=== PATIENT | male | born 1955 | race Caucasian/White ===

== ENCOUNTER → 2024-01-01 12:15 | Outpatient (REF) | payer BC, SELFPAY ==
[2024-01-01 15:10] LABS: % Basophils 0.5 % (0-2); % Eosinophils 1.3 % (0-6); % Immature Granulocytes 0.8 % (0-0.5); % Lymphocytes 8.6 % (20.5-51.1); % Monocytes 11.8 % (1.7-9.3); Absolute Eosinophils 0.1 10^3/uL (0-0.7); Absolute Immature Granulocytes 0.1 10^3/uL (0-0.05); Absolute Lymphocytes 0.7 10^3/uL (1.2-3.4); Absolute Monocytes 0.9 10^3/uL (0.1-0.6); Absolute Neutrophils 6.1 10^3/uL (1.4-6.5); Hematocrit 32.1 % (39.0-52.0); Hemoglobin 11.5 g/dL (13.0-18.0); Mean Corp Hgb Conc. 35.8 g/dL (33.0-37.0); Mean Corpuscular Hgb 34.8 pg (27.0-31.0); Mean Corpuscular Volume 97.3 fL (80.0-94.0); Mean Platelet Volume 8.6 fL (7.4-10.4); Nucleated Red Blood Cells % 0 % (-); Platelet Count 512 10^3/uL (130-400); Red Cell Dist. Width 12.3 % (11.5-14.5); White Blood Cell Count 7.9 10^3/uL (4.8-10.8)
[2024-01-01 15:13] LABS: ALT (SGPT) 17 U/L (0-50); AST (SGOT) 23 U/L (17-59); Albumin 4.2 g/dl (3.5-5.0); Alkaline Phosphatase 69 U/L (38-126); Blood Urea Nitrogen 12 mg/dl (9-20); Calcium 9.3 mg/dl (8.4-10.2); Carbon Dioxide 22 mmol/L (22-30); Chloride 97 mmol/L (98-107); Glucose 120 mg/dl (70-99); Potassium 3.9 mmol/L (3.5-5.1); Sodium 126 mmol/L (135-145); Total Bilirubin 0.5 mg/dl (0.2-1.3); eGFR > 60.00
== END ==
LOC: HWLAB 12:15
PROVIDERS: ATTENDING PHYSICIAN Internal Medicine
DX: N39.0 Urinary tract infection, site not specified (principal)
CPT/HCPCS: 36415; 80053; 85025

== ENCOUNTER → 2024-01-04 13:14 | Outpatient (REF) | payer BC, SELFPAY ==
[2024-01-04 16:21] LABS: % Basophils 0.6 % (0-2); % Immature Granulocytes 0.6 % (0-0.5); % Monocytes 11.6 % (1.7-9.3); % Neutrophils 77.2 % (42.2-75.2); Absolute Basophils 0.1 10^3/uL (0-0.2); Absolute Eosinophils 0.1 10^3/uL (0-0.7); Absolute Immature Granulocytes 0.1 10^3/uL (0-0.05); Absolute Lymphocytes 0.8 10^3/uL (1.2-3.4); Absolute Neutrophils 6.7 10^3/uL (1.4-6.5); Hematocrit 31.4 % (39.0-52.0); Hemoglobin 11.2 g/dL (13.0-18.0); Mean Corp Hgb Conc. 35.7 g/dL (33.0-37.0); Mean Corpuscular Hgb 34.5 pg (27.0-31.0); Mean Corpuscular Volume 96.6 fL (80.0-94.0); Mean Platelet Volume 8.7 fL (7.4-10.4); Nucleated Red Blood Cells % 0 % (-); Platelet Count 467 10^3/uL (130-400); Red Blood Cell Count 3.25 10^6/uL (4.70-6.10); Red Cell Dist. Width 12.3 % (11.5-14.5); White Blood Cell Count 8.6 10^3/uL (4.8-10.8)
[2024-01-04 16:42] LABS: Blood Urea Nitrogen 15 mg/dl (9-20); Calcium 9.6 mg/dl (8.4-10.2); Carbon Dioxide 22 mmol/L (22-30); Chloride 97 mmol/L (98-107); Glucose 115 mg/dl (70-99); Iron 80 ug/dl (49-181); Potassium 4.2 mmol/L (3.5-5.1); Sodium 130 mmol/L (135-145); eGFR > 60.00
[2024-01-04 16:51] LABS: Percent Saturation 30 % (20-50); Total Iron Binding Capacity 264 ug/dl (261-462)
[2024-01-04 17:28] LABS: Vitamin B12 277 pg/ml (239-931)
== END ==
LOC: HWLAB 13:14
PROVIDERS: ATTENDING PHYSICIAN Nurse Practitioner Family
DX: E87.1 Hypo-osmolality and hyponatremia (principal); R30.0 Dysuria; D64.9 Anemia, unspecified
CPT/HCPCS: 36415; 80048; 82607; 82728; 83540; 83550; 85025

== ENCOUNTER → 2024-01-10 13:13 | Outpatient (REF) | payer BC, SELFPAY ==
[2024-01-10 15:45] LABS: Blood Urea Nitrogen 22 mg/dl (9-20); Calcium 9.5 mg/dl (8.4-10.2); Carbon Dioxide 23 mmol/L (22-30); Chloride 99 mmol/L (98-107); Glucose 111 mg/dl (70-99); Sodium 133 mmol/L (135-145); eGFR > 60.00
== END ==
LOC: HWLAB 13:13
PROVIDERS: ATTENDING PHYSICIAN Nurse Practitioner Family
DX: E87.1 Hypo-osmolality and hyponatremia (principal)
CPT/HCPCS: 36415; 80048

== ENCOUNTER → 2024-02-07 13:33 | Outpatient (REF) | payer BC, SELFPAY ==
[2024-02-07 16:08] LABS: % Basophils 0.6 % (0-2); % Eosinophils 1.4 % (0-6); % Immature Granulocytes 0.8 % (0-0.5); % Lymphocytes 11.1 % (20.5-51.1); % Monocytes 10.5 % (1.7-9.3); % Neutrophils 75.6 % (42.2-75.2); Absolute Basophils 0.1 10^3/uL (0-0.2); Absolute Eosinophils 0.1 10^3/uL (0-0.7); Absolute Immature Granulocytes 0.1 10^3/uL (0-0.05); Absolute Lymphocytes 0.9 10^3/uL (1.2-3.4); Absolute Monocytes 0.9 10^3/uL (0.1-0.6); Absolute Neutrophils 6.3 10^3/uL (1.4-6.5); Hematocrit 33.7 % (39.0-52.0); Hemoglobin 12.1 g/dL (13.0-18.0); Mean Corp Hgb Conc. 35.9 g/dL (33.0-37.0); Mean Corpuscular Hgb 34.3 pg (27.0-31.0); Mean Corpuscular Volume 95.5 fL (80.0-94.0); Mean Platelet Volume 8.7 fL (7.4-10.4); Nucleated Red Blood Cells % 0 % (-); Platelet Count 416 10^3/uL (130-400); Red Blood Cell Count 3.53 10^6/uL (4.70-6.10); Red Cell Dist. Width 13.2 % (11.5-14.5); White Blood Cell Count 8.3 10^3/uL (4.8-10.8)
[2024-02-07 16:40] LABS: ALT (SGPT) 31 U/L (0-50); AST (SGOT) 35 U/L (17-59); Albumin 4.6 g/dl (3.5-5.0); Alkaline Phosphatase 88 U/L (38-126); Blood Urea Nitrogen 20 mg/dl (9-20); Calcium 9.8 mg/dl (8.4-10.2); Carbon Dioxide 20 mmol/L (22-30); Chloride 97 mmol/L (98-107); Glucose 113 mg/dl (70-99); Potassium 5.1 mmol/L (3.5-5.1); Sodium 131 mmol/L (135-145); Total Bilirubin 1.3 mg/dl (0.2-1.3); Total Protein 7.6 g/dl (6.3-8.2); eGFR > 60.00
[2024-02-07 17:04] LABS: PSA, Total - Diagnostic < 0.06 ng/ml (0.0-4.0)
[2024-02-09 16:12] LABS: Alk Phos Bone Specific Results 12.4 ug/L (6.5-20.1)
== END ==
LOC: HWLAB 13:33
PROVIDERS: ATTENDING PHYSICIAN Urology; FAMILY PHYSICIAN Nurse Practitioner Family; REFERRING PHYSICIAN Internal Medicine
DX: R39.14 Feeling of incomplete bladder emptying (principal); N39.0 Urinary tract infection, site not specified; E87.1 Hypo-osmolality and hyponatremia; C61 Malignant neoplasm of prostate
CPT/HCPCS: 36415; 80053; 84075; 84153; 85025

== ENCOUNTER → 2024-04-03 13:30 | Outpatient (REF) | payer BC, SELFPAY ==
[2024-04-03 16:05] LABS: Blood Urea Nitrogen 17 mg/dl (9-20); Calcium 9.9 mg/dl (8.4-10.2); Carbon Dioxide 22 mmol/L (22-30); Chloride 97 mmol/L (98-107); Glucose 107 mg/dl (70-99); Potassium 4.4 mmol/L (3.5-5.1); Sodium 131 mmol/L (135-145); eGFR > 60.00
== END ==
LOC: HWLAB 13:30
PROVIDERS: ATTENDING PHYSICIAN Nurse Practitioner Family
DX: E87.1 Hypo-osmolality and hyponatremia (principal)
CPT/HCPCS: 36415; 80048

== ENCOUNTER → 2024-05-13 09:51 | Outpatient (REF) | payer BC, SELFPAY | LOC: HWRCS 09:51 | PROVIDERS: ATTENDING PHYSICIAN Nurse Practitioner Family | DX: R60.9 Edema, unspecified (principal) | CPT/HCPCS: 93306 ==

== ENCOUNTER → 2024-05-21 09:23 | Outpatient (REF) | payer BC, SELFPAY ==
[2024-05-21 12:30] LABS: % Basophils 0.9 % (0-2); % Eosinophils 1.6 % (0-6); % Immature Granulocytes 0.7 % (0-0.5); % Lymphocytes 11.3 % (20.5-51.1); % Monocytes 18.2 % (1.7-9.3); % Neutrophils 67.3 % (42.2-75.2); Absolute Basophils 0.1 10^3/uL (0-0.2); Absolute Eosinophils 0.1 10^3/uL (0-0.7); Absolute Lymphocytes 0.6 10^3/uL (1.2-3.4); Absolute Neutrophils 3.7 10^3/uL (1.4-6.5); Hematocrit 33.1 % (39.0-52.0); Mean Corp Hgb Conc. 36.3 g/dL (33.0-37.0); Mean Corpuscular Hgb 34.8 pg (27.0-31.0); Mean Corpuscular Volume 95.9 fL (80.0-94.0); Mean Platelet Volume 8.7 fL (7.4-10.4); Nucleated Red Blood Cells % 0 % (-); Platelet Count 459 10^3/uL (130-400); Red Blood Cell Count 3.45 10^6/uL (4.70-6.10); Red Cell Dist. Width 12.4 % (11.5-14.5); White Blood Cell Count 5.5 10^3/uL (4.8-10.8)
[2024-05-21 12:49] LABS: ALT (SGPT) 18 U/L (0-50); AST (SGOT) 28 U/L (17-59); Albumin 4.8 g/dl (3.5-5.0); Alkaline Phosphatase 62 U/L (38-126); Blood Urea Nitrogen 14 mg/dl (9-20); Carbon Dioxide 25 mmol/L (22-30); Chloride 94 mmol/L (98-107); Glucose 119 mg/dl (70-99); Potassium 4.4 mmol/L (3.5-5.1); Sodium 132 mmol/L (135-145); Total Bilirubin 1.1 mg/dl (0.2-1.3); Total Protein 7.4 g/dl (6.3-8.2); eGFR > 60.00
[2024-05-21 13:15] LABS: TSH Reflex To Free T4 0.97 uIU/ml (0.47-4.68)
[2024-05-21 14:36] LABS: Glycohemoglobin (HgbA1c) 5.2 % (4.0-5.6)
== END ==
LOC: HWRAD 09:23
PROVIDERS: ATTENDING PHYSICIAN Nurse Practitioner Family
DX: R63.4 Abnormal weight loss (principal); R13.10 Dysphagia, unspecified; R39.198 Other difficulties with micturition
CPT/HCPCS: 36415; 71046; 80053; 83036; 84443; 85025

== ENCOUNTER 2024-05-26 19:54 | Inpatient (IN) | payer BC, SELFPAY ==
[2024-05-26] VITALS (7 sets, daily range): BP systolic 112–131; BP diastolic 61–82; BMI 21.6
[2024-05-26 17:48] LABS: ALT (SGPT) 17 U/L (0-50); AST (SGOT) 31 U/L (17-59); Albumin 4.3 g/dl (3.5-5.0); Alkaline Phosphatase 64 U/L (38-126); Blood Urea Nitrogen 20 mg/dl (9-20); Calcium 9.5 mg/dl (8.4-10.2); Carbon Dioxide 19 mmol/L (22-30); Chloride 88 mmol/L (98-107); Glucose 104 mg/dl (70-99); Potassium 4.3 mmol/L (3.5-5.1); Sodium 124 mmol/L (135-145); Total Protein 6.8 g/dl (6.3-8.2); eGFR 51.03
--- NOTE | 2024-05-26 18:12 | ED.GENMED ---
History of Present Illness
General
Chief Complaint: Throat Problem
Source: patient and spouse
Time Seen by Provider: 05/26/24 17:59
History of Present Illness
History of Present Illness:
This patient is a 68-year-old male with a 1 month history of progressive in the back of his throat that feels like a 'burning' associated with difficulty swallowing such that he can tolerate liquid but very few solids. He has had a 14 pound weight
loss over the last month because of inability to tolerate solids. He notes a progressive change in his voice and discomfort on the lateral aspect of his anterior neck particular on the left side. Patient was recently diagnosed with a UTI and is
currently taking Levaquin. He saw his doctor regarding the symptoms last week and had a throat culture, chest x-ray, and labs that were reportedly unremarkable.
Past History
Past History
ED Past Medical History: Cancer (prostate), HTN and Other (kidney stones)
ED Past Surgical History: Orthopedic and Urological (lithotripsies)
Social History
Tobacco: Smoker
Alcohol: Daily (5 beers)
Drug: None and Marijuana
Personal:
Living: with family
Employment: Employed
Phy Exam
Physical Exam
Physical Exam:
GENERAL: Alert , in no apparent distress
EYE: pupils equal and reactive
NECK: Supple, bilat princess noted
ENT: mm dry, o/p no trismus, voice sl muffled, no drool, tolerating secretions. Uvula midline, no post pharyng erythema. There is asx of tongue ?R more superio than L posteriorly. No stridor. No fllor of mouth elevation, no submental swelling
or ttp
CARDIAC: Regular rate and rhythm .
LUNGS: Clear breath sounds bilaterally, no acute respiratory distress, no wheezes/rales/rhonchi
ABDOMEN: Soft, without focal tenderness, no r/g, no cvat
NEUROLOGICAL: Alert and oriented, no focal neuro deficits
SKIN: Warm and dry, skin intact.
MUSCULOSKELETAL: No edema, well perfused.
PSYCH: Normal and appropriate interaction.
Course
Orders/Labs/Results
Orders:
Orders
05/26/24 Dinner
NPO
Allow oral meds: Yes
Allow clear liquids: Sips of Clears
05/26/24 17:13
CMP [Comprehensive Metabolic Panel] Urgent
Complete Blood Count/With Diff Urgent
05/26/24 18:11
CT Neck With Iv Contrast Urgent
Comment:
Reason For Exam: voice change, throat pain
05/26/24 19:04
Viscous Lidocaine 2% [Xylocaine Viscous Cup] 15 ml PO NOW STA
05/26/24 19:44
Admit/Transfer Patient As Directed
Co-Sign Provider:
Level of Care: Inpatient admission
Assign to:: IMU- Intermediate Care
Physician / Group: Hospitalist
Diagnosis: dysphagia with Oropharyngeal mass
Reason for Hospitalization: hyponatremia, dysphagia
Expected length of stay greater than two midnights?: Yes
ELOS- Estimated Length of Stay in days: 2
I certify the patient meets the requirements for IP care: Yes
05/26/24 19:45
Code Status As Directed
Resuscitation Status: Full Code
PRN Pain Medication Management As Directed
May give lesser potent ordered pain med per pt: Yes
preference::
Protocol:: Medication orders for pain may be administered in a
manner that supports deferring to patient preference
when the pt is:
- Requesting an ordered lesser potent pain medication.
Least to most potent pain medications are defined
as: acetaminophen < NSAID < tramadol < opioids
(morphine, oxycodone, hydromorphone).
- Requesting a lesser dose of the same medication IF
ORDERED.
- Requesting a less intrusive route of administration
if both routes are prescribed by the provider (PO <
IV).
05/26/24 19:50
0.9% Sodium Chloride 1000 ml [Nss] 1,000 ml IV BOLUS
05/26/24 20:22
0.9% Sodium Chloride 1000 ml [Nss] 1,000 ml IV 100 mls/hr
Acetaminophen [Tylenol] 650 mg PO Q4HPRN PRN
HYDROmorphone [Dilaudid] 0.5 mg IV Q4HPRN PRN
Mag Hydrox/Al Hydrox/Simeth [Maalox] 30 ml PO Q6HPRN PRN
Polyethylene Glycol Powder [Miralax] 17 grams PO DAILYPRN PRN
Viscous Lidocaine 2% [Xylocaine Viscous Cup] 15 ml PO Q3HPRN PRN
05/26/24 20:22
ENT CONSULT Routine
Consulting Provider: Zeeshan Gusman
Was physician already notified: Yes
Reason for Consult: base of tonuge and vallecula mass with dysphagia
Activity As Directed
Activity Level: With Assistance
Vital Signs As Directed
Frequency: Per unit guidelines
DX Deep Vein Thrombosis Video Routine
05/26/24 20:44
Urine Osmolality Random [Osmolality, Random Urine] Stat
Date Specimen was Collected: 05/26/24
Time Specimen was Collected: 20:24
Urine Sodium Stat
Date Specimen was Collected: 05/26/24
Time Specimen was Collected: 20:24
05/26/24 22:00
LevoFLOXacin [Levaquin] 500 mg PO HS
05/26/24 23:30
BMP [Basic Metabolic Panel] Routine
05/27/24 06:00
Basic Metabolic Panel IN AM
05/27/24 08:00
Amlodipine [Norvasc] 10 mg PO DAILY
Irbesartan [Avapro] 300 mg PO DAILY
05/27/24 12:00
Tamsulosin [Flomax] 0.4 mg PO NOON
05/27/24 18:00
Enoxaparin Sodium [Lovenox] 40 mg SC QPM
Abnormal Lab Results
05/26/24
17:13
RBC 2.89 L 10^6/uL
(4.70-6.10)
Hgb 10.3 L g/dL
(13.0-18.0)
Hct 27.3 L %
(39.0-52.0)
MCV 94.5 H fL
(80.0-94.0)
MCH 35.6 H pg
(27.0-31.0)
MCHC 37.7 H g/dL
(33.0-37.0)
Plt Count 473 H 10^3/uL
(130-400)
Absolute Lymphs (auto) 0.3 L 10^3/uL
(1.2-3.4)
Absolute Monos (auto) 0.8 H 10^3/uL
(0.1-0.6)
Immature Gran % 0.8 H %
(0-0.5)
Neutrophils % 77.3 H %
(42.2-75.2)
Lymphocytes % 5.1 L %
(20.5-51.1)
Monocytes % 15.2 H %
(1.7-9.3)
Sodium 124 L mmol/L
(135-145)
Chloride 88 L mmol/L
(98-107)
Carbon Dioxide 19 L mmol/L
(22-30)
Creatinine 1.5 H mg/dL
(0.7-1.3)
Glucose 104 H mg/dl
(70-99)
05/26/24 17:13
05/26/24 17:13
Vital Signs
Initial and Last Documented VS:
Initial Vital Signs
Temp Pulse Resp BP Pulse Ox
98.0 F 74 20 116/82 100
05/26/24 17:04 05/26/24 17:04 05/26/24 17:04 05/26/24 17:04 05/26/24 17:04
Last Documented Vital Signs
Temp Pulse Resp BP Pulse Ox
98.1 F 87 15 130/61 98
05/26/24 20:30 05/26/24 19:15 05/26/24 19:15 05/26/24 19:13 05/26/24 20:33
*Critical Care Note
Total Time (30-74mins, 75-104mins- exclusive of procedures): Not Applicable
Update Note
Update Note:
Patient presents to the Emergency Department with ____throat burning and trouble tolerating food
Number and Complexity of Problems Addressed at the Encounter
� Chronic conditions affecting care:
� Acute Exacerbation and/or Progression of Chronic Illness:
� Differential Diagnosis includes: But not limited to esophageal stricture, esophageal mass/cancer, throat/tongue mass/cancer, etc.
Amount and/or Complexity of Data to be Reviewed and Analyzed
� I performed an independent evaluation of and my interpretation is:
EKG:
CT:1). There is a 2.5 cm soft tissue mass at the midline vallecula and tongue base worrisome for malignancy.
Endoscopy and/or PET scan is recommended for further evaluation.
2). There is a 1 cm calcification lateral to the right arytenoid cartilage which is of uncertain significance
3). Atherosclerosis.
4). Mild similar changes apices
Xrays:
Laboratory Studies:renal insufficiency, anemia
Other:
� Review of other/old records reveals:
� Clinical information was obtained by an independent historian: who is bedside
� Prescriptions/Medications Considered but not given:
� Further testing considered but not performed:
Risk of Complications and/or Morbidity or Mortality of Patient Management
� Social determinants of health affecting care:
� Discussion with other providers (PCP, Hospitalists, Consultants, etc):
� Escalation of care including admission/observation vs risk of discharge considered:703 pm pt's airway remains patent, no impending resp distress. CT noted, Pt and aware, understand likely represents malignancy. Will
admit overnight with plan for ENT scope in AM, airway monitoring overnight, etc. D/w hospitalist via tt.
ED Attending Note
-
Portions of this chart may have been created with voice recognition software.� Occasional wrong word or��sound alike� substitutions may have occurred due to the inherent limitations of voice recognition software.
Discharge Plan
Departure
Patient Disposition: Admit
Date of Disposition: 05/26/24
Time of Disposition: 19:03
Presentation/result/management discussed w/ accepting MD/DO: Hospitalist
Condition: Fair
Discharge Problem:
Mass of tongue
Interventions
Interventions:
*Risk Screen - Suicide Last Done: 05/26/24 18:03
*General Assessment Last Done: 05/26/24 18:03
*Neglect/Abuse Screening Last Done: 05/26/24 18:03
*ED COVID-19 Vaccine History Last Done: 05/26/24 18:03
*Nursing Disposition Last Done: 05/26/24 20:18
ED-EENT Assessment Last Done: 05/26/24 18:03
ED- Pulmonary Assessment Last Done: 05/26/24 20:18
Discharge Date and Time
Discharge Date/Time: 05/26/24 20:18
[2024-05-26 18:39] LABS: Hematocrit 27.3 % (39.0-52.0); Hemoglobin 10.3 g/dL (13.0-18.0); Red Blood Cell Count 2.89 10^6/uL (4.70-6.10); White Blood Cell Count 5.1 10^3/uL (4.8-10.8)
[2024-05-26 18:40] LABS: % Neutrophils 77.3 % (42.2-75.2); Mean Corp Hgb Conc. 37.7 g/dL (33.0-37.0); Mean Corpuscular Hgb 35.6 pg (27.0-31.0); Mean Corpuscular Volume 94.5 fL (80.0-94.0); Mean Platelet Volume 9.1 fL (7.4-10.4); Platelet Count 473 10^3/uL (130-400)
[2024-05-26 18:41] LABS: % Basophils 0.8 % (0-2); % Eosinophils 0.8 % (0-6); % Immature Granulocytes 0.8 % (0-0.5); % Lymphocytes 5.1 % (20.5-51.1); % Monocytes 15.2 % (1.7-9.3); Absolute Lymphocytes 0.3 10^3/uL (1.2-3.4)
[2024-05-26 18:42] LABS: Absolute Monocytes 0.8 10^3/uL (0.1-0.6); Nucleated Red Blood Cells % 0 % (-)
[2024-05-26] MEDS: XYLOCAINE VISCOUS CUP 15 ML PO ×2 (19:11→22:10)
--- NOTE | 2024-05-26 19:31 | HPS.HSE ---
Family Physician
-
Family Physician: NEMO Chauhan
Chief Complaint
-
Difficulty swallowing
History of Present Illness
This is a 69-year-old male with a past medical history of prostate cancer status. 1 year ago complicated by recurrent urinary tract infection and incontinence, history of hyponatremia and hypertension who presents to the emergency
department with approximately 3 weeks ago for worsening dysphagia and odynophagia.
Patient reports been usual state of health up until about 3 weeks ago when he started developing soreness in the back of his throat associated with worsening of pain with intake of solids. He is still able to tolerate liquids and heavily chewed
solids. He denies any pain going down his chest. He reports feeling of fullness in his neck and ears. He reports that he tries to eat any solid he ends up regurgitating this. Patient denies any prior episodes. He does have a history of
cigarette smoking and alcohol use. He denies any intercurrent neck swelling, fevers chills cough or shortness of breath. Denies having any stridor. Denies night sweats. Reports 14 Ib weight loss.
He actually saw his PCP last week who recommended evaluation and the patient has a pending outpatient ENT/Scope evaluation on June 03. However he is now unable to tolerate the discomfort and decided come to the emergency department.
Reviewed patient reports that he does have recurrent urinary tract infection for which he is on day 5 of 7 of Levaquin.
Denies having any diarrhea, nausea or vomiting. 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 He reports that he still continues to drink to some degree.
In the emergency department the patient was afebrile, hemodynamically stable and had a normal oxygen saturation on room air. CT neck shows a 2.5 cm soft tissue mass at the midline vallecula and tongue base worrisome for malignancy. He is CBC is
unchanged from prior. Chemistries notable for a sodium of 124, bicarb of 19 BUN of 20 and a creatinine of 1.5 with a glucose of 104.
Endoscopy and/or PET scan is recommended for further evaluation.
Medical History
Past Medical History
Past Medical History: Reports HTN
Additional Past Medical History:
Prostate Ca s/p TURP
Hyponatremia
Past Surgical History: Reports Urological
Social History
Tobacco: Smoker
Alcohol: Daily
Drug: None
Personal:
Living: With Family
Employment: Not Employed
Family History
Family History: Not pertinent
Allergies / Home Medications
Allergies reflects when Allergies were last updated in [facility].
Home Medications with original date entered in [facility]
Allergy/Medication List:
Allergies
Allergy/AdvReac Type Severity Reaction Status Date / Time
bee venom protein (honey bee) Allergy Severe Anaphylaxis Verified 05/26/24 17:06
Penicillins Allergy Rash Verified 05/26/24 17:06
Home Medications
alfuzosin 10 mg tablet,extended release 24 hr 10 mg PO DAILY Antirheumatic, Disease Modifying 05/01/23
amlodipine 10 mg tablet (Norvasc) 10 mg PO DAILY Blood Pressure 05/01/23
cholecalciferol (vitamin D3) 25 mcg (1,000 unit) tablet (Vitamin D3) 25 mcg PO DAILY Supplement 05/01/23
irbesartan 300 mg tablet 300 mg PO DAILY Blood Pressure 05/01/23
Review of Systems
-
History Source: Family
Constitutional: Reports Weight Loss
EENT: Reports Sore Throat and Other (oropharyngeal dysphagia)
Respiratory: Reports No Symptoms
Cardiac: Reports No Symptoms
Abdomen/GI: Reports No Symptoms
: Reports Incontinence
Musculoskeletal: Reports No Symptoms
Skin: Reports No Symptoms
Neurological: Reports No Symptoms
Endocrine: Reports No Symptoms
Hematologic/Lymphatic: Reports No Symptoms
Psych: Reports No Symptoms
Physical Exam
Vital Signs
Vital Signs
Temp Pulse Resp BP Pulse Ox
98.0 F 87 15 130/61 99
05/26/24 17:04 05/26/24 19:15 05/26/24 19:15 05/26/24 19:13 05/26/24 19:15
Physical Exam
General: Appears in Distress
HEENT: NormoCephalic, Anicteric, Moist mucous membranes, Atraumatic, PERRLA, Neck Mass and Other (submental lymphadenopathy)
Respiratory: Clear
Cardiac: S1/S2 and Regular Rhythm
Breast: Deferred by me
GI: Soft, Non Tender, Non Distended and Normal Bowel Sounds
Rectal: Deferred by Provider
Genito-urinary: Deferred by me
Musculoskeletal: No Clubbing, No Cyanosis and No Edema
Skin: Warm
Neuro: AO x 3
Hematologic/Lymphatic: Lymphadenopathy
Psych: Calm
Laboratory Results
-
05/26/24 17:13
05/26/24 17:13
Laboratory Results
Total Bilirubin 1.0 mg/dl (0.2-1.3) 05/26/24 17:13
AST 31 U/L (17-59) 05/26/24 17:13
ALT 17 U/L (0-50) 05/26/24 17:13
Alkaline Phosphatase 64 U/L (38-126) 05/26/24 17:13
Data Reviewed
-
CT Scan: Report Reviewed by me
Lab Data: Labs Reviewed by me
Old Records: Reviewed
Impression/Plan
-
IMPRESSION:
PLAN:
1. Dysphagia/odynophagia - There is a 2.5 cm soft tissue mass at the midline vallecula and tongue base worrisome for malignancy. No obvious abscess on imaging. Currently without stridor and no respiratory difficulty. 14 Ib weight loss.
- admit to IMU for close airway monitoring
- NPO for now except sips
- Dr Lucero of ENT aware and consulted.
- topical lidocaine and pain control
- no stridor or airway compromise, no indication for steroids at this time
- IV NS for now.
2. Hyponatremia - H/O polydipsic hyponatremia with correction on fluid restriction. However has decreased po intake but with mostly electrolyte free fluid intake and a 14 Ib weightloss with mild MERON suggestive of hypovolemia as well.
- urine osmolality and lytes
- free water restriction for now, repeat chem in 4 hours
- Normal saline bolus 1L and re-evaluate
3. MERON - Suspect hypovolemic
- IV hydration as above
- holding ARB for now
4. Recurrent UTI
- patient finishing course of levaquin 500mg HS on 05/27
DVT PPX - lovenox sq
Full Code
[2024-05-26] MEDS: LEVAQUIN 500 MG PO (20:59)
[2024-05-26 21:03] LABS: Osmolality Urine 182 mOsm/kg (300-900)
[2024-05-26] MEDS: NSS 1000 IV (21:05)
[2024-05-26 21:09] LABS: Urine Sodium 13 mmol/L (30-90)
[2024-05-26 23:43] LABS: Blood Urea Nitrogen 18 mg/dl (9-20); Calcium 9.2 mg/dl (8.4-10.2); Carbon Dioxide 26 mmol/L (22-30); Chloride 91 mmol/L (98-107); Estimated Creatinine Clearance 51 ml/min; Glucose 94 mg/dl (70-99); Potassium 4.4 mmol/L (3.5-5.1); Sodium 128 mmol/L (135-145); eGFR > 60.00
[2024-05-27] VITALS (7 sets, daily range): BP systolic 107–141; BP diastolic 56–76; BMI 21.6
--- NOTE | 2024-05-27 02:29 | PTCARENOTE ---
pt admitted from ED, pt is AAOx3- able to make needs known. pt passed swallow screening, able to tolerate liquids, states swallowing solids is hard. pt able to walk into room by self without issues. IV fluids hung, BMP drawn per order. PRN viscous
lidocaine given for throat pain, pt reports this helps a lot. pt did have a large BM tonight, states he has been constipated lately. on RA 98%, no c/o SOB or trouble breathing. tongue noted to have black spots on side, more on R. pt oriented to new
room, call within reach, care ongoing.
[2024-05-27] MEDS: XYLOCAINE VISCOUS CUP 15 ML PO ×3 (04:35→20:20)
[2024-05-27 05:22] LABS: Blood Urea Nitrogen 16 mg/dl (9-20); Calcium 9.5 mg/dl (8.4-10.2); Carbon Dioxide 26 mmol/L (22-30); Chloride 93 mmol/L (98-107); Estimated Creatinine Clearance 59 ml/min; Glucose 101 mg/dl (70-99); Potassium 4.6 mmol/L (3.5-5.1); Sodium 131 mmol/L (135-145); eGFR > 60.00
[2024-05-27] MEDS: NSS 1000 IV ×2 (06:18→16:22)
[2024-05-27] MEDS: NORVASC 10 MG PO (09:29)
--- NOTE | 2024-05-27 10:32 | W.PN.HOSP.TC ---
Today's Communication/Plan
-
Speech and swallow eval
ENT eval
Downgrade to MedSurg/telemetry
Assessment / Plan
Assessment / Plan
IMPRESSION:
69-year-old male presents for 3 weeks of progressive dysphagia and odontophagia, CT showed a 2.5 cm soft tissue mass of midline vallecula and tongue base
PLAN:
#Dysphagia/odynophagia
- There is a 2.5 cm soft tissue mass at the midline vallecula and tongue base worrisome for malignancy. No obvious abscess on imaging. Currently without stridor and no respiratory difficulty. 14 Ib weight loss.
-Consider downgrade from IMU as there is no impending airway compromise
-Was n.p.o., transition to clear liquids. Tolerating clear liquids well
-ENT consulted
-topical lidocaine mouthwash and pain control
-no stridor or airway compromise, no indication for steroids at this time
-IV fluids, discontinued
#Hyponatremia
- H/O polydipsic hyponatremia with correction on fluid restriction. However has decreased po intake but with mostly electrolyte free fluid intake and a 14 Ib weightloss with mild MERON suggestive of hypovolemia as well.
- urine osmolality and lytes
- free water restriction
-Status post IV fluids, currently holding
#MERON - Suspect hypovolemic
-Resolved
-Creatinine 1.1 this morning
-Status post IV fluids
- holding ARB, consider reinitiation of ARB
#Recurrent UTI
- patient finishing course of levaquin 500mg HS on 05/27
-Last day of Levaquin, will reevaluate symptoms in the morning
DVT PPX - lovenox sq
Diet: Clear liquids
Full Code
Anticipated Discharge: 24 - 48 hours
Subjective/Interval History
-
Date of Service: May 27, 2024
No acute events overnight
Objective Data
-
Labs:
Laboratory Results
05/26/24 05/27/24
23:17 04:40
Sodium 128 L 131 L
Potassium 4.4 4.6
Chloride 91 L 93 L
Carbon Dioxide 26 26
BUN 18 16
Creatinine 1.3 1.1
Glucose 94 101 H
Calcium 9.2 9.5
Vital Signs:
Vital Signs
Temp Pulse Resp BP Pulse Ox
98.1 F 68 16 124/66 97
05/27/24 07:12 05/27/24 06:00 05/27/24 06:00 05/27/24 06:00 05/27/24 06:00
I&O
05/26/24 05/27/24 05/28/24
06:59 06:59 06:59
Intake Total 240 / 240
Output Total 150 / 150 225 / 225
Balance 90 / 90 -225 / -225
Review of Systems
-
History Source: Patient
Constitutional: Reports Weight Loss (14)
EENT: Reports Sore Throat, Mouth Pain, Tinnitis and Other (lymphadnopathy )
Respiratory: Reports No Symptoms
Cardiac: Reports No Symptoms
Musculoskeletal: Reports No Symptoms
Physical Exam
-
General: Well Developed, Well Nourished, No Apparent Distress and Conversant
HEENT: Moist Mucous Membranes and Other (lymphadnopathy, back of throat mass visualized slightly )
Respiratory: Clear to Auscultation
Cardiac: Regular Rhythm and S1/S2
GI: Soft, Nontender, Nondistended and Normal Bowel Sounds
Skin: Warm and Dry
Neuro: Awake, Alert, Oriented and AO x 3
Psych: Calm and Intact Judgement/Insight
Data Reviewed
-
Labs: Labs Reviewed by me and Discussed with Physician
--- NOTE | 2024-05-27 11:00 | PTOTSP ---
Speech Language Pathology
Pt seen for clinical bedside swallow evaluation. P.O. trials of puree and thin liquids provided. Pt reported some mild pharyngeal residue with puree. Took large sips of thin liquids. No immediate cough with brief dry cough noted x1. VSE ordered.
Recommend:
(1) NPO pending VSE
(2) Oral care 4x/day with suctioning as needed
(3) Aspiration Risk Hydration Protocol (ARHP) pending VSE
(4) NURSE ORTHOPAEDIC to continue to follow
--- NOTE | 2024-05-27 11:44 | CM ---
CM reviewed medical records. CM met with patient and in room. Patient confirmed demographics. Patient lives in a multi story home and reports no issues negotiating the stairs. Patient confirmed history of VN, but not currently on service.
Patient does not have a history of SNF. Patient is active with his PCP. Patient uses [facility] for medication services.
CM will remain available for discharge planning. Patient is currently NPO and pending VSE.
PLAN: home vs. Home with VN
--- NOTE | 2024-05-27 11:50 | PTOTSP ---
Speech Language Pathology
VIDEOFLUOROSCOPIC SWALLOWING EXAMINATION (VSE) completed. Overall, pt with mild pharyngeal dysphagia with transient aspiration x1 with thin liquid via tsp; otherwise penetration noted with thin liquids, which cleared with a cued throat clear. Only
trace to mild pharyngeal residue noted.
Recommend:
(1) Regular solids/thin liquids
(2) Aspiration precautions: sit upright, single sips, slow rate, intermittent throat clear
(3) Meds as tolerated
(4) [employer] to continue to follow
--- NOTE | 2024-05-27 12:16 | W.PN.ENT ---
Today's Communication
-
Patient not present at time of rounding; will return later in PM
Objective Data
-
Vital Signs
Temp Pulse Resp BP Pulse Ox
98.3 F 68 16 124/66 97
05/27/24 11:31 05/27/24 06:00 05/27/24 06:00 05/27/24 06:00 05/27/24 12:06
Intake & Output
05/26/24 05/27/24 05/28/24
06:59 06:59 06:59
Intake:
Oral fluids 240 / 240
Output:
Urine, Voided 150 / 150 225 / 225
Other:
Number of approximated MODERATE 3
amounts of urine
How many times incontinent 3
SATURATED amount urine
Lab Results
05/26/24 17:13
05/27/24 04:40
Calcium 9.5 mg/dl (8.4-10.2) 05/27/24 04:40
Total Bilirubin 1.0 mg/dl (0.2-1.3) 05/26/24 17:13
AST 31 U/L (17-59) 05/26/24 17:13
ALT 17 U/L (0-50) 05/26/24 17:13
Alkaline Phosphatase 64 U/L (38-126) 05/26/24 17:13
[2024-05-27] MEDS: FLOMAX 0.4 MG PO (13:17)
--- NOTE | 2024-05-27 14:24 | W.PN.UPDATE ---
Update Note
Progress Note Update
I saw and evaluated the patient. I reviewed the resident�s note and agree with findings and plan as documented in the resident�s note.
Patient complaining of having burning pain in mouth and throat pain, which is better after magic mouthwash.
No shortness of breath/hemoptysis
Symptom has been ongoing from earlier a month and patient was seen by primary care physician. Plan to see an ENT in office on 03 june.
1. Tongue mass
- CT neck showing 2.5 cm soft tissue mass at midline vallecula and tongue base
- On exam patient have rigid lymphadenopathy on submandibular area.
- have h/o of smoking. no f/h of cancer.
- Patient having some gurgling sound on exam. VSE did not show any aspiration. maintain on CL diet for now
- ENT contacted for further evaluation
- NO signs of airway compromise on exam, continue monitoring. on RA.
- Continue symptomatic care with magic mouthwash
- Dietitian evaluation to check for nutrition goal. Loosing weight ~ 15 lb in last 3 weeks.
2. Chronic hyponatremia
- h/o of polydypsia/euvolemic hyponatremia
- maintain on fluid restriction 40oz
- Na 131 today, continue monitoring
3. Normocytic anemia
- monitor. no bleeding diathesis.
4. MERON
- Cr down to 1.1 post IVF
DVT Ppx - scd
Full code
Total time spent : 53 mins
I personally saw and examined the patient.
I have reviewed all diagnostic interpretations and treatment plans as written.
Time includes patient management by me, time spent at the patients bedside, time to review lab and imaging results, discussing patient care, documentation in the medical record, and time spent with the family or caregiver and discussing care plan
with RN/Consultants.
--- NOTE | 2024-05-27 17:12 | W.PN.ENT ---
Today's Communication
-
May be discharged today
Impression / Plan
-
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
He may be a surgical candidate but this would need to be done at tertiary referral center.
We will expedite apt at [facility].
In the meantime he may be discharged as he is taking adequate PO's
Subjective Data
-
Pt seen and full consult dictated.
Objective Data
-
Vital Signs
Temp Pulse Resp BP Pulse Ox
98.3 F 68 16 124/66 97
05/27/24 11:31 05/27/24 06:00 05/27/24 06:00 05/27/24 06:00 05/27/24 12:06
Intake & Output
05/26/24 05/27/24 05/28/24
06:59 06:59 06:59
Intake:
Oral fluids 240 / 240
Output:
Urine, Voided 150 / 150 225 / 225
Other:
Number of approximated MODERATE 3
amounts of urine
How many times incontinent 3
SATURATED amount urine
Lab Results
05/26/24 17:13
05/27/24 04:40
Calcium 9.5 mg/dl (8.4-10.2) 05/27/24 04:40
Total Bilirubin 1.0 mg/dl (0.2-1.3) 05/26/24 17:13
AST 31 U/L (17-59) 05/26/24 17:13
ALT 17 U/L (0-50) 05/26/24 17:13
Alkaline Phosphatase 64 U/L (38-126) 05/26/24 17:13
Physical Exam
-
Laryngoscopy performed at bedside, c/w base of tongue squamous cell carcinoma but airway is widely patent.
[2024-05-27] MEDS: LOVENOX 40 MG SC (17:44)
[2024-05-27] MEDS: LEVAQUIN 500 MG PO (20:20)
[2024-05-28] MEDS: NSS 1000 IV (01:59)
[2024-05-28 03:05] VITALS: BP 142/70
[2024-05-28 06:47] LABS: Hemoglobin 10.3 g/dL (13.0-18.0); Mean Corp Hgb Conc. 36.8 g/dL (33.0-37.0); Mean Corpuscular Hgb 35.6 pg (27.0-31.0); Mean Corpuscular Volume 96.9 fL (80.0-94.0); Mean Platelet Volume 8.5 fL (7.4-10.4); Platelet Count 339 10^3/uL (130-400); Red Blood Cell Count 2.89 10^6/uL (4.70-6.10); White Blood Cell Count 3.4 10^3/uL (4.8-10.8)
[2024-05-28 07:00] VITALS: BP 136/74
[2024-05-28 07:15] LABS: Blood Urea Nitrogen 8 mg/dl (9-20); Calcium 8.7 mg/dl (8.4-10.2); Carbon Dioxide 24 mmol/L (22-30); Chloride 97 mmol/L (98-107); Estimated Creatinine Clearance 72 ml/min; Glucose 95 mg/dl (70-99); Potassium 4.3 mmol/L (3.5-5.1); Sodium 130 mmol/L (135-145); eGFR > 60.00
[2024-05-28] MEDS: NORVASC 10 MG PO (08:03)
--- NOTE | 2024-05-28 08:54 | W.PN.HOSP.TC ---
Addendum entered and electronically signed by Bennie Schmidt MD 05/28/24 14:38:
I saw and evaluated the patient. I reviewed the resident�s note and agree with findings and plan as documented in the resident�s note.
No new issues overnight. No signs of dyspnea/stridor overnight.
ENT evaluated and recommended patient to be followed due to pain as will require biopsy and general anesthesia with further follow-up for chemotherapy/radiation
Patient agreeable to plan and planning to f/u with [facility] post discharge.
Script provided for magic mouth wash
Original Note:
Today's Communication/Plan
-
Discharge patient if PT feels appropriate
Will follow-up with ENT at [place]
Assessment / Plan
Assessment / Plan
IMPRESSION:
69-year-old male presents for 3 weeks of progressive dysphagia and odontophagia, CT showed a 2.5 cm soft tissue mass of midline vallecula and tongue base
PLAN:
#Dysphagia/odynophagia
- There is a 2.5 cm soft tissue mass at the midline vallecula and tongue base worrisome for malignancy. No obvious abscess on imaging. Currently without stridor and no respiratory difficulty. 14 Ib weight loss.
-Patient was downgraded from IMU to [facility] as there is no impending airway compromise
- Tolerating clear liquids well
-ENT consulted
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 Airway is widely patent
-ENT recommends patient follow-up at [place] and will expedite his appointment
-topical lidocaine mouthwash and pain control
-no stridor or airway compromise, no indication for steroids at this time
-IV fluids discontinued
-PT OT consulted to evaluate for discharge/disposition
#Hyponatremia
- H/O polydipsic hyponatremia with correction on fluid restriction. However has decreased po intake but with mostly electrolyte free fluid intake and a 14 Ib weightloss with mild MERON suggestive of hypovolemia as well.
- urine osmolality and lytes
- free water restriction
-Status post IV fluids, currently holding
#MERON - Suspect hypovolemic
-Resolved
-Creatinine 1.1 this morning
-Status post IV fluids
- holding ARB, consider reinitiation of ARB
#Recurrent UTI
- patient has completed his home course of levaquin 500mg HS on 05/27
DVT PPX - lovenox sq
Diet: Clear liquids
Full Code
Anticipated Discharge: Today
Subjective/Interval History
-
Date of Service: May 28, 2024
ENT evaluated the patient and recommended follow-up at [place]
Patient would like to be discharged and follow-up at [place]
Objective Data
-
Labs:
Laboratory Results
05/28/24
06:04
WBC 3.4 L
Hgb 10.3 L
Hct 28.0 L
Plt Count 339 D
Sodium 130 L
Potassium 4.3
Chloride 97 L
Carbon Dioxide 24
BUN 8 L
Creatinine 0.9
Glucose 95
Calcium 8.7
Vital Signs:
Vital Signs
Temp Pulse Resp BP Pulse Ox
98.1 F 71 18 136/74 97
05/28/24 07:00 05/28/24 07:00 05/28/24 07:00 05/28/24 07:00 05/28/24 07:00
I&O
05/27/24 05/28/24 05/29/24
06:59 06:59 06:59
Intake Total 240 / 240 2099 / 2099
Output Total 150 / 150 225 / 225
Balance 90 / 90 1874 / 1874
Review of Systems
-
History Source: Patient
Constitutional: Reports Weight Loss
EENT: Reports Sore Throat, Mouth Pain and Other (Lymphadenopathy)
Respiratory: Reports No Symptoms
Cardiac: Reports No Symptoms
Abdomen/GI: Reports No Symptoms
Physical Exam
-
General: Well Developed, No Apparent Distress and Conversant
HEENT: Moist Mucous Membranes and Other (Lymphadenopathy, back of throat mass slightly visualized)
Respiratory: Clear to Auscultation
Cardiac: Regular Rhythm and S1/S2
GI: Soft, Nontender, Nondistended and Normal Bowel Sounds
Musculoskeletal: No Edema
Skin: Warm and Dry
Neuro: Awake, Alert, Oriented and AO x 3
Psych: Calm and Intact Judgement/Insight
Data Reviewed
-
Labs: Labs Reviewed by me and Discussed with Physician
--- NOTE | 2024-05-28 10:21 | PTOTSP ---
ORDERS RECEIVED AND CHART REVIEWED. SPOKE WITH PATIENT AT BEDSIDE. PATIENT REPORTS INDEPENDENCE WITH MOBILITY IN THE ROOM, STATES HE HAS NO CONCERNS WITH BEING DISCHARGED TO HOME TODAY AND IS DECLINING THE NEED FOR ACUTE CARE SKILLED P.T. AT THIS
TIME. WILL DISCHARGE FROM P.T. SERVICES.
--- NOTE | 2024-05-28 11:13 | CM ---
Patient seen at bedside with patient . Patient states that he lives with his in a 3 story home. Patient PCP is Dr. Kendrick and he uses the [facility] in [place]. Patient has a ride home and completed IMM, signed form placed on chart.
Patient stated that he has no concerns about bills at this time. CM will continue to follow for discharge planning needs.
Plan; home with no needs at this time.
--- NOTE | 2024-05-28 11:19 | W.DCSUMMARY ---
Discharge Summary
Discharge Data
Date of Admission: 05/26/24
Date of Discharge: 05/28/24
-
Pending Results: No
Hospital Course
Discharging Physician : Brayan Moralez
Disposition : Home
Primary care physician : Dr. Kendrick
Principal Discharge diagnosis : Base of tongue mass
Chronic Discharge diagnosis : Dysphagia, odontophagia, hyponatremia, MERON, UTI
Hospital Course : 68-year-old male presented to the ED with a 4-month history of progressive dysphagia and odontophagia. He says that he experiences a burning like sensation associated with swallowing and difficulty swallowing. He can tolerate
liquids but very few solids. He also endorsed a 14 pound weight loss. Patient was admitted to IMU due to concern for potential airway obstruction. Of note patient also had a current UTI of which she was receiving his last few days of the
Levaquin. Patient received his final dose of Levaquin as inpatient and antibiotics were discontinued at that time. After patient was admitted he was evaluated by speech pathology who did a modified barium swallow. Speech pathology evaluated the
patient and determined that he was not an aspiration risk. ENT evaluated the patient and did a laryngoscopy on him, ENT suspects the mass is squamous cell carcinoma at the base of the tongue. ENT discussed the diagnosis and workup with the patient
and it was decided that the patient would be discharged and follow-up at [place] as he would need a biopsy at [place] to receive treatment there. Patient was agreeable and ENT expedited his appointment with [facility]. Patient was discharged home and will
follow-up with [facility] the ENT for further workup and management of his base of tongue mass.
Important imaging findings :
05/26/2024 CT neck with IV contrast, impressions:
1). There is a 2.5 cm soft tissue mass at the midline vallecula and tongue base worrisome for malignancy.
Endoscopy and/or PET scan is recommended for further evaluation.
2). There is a 1 cm calcification lateral to the right arytenoid cartilage which is of uncertain significance
3). Atherosclerosis.
4). Mild similar changes apices
Procedure findings :
05/27/2024 RF video fluoroscopy swallow exam, findings:
The patient swallowing function was evaluated fluoroscopically and with videotape during the ingestion of several consistencies of barium, in conjunction with the speech pathologist. Brief imaging of the thoracic esophagus demonstrates mild distal
esophageal retention.
Thin liquid barium by spoon: Questionable trace aspiration with recovery to the supraglottic space on one of 2 trials
Thin liquid barium single sip by cup: Upper penetration no airway aspiration
Thin liquid sip by straw: Deep penetration no airway aspiration
[place] consistency, honey consistency and pudding consistency barium by spoon: No penetration or airway aspiration
Solid barium by cookie: No penetration or airway aspiration
Discharge Plan
-
Patient Disposition: Home (Routine Discharge)
Discharge Diagnosis/Procedures: Tongue cancer - squamous cell suspected
Condition: Fair
Diet: Regular
Additional Diets: Increase protein intake
Activity: No restrictions
Driving Restrictions: As prior to admission
Bathing Restrictions: OK to Shower
Referrals:
Kwame Kendrick CRNP [Family Provider] - in one week
Zeeshan Gusman MD [Active] -
Prescriptions:
Continued
amlodipine [Norvasc] 10 mg Tablet
10 mg PO DAILY
alfuzosin 10 mg Tablet Extended Release 24 Hr
10 mg PO NOON
cholecalciferol (vitamin D3) [Vitamin D3] 25 mcg (1,000 unit) Tablet
25 mcg PO DAILY
cyanocobalamin (vitamin B-12) 1,000 mcg Tablet
1,000 mcg PO DAILY
Held
irbesartan 300 mg Tablet
300 mg PO DAILY
Hold Instructions: Resume on 06/02/24.
Discontinued
levofloxacin 500 mg Tablet
500 mg PO HS
naproxen 500 mg Tablet
500 mg PO BIDPRN PRN (Reason: mild pain)
Discharge Orders:
Discharge Patient (As Directed); Ordered 05/28/24
Ordered By: Bennie Schmidt
Discharge Date and Time
Discharge Date/Time: 05/28/24 11:24
Print Language: SWEDISH
== END 2024-05-28 11:24 | disposition home or self-care (01) | DRG 147 ==
LOC: 3 WEST ACU 19:54
PROVIDERS: Emergency Medicine; ADMITTING PHYSICIAN Internal Medicine; ATTENDING PHYSICIAN Hospitalist; CONSULT PHYSICIAN Otolaryngology; EMERGENCY PHYSICIAN Emergency Medicine; FAMILY PHYSICIAN Nurse Practitioner Family
DX: C02.9 Malignant neoplasm of tongue, unspecified (principal); E87.1 Hypo-osmolality and hyponatremia; N39.0 Urinary tract infection, site not specified; N17.9 Acute kidney failure, unspecified; Z87.440 Personal history of urinary (tract) infections; F17.200 Nicotine dependence, unspecified, uncomplicated
CPT/HCPCS: 70491; 74230; 80048; 80053; 83935; 84300; 85025; 85027; 92610; 92611; 99285; Q9967

== ENCOUNTER 2024-06-14 04:49 | Emergency (ER) | payer BC, SELFPAY ==
[2024-06-14 04:51] VITALS: BP 142/71; BMI 22.0
--- NOTE | 2024-06-14 07:13 | ED.GENMED ---
History of Present Illness
General
Chief Complaint: Airway Problem
Source: patient
Time Seen by Provider: 06/14/24 07:04
History of Present Illness
History of Present Illness:
69-year-old male presents from [facility] with complaints of bleeding from recently placed tracheostomy tube. He has a recent diagnosis of tongue cancer was sent down to [facility] for trach tube placement. This was performed.
He was sent to nursing facility afterwards. Nursing facility noticed blood from the tracheostomy and they sent him here. He also noted to the anterior neck. He also felt a pressure. Patient states since being evaluated by respiratory therapy
here he is feeling improved but still has some discomfort. No other complaints at this time
Past History
Past History
ED Past Medical History: Cancer (prostate), HTN and Other (kidney stones)
ED Past Surgical History: Orthopedic and Urological (lithotripsies)
Social History
Tobacco: Smoker
Alcohol: Daily (5 beers)
Drug: None and Marijuana
Personal:
Living: with family
Employment: Employed
Phy Exam
Physical Exam
Physical Exam:
General: Well-developed male no acute respiratory distress
HEENT: Normocephalic atraumatic tracheostomy tube in place.
Heart: Regular rate and rhythm no murmurs
Lungs: Breath sounds throughout
Extremities: No cyanosis
Course
Orders/Labs/Results
Orders:
Orders
06/14/24 07:12
Oxycodone/Acetaminophen [Percocet 5/325] 1 tablet TUBE NOW STA
Vital Signs
Initial and Last Documented VS:
Initial Vital Signs
Temp Pulse Resp BP Pulse Ox
98.4 F 69 16 142/71 98
06/14/24 04:51 06/14/24 04:51 06/14/24 04:51 06/14/24 04:51 06/14/24 04:51
Last Documented Vital Signs
Temp Pulse Resp BP Pulse Ox
98.4 F 69 16 142/71 97
06/14/24 04:51 06/14/24 04:51 06/14/24 04:51 06/14/24 04:51 06/14/24 06:15
MDM/Problems Addressed
Differential Diagnosis Includes:
Patient had bleeding from the tracheostomy tube. He was evaluated by respiratory therapy and the tube was adjusted more padding was placed and he is feeling better. These were expected findings in the immediate timeframe after getting the
tracheostomy tube placed. He was still in some discomfort. Percocet was given through his feeding tube. Anticipate he will be stable for discharge back to his nursing facility
*Critical Care Note
Total Time (30-74mins, 75-104mins- exclusive of procedures): Not Applicable
ED Attending Note
-
Portions of this chart may have been created with voice recognition software.� Occasional wrong word or��sound alike� substitutions may have occurred due to the inherent limitations of voice recognition software.
Discharge Plan
Departure
Patient Disposition: Assisted Living
Date of Disposition: 06/14/24
Time of Disposition: 07:15
Patient with high blood pressure during this ER visit?: No
Discharge Problem:
Hemorrhage from tracheostomy stoma
Prescriptions:
No Action
amlodipine [Norvasc] 10 mg Tablet
10 mg PO DAILY
irbesartan 300 mg Tablet
300 mg PO DAILY
alfuzosin 10 mg Tablet Extended Release 24 Hr
10 mg PO NOON
cholecalciferol (vitamin D3) [Vitamin D3] 25 mcg (1,000 unit) Tablet
25 mcg PO DAILY
cyanocobalamin (vitamin B-12) 1,000 mcg Tablet
1,000 mcg PO DAILY
Referrals:
Rodriguez Tsai MD [Family Provider] -
Activity Restrictions/Additional Instructions:
Please continue current regimen. Return if needed
Interventions
Interventions:
*Risk Screen - Suicide Last Done: 06/14/24 04:51
*General Assessment Last Done: 06/14/24 04:51
*Neglect/Abuse Screening Last Done: 06/14/24 04:51
*ED COVID-19 Vaccine History Last Done: 06/14/24 05:03
ED- Pulmonary Assessment Last Done: 06/14/24 05:03
Discharge Date and Time
Print Language: SERBIAN
[2024-06-14] MEDS: PERCOCET 5/325 1 TABLET TUBE (08:09)
[2024-06-14 09:28] VITALS: BP 141/71
== END 2024-06-14 09:48 ==
LOC: EMR 04:49
PROVIDERS: EMERGENCY PHYSICIAN Student in an Organized Health Care Education/Training Program; FAMILY PHYSICIAN Family Medicine
DX: J95.01 Hemorrhage from tracheostomy stoma (principal); I10 Essential (primary) hypertension; Z85.46 Personal history of malignant neoplasm of prostate; Z87.442 Personal history of urinary calculi; F17.290 Nicotine dependence, other tobacco product, uncomplicated
CPT/HCPCS: 99282

== ENCOUNTER → 2024-07-04 12:00 | Outpatient (REF) | payer BC, SELFPAY | LOC: PET 12:00 | PROVIDERS: ATTENDING PHYSICIAN Radiology Radiation Oncology | DX: C01 Malignant neoplasm of base of tongue (principal) | CPT/HCPCS: 78815; A9552 ==

== ENCOUNTER → 2024-07-24 08:25 | Outpatient (REF) | payer BC, SELFPAY ==
[2024-07-24 09:03] VITALS: BP 143/74; BP_SYST 84
[2024-07-24 09:12] VITALS: BMI 21.1
[2024-07-24] MEDS: VANCOCIN 200 IV (09:30)
[2024-07-24 10:45] VITALS: BP 139/71; BP_SYST 86
== END ==
LOC: RADI 08:25
PROVIDERS: ATTENDING PHYSICIAN Internal Medicine Hematology & Oncology; FAMILY PHYSICIAN Nurse Practitioner Family
DX: C76.0 Malignant neoplasm of head, face and neck (principal)
CPT/HCPCS: 36561; 76937; 77001; 99152; 99153; C1788

== ENCOUNTER 2024-08-19 02:24 | Emergency (ER) | payer BC, SELFPAY ==
[2024-08-19 02:26] VITALS: BP 109/71
--- NOTE | 2024-08-19 03:34 | ED.GENMED ---
History of Present Illness
General
Chief Complaint: Catheter/Tube Problem
Source: patient and spouse
Exam Limitations: none
Time Seen by Provider: 08/19/24 03:12
History of Present Illness
History of Present Illness:
Patient has history of squamous cell oropharyngeal cancer and as such has a tracheostomy as well as G-tube in place. G-tube placed at [facility] early May.
Patient presents tonight after noticing a hole in distal end of one port of G-tube. The tubing and port itself are intact but he noticed a hole in the/cover that inserts into the end of the G-tube.
His feeding tube has 2 enteral ports. The additional port has been functioning appropriately.
He denies abdominal pain, no nausea or vomiting. He has not had a fever.
Past History
Past History
ED Past Medical History: Cancer (prostate, squamous cell oropharyngeal cancer), HTN and Other (kidney stones)
ED Past Surgical History: Orthopedic and Urological (lithotripsies)
Social History
Tobacco: Former smoker
Alcohol: Daily (5 beers)
Drug: Marijuana
Personal:
Living: with family
Employment: Employed
Family History
Family History: Other (Noncontributory)
Phy Exam
Physical Exam
Physical Exam:
GENERAL: 69-year-old gentleman appears somewhat older than stated age, bright and alert, pleasant, appears in no acute distress. is accompanying.
EYE: pupils equal and reactive. anicteric
NECK: Tracheostomy in place.
ENT: oral mucosa is moist.
CARDIAC: Regular rate and rhythm. no murmur.
LUNGS: Clear breath sounds bilaterally, no acute respiratory distress, no wheezes/rales/rhonchi
ABDOMEN: Soft, nondistended, without focal tenderness. G-tube left upper quadrant, site is clean and dry. G-tube has a balloon port as well as 2 feeding ports. Both feeding ports have capped and's, 1 of which has a puncture in the center of the
cap. There is scant clear fluid intermittently leaking from this puncture at center of the. There is no leaking from the the G-tube itself.
NEUROLOGICAL: Alert and oriented x3, no focal neuro deficits. Gait is steady.
SKIN: Warm and dry, normal color, skin intact. No rash.
MUSCULOSKELETAL: No C/C/E. peripheral pulses are full and equal b/l. No palpable tenderness.
PSYCH: Normal and appropriate interaction.
Course
Vital Signs
Initial and Last Documented VS:
Initial Vital Signs
Temp Pulse Resp BP Pulse Ox
98.5 F 94 18 109/71 98
08/19/24 02:08/19/24 02:08/19/24 02:08/19/24 02:26 08/19/24 02:26
Last Documented Vital Signs
Temp Pulse Resp BP Pulse Ox
98.5 F 94 18 109/71 98
08/19/24 02:26 08/19/24 02:26 08/19/24 02:08/19/24 02:08/19/24 02:26
MDM/Problems Addressed
Differential Diagnosis Includes:
Patient presents with malfunction of G-tube, has discovered a hole in the port cover. Port cover has been replaced with a rubber plug.
Both enteral ports of G-tube are functioning appropriately without leakage.
G-tube site is clean and dry.
Abdomen is soft and nontender.
At this point no indication to change the G-tube, patient is satisfied with rubber plug for the end of his G-tube.
Recommend he follow-up with his oncologist, Dr. Galvan for further evaluation. G-tube may need to be replaced in the future and can be scheduled as an outpatient procedure.
Return precautions discussed.
Chronic conditions affecting care: Cancer
*Pulse Oximetry
Patient hypoxic: no
*Critical Care Note
Total Time (30-74mins, 75-104mins- exclusive of procedures): Not Applicable
ED Attending Note
-
Portions of this chart may have been created with voice recognition software.� Occasional wrong word or��sound alike� substitutions may have occurred due to the inherent limitations of voice recognition software.
Discharge Plan
Departure
Patient Disposition: Home (Routine Discharge)
Date of Disposition: 08/19/24
Time of Disposition: 03:34
Patient with high blood pressure during this ER visit?: No
Condition: Good
Discharge Problem:
Complaint associated with gastric tube
Instructions: How to Care for Your Gastrostomy Tube
Prescriptions:
No Action
amlodipine [Norvasc] 10 mg Tablet
10 mg PO DAILY
irbesartan 300 mg Tablet
300 mg PO DAILY
cholecalciferol (vitamin D3) [Vitamin D3] 25 mcg (1,000 unit) Tablet
25 mcg PO DAILY
cyanocobalamin (vitamin B-12) 1,000 mcg Tablet
1,000 mcg PO DAILY
ondansetron HCl [Zofran] 8 mg Tablet
8 mg PO Q8H PRN (Reason: nausea)
oxycodone 5 mg/5 mL Solution
5 mg PO Q4H PRN (Reason: pain)
lorazepam [Ativan] 0.5 mg Tablet
0.25 mg PO Q6-12H PRN (Reason: anxiety)
acetaminophen [Tylenol] 325 mg Capsule
650 mg feeding tube Q6H PRN (Reason: pain)
glycopyrrolate 1 mg/5 mL (0.2 mg/mL) Solution
1 mg feeding tube Q8 PRN (Reason: saliva)
scopolamine base 1 mg over 3 days Patch 3 Day
1 patch TRANSDERMAL Q3D
alfuzosin 10 mg Tablet Extended Release 24 Hr
10 mg PO DAILY PRN (Reason: bph)
Referrals:
Jayden Galvan, DO [Active] - Call in 1-3 days for appt
Interventions
Interventions:
*Risk Screen - Suicide Last Done: 08/19/24 02:26
*General Assessment Last Done: 08/19/24 02:26
*Neglect/Abuse Screening Last Done: 08/19/24 02:26
*ED COVID-19 Vaccine History Last Done: 08/19/24 02:26
Discharge Date and Time
Discharge Date/Time: 08/19/24 03:55
Print Language: FRISIAN
== END 2024-08-19 03:55 | disposition home or self-care (01) ==
LOC: EMR 02:24
PROVIDERS: EMERGENCY PHYSICIAN Emergency Medicine; FAMILY PHYSICIAN Nurse Practitioner Family
DX: Z43.1 Encounter for attention to gastrostomy (principal); C10.9 Malignant neoplasm of oropharynx, unspecified; I10 Essential (primary) hypertension; Z87.891 Personal history of nicotine dependence
CPT/HCPCS: 99282

== ENCOUNTER 2024-08-22 07:36 | Outpatient (RCR) | payer BC, SELFPAY ==
[2024-07-25 09:03] VITALS: BP 122/63
[2024-07-25 09:04] LABS: % Basophils 0.1 % (0-2); % Eosinophils 0.1 % (0-6); % Immature Granulocytes 0.9 % (0-0.5); % Lymphocytes 3.6 % (20.5-51.1); % Monocytes 6.5 % (1.7-9.3); % Neutrophils 88.8 % (42.2-75.2); Absolute Immature Granulocytes 0.1 10^3/uL (0-0.05); Absolute Lymphocytes 0.4 10^3/uL (1.2-3.4); Absolute Monocytes 0.7 10^3/uL (0.1-0.6); Absolute Neutrophils 9.4 10^3/uL (1.4-6.5); Hematocrit 23.7 % (39.0-52.0); Hemoglobin 8.2 g/dL (13.0-18.0); Mean Corp Hgb Conc. 34.6 g/dL (33.0-37.0); Mean Corpuscular Hgb 33.6 pg (27.0-31.0); Mean Corpuscular Volume 97.1 fL (80.0-94.0); Mean Platelet Volume 8.5 fL (7.4-10.4); Nucleated Red Blood Cells % 0 % (-); Platelet Count 533 10^3/uL (130-400); Red Blood Cell Count 2.44 10^6/uL (4.70-6.10); Red Cell Dist. Width 13.5 % (11.5-14.5); White Blood Cell Count 10.6 10^3/uL (4.8-10.8)
[2024-07-25 09:17] LABS: ALT (SGPT) 24 U/L (0-50); AST (SGOT) 30 U/L (17-59); Albumin 3.8 g/dl (3.5-5.0); Alkaline Phosphatase 86 U/L (38-126); Blood Urea Nitrogen 47 mg/dl (9-20); Calcium 8.9 mg/dl (8.4-10.2); Carbon Dioxide 29 mmol/L (22-30); Chloride 94 mmol/L (98-107); Glucose 159 mg/dl (70-99); Potassium 3.8 mmol/L (3.5-5.1); Sodium 135 mmol/L (135-145); Total Bilirubin 0.4 mg/dl (0.2-1.3); Total Protein 6.7 g/dl (6.3-8.2); eGFR > 60.00
[2024-07-25] MEDS: NSS 1000 IV ×2 (10:26→12:33)
[2024-07-25] MEDS: EMEND 150 MG IV (10:27)
[2024-07-25 10:44] LABS: Iron 50 ug/dl (49-181)
[2024-07-25 10:49] VITALS: BMI 21.1
[2024-07-25 10:54] LABS: Percent Saturation 21 % (20-50); Total Iron Binding Capacity 237 ug/dl (261-462)
[2024-07-25] MEDS: DECADRON 52 MG IV (11:04)
[2024-07-25] MEDS: ALOXI 5 MG IV (11:04)
[2024-07-25] MEDS: LASIX 20 MG IV (12:24)
[2024-07-25] MEDS: CISPLATIN 321 MG IV (12:28)
[2024-07-25 12:49] LABS: Vitamin B12 900 pg/ml (239-931)
--- NOTE | 2024-07-25 15:35 | PTCARENOTE ---
Pt tolerated first chemotherapy well. 2500ml IV intake Output 1900ml clear yellow urine output. Side effects and management of chemotherapy discussed with patient ans spouse. Pt has good understanding. Pt given written discharge instructions. Pt
communicated understanding need to increase fluids via PEG tube, and will have spouse call for any concerns.
[2024-08-01 08:00] VITALS: BP 137/65; BMI 23.9
[2024-08-01 08:26] LABS: % Basophils 0.2 % (0-2); % Eosinophils 0.7 % (0-6); % Immature Granulocytes 1.1 % (0-0.5); % Lymphocytes 4.3 % (20.5-51.1); % Monocytes 6.5 % (1.7-9.3); % Neutrophils 87.2 % (42.2-75.2); Absolute Eosinophils 0.1 10^3/uL (0-0.7); Absolute Immature Granulocytes 0.2 10^3/uL (0-0.05); Absolute Lymphocytes 0.7 10^3/uL (1.2-3.4); Absolute Neutrophils 13.2 10^3/uL (1.4-6.5); Hematocrit 21.8 % (39.0-52.0); Hemoglobin 7.6 g/dL (13.0-18.0); Mean Corp Hgb Conc. 34.9 g/dL (33.0-37.0); Mean Corpuscular Hgb 32.9 pg (27.0-31.0); Mean Corpuscular Volume 94.4 fL (80.0-94.0); Mean Platelet Volume 8.5 fL (7.4-10.4); Nucleated Red Blood Cells % 0 % (-); Platelet Count 529 10^3/uL (130-400); Red Blood Cell Count 2.31 10^6/uL (4.70-6.10); Red Cell Dist. Width 13.9 % (11.5-14.5); White Blood Cell Count 15.2 10^3/uL (4.8-10.8)
[2024-08-01 08:37] LABS: ALT (SGPT) 24 U/L (0-50); AST (SGOT) 24 U/L (17-59); Albumin 3.6 g/dl (3.5-5.0); Alkaline Phosphatase 110 U/L (38-126); Blood Urea Nitrogen 43 mg/dl (9-20); Calcium 8.9 mg/dl (8.4-10.2); Carbon Dioxide 31 mmol/L (22-30); Chloride 91 mmol/L (98-107); Estimated Creatinine Clearance 77 ml/min; Glucose 99 mg/dl (70-99); Potassium 4.3 mmol/L (3.5-5.1); Sodium 132 mmol/L (135-145); Total Bilirubin 0.3 mg/dl (0.2-1.3); Total Protein 6.3 g/dl (6.3-8.2); eGFR > 60.00
--- NOTE | 2024-08-01 08:50 | PTCARENOTE ---
Pt's labs back hgb: 7.6, hct: 21.8, TT Vandana [facility], stating pt needs blood transfusion. When telling patient plan of care, pt stating 'I do not want any blood products, I will call the office with my .' Relayed message to MERCHANDISING ASSISTANT and she
wants pt and to come to office after treatment today. Pt again is not agreeable and will call the office. Pt offers no complaints, resting comfortable in chair. Urinating without difficulty, has gone multiple times since this morning.
[2024-08-01] MEDS: NSS 1000 IV ×2 (09:05→11:14)
[2024-08-01] MEDS: EMEND 150 MG IV (09:16)
[2024-08-01] MEDS: ALOXI 5 MG IV (09:52)
[2024-08-01] MEDS: DECADRON 52 MG IV (09:53)
[2024-08-01] MEDS: LASIX 20 MG IV (11:06)
[2024-08-01] MEDS: CISPLATIN 321 MG IV (11:13)
[2024-08-01 13:11] VITALS: BP 147/67
--- NOTE | 2024-08-01 13:37 | PTCARENOTE ---
pt had over 2500ml of urine output noted throughout treatment.
[2024-08-05 14:37] LABS: % Basophils 0.1 % (0-2); % Eosinophils 0.1 % (0-6); % Immature Granulocytes 0.5 % (0-0.5); % Lymphocytes 4.1 % (20.5-51.1); % Monocytes 7.6 % (1.7-9.3); % Neutrophils 87.6 % (42.2-75.2); Absolute Immature Granulocytes 0.1 10^3/uL (0-0.05); Absolute Lymphocytes 0.5 10^3/uL (1.2-3.4); Absolute Monocytes 0.9 10^3/uL (0.1-0.6); Absolute Neutrophils 10.6 10^3/uL (1.4-6.5); Hemoglobin 8.2 g/dL (13.0-18.0); Mean Corp Hgb Conc. 34.2 g/dL (33.0-37.0); Mean Corpuscular Hgb 33.2 pg (27.0-31.0); Mean Corpuscular Volume 97.2 fL (80.0-94.0); Mean Platelet Volume 8.1 fL (7.4-10.4); Platelet Count 508 10^3/uL (130-400); Red Blood Cell Count 2.47 10^6/uL (4.70-6.10); White Blood Cell Count 12.1 10^3/uL (4.8-10.8)
[2024-08-05 16:02] LABS: Blood Urea Nitrogen 43 mg/dl (9-20); Carbon Dioxide 31 mmol/L (22-30); Chloride 90 mmol/L (98-107); Estimated Creatinine Clearance 77 ml/min; Glucose 85 mg/dl (70-99); Magnesium 1.7 mg/dl (1.6-2.3); Potassium 3.9 mmol/L (3.5-5.1); Sodium 134 mmol/L (135-145); eGFR > 60.00
[2024-08-08 09:08] VITALS: BP 91/67
[2024-08-08 09:21] LABS: Blood Urea Nitrogen 39 mg/dl (9-20); Calcium 8.6 mg/dl (8.4-10.2); Carbon Dioxide 35 mmol/L (22-30); Chloride 89 mmol/L (98-107); Estimated Creatinine Clearance 88 ml/min; Glucose 133 mg/dl (70-99); Magnesium 1.6 mg/dl (1.6-2.3); Potassium 3.6 mmol/L (3.5-5.1); Sodium 133 mmol/L (135-145); eGFR > 60.00
[2024-08-08 09:27] LABS: % Basophils 0.2 % (0-2); % Eosinophils 0.2 % (0-6); % Immature Granulocytes 0.5 % (0-0.5); % Lymphocytes 1.9 % (20.5-51.1); % Monocytes 5.6 % (1.7-9.3); % Neutrophils 91.6 % (42.2-75.2); Absolute Immature Granulocytes 0.1 10^3/uL (0-0.05); Absolute Lymphocytes 0.2 10^3/uL (1.2-3.4); Absolute Monocytes 0.6 10^3/uL (0.1-0.6); Absolute Neutrophils 9.3 10^3/uL (1.4-6.5); Hemoglobin 7.4 g/dL (13.0-18.0); Mean Corp Hgb Conc. 35.2 g/dL (33.0-37.0); Mean Corpuscular Hgb 33.8 pg (27.0-31.0); Mean Corpuscular Volume 95.9 fL (80.0-94.0); Mean Platelet Volume 8.6 fL (7.4-10.4); Nucleated Red Blood Cells % 0 % (-); Platelet Count 421 10^3/uL (130-400); Red Blood Cell Count 2.19 10^6/uL (4.70-6.10); Red Cell Dist. Width 14.1 % (11.5-14.5); White Blood Cell Count 10.2 10^3/uL (4.8-10.8)
[2024-08-08] MEDS: NSS 1000 IV ×2 (10:30→12:32)
[2024-08-08] MEDS: EMEND 150 MG IV (10:34)
[2024-08-08] MEDS: DECADRON 52 MG IV (11:10)
[2024-08-08] MEDS: ALOXI 5 MG IV (11:10)
[2024-08-08 11:28] VITALS: BMI 20.1
[2024-08-08] MEDS: CISPLATIN 321 MG IV (12:31)
[2024-08-08] MEDS: LASIX 20 MG IV (12:33)
--- NOTE | 2024-08-08 13:55 | SURV.CONR ---
Survivorship Consultation
- -
Met with patient today specifically to discuss blood transfusions and obtain consent. At time of meeting was very frustrated that he was having to wait for chemotherapy and hydration. Advised on rationale for the visit. Was unable to discuss
survivorship and resources available. Will plan to meet with patient again at next visit to discuss further. Will be available as needed in the future. Blood consent obtained and will be scheduled for blood transfusion sunday.
[2024-08-08 14:00] VITALS: BP 113/57
--- NOTE | 2024-08-08 16:17 | PTCARENOTE ---
1400-Pt agitated, insisting on leaving before completion of therapy. All pre hydration , premeds and cisplatin infused. Pt received 360ml of post hydration. Urine output is adequate, 1300ml clear yellow urine plus voided without measurement x one.
[facility] at [facility] Services notified via tiger text. Pt is to return on 08/11/24 for transfusion of PRBC. Pt is agreeable to that. Pt discharged in good condition, written instructions provided.
[2024-08-11 08:34] VITALS: BP 99/56
[2024-08-11 08:52] VITALS: BP 90/52
[2024-08-11 10:46] VITALS: BP 105/53
[2024-08-14 08:35] LABS: % Basophils 0.3 % (0-2); % Eosinophils 0.3 % (0-6); % Immature Granulocytes 0.5 % (0-0.5); % Monocytes 9.9 % (1.7-9.3); Absolute Lymphocytes 0.4 10^3/uL (1.2-3.4); Absolute Monocytes 0.7 10^3/uL (0.1-0.6); Absolute Neutrophils 5.5 10^3/uL (1.4-6.5); Mean Corpuscular Hgb 32.6 pg (27.0-31.0); Mean Corpuscular Volume 95.8 fL (80.0-94.0); Mean Platelet Volume 8.2 fL (7.4-10.4); Platelet Count 311 10^3/uL (130-400); Red Blood Cell Count 3.13 10^6/uL (4.70-6.10); Red Cell Dist. Width 15.5 % (11.5-14.5); White Blood Cell Count 6.6 10^3/uL (4.8-10.8)
[2024-08-14 08:37] LABS: Hemoglobin 10.2 g/dL (13.0-18.0)
[2024-08-14 09:10] LABS: Blood Urea Nitrogen 42 mg/dl (9-20); Calcium 8.8 mg/dl (8.4-10.2); Carbon Dioxide 34 mmol/L (22-30); Chloride 87 mmol/L (98-107); Estimated Creatinine Clearance 76 ml/min; Glucose 116 mg/dl (70-99); Magnesium 1.4 mg/dl (1.6-2.3); Potassium 3.7 mmol/L (3.5-5.1); Sodium 134 mmol/L (135-145); eGFR > 60.00
[2024-08-15 08:40] VITALS: BMI 19.9
[2024-08-15 08:41] VITALS: BP 95/52
[2024-08-15] MEDS: MAGNESIUM SULFATE 1004 GRAMS IV (08:46)
[2024-08-15] MEDS: EMEND 150 MG IV (08:46)
[2024-08-15] MEDS: ALOXI 5 MG IV (09:26)
[2024-08-15] MEDS: DECADRON 52 MG IV (09:26)
[2024-08-15] MEDS: LASIX 20 MG IV (10:41)
[2024-08-15] MEDS: NSS 1000 IV (10:43)
[2024-08-15] MEDS: CISPLATIN 321 MG IV (11:09)
[2024-08-15 13:15] VITALS: BP 100/55
--- NOTE | 2024-08-15 14:41 | PTCARENOTE ---
Addendum entered by Zohra Gray RN 08/15/24 14:46:
0800-Magnesium level 1.4 resulted to [facility] via tiger text. Pt received magnesium 2 grams IV as ordered.
Original Note:
Pt tolerated chemotherapy treatment well, excellent blood return noted through out infusion. Total urine output 100ml clear yellow urine. Pt to have follow up with [facility] at [facility] today. Pt discharged in good condition accompanied by
spouse.
[2024-08-20 08:08] LABS: % Basophils 0.2 % (0-2); % Eosinophils 0.4 % (0-6); % Immature Granulocytes 0.6 % (0-0.5); % Lymphocytes 5.6 % (20.5-51.1); % Monocytes 8.8 % (1.7-9.3); % Neutrophils 84.4 % (42.2-75.2); Absolute Lymphocytes 0.3 10^3/uL (1.2-3.4); Absolute Monocytes 0.5 10^3/uL (0.1-0.6); Absolute Neutrophils 4.4 10^3/uL (1.4-6.5); Hematocrit 25.9 % (39.0-52.0); Hemoglobin 8.9 g/dL (13.0-18.0); Mean Corp Hgb Conc. 34.4 g/dL (33.0-37.0); Mean Corpuscular Hgb 33.1 pg (27.0-31.0); Mean Corpuscular Volume 96.3 fL (80.0-94.0); Mean Platelet Volume 8.8 fL (7.4-10.4); Platelet Count 203 10^3/uL (130-400); Red Blood Cell Count 2.69 10^6/uL (4.70-6.10); Red Cell Dist. Width 15.6 % (11.5-14.5); White Blood Cell Count 5.2 10^3/uL (4.8-10.8)
[2024-08-20 10:43] LABS: Blood Urea Nitrogen 52 mg/dl (9-20); Calcium 8.5 mg/dl (8.4-10.2); Carbon Dioxide 35 mmol/L (22-30); Chloride 87 mmol/L (98-107); Estimated Creatinine Clearance 60 ml/min; Glucose 103 mg/dl (70-99); Magnesium 1.4 mg/dl (1.6-2.3); Sodium 134 mmol/L (135-145); eGFR > 60.00
[2024-08-22 07:45] VITALS: BP 135/61
[2024-08-22] MEDS: MAGNESIUM SULFATE 1004 GRAMS IV (08:03)
[2024-08-22] MEDS: EMEND 150 MG IV (08:30)
[2024-08-22] MEDS: ALOXI 5 MG IV (09:04)
[2024-08-22] MEDS: DECADRON 52 MG IV (09:04)
[2024-08-22] MEDS: LASIX 20 MG IV (10:19)
[2024-08-22] MEDS: CISPLATIN 321 MG IV (10:24)
[2024-08-22] MEDS: NSS IV (10:26)
[2024-08-22] MEDS: NSS 1000 IV (11:46)
[2024-08-22 11:49] VITALS: BP 101/48
== END 2024-08-23 23:59 | disposition home or self-care (01) ==
LOC: OID 07:36
PROVIDERS: ATTENDING PHYSICIAN Internal Medicine Hematology & Oncology; FAMILY PHYSICIAN Nurse Practitioner Family
DX: C01 Malignant neoplasm of base of tongue (principal); C44.92 Squamous cell carcinoma of skin, unspecified (principal); Z51.11 Encounter for antineoplastic chemotherapy (principal); C79.89 Secondary malignant neoplasm of other specified sites; Z87.891 Personal history of nicotine dependence; Z85.818 Personal history of malignant neoplasm of other sites of lip, oral cavity, and pharynx; Z86.59 Personal history of other mental and behavioral disorders
CPT/HCPCS: 96361; 36415; 36430; 80048; 80053; 82607; 82728; 82746; 83540; 83550; 83735; 85025; 86850; 86900; 86901; 86920; 96360; 96367; 96375; 96413; J1453; J2469; J9060; P9016

== ENCOUNTER 2024-08-28 04:42 | Inpatient (IN) | payer BC, MEDICARE, SELFPAY ==
[2024-08-28] VITALS (17 sets, daily range): BP systolic 109–141; BP diastolic 54–76; BMI 19.2; BMI 17.9
--- NOTE | 2024-08-28 01:12 | ED.GENMED ---
History of Present Illness
General
Chief Complaint: Chest Problem
Source: patient
Exam Limitations: none
Time Seen by Provider: 08/28/24 00:25
History of Present Illness
History of Present Illness:
This is a 69 year old male that comes in with c/o right sided rib/abd pain. States that this started a few hours ago. However, states that the PCP wanted a chest x-ray. Patient states that he has been SOB and has a cough. states that he
has lost so much weight. States that he is nauseated. Denies any fever, chills, chest pain, vomiting, diarrhea, headache, dizziness, urinary burning. Denies any falls or injury.
Past History
Past History
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 Sleep apnea, Anemia, )
ED Past Surgical History: Orthopedic (Bilateral total hip replacements), Urological (lithotripsies, TURP) and Other (Trach, Peg tube)
Social History
Tobacco: Former smoker
Alcohol: None
Personal:
Living: with family
Family History
Family History: Other (Noncontributory)
Review of Systems
Review of Systems
All Other Systems: ROS reviewed and negative except as documented in HPI and ROS
Constitutional: Reports no symptoms; Denies fever or chills
EENT: Reports no symptoms
Respiratory: Reports cough and trouble breathing
Cardiac: Denies chest pain
ABD/GI: Reports abdominal pain and nausea; Denies vomiting or diarrhea
: Reports no symptoms; Denies dysuria, frequency or urgency
Musculoskeletal: Reports no symptoms
Skin: Reports no symptoms
Neurological: Reports no symptoms; Denies dizzy or headache
Psychiatric: Reports no symptoms
Phy Exam
General Physical Exam
General Presentation: no apparent distress
General age: appears stated age
General Skin: warm and dry
General Habitus: debilitated and elderly
General Mental: alert
General Hydration: appears well hydrated
ENT Exam
ENT Exam: TM's normal, tracheostomy and other (Tongue is in large with small sore on the tip. )
Eye Exam
Eye Exam: EOMI
Cardiovascular Exam
Cardiovascular Exam: regular rate/rhythm, no edema and normal peripheral pulses
Pulmonary Exam
Pulmonary Exam: no respiratory distress, no rales, chest non tender, no crackles, no rhonchi, no wheezing, decreased breath sounds and other (Dry cough noted)
Gastrointestinal Exam
Gastrointestinal Exam: normal bowel sounds, non tender, soft, no organomegaly, no pulsatile mass, non distended and other (Stool brown very slightly hem positive )
External Findings: gastrostomy tube
Musculoskeletal Exam
Musculoskeletal Exam: full ROM and no edema
Skin Exam
Skin Exam: normal color, warm/dry, no rash and no petechia
Psychiatric Exam
Psychiatric Exam: normal mood/affect
Course
Orders/Labs/Results
Orders:
Orders
08/28/24 00:40
EKG [Electrocardiogram (*1)] Urgent
Reason for Study: Chest Pain
EKG- Treatment ONCE
08/28/24 00:57
Complete Blood Count/With Diff Urgent
Comprehensive Metabolic Panel Urgent
Lipase Urgent
Comment: ADD ON
Troponin I Urgent
08/28/24 01:11
CT Chest Pe Study Urgent
Comment: history of Tongue cancer
Reason For Exam: Right lower chest, rib are pain. SOB, COugh
US Abdomen Complete/Upper Urgent
Comment:
Reason For Exam: Right upper abd pain
08/28/24 01:12
Add On- LAB Urgent
Tests Added?: Lipase
08/28/24 01:14
Ondansetron Injectable [Zofran] 4 mg IV NOW STA
08/28/24 01:24
Oxycodone [Roxicodone Oral Solution] 5 mg PO NOW STA
08/28/24 02:01
Type And Crossmatch [Type+Screen] Urgent
08/28/24 02:16
* Blood Bank Products Urgent
Blood Bank Products: *Packed RBC Leuko(PRBC's)
Quantity: 2
Transfuse Today: Yes
Reason: Anemia
IV Insert/Care/Rem.- Treatment PRN
Abnormal Lab Results
08/28/24
00:57
WBC 1.5 L* 10^3/uL
(4.8-10.8)
RBC 1.98 L 10^6/uL
(4.70-6.10)
Hgb 6.3 L* g/dL
(13.0-18.0)
Hct 18.8 L* %
(39.0-52.0)
MCV 94.9 H fL
(80.0-94.0)
MCH 31.8 H pg
(27.0-31.0)
RDW 16.0 H %
(11.5-14.5)
Plt Count 93 L 10^3/uL
(130-400)
Absolute Neuts (auto) 1.1 L 10^3/uL
(1.4-6.5)
Absolute Lymphs (auto) 0.2 L 10^3/uL
(1.2-3.4)
Immature Gran % 0.7 H %
(0-0.5)
Neutrophils % 76.5 H %
(42.2-75.2)
Lymphocytes % 15.4 L %
(20.5-51.1)
Sodium 131 L mmol/L
(135-145)
Potassium 3.1 L mmol/L
(3.5-5.1)
Chloride 89 L mmol/L
(98-107)
Carbon Dioxide 33 H mmol/L
(22-30)
BUN 33 H mg/dl
(9-20)
Creatinine 0.6 L mg/dL
(0.7-1.3)
Glucose 106 H mg/dl
(70-99)
Calcium 7.5 L mg/dl
(8.4-10.2)
Total Protein 5.7 L g/dl
(6.3-8.2)
Albumin 3.3 L g/dl
(3.5-5.0)
08/28/24 00:57
08/28/24 00:57
Pancytopenia. H/H very low, Anemia, Hyponatremia, hypokalemia, Hypochloremia, Carbon dioxide slightly elevated. Dehydration. Glucose nonfasting. Hypocalcemia, Total protein low. Albumin low.
Vital Signs
Initial and Last Documented VS:
Initial Vital Signs
Temp Pulse Resp BP Pulse Ox
97.7 F 78 18 119/68 100
08/28/24 00:03 08/28/24 00:03 08/28/24 00:03 08/28/24 00:03 08/28/24 00:03
Last Documented Vital Signs
Temp Pulse Resp BP Pulse Ox
97.7 F 59 12 119/68 100
08/28/24 00:03 08/28/24 01:30 08/28/24 01:30 08/28/24 00:03 08/28/24 01:30
MDM/Problems Addressed
Differential Diagnosis Includes:
PE, Gallbladder disease, Mets to ribs
MDM/Problems Addressed:
This is a 69 year old male that comes in with c/o pain in the right lower rib/ right upper Quadrant pain. Patient states that this started a couple of hours ago. states that the PCP wanted him to get a chest x-ray as he had been SOB and had a
cough.
Will get labs, CT chest and ultrasound abd. Will medicate for pain. Offered Zofran for his nausea but patient refused.
Back into see patient and . Explained that his Hgb is very low. Patient potassium is slightly low with Dehydration and low Calcium. Rectal exam done and stool was brown and very slightly hem positive. Blood consent signed. Explained to patient
that he would be admitted and given Blood .
Told by Ultrasound that the Images would not go through to vision, but there was no gallstones seen.
Chronic conditions affecting care: Cancer
Acute Exacerbation and/or Progression of Chronic Illness: Cancer
*Radiology
Radiology exam reviewed: radiology read reviewed (CT chest-Left lower lobe posterior peribronchovascular irregular opacities may reflect infectious procss oe aspiration. Emphysema with diffuse bronchial wall thickening. Indeterminate peripheral
nodular opacity in the lingula measuring approximately 1.2X1.9X2.0cm for which follow-up is advise 1.2), all reviewed NAD by ED Provider (CT cont- Technically adequate study. No pulmnary embolism. No artic dissection. Scattered atheromatous
disease. 2.0cm dense calcifiation central spleen. Indeterminate acute fracture of the upper sternum, possibly subacute. No retrosternal hematoma or edema to suggest acute trauma. Degenerative ) and other (CT con- degenerative changes of the spine)
*Pulse Oximetry
Patient hypoxic: no
*EKG
Interpreted by ED Provider?: Yes
Heart Rate: 59
Rate: bradycardiac
Rhythm: sinus
[place]: normal axis
Interval: normal interval
QRS Pattern: normal QRS
Ischemia: no ischemia
*[employer] Interpretation
Rate: normal
Heart Rate: 62
Rhythm: sinus
*Critical Care Note
Total Time (30-74mins, 75-104mins- exclusive of procedures): Not Applicable
ED Attending Note
-
Portions of this chart may have been created with voice recognition software.� Occasional wrong word or��sound alike� substitutions may have occurred due to the inherent limitations of voice recognition software.
Discharge Plan
Departure
Patient Disposition: Admit
Date of Disposition: 08/28/24
Time of Disposition: 03:02
Admit to: Med/Surg
Presentation/result/management discussed w/ accepting MD/DO: Hospitalist
Patient with high blood pressure during this ER visit?: No
Condition: Good
Covid-19: Not Applicable
Discharge Problem:
Pancytopenia, Low hemoglobin
Prescriptions:
No Action
cholecalciferol (vitamin D3) [Vitamin D3] 25 mcg (1,000 unit) Tablet
25 mcg PO DAILY
cyanocobalamin (vitamin B-12) 1,000 mcg Tablet
1,000 mcg PO DAILY
ondansetron HCl [Zofran] 8 mg Tablet
8 mg PO Q8H PRN (Reason: nausea)
oxycodone 5 mg/5 mL Solution
5 mg PO Q4H PRN (Reason: pain)
lorazepam [Ativan] 0.5 mg Tablet
0.25 mg PO Q6-12H PRN (Reason: anxiety)
acetaminophen [Tylenol] 325 mg Capsule
650 mg feeding tube Q6H PRN (Reason: pain)
glycopyrrolate 1 mg/5 mL (0.2 mg/mL) Solution
1 mg feeding tube Q8 PRN (Reason: saliva)
scopolamine base 1 mg over 3 days Patch 3 Day
1 patch TRANSDERMAL Q3D
Referrals:
Kwame Kendrick CRNP [Family Provider] -
Interventions
Interventions:
*Risk Screen - Suicide Last Done: 08/28/24 00:03
*General Assessment Last Done: 08/28/24 00:03
*Neglect/Abuse Screening Last Done: 08/28/24 00:03
ED- Fall Risk Assessment Last Done: 08/28/24 00:03
*ED COVID-19 Vaccine History Last Done: 08/28/24 00:03
ED- Cardiac Assessment Last Done: 08/28/24 00:54
ED- Pulmonary Assessment Last Done: 08/28/24 00:54
Discharge Date and Time
Print Language: MACEDONIAN
[2024-08-28 01:28] LABS: % Eosinophils 0.7 % (0-6); % Immature Granulocytes 0.7 % (0-0.5); % Lymphocytes 15.4 % (20.5-51.1); % Monocytes 6.7 % (1.7-9.3); % Neutrophils 76.5 % (42.2-75.2); Absolute Lymphocytes 0.2 10^3/uL (1.2-3.4); Absolute Monocytes 0.1 10^3/uL (0.1-0.6); Absolute Neutrophils 1.1 10^3/uL (1.4-6.5); Hematocrit 18.8 % (39.0-52.0); Hemoglobin 6.3 g/dL (13.0-18.0); Mean Corp Hgb Conc. 33.5 g/dL (33.0-37.0); Mean Corpuscular Hgb 31.8 pg (27.0-31.0); Mean Corpuscular Volume 94.9 fL (80.0-94.0); Nucleated Red Blood Cells % 0 % (-); Red Blood Cell Count 1.98 10^6/uL (4.70-6.10); White Blood Cell Count 1.5 10^3/uL (4.8-10.8)
[2024-08-28 01:29] LABS: ALT (SGPT) 22 U/L (0-50); AST (SGOT) 20 U/L (17-59); Albumin 3.3 g/dl (3.5-5.0); Alkaline Phosphatase 92 U/L (38-126); Blood Urea Nitrogen 33 mg/dl (9-20); Calcium 7.5 mg/dl (8.4-10.2); Carbon Dioxide 33 mmol/L (22-30); Chloride 89 mmol/L (98-107); Estimated Creatinine Clearance 100 ml/min; Glucose 106 mg/dl (70-99); Lipase 251 U/L (23-300); Potassium 3.1 mmol/L (3.5-5.1); Sodium 131 mmol/L (135-145); Total Bilirubin 0.3 mg/dl (0.2-1.3); Total Protein 5.7 g/dl (6.3-8.2); eGFR > 60.00
[2024-08-28 01:40] LABS: Troponin I < 0.012 ng/ml
[2024-08-28 02:02] LABS: Mean Platelet Volume 8.8 fL (7.4-10.4); Platelet Count 93 10^3/uL (130-400)
[2024-08-28 02:12] LABS: Anisocytosis 1+; Normal RBC Morphology No
[2024-08-28 02:14] LABS: Acanthocytes Occasional; Hypochromasia OCC; Ovalocytes Occasional; Tear Drop Red Blood Cells Occasional
[2024-08-28] MEDS: ROXICODONE ORAL SOLUTION 5 MG PO (02:17)
--- NOTE | 2024-08-28 04:32 | HPS.HSE ---
Family Physician
-
Family Physician: NEMO Chauhan
Chief Complaint
-
R Chest Pain, SOB, Cough
History of Present Illness
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 History obtained from patient and at the
bedside. Patient started on chemo / XRT about 6 weeks ago. His most recent chemo session was 08/22. Patient has been losing weight and becoming weaker, unsteady on his feet, etc over the past few weeks.
He has had hacking cough and has difficulty managing his secretions. He is SOB with activity.
He denies any substernal chest pain, fevers / chills, emesis / diarrhea or urinary complaints.
He has a G-tube for nutrition, but he does not administer the recommended amount of feeding. states that he is prescribed 7 cans daily and he typically takes 1-3.
He notes some mild nausea and poor appetite in general.
notes that he has lost 30 lbs over the past 2 months.
Patient complained today of pain located at the costochondral margin anteriorly on the R lower ribs. No radiation of this pain. Pain is worse with coughing / deep breathing.
Medical History
Past Medical History
Past Medical History: Reports Other
Additional Past Medical History:
Squamous Cell Cancer of the Head and Neck
Prostate Cancer s/p XRT and Lupron
Hypertension (no longer on medications)
Past Surgical History: Reports Other
Additional Past Surgical History:
Bilateral DARION
Tracheostomy
G-Tube Placement
Social History
Tobacco: Former Smoker
Alcohol: Former
Personal:
Living: With Family
Family History
Family History: Not pertinent
Allergies / Home Medications
Allergies reflects when Allergies were last updated in [facility].
Home Medications with original date entered in [facility]
Allergy/Medication List:
Allergies
Allergy/AdvReac Type Severity Reaction Status Date / Time
bee venom protein (honey bee) Allergy Severe Anaphylaxis Verified 08/28/24 00:03
Penicillins Allergy Rash Verified 08/28/24 00:03
Home Medications
cholecalciferol (vitamin D3) 25 mcg (1,000 unit) tablet (Vitamin D3) 25 mcg PO DAILY Supplement 05/01/23
cyanocobalamin (vitamin B-12) 1,000 mcg tablet 1,000 mcg PO DAILY Supplement 05/26/24
acetaminophen 325 mg capsule (Tylenol) 650 mg feeding tube Q6H PRN pain 07/25/24
glycopyrrolate 1 mg/5 mL (0.2 mg/mL) oral solution 1 mg feeding tube Q8 PRN saliva 07/25/24
lorazepam 0.5 mg tablet (Ativan) 0.25 mg PO Q6-12H PRN anxiety 07/25/24
ondansetron HCl 8 mg tablet 8 mg PO Q8H PRN nausea 07/25/24
oxycodone 5 mg/5 mL oral solution 5 mg PO Q4H PRN pain 07/25/24
scopolamine base 1 mg over 3 days transdermal patch 1 patch transdermal Q3D 08/15/24
Review of Systems
-
History Source: Patient and Family
A 12 point ROS was completed and negative except as noted: Yes
Constitutional: Reports Weight Loss and Fatigue; Denies Fever or Chills
EENT: Reports Sore Throat
Respiratory: Reports Cough and Trouble Breathing; Denies Hemoptysis
Cardiac: Reports Chest Pain; Denies Diaphoresis, Palpitations or Syncope
Abdomen/GI: Reports Nausea and Anorexia; Denies Abdominal Pain, Vomiting, Diarrhea, Constipated, Bloody Stools or Black Stools
: Denies Dysuria or Frequency
Musculoskeletal: Denies Edema
Neurological: Denies Dizzy or Headache
Psych: Denies Depression or Anxiety
Physical Exam
Vital Signs
Vital Signs
Temp Pulse Resp BP Pulse Ox
98.1 F 56 18 119/66 99
08/28/24 04:25 08/28/24 04:25 08/28/24 04:25 08/28/24 04:25 08/28/24 04:25
Physical Exam
General: Other (Chronically ill-appearing 69y M in no acute distress.)
HEENT: Other (Tracheostomy in place with passy jason valve. No bleeding / discharge. Marked edema of the distal tongue with eschar / ulceration at the tip.)
Respiratory: Other (Coarse breath sounds at the R > L bases. Ineffectual cough. No wheezing.)
Cardiac: S1/S2 and Regular Rhythm; No Murmur
GI: Soft, Non Tender, Non Distended, Normal Bowel Sounds and Other (G-tube in place without bleeding or discharge.)
Musculoskeletal: No Clubbing, No Cyanosis, No Edema and Other (Pinpoint tenderness over the costochondral angle anterior R lower ribs. No overlying skin lesions.)
Neuro: Awake, Alert and Oriented
Laboratory Results
-
08/28/24 00:57
08/28/24 00:57
Laboratory Results
Total Bilirubin 0.3 mg/dl (0.2-1.3) 08/28/24 00:57
AST 20 U/L (17-59) 08/28/24 00:57
ALT 22 U/L (0-50) 08/28/24 00:57
Alkaline Phosphatase 92 U/L (38-126) 08/28/24 00:57
Troponin I < 0.012 ng/ml 08/28/24 00:57
Lipase 251 U/L (23-300) 08/28/24 00:57
Impression/Plan
-
A/P: Patient is a 69y M with PMH significant for head and neck cancer currently on chemo and XRT who presents to ED complaining of R chest pain, weight loss, fatigue, etc.
Pancytopenia
- Admit for further evaluation and treatment.
- Patient had relatively new anemia 1-2 weeks ago (7.4 g/dL) and required transfusion at that time.
- Has not had neutropenia / thrombocytopenia in the past.
- ? progressive effect of chemo.
- Transfusion ordered in the ED.
- Follow cell counts and monitor for any evidence of bleeding.
- Reportedly 'trace heme positive' stool in the ED. Formally heme test stool to confirm.
- Heme / Onc evaluation for additional recommendations.
Hyponatremia - Chronic
Mild Hypokalemia
Azotemia
- IVFs / replace electrolytes.
- Follow labs for improvement.
Aspiration Pneumonia / Pneumonitis
- CT scan shows lower lung changes concerning for aspiration / pneumonitis.
- Certainly at risk for this with head and neck cancer / tongue swelling / problems tolerating secretions.
- IV abx for now.
- Aspiration precautions.
- Continue to use G-tube for nutrition / meds.
- Continue scopolamine / glycopyrrolate for secretion management.
Severe Protein-Calorie Malnutrition
- 30 lbs weight loss over the past few months.
- Patient is not taking in prescribed amount of nutrition via G-tube.
- Dietary evaluation.
- Encourage administration of adequate nutrition. Patient / family education.
Squamous Cell Cancer of the Head and Neck
- Started on cisplatin and XRT regimen about 5-6 weeks ago.
- Marked tongue edema and distal ulceration noted on exam.
- Heme / Onc eval as noted above.
- Consider ENT eval if new or worsening symptoms.
Prostate Cancer s/p XRT
- Bladder scan protocol.
DVT Prophylaxis: SCDs
Code Status: DNR
[2024-08-28 05:10] LABS: COVID-19 Antigen Negative (Negative)
--- NOTE | 2024-08-28 08:30 | VNURNOTE ---
Chart reviewed. [facility] nursing, PT, [employer]. Will continue to follow hospital course and DC plans.
[2024-08-28] MEDS: LR 1000 IV (08:38)
[2024-08-28] MEDS: ROXICODONE ORAL SOLUTION 5 MG TUBE ×3 (08:40→21:10)
[2024-08-28] MEDS: ROCEPHIN 1000 MG IV (08:42)
[2024-08-28] MEDS: PROTONIX IV IV ×2 (08:42→12:21)
[2024-08-28] MEDS: NSS (PRESERVATIVE FREE) 10 ML IV (08:42)
[2024-08-28] MEDS: STERILE WATER FOR INJECTION 10 ML IV (08:43)
[2024-08-28] MEDS: FLUSH (NSS) 1 FLUSH IV ×2 (08:45→08:46)
[2024-08-28] MEDS: VIBRAMYCIN 260 MG IV ×2 (08:48→20:18)
--- NOTE | 2024-08-28 09:13 | CON.ONC ---
Impression
Impression
tongue�stage�III�squamous�cell�ca, �p16�negative, currently�receiving�Cisplatin�with�concurrent�XRT, last cisplatin 08/22
hyponatremia
pancytopenia
malnutrition on TF
chronic aspiration
pain
suspected PNA
Plan
Plan
neutropenic precautions, avoid GCSF while undergoing XRT
transfuse Hgb <7 or as needed for sxs anemia
avoid nsaids, antiplatelet, anticoagulation if platelets <50,000
monitor for bleeding, heme stool pending
chemotherapy will remain on hold until cytopenias improve
PT/OT/nutrition to optimize PS/nutrition
symptoms support with antiemetics, analgesia, secretions
daily CBC, BMP, magnesium
Patient History
History of Present Illness
69yo M known to Dr. Galvan for management of squamous cell cancer of the head and neck currently receiving chemo and XRT who presents to ED complaining of right lower chest discomfort, cough, and SOB. Initial evaluation notable for WBC 1.5, Hgb
6.3, Hct 18.8, platelet count 93,000, ANC 1100, Na 131, potassium 3.1, with normal renal function and LFTs. CTA chest showed no PE, however, did show emphysema, possible PNA, 1.9 x 1.2 cm masslike opacity in the lingula has increased in size,
sternal fracture, possible fracture R 3rd & 4th rib. He is influenza and COVID negative. He was admitted, transfused 1U prbc, started on ceftriaxone/doxycycline, and IV hydromorphone.
Clinically, he reports cancer pain for which he is taking oxycodone IR prn, lidocaine swish prn, and Lyrica. He is using Glycopyrrolate and scopolamine patch for management of secretions. He takes Ativan prn anxiety with some relief. He has
significant weight loss. He has been using TF for all nutrition and medication but not tolerating recommended 7 cans/day, rather only using 1-3 cans/day.
Afebrile, no hypotension, 5L trach color
Pt able to communicate by written communication, supplemental history obtained by at bedside
Past-Medical/Surgical History
PMH Hypertension� History�of�prostate�carcinoma�treated�with�ADT�radiation�therapy
PSH b/l DARION, Tracheotomy, G�tube
Social�History Former�Smoker. Denies�any�illicit�drug�use. Former ETOH. Lives with .
Family denies malignancy
Patient Medication
�Medication �Instructions �Recorded �Confirmed �Last Taken �Type
cholecalciferol (vitamin D3) 25 25 mcg PO DAILY Supplement 05/01/23 08/28/24 07/23/24 History
mcg (1,000 unit) tablet (Vitamin
D3)
cyanocobalamin (vitamin B-12) 1,000 mcg PO DAILY Supplement 05/26/24 08/28/24 08/22/24 History
1,000 mcg tablet
acetaminophen 325 mg capsule 650 mg feeding tube Q6H PRN pain 07/25/24 08/28/24 08/22/24 History
(Tylenol)
glycopyrrolate 1 mg/5 mL (0.2 1 mg feeding tube Q8 PRN saliva 07/25/24 08/28/24 08/22/24 History
mg/mL) oral solution
lorazepam 0.5 mg tablet (Ativan) 0.25 mg PO Q6-12H PRN anxiety 07/25/24 08/28/24 08/22/24 History
ondansetron HCl 8 mg tablet 8 mg PO Q8H PRN nausea 07/25/24 08/28/24 Unknown History
oxycodone 5 mg/5 mL oral solution 5 mg PO Q4H PRN pain 07/25/24 08/28/24 08/21/24 History
scopolamine base 1 mg over 3 days 1 patch transdermal Q3D 08/15/24 08/28/24 08/22/24 History
transdermal patch
Active Medications
Generic Name Dose Route Start Last Admin
Trade Name Freq PRN Reason Stop Dose Admin
Acetaminophen 650 mg 08/28/24 06:58
Acetaminophen 325 Mg Tablet TUBE 09/25/24 06:57
Q4HPRN PRN
Mild Pain / Temp > 101
Albuterol Sulfate 2.5 mg 08/28/24 06:58
Albuterol Nebs 2.5 Mg/3 Ml Ampul INH
R Q4HPRN PRN
SOB
Protocol
Ceftriaxone Sodium 1,000 mg 08/28/24 08:00 08/28/24 08:42
Ceftriaxone 1000 Mg / 10 Ml Vial IV 1,000 mg
Q24H EDUARDO Administration
Glycopyrrolate 1 mg 08/28/24 08:00
Glycopyrrolate 1 Mg Tablet TUBE 09/25/24 07:59
Q8 PRN
saliva
Hydromorphone HCl 0.5 mg 08/28/24 06:58
Hydromorphone 0.5 Mg/0.5 Ml Syringe IV 09/11/24 06:57
Q4HPRN PRN
Severe Pain
Doxycycline Hyclate 100 mg/ 260 mls @ 260 mls/hr 08/28/24 08:00 08/28/24 08:48
Sodium Chloride IV 260 mls
Q12H EDUARDO Administration
Lactated Ringer's 1,000 mls @ 125 mls/hr 08/28/24 06:58 08/28/24 08:38
Lr IV 1,000 mls
.Q8H EDUARDO Administration
Potassium Chloride 40 meq/ 270 mls @ 67.5 mls/hr 08/28/24 08:42
Sodium Chloride IV 08/28/24 12:41
NOW STA
Lorazepam 0.25 mg 08/28/24 06:58
Lorazepam 0.5 Mg Tablet TUBE 09/25/24 06:57
Q6HPRN PRN
anxiety
Ondansetron HCl 4 mg 08/28/24 08:00
Ondansetron 4 Mg/2 Ml Vial IV 09/25/24 07:59
Q6HPRN PRN
nausea and vomiting
Oxycodone HCl 5 mg 08/28/24 06:58 08/28/24 08:40
Oxycodone Oral Solution (5 Mg/5 Ml) Cup TUBE 09/11/24 06:57 5 mg
Q4H PRN Administration
pain
Pantoprazole Sodium 40 mg 08/28/24 08:00 08/28/24 08:42
Pantoprazole Sodium 40 Mg/10 Ml Vial IV 09/25/24 07:59 40 mg
DAILY EDUARDO Administration
Scopolamine HBr 1 patch 08/31/24 08:00
Scopolamine Patch (1 Mg/3 Days) TRANSDERM 09/28/24 07:59
Q3D EDUARDO
Sodium Chloride 0 flush 08/28/24 05:00
Sodium Chloride 0.9% (Flush) Syringe IV 09/25/24 04:59
PER PROTOCOL EDUARDO
Sodium Chloride 0 flush 08/28/24 08:00 08/28/24 08:46
0.9% Nacl Flush If Lactated Ringers Ivf Ordered IV 09/25/24 07:59 1 flush
BID@0800,0805 EDUARDO Administration
Sodium Chloride 10 ml 08/28/24 08:00 08/28/24 08:42
Sodium Chloride 0.9% (Preservative Free) 10 Ml Vial IV 09/25/24 07:59 10 ml
DAILY EDUARDO Administration
Sterile Water 10 ml 08/28/24 08:00 08/28/24 08:43
Sterile Water For Injection 10 Ml Vial IV 09/25/24 07:59 10 ml
Q24H EDUARDO Administration
Review of Systems
-
Review of systems notable for HPI, otherwise negative
Physical Exam
-
General: Appears Chronically Ill
HEENT: Moist Mucous Membranes and Other (tongue protruberent); Negative Jaundice
Cardiology: Normal Sinus Rhythm
Pulmonary: Clear
GI: Soft and Other (feeding tube)
Extremities: Pulses Present; Negative Edema
Skin: Warm
Psych: Calm
Labs
Lab Results
WBC 1.5 10^3/uL (4.8-10.8) L* 08/28/24 00:57
RBC 1.98 10^6/uL (4.70-6.10) L 08/28/24 00:57
Hgb 6.3 g/dL (13.0-18.0) L* 08/28/24 00:57
Hct 18.8 % (39.0-52.0) L* 08/28/24 00:57
MCV 94.9 fL (80.0-94.0) H 08/28/24 00:57
MCH 31.8 pg (27.0-31.0) H 08/28/24 00:57
MCHC 33.5 g/dL (33.0-37.0) 08/28/24 00:57
RDW 16.0 % (11.5-14.5) H 08/28/24 00:57
Plt Count 93 10^3/uL (130-400) L 08/28/24 00:57
MPV 8.8 fL (7.4-10.4) 08/28/24 00:57
Abs Immat Gran (auto) 0.0 10^3/uL (0-0.05) 08/28/24 00:57
Absolute Neuts (auto) 1.1 10^3/uL (1.4-6.5) L 08/28/24 00:57
Absolute Lymphs (auto) 0.2 10^3/uL (1.2-3.4) L 08/28/24 00:57
Absolute Monos (auto) 0.1 10^3/uL (0.1-0.6) 08/28/24 00:57
Absolute Eos (auto) 0.0 10^3/uL (0-0.7) 08/28/24 00:57
Absolute Basos (auto) 0.0 10^3/uL (0-0.2) 08/28/24 00:57
Immature Gran % 0.7 % (0-0.5) H 08/28/24 00:57
Neutrophils % 76.5 % (42.2-75.2) H 08/28/24 00:57
Lymphocytes % 15.4 % (20.5-51.1) L 08/28/24 00:57
Monocytes % 6.7 % (1.7-9.3) 08/28/24 00:57
Eosinophils % 0.7 % (0-6) 08/28/24 00:57
Basophils % 0.0 % (0-2) 08/28/24 00:57
Creatinine 0.6 mg/dL (0.7-1.3) L 08/28/24 00:57
Vital Signs
Vital Signs
Temp Pulse Resp BP Pulse Ox
98.4 F 58 18 125/65 97
08/28/24 07:30 08/28/24 07:30 08/28/24 07:30 08/28/24 07:30 08/28/24 07:52
[2024-08-28] MEDS: KCL 270 MEQ IV (09:18)
--- NOTE | 2024-08-28 12:25 | W.PN.UPDATE ---
Update Note
Progress Note Update
Seen and examined independent of overnight physician. Remains on trach collar. Awaiting for dietary eval for tube feeding. Per discussion with patient's spouse patient had a mechanical fall and was able to pick himself up. Patient was receiving
speech therapy at home.
General: Appears chronically ill, cachectic
HEENT: Other (Tracheostomy in place with passy jason valve. No bleeding / discharge. Marked edema of the distal tongue with eschar / ulceration at the tip.)
Respiratory: Trach collar noted. Coarse breath sounds.
Cardiac: S1/S2 and Regular Rhythm; No Murmur
GI: Soft, Non Tender, Non Distended, Normal Bowel Sounds and Other (G-tube in place without bleeding or discharge.)
Musculoskeletal: No Clubbing, No Cyanosis, No Edema and Other (Pinpoint tenderness over the costochondral angle anterior R lower ribs. No overlying skin lesions.)
Neuro: Awake, Alert and Oriented
A/P: Patient is a 69y M with PMH significant for head and neck cancer currently on chemo and XRT who presents to ED complaining of R chest pain, weight loss, fatigue, etc.
Pancytopenia
- Patient had relatively new anemia 1-2 weeks ago (7.4 g/dL) and required transfusion at that time.
- Has not had neutropenia / thrombocytopenia in the past.
- ? progressive effect of chemo.
- Transfusion ordered in the ED.
- Follow cell counts and monitor for any evidence of bleeding.
- Reportedly 'trace heme positive' stool in the ED. Formally heme test stool to confirm.
- Heme / Onc evaluation for additional recommendations.
Hyponatremia - Chronic
Mild Hypokalemia
Azotemia
- IVFs / replace electrolytes.
- Follow labs for improvement.
Aspiration Pneumonia / Pneumonitis
- CT scan shows lower lung changes concerning for aspiration / pneumonitis.
- Certainly at risk for this with head and neck cancer / tongue swelling / problems tolerating secretions.
- IV abx for now.
- Aspiration precautions.
- Continue to use G-tube for nutrition / meds.
- Continue scopolamine / glycopyrrolate for secretion management.
Severe Protein-Calorie Malnutrition of chronic illness
- 30 lbs weight loss over the past few months.
- Patient is not taking in prescribed amount of nutrition via G-tube.
- Dietary evaluation.
- Encourage administration of adequate nutrition. Patient / family education.
Squamous Cell Cancer of the Head and Neck
- Started on cisplatin and XRT regimen about 5-6 weeks ago.
- Marked tongue edema and distal ulceration noted on exam.
- Heme / Onc eval as noted above.
-Per spouse patient was drinking water at home. Also was getting speech/tongue therapy
- Consider ENT eval if new or worsening symptoms.
Prostate Cancer s/p XRT
- Bladder scan protocol.
Sternum fracture secondary to mechanical fall
-Pain control
DVT Prophylaxis: SCDs
Code Status: DNR
Discussed with patient spouse over the phone in detail.
PT/OT
[2024-08-28] MEDS: ROBINUL 1 MG TUBE (13:30)
--- NOTE | 2024-08-28 15:00 | PTCARENOTE ---
RN and respiratory therapist attempted suction and care of tracheostomy tube. Pt did not tolerate, pushing RN and RT away. Education on trach care given. pt refused despite teaching.
--- NOTE | 2024-08-28 15:02 | CM ---
Reviewed chart, met with patient and his who was at bedside to obtain information for assessment. Patient's stated that patient lives with her in a single two story home with a basement and one step to enter. She described him as in need
of supervision for ADLs, personal care, dressing, bathing and toileting. He uses a walker to assist with ambulation. He is able to do some light chores, however, his does the cooking, cleaning and laundry. She still works during the day,
however, she stated that patient is doing alright during the day and she is home with him in the evenings when he does his bathing and personal care. Patient has a PEG and is NPO. He is on Jevity 1.5. He also has a suction.
Patient is current with [facility]. His wants resumption.
He has been to SNF at [facility].
Patient has a prescription plan and uses, [facility] in [place] for all of his medications.
Patient's PCP is, Kwame Scott.
Patient's stated that she would like for patient to return home when medically cleared with [facility] services.
Plan: Case management will continue to follow and assist with discharge planning. Home with resumption of [facility].
[2024-08-28 15:11] LABS: TSH Reflex To Free T4 0.61 uIU/ml (0.47-4.68)
[2024-08-28] MEDS: VITAMIN B-12 1000 MCG TUBE (16:00)
[2024-08-28] MEDS: DELTASONE 10 MG TUBE (16:00)
--- NOTE | 2024-08-28 16:00 | PTCARENOTE ---
Pt removed trach collar. Refusing to continue O2. sating 98% on RA
--- NOTE | 2024-08-28 16:34 | PTOTSP ---
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
Patient with at least moderate dysarthria secondary to known tongue cancer. Patient tolerating Passy [place] Speaking Valve and able to don/doff to assist with communication. Please follow written precautions posted in room.
Patient refused swallowing evaluation. Attempt at another date.
[2024-08-28 18:24] LABS: Hematocrit 24.5 % (39.0-52.0); Hemoglobin 8.5 g/dL (13.0-18.0)
[2024-08-29] VITALS (8 sets, daily range): BP systolic 121–148; BP diastolic 63–76; PULSE 56–57; O2SAT 98–99; BMI 19.4
[2024-08-29] MEDS: LR 1000 IV (02:04)
[2024-08-29] MEDS: ROXICODONE ORAL SOLUTION 5 MG TUBE ×3 (06:00→20:15)
[2024-08-29 06:09] LABS: Hematocrit 26.4 % (39.0-52.0); Mean Corp Hgb Conc. 34.1 g/dL (33.0-37.0); Mean Corpuscular Hgb 30.7 pg (27.0-31.0); Mean Corpuscular Volume 90.1 fL (80.0-94.0); Mean Platelet Volume 9.2 fL (7.4-10.4); Platelet Count 88 10^3/uL (130-400); Red Blood Cell Count 2.93 10^6/uL (4.70-6.10); Red Cell Dist. Width 17.1 % (11.5-14.5); White Blood Cell Count 1.9 10^3/uL (4.8-10.8)
[2024-08-29 06:17] LABS: Blood Urea Nitrogen 17 mg/dl (9-20); Calcium 7.5 mg/dl (8.4-10.2); Carbon Dioxide 26 mmol/L (22-30); Chloride 95 mmol/L (98-107); Estimated Creatinine Clearance 93 ml/min; Glucose 94 mg/dl (70-99); Phosphorus 2.8 mg/dl (2.5-4.5); Potassium 3.3 mmol/L (3.5-5.1); Sodium 130 mmol/L (135-145); eGFR > 60.00
--- NOTE | 2024-08-29 07:03 | PTCARENOTE ---
Patient requested TF rate to stay at 40 mL/hr. Patient allowed suctioning, inner cannula to be changed, and neck ties changed. Plan of care ongoing.
[2024-08-29] MEDS: VITAMIN D3 (cholecalciferol) 25 MCG TUBE (08:09)
[2024-08-29] MEDS: VITAMIN B-12 1000 MCG TUBE (08:09)
[2024-08-29] MEDS: DELTASONE 10 MG TUBE (08:09)
[2024-08-29] MEDS: ROCEPHIN 1000 MG IV (08:09)
[2024-08-29] MEDS: PROTONIX IV IV ×2 (08:10→08:27)
[2024-08-29] MEDS: FLUSH (NSS) 10 FLUSH IV (08:10)
[2024-08-29] MEDS: NSS (PRESERVATIVE FREE) IV ×2 (08:10→08:27)
[2024-08-29] MEDS: STERILE WATER FOR INJECTION 10 ML IV (08:10)
[2024-08-29] MEDS: VIBRAMYCIN 260 MG IV ×2 (08:11→20:01)
[2024-08-29] MEDS: KCL ELIXIR 40 MEQ TUBE (08:29)
[2024-08-29] MEDS: ROBINUL 1 MG TUBE ×3 (08:34→20:25)
[2024-08-29] MEDS: MAGNESIUM SULFATE 100 IV (08:34)
[2024-08-29] MEDS: FLUSH (NSS) 1 FLUSH IV (08:52)
[2024-08-29 10:53] LABS: % Basophils 0.5 % (0-2); % Eosinophils 0.5 % (0-6); % Immature Granulocytes 0.5 % (0-0.5); % Lymphocytes 11.2 % (20.5-51.1); % Neutrophils 79.3 % (42.2-75.2); Absolute Lymphocytes 0.2 10^3/uL (1.2-3.4); Absolute Monocytes 0.2 10^3/uL (0.1-0.6); Absolute Neutrophils 1.5 10^3/uL (1.4-6.5); Nucleated Red Blood Cells % 0 % (-)
--- NOTE | 2024-08-29 12:01 | W.PN.HOSP.TC ---
Today's Communication/Plan
-
Replete electrolytes
DC fluid
Continue with tube feeding
Trend CBC
Continue with antibiotic
Assessment / Plan
Assessment / Plan
General: Appears chronically ill, cachectic
HEENT: Other (Tracheostomy in place with passy jason valve. No bleeding / discharge. Marked edema of the distal tongue with eschar / ulceration at the tip.)
Respiratory: Trach collar noted. Coarse breath sounds.
Cardiac: S1/S2 and Regular Rhythm; No Murmur
GI: Soft, Non Tender, Non Distended, Normal Bowel Sounds and Other (G-tube in place without bleeding or discharge.)
Musculoskeletal: No Clubbing, No Cyanosis, No Edema and Other (Pinpoint tenderness over the costochondral angle anterior R lower ribs. No overlying skin lesions.)
Neuro: Awake, Alert and Oriented
A/P: Patient is a 69y M with PMH significant for head and neck cancer currently on chemo and XRT who presents to ED complaining of R chest pain, weight loss, fatigue, etc.
Pancytopenia likely secondary to chemotherapy
- Patient had relatively new anemia 1-2 weeks ago (7.4 g/dL) and required transfusion at that time.
- Has not had neutropenia / thrombocytopenia in the past.
- Follow cell counts and monitor for any evidence of bleeding.
-Hemoglobin at 9 status post 2 units of PRBC.
- Reportedly 'trace heme positive' stool in the ED. Formally heme test stool to confirm.
- Heme / Onc evaluation for additional recommendations.
Hyponatremia - Chronic
Mild Hypokalemia
Hypomagnesemia
Azotemia
- replete lytes
- Follow labs for improvement. DC further fluids.
Aspiration Pneumonia / Pneumonitis
- CT scan shows lower lung changes concerning for aspiration / pneumonitis.
- Certainly at risk for this with head and neck cancer / tongue swelling / problems tolerating secretions.
- IV abx for now.
- Aspiration precautions.
- Continue to use G-tube for nutrition / meds.
- Continue scopolamine / glycopyrrolate for secretion management.
Severe Protein-Calorie Malnutrition of chronic illness
- 30 lbs weight loss over the past few months.
- Patient is not taking in prescribed amount of nutrition via G-tube.
- Dietary evaluation. Started on tube feeding.
- Encourage administration of adequate nutrition. Patient / family education.
Squamous Cell Cancer of the Head and Neck
- Started on cisplatin and XRT regimen about 5-6 weeks ago. Will plan to hold until improvement in cell line.
- Marked tongue edema and distal ulceration noted on exam.
- Heme / Onc eval as noted above.
- Per spouse patient was drinking water at home. Also was getting speech/tongue therapy
- Refusing speech evaluation
Prostate Cancer s/p XRT
- Bladder scan protocol.
Sternum fracture secondary to mechanical fall
-Pain control
Resting bradycardia asymptomatic
-No pausea noted on tele
-With activity/exertion HR to 80s.
DVT Prophylaxis: SCDs due to severe thrombocytopenia
Code Status: DNR
PT/OT-Home. VN?
Anticipated Discharge: > 48 hours
Subjective/Interval History
-
Date of Service: August 29, 2024
Tolerating tube feeds
Patient sinus bradycardia had breast however with exertion heart rate of 20s to 80s
Worked with physical therapy and ambulating
Objective Data
-
Labs:
Laboratory Results
08/29/24
05:46
WBC 1.9 L*
Hgb 9.0 L
Hct 26.4 L
Plt Count 88 L
Sodium 130 L
Potassium 3.3 L
Chloride 95 L
Carbon Dioxide 26
BUN 17
Creatinine 0.5 L
Glucose 94
Calcium 7.5 L
Vital Signs:
Vital Signs
Temp Pulse Resp BP Pulse Ox
97.8 F 88 17 135/65 96
08/29/24 11:00 08/29/24 11:00 08/29/24 11:00 08/29/24 11:00 08/29/24 11:00
I&O
08/28/24 08/29/24 08/30/24
06:59 06:59 06:59
Intake Total 0 / 0 500 / 500
Output Total 300 / 300 825 / 825
Balance 0 / 0 200 / 200 -825 / -825
Data Reviewed
-
Total Time Spent with Patient (in minutes): 53
[2024-08-29] MEDS: TRANSDERM-SCOP 1 PATCH TRANSDERM (14:39)
--- NOTE | 2024-08-29 14:39 | W.PN.ONC ---
Today's Communication / Plan
-
Hb improved post transfusion
pt feeling better - cont supportive care
Impression
Impression
tongue�stage�III�squamous�cell�ca, �p16�negative, currently�receiving�Cisplatin�with�concurrent�XRT, last cisplatin 08/22
hyponatremia
pancytopenia
malnutrition on TF
chronic aspiration
pain
suspected PNA
Plan
Plan
neutropenic precautions, avoid GCSF while undergoing XRT
Hb improved post transfusion
follow CBC
chemotherapy will remain on hold until cytopenias improve
PT/OT/nutrition to optimize PS/nutrition
symptoms support with antiemetics, analgesia, secretions
Subjective/Objective
Subjective/Objective
Feeling better, no fevers, no SOB
Vital Signs:
Vital Signs
Temp Pulse Resp BP Pulse Ox
97.8 F 88 17 135/65 96
08/29/24 11:00 08/29/24 11:00 08/29/24 11:00 08/29/24 11:00 08/29/24 11:00
Lab Results:
Laboratory Data
WBC 1.9 10^3/uL (4.8-10.8) L* 08/29/24 05:46
Hgb 9.0 g/dL (13.0-18.0) L 08/29/24 05:46
Plt Count 88 10^3/uL (130-400) L 08/29/24 05:46
eGFR > 60.00 08/29/24 05:46
Exam: unchanged
[2024-08-30 03:15] VITALS: BP 132/71
[2024-08-30] MEDS: ROXICODONE ORAL SOLUTION 5 MG TUBE ×4 (05:25→22:06)
[2024-08-30] MEDS: ROBINUL 1 MG TUBE ×4 (05:26→23:02)
[2024-08-30 06:00] VITALS: BMI 19.3
[2024-08-30 07:00] VITALS: BP 122/69
[2024-08-30 07:20] LABS: Hematocrit 27.4 % (39.0-52.0); Hemoglobin 9.7 g/dL (13.0-18.0); Mean Corp Hgb Conc. 35.4 g/dL (33.0-37.0); Mean Corpuscular Hgb 31.9 pg (27.0-31.0); Mean Corpuscular Volume 90.1 fL (80.0-94.0); Mean Platelet Volume 9.4 fL (7.4-10.4); Platelet Count 90 10^3/uL (130-400); Red Blood Cell Count 3.04 10^6/uL (4.70-6.10); Red Cell Dist. Width 16.6 % (11.5-14.5); White Blood Cell Count 1.7 10^3/uL (4.8-10.8)
[2024-08-30 07:39] LABS: Blood Urea Nitrogen 16 mg/dl (9-20); Calcium 7.9 mg/dl (8.4-10.2); Carbon Dioxide 23 mmol/L (22-30); Chloride 96 mmol/L (98-107); Estimated Creatinine Clearance 100 ml/min; Glucose 118 mg/dl (70-99); Magnesium 1.4 mg/dl (1.6-2.3); Potassium 3.2 mmol/L (3.5-5.1); Sodium 130 mmol/L (135-145); eGFR > 60.00
[2024-08-30 07:41] LABS: Vitamin D, 25-OH*** 33.7 ng/mL (30-80)
[2024-08-30] MEDS: MAGNESIUM SULFATE 100 IV (09:09)
[2024-08-30] MEDS: VIBRAMYCIN 260 MG IV ×2 (09:18→19:38)
[2024-08-30] MEDS: DELTASONE 10 MG TUBE (09:24)
[2024-08-30] MEDS: FLUSH (NSS) 1 FLUSH IV ×2 (09:24→09:29)
[2024-08-30] MEDS: VITAMIN D3 (cholecalciferol) 125 MCG TUBE (09:24)
[2024-08-30] MEDS: NSS (PRESERVATIVE FREE) 10 ML IV (09:25)
[2024-08-30] MEDS: PROTONIX IV 40 MG IV (09:25)
[2024-08-30] MEDS: ROCEPHIN 1000 MG IV (09:25)
[2024-08-30] MEDS: STERILE WATER FOR INJECTION 10 ML IV (09:25)
[2024-08-30] MEDS: VITAMIN B-12 1000 MCG TUBE (09:30)
[2024-08-30 09:34] LABS: Osmolality Serum 266 mOsm/kg (275-300)
[2024-08-30] MEDS: KCL ELIXIR 40 MEQ TUBE ×2 (09:36→12:09)
[2024-08-30] MEDS: VITAMIN D3 (cholecalciferol) TUBE (09:36)
[2024-08-30 10:33] LABS: % Basophils 0.6 % (0-2); % Eosinophils 0.6 % (0-6); % Immature Granulocytes 0.6 % (0-0.5); % Lymphocytes 12.6 % (20.5-51.1); % Monocytes 7.8 % (1.7-9.3); % Neutrophils 77.8 % (42.2-75.2); Absolute Lymphocytes 0.2 10^3/uL (1.2-3.4); Absolute Monocytes 0.1 10^3/uL (0.1-0.6); Absolute Neutrophils 1.3 10^3/uL (1.4-6.5); Nucleated Red Blood Cells % 0 % (-)
[2024-08-30 11:04] VITALS: BP 124/66
--- NOTE | 2024-08-30 11:59 | W.PN.HOSP.TC ---
Today's Communication/Plan
-
Trend cbc
replete lytes
iv abx
Onc recs
Assessment / Plan
Assessment / Plan
General: Appears chronically ill, cachectic
HEENT: Other (Tracheostomy in place with passy jason valve. No bleeding / discharge. Marked edema of the distal tongue with eschar / ulceration at the tip.)
Respiratory: Trach collar noted. Coarse breath sounds.
Cardiac: S1/S2 and Regular Rhythm; No Murmur
GI: Soft, Non Tender, Non Distended, Normal Bowel Sounds and Other (G-tube in place without bleeding or discharge.)
Musculoskeletal: No Clubbing, No Cyanosis, No Edema and Other (Pinpoint tenderness over the costochondral angle anterior R lower ribs. No overlying skin lesions.)
Neuro: Awake, Alert and Oriented
A/P: Patient is a 69y M with PMH significant for head and neck cancer currently on chemo and XRT who presents to ED complaining of R chest pain, weight loss, fatigue, etc.
Pancytopenia likely secondary to chemotherapy
- Patient had relatively new anemia 1-2 weeks ago (7.4 g/dL) and required transfusion at that time.
- Has not had neutropenia / thrombocytopenia in the past.
- Follow cell counts and monitor for any evidence of bleeding.
-Hemoglobin at 9 status post 2 units of PRBC.
- Reportedly 'trace heme positive' stool in the ED. Formally heme test stool to confirm.
- Heme / Onc evaluation for additional recommendations.
Hyponatremia - Chronic
Mild Hypokalemia
Hypomagnesemia
Azotemia
- replete lytes
- Follow labs for improvement. DC further fluids.
Aspiration Pneumonia / Pneumonitis
- CT scan shows lower lung changes concerning for aspiration / pneumonitis.
- Certainly at risk for this with head and neck cancer / tongue swelling / problems tolerating secretions.
- IV abx for now.
- Aspiration precautions.
- Continue to use G-tube for nutrition / meds.
- Continue scopolamine / glycopyrrolate for secretion management.
Severe Protein-Calorie Malnutrition of chronic illness
- 30 lbs weight loss over the past few months.
- Patient is not taking in prescribed amount of nutrition via G-tube.
- Dietary evaluation. Started on tube feeding.
- Encourage administration of adequate nutrition. Patient / family education.
Squamous Cell Cancer of the Head and Neck
- Started on cisplatin and XRT regimen about 5-6 weeks ago. Will plan to hold until improvement in cell line.
- Marked tongue edema and distal ulceration noted on exam.
- Heme / Onc eval as noted above.
- Per spouse patient was drinking water at home. Also was getting speech/tongue therapy
- Refusing speech evaluation
Prostate Cancer s/p XRT
- Bladder scan protocol.
Sternum fracture secondary to mechanical fall
-Pain control
Resting bradycardia asymptomatic
-No pausea noted on tele
-With activity/exertion HR to 80s. REFUSING TELE.
DVT Prophylaxis: SCDs due to severe thrombocytopenia
Code Status: DNR
PT/OT-Home. VN?
update spouse over the phone in details.
Anticipated Discharge: > 48 hours
Subjective/Interval History
-
Date of Service: August 30, 2024
Tolerating TF
Hgb improved
DOES NOT WANT TO WEAR TELE
HR 58 on tele.
Objective Data
-
Labs:
Laboratory Results
08/30/24
05:20
WBC 1.7 L*
Hgb 9.7 L
Hct 27.4 L
Plt Count 90 L
Sodium 130 L
Potassium 3.2 L
Chloride 96 L
Carbon Dioxide 23
BUN 16
Creatinine 0.5 L
Glucose 118 H
Calcium 7.9 L
Vital Signs:
Vital Signs
Temp Pulse Resp BP Pulse Ox
98.2 F 60 16 122/69 100
08/30/24 07:00 08/30/24 07:00 08/30/24 07:00 08/30/24 07:00 08/30/24 07:00
I&O
08/29/24 08/30/24 08/31/24
06:59 06:59 06:59
Intake Total 500 / 500 360 / 360
Output Total 300 / 300 2900 / 2900
Balance 200 / 200 -2540 / -2540
Data Reviewed
-
Total Time Spent with Patient (in minutes): 55
[2024-08-30 14:43] LABS: Osmolality Urine 616 mOsm/kg (300-900)
[2024-08-30 15:00] VITALS: BP 138/67
[2024-08-30 15:48] LABS: Urine Sodium 159 mmol/L (30-90)
[2024-08-30 23:00] VITALS: BP 137/67
[2024-08-31] MEDS: ATIVAN 0.25 MG TUBE ×3 (02:42→20:35)
--- NOTE | 2024-08-31 03:26 | PTCARENOTE ---
Pt's trach suctioned and portex canula size 8 changed. Secretions extremely thick. Robinul 1mg ordered Q6h and pt w/ scopolamine patch behind R ear. INTERNATIONAL EXCHANGE COORDINATOR notified, Jamesul changed back to PRN. Pt 99% on RA. Pt w/o complaints. Plan of care discussed
w/ pt and call fall within reach.
[2024-08-31] MEDS: ROXICODONE ORAL SOLUTION 5 MG TUBE ×5 (05:04→23:05)
[2024-08-31 05:58] VITALS: BMI 19.4
[2024-08-31 06:56] LABS: Hematocrit 25.7 % (39.0-52.0); Mean Corpuscular Hgb 31.8 pg (27.0-31.0); Mean Corpuscular Volume 90.8 fL (80.0-94.0); Mean Platelet Volume 9.3 fL (7.4-10.4); Platelet Count 75 10^3/uL (130-400); Red Blood Cell Count 2.83 10^6/uL (4.70-6.10); Red Cell Dist. Width 16.3 % (11.5-14.5); White Blood Cell Count 1.2 10^3/uL (4.8-10.8)
[2024-08-31 07:07] LABS: Blood Urea Nitrogen 15 mg/dl (9-20); Calcium 7.9 mg/dl (8.4-10.2); Carbon Dioxide 26 mmol/L (22-30); Chloride 97 mmol/L (98-107); Estimated Creatinine Clearance 101 ml/min; Glucose 107 mg/dl (70-99); Magnesium 1.3 mg/dl (1.6-2.3); Sodium 129 mmol/L (135-145); eGFR > 60.00
[2024-08-31 07:55] VITALS: BP 154/66
[2024-08-31] MEDS: MAGNESIUM SULFATE 100 IV (08:11)
[2024-08-31] MEDS: VITAMIN D3 (cholecalciferol) 125 MCG TUBE (08:24)
[2024-08-31] MEDS: DELTASONE 10 MG TUBE (08:24)
[2024-08-31] MEDS: MAGNESIUM OXIDE 500 MG TUBE ×2 (08:24→20:04)
[2024-08-31] MEDS: VITAMIN B-12 1000 MCG TUBE (08:24)
[2024-08-31] MEDS: ROCEPHIN 1000 MG IV (08:25)
[2024-08-31] MEDS: NSS (PRESERVATIVE FREE) 10 ML IV (08:25)
[2024-08-31] MEDS: PROTONIX IV 40 MG IV (08:27)
[2024-08-31] MEDS: STERILE WATER FOR INJECTION 10 ML IV (08:28)
[2024-08-31] MEDS: FLUSH (NSS) IV ×2 (08:38→10:31)
[2024-08-31] MEDS: VIBRAMYCIN 260 MG IV ×2 (08:54→20:04)
[2024-08-31 11:34] LABS: Segmented Neutrophils 56 % (42-75)
[2024-08-31 11:35] LABS: Band Neutrophils 11 % (0-3)
[2024-08-31 11:41] LABS: Eosinophils 3 % (0-6); Lymphocytes 20 % (20-51); Monocytes 10 % (2-9)
[2024-08-31 11:47] LABS: Normal RBC Morphology No; Platelets Checked YES
[2024-08-31 11:48] LABS: Anisocytosis Slight
[2024-08-31 11:52] LABS: Ovalocytes FEW
[2024-08-31 11:54] LABS: Total Cells Counted 100
[2024-08-31 11:56] LABS: Absolute Neutrophils -Man Diff 0.8 10^3/uL (1.4-6.5)
--- NOTE | 2024-08-31 12:34 | W.PN.HOSP.TC ---
Addendum entered and electronically signed by Toby Levi MD 08/31/24 12:41:
Na at 129- urine studies noted. ?SIADH. on tube feeding. not on high free water flush amount. If significant downtrend may need samsca and nephro eval. trend bmp for now.
Original Note:
Today's Communication/Plan
-
trend cbc-remains neutropenic
Onc recs
IV abx
cont tube feeds
Replete mag
home vn on dc
chemo on hold
trend platelet
Assessment / Plan
Assessment / Plan
General: Appears chronically ill, cachectic
HEENT: Other (Tracheostomy in place with passy jason valve. No bleeding / discharge. Marked edema of the distal tongue with eschar / ulceration at the tip.)
Respiratory: Trach collar noted. Coarse breath sounds.
Cardiac: S1/S2 and Regular Rhythm; No Murmur
GI: Soft, Non Tender, Non Distended, Normal Bowel Sounds and Other (G-tube in place without bleeding or discharge.)
Musculoskeletal: No Clubbing, No Cyanosis, No Edema and Other (Pinpoint tenderness over the costochondral angle anterior R lower ribs. No overlying skin lesions.)
Neuro: Awake, Alert and Oriented
A/P: Patient is a 69y M with PMH significant for head and neck cancer currently on chemo and XRT who presents to ED complaining of R chest pain, weight loss, fatigue, etc.
Pancytopenia likely secondary to chemotherapy
- Patient had relatively new anemia 1-2 weeks ago (7.4 g/dL) and required transfusion at that time.
- Has not had neutropenia / thrombocytopenia in the past.
- Follow cell counts and monitor for any evidence of bleeding.
- Hemoglobin at 9 status post 2 units of PRBC.
- Reportedly 'trace heme positive' stool in the ED.
- Platelet downtrending at 75k from 90k yesterday.
- Onc recs as WBC continues to downtrend. WBC at 1.2 with bandemia. Remains neutropenic. ?lingering effects of chemotherapy.
Hyponatremia - Chronic
Mild Hypokalemia
Hypomagnesemia
Azotemia
- replete lytes
- Follow labs for improvement. DC further fluids.
Aspiration Pneumonia / Pneumonitis
- CT scan shows lower lung changes concerning for aspiration / pneumonitis.
- Certainly at risk for this with head and neck cancer / tongue swelling / problems tolerating secretions.
- IV abx for now.
- Aspiration precautions.
- Continue to use G-tube for nutrition / meds.
- Continue scopolamine / glycopyrrolate for secretion management.
Severe Protein-Calorie Malnutrition of chronic illness
- 30 lbs weight loss over the past few months.
- Patient is not taking in prescribed amount of nutrition via G-tube.
- Dietary evaluation. Started on tube feeding.
- Encourage administration of adequate nutrition. Patient / family education.
Squamous Cell Cancer of the Head and Neck
- Started on cisplatin and XRT regimen about 5-6 weeks ago. Will plan to hold until improvement in cell line.
- Marked tongue edema and distal ulceration noted on exam.
- Heme / Onc eval as noted above.
- Per spouse patient was drinking water at home. Also was getting speech/tongue therapy
- Refusing speech evaluation
Prostate Cancer s/p XRT
- Bladder scan protocol.
Sternum fracture secondary to mechanical fall
-Pain control
Resting bradycardia asymptomatic
-No pausea noted on tele
-With activity/exertion HR to 80s. REFUSING TELE.
DVT Prophylaxis: SCDs due to severe thrombocytopenia
Code Status: DNR
PT/OT-Home. VN?
update spouse over the phone in details on 08/30.
Anticipated Discharge: Within 24 hours
Subjective/Interval History
-
Date of Service: August 31, 2024
Tolerating tube feeds
states starting to feel better
Objective Data
-
Labs:
Laboratory Results
08/31/24
06:35
WBC 1.2 L*
Hgb 9.0 L
Hct 25.7 L
Plt Count 75 L
Sodium 129 L
Potassium 4.0
Chloride 97 L
Carbon Dioxide 26
BUN 15
Creatinine 0.5 L
Glucose 107 H
Calcium 7.9 L
Vital Signs:
Vital Signs
Temp Pulse Resp BP Pulse Ox
98.6 F 57 16 154/66 96
08/31/24 07:55 08/31/24 07:55 08/31/24 07:55 08/31/24 07:55 08/31/24 07:55
I&O
08/30/24 08/31/24 09/01/24
06:59 06:59 06:59
Intake Total 360 / 360 1350 / 1350
Output Total 2900 / 2900 2375 / 2375
Balance -2540 / -2540 -1025 / -1025
Data Reviewed
-
Total Time Spent with Patient (in minutes): 55
[2024-08-31 16:34] VITALS: BP 114/62
[2024-08-31 23:00] VITALS: BP 130/69
[2024-09-01 04:45] VITALS: BMI 18.8
[2024-09-01] MEDS: ROXICODONE ORAL SOLUTION 5 MG TUBE ×2 (05:22→10:37)
[2024-09-01 07:20] VITALS: BP 129/67
[2024-09-01] MEDS: VIBRAMYCIN 260 MG IV (08:22)
[2024-09-01] MEDS: NSS (PRESERVATIVE FREE) 10 ML IV (08:23)
[2024-09-01] MEDS: STERILE WATER FOR INJECTION 10 ML IV (08:23)
[2024-09-01] MEDS: PROTONIX IV 40 MG IV (08:23)
[2024-09-01] MEDS: VITAMIN D3 (cholecalciferol) 125 MCG TUBE (08:23)
[2024-09-01] MEDS: MAGNESIUM OXIDE 500 MG TUBE (08:24)
[2024-09-01] MEDS: FLUSH (NSS) IV (08:24)
[2024-09-01] MEDS: VITAMIN B-12 1000 MCG TUBE (08:24)
[2024-09-01] MEDS: ROCEPHIN 1000 MG IV (08:24)
[2024-09-01] MEDS: DELTASONE 10 MG TUBE (08:24)
[2024-09-01] MEDS: ATIVAN 0.25 MG TUBE (08:27)
[2024-09-01 09:02] LABS: Hematocrit 24.8 % (39.0-52.0); Hemoglobin 8.7 g/dL (13.0-18.0); Mean Corp Hgb Conc. 35.1 g/dL (33.0-37.0); Mean Corpuscular Hgb 31.2 pg (27.0-31.0); Mean Corpuscular Volume 88.9 fL (80.0-94.0); Mean Platelet Volume 9.4 fL (7.4-10.4); Platelet Count 76 10^3/uL (130-400); Red Blood Cell Count 2.79 10^6/uL (4.70-6.10); Red Cell Dist. Width 16.5 % (11.5-14.5); White Blood Cell Count 1.1 10^3/uL (4.8-10.8)
[2024-09-01 09:18] LABS: Blood Urea Nitrogen 16 mg/dl (9-20); Calcium 7.9 mg/dl (8.4-10.2); Carbon Dioxide 28 mmol/L (22-30); Chloride 95 mmol/L (98-107); Estimated Creatinine Clearance 98 ml/min; Glucose 126 mg/dl (70-99); Magnesium 1.4 mg/dl (1.6-2.3); Potassium 3.7 mmol/L (3.5-5.1); Sodium 129 mmol/L (135-145); eGFR > 60.00
[2024-09-01 10:37] VITALS: BP 107/58; PULSE 81; O2SAT 100
[2024-09-01] MEDS: ROBINUL 1 MG TUBE (10:44)
[2024-09-01 11:07] LABS: % Basophils 0.9 % (0-2); % Eosinophils 0.9 % (0-6); % Lymphocytes 21.8 % (20.5-51.1); % Monocytes 11.8 % (1.7-9.3); % Neutrophils 64.6 % (42.2-75.2); Absolute Lymphocytes 0.2 10^3/uL (1.2-3.4); Absolute Monocytes 0.1 10^3/uL (0.1-0.6); Absolute Neutrophils 0.7 10^3/uL (1.4-6.5); Nucleated Red Blood Cells % 0 % (-)
[2024-09-01 11:54] VITALS: BP 126/56
--- NOTE | 2024-09-01 12:55 | W.PN.HOSP.TC ---
Today's Communication/Plan
-
Discharge home today
Cefdinir to complete 7 days of antibiotic
Assessment / Plan
Assessment / Plan
A/P: Patient is a 69y M with PMH significant for head and neck cancer currently on chemo and XRT who presents to ED complaining of R chest pain, weight loss, fatigue, etc.
Pancytopenia likely secondary to chemotherapy
- Patient had relatively new anemia 1-2 weeks ago (7.4 g/dL) and required transfusion at that time.
- Has not had neutropenia / thrombocytopenia in the past.
- Follow cell counts and monitor for any evidence of bleeding.
- Hemoglobin at 9 status post 2 units of PRBC.
- Reportedly 'trace heme positive' stool in the ED.
- Platelet downtrending at 75k from 90k yesterday.
- Cell counts stable, expected improvement following oliver of chemoregimen
Hyponatremia - Chronic
Mild Hypokalemia
Hypomagnesemia
Azotemia
- replete lytes
- Follow labs for improvement. DC further fluids.
Aspiration Pneumonia / Pneumonitis
- CT scan shows lower lung changes concerning for aspiration / pneumonitis.
- Certainly at risk for this with head and neck cancer / tongue swelling / problems tolerating secretions.
- IV abx for now.
- Aspiration precautions.
- Continue to use G-tube for nutrition / meds.
- Continue scopolamine / glycopyrrolate for secretion management.
- DC on Cefdinir to complete 7 days
Severe Protein-Calorie Malnutrition of chronic illness
- 30 lbs weight loss over the past few months.
- Patient is not taking in prescribed amount of nutrition via G-tube.
- Dietary evaluation. Started on tube feeding.
- Encourage administration of adequate nutrition. Patient / family education.
Squamous Cell Cancer of the Head and Neck
- Started on cisplatin and XRT regimen about 5-6 weeks ago. Will plan to hold until improvement in cell line.
- Marked tongue edema and distal ulceration noted on exam.
- Heme / Onc eval as noted above.
- Per spouse patient was drinking water at home. Also was getting speech/tongue therapy
- Refusing speech evaluation
Prostate Cancer s/p XRT
- Bladder scan protocol.
Sternum fracture secondary to mechanical fall
-Pain control
Resting bradycardia asymptomatic
-No pausea noted on tele
-With activity/exertion HR to 80s. REFUSING TELE.
DVT Prophylaxis: SCDs due to severe thrombocytopenia
Code Status: DNR
PT/OT-Home. VN?
update spouse over the phone in details on 08/30.
Anticipated Discharge: Today
Subjective/Interval History
-
Date of Service: September 01, 2024
Seen and examined at the bedside. No acute events reported overnight. AFVSS this morning
Remains pancytopenic though cell counts fairly stable. No evidence of bleeding, opportunistic infections
He denies any acute complaints. Very insistent on going home today
Objective Data
-
Labs:
Laboratory Results
09/01/24
08:42
WBC 1.1 L*
Hgb 8.7 L
Hct 24.8 L
Plt Count 76 L
Sodium 129 L
Potassium 3.7
Chloride 95 L
Carbon Dioxide 28
BUN 16
Creatinine 0.5 L
Glucose 126 H
Calcium 7.9 L
Vital Signs:
Vital Signs
Temp Pulse Resp BP Pulse Ox
98.1 F 71 17 129/67 99
09/01/24 07:20 09/01/24 07:20 09/01/24 07:20 09/01/24 07:20 09/01/24 07:20
I&O
08/31/24 09/01/24 09/02/24
06:59 06:59 06:59
Intake Total 1350 / 1350 1020 / 1020
Output Total 2375 / 2375 2550 / 2550
Balance -1025 / -1025 -1530 / -1530
Review of Systems
-
History Source: Patient
All other systems: Reviewed and negative
Physical Exam
-
General: Well Developed, No Apparent Distress, Comfortable and Cachectic
HEENT: Normocephalic, Atraumatic, Moist Mucous Membranes, Anicteric and Other (Tongue edema)
Respiratory: Clear to Auscultation and Non Labored Respirations
Cardiac: Regular Rhythm and S1/S2; Negative Murmur, Rub or Gallop
GI: Soft, Nontender, Nondistended and Normal Bowel Sounds
Musculoskeletal: No Clubbing, No Cyanosis and No Edema
Skin: Warm and Dry; Negative Rash
Neuro: AO x 3, Nonfocal/Grossly Intact and Slurred Speech (Secondary to hypoglossal edema); Negative Tremors
Psych: Agitated
Data Reviewed
-
Labs: Labs Reviewed by me, Discussed with Physician (Oncology) and Discussed with Patient
--- NOTE | 2024-09-01 17:17 | W.DCSUMMARY ---
Discharge Summary
Discharge Data
Date of Admission: 08/28/24
Date of Discharge: 09/01/24
-
Pending Results: No
Hospital Course
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 Blood counts were monitored closely throughout the oliver of his
chemotherapeutic regimen. He received 2 units of PRBC supportively while in the hospital. Workup negative for sources of blood loss anemia. Was put on to neutropenic precautions for ANC count 700. Did not have any fevers while hospitalized.
Platelet counts plateaued at 75,000. No G-CSF given during hospitalization due to current XRT. Oncology evaluated patient while in the hospital
He did have signs of aspiration with pulmonary infiltrates. Was treated with 4 days of IV ceftriaxone and doxycycline while in the hospital. No fevers or significant oxygen requirements noted. Was transition to cefdinir to complete 7 days of
antibiotics. Unlikely to truly have bacterial pneumonia however benefits of a short course of antibiotics outweighed risks of not treating in the context of neutropenia.
Encouraged to follow-up with his primary physicians after discharge from the hospital. Told patient to return to the ED if he developed fevers in the subsequent days after discharge
Discharge Plan
-
Patient Disposition: Home (Routine Discharge)
Discharge Diagnosis/Procedures: Pancytopenia
Aspiration
Condition: Fair
Diet: Tube feeding and Other diet
Additional Diets: In hospital received Jevity 1.5 with goal rate 60 mL/h
Referrals:
Kwame Kendrick CRNP [Family Provider] -
Additional Discharge Medication Instructions: Continue with cefdinir 300 mg every 12 hours for 3 more days after discharge
Prescriptions:
New
cefdinir 300 mg capsule
300 mg PO Q12H 3 Days Qty: 6 0RF
Continued
cholecalciferol (vitamin D3) [Vitamin D3] 25 mcg (1,000 unit) Tablet
25 mcg PO DAILY
cyanocobalamin (vitamin B-12) 1,000 mcg Tablet
1,000 mcg PO DAILY
ondansetron HCl 8 mg Tablet
8 mg PO Q8H PRN (Reason: nausea)
oxycodone 5 mg/5 mL Solution
5 mg PO Q4H
lorazepam [Ativan] 0.5 mg Tablet
0.25 mg PO Q6-12H PRN (Reason: anxiety)
acetaminophen [Tylenol] 325 mg Capsule
650 mg feeding tube Q6H PRN (Reason: pain)
glycopyrrolate 1 mg/5 mL (0.2 mg/mL) Solution
1 mg feeding tube Q6H
scopolamine base 1 mg over 3 days Patch 3 Day
1 patch TRANSDERMAL Q3D
prednisone 10 mg Tablet
10 mg feeding tube DAILY
Discharge Orders:
Discharge Patient (As Directed); Ordered 09/01/24
Ordered By: Dilan Hairston
Discharge Date and Time
Discharge Date/Time: 09/01/24 13:49
Print Language: NEPALI
== END 2024-09-01 13:49 | disposition home health service (06) | DRG 808 ==
LOC: 3 WEST ACU 04:42
PROVIDERS: Clinical Nurse Specialist Family Health; Hospitalist; ADMITTING PHYSICIAN Hospitalist; ATTENDING PHYSICIAN Internal Medicine; EMERGENCY PHYSICIAN Emergency Medicine; FAMILY PHYSICIAN Nurse Practitioner Family; OTHER PHYSICIAN Internal Medicine Hematology & Oncology
PROC: 30233N1 Transfusion of Nonautologous Red Blood Cells into Peripheral Vein, Percutaneous Approach (ICD-10-PCS; 2024-08-28)
DX: D61.810 Antineoplastic chemotherapy induced pancytopenia (principal); E43 Unspecified severe protein-calorie malnutrition; J69.0 Pneumonitis due to inhalation of food and vomit; S22.20XA Unspecified fracture of sternum, initial encounter for closed fracture; E87.1 Hypo-osmolality and hyponatremia; Z68.1 Body mass index [BMI] 19.9 or less, adult; R64 Cachexia; Z66 Do not resuscitate; E87.6 Hypokalemia; E83.51 Hypocalcemia; E83.42 Hypomagnesemia; C02.9 Malignant neoplasm of tongue, unspecified; T45.1X5A Adverse effect of antineoplastic and immunosuppressive drugs, initial encounter; G89.3 Neoplasm related pain (acute) (chronic); I10 Essential (primary) hypertension; Z88.0 Allergy status to penicillin; Z79.899 Other long term (current) drug therapy; Z79.891 Long term (current) use of opiate analgesic; Z96.643 Presence of artificial hip joint, bilateral; Z93.0 Tracheostomy status; Z92.3 Personal history of irradiation; Z87.891 Personal history of nicotine dependence; Z85.46 Personal history of malignant neoplasm of prostate; W19.XXXA Unspecified fall, initial encounter; Z11.52 Encounter for screening for COVID-19
CPT/HCPCS: 71275; 76700; 80048; 80053; 82306; 83690; 83735; 83930; 83935; 84100; 84300; 84443; 84484; 85014; 85018; 85025; 86850; 86900; 86901; 86920; 87502; 87811; 92523; 93005; 96374; 97116; 97163; 97167; 97530; 99285; P9016; Q9967

== ENCOUNTER 2024-09-16 09:51 | Emergency (ER) | payer BC, MEDICARE, SELFPAY ==
[2024-09-16 09:54] VITALS: BP 117/79
--- NOTE | 2024-09-16 12:22 | ED.GENMED ---
History of Present Illness
General
Chief Complaint: Catheter/Tube Problem
Source: patient and spouse
Exam Limitations: none
Time Seen by Provider: 09/16/24 10:54
Nursing documentation reviewed up to this point in time: agreed with
History of Present Illness
History of Present Illness:
69-year-old male with history as documented notable for head neck cancer, trach and PEG�he is PEG dependent for feeds. Presents with his due to tear in his PEG tube. Patient noted some leaking from the distal aspect of the tube today and came
in for assessment. No other symptoms or complaints. PEG was [facility] at [facility] in late May. Follows with Dr. Galvan for oncology.
Past History
Past History
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 Sleep apnea, Anemia, )
ED Past Surgical History: Orthopedic (Bilateral total hip replacements), Urological (lithotripsies, TURP) and Other (Trach, Peg tube)
Social History
Tobacco: Former smoker
Alcohol: None
Drug: Marijuana
Personal:
Living: with family
Employment: Employed
Family History
Family History: Other (Noncontributory)
Review of Systems
Review of Systems
All Other Systems: ROS reviewed and negative except as documented in HPI and ROS
ABD/GI: Reports other (PEG issue)
Phy Exam
Physical Exam
Physical Exam:
General: Well appearing and non-toxic
HEENT: Tracheostomy in place
Neck: appears supple
CV: No evidence of cyanosis
Resp: No accessory muscle use
Abd: Non-distended; PEG tube in place with tear in the midpoint with tiny leak; 16 Algerian tube
Extremities: No deformities
Neuro: Alert
Psych: Normal affect
Skin: Intact
Scores
Heart Failure Risk
Heart Failure Risk Score: Not Applicable
Heart Score for Chest Pain Patients
STEMI patient?: Not applicable
Withdrawal Assessment of Alcohol
Withdrawal Assessment Completed?: Not applicable
Course
Orders/Labs/Results
Orders:
Orders
09/16/24 11:07
Tube Check [CR Cont Inj Eval Tube(by Rad)] Urgent
Comment:
Reason For Exam: PEG replaced
Vital Signs
Initial and Last Documented VS:
Initial Vital Signs
Temp Pulse Resp BP Pulse Ox
36.7 C 98 18 117/79 99
09/16/24 09:54 09/16/24 09:54 09/16/24 09:54 09/16/24 09:54 09/16/24 09:54
Last Documented Vital Signs
Temp Pulse Resp BP Pulse Ox
36.7 C 98 18 117/79 99
09/16/24 09:54 09/16/24 09:54 09/16/24 09:54 09/16/24 09:54 09/16/24 09:54
Procedures
Other
Indication for procedure:: PEG leaking
Procedure completed by: Zeeshan Gurrola MD
Additional Procedure:
PEG Replacement
Patient placed supine.
Previous PEG removed after deflating balloon.
New 16F PEG tube placed in tract.
Balloon inflated with 5cc saline solution.
Tube freely mobile, rotates in place after balloon inflation.
Bumper pulled taut to skin.
Gastric contents aspirated.
X-ray confirmed placement.
Patient tolerated well.
MDM/Problems Addressed
Differential Diagnosis Includes:
PEG complication
MDM/Problems Addressed:
69-year-old male who is PEG dependent presents with a tear in his PEG tube. He has a [address] tube in place which has been in place for 2+ months. PEG tube was exchanged at bedside. After exchange new tube moving freely, rotating freely and
x-ray shows appropriate placement on my independent review. Stable for discharge.
Chronic conditions affecting care:
Head neck cancer and PEG dependent
*Radiology
Radiology exam reviewed: preliminary read by ED provider
*Pulse Oximetry
Patient hypoxic: no
*Critical Care Note
Total Time (30-74mins, 75-104mins- exclusive of procedures): Not Applicable
Data Reviewed
Review of Other/Old Records Reveals: Records
Source: patient, records and spouse
ED Attending Note
-
Portions of this chart may have been created with voice recognition software.� Occasional wrong word or��sound alike� substitutions may have occurred due to the inherent limitations of voice recognition software.
Discharge Plan
Departure
Patient Disposition: Home (Routine Discharge)
Date of Disposition: 09/16/24
Time of Disposition: 12:25
Patient with high blood pressure during this ER visit?: No
Discharge Problem:
PEG (percutaneous endoscopic gastrostomy) adjustment/replacement/removal
Instructions: How to Care for Your Gastrostomy Tube
Prescriptions:
No Action
cholecalciferol (vitamin D3) [Vitamin D3] 25 mcg (1,000 unit) Tablet
25 mcg PO DAILY
cyanocobalamin (vitamin B-12) 1,000 mcg Tablet
1,000 mcg PO DAILY
ondansetron HCl 8 mg Tablet
8 mg PO Q8H PRN (Reason: nausea)
oxycodone 5 mg/5 mL Solution
5 mg PO Q4H
lorazepam [Ativan] 0.5 mg Tablet
0.25 mg PO Q6-12H PRN (Reason: anxiety)
acetaminophen [Tylenol] 325 mg Capsule
650 mg feeding tube Q6H PRN (Reason: pain)
glycopyrrolate 1 mg/5 mL (0.2 mg/mL) Solution
1 mg feeding tube Q6H
scopolamine base 1 mg over 3 days Patch 3 Day
1 patch TRANSDERMAL Q3D
prednisone 10 mg Tablet
10 mg feeding tube DAILY
cefdinir 300 mg capsule
300 mg PO Q12H 3 Days Qty: 6 0RF
Referrals:
Kwame Kendrick CRNP [Family Provider] - Follow up in 5-7 days
Activity Restrictions/Additional Instructions:
Thank you for visiting the Emergency Department at [facility].
1. Please schedule a follow up appointment as directed. Call first thing tomorrow morning to make an appointment.
2. If indicated, please take your medications as instructed and indicated on discharge paperwork.
3. If any of your symptoms do not improve, or persist, or become more severe within 6-12 hours, please return to the emergency department for further care.
4. Please return to the emergency department if you develop a headache, neck pain/stiffness, fever greater than 100.4F, chest pain, shortness of breath, persistent nausea, vomiting, slurred speech, difficulty walking, numbness/tingling, weakness,
signs of infection or any other symptoms that are worrisome to you.
Please call [phone] if you have any questions.
Interventions
Interventions:
*Risk Screen - Suicide Last Done: 09/16/24 09:59
*Neglect/Abuse Screening Last Done: 09/16/24 09:59
*ED COVID-19 Vaccine History Last Done: 09/16/24 09:59
Discharge Date and Time
Print Language: ZIMBABWEAN
== END 2024-09-16 13:17 | disposition home or self-care (01) ==
LOC: EMR 09:51
PROVIDERS: EMERGENCY PHYSICIAN Emergency Medicine; FAMILY PHYSICIAN Nurse Practitioner Family
DX: Z43.1 Encounter for attention to gastrostomy (principal); I10 Essential (primary) hypertension; G47.30 Sleep apnea, unspecified; Z87.891 Personal history of nicotine dependence; Z85.818 Personal history of malignant neoplasm of other sites of lip, oral cavity, and pharynx
CPT/HCPCS: 43762; 99284; 49465

== ENCOUNTER 2024-10-01 02:03 | Inpatient (IN) | payer BC, MEDICARE, SELFPAY ==
[2024-09-30 21:17] VITALS: BP 117/70
[2024-09-30 21:59] LABS: COVID-19 Antigen Negative (Negative)
[2024-09-30 22:09] VITALS: BP 112/65
[2024-09-30 22:22] LABS: % Basophils 0.1 % (0-2); % Eosinophils 0.2 % (0-6); % Immature Granulocytes 1.6 % (0-0.5); % Lymphocytes 1.9 % (20.5-51.1); % Monocytes 12.1 % (1.7-9.3); % Neutrophils 84.1 % (42.2-75.2); Absolute Immature Granulocytes 0.2 10^3/uL (0-0.05); Absolute Lymphocytes 0.3 10^3/uL (1.2-3.4); Absolute Monocytes 1.8 10^3/uL (0.1-0.6); Absolute Neutrophils 12.3 10^3/uL (1.4-6.5); Hematocrit 22.1 % (39.0-52.0); Hemoglobin 7.6 g/dL (13.0-18.0); Mean Corp Hgb Conc. 34.4 g/dL (33.0-37.0); Mean Corpuscular Hgb 32.6 pg (27.0-31.0); Mean Corpuscular Volume 94.8 fL (80.0-94.0); Mean Platelet Volume 9.1 fL (7.4-10.4); Nucleated Red Blood Cells % 0 % (-); Platelet Count 293 10^3/uL (130-400); Red Blood Cell Count 2.33 10^6/uL (4.70-6.10); Red Cell Dist. Width 21.2 % (11.5-14.5); White Blood Cell Count 14.7 10^3/uL (4.8-10.8)
--- NOTE | 2024-09-30 22:29 | ED.GENMED ---
History of Present Illness
General
Chief Complaint: Chest Pain
Source: patient
Time Seen by Provider: 09/30/24 22:15
Nursing documentation reviewed up to this point in time: agreed with
History of Present Illness
History of Present Illness:
Pleasant 69-year-old male that presents with fever and chest pain. Patient is mostly nonverbal as he is being treated for tongue cancer at [facility]. His , primary historian, states that he started with chest pain this
afternoon. He has had a chronic cough and has had pneumonia several times. is concerned that this is pneumonia. Patient has a port which was previously accessed as well as a PEG tube. He gets nothing by mouth. Patient has stopped radiation
and chemotherapy due to size of the mass and low platelets. He is followed by Dr. Galvan.
Review of records shows tongue cancer stage III squamous cell., Previous history of hyponatremia, pancytopenia, malnutrition, chronic aspiration
Patient takes oxycodone for pain. In addition he takes Ativan for anxiety.
Able to communicate via written communication.
Past History
Past History
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 Sleep apnea, Anemia, )
ED Past Surgical History: Orthopedic (Bilateral total hip replacements), Urological (lithotripsies, TURP) and Other (Trach, Peg tube)
Social History
Tobacco: Former smoker
Alcohol: None
Drug: Marijuana
Personal:
Living: with family
Employment: Employed
Family History
Family History: Other (Noncontributory)
Review of Systems
Review of Systems
Allergies reviewed?: Yes
All Other Systems: Not applicable
Constitutional: Reports fever and sleep disturbance
EENT: Reports mouth pain
Respiratory: Reports no symptoms
Cardiac: Reports no symptoms
ABD/GI: Reports no symptoms
: Reports no symptoms
Musculoskeletal: Reports no symptoms
Skin: Reports no symptoms
Neurological: Reports no symptoms
Endocrine: Reports no symptoms
Hematologic/Lymphatic: Reports no symptoms
Psychiatric: Reports anxiety
Phy Exam
General Physical Exam
General Presentation: moderate distress
General age: appears older than age
General Skin: warm and dry
General Habitus: normal
General Mental: alert
General Hydration: dry mucous membranes
ENT Exam
ENT Exam: other (Necrotic tongue hanging out of patient's mouth.)
Pulmonary Exam
Pulmonary Exam: generalized wheezing and respiratory distress
Cough: coarse cough
Respirations: mild increase in effort
Breath Sounds: Wheeze: generalized
Scores
Heart Score for Chest Pain Patients
STEMI patient?: Not applicable
Sepsis
Sepsis Screening
Sepsis Assessment: Sepsis
Sepsis Screen
Sepsis Screen: Sepsis
Date: 10/01/24
Time: 01:07
Course
Orders/Labs/Results
Orders:
Orders
09/30/24 21:03
Electrocardiogram (*1) Urgent
Reason for Study: Chest Pain
EKG- Treatment ONCE
09/30/24 21:12
CR Chest - 2 Views Urgent
Comment:
Reason For Exam: chest pain
09/30/24 21:21
COVID-19 Antigen Urgent
Source: Nasal Swab
Influenza A+B Rapid Molecular Urgent
SAMANTHA Source: Nasal Swab
Specimen Description:
09/30/24 22:09
Complete Blood Count/With Diff Urgent
Comprehensive Metabolic Panel Urgent
Prothrombin Time Urgent
Troponin I Urgent
09/30/24 22:18
CT Chest PE Study Urgent
Comment:
Reason For Exam: CP, Cancer, tachy
09/30/24 22:21
Lactic Acid Urgent
09/30/24 22:25
Lorazepam [Ativan] 0.5 mg TUBE NOW STA
09/30/24 22:38
0.9% Sodium Chloride 1000 ml [Nss] 1,000 ml IV 250 mls/hr
09/30/24 22:40
Acetaminophen [Tylenol Suspension] 650 mg PO NOW STA
10/01/24 00:30
LevoFLOXacin 750 MG/150 ML [Levaquin] 750 mg in 150 ml IV NOW
10/01/24 00:35
HYDROmorphone [Dilaudid] 0.5 mg IV NOW STA
10/01/24 00:43
Procalcitonin Urgent
PCT Algorithmm Indication: Sepsis
Abnormal Lab Results
09/30/24
22:09
WBC 14.7 H 10^3/uL
(4.8-10.8)
RBC 2.33 L 10^6/uL
(4.70-6.10)
Hgb 7.6 L g/dL
(13.0-18.0)
Hct 22.1 L %
(39.0-52.0)
MCV 94.8 H fL
(80.0-94.0)
MCH 32.6 H pg
(27.0-31.0)
RDW 21.2 H %
(11.5-14.5)
Abs Immat Gran (auto) 0.2 H 10^3/uL
(0-0.05)
Absolute Neuts (auto) 12.3 H 10^3/uL
(1.4-6.5)
Absolute Lymphs (auto) 0.3 L 10^3/uL
(1.2-3.4)
Absolute Monos (auto) 1.8 H 10^3/uL
(0.1-0.6)
Immature Gran % 1.6 H %
(0-0.5)
Neutrophils % 84.1 H %
(42.2-75.2)
Lymphocytes % 1.9 L %
(20.5-51.1)
Monocytes % 12.1 H %
(1.7-9.3)
PT 15.8 H Sec
(11.4-14.6)
Sodium 132 L mmol/L
(135-145)
Chloride 96 L mmol/L
(98-107)
BUN 38 H mg/dl
(9-20)
Creatinine 0.6 L mg/dL
(0.7-1.3)
Glucose 147 H mg/dl
(70-99)
Total Protein 5.8 L g/dl
(6.3-8.2)
Albumin 3.2 L g/dl
(3.5-5.0)
09/30/24 22:09
09/30/24 22:09
Vital Signs
Initial and Last Documented VS:
Initial Vital Signs
Temp Pulse Resp BP Pulse Ox
101.1 F H 110 18 117/70 97
09/30/24 21:17 09/30/24 21:17 09/30/24 21:17 09/30/24 21:17 09/30/24 21:17
Last Documented Vital Signs
Temp Pulse Resp BP Pulse Ox
99.4 F 86 17 112/65 95
10/01/24 00:51 10/01/24 00:45 10/01/24 00:45 09/30/24 22:09 10/01/24 00:00
*Critical Care Note
Total Time (30-74mins, 75-104mins- exclusive of procedures): Not Applicable
Update Note
Update Note:
CTA CHEST
IMPRESSION:
1. Adequate technical study. No acute pulmonary embolism.
2. No thoracic aortic aneurysm or acute aortic dissection. Centrilobular and paraseptal emphysema. Mass within the lingula, has significantly increased in size since prior dated 08/28/2024, now measuring approximately 3.9 x 4 cm, compatible with
known neoplasm. Small left pleural effusion. Bibasilar atelectasis.
Incidentals:
-Healing sternal fracture. Calcified coronary atherosclerosis
- No acute osseous abnormality.
- No acute abnormality within the visualized abdomen.
- No thoracic lymphadenopathy or suspicious lymph nodes.
ED Attending Note
-
Portions of this chart may have been created with voice recognition software.� Occasional wrong word or��sound alike� substitutions may have occurred due to the inherent limitations of voice recognition software.
Discharge Plan
Departure
Patient Disposition: Admit
Date of Disposition: 10/01/24
Time of Disposition: 01:05
Admit to: Telemetry
Presentation/result/management discussed w/ accepting MD/DO: Hospitalist
Discharge Problem:
Squamous cell cancer of tongue, Cachectic, Fever
Prescriptions:
No Action
cholecalciferol (vitamin D3) [Vitamin D3] 25 mcg (1,000 unit) Tablet
25 mcg PO DAILY
cyanocobalamin (vitamin B-12) 1,000 mcg Tablet
1,000 mcg PO DAILY
ondansetron HCl 8 mg Tablet
8 mg PO Q8H PRN (Reason: nausea)
oxycodone 5 mg/5 mL Solution
5 mg PO Q4H
lorazepam [Ativan] 0.5 mg Tablet
0.25 mg PO Q6-12H PRN (Reason: anxiety)
acetaminophen [Tylenol] 325 mg Capsule
650 mg feeding tube Q6H PRN (Reason: pain)
glycopyrrolate 1 mg/5 mL (0.2 mg/mL) Solution
1 mg feeding tube Q6H
scopolamine base 1 mg over 3 days Patch 3 Day
1 patch TRANSDERMAL Q3D
prednisone 10 mg Tablet
10 mg feeding tube DAILY
cefdinir 300 mg capsule
300 mg PO Q12H 3 Days Qty: 6 0RF
Referrals:
Kwame Kendrick CRNP [Family Provider] -
Interventions
Interventions:
*General Assessment Last Done: 09/30/24 21:15
*ED COVID-19 Vaccine History Last Done: 09/30/24 21:15
ED- Cardiac Assessment Last Done: 09/30/24 22:10
Discharge Date and Time
Print Language: SINHALA
[2024-09-30 22:30] LABS: INR 1.23; PT 15.8 Sec (11.4-14.6)
[2024-09-30 22:37] LABS: ALT (SGPT) 13 U/L (0-50); AST (SGOT) 18 U/L (17-59); Albumin 3.2 g/dl (3.5-5.0); Alkaline Phosphatase 85 U/L (38-126); Blood Urea Nitrogen 38 mg/dl (9-20); Calcium 8.4 mg/dl (8.4-10.2); Carbon Dioxide 29 mmol/L (22-30); Chloride 96 mmol/L (98-107); Glucose 147 mg/dl (70-99); Potassium 3.8 mmol/L (3.5-5.1); Sodium 132 mmol/L (135-145); Total Bilirubin 0.6 mg/dl (0.2-1.3); Total Protein 5.8 g/dl (6.3-8.2); eGFR > 60.00
[2024-09-30 22:41] LABS: Lactic Acid 0.7 mmol/L (0.7-2.0)
[2024-09-30] MEDS: TYLENOL SUSPENSION 650 MG PO (22:44)
[2024-09-30 22:46] LABS: Troponin I < 0.012 ng/ml
[2024-09-30] MEDS: ATIVAN 0.5 MG TUBE (22:51)
[2024-09-30] MEDS: NSS 1000 IV (22:56)
[2024-10-01] VITALS (50 sets, daily range): BP systolic 86–133; BP diastolic 48–92; BMI 20.1
[2024-10-01] MEDS: DILAUDID 0.5 MG IV (00:37)
[2024-10-01] MEDS: LEVAQUIN 150 IV (00:39)
--- NOTE | 2024-10-01 01:33 | HPS.HSE ---
Family Physician
-
Family Physician: NEMO Chauhan
Chief Complaint
-
Chest pain and shortness of breath
History of Present Illness
This is a 69-year-old male with past medical history significant for squamous cell tongue cancer status post trach and PEG, finished chemotherapy and now on radiation treatments with last radiation about 1 week ago presents to the emergency
department with left-sided chest pain that started acutely and some shortness of breath. Found to be febrile in the ED.
Patient reports that he last had chemo 1 week ago but he was not successful due to tongue obstruction inability to fit the mask. Since then the tongue has shrunken down and appears price to black in color. He reports being in usual state of health
with some chronic cough up until today when he was brought to the emergency department due to complaint of severe left-sided chest pain with coughing. His coughing is not productive. He has no known sick contacts. Denies having fevers or chills
at home. There is been no nausea or vomiting. He reports some shortness of breath and dyspnea on exertion.
ED he was febrile to 101.1 initially in the ED, blood pressure was initially 110/60 with a pulse of 86. COVID test was negative, flu test was negative. His troponin was negative. EKG shows no acute ischemic changes. He had a CT PE study which
was negative for PE. There is a mass within the lingula that has significantly increased in size since August compatible with known neoplasm with. He has a small left pleural effusion and bibasilar atelectasis.
Medical History
Past Medical History
Past Medical History: Reports CAD and Cancer (Squamous cell cancer of the tongue,)
Past Surgical History: Reports Other
Social History
Tobacco: Former Smoker
Alcohol: None
Drug: None
Personal:
Living: With Family
Family History
Family History: Not pertinent
Allergies / Home Medications
Allergies reflects when Allergies were last updated in [employer].
Home Medications with original date entered in [employer]
Allergy/Medication List:
Allergies
Allergy/AdvReac Type Severity Reaction Status Date / Time
bee venom protein (honey bee) Allergy Severe Anaphylaxis Verified 09/30/24 21:12
Penicillins Allergy Rash Verified 09/30/24 21:12
Home Medications
cholecalciferol (vitamin D3) 25 mcg (1,000 unit) tablet (Vitamin D3) 25 mcg PO DAILY Supplement 05/01/23
cyanocobalamin (vitamin B-12) 1,000 mcg tablet 1,000 mcg PO DAILY Supplement 05/26/24
acetaminophen 325 mg capsule (Tylenol) 650 mg feeding tube Q6H PRN pain 07/25/24
glycopyrrolate 1 mg/5 mL (0.2 mg/mL) oral solution 1 mg feeding tube Q6H secretions 07/25/24
lorazepam 0.5 mg tablet (Ativan) 0.25 mg PO Q6-12H PRN anxiety 07/25/24
ondansetron HCl 8 mg tablet 8 mg PO Q8H PRN nausea 07/25/24
oxycodone 5 mg/5 mL oral solution 5 mg PO Q4H pain 07/25/24
scopolamine base 1 mg over 3 days transdermal patch 1 patch transdermal Q3D 08/15/24
prednisone 10 mg tablet 10 mg feeding tube DAILY tongue swelling 08/28/24
cefdinir 300 mg capsule 300 mg PO Q12H Lung/breathing issues 3 days #6 caps 09/01/24
Review of Systems
-
History Source: Patient
Constitutional: Reports No Symptoms
EENT: Reports No Symptoms
Respiratory: Reports Cough and Trouble Breathing
Cardiac: Reports Chest Pain
Abdomen/GI: Reports No Symptoms
: Reports No Symptoms
Musculoskeletal: Reports No Symptoms
Skin: Reports No Symptoms
Neurological: Reports No Symptoms
Endocrine: Reports No Symptoms
Hematologic/Lymphatic: Reports No Symptoms
Psych: Reports No Symptoms
Physical Exam
Vital Signs
Vital Signs
Temp Pulse Resp BP Pulse Ox
99.4 F 86 17 112/65 95
10/01/24 00:51 10/01/24 00:45 10/01/24 00:45 09/30/24 22:09 10/01/24 00:00
Physical Exam
General: Appears Chronically Ill
HEENT: Tracheostomy Collar, PERRLA, Neck Nontender and Other (large necrotic tongue residue hanging from mouth)
Respiratory: Decreased Breath Sounds
Cardiac: S1/S2 and Regular Rhythm
Breast: Deferred by me
GI: Peg Tube
Rectal: Deferred by Provider
Genito-urinary: Deferred by me
Musculoskeletal: No Clubbing, No Cyanosis and No Edema
Skin: Warm
Neuro: AO x 3 and Nonfocal/grossly intact
Psych: Calm
Laboratory Results
-
09/30/24 22:09
09/30/24 22:09
Laboratory Results
PT 15.8 Sec (11.4-14.6) H 09/30/24 22:09
INR 1.23 09/30/24 22:09
Lactic Acid 0.7 mmol/L (0.7-2.0) 09/30/24 22:21
Total Bilirubin 0.6 mg/dl (0.2-1.3) 09/30/24 22:09
AST 18 U/L (17-59) 09/30/24 22:09
ALT 13 U/L (0-50) 09/30/24 22:09
Alkaline Phosphatase 85 U/L (38-126) 09/30/24 22:09
Troponin I < 0.012 ng/ml 09/30/24 22:09
Data Reviewed
-
CT Scan: Report Reviewed by me
Medical Tests (Nuc Med, Echo, EKG etc): Image Personally Visualized and interpreted
Lab Data: Labs Reviewed by me
Old Records: Reviewed
Impression/Plan
-
IMPRESSION:
This is a 69 with a history of tongue cancer status post trach and PEG, status post chemo and now on radiation treatment with planned reconstruction in the future for also has a known lingular mass pending further evaluation presents to the
emergency department with left-sided chest pain and shortness of breath. Evaluation shows increase in size of the lingular mass which will be postobstructive pneumonia versus worsening tumor. He did have a fever. He does have leukocytosis. CT
was negative for PE.
PLAN:
Suspected pneumonia - Possible post-obstructive pneumonia within the lingula lobe lesion versus non-infectious process. Recently admitted here with pancytopenia and aspiration pneumonia.
- admit to med/surg
- blood cultures if febrile
- started levaquin in ED for CAP, will continue now as patient stable
- check MRSA swab
- check procalcitonin to confirm pneumonia
- no urinary symptoms, but check u/a to confirm source of infection
- check legionella
- pulm consult
- given growing mass consider oncology consult.
Chest pain - MS[facility], negative ecg, troponin and negative PE study. No cardiac history and non-cardiac in description
- cough suppression and pain control
Anemia -
hgb is stable off chemo
- monitor for now
PEG
- on Jevity 2 cans am, 2cans lunch, 3 cans dinner
- water flushes 120 ml before and after each meal
- water flushes 120 mls QID additionally
- nutrition consult
DVT PPX - lovenox sq
Code status - Limited DNR, no vents.
[2024-10-01 01:57] LABS: Procalcitonin 0.26 ng/ml (0.0-0.25)
[2024-10-01] MEDS: LR 1000 IV ×3 (02:38→22:40)
[2024-10-01 06:59] LABS: Glucose - Point of Care 151 mg/dl (70-99)
--- NOTE | 2024-10-01 07:01 | W.PN.UPDATE ---
Update Note
Progress Note Update
Per nursing staff, patient had an episode of vasovagal while he is out of the bed trying to use the bathroom with the assisting of the staff. [employer] called and was canceled as the patient back his base line once he was taken back to bed. at
bedside and she would like to avoid Dilaudid.
-Few mins later, staff is reporting an episode of melena. Discussed with the admitting physician.
-PPI IV 80 mg and then bid started
-Will monitor h&h
-GI consulted
-will transfer the patient to telemetry.
[2024-10-01 07:26] LABS: Hematocrit 16.5 % (39.0-52.0); Hemoglobin 5.5 g/dL (13.0-18.0); Mean Corp Hgb Conc. 33.3 g/dL (33.0-37.0); Mean Corpuscular Volume 95.9 fL (80.0-94.0); Mean Platelet Volume 8.9 fL (7.4-10.4); Platelet Count 247 10^3/uL (130-400); Red Blood Cell Count 1.72 10^6/uL (4.70-6.10); Red Cell Dist. Width 21.2 % (11.5-14.5); White Blood Cell Count 16.6 10^3/uL (4.8-10.8)
[2024-10-01 07:28] LABS: Blood Urea Nitrogen 43 mg/dl (9-20); Calcium 7.8 mg/dl (8.4-10.2); Carbon Dioxide 25 mmol/L (22-30); Chloride 101 mmol/L (98-107); Glucose 147 mg/dl (70-99); Sodium 134 mmol/L (135-145); eGFR > 60.00
[2024-10-01 07:43] LABS: Procalcitonin 0.23 ng/ml (0.0-0.25)
--- NOTE | 2024-10-01 08:13 | VNURNOTE ---
Chart reviewed. Patient is current with [facility] nursing, [employer], PT. Will continue to follow hospital course and DC plans.
[2024-10-01] MEDS: ROBINUL TUBE ×3 (08:23→19:13)
[2024-10-01] MEDS: ROXICODONE ORAL SOLUTION PO ×3 (08:23→23:19)
[2024-10-01] MEDS: PROTONIX IV 80 MG IV (08:35)
[2024-10-01] MEDS: NSS (PRESERVATIVE FREE) 20 ML IV (08:36)
--- NOTE | 2024-10-01 09:01 | W.PN.UPDATE ---
Update Note
Progress Note Update
Nonbillable note
Tongue cancer status post radiation/chemo -get radiation by Dr. Matta at [facility]. Follows up with Dr. Galvan locally and had chemo therapy 1 week back. Patient have part of anterior tongue sloughed off from dry gangrene, sample in the room.
Remaining tongue looks healthy on exam.
Tracheostomy -patient tracheostomy in place with excessive secretion. Continue respiratory care
Sepsis in immunocompromise patient-fever/tachycardia/leukocytosis -potential source of wound around tracheostomy site, purulent drainage on wound. Also left lingular lobe presumed postobstructive pneumonia. Respiratory culture to be collected from
tracheostomy. Blood culture ordered. Started on empiric vancomycin and cefepime.
Melena/acute blood loss anemia -hemoglobin down to 5.5 and reported black stool in the ER. Ordering 2 unit PRBC. Question of possible aspirated blood from sloughing of tongue versus true GI source. GI has been consulted for further evaluation.
Discussed with GI and will try to get occult blood test on gastric aspirate. PEG tube in place and can be used if GI cleared. Maintain on IV PPI twice daily for now
Complex problems. Need closer monitoring, transferred to IMU
[2024-10-01] MEDS: TRANSDERM-SCOP TRANSDERM (09:21)
--- NOTE | 2024-10-01 09:38 | CON.ONC ---
Impression
Impression
Tongue cancer status post radiation/chemo
Lung mass
Post obstructive PNA
Sepsis in immunocompromise patient with fever/tachycardia/leukocytosis
Melena/acute anemia
DNR per patients wishes - Stated to me w at bedside 'I do not wish CPR or prolonged ventilation'
Plan
Plan
Agree with resuscitation with PRBC for acute anemia and broad spectrum Abx. Started on empiric vancomycin and cefepime.
IVF hydration.
2 u PRBC ordered.
Limited DNR ordered as per his wishes.
Transfuse PRN to maintain HgB > 7. Blood loss and chemo are likely etiologies for his anemia.
Complex critically ill patient with advanced malignancy that seems to be progressive with enlarging pulm mass.
Will follow.
Patient History
History of Present Illness
CC: shortness of breath
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
dose cisplatin 08/22. He is status post trach and PEG presents to [facility] emergency department with left-sided chest pain that started acutely and some shortness of breath. Found to be febrile in the ED.
He reports being in usual state of health with some chronic cough up until today when he was brought to the emergency department due to complaint of severe left-sided chest pain with coughing with shortness of breath and dyspnea on exertion. Left
sided pleuritic chest pain. Spo2 97%. In the ED, he was febrile to 101.1. A CT PE study which was negative for PE. There is a mass within the lingula that has significantly increased in size since August compatible with metastasis. He has a
small left pleural effusion and bibasilar atelectasis. A follow up PET scan was scheduled for this Sunday as outpatient.
Being admitted for sepsis in immunocompromise patient with fever tachycardia leukocytosis. He likely has a left lingular lobe presumed postobstructive pneumonia. Started on empiric vancomycin and cefepime.
Melena acute blood loss anemia hemoglobin down to 5.5 and reported black stool and pre-syncope in the ER. Ordered IVF and 2 unit PRBC.
Past-Medical/Surgical History
PMH:
CAD and Cancer (Squamous cell cancer of the tongue,) Hypertension, prostate carcinoma treated with ADT + radiation therapy
PSH:
Repair of a hip fracture
Diagnostic bronchoscopy
Laryngeal endoscopy
Tracheotomy
G-tube
Social History
Tobacco: Former Smoker
Alcohol: None
Drug: None
Personal:
Living: With Family
Family History: Not pertinent
Patient Medication
�Medication �Instructions �Recorded �Confirmed �Last Taken �Type
cyanocobalamin (vitamin B-12) 1,000 mcg feeding tube DAILY 05/26/24 10/01/24 08/22/24 History
1,000 mcg tablet Supplement
glycopyrrolate 1 mg/5 mL (0.2 1 mg feeding tube Q6HPRN PRN 07/25/24 10/01/24 08/22/24 History
mg/mL) oral solution secrtions
oxycodone 5 mg/5 mL oral solution 5 mg feeding tube QID pain 07/25/24 10/01/24 08/21/24 History
scopolamine base 1 mg over 3 days 1 patch transdermal Q3D 08/15/24 10/01/24 10/01/24 History
transdermal patch
lorazepam 2 mg/mL oral concentrate 1 mg feeding tube DAILY 10/01/24 10/01/24 Unknown History
(Lorazepam Intensol)
lorazepam 2 mg/mL oral concentrate 1 mg feeding tube TIDPRN PRN 10/01/24 10/01/24 Unknown History
(Lorazepam Intensol) anxiety
Active Medications
Generic Name Dose Route Start Last Admin
Trade Name Freq PRN Reason Stop Dose Admin
Acetaminophen 650 mg 10/01/24 02:18
Acetaminophen 325 Mg Tablet TUBE 10/29/24 02:17
Q6H PRN
pain
Albuterol/Ipratropium 3 ml 10/01/24 02:18
Ipratropium 0.5/Albuterol 3 Mg (3 Ml Ampul) INH
R Q4HPRN PRN
shortness of breath
Protocol
Bisacodyl 10 mg 10/01/24 02:18
Bisacodyl 10 Mg Rectal Suppository RECTAL 10/29/24 02:17
[id number] PRN
constipation
Cefepime HCl 2,000 mg 10/01/24 10:00
Cefepime Hcl 2,000 Mg/12.5 Ml Vial IV
Q8H EDUARDO
Enoxaparin Sodium 40 mg 10/01/24 18:00
Enoxaparin Sodium 40 Mg/0.4 Ml Syringe SC 10/29/24 17:59
QPM EDUARDO
Glycopyrrolate 1 mg 10/01/24 06:00 10/01/24 08:23
Glycopyrrolate 1 Mg Tablet TUBE 10/29/24 05:59 Not Given
Q6H EDUARDO
Lactated Ringer's 1,000 mls @ 100 mls/hr 10/01/24 02:18 10/01/24 02:38
Lr IV 1,000 mls
.Q10H EDUARDO Administration
Vancomycin HCl 1,500 mg/ 530 mls @ 353.333 mls/hr 10/01/24 08:43
Sodium Chloride IV 10/01/24 10:12
NOW STA
Lorazepam 0.25 mg 10/01/24 02:18
Lorazepam 0.5 Mg Tablet PO 10/29/24 02:17
Q6HPRN PRN
anxiety
Ondansetron HCl 4 mg 10/01/24 02:18
Ondansetron 4 Mg/2 Ml Vial IV 10/29/24 02:17
Q6HPRN PRN
nausea and vomiting
Oxycodone HCl 5 mg 10/01/24 06:00 10/01/24 08:23
Oxycodone Oral Solution (5 Mg/5 Ml) Cup PO 10/15/24 05:59 Not Given
Q4H EDUARDO
Pantoprazole Sodium 40 mg 10/01/24 20:00
Pantoprazole Sodium 40 Mg/10 Ml Vial IV 10/29/24 19:59
BID EDUARDO
Polyethylene Glycol 17 grams 10/01/24 02:18
Polyethylene Glycol Powder 17 Grams Packet TUBE 10/29/24 02:17
DAILYPRN PRN
constipation
Scopolamine HBr 1 patch 10/01/24 08:00 10/01/24 09:21
Scopolamine Patch (1 Mg/3 Days) TRANSDERM 10/29/24 07:59 Not Given
Q3D EDUARDO
Senna/Docusate Sodium 1 tablet 10/01/24 02:18
Docusate W/Senna (Coco-Colace) Tablet TUBE 10/29/24 02:17
BIDPRN PRN
constipation
Sodium Chloride 0 flush 10/01/24 03:00
Sodium Chloride 0.9% (Flush) Syringe IV 10/29/24 02:59
PER PROTOCOL EDUARDO
Sodium Chloride 10 ml 10/01/24 20:00
Sodium Chloride 0.9% (Preservative Free) 10 Ml Vial IV 10/29/24 19:59
BID EDUARDO
Sterile Water 10 ml 10/01/24 10:00
Sterile Water For Injection 10 Ml Vial IV 10/29/24 09:59
Q8H EDUARDO
Physical Exam
-
General: Appears in Distress, Pain and Appears Chronically Ill
HEENT: Other (Trach)
Cardiology: S1, S2 and Other (tachy)
Pulmonary: Rhonchi
GI: Soft and Other (G tube)
Extremities: No C/C/E
Neurology: Non Focal
Labs
Lab Results
WBC 16.6 10^3/uL (4.8-10.8) H 10/01/24 07:07
RBC 1.72 10^6/uL (4.70-6.10) L 10/01/24 07:07
Hgb 5.5 g/dL (13.0-18.0) L* D 10/01/24 07:07
Hct 16.5 % (39.0-52.0) L* 10/01/24 07:07
MCV 95.9 fL (80.0-94.0) H 10/01/24 07:07
MCH 32.0 pg (27.0-31.0) H 10/01/24 07:07
MCHC 33.3 g/dL (33.0-37.0) 10/01/24 07:07
RDW 21.2 % (11.5-14.5) H 10/01/24 07:07
Plt Count 247 10^3/uL (130-400) 10/01/24 07:07
MPV 8.9 fL (7.4-10.4) 10/01/24 07:07
Abs Immat Gran (auto) 0.2 10^3/uL (0-0.05) H 09/30/24 22:09
Absolute Neuts (auto) 12.3 10^3/uL (1.4-6.5) H 09/30/24 22:09
Absolute Lymphs (auto) 0.3 10^3/uL (1.2-3.4) L 09/30/24 22:09
Absolute Monos (auto) 1.8 10^3/uL (0.1-0.6) H 09/30/24 22:09
Absolute Eos (auto) 0.0 10^3/uL (0-0.7) 09/30/24 22:09
Absolute Basos (auto) 0.0 10^3/uL (0-0.2) 09/30/24 22:09
Immature Gran % 1.6 % (0-0.5) H 09/30/24 22:09
Neutrophils % 84.1 % (42.2-75.2) H 09/30/24 22:09
Lymphocytes % 1.9 % (20.5-51.1) L 09/30/24 22:09
Monocytes % 12.1 % (1.7-9.3) H 09/30/24 22:09
Eosinophils % 0.2 % (0-6) 09/30/24 22:09
Basophils % 0.1 % (0-2) 09/30/24 22:09
Creatinine 0.6 mg/dL (0.7-1.3) L 10/01/24 07:07
Vital Signs
Vital Signs
Temp Pulse Resp BP Pulse Ox
98.4 F 110 20 107/64 96
10/01/24 02:01 10/01/24 08:34 10/01/24 08:34 10/01/24 06:00 10/01/24 08:34
[2024-10-01] MEDS: VANCOCIN 530 MG IV (10:00)
--- NOTE | 2024-10-01 10:07 | CON.PUL ---
Consultation
Consultation Request
Date/Time Consultation Requested: 10/01/2024-7:30 AM
Date/Time Consultation Performed: 10/01/2024-8 AM
Requesting Provider: Hospitalist
Performing Provider: Dr. De Leon
Reason for Consultation: Shortness of breath
Medical History
-
Chief Complaint: Shortness of breath
History of Present Illness:
69-year-old male former smoker with squamous cell carcinoma of the tongue status post trach and gastrostomy tube finished chemotherapy now on radiation therapy who has a trach and Passy-Cecil valve presented with left-sided chest pain and shortness
of breath found to be febrile with suspected pneumonia-pulmonary consulted for pneumonia 10/01/2024. Patient is somewhat difficult to understand as he talks to a Passy-Marilee valve. He feels improved since he came with oxygen. He currently complains
of some left-sided chest pain worse with movement and inspiration. He has some chest congestion. He has moderate secretions. He does not normally complain of shortness of breath and offers no complaints of abdominal pain leg swelling or weakness.
Past Medical History
Past Medical History: None (CAD. COPD. Hypertension. Prostate cancer treated with radiation. Tongue cancer-squamous cell status post resection, chemo, radiation. Chronic aspiration. Tracheostomy tube. Gastrostomy tube.)
Social History
Tobacco: Former Smoker
Alcohol: Former
Drug: None
Personal:
Living: With Family
Occupational Exposures: No known asbestos exposure
Environmental Exposures: No known tuberculosis exposure
Family History
Family History: Reviewed & Not Pertinent
Allergies / Home Medications
Allergies
Allergy/AdvReac Type Severity Reaction Status Date / Time
bee venom protein (honey bee) Allergy Severe Anaphylaxis Verified 09/30/24 21:12
Penicillins Allergy Rash Verified 09/30/24 21:12
Home Medications
�Medication �Instructions �Recorded �Confirmed �Last Taken �Type
cyanocobalamin (vitamin B-12) 1,000 mcg feeding tube DAILY 05/26/24 10/01/24 08/22/24 History
1,000 mcg tablet Supplement
glycopyrrolate 1 mg/5 mL (0.2 1 mg feeding tube Q6HPRN PRN 07/25/24 10/01/24 08/22/24 History
mg/mL) oral solution secrtions
oxycodone 5 mg/5 mL oral solution 5 mg feeding tube QID pain 07/25/24 10/01/24 08/21/24 History
scopolamine base 1 mg over 3 days 1 patch transdermal Q3D 08/15/24 10/01/24 10/01/24 History
transdermal patch
lorazepam 2 mg/mL oral concentrate 1 mg feeding tube DAILY 10/01/24 10/01/24 Unknown History
(Lorazepam Intensol)
lorazepam 2 mg/mL oral concentrate 1 mg feeding tube TIDPRN PRN 10/01/24 10/01/24 Unknown History
(Lorazepam Intensol) anxiety
Review of Systems
-
Unable to Obtain full review of systems at this time due to: Other (Per HPI)
Vitals / Labs / Diagnostic Testing
Vital Signs
Temp Pulse Resp BP Pulse Ox
98.4 F 110 20 107/64 96
10/01/24 02:01 10/01/24 08:34 10/01/24 08:34 10/01/24 06:00 10/01/24 08:34
Lab Data
10/01/24 07:07
Laboratory Results
09/30/24
22:09
PT 15.8 H
INR 1.23
Microbiology
10/01/24 07:07 Urine Legionella Urinary Antigen - Final
Negative for Legionella pneumophila Serogroup 1 antigen.
A negative result does not rule out the possiblity of
Legionella infection due to other serogroups or species of
Legionella. Clinical correlation is recommended.
09/30/24 21:21 Nasal Swab Influenza Types A & B (ROMMEL) - Final
Negative for Influenza A & B, NAAT
Negative results must be combined with clinical observations
and patient history.
Nucleic Acid Amplification test (NAAT)performed on the
Prolebrity platform.
Diagnostic Testing:
Physical Exam
-
Exam:
Well-nourished and well-developed in no apparent distress
HEENT-atraumatic, normocephalic, tracheostomy to midline, well-healed, Passy-Marilee valve in place
Neck-supple, no JVD, no bruit
Heart-regular rate and rhythm-no murmurs, rubs or gallops
Chest with some kyphoscoliosis, crackles at the bases, expiratory rhonchi
Back without tenderness
Abdomen-soft, nontender, nondistended, no hepatosplenomegaly
Extremities-no cyanosis, clubbing, edema and good peripheral pulses
Integument-intact, no rashes, lesions or ecchymosis
Neurology-alert and oriented, nonfocal motor and sensory exam
Assessment
-
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
of breath found to be febrile with suspected pneumonia-pulmonary consulted for pneumonia 10/01/2024.
[id number]-possibly postobstructive
Chest pain
Left lingular mass increasing in size
GI bleed
Leukocytosis
Anemia-due to acute blood loss, mildly macrocytic-hemoglobin 5.5
Mild hyponatremia
Hyperglycemia
Hypocalcemia
Conditions present prior to admission:
CAD.
COPD.
Hypertension.
Prostate cancer treated with radiation.
Tongue cancer-squamous cell status post resection, chemo, radiation.
Chronic aspiration.
Tracheostomy tube.
Gastrostomy tube.
Plan
Acute respiratory decompensation likely related to postobstructive pneumonia in a patient who has underlying COPD
Supplemental oxygen as needed
Aspiration precautions
Mucolytic's
Routine tracheostomy tube care
Passy-Marilee valve as needed-patient's ENT Dr. Gusman
Nebulizers as needed
Mucus clearing devices
Bronchoscopy if mucous plugging
Suspect chest pain related to lung mass
Check cultures
Broad-spectrum antibiotics to cover postobstructive pneumonia-cefepime initiated, received 1 dose of vancomycin
Follow leukocytosis
Monitor hemoglobin
PPI
GI consultation
Transfuse as needed
Monitor blood sugar
Insulin supplementation as needed
Oncology evaluation-correspondence reviewed
Enlarging left lingular mass-not present on PET scan 07/04/2024
Currently no plans at lingular mass biopsy unless oncology feels would help with further management
Performance status unfortunately quite poor
Comfort a priority
DVT prophylaxis-mechanical while GI bleeding-Lovenox on hold
GI prophylaxis-on pantoprazole twice daily
Nutrition
Early mobilization
Unfortunately prognosis quite poor-reviewed with at the bedside
Diagnostic data:
Chest x-ray 05/21/2024-NAD
Chest x-ray 09/30/2024-confluent opacification left lower lobe correlating with possible lingular mass suspicious for neoplasia or carcinoma
CT chest 08/28/2024-no pulmonary embolism, moderate emphysematous changes, no bronchiectasis, 1.9 cm masslike opacification in the lingula increased in size with previous associated metabolic activity consistent with neoplasm
CT chest 09/30/2024-negative for pulmonary embolism mass within the lingula increased in size likely neoplasia, small left pleural effusion and emphysematous changes
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
Data Reviewed
-
EKG: Report reviewed by me
Radiology: Image personally visualized and interpreted and Report reviewed by me
CT Scan: Image personally visualized and interpreted and Report reviewed by me
Medical Tests (Nuc Med, Echo etc): Report reviewed by me
Labs: Labs reviewed by me
Old Records: Reviewed
Total Time Spent with Patient (in minutes): 65
[2024-10-01] MEDS: STERILE WATER FOR INJECTION 10 ML IV ×2 (10:38→17:53)
[2024-10-01] MEDS: MAXIPIME 2000 MG IV ×2 (10:40→17:53)
--- NOTE | 2024-10-01 10:52 | CON.GI ---
Addendum entered and electronically signed by Zenaida Hinojosa MD 10/01/24 18:29:
I saw and examined the patient.
The DOUGH PUNCHER or PA's note was reviewed and I agree with the note.
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 Farias and Dr. Galvan, as radiation end of August
presenting with some chest discomfort, fevers to the emergency room and had an episode of syncope and black stool and GI consult called in. He was noted to have fever/leukocytosis likely related to postobstructive pneumonia.
Patient does have tracheostomy tube and PEG tube placed prior to the radiation and uses PEG tube for water and nutrition-Jevity. Usually has only ice chips by mouth. He does report that he spits up sputum which is clear but today he did spit up
large necrotic material from the mouth. This never happened before. He has chronic constipation and does take MiraLAX through the G-tube. Never had black stool prior to this. No previous colonoscopy and as per daughter upper endoscopy done
during PEG tube placement.
Noted significant drop in hemoglobin-4.8 g/dL. He did receive 2 units of packed red blood cells. Baseline hemoglobin between 7-8.
CT scan of the chest 09/30/2024 showed mass within the lingula, significantly increased in size compared to August 2024. Small left pleural effusion, pericardial effusion noted.
On exam, outpatient bumper in the mid upper quadrant, bumper not tight and no leakage.
Irrigation of the PEG tube mostly clear
-Melena, Symptomatic anemia likely related to bleeding from the necrotic tissue from tongue cancer
No active bleeding noted on PEG irrigation
Continue PPI, monitor H&H and transfuse as needed.
Hold off on upper endoscopy given no further active bleeding and anticipate difficult endoscopy given the anatomy in the neck from tongue cancer. Also possible postobstructive pneumonia which can make sedation difficult as well.
Okay to use PEG tube for medication only.
If no further bleeding, will slowly restart tube feeds.
Continue antibiotics per medical team.
Will follow-up
Original Note:
Consultation
-
Date/Time Consultation Requested: 10/01/24 0715
Date/Time Consultation Performed: 10/01/24 1050
Requesting Provider: NEMO Magdaleno
Performing Provider: NEMO No, Zenaida Hinojosa MD
Reason for Consultation: anemia
Medical History
Chief Complaint / HPI
History of Present Illness:
Pt is a 69yo with hx HTN, renal stone/lithotripsy, prostate CA prior TURP/radiation, and squamous cell of tongue stage III with trach/peg with onset of chest pain. In review with family pt with prostate CA 2 years ago with TURP and radiation
through [place]. He retired with December and around day was diagnosed with tongue CA and quit tobacco and ETOH. He was seen on ENT on [facility] then proceeded with trach/peg, chemo with Dr. Galvan and radiation through [place] [facility] [place]. He
stopped radiation due to tongue swelling and chemo with thrombocytopenia. Plan for CT this Sunday for response to therapy and if improved possible surgery vs need for more treatment if noted tumor. On admission there was concern for PNA/trach
drainage with sepsis with fever/leukocytosis. He was noted 1/8 AM with brown stool then vasovagal episode with rapid response then episode of melena. He was also noted this am to have sloughing off of large segment of necrosis from tongue.
Initial hbg was 7.6 with drop to 5.5 after admission with BUN 43. CT on admission with neg PE but mass in lingula with increased size, small effusion, emphysema and sternal fracture. He admits to Motrin use last 1 1/2 months ago but now stopped.
At this time patient admits to odynophagia and dysphagia with chronic tube feed and occasional water. He is taking 7 can Jevity daily with recent change with wt loss with therapy. He has chronic nausea with use of scopolamine patch. He was
noted with some constipation and recently took Miralax and has been on chronic narcotics for pain control. He denies GERD, abdominal pain, or diarrhea. No hx EGD or colonoscopy in past. Pt had recent tube change 09/16 with tear in tube.
Past Medical History
Past Medical History: Cancer (prostate CA, squamous cell oropharyngeal CA of tongue- s/p chemo and radiation), HTN and Other (renal stones, back pain, sleep apnea, anemia )
Past Surgical History: Orthopedic (hip replacement ) and Urological (lithotripsy, TURP, trach/peg )
Social History
Tobacco: Former Smoker
Alcohol: Former
Drug: None
Personal:
Living: With Family
Employment: Retired
Family History
Family History: Other (no family hx GI cancers)
Allergies / Home Medications
Allergy/AdvReac Type Severity Reaction Status Date / Time
bee venom protein (honey bee) Allergy Severe Anaphylaxis Verified 09/30/24 21:12
Penicillins Allergy Rash Verified 09/30/24 21:12
�Medication �Instructions �Recorded
cyanocobalamin (vitamin B-12) 1,000 mcg feeding tube DAILY 05/26/24
1,000 mcg tablet Supplement
glycopyrrolate 1 mg/5 mL (0.2 1 mg feeding tube Q6HPRN PRN 07/25/24
mg/mL) oral solution secrtions
oxycodone 5 mg/5 mL oral solution 5 mg feeding tube QID pain 07/25/24
scopolamine base 1 mg over 3 days 1 patch transdermal Q3D 08/15/24
transdermal patch
lorazepam 2 mg/mL oral concentrate 1 mg feeding tube DAILY 10/01/24
(Lorazepam Intensol)
lorazepam 2 mg/mL oral concentrate 1 mg feeding tube TIDPRN PRN 10/01/24
(Lorazepam Intensol) anxiety
Review of Systems
-
History Source: Patient and Family
Constitutional: Reports Fever, Weight Loss and Fatigue
EENT: Reports No Symptoms and Other (tongue swelling with recent sloughing off of necrotic tongue tissue )
Cardiac: Reports Chest Pain and Syncope
Abdomen/GI: Reports Nausea (controlled with scopamine ), Constipated, Black Stools and Other (odynophagia/dysphagia )
: Reports No Symptoms
Musculoskeletal: Reports No Symptoms
Skin: Reports No Symptoms
Neurological: Reports Dizzy and Weakness
Hematologic/Lymphatic: Reports Bleeding
Vital Signs
Temp Pulse Resp BP Pulse Ox
98.0 F 90 20 113/64 97
10/01/24 10:39 10/01/24 10:39 10/01/24 10:39 10/01/24 10:39 10/01/24 10:21
Physical Exam
Exam
General: Other (chronic ill appearing with trach and peg but awake and alert )
HEENT: Normocephalic and Anicteric
Respiratory: Other (decreased bases )
Cardiac: Regular Rhythm
GI: Soft, Non Tender, Non Distended and Other (peg intact, no buried bumper, minimal drainage, irrigation clear )
Musculoskeletal: No Clubbing and No Cyanosis
Skin: Warm and Dry
Neuro: Awake, Alert, AO x 3 and Other (slurred speech with hx tongue CA)
Psych: Calm
Results
WBC 16.6 10^3/uL (4.8-10.8) H 10/01/24 07:07
Hgb 5.5 g/dL (13.0-18.0) L* D 10/01/24 07:07
Hct 16.5 % (39.0-52.0) L* 10/01/24 07:07
MCV 95.9 fL (80.0-94.0) H 10/01/24 07:07
Plt Count 247 10^3/uL (130-400) 10/01/24 07:07
Absolute Neuts (auto) 12.3 10^3/uL (1.4-6.5) H 09/30/24 22:09
PT 15.8 Sec (11.4-14.6) H 09/30/24 22:09
INR 1.23 09/30/24 22:09
Sodium 134 mmol/L (135-145) L 10/01/24 07:07
Potassium 4.0 mmol/L (3.5-5.1) 10/01/24 07:07
Chloride 101 mmol/L (98-107) 10/01/24 07:07
Carbon Dioxide 25 mmol/L (22-30) 10/01/24 07:07
BUN 43 mg/dl (9-20) H 10/01/24 07:07
Creatinine 0.6 mg/dL (0.7-1.3) L 10/01/24 07:07
Calcium 7.8 mg/dl (8.4-10.2) L 10/01/24 07:07
Total Bilirubin 0.6 mg/dl (0.2-1.3) 09/30/24 22:09
AST 18 U/L (17-59) 09/30/24 22:09
ALT 13 U/L (0-50) 09/30/24 22:09
Alkaline Phosphatase 85 U/L (38-126) 09/30/24 22:09
Diagnostic Image Results:
09/30/24 CT Chest PE Study
Examination negative for pulmonary embolism.
Mass within the lingula, significantly increasing in size since examination August 28, 2024, likely neoplasia/carcinoma.
Small left pleural effusion.
Small pericardial effusion, mainly anteriorly and inferiorly.
Changes of emphysema.
Sternal fracture, also present on previous examination of August 28, 2024, with some sclerosis suggesting a component of healing.
09/30/24 CR Chest - 2 Views
Confluent opacity within the left lower lung. Correlating with CT examination of the same date, there is a lingular mass which is suspicious for neoplasia/carcinoma. Small left pleural effusion and patchy atelectasis within the left lower lobe.
Prior GI Procedures:
EGD: none
Colonoscopy: none
Assessment / Plan
-
Pt is a 69yo with hx HTN, renal stone/lithotripsy, prostate CA prior TURP/radiation, and squamous cell of tongue stage III with trach/peg with onset of chest pain. In review with family pt with prostate CA 2 years ago with TURP and radiation
through [place]. He retired with December and around day was diagnosed with tongue CA and quit tobacco and ETOH. He was seen on ENT on [facility] then proceeded with trach/peg, chemo with Dr. Galvan and radiation through [place] at [place]. He
stopped radiation due to tongue swelling and chemo with thrombocytopenia. Plan for CT this Sunday for response to therapy and if improved possible surgery vs need for more treatment if noted tumor. On admission there was concern for PNA/trach
drainage with sepsis with fever/leukocytosis. He was noted 8 AM with brown stool then vasovagal episode with rapid response then episode of melena. He was also noted this am to have sloughing off of large segment of necrosis from tongue.
Initial hbg was 7.6 with drop to 5.5 after admission with BUN 43. CT on admission with neg PE but mass in lingula with increased size, small effusion, emphysema and sternal fracture. He admits to Motrin use last 1 1/2 months ago but now stopped.
-symptomatic anemia with syncopal episode 10/01
-new onset melena
-stage III squamous cell tongue with sloughing off of tongue on admission, s/p recent chemo/radiation stopped 07/2024
-fever/sepsis/leukocytosis with concern for PNA on admission
-chronic trach with drainage from trach
-chronic peg
-sternal fx per imaging
-narcotic induced constipation
other med problems:
--prostate Ca with prior radiation/TURP
-renal stones/prior lithotripsy
-hip replacement
PLAN:
etiology of symptomatic anemia and melena related to sloughing off of tongue tumor noted on admission vs GI source (hx NSSAID use last 1 1/2 months ago) vs multi factorial with recent chemo vs other
current concern for sepsis with fever
only one stool with melena this am
cont PPI, trend hbg
peg irrigation with minimal clear and some pink from recently given morphine dose
I review with patient and for observation and transfusion
if recurrent drop in hbg or melena consider ENT eval to eval tumor with some sloughing off on admission
reviewed EGD may be difficulty with recent tongue swelling
await Dr. Galvan input for ongoing plan for treatment-- pt was for CT neck/chest this Sunday -- CT chest as noted on admission done as PE study
if no further melena and stable hbg consider resume tube feeds in AM
cont abx per medical team
miralax PRN with recent narcotic induced constipation
-
-
-
Thank you for consultation and allowing me to participate in the patient's care. Please call the nutrition club ambassador GI physician during the after hours with any questions or concerns.
[2024-10-01] MEDS: ROXICODONE ORAL SOLUTION 5 MG PO ×2 (11:10→15:42)
[2024-10-01 11:58] LABS: Urine Albumin Trace (Neg - Trace); Urine Bilirubin Negative (Negative); Urine Character Clear (Clear); Urine Color Yellow; Urine Glucose Negative (Negative); Urine Ketone Negative (Negative); Urine Leukocyte Trace (Negative); Urine Nitrite Negative (Negative); Urine Occult Blood Negative (Negative); Urine Urobilinogen Negative (Neg - 1+); Urine pH 6.5 (5.0-9.0)
[2024-10-01 12:20] LABS: Hematocrit 14.3 % (39.0-52.0); Hemoglobin 4.8 g/dL (13.0-18.0)
[2024-10-01 12:21] LABS: Urine Red Blood Cell 0-2 /HPF (0-2)
[2024-10-01 12:22] LABS: Urine Bacteria Moderate (Negative); Urine White Cell 21-25 /HPF (0-5)
[2024-10-01 12:24] LABS: Urine Squamous Cell 0-2 /LPF (Few)
--- NOTE | 2024-10-01 13:05 | PTCARENOTE ---
hgb 4.8. vss. no new melena. prbc transfusing. Md notified. Will monitor
--- NOTE | 2024-10-01 13:40 | WOUNDNOTE ---
WON RN note: Patient admitted with fever, low magnesium and potassium, severe protein malnutrition.
See H&P for complete history. Lives with at home, has VN.
PMH:Prostate cancer-Turp, squamous cell oral cancer- chemo/radiation/trach, feeding tube.
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 Ulcer extends with of trach plate, no undermining, depth 0.4cm, base yellow. Patient has productive
cough, scant mucous from trach opening. Periwound slightly red, no signs of infection from ulcer. Patient states he had an apt with wound center Sunday but had to cancel due to the snow. Nurse Gavin confirmed no other skin issues at this time.
Patient able to move self in bed.
Appetite: NPO has Peg tube, dietary following.
Pressure redistribution devices in place: Can be on Accumax. If self turning slows, add air overlay. Pillow under calves.
Plan: Today cleaned with saline, patted dry then skin prepped periwound. Patient confirmed no use of oxygen. Cut to fit piece of alginate to fill in wound, covered with Duoderm 2.5x2.5 cut to fit bordered foam. Left fenestrated foam at bedside and
additional alginate for next change, q 3 days and prn soilage. Will confirm orders with hospitalist and updated nurse Gavin. Updated care plan and will follow as needed.
Note to case management of equipment requested for discharge: None.
Recommend follow up at wound care center upon discharge.
--- NOTE | 2024-10-01 16:03 | PHA.VAN.IN ---
Assessment
- Assessment
Renal Function: Appears similar to baseline
Concomitant Antimicrobials: CEFEPIME
- Previous Dosing Experience
Previous Regimen: NONE
AUC Dosing Plan
- Dosing Variables
Dosing Weight (kg): 60
Dosing CrCl (ml/min): 100
Vd coefficient (L/kg): 0.7
- Empiric Dosing
Initial / Loading Dose: 1500MG
Maintenance Regimen: 1GM IV Q12H
Estimated AUC (mcg*h/mL): 569
Estimated Peak (mcg*h/mL): 36.7
Estimated Trough (mcg/ml): 14
Estimated Half Life (H): 7.9
Pharmacokinetics Vancomycin I
- -
Patient Age: 69
Patient Sex: Male
Vancomycin Day #: 1
Indication: Skin And Soft Tissue (PNA)
Requesting Provider: Kameron DENNEY
Pertinent Antimicrobial Allergies:
Allergies
Penicillins Allergy (Verified 09/30/24 21:12)
Rash
Height / Weight:
Height 5 ft 8 in
Actual Weight 60 kg
- Vital Signs / Lab Results
Temp Pulse Resp BP Pulse Ox
98.4 F 77 11 117/68 95
10/01/24 15:28 10/01/24 15:28 10/01/24 15:28 10/01/24 15:28 10/01/24 12:30
Lab Results - Hematology
09/30/24 10/01/24 10/01/24
22:09 06:22 07:07
WBC 14.7 H Cancelled 16.6 H
Lab Results - Chemistry
09/30/24 10/01/24 10/01/24
22:09 06:21 07:07
BUN 38 H Cancelled 43 H
Creatinine 0.6 L Cancelled 0.6 L
Estimated Creat Clear Cancelled
Albumin 3.2 L
01/07/25
22:21
Lactic Acid 0.7
Lab Results - Urine
10/01/24
11:16
Urine Nitrite (Reflex) Negative
Leukocyte Esterase Rfl Trace A
Urine WBC (Reflex) 21-25 A
Ur Squamous Epith Cells 0-2
Urine Bacteria (Reflex) Moderate A
Microbiology Results
10/01/24 07:07 Legionella Urinary Antigen - Final
Urine Negative for Legionella pneumophila Serogroup 1 antigen.
A negative result does not rule out the possiblity of
Legionella infection due to other serogroups or species of
Legionella. Clinical correlation is recommended.
09/30/24 21:21 Influenza Types A & B (ROMMEL) - Final
Nasal Swab Negative for Influenza A & B, NAAT
Negative results must be combined with clinical observations
and patient history.
Nucleic Acid Amplification test (NAAT)performed on the
[employer] platform.
[2024-10-01 16:19] LABS: Hemoglobin 6.9 g/dL (13.0-18.0)
--- NOTE | 2024-10-01 19:21 | PTCARENOTE ---
Received patient from ED via stretcher at approximately 16:30. Per report, patient received 2units PRBCs; follow up H&H 6.06/13. For repeat at 22:00. Patient only had a smear of black stool on arrival but very odorous; no further signs of bleeding
noted. Seen by Dr Hinojosa after arrival to IMU. Lungs diminished and coarse b/l; suctioned by RT this evening via trach and orally. Patient able to cough up sputum. Per report, patient's tongue 'fell out' while in ED; was informed that it was black
and hanging prior to falling out. No bleeding noted. TT sent to Dr Schmidt to make sure he is aware as this nurse could not see documentation of this in the notes. Patient Ox3 able to be understood when speaking; wearing Passy-jason valve. Peg tube
clamped; thick yellow drainage noted at insertion site. Area cleansed with saline and split gauze placed. Ok to use for meds per Dr Hinojosa. Report given to oncoming shift.
--- NOTE | 2024-10-01 19:28 | PTCARENOTE ---
Patient refused robinul and roxicodone.
--- NOTE | 2024-10-01 19:30 | PTCARENOTE ---
Received patient from previous RN with tongue missing from mouth. No bleeding present. Denies any pain. Able to communicate with short sentences. In no apparent distress. Pt is able to recount when his tongue was lost. Call flal within reach.
Previous shift aware.
[2024-10-01] MEDS: NSS (PRESERVATIVE FREE) 10 ML IV (19:39)
[2024-10-01] MEDS: PROTONIX IV 40 MG IV (19:39)
--- NOTE | 2024-10-01 19:48 | PTCARENOTE ---
Pt received from gary RN. Pt AAOx3. NSR on monitor, HR 85. pt on RA satting 95%. Pt using passy maur valve at this time. No BM thus far during this RNs shift. Passing of gas by Pt. Voiding via urinal. Call light in reach. Safe environment
maintained.
[2024-10-01] MEDS: ROXICODONE ORAL SOLUTION 5 MG TUBE (22:53)
[2024-10-02] VITALS (19 sets, daily range): BP systolic 92–128; BP diastolic 56–74
--- NOTE | 2024-10-02 | RESPNOTE ---
Pt suctioned via trach for moderate amount of thick parnell secretions, Pt tolerated SX well, inner cannula changed and Pt was instructed to keep talking valve of for HS. Pt wanted valve on until done watching TV. RN instructed to remove valve if PT
found asleep.
[2024-10-02] MEDS: TYLENOL 650 MG TUBE ×2 (00:02→15:33)
[2024-10-02 00:16] LABS: Hematocrit 17.5 % (39.0-52.0); Hemoglobin 6.2 g/dL (13.0-18.0)
[2024-10-02] MEDS: ROBINUL 1 MG TUBE ×3 (01:00→22:08)
[2024-10-02] MEDS: MAXIPIME 2000 MG IV ×3 (02:06→17:51)
[2024-10-02] MEDS: STERILE WATER FOR INJECTION 10 ML IV ×3 (02:07→17:51)
[2024-10-02] MEDS: ROXICODONE ORAL SOLUTION 5 MG TUBE ×6 (02:07→22:08)
[2024-10-02] MEDS: VANCOCIN 200 IV ×2 (05:47→17:51)
[2024-10-02 06:09] LABS: White Blood Cell Count 8.1 10^3/uL (4.8-10.8)
[2024-10-02 06:13] LABS: Hematocrit 19.2 % (39.0-52.0); Hemoglobin 6.8 g/dL (13.0-18.0); Mean Corp Hgb Conc. 35.4 g/dL (33.0-37.0); Mean Corpuscular Hgb 31.9 pg (27.0-31.0); Mean Corpuscular Volume 90.1 fL (80.0-94.0); Platelet Count 157 10^3/uL (130-400); Red Blood Cell Count 2.13 10^6/uL (4.70-6.10); Red Cell Dist. Width 17.6 % (11.5-14.5)
[2024-10-02 06:26] LABS: Blood Urea Nitrogen 27 mg/dl (9-20); Calcium 7.8 mg/dl (8.4-10.2); Carbon Dioxide 24 mmol/L (22-30); Chloride 104 mmol/L (98-107); Estimated Creatinine Clearance 101 ml/min; Glucose 95 mg/dl (70-99); Potassium 3.3 mmol/L (3.5-5.1); Sodium 133 mmol/L (135-145); eGFR > 60.00
--- NOTE | 2024-10-02 09:02 | PHA.VAN.FU ---
Vancomycin Assessment / Plan
- Assessment
Renal Function: Stable
WBC's are: WNL
Concomitant Antimicrobials: cefepime
- Dosing Plan
Continue: Vanc 1000mg Q12H
- Monitoring Plan
No level(s) ordered at this time: consider levels in next few days
- Follow Up
Pharmacy will continue to follow.
Vancomycin Follow UP
- -
Patient Age: 69
Patient Sex: Male
Vancomycin Day #: 2
Indication: Pulmonary/Respiratory
Requesting Provider: Dr. Vandana Schmidt
Pertinent Antimicrobial Allergies:
Penicillins - Rash
Height / Weight:
Height 5 ft 8 in
Actual Weight 60 kg
Pertinent Past Medical History: SCC tongue; Trach/PEG
- Vital Signs / Lab Results
Temp Pulse Resp BP Pulse Ox
98.2 F 63 20 116/65 96
10/02/24 07:05 10/02/24 06:00 10/02/24 06:00 10/02/24 06:00 10/02/24 06:00
Lab Results - Hematology
09/30/24 10/01/24 10/01/24
22:09 06:22 07:07
WBC 14.7 H Cancelled 16.6 H
10/02/24
05:44
WBC 8.1
Lab Results - Chemistry
09/30/24 10/01/24 10/01/24
22:09 06:21 07:07
BUN 38 H Cancelled 43 H
Creatinine 0.6 L Cancelled 0.6 L
Estimated Creat Clear Cancelled
Albumin 3.2 L
10/02/24
05:44
BUN 27 H
Creatinine 0.6 L
Estimated Creat Clear 101
Albumin
09/30/24
22:21
Lactic Acid 0.7
Lab Results - Urine
10/01/24
11:16
Urine Nitrite (Reflex) Negative
Leukocyte Esterase Rfl Trace A
Ur Squamous Epith Cells 0-2
Microbiology Results
10/01/24 08:56 Blood Culture - Preliminary
Blood/Venous No Growth in 24 hours- Final report to follow
10/01/24 07:07 Legionella Urinary Antigen - Final
Urine Negative for Legionella pneumophila Serogroup 1 antigen.
A negative result does not rule out the possiblity of
Legionella infection due to other serogroups or species of
Legionella. Clinical correlation is recommended.
09/30/24 21:21 Influenza Types A & B (ROMMEL) - Final
Nasal Swab Negative for Influenza A & B, NAAT
Negative results must be combined with clinical observations
and patient history.
Nucleic Acid Amplification test (NAAT)performed on the
[employer] platform.
[2024-10-02] MEDS: LR 1000 IV (09:06)
[2024-10-02] MEDS: PROTONIX IV 40 MG IV ×2 (09:06→20:41)
[2024-10-02] MEDS: NSS (PRESERVATIVE FREE) 10 ML IV ×2 (09:06→20:42)
[2024-10-02 09:27] LABS: Hematocrit 25.5 % (39.0-52.0); Hemoglobin 8.8 g/dL (13.0-18.0)
--- NOTE | 2024-10-02 10:28 | W.PN.ONC ---
Today's Communication / Plan
-
Packed red blood cell transfusion completed hemoglobin 8.8 g/dL
IVF hydration
Radiation suspended
Will require tissue diagnosis or PET scan to confirm suspicion of metastatic disease
Goals of care restorative
Will review palliative systemic options pending results of additional imaging/biopsy
Will follow
Impression
Impression
Tongue cancer status post radiation/chemo
Enlarging lingular mass
Post obstructive PNA
Sepsis in immunocompromise patient with fever/tachycardia/leukocytosis
Melena/acute anemia
DNR
Subjective/Objective
Subjective/Objective
Without new complaints today. Continues to play complain of dry mouth postradiation therapy. No active bleeding noted.
Vital Signs:
Vital Signs
Temp Pulse Resp BP Pulse Ox
98.2 F 63 20 116/65 96
10/02/24 07:05 10/02/24 06:00 10/02/24 06:00 10/02/24 06:00 10/02/24 06:00
HEENT-atraumatic, normocephalic, tracheostomy
Heart-regular rate and rhythm-no murmurs, rubs or gallops
Chest crepitant rales in the base at the bases, expiratory rhonchi
Back without tenderness
Abdomen-soft, nontender, nondistended, no hepatosplenomegaly
Extremities-no cyanosis, clubbing, edema and good peripheral pulses
Integument-intact, no rashes, lesions or ecchymosis
Lab Results:
Laboratory Data
WBC 8.1 10^3/uL (4.8-10.8) 10/02/24 05:44
Hgb 8.8 g/dL (13.0-18.0) L D 10/02/24 09:13
Plt Count 157 10^3/uL (130-400) D 10/02/24 05:44
PT 15.8 Sec (11.4-14.6) H 09/30/24 22:09
INR 1.23 09/30/24 22:09
eGFR > 60.00 10/02/24 05:44
[2024-10-02] MEDS: ROBINUL TUBE ×2 (11:00→17:44)
--- NOTE | 2024-10-02 11:51 | CM ---
CM following re: discharge planning.
Reviewed pt's chart, met with pt.
pt is a 69 year old male, admitted with primary dx of Pneumonia with PMH of tongue cancer status post trach and PEG, status post chemo and now on radiation treatment
Pt lives with spouse in a single two story home with a basement and one step to enter, has a daughter. Pt reports he uses a walker and spouse assists with cooking, cleaning and laundry. Spouse still works during the day, however, pt stated he
is doing alright during the day a Patient has a PEG and is NPO. He is on Jevity 1.5. He also has a suction. Pt has been to SNF at [facility] in the past.
Patient is current with [facility] and pt expressed his desire to return back home with resumptions of [facility]. [facility] liaison following.
Pharmacy: [facility] in [place]
PCP: Kwame Scott.
D/C plan: most likely home with resumptions of [facility] and family support.
CM will follow with discharge plan updates as hospitalization progresses
--- NOTE | 2024-10-02 14:28 | W.PN.PUL.V3 ---
Today's Communication / Plan
-
.
Antibiotics.
Transfuse as needed.
Outpatient pulmonary follow-up if bronchoscopy/lung biopsy requested
Assessment
-
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
of breath found to be febrile with suspected pneumonia-pulmonary consulted for pneumonia 10/01/2024.
Encztgnbw-mscpnunwj-ntnvipaq-possibly postobstructive
Chest pain
Left lingular mass increasing in size
GI bleed
Leukocytosis
Anemia-due to acute blood loss, mildly macrocytic-hemoglobin 5.5
Mild hyponatremia
Hyperglycemia
Hypocalcemia
Conditions present prior to admission:
CAD.
COPD.
Hypertension.
Prostate cancer treated with radiation.
Tongue cancer-squamous cell status post resection, chemo, radiation.
Chronic aspiration.
Tracheostomy tube.
Gastrostomy tube.
Plan
Acute respiratory decompensation likely related to postobstructive pneumonia in a patient who has underlying COPD
Supplemental oxygen as needed-now on room air-99% saturation
Aspiration precautions
Mucolytic's
Routine tracheostomy tube care
Passy-Marilee valve as needed-patient's ENT Dr. Gusman
Nebulizers as needed
Mucus clearing devices
Bronchoscopy if mucous plugging-has not needed
Suspect chest pain related to lung mass
Check cultures
Broad-spectrum antibiotics to cover postobstructive pneumonia-cefepime initiated, received 1 dose of vancomycin
Follow leukocytosis
Monitor hemoglobin
PPI
GI consultation-correspondence reviewed.
Endoscopy/colonoscopy on hold
Transfuse as needed
Monitor blood sugar
Insulin supplementation as needed
Oncology evaluation-correspondence reviewed
Enlarging left lingular mass-not present on PET scan 07/04/2024
Currently no plans at lingular mass biopsy unless oncology feels would help with further management.-If biopsy is requested. Would obtain CT chest ION iin couple weeks after pneumonia clears
Performance status unfortunately quite poor
Comfort a priority
DVT prophylaxis-mechanical while GI bleeding-Lovenox on hold
GI prophylaxis-on pantoprazole twice daily
Nutrition
Early mobilization
Unfortunately prognosis quite poor-reviewed with at the bedside.
Outpatient pulmonary dbykph-vh-fvbqccfgr resolution and potential lung biopsy-robotic, would require repeat CT chest ION
Diagnostic data:
Chest x-ray 05/21/2024-NAD
Chest x-ray 09/30/2024-confluent opacification left lower lobe correlating with possible lingular mass suspicious for neoplasia or carcinoma
CT chest 08/28/2024-no pulmonary embolism, moderate emphysematous changes, no bronchiectasis, 1.9 cm masslike opacification in the lingula increased in size with previous associated metabolic activity consistent with neoplasm
CT chest 09/30/2024-negative for pulmonary embolism mass within the lingula increased in size likely neoplasia, small left pleural effusion and emphysematous changes
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
Subjective Data
-
Date of Service:
Date of Service: October 02, 2024
Chief Complaint: Pulmonary Follow Up and Dyspnea Follow Up
Subjective:
wants ice chips, no increased shortness of breath, no increased secretions, no chest pain or abdominal pain
Review of Systems
General: Other (Per HPI)
Objective Data
Data Reviewed
Vital Signs / I&O:
Vital Signs
Temp Pulse Resp BP Pulse Ox
99 F 59 15 123/61 99
10/02/24 11:05 10/02/24 10:00 10/02/24 10:00 10/02/24 10:00 10/02/24 10:00
Intake and Output
10/01/24 10/02/24 10/03/24
06:59 06:59 06:59
Intake Total 1950 / 1950
Output Total 1400 / 1400 300 / 300
Balance 550 / 550 -300 / -300
SaO2: 99
Labs/Micro/Reports
Lab Data
10/02/24 09:13
10/02/24 05:44
Microbiology
10/01/24 08:56 Blood/Venous Blood Culture - Preliminary
Positive culture in progress
10/01/24 08:56 Blood/Venous Gram Stain - Preliminary
10/01/24 11:16 Urine Urine Culture - Final
10/01/24 03:07 Nose MRSA Screen - Final
No Methicillin Resistant Staphylococcus aureus isolated.
10/01/24 07:07 Urine Legionella Urinary Antigen - Final
Negative for Legionella pneumophila Serogroup 1 antigen.
A negative result does not rule out the possiblity of
Legionella infection due to other serogroups or species of
Legionella. Clinical correlation is recommended.
09/30/24 21:21 Nasal Swab Influenza Types A & B (ROMMEL) - Final
Negative for Influenza A & B, NAAT
Negative results must be combined with clinical observations
and patient history.
Nucleic Acid Amplification test (NAAT)performed on the
[employer] platform.
--- NOTE | 2024-10-02 15:24 | W.PN.HOSP.TC ---
Today's Communication/Plan
-
maintain on abx
f/u cx data
f/u hbg level
start slow TF
Assessment / Plan
Assessment / Plan
1. Tongue cancer/SCC status post radiation/chemo -
-get radiation by Dr. Matta at [facility].
-Follows up with Dr. Galvan locally and had chemo therapy 1 week back.
-Patient have part of anterior tongue sloughed off from dry gangrene, sample in the room. Remaining tongue looks healthy on exam.
2. s/p Tracheostomy
-patient tracheostomy in place with excessive secretion. Continue respiratory care
3. Sepsis in immunocompromise patient
-fever/tachycardia/leukocytosis
-potential source of wound around tracheostomy site, purulent drainage on wound.
-Also left lingular lobe presumed postobstructive pneumonia.
-Respiratory culture to be collected from tracheostomy. Blood culture ordered.
-Started on empiric vancomycin and cefepime.
4. Left lingular lobe mass
-Will require transcutaneous biopsy versus PET scan
-Oncology to decide
5. Melena/acute blood loss anemia
-Total 3 unit of PRBC this admission
-No reported hematemesis/melena
-Discussed with GI and starting patient on trickle tube feed
-Maintain on IV PPI for now
CAD
COPD
Essential HTN
Prostate cancer s/p radiation
DVTPPX - Lovenox
No CPR
Care discussed with oncologist
Total time spent : 54 mins
Anticipated Discharge: 24 - 48 hours
Subjective/Interval History
-
Date of Service: October 02, 2024
Resting comfortably in bed
denies any hematemesis
No repeat episodes of melena
Objective Data
-
Labs:
Laboratory Results
10/02/24 10/02/24
05:44 09:13
WBC 8.1
Hgb 6.8 L* 8.8 L D
Hct 19.2 L* 25.5 L
Plt Count 157 D
Sodium 133 L
Potassium 3.3 L
Chloride 104
Carbon Dioxide 24
BUN 27 H
Creatinine 0.6 L
Glucose 95
Calcium 7.8 L
Vital Signs:
Vital Signs
Temp Pulse Resp BP Pulse Ox
99 F 66 15 122/56 99
10/02/24 11:05 10/02/24 14:00 10/02/24 14:00 10/02/24 14:00 10/02/24 14:28
I&O
10/01/24 10/02/24 10/03/24
06:59 06:59 06:59
Intake Total 1950 / 1950
Output Total 1400 / 1400 300 / 300
Balance 550 / 550 -300 / -300
Review of Systems
-
Respiratory: Reports No Symptoms
Cardiac: Reports No Symptoms
Abdomen/GI: Reports No Symptoms
Physical Exam
-
General: Comfortable
HEENT: Other (Tracheostomy); Negative Oxygen
Cardiac: Regular Rhythm and S1/S2; Negative Murmur or Rub
GI: Soft, Nontender, Nondistended and Peg Tube
Musculoskeletal: No Edema
Neuro: Awake, Alert, Oriented, No Motor Deficits and Nonfocal/Grossly Intact
Psych: Calm
--- NOTE | 2024-10-02 18:18 | W.PN.GI.CBS2 ---
Today's Communication / Plan
-
PLAN:
-Melena, Symptomatic anemia likely related to bleeding from the necrotic tissue from tongue cancer
No active bleeding noted on PEG irrigation. Currently hemoglobin seems to have come up after 2 units of packed red blood cell transfusion
Continue PPI, monitor H&H and transfuse as needed.
Hold off on upper endoscopy given no further active bleeding and anticipate difficult endoscopy given the anatomy in the neck from tongue cancer. Also possible postobstructive pneumonia which can make sedation difficult as well.
Okay to use PEG tube for tube feeds since there is no further bleeding noted.
Continue MiraLAX for history of constipation.
Noted oncology evaluation, goals of care to be discussed.
No further GI workup at this time, will sign off, please call back if needed.
-
Assessment / Plan
-
Pt is a 69yo with hx HTN, renal stone/lithotripsy, prostate CA prior TURP/radiation, and squamous cell of tongue stage III with trach/peg with onset of chest pain. In review with family pt with prostate CA 2 years ago with TURP and radiation
through [place]. He retired with December and around was diagnosed with tongue CA and quit tobacco and ETOH. He was seen on ENT on [facility] then proceeded with trach/peg, chemo with Dr. Galvan and radiation through [place] at [place]. He
stopped radiation due to tongue swelling and chemo with thrombocytopenia. Plan for CT this Sunday for response to therapy and if improved possible surgery vs need for more treatment if noted tumor. On admission there was concern for PNA/trach
drainage with sepsis with fever/leukocytosis. He was noted 1/8 AM with brown stool then vasovagal episode with rapid response then episode of melena. He was also noted this am to have sloughing off of large segment of necrosis from tongue.
Initial hbg was 7.6 with drop to 5.5 after admission with BUN 43. CT on admission with neg PE but mass in lingula with increased size, small effusion, emphysema and sternal fracture. He admits to Motrin use last 1 1/2 months ago but now stopped.
-symptomatic anemia with syncopal episode 10/01
-new onset melena
-stage III squamous cell tongue with sloughing off of tongue on admission, s/p recent chemo/radiation stopped 07/2024
-fever/sepsis/leukocytosis with concern for PNA on admission
-chronic trach with drainage from trach
-chronic peg
-sternal fx per imaging
-narcotic induced constipation
other med problems:
--prostate Ca with prior radiation/TURP
-renal stones/prior lithotripsy
-hip replacement
PLAN:
-Melena, Symptomatic anemia likely related to bleeding from the necrotic tissue from tongue cancer
No active bleeding noted on PEG irrigation. Currently hemoglobin seems to have come up after 2 units of packed red blood cell transfusion
Continue PPI, monitor H&H and transfuse as needed.
Hold off on upper endoscopy given no further active bleeding and anticipate difficult endoscopy given the anatomy in the neck from tongue cancer. Also possible postobstructive pneumonia which can make sedation difficult as well.
Okay to use PEG tube for tube feeds since there is no further bleeding noted.
Continue MiraLAX for history of constipation.
Noted oncology evaluation, goals of care to be discussed.
No further GI workup at this time, will sign off, please call back if needed.
-
Subjective
Subjective
Date of Service: October 02, 2024
Patient without any abdominal pain, no further episodes of melena.
Objective
Data Reviewed
Laboratory Data:
Laboratory Results
10/02/24 09:13
10/02/24 05:44
Laboratory Results
PT 15.8 Sec (11.4-14.6) H 09/30/24 22:09
INR 1.23 09/30/24 22:09
Total Bilirubin 0.6 mg/dl (0.2-1.3) 09/30/24 22:09
AST 18 U/L (17-59) 09/30/24 22:09
ALT 13 U/L (0-50) 09/30/24 22:09
Alkaline Phosphatase 85 U/L (38-126) 09/30/24 22:09
Vital Signs and I&O:
Vital Signs
Temp Pulse Resp BP Pulse Ox
98.8 F 62 17 116/74 95
10/02/24 18:07 10/02/24 18:00 10/02/24 18:00 10/02/24 18:00 10/02/24 18:00
I&O
10/01/24 10/02/24 10/03/24
06:59 06:59 06:59
Intake Total 1950 / 1950
Output Total 1400 / 1400 525 / 525
Balance 550 / 550 -525 / -525
Physical Exam
Physical Exam
GI: Soft and Non Distended
[2024-10-03] VITALS (12 sets, daily range): BP systolic 108–127; BP diastolic 59–69; BMI 19.7
[2024-10-03] MEDS: ROXICODONE ORAL SOLUTION 5 MG TUBE ×6 (01:38→21:52)
[2024-10-03] MEDS: STERILE WATER FOR INJECTION 10 ML IV ×2 (01:38→09:52)
[2024-10-03] MEDS: MAXIPIME 2000 MG IV ×2 (01:38→09:52)
--- NOTE | 2024-10-03 02:11 | PTCARENOTE ---
Caring for patient overnight. aaox3. NSR/SB. Remains RA. Scheduled oxy for throat pain. Ivabx. Tube feeds 20/hr. Meds through tube, no issues. Changed inner cannula. NO other issues at this time.
[2024-10-03] MEDS: VANCOCIN 200 IV (05:18)
[2024-10-03] MEDS: ROBINUL 1 MG TUBE (05:18)
[2024-10-03 06:26] LABS: Hemoglobin 7.2 g/dL (13.0-18.0); Mean Corp Hgb Conc. 34.8 g/dL (33.0-37.0); Mean Corpuscular Hgb 31.3 pg (27.0-31.0); Mean Platelet Volume 8.8 fL (7.4-10.4); Platelet Count 165 10^3/uL (130-400); Red Cell Dist. Width 17.4 % (11.5-14.5); White Blood Cell Count 8.4 10^3/uL (4.8-10.8)
[2024-10-03 06:46] LABS: Blood Urea Nitrogen 16 mg/dl (9-20); Calcium 7.4 mg/dl (8.4-10.2); Carbon Dioxide 25 mmol/L (22-30); Chloride 97 mmol/L (98-107); Estimated Creatinine Clearance 99 ml/min; Glucose 107 mg/dl (70-99); Potassium 2.9 mmol/L (3.5-5.1); Sodium 129 mmol/L (135-145); eGFR > 60.00
[2024-10-03] MEDS: NSS (PRESERVATIVE FREE) 10 ML IV ×2 (07:56→19:19)
[2024-10-03] MEDS: ATIVAN 0.25 MG PO ×2 (07:56→15:19)
[2024-10-03] MEDS: PROTONIX IV 40 MG IV ×2 (07:56→19:21)
[2024-10-03] MEDS: KCL 270 MEQ IV (07:56)
--- NOTE | 2024-10-03 09:07 | W.PN.ONC2 ---
Today's Communication / Plan
-
follow repeat culture, on IV vanco
trend H/H, transfuse Hgb <7 or as needed for sxs anemia
OP follow up upon discharge
Impression
Impression
Sepsis 2/2 post obstructive PNA, Bcx gram stain with gram positive cocci in clusters
symptomatic anemia -ABLA secondary to bleeding tongue vs GI related melena
Tongue cancer status post radiation/chemo, trach, peg
Enlarging lingular mass
Hx prostate Ca with prior radiation/TURP
hyponatremia
hypokalemia
sternal fracture
Plan
Plan
transfuse prn
on PPI, GI no plans for scope at this time
on IV vanco Repeat Bcx
Radiation suspended
Will require tissue diagnosis or PET scan to confirm suspicion of metastatic disease with enlarging lingular mass
Goals of care restorative -Will review palliative systemic options pending results of additional imaging/biopsy
Subjective/Objective
Subjective
no new complaints
Tmax 100.2F
Hgb 5.5->7.2 s/p 3 U PRBC
Vital Signs:
Vital Signs
Temp Pulse Resp BP Pulse Ox
98.3 F 64 17 108/61 95
10/03/24 03:27 10/03/24 04:00 10/03/24 04:00 10/03/24 04:00 10/03/24 04:00
Lab Results:
Laboratory Data
WBC 8.4 10^3/uL (4.8-10.8) 10/03/24 05:20
Hgb 7.2 g/dL (13.0-18.0) L 10/03/24 05:20
Plt Count 165 10^3/uL (130-400) 10/03/24 05:20
PT 15.8 Sec (11.4-14.6) H 09/30/24 22:09
INR 1.23 09/30/24 22:09
eGFR > 60.00 10/03/24 05:20
Physical Exam
HEENT-atraumatic, normocephalic, tracheostomy
Heart-regular rate and rhythm-no murmurs, rubs or gallops
Chest crepitant rales in the base at the bases, expiratory rhonchi
Back without tenderness
Abdomen-soft, nontender, nondistended, no hepatosplenomegaly
Extremities-no cyanosis, clubbing, edema and good peripheral pulses
Integument-intact, no rashes, lesions or ecchymosis
[2024-10-03] MEDS: ROBITUSSIN 200 MG TUBE ×2 (09:52→17:50)
[2024-10-03] MEDS: LIDOCAINE 4% PATCH 1 PATCH TOPICAL (09:53)
--- NOTE | 2024-10-03 10:18 | W.PN.PUL.V3 ---
Today's Communication / Plan
-
Nebulizers
Wean FiO2-humidify
Mucolytic's
Suction if needed
Assessment
-
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
of breath found to be febrile with suspected pneumonia-pulmonary consulted for pneumonia 10/01/2024.
Hvcqqxjbx-bhpkhieay-mjaduzbl-possibly postobstructive
Chest pain
Left lingular mass increasing in size
GI bleed
Leukocytosis
Anemia-due to acute blood loss, mildly macrocytic-hemoglobin 5.5
Mild hyponatremia
Hyperglycemia
Hypocalcemia
Conditions present prior to admission:
CAD.
COPD.
Hypertension.
Prostate cancer treated with radiation.
Tongue cancer-squamous cell status post resection, chemo, radiation.
Chronic aspiration.
Tracheostomy tube.
Gastrostomy tube.
Plan
Acute respiratory decompensation likely related to postobstructive pneumonia in a patient who has underlying COPD
Supplemental oxygen as needed-now on room air-99% saturation
Aspiration precautions
Mucolytic's
Routine tracheostomy tube care
Passy-[place] valve as needed-patient's ENT Dr. Gusman
Nebulizers as needed
Mucus clearing devices
Bronchoscopy if mucous plugging-has not needed
Suspect chest pain related to lung mass
Check cultures
Broad-spectrum antibiotics to cover postobstructive pneumonia-vancomycin and cefepime initiated
Follow leukocytosis
Monitor hemoglobin-7.2-had gone up to 8.8 after transfusion
PPI
GI consultation-correspondence reviewed.
Endoscopy/colonoscopy on hold
Transfuse as needed
Monitor blood sugar
Insulin supplementation as needed
Oncology evaluation-correspondence reviewed
Enlarging left lingular mass-not present on PET scan 07/04/2024
Currently no plans at lingular mass biopsy unless oncology feels would help with further management.-If biopsy is requested. Would obtain CT chest ION in couple weeks after pneumonia clears versus transthoracic needle biopsy-will assist oncology if
biopsy desired
Oncology following-correspondence reviewed-radiation suspended, will require tissue diagnosis or PET scan to confirm suspicion of metastatic disease in the lungs
DVT prophylaxis-mechanical while GI bleeding-Lovenox on hold
GI prophylaxis-on pantoprazole twice daily
Nutrition
Early mobilization
Reviewed with and nursing at the bedside
Outpatient pulmonary pmgcbo-zi-mrghrnpcu resolution and potential lung biopsy-robotic, would require repeat CT chest ION-versus transthoracic needle biopsy if oncology needs tissue
Diagnostic data:
Chest x-ray 05/21/2024-NAD
Chest x-ray 09/30/2024-confluent opacification left lower lobe correlating with possible lingular mass suspicious for neoplasia or carcinoma
CT chest 08/28/2024-no pulmonary embolism, moderate emphysematous changes, no bronchiectasis, 1.9 cm masslike opacification in the lingula increased in size with previous associated metabolic activity consistent with neoplasm
CT chest 09/30/2024-negative for pulmonary embolism mass within the lingula increased in size likely neoplasia, small left pleural effusion and emphysematous changes
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
Subjective Data
-
Date of Service:
Date of Service: October 03, 2024
Chief Complaint: Pulmonary Follow Up and Dyspnea Follow Up
Subjective:
Complained of some mucous plugging, now breathing better, no complaints of shortness of breath at rest, increase secretions, chest pain or abdominal pain
Review of Systems
General: Other (Per HPI)
Objective Data
Data Reviewed
Vital Signs / I&O:
Vital Signs
Temp Pulse Resp BP Pulse Ox
98.3 F 64 17 108/61 95
10/03/24 03:27 10/03/24 04:00 10/03/24 04:00 10/03/24 04:00 10/03/24 04:00
Intake and Output
10/02/24 10/03/24 10/04/24
06:59 06:59 06:59
Intake Total 1950 / 1950
Output Total 1400 / 1400 1125 / 1125 200 / 200
Balance 550 / 550 -1125 / -1125 -200 / -200
SaO2: 95
Physical Exam
General: Respiratory Distress (n) and Comfortable
HEENT: Normocephalic, Anicteric, Moist Mucous Membranes and Tracheotomy
Cardiovascular: Regular Rhythm
Respiratory: Wheeze (n), Crackles (Basilar), Rhonchi (Few expiratory), Non-Labored Respirations, Accessory Resp Muscle Use and Stridor (n)
GI: Soft, Non Distended and Non Tender
Neurology: Awake, Alert and No Motor Deficits
Skin: Warm, Good Color, Cyanosis (n), Jaundice (n) and Rash (n)
Labs/Micro/Reports
Lab Data
10/03/24 05:20
Microbiology
10/01/24 08:56 Blood/Venous Blood Culture - Preliminary
Positive culture in progress
10/01/24 08:56 Blood/Venous Gram Stain - Preliminary
10/01/24 11:16 Urine Urine Culture - Final
10/01/24 03:07 Nose MRSA Screen - Final
No Methicillin Resistant Staphylococcus aureus isolated.
10/01/24 07:07 Urine Legionella Urinary Antigen - Final
Negative for Legionella pneumophila Serogroup 1 antigen.
A negative result does not rule out the possiblity of
Legionella infection due to other serogroups or species of
Legionella. Clinical correlation is recommended.
09/30/24 21:21 Nasal Swab Influenza Types A & B (ROMMEL) - Final
Negative for Influenza A & B, NAAT
Negative results must be combined with clinical observations
and patient history.
Nucleic Acid Amplification test (NAAT)performed on the
[employer] platform.
--- NOTE | 2024-10-03 11:50 | VNURNOTE ---
[facility] liaison spoke with patient's spouse. Confirmed they would like resumption of [facility]. DME in place through [employer]. Prior to admit, pt was on Jevity 1.5 boluses at home and trach #8 [facility]. [facility] liaison reached out to dietitian. No
changes to home TF bolus regime at this time. Referral updated. Patient uses a recliner and has home suction. No 02 at home, pt had it removed months ago per spouse. [facility] resumption accepted in [facility]. Will continue to monitor hospitalization
course.
--- NOTE | 2024-10-03 12:02 | PTCARENOTE ---
Patient AAOx3, very anxious, see PRN given. at bedside. Patient c/o trouble breathing, suctioned trach and changed inner cannula with relief. Thick parnell sputum. Robitussin added. VSS. NSR. RA. PEG care done. Patient tolerating tube feeds at
increased rate (30ml/hr with 25ml water flush). Patient making needs known. Will closely monitor.
[2024-10-03] MEDS: TYLENOL 650 MG TUBE (12:22)
[2024-10-03] MEDS: ROBINUL TUBE ×2 (12:22→12:23)
--- NOTE | 2024-10-03 14:29 | WOUNDNOTE ---
PROXIMAL NECK UNDER JAW
--- NOTE | 2024-10-03 14:30 | WOUNDNOTE ---
PROXIMAL NECK UNDER JAW
--- NOTE | 2024-10-03 14:32 | WOUNDNOTE ---
WON RN NOTE: Followed up today with assistance from DANIELLE Mtz. Patient has Trach with Passy-Marilee valve. R proximal neck under jaw, new full thickness ulcer noticed today, missed when 1st assessed. Family confirmed this ulcer is not new. Suspect
ulcer is from neck laying on trach tube, patient keeps neck tucked and has difficulty tilting head back for long periods of time. Neck ulcer under trach plate remains the same size. No purulent drainage or odor from either wound. Dressing that was
applied on Sunday remained intact, moderate drainage on alginate. Patient states dressing was too bulky and tight causing irritation. Patient coughing up large amt's of secretions from trach and orally, no leakage of mucous around trach. Nurse
exchanged trach internal tube due to large amt of secretions built up. Today applied alginate into base of ulcers, skin prepped periwound's then covered area with hydrocolloid thin. Fenestrated non adherent foam placed under trach plate and under
collar. Cut piece of silicone foam placed over proximal neck dressing to prevent rubbing. Patient states dressing more comfortable. Teaching regarding wound care done with nurse at bedside. Patient able to turn self to side, sacrum and heels are
intact. Supplies in and will follow as needed.
[2024-10-03 14:50] LABS: Hematocrit 23.5 % (39.0-52.0); Hemoglobin 8.1 g/dL (13.0-18.0)
--- NOTE | 2024-10-03 15:22 | PHA.VAN.FU ---
Vancomycin Assessment / Plan
- Assessment
Renal Function: Stable
WBC's are: WNL
In the past 24 hrs, patient has been: Afebrile
Concomitant Antimicrobials: cefepime
- Dosing Plan
Continue: Vanc 1000mg Q12H
- Monitoring Plan
No level(s) ordered at this time: consider levels in next few days
- Follow Up
Pharmacy will continue to follow.
Vancomycin Follow UP
- -
Patient Age: 69
Patient Sex: Male
Vancomycin Day #: 3
Indication: Pulmonary/Respiratory
Requesting Provider: Dr. Vandana Schmidt
Pertinent Antimicrobial Allergies:
Penicillins - Rash
Height / Weight:
Height 5 ft 8 in
Actual Weight 58.7 kg
Pertinent Past Medical History: SCC tongue; Trach/PEG
- Vital Signs / Lab Results
Temp Pulse Resp BP Pulse Ox
99.2 F 65 23 127/66 95
10/03/24 12:25 10/03/24 10:00 10/03/24 08:00 10/03/24 10:00 10/03/24 10:18
Lab Results - Hematology
09/30/24 10/01/24 10/01/24
22:09 06:22 07:07
WBC 14.7 H Cancelled 16.6 H
10/02/24 10/03/24
05:44 05:20
WBC 8.1 8.4
Lab Results - Chemistry
09/30/24 10/01/24 10/01/24
22:09 06:21 07:07
BUN 38 H Cancelled 43 H
Creatinine 0.6 L Cancelled 0.6 L
Estimated Creat Clear Cancelled
Albumin 3.2 L
10/02/24 10/03/24
05:44 05:20
BUN 27 H 16
Creatinine 0.6 L 0.5 L
Estimated Creat Clear 101 99
Albumin
09/30/24
22:21
Lactic Acid 0.7
Microbiology Results
10/01/24 08:56 Blood Culture - Preliminary
Blood/Venous Coagulase neg. staphylococcus
Additional testing on request
Gram Stain - Preliminary
10/01/24 11:16 Urine Culture - Final
Urine
10/01/24 03:07 MRSA Screen - Final
Nose No Methicillin Resistant Staphylococcus aureus isolated.
--- NOTE | 2024-10-03 15:33 | W.PN.HOSP.TC ---
Today's Communication/Plan
-
Change antibiotic to levofloxacin/doxycycline
Robitussin added
Chest x-ray 2 views
Assessment / Plan
Assessment / Plan
1. Tongue cancer/SCC status post radiation/chemo
-Follows up with Dr. Cole coronel and had chemo therapy 1 week back.
-Patient have part of anterior tongue sloughed off from dry gangrene, sample in the room. Remaining tongue looks healthy on exam.
-Discussed with Dr. Anglin who recommended repeat PET scan, will skip CT neck that was planned outpt as it is redundant imaging.
2. s/p Tracheostomy
-patient tracheostomy in place with excessive secretion. Continue respiratory care
-Robitussin through PEG tube ordered
-Repeat CXR ordered.
3. Sepsis in immunocompromise patient
-fever/tachycardia/leukocytosis
-potential source of wound around tracheostomy site, purulent drainage on wound.
-Also left lingular lobe presumed postobstructive pneumonia vs met
-Respiratory culture to be collected from tracheostomy. Blood culture ordered.
-Discarding vancomycin/cefepime to levofloxacin doxycycline. Patient is allergic to penicillin.
4. Left lingular lobe mass
-Will require transcutaneous biopsy versus PET scan, oncology to decide.
5. Melena/acute blood loss anemia
-Total 3 unit of PRBC this admission
-No reported hematemesis/melena
-Discussed with GI and starting patient on trickle tube feed
-Maintain on IV PPI for now
CAD
COPD
Essential HTN
Prostate cancer s/p radiation
DVTPPX - Lovenox
No CPR
Care discussed with oncologist/pulmo
Total time spent : 52 mins
Anticipated Discharge: 24 - 48 hours
Subjective/Interval History
-
Date of Service: October 03, 2024
Increase secretions from trach tube
afebrile in night
Objective Data
-
Labs:
Laboratory Results
10/03/24 10/03/24
05:20 14:40
WBC 8.4
Hgb 7.2 L 8.1 L
Hct 21.0 L 23.5 L
Plt Count 165
Sodium 129 L
Potassium 2.9 L
Chloride 97 L
Carbon Dioxide 25
BUN 16
Creatinine 0.5 L
Glucose 107 H
Calcium 7.4 L
Vital Signs:
Vital Signs
Temp Pulse Resp BP Pulse Ox
99.2 F 65 23 127/66 95
10/03/24 12:25 10/03/24 10:00 10/03/24 08:00 10/03/24 10:00 10/03/24 10:18
I&O
10/02/24 10/03/24 10/04/24
06:59 06:59 06:59
Intake Total 1950 / 1950
Output Total 1400 / 1400 1125 / 1125 200 / 200
Balance 550 / 550 -1125 / -1125 -200 / -200
Review of Systems
-
Respiratory: Reports Cough; Denies Trouble Breathing
Cardiac: Reports No Symptoms
Abdomen/GI: Reports No Symptoms
Physical Exam
-
General: Comfortable
HEENT: Other (Tracheostomy); Negative Oxygen
Cardiac: Regular Rhythm and S1/S2; Negative Murmur or Rub
GI: Soft, Nontender, Nondistended and Peg Tube
Musculoskeletal: No Edema
Neuro: Awake, Alert, Oriented, No Motor Deficits and Nonfocal/Grossly Intact
Psych: Calm
[2024-10-03] MEDS: LEVAQUIN 750 MG TUBE (17:49)
[2024-10-03] MEDS: STERILE WATER FOR INJECTION IV (17:50)
[2024-10-03] MEDS: VIBRAMYCIN 100 MG TUBE (19:23)
[2024-10-04] VITALS (12 sets, daily range): BP systolic 99–131; BP diastolic 54–74; BMI 19.4
[2024-10-04] MEDS: STERILE WATER FOR INJECTION IV ×4 (01:48→21:43)
[2024-10-04] MEDS: ROXICODONE ORAL SOLUTION 5 MG TUBE ×5 (01:48→22:02)
[2024-10-04] MEDS: TYLENOL 650 MG TUBE ×3 (01:49→15:29)
[2024-10-04 04:17] LABS: Hemoglobin 8.1 g/dL (13.0-18.0); Mean Corp Hgb Conc. 35.2 g/dL (33.0-37.0); Mean Corpuscular Hgb 31.3 pg (27.0-31.0); Mean Corpuscular Volume 88.8 fL (80.0-94.0); Mean Platelet Volume 8.8 fL (7.4-10.4); Platelet Count 160 10^3/uL (130-400); Red Blood Cell Count 2.59 10^6/uL (4.70-6.10); Red Cell Dist. Width 17.3 % (11.5-14.5); White Blood Cell Count 10.1 10^3/uL (4.8-10.8)
--- NOTE | 2024-10-04 04:30 | PTCARENOTE ---
Pt received at beginning of shift. AAOx3. Flat affect. Very garbled speech. Copious secretions in mouth, pt self [place] or uses tissue. TF infusing to peg tube at 30ml/hr with 25ml/hr water flush. Tube patent with minimal residual. Pt not
permitting care to neck or trach care. 'want it left alone.' Using urinal in bed. VSS. temp 100.3 medicated with Tylenol per pt request. SR on CM. POX RA 91-94%. RSQPort with minimal blood return. AM labs obtained peripherally. Rest of assessment
unchanged from previous. Maintained on Q2hr turns. Call fall remains within reach. Will continue to monitor.
[2024-10-04 04:37] LABS: Blood Urea Nitrogen 12 mg/dl (9-20); Calcium 7.5 mg/dl (8.4-10.2); Carbon Dioxide 24 mmol/L (22-30); Chloride 98 mmol/L (98-107); Estimated Creatinine Clearance 98 ml/min; Glucose 126 mg/dl (70-99); Sodium 129 mmol/L (135-145); eGFR > 60.00
[2024-10-04] MEDS: KCL ELIXIR 40 MEQ TUBE (05:11)
--- NOTE | 2024-10-04 05:15 | PTCARENOTE ---
K+ 3.0 this am. Analisa CHESTER on floor and made aware. Order entered for KCL elixir. Pt received as ordered.
[2024-10-04] MEDS: ROBITUSSIN 200 MG TUBE ×3 (07:46→22:02)
[2024-10-04] MEDS: LEVAQUIN 750 MG TUBE (07:46)
[2024-10-04] MEDS: PROTONIX IV 40 MG IV ×2 (07:47→20:23)
[2024-10-04] MEDS: LIDOCAINE 4% PATCH 1 PATCH TOPICAL (07:47)
[2024-10-04] MEDS: VIBRAMYCIN 100 MG TUBE ×2 (07:47→20:23)
[2024-10-04] MEDS: NSS (PRESERVATIVE FREE) 10 ML IV ×2 (07:48→20:23)
[2024-10-04] MEDS: TRANSDERM-SCOP TRANSDERM (07:49)
--- NOTE | 2024-10-04 08:45 | PTCARENOTE ---
Addendum entered by Diego Hays RN 10/04/24 19:48:
1345: PEG replaced at bedside by GI team. XR verified placement. Tube feeds and medications resumed. VSS. Patient with no complaints. at bedside. Will closely monitor.
Original Note:
Patients PEG tube accidentally pulled out upon transfer to [facility]. Wells catheter placed in stoma with no difficulty. No bleeding or discomfort. GI consulted to replace PEG tube. Patient c/o excessive sputum today. PRN robitussin given. VSS.
Trach care performed. Will closely monitor.
--- NOTE | 2024-10-04 08:51 | W.PN.PUL3 ---
Today's Communication / Plan
-
Doing well on RA, trach with PMV in place
On abx for PNA, repeat CXR today
Dislodged PEG, for replacement per team
Otherwise, encouraged OOB/PT as tolerated
Can arrange OP w/u for biopsy if this is needed per Onc
No further recs from our standpoint, we will sign off at this time. Please call with questions.
Assessment
-
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
of breath found to be febrile with suspected pneumonia-pulmonary consulted for pneumonia 10/01/2024.
Tbivcjbkk-qaaqgikvc-jphqkpoi-possibly postobstructive
Chest pain
Left lingular mass increasing in size
GI bleed
Leukocytosis
Anemia-due to acute blood loss, mildly macrocytic-hemoglobin 5.5
Mild hyponatremia
Hyperglycemia
Hypocalcemia
Conditions present prior to admission:
CAD.
COPD/emphysema
Hypertension.
Prostate cancer treated with radiation.
Tongue cancer-squamous cell status post resection, chemo, radiation.
Chronic aspiration.
Tracheostomy tube.
Gastrostomy tube.
Plan
Supplemental oxygen as needed-now on room air via trach--95-99% saturation
Aspiration precautions
Mucolytic's
Routine tracheostomy tube care
Passy-Marilee valve as needed-patient's ENT Dr. Gusman
Nebulizers as needed
Mucus clearing devices
Bronchoscopy if mucous plugging-has not needed
Suspect chest pain/pleurisy related to lung mass, pain control
Check cultures
Broad-spectrum antibiotics to cover postobstructive pneumonia-vancomycin and cefepime initiated
Follow leukocytosis
Monitor hemoglobin-7.2-had gone up to 8.8 after transfusion
PPI
GI consultation-correspondence reviewed.
Endoscopy/colonoscopy on hold
Transfuse as needed
Monitor blood sugar
Insulin supplementation as needed
Oncology evaluation-correspondence reviewed
Enlarging left lingular mass-not present on PET scan 07/04/2024
Currently no plans at lingular mass biopsy unless oncology feels would help with further management-If biopsy is requested.
Would obtain CT chest ION in couple weeks after pneumonia clears versus transthoracic needle biopsy-will assist oncology if biopsy desired
Oncology following-correspondence reviewed-radiation suspended, will require tissue diagnosis or PET scan to confirm suspicion of metastatic disease in the lungs
This can be arranged as OP
DVT prophylaxis-mechanical while GI bleeding-Lovenox on hold
GI prophylaxis-on pantoprazole twice daily
Nutrition
Early mobilization
Reviewed with and nursing at the bedside
Outpatient pulmonary loyjms-jc-ibaxjasts resolution and potential lung biopsy-robotic, w/ repeat CT chest ION-versus transthoracic needle biopsy if oncology needs tissue
Otherwise, discharge planning if improving from PNA perspective
Diagnostic Data
Chest x-ray 05/21/2024-NAD
Chest x-ray 09/30/2024-confluent opacification left lower lobe correlating with possible lingular mass suspicious for neoplasia or carcinoma
CT chest 08/28/2024-no pulmonary embolism, moderate emphysematous changes, no bronchiectasis, 1.9 cm masslike opacification in the lingula increased in size with previous associated metabolic activity consistent with neoplasm
CT chest 09/30/2024-negative for pulmonary embolism mass within the lingula increased in size likely neoplasia, small left pleural effusion and emphysematous changes
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
Total time spent on this consultation/encounter __51__ minutes which includes review of history, physical exam, medications, laboratory data, personal review of imaging, extensive review of outpatient records, discussion with care team and
respiratory therapy.
Subjective Data
-
Date of Service:
Date of Service: October 04, 2024
Chief Complaint: Pulmonary Follow Up and Dyspnea Follow Up
Subjective:
Doing well on RA, trach collar capped, speaking
Complains of L sided chest pain with inspiration
Discomfort at L abd quadrant
Objective Data
Data Reviewed
Vital Signs / I&O / Oxygen:
Vital Signs
Temp Pulse Resp BP Pulse Ox
99.0 F 62 17 117/63 95
10/04/24 07:35 10/04/24 06:00 10/04/24 06:00 10/04/24 06:00 10/04/24 06:00
Intake and Output
10/03/24 10/04/24 10/05/24
06:59 06:59 06:59
Intake Total 860 / 860
Output Total 1125 / 1125 2150 / 2150
Balance -1125 / -1125 -1290 / -1290
SaO2 95
Physical Exam
General: Respiratory Distress (n) and Comfortable
HEENT: Normocephalic, Anicteric, Moist Mucous Membranes and Tracheotomy
Cardiovascular: Regular Rhythm
Respiratory: Wheeze (n), Crackles (Basilar), Rhonchi (Few expiratory), Non-Labored Respirations, Accessory Resp Muscle Use and Stridor (n)
GI: Soft, Non Distended, Non Tender and Feeding Tube
Neurology: Awake, Alert and No Motor Deficits
Skin: Warm, Good Color, Cyanosis (n), Jaundice (n) and Rash (n)
Labs/Micro/Reports
Lab Data
10/04/24 03:53
10/04/24 03:53
Microbiology
10/01/24 08:56 Blood/Venous Blood Culture - Preliminary
Coagulase neg. staphylococcus
Additional testing on request
10/01/24 08:56 Blood/Venous Gram Stain - Preliminary
10/01/24 11:16 Urine Urine Culture - Final
10/01/24 03:07 Nose MRSA Screen - Final
No Methicillin Resistant Staphylococcus aureus isolated.
10/01/24 07:07 Urine Legionella Urinary Antigen - Final
Negative for Legionella pneumophila Serogroup 1 antigen.
A negative result does not rule out the possiblity of
Legionella infection due to other serogroups or species of
Legionella. Clinical correlation is recommended.
[2024-10-04] MEDS: ROXICODONE ORAL SOLUTION TUBE ×2 (10:17→10:21)
[2024-10-04] MEDS: DILAUDID 0.5 MG IV (10:50)
[2024-10-04] MEDS: ATIVAN 0.5 MG IV (12:34)
[2024-10-04] MEDS: NSS (PRESERVATIVE FREE) 0.25 ML IV (12:35)
[2024-10-04 12:43] LABS: Glucose - Point of Care 98 mg/dl (70-99)
--- NOTE | 2024-10-04 14:07 | W.PN.UPDATE ---
Update Note
Progress Note Update
Patient PEG fell out. Wells placed by RN to maintain patency. Replaced with 16F Enfit balloon replacement PEG without difficultly. Bumper at 3.5 cm from skin. Will send for XR tube study. Discussed with RN. If tube placment confirmed ok to use PEG.
--- NOTE | 2024-10-04 14:52 | W.PN.HOSP.TC ---
Today's Communication/Plan
-
see note
Assessment / Plan
Assessment / Plan
1. Tongue cancer/SCC status post radiation/chemo
-Follows up with Dr. Cole coronel and had chemo therapy 1 week back.
-Patient have part of anterior tongue sloughed off from dry gangrene, sample in the room. Remaining tongue looks healthy on exam.
-Discussed with Dr. Anglin who recommended repeat PET scan, will skip CT neck that was planned outpt as it is redundant imaging.
2. s/p Tracheostomy
s/p PEG tube
-patient tracheostomy in place with excessive secretion. Continue respiratory care
-Robitussin through PEG tube ordered
-Repeat CXR pending
-Patient PEG tube got pulled out oin morning today during transfer of bed , GI help requested for replacement of PEG tube.
3. Sepsis in immunocompromise patient
-fever/tachycardia/leukocytosis
-potential source of wound around tracheostomy site, purulent drainage on wound.
-Also left lingular lobe presumed postobstructive pneumonia vs met
-Respiratory culture to be collected from tracheostomy. Blood culture ordered.
-Discarding vancomycin/cefepime to levofloxacin doxycycline. Patient is allergic to penicillin.
4. Left lingular lobe mass
-Will require transcutaneous biopsy versus PET scan, oncology to decide.
5. Melena/acute blood loss anemia
-Total 3 unit of PRBC this admission
-No reported hematemesis/melena
-Discussed with GI and starting patient on trickle tube feed
-Maintain on IV PPI for now
-Hbg 8.1 now, continue monitor
6. Hypokalemia
-replace prn
7. Hyponatremia
-suspected euvolemic from malignancy vs pna.
CAD
COPD
Essential HTN
Prostate cancer s/p radiation
DVTPPX - Lovenox
No CPR
Care discussed with sitecore developer
Total time spent : 53 mins
Anticipated Discharge: 24 - 48 hours
Subjective/Interval History
-
Date of Service: October 04, 2024
Continue to have increased secretions through tracheostomy site
No hypoxia
PEG tube accidentally got pulled out during transport/transfer of bed
Objective Data
-
Labs:
Laboratory Results
10/04/24
03:53
WBC 10.1
Hgb 8.1 L
Hct 23.0 L
Plt Count 160
Sodium 129 L
Potassium 3.0 L
Chloride 98
Carbon Dioxide 24
BUN 12
Creatinine 0.5 L
Glucose 126 H
Calcium 7.5 L
Vital Signs:
Vital Signs
Temp Pulse Resp BP Pulse Ox
100.3 F 69 13 113/65 95
10/04/24 10:55 10/04/24 12:00 10/04/24 12:00 10/04/24 12:00 10/04/24 12:00
I&O
10/03/24 10/04/24 10/05/24
06:59 06:59 06:59
Intake Total 860 / 860
Output Total 1125 / 1125 2150 / 2150
Balance -1125 / -1125 -1290 / -1290
Review of Systems
-
Respiratory: Denies Cough or Trouble Breathing
Cardiac: Reports No Symptoms
Abdomen/GI: Reports No Symptoms
Physical Exam
-
General: Comfortable
HEENT: Other (Tracheostomy); Negative Oxygen
Cardiac: Regular Rhythm and S1/S2; Negative Murmur or Rub
GI: Soft, Nontender, Nondistended and Peg Tube
Musculoskeletal: No Edema
Neuro: Awake, Alert, Oriented, No Motor Deficits and Nonfocal/Grossly Intact
Psych: Calm
[2024-10-04] MEDS: TRANSDERM-SCOP 1 PATCH TRANSDERM (15:30)
[2024-10-04] MEDS: ATIVAN 0.25 MG PO (18:35)
[2024-10-05] VITALS (12 sets, daily range): BP systolic 93–122; BP diastolic 57–77
[2024-10-05] MEDS: ROXICODONE ORAL SOLUTION 5 MG TUBE ×3 (02:00→09:04)
[2024-10-05] MEDS: ATIVAN 0.25 MG PO ×3 (02:00→15:53)
[2024-10-05] MEDS: TYLENOL 650 MG TUBE ×2 (04:59→20:12)
[2024-10-05 05:43] LABS: Blood Urea Nitrogen 14 mg/dl (9-20); Calcium 7.5 mg/dl (8.4-10.2); Carbon Dioxide 25 mmol/L (22-30); Chloride 96 mmol/L (98-107); Estimated Creatinine Clearance 98 ml/min; Glucose 115 mg/dl (70-99); Potassium 3.6 mmol/L (3.5-5.1); Sodium 130 mmol/L (135-145); eGFR > 60.00
[2024-10-05 05:45] LABS: Hematocrit 23.9 % (39.0-52.0); Hemoglobin 8.3 g/dL (13.0-18.0); Mean Corp Hgb Conc. 34.7 g/dL (33.0-37.0); Mean Corpuscular Hgb 31.4 pg (27.0-31.0); Mean Corpuscular Volume 90.5 fL (80.0-94.0); Mean Platelet Volume 9.3 fL (7.4-10.4); Platelet Count 207 10^3/uL (130-400); Red Blood Cell Count 2.64 10^6/uL (4.70-6.10); Red Cell Dist. Width 17.3 % (11.5-14.5)
--- NOTE | 2024-10-05 05:50 | PTCARENOTE ---
No acute events overnight. T max 100.1. Refused trach care.
[2024-10-05] MEDS: LEVAQUIN 750 MG TUBE (09:05)
[2024-10-05] MEDS: LIDOCAINE 4% PATCH TOPICAL ×2 (09:05→18:11)
[2024-10-05] MEDS: NSS (PRESERVATIVE FREE) 10 ML IV ×2 (09:05→20:11)
[2024-10-05] MEDS: PROTONIX IV 40 MG IV ×2 (09:05→20:11)
[2024-10-05] MEDS: STERILE WATER FOR INJECTION IV ×3 (09:06→18:02)
[2024-10-05] MEDS: VIBRAMYCIN 100 MG TUBE ×2 (09:31→20:11)
[2024-10-05] MEDS: TORADOL 15 MG IV (09:39)
[2024-10-05] MEDS: ROXICODONE 5 MG TUBE (09:39)
--- NOTE | 2024-10-05 13:31 | W.PN.HOSP.TC ---
Today's Communication/Plan
-
pain control
continue empiric abx
discharge planning in 24-48 hrs
Assessment / Plan
Assessment / Plan
Chest US
Opacification of the posterior left chest on prior radiographs related to combination of small volume left pleural fluid and atelectatic left lower lung. Visible pleural fluid mildly complex with some internal septations. Atelectatic lung is visible
on all of the provided images, with no satisfactory window for thoracentesis visible on this examination. Known mass within the lingula is not well delineated. 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
calcified splenic artery aneurysm.

1. Tongue cancer/SCC status post radiation/chemo
-Follows up with Dr. Cole coronel and had chemo therapy 1 week back.
-Patient have part of anterior tongue sloughed off from dry gangrene, sample in the room. Remaining tongue looks healthy on exam.
-Discussed with Dr. Anglin who recommended repeat PET scan, will skip CT neck that was planned outpt as it is redundant imaging.
2. s/p Tracheostomy
s/p PEG tube
-patient tracheostomy in place with excessive secretion. Continue respiratory care
-Robitussin through PEG tube ordered
3. Sepsis in immunocompromise patient
-fever/tachycardia/leukocytosis
-potential source of wound around tracheostomy site, purulent drainage on wound.
-Also left lingular lobe presumed postobstructive pneumonia vs met
-Respiratory culture to be collected from tracheostomy. Blood culture ordered.
-Discarding vancomycin/cefepime to levofloxacin doxycycline. Patient is allergic to penicillin.
4. Left lingular lobe mass
-Will require transcutaneous biopsy versus PET scan, oncology to decide.
5. Melena/acute blood loss anemia
-Total 3 unit of PRBC this admission
-No reported hematemesis/melena
-Discussed with GI and starting patient on trickle tube feed
-Maintain on IV PPI for now
-Hbg 8.1 now, continue monitor
6. Hypokalemia
-replace prn
7. Hyponatremia
-suspected euvolemic from malignancy vs pna.
8. Left-sided complex effusion
Pleuritic pain
-Patient having significant left-sided pleuritic pain. X-ray showed small effusion developing
-Chest ultrasound showed small effusion not amenable to drainage
-increase pain medication dose
CAD
COPD
Essential HTN
Prostate cancer s/p radiation
DVTPPX - Lovenox
No CPR
Total time spent : 52 mins
I personally saw and examined the patient.
I have reviewed all diagnostic interpretations and treatment plans as written.
Time includes patient management by me, time spent at the patients bedside, time to review lab and imaging results, discussing patient care, documentation in the medical record, and time spent with the family or caregiver and discussing care plan
with RN/Consultants.
Anticipated Discharge: 24 - 48 hours
Subjective/Interval History
-
Date of Service: October 05, 2024
Having some left-sided pain/discomfort
Afebrile overnight
Not hypoxic overnight
Objective Data
-
Labs:
Laboratory Results
10/05/24
04:49
WBC 15.0 H
Hgb 8.3 L
Hct 23.9 L
Plt Count 207 D
Sodium 130 L
Potassium 3.6
Chloride 96 L
Carbon Dioxide 25
BUN 14
Creatinine 0.5 L
Glucose 115 H
Calcium 7.5 L
Vital Signs:
Vital Signs
Temp Pulse Resp BP Pulse Ox
99 F 74 13 103/60 97
10/05/24 11:21 10/05/24 06:00 10/05/24 06:00 10/05/24 06:00 10/05/24 10:44
I&O
10/04/24 10/05/24 10/06/24
06:59 06:59 06:59
Intake Total 860 / 860 660 / 660
Output Total 2150 / 2150 800 / 800
Balance -1290 / -1290 -140 / -140
Review of Systems
-
Respiratory: Reports No Symptoms
Cardiac: Reports No Symptoms
Abdomen/GI: Reports No Symptoms
Physical Exam
-
General: Comfortable
HEENT: Other (Tracheostomy); Negative Oxygen
Cardiac: Regular Rhythm and S1/S2; Negative Murmur
GI: Soft, Nontender, Nondistended and Peg Tube
Musculoskeletal: No Edema
Neuro: Awake, Alert, Oriented, No Motor Deficits and Nonfocal/Grossly Intact
Psych: Calm
[2024-10-05] MEDS: ROBITUSSIN 200 MG TUBE (14:07)
[2024-10-05] MEDS: ROXICODONE ORAL SOLUTION 10 MG TUBE ×2 (14:07→18:04)
[2024-10-05] MEDS: SENNA SYRUP 8.8 MG PO (18:03)
--- NOTE | 2024-10-05 19:15 | PTCARENOTE ---
Patient alert and oriented x 3, irritable but cooperative with encouragement and reassurance. Pt initially refusing most care but slowly agreeable to trach care, oral care, hygiene. He has large amount oral secretions, thick parnell, small amount thick
parnell from trach. Pt suctioned x1 this shift. Inner cannula changed.
--- NOTE | 2024-10-05 20:00 | PTCARENOTE ---
Patient received lying in bed watching football on TV. He is awake and alert, without any apparent signs of distress or discomfort. However, when he coughs he winces. He c/o left sided anterior chest/flank pain. He also c/o neck discomfort
01/31--Tylenol given for now as he is not due for prn oxycodone until 2200. BBS are diminished t/o with faint scattered crackles t/o. #[address] with trach ties, passy jason valve in place. Dressings noted underneath trach site, right neck, and
under mandible. Jevity 1.5 TF infusing via PEG, tolerating well with no residual. [facility] portacath is accessed. Abdomen is round but soft. Patient c/o constipation--he was given senna syrup earlier today. S1S2 regular with soft murmur. SR on CM.
Patient is discouraged regarding current health situation and what he has gone through over the last 5 months. Emotional support and encouragement given.
--- NOTE | 2024-10-05 22:00 | PTCARENOTE ---
Patient is requesting Ativan for anxiety and Oxycodone for pain rating pain 7/10 at neck and left flank/anterior chest. Medications given, see MAR. Patient voids marlen urine per urinal without difficulty.
[2024-10-06] VITALS (15 sets, daily range): BP systolic 97–121; BP diastolic 55–65; PULSE 79–81; O2SAT 94–95
[2024-10-06] MEDS: STERILE WATER FOR INJECTION IV ×4 (01:15→21:29)
--- NOTE | 2024-10-06 04:00 | PTCARENOTE ---
Patient appears to be sleeping comfortably when undisturbed with eyes closed, lying still, respirations nonlabored. VSS. No complaints offered.
[2024-10-06] MEDS: SENOKOT-S 1 TABLET TUBE (04:18)
[2024-10-06] MEDS: TYLENOL 650 MG TUBE (04:19)
--- NOTE | 2024-10-06 04:45 | PTCARENOTE ---
Patient is refusing am hygiene cares. However, mouth care provided. He is also refusing trach care at this time. Am labs drawn. Tylenol given for low grade temp 100.2F. Senokot S given for constipation. Patient can become easily agitated and
frustrated with necessary tasks by RN. Emotional support and encouragement given as needed.
[2024-10-06 05:22] LABS: Hematocrit 21.4 % (39.0-52.0); Hemoglobin 7.5 g/dL (13.0-18.0); Mean Corpuscular Hgb 31.8 pg (27.0-31.0); Mean Corpuscular Volume 90.7 fL (80.0-94.0); Mean Platelet Volume 9.3 fL (7.4-10.4); Platelet Count 201 10^3/uL (130-400); Red Blood Cell Count 2.36 10^6/uL (4.70-6.10); Red Cell Dist. Width 17.2 % (11.5-14.5)
[2024-10-06 05:55] LABS: Blood Urea Nitrogen 14 mg/dl (9-20); Calcium 7.4 mg/dl (8.4-10.2); Carbon Dioxide 26 mmol/L (22-30); Chloride 95 mmol/L (98-107); Estimated Creatinine Clearance 98 ml/min; Glucose 121 mg/dl (70-99); Potassium 3.3 mmol/L (3.5-5.1); Sodium 130 mmol/L (135-145); eGFR > 60.00
[2024-10-06] MEDS: ROXICODONE ORAL SOLUTION 10 MG TUBE ×4 (06:39→21:33)
[2024-10-06] MEDS: ROBITUSSIN 200 MG TUBE (06:40)
--- NOTE | 2024-10-06 07:31 | PTCARENOTE ---
Report given verbally to ANDREW Mejía, questions answered.
[2024-10-06] MEDS: LEVAQUIN 750 MG TUBE (08:15)
[2024-10-06] MEDS: LIDOCAINE 4% PATCH TOPICAL (08:16)
[2024-10-06] MEDS: PROTONIX IV 40 MG IV ×2 (08:18→20:32)
[2024-10-06] MEDS: MIRALAX TUBE (08:18)
[2024-10-06] MEDS: NSS (PRESERVATIVE FREE) 10 ML IV ×2 (08:18→20:32)
[2024-10-06] MEDS: VIBRAMYCIN 100 MG TUBE ×2 (08:18→20:32)
[2024-10-06] MEDS: ATIVAN 0.25 MG PO ×2 (08:22→15:30)
--- NOTE | 2024-10-06 09:51 | W.PN.ONC2 ---
Today's Communication / Plan
-
OP follow up upon discharge will be arranged
Impression
Impression
Sepsis 2/2 post obstructive PNA, Bcx gram stain with gram positive cocci in clusters
symptomatic anemia -ABLA secondary to bleeding tongue vs GI related melena
Tongue cancer status post radiation/chemo, trach, peg
Enlarging lingular mass
Hx prostate Ca with prior radiation/TURP
hyponatremia
hypokalemia
sternal fracture
Plan
Plan
transfuse prn
on PPI, GI no plans for scope at this time
abx per ID
Radiation suspended
Outpt PET scan to confirm suspicion of metastatic disease with enlarging lingular mass
symptom managemetn
Goals of care restorative -Will review palliative systemic options pending results of additional imaging/biopsy
Subjective/Objective
Subjective
no new complaints
Vital Signs:
Vital Signs
Temp Pulse Resp BP Pulse Ox
98 F 64 19 97/60 95
10/06/24 07:55 10/06/24 08:00 10/06/24 08:00 10/06/24 08:00 10/06/24 08:00
Lab Results:
Laboratory Data
WBC 12.0 10^3/uL (4.8-10.8) H 10/06/24 04:27
Hgb 7.5 g/dL (13.0-18.0) L 10/06/24 04:27
Plt Count 201 10^3/uL (130-400) 10/06/24 04:27
PT 15.8 Sec (11.4-14.6) H 09/30/24 22:09
INR 1.23 09/30/24 22:09
eGFR > 60.00 10/06/24 04:27
Physical Exam
HEENT-atraumatic, normocephalic, tracheostomy
Heart-regular rate and rhythm-no murmurs, rubs or gallops
Chest crepitant rales in the base at the bases, expiratory rhonchi
Back without tenderness
Abdomen-soft, nontender, nondistended, no hepatosplenomegaly
Extremities-no cyanosis, clubbing, edema and good peripheral pulses
Integument-intact, no rashes, lesions or ecchymosis
--- NOTE | 2024-10-06 11:26 | W.PN.HOSP.TC ---
Today's Communication/Plan
-
continue pain control
PT/OT/OOBTC
IV Abx continue
dc planning
Assessment / Plan
Assessment / Plan
Assessment:
Tongue cancer/SCC status post radiation/chemo
- Follows up with Dr. Cole coronel and had chemo therapy 1 week back.
- Patient have part of anterior tongue sloughed off from dry gangrene, sample in the room. Remaining tongue looks healthy on exam.
- Dr. Kameron Schmidt discussed with Dr. Anglin who recommended repeat PET scan and to skip CT neck that was planned outpt as it is redundant imaging.
s/p Tracheostomy
s/p PEG tube
- patient tracheostomy in place with excessive secretion. Continue respiratory care
- Robitussin through PEG tube ordered
- PEG dislodged 10/04 and replaced by GI
Sepsis in immunocompromise patient
- fever/tachycardia/leukocytosis
- potential source of wound around tracheostomy site, purulent drainage on wound.
- Also left lingular lobe presumed postobstructive pneumonia vs mets
- continue Levaquin/Doxycycline (PCN allergy), day 01/01. Cultures NGTD
Coag neg staph
- likely contaminant, repeat cultures NGTD
Left lingular lobe mass
- Will require transcutaneous biopsy versus PET scan, oncology to decide.
Melena/acute blood loss anemia
- Total 3 unit of PRBCs this admission
- No reported hematemesis/melena
- Discussed with GI and starting patient on trickle tube feed
- Maintain on IV PPI for now
- Hbg 7.5, continue monitor and transfuse <7
Hypokalemia
- replace prn
Hyponatremia
- suspected euvolemic from malignancy vs pna.
Left-sided complex effusion
Pleuritic pain
- Patient having significant left-sided pleuritic pain. X-ray showed small effusion developing
- Chest ultrasound showed small effusion not amenable to drainage
- continue pain control
CAD
COPD
Essential HTN
Prostate cancer s/p radiation
DVT ppx: Lovenox
Code: DNR/DNI
Anticipated Discharge: > 48 hours
Subjective/Interval History
-
Date of Service: October 06, 2024
resting comfortably
reports L chest wall pain improving
reports chronic throat pain
Hb 7.5 this AM
Objective Data
-
Labs:
Laboratory Results
10/06/24
04:27
WBC 12.0 H
Hgb 7.5 L
Hct 21.4 L
Plt Count 201
Sodium 130 L
Potassium 3.3 L
Chloride 95 L
Carbon Dioxide 26
BUN 14
Creatinine 0.5 L
Glucose 121 H
Calcium 7.4 L
Vital Signs:
Vital Signs
Temp Pulse Resp BP Pulse Ox
98 F 64 19 97/60 95
10/06/24 07:55 10/06/24 08:00 10/06/24 08:00 10/06/24 08:00 10/06/24 08:00
I&O
10/05/24 10/06/24 10/07/24
06:59 06:59 06:59
Intake Total 660 / 660 1445 / 1445 120 / 120
Output Total 800 / 800 850 / 850
Balance -140 / -140 595 / 595 120 / 120
Physical Exam
-
General: No Apparent Distress and Appears Chronically Ill
HEENT: Normocephalic, Atraumatic and Tracheostomy Collar
Respiratory: Negative Wheezes
Cardiac: Regular Rhythm and S1/S2
GI: Soft and Peg Tube
Genito-urinary: No Costovertebral Tender
Musculoskeletal: No Edema
Neuro: AO x 3
Hematologic / Lymphatic: No Lymphadenopathy
Psych: Calm
Data Reviewed
-
Total Time Spent with Patient (in minutes): 42
Labs: Labs Reviewed by me
--- NOTE | 2024-10-06 16:08 | CM ---
Patient with Hx Tongue cancer/SCC status post radiation/chemo, status post trach and PEG with bolus tube feeds at home. Room air. Seen by wound care nurse. OT recommends skilled rehab.
Met with patient and spoke with Alena; both agree to a referral to [facility] for rehab. Per , radiation and chemo are on hold until he gets a Pet Scan. Patient does his own tube feeds at home and trach care at home. Patient has
been to [facility] in the past.
Await PT Eval.
Plan referral to [facility].
--- NOTE | 2024-10-06 17:41 | PTCARENOTE ---
Assumed care of Pt at change of shift. Pt resting comfortably in bed, reporting pain 5/10. Pain managed with Oxy 10mg via PEG tube. Pt self clears secretions, refuses deep suctioning. Pt speaking with PM valve. Will continue to monitor and
assess.
[2024-10-06] MEDS: ATIVAN 0.5 MG PO (21:34)
[2024-10-07] VITALS (19 sets, daily range): BP systolic 83–154; BP diastolic 61–108
[2024-10-07] MEDS: ROXICODONE ORAL SOLUTION 10 MG TUBE ×5 (01:31→20:22)
[2024-10-07] MEDS: ATIVAN 0.5 MG PO ×5 (01:31→20:21)
--- NOTE | 2024-10-07 02:38 | PTCARENOTE ---
No acute events overnight. T max 100.2. Uncooperative at times with care. Refuses trach and wound care. PRN oxycodone and ativan given for pain/anxiety.
[2024-10-07] MEDS: TYLENOL 650 MG TUBE (05:40)
[2024-10-07 06:21] LABS: Hemoglobin 7.3 g/dL (13.0-18.0); Mean Corp Hgb Conc. 34.8 g/dL (33.0-37.0); Mean Corpuscular Hgb 31.6 pg (27.0-31.0); Mean Corpuscular Volume 90.9 fL (80.0-94.0); Mean Platelet Volume 8.9 fL (7.4-10.4); Platelet Count 215 10^3/uL (130-400); Red Blood Cell Count 2.31 10^6/uL (4.70-6.10); Red Cell Dist. Width 17.1 % (11.5-14.5); White Blood Cell Count 9.6 10^3/uL (4.8-10.8)
[2024-10-07 06:50] LABS: Chloride 94 mmol/L (98-107); Potassium 3.8 mmol/L (3.5-5.1); Sodium 130 mmol/L (135-145)
[2024-10-07 07:01] LABS: Blood Urea Nitrogen 15 mg/dl (9-20); Calcium 7.7 mg/dl (8.4-10.2); Carbon Dioxide 25 mmol/L (22-30); Estimated Creatinine Clearance 98 ml/min; Glucose 114 mg/dl (70-99); eGFR > 60.00
[2024-10-07] MEDS: VIBRAMYCIN 100 MG TUBE ×2 (08:59→20:23)
[2024-10-07] MEDS: LIDOCAINE 4% PATCH 1 PATCH TOPICAL (09:00)
[2024-10-07] MEDS: MIRALAX 17 GRAMS TUBE (09:00)
[2024-10-07] MEDS: LEVAQUIN 750 MG TUBE (09:00)
[2024-10-07] MEDS: PROTONIX IV 40 MG IV ×2 (09:00→20:21)
[2024-10-07] MEDS: NSS (PRESERVATIVE FREE) 10 ML IV ×2 (09:01→20:21)
--- NOTE | 2024-10-07 09:34 | W.PN.HOSP.TC ---
Today's Communication/Plan
-
1 unit PRBC
probably DC to SNF in 24 hours
Assessment / Plan
Assessment / Plan
Assessment:
Tongue cancer/SCC status post radiation/chemo
- Follows up with Dr. Cole coronel and had chemo therapy 1 week back.
- Patient have part of anterior tongue sloughed off from dry gangrene, sample in the room. Remaining tongue looks healthy on exam.
- Dr. Kameron Schmidt discussed with Dr. Anglin who recommended repeat PET scan and to skip CT neck that was planned outpt as it is redundant imaging.
s/p Tracheostomy
s/p PEG tube
- patient tracheostomy in place with excessive secretion. Continue respiratory care
- Robitussin through PEG tube ordered
- PEG dislodged 10/04 and replaced by GI
Sepsis in immunocompromise patient
- fever/tachycardia/leukocytosis
- potential source of wound around tracheostomy site, purulent drainage on wound.
- Also left lingular lobe presumed postobstructive pneumonia vs mets
- continue Levaquin/Doxycycline (PCN allergy), day 01/31. Cultures NGTD
Coag neg staph
- likely contaminant, repeat cultures NGTD
Left lingular lobe mass
- Will require transcutaneous biopsy versus PET scan, oncology to decide.
Melena/acute blood loss anemia
- Total 3 unit of PRBCs this admission
- No reported hematemesis/melena
- Discussed with GI and starting patient on trickle tube feed
- Maintain on IV PPI for now
- Hbg 7.3, addition 1 unit ordered today.
Hypokalemia
- replace prn
Hyponatremia
- suspected euvolemic from malignancy vs pna.
Left-sided complex effusion
Pleuritic pain
- Patient having significant left-sided pleuritic pain. X-ray showed small effusion developing
- Chest ultrasound showed small effusion not amenable to drainage
- continue pain control
CAD
COPD
Essential HTN
Prostate cancer s/p radiation
DVT ppx: Lovenox
Code: DNR/DNI
Anticipated Discharge: Within 24 hours
Subjective/Interval History
-
Date of Service: October 07, 2024
no acute complaints
Objective Data
-
Labs:
Laboratory Results
10/07/24
05:59
WBC 9.6
Hgb 7.3 L
Hct 21.0 L
Plt Count 215
Sodium 130 L
Potassium 3.8
Chloride 94 L
Carbon Dioxide 25
BUN 15
Creatinine 0.5 L
Glucose 114 H
Calcium 7.7 L
Vital Signs:
Vital Signs
Temp Pulse Resp BP Pulse Ox
98.2 F 76 17 107/61 93
10/07/24 07:55 10/07/24 06:00 10/07/24 06:00 10/07/24 06:00 10/07/24 04:00
I&O
10/06/24 10/07/24 10/08/24
06:59 06:59 06:59
Intake Total 1445 / 1445 1140 / 1140
Output Total 850 / 850 200 / 200
Balance 595 / 595 940 / 940
Physical Exam
-
General: No Apparent Distress and Appears Chronically Ill
HEENT: Normocephalic, Atraumatic and Tracheostomy Collar
Respiratory: Negative Wheezes
Cardiac: Regular Rhythm and S1/S2
GI: Soft
Neuro: AO x 3
Psych: Calm
Data Reviewed
-
Total Time Spent with Patient (in minutes): 42
Labs: Labs Reviewed by me
--- NOTE | 2024-10-07 11:54 | CM ---
CM follwoing re: discharge planning.
Reviewed pt's chart, met with pt and spoke to pt's spouse Alena to update on discharge plan progress.
According to MD pt most likely will be ready for discharge tomorrow.
PT and OT evaluations noted - SNF level of care recommended. Both pt and his spouse are aware, expressed their agreement and [facility] requested.
A referral to [facility] made. Per [facility] practice director they do not have available tomorrow and pt might be accepted based on bed availability on the day of discharge.
D/C plan: [facility] based on bed availability on the day of discharge.
CM will follow with discharge plan updates as hospitalization progresses
[2024-10-07] MEDS: TRANSDERM-SCOP TRANSDERM (12:34)
[2024-10-07] MEDS: STERILE WATER FOR INJECTION IV (14:08)
--- NOTE | 2024-10-07 15:48 | PN.CDI ---
CDI
- -
CDI:
Physician Documentation Request
Admit Date: 10/01/24 02:03
Dear Doctor Vern,
Patient admitted for sepsis.
10/06 Clinical Appeals Specialist Assessment: 'Pt experienced 3.8% wt loss within one week-severe.
As per ASPEN/AND pt meets criteria for severe malnutrition in the context of acute illness with 3.8% wt loss within one week and <50% of energy requirements for 5 days.'
Based on the above information and your assessment, which of the following most accurately represents the patient's nutritional status?
Severe protein calorie malnutrition
Other (please specify)
[place] Criteria ([facility] Hospitalist 2017)
2 or more criteria must be present for either
non severe or severe malnutrition
Note that the criteria differs related to the
presence of an acute or chronic illness
Acute Illness Chronic Illness
Energy Intake Non Severe: <75% for >7 days Non Severe: <75% for >1 month
Severe: <50% for >5 days Severe: <75% for >1 month
Weight Loss Non Severe: 1-2% over 1 week Non Severe: 5% over 1 month
5% over 1 month 7.5% over 3 months
7.5% over 3 months 10% over 6 months
1 year N/A 20% over 1 year
Severe: >2% over 1 week Severe: >5% over 1 month
>5% over 1 month >7.5% over 3 months
>7.5% over 3 months >10% over 6 months
1 year N/A >20% over 1 year
Body Fat Non Severe: Mild Decrease Non Severe: Mild Loss
Severe: Moderate Decrease Severe: Severe Loss
Muscle Mass Non Severe: Mild Decrease Non Severe: Mild Loss
Severe: Moderate Decrease Severe: Severe Loss
Fluid Accumulation Non Severe: Mild Accumulation Non Severe: Mild Accumulation
Severe: Moderate to severe Severe: Moderate to severe
accumulation accumulation
Reduced Denture Packer Strength Non Severe: N/A Non Severe: N/A
Severe: Measurably reduced Severe: Measurably reduced
Additional criteria that can be used to Determine if Mild or Moderate Malnutrition ([employer] Manual 2018)
Mild Moderate Severe
Albumin gm/dl <3.0 gm/dl <2.5 gm/dl <2.0 gm/dl
Pre Albumin mg/dl <15 gm/dl <10 mg/dl <5.0 mg/dl
BMI <18.5 <17 <16
Use of terms such as suspected, likely, concern for, or probable (associated with a specific diagnosis that is being evaluated, monitored, or treated as if it exists) are acceptable and can be coded in the inpatient setting, when documented at the
time of discharge.
Thank you,
Lilliam Nolan RN, BSN
CDI Specialist
Available via [place] text
Please use your independent medical judgment in providing your response.
[2024-10-07] MEDS: TRANSDERM-SCOP 1 PATCH TRANSDERM (16:00)
[2024-10-07] MEDS: TYLENOL ORAL SOLUTION 650 MG TUBE (16:25)
--- NOTE | 2024-10-07 16:56 | PTCARENOTE ---
Trach care completed, inner cannula changed and trach collar changed with support of Respiratory therapist.
[2024-10-07] MEDS: FLUSH (NSS) 1 FLUSH IV (17:59)
--- NOTE | 2024-10-07 18:41 | PTCARENOTE ---
Patient alert and oriented x 3 throughout the shift. He can be irritable and resistant to care. With coaching, reassurance and some long conversations the patient s agreeable to trach care and neck wound care. is present at bedside and
encouraging pt to allow care. Pt premedicated with his pain med and then ativan. PT hgb 7.3 today and received 1 unit PRBCs today via subq port. Pt did have 3 small tarry burgundy stools today, reported to Attending MD> will repeat HGB in am. Pt
tolerated transfusion without event. Discharge planning in progress for [facility].
[2024-10-08] VITALS (11 sets, daily range): BP systolic 98–142; BP diastolic 59–83; PULSE 85; O2SAT 94–97
[2024-10-08] MEDS: ATIVAN 0.5 MG PO ×6 (00:56→21:49)
[2024-10-08] MEDS: ROXICODONE ORAL SOLUTION 10 MG TUBE ×6 (00:56→21:49)
[2024-10-08] MEDS: TYLENOL ORAL SOLUTION 650 MG TUBE ×2 (00:58→17:34)
[2024-10-08 06:07] LABS: Hematocrit 25.8 % (39.0-52.0); Hemoglobin 8.9 g/dL (13.0-18.0); Mean Corp Hgb Conc. 34.5 g/dL (33.0-37.0); Mean Corpuscular Hgb 31.2 pg (27.0-31.0); Mean Corpuscular Volume 90.5 fL (80.0-94.0); Mean Platelet Volume 8.6 fL (7.4-10.4); Platelet Count 225 10^3/uL (130-400); Red Blood Cell Count 2.85 10^6/uL (4.70-6.10); Red Cell Dist. Width 16.4 % (11.5-14.5); White Blood Cell Count 9.2 10^3/uL (4.8-10.8)
[2024-10-08 06:12] LABS: Blood Urea Nitrogen 16 mg/dl (9-20); Calcium 7.7 mg/dl (8.4-10.2); Carbon Dioxide 29 mmol/L (22-30); Chloride 96 mmol/L (98-107); Estimated Creatinine Clearance 98 ml/min; Glucose 86 mg/dl (70-99); Potassium 3.9 mmol/L (3.5-5.1); Sodium 132 mmol/L (135-145); eGFR > 60.00
--- NOTE | 2024-10-08 06:13 | PTCARENOTE ---
Patient particular and refusing care at times. Refused any trach care/ inner cannula change. Agreed to [facility] bath. PRN roxicodone given q4h along with ativan. Emotional support provided.
--- NOTE | 2024-10-08 07:49 | W.PN.HOSP.TC ---
Today's Communication/Plan
-
stable Hb after transfusion
DC planning to rehab
Assessment / Plan
Assessment / Plan
Assessment:
Tongue cancer/SCC status post radiation/chemo
- Follows up with Dr. Cole coronel and had chemo therapy 1 week back.
- Patient have part of anterior tongue sloughed off from dry gangrene, sample in the room. Remaining tongue looks healthy on exam.
- Dr. Kameron Schmidt discussed with Dr. Anglin who recommended repeat PET scan and to skip CT neck that was planned outpt as it is redundant imaging.
s/p Tracheostomy
s/p PEG tube
- patient tracheostomy in place with excessive secretion. Continue respiratory care
- Robitussin through PEG tube ordered
- PEG dislodged 10/04 and replaced by GI
- continue tube feeds
Sepsis in immunocompromise patient
- fever/tachycardia/leukocytosis
- potential source of wound around tracheostomy site, purulent drainage on wound.
- Also left lingular lobe presumed postobstructive pneumonia vs mets
- continue Levaquin/Doxycycline (PCN allergy), day 03/03. Cultures NGTD
Coag neg staph
- likely contaminant, repeat cultures NGTD
Left lingular lobe mass
- Will require transcutaneous biopsy versus PET scan, oncology to decide.
Melena/acute blood loss anemia
- Total 4 unit of PRBCs this admission
- No reported hematemesis/melena
- Discussed with GI and starting patient on trickle tube feed
- Maintain on IV PPI for now
- Hbg 8.9
Hypokalemia
- replace prn
Hyponatremia
- suspected euvolemic from malignancy vs pna.
Left-sided complex effusion
Pleuritic pain
- Patient having significant left-sided pleuritic pain. X-ray showed small effusion developing
- Chest ultrasound showed small effusion not amenable to drainage
- continue pain control
CAD
COPD
Essential HTN
Prostate cancer s/p radiation
Severe protein calorie malnutrition
DVT ppx: Lovenox
Code: DNR/DNI
Anticipated Discharge: > 48 hours
Subjective/Interval History
-
Date of Service: October 08, 2024
no new complaints
Hb is 8.9
Objective Data
-
Labs:
Laboratory Results
10/08/24
05:19
WBC 9.2
Hgb 8.9 L D
Hct 25.8 L
Plt Count 225
Sodium 132 L
Potassium 3.9
Chloride 96 L
Carbon Dioxide 29
BUN 16
Creatinine 0.5 L
Glucose 86
Calcium 7.7 L
Vital Signs:
Vital Signs
Temp Pulse Resp BP Pulse Ox
98.7 F 73 18 101/59 96
10/08/24 04:26 10/08/24 06:00 10/08/24 06:00 10/08/24 06:00 10/08/24 04:00
I&O
10/07/24 10/08/24 10/09/24
06:59 06:59 06:59
Intake Total 1140 / 1140 1400 / 1400
Output Total 200 / 200 1100 / 1100
Balance 940 / 940 300 / 300
Physical Exam
-
General: No Apparent Distress
HEENT: Normocephalic and Atraumatic
Respiratory: Negative Wheezes
Cardiac: Regular Rhythm and S1/S2
GI: Soft and Nontender
Genito-urinary: No Costovertebral Tender
Neuro: AO x 3
Psych: Calm
Data Reviewed
-
Total Time Spent with Patient (in minutes): 42
Labs: Labs Reviewed by me
[2024-10-08] MEDS: NSS (PRESERVATIVE FREE) 10 ML IV ×2 (08:59→21:43)
[2024-10-08] MEDS: LEVAQUIN 750 MG TUBE (08:59)
[2024-10-08] MEDS: PROTONIX IV 40 MG IV ×2 (08:59→21:43)
[2024-10-08] MEDS: LIDOCAINE 4% PATCH TOPICAL (09:00)
[2024-10-08] MEDS: MIRALAX TUBE (09:01)
[2024-10-08] MEDS: VIBRAMYCIN 100 MG TUBE ×2 (09:06→21:47)
--- NOTE | 2024-10-08 10:29 | CM ---
Addendum entered by Azeb Sanford RN 10/08/24 14:04:
Noting wound care needs per wound care nurse.
Addendum entered by Azeb Sanford RN 10/08/24 13:46:
Spoke with [facility]; they currently do not have an available bed. They may have an available bed on Sat 10/11 depending on other discharged and cannot commit to that day.
Spoke with again; discussed other SNF options including [facility], [facility] & [facility], however she declines all of these due to her knowledge of care issues at these SNFs. She is interested in finding out if [facility] would consider
him.
Spoke with [facility]; reviewed patient's clinical status - she will consider however they currently do not have an available bed. Patient will need Physiatry Consult.
Case discussed with Dr Porras - plan physiatry eval.
Plan follow up after seen by Physiatry.
Original Note:
Patient with Hx Tongue cancer/SCC status post radiation/chemo, status post trach and PEG with bolus tube feeds at home, with Dx Melena/acute blood loss anemia s/p transfusions, sepsis with Abx via PEG. Room air. Receiving Roxicodone prn via PEG,
Lidocaine Patch. Jevity tube feeds. PT/OT recommend skilled rehab.
Messages with Dr Porras; patient is medically stable for d/c.
Spoke with [facility]; she is working on creating an available bed - she is aware patient is medically ready for d/c today and patient will need insurance auth for SNF.
Spoke with [facility]; she is able to review a referral.
Backup SNF referral placed in [facility].
Plan follow up with [facility] for bed availability.
--- NOTE | 2024-10-08 11:25 | PTCARENOTE ---
Assumed care of patient this morning. He is aaox3, flat. Pt is agreeable to some care but is refusing other's. Pt worked with physical therapy and he refused to stay in the chair for even 10 minutes. Pt ran his fall as soon as they PT/OT left the
room to get back in bed.
Per nightshift RN, pt had a burgundy stool overnight. Pt c/o of pain to his neck and ribs. Pt medicated per NOV. Assessment, care and VS as charted.
[2024-10-08] MEDS: LIDOCAINE 4% PATCH 1 PATCH TOPICAL (13:21)
--- NOTE | 2024-10-08 15:25 | W.PN.ONC2 ---
Today's Communication / Plan
-
Discharge planning in progress
Impression
Impression
Sepsis 2/2 post obstructive PNA, Bcx gram stain with gram positive cocci in clusters
symptomatic anemia -ABLA secondary to bleeding tongue vs GI related melena
Tongue cancer status post radiation/chemo, trach, peg
Enlarging lingular mass
Hx prostate Ca with prior radiation/TURP
hyponatremia
hypokalemia
sternal fracture
Plan
Plan
transfuse prn
on PPI, GI no plans for scope at this time
abx per ID
Radiation suspended
Outpt PET scan to confirm suspicion of metastatic disease with enlarging lingular mass
symptom managemetn
Goals of care restorative -Will review palliative systemic options pending results of additional imaging/biopsy
Subjective/Objective
Subjective
no new complaints
Vital Signs:
Vital Signs
Temp Pulse Resp BP Pulse Ox
99.9 F 73 22 121/64 95
10/08/24 11:50 10/08/24 12:00 10/08/24 12:00 10/08/24 10:06 10/08/24 11:15
Lab Results:
Laboratory Data
WBC 9.2 10^3/uL (4.8-10.8) 10/08/24 05:19
Hgb 8.9 g/dL (13.0-18.0) L D 10/08/24 05:19
Plt Count 225 10^3/uL (130-400) 10/08/24 05:19
PT 15.8 Sec (11.4-14.6) H 09/30/24 22:09
INR 1.23 09/30/24 22:09
eGFR > 60.00 10/08/24 05:19
Physical Exam
HEENT-atraumatic, normocephalic, tracheostomy
Heart-regular rate and rhythm-no murmurs, rubs or gallops
Chest scattered rhonchi
Back without tenderness
Abdomen-soft, nontender, nondistended, PEG
Extremities-no edema
[2024-10-09] VITALS (12 sets, daily range): BP systolic 96–128; BP diastolic 55–72
[2024-10-09] MEDS: ATIVAN 0.5 MG PO ×5 (03:50→22:12)
[2024-10-09] MEDS: ROXICODONE ORAL SOLUTION 10 MG TUBE ×5 (03:50→22:12)
--- NOTE | 2024-10-09 04:12 | PTCARENOTE ---
Assumed care for patient overnight, received report from gary RN. AAOx3, flat affect. Bobo Yang at the bedside at change of shift. Pt refusing trach care. Pt agreeable to PEG site care. Pt complains of 6/10 pain in his neck and ribcage and
requesting Roxicodone, administered PRN dose or Roxicodone. NSR on tele. 97% on room air. Pt had one moderate sized burgundy BM, ambulated to the commode assist x1 with a rolling walker. CHG cloth bath done and oral hygiene care done. Educated on
the importance of shifting around in the bed. Pt ringing call fall appropriately, call fall is within reach.
[2024-10-09] MEDS: LEVAQUIN 750 MG TUBE (08:53)
[2024-10-09] MEDS: NSS (PRESERVATIVE FREE) 10 ML IV ×2 (08:53→21:32)
--- NOTE | 2024-10-09 08:53 | W.PN.ONC2 ---
Addendum entered and electronically signed by Jayden Galvan DO 10/09/24 15:02:
Additional addendum: Alerted by primary team that the patient is having difficulty with placement secondary to persistent anemia previously felt to be secondary to insidious oral bleeding associated with his primary malignancy. There have however,
been no indications of active bleeding other than slight oozing which would explain continued anemia. Would reevaluate substrates, reticulocyte count, YAMILET, haptoglobin.
Original Note:
Today's Communication / Plan
-
Discharge planning in progress
Impression
Impression
Sepsis 2/2 post obstructive PNA, Bcx gram stain with gram positive cocci in clusters
symptomatic anemia -ABLA secondary to bleeding tongue vs GI related melena
Tongue cancer status post radiation/chemo, trach, peg
Enlarging lingular mass
Hx prostate Ca with prior radiation/TURP
hyponatremia
hypokalemia
sternal fracture
Plan
Plan
transfuse prn
on PPI, GI no plans for scope at this time
abx per ID
Radiation suspended
Outpt PET scan to confirm suspicion of metastatic disease with enlarging lingular mass
symptom managemetn
Goals of care restorative -Will review palliative systemic options pending results of additional imaging/biopsy
Subjective/Objective
Subjective
no new complaints
Vital Signs:
Vital Signs
Temp Pulse Resp BP Pulse Ox
98.1 F 77 16 128/69 97
10/09/24 04:05 10/09/24 06:00 10/09/24 06:00 10/09/24 06:00 10/09/24 04:06
Lab Results:
Laboratory Data
WBC 9.2 10^3/uL (4.8-10.8) 10/08/24 05:19
Hgb 8.9 g/dL (13.0-18.0) L D 01/15/25 05:19
Plt Count 225 10^3/uL (130-400) 10/08/24 05:19
PT 15.8 Sec (11.4-14.6) H 09/30/24 22:09
INR 1.23 09/30/24 22:09
eGFR > 60.00 10/08/24 05:19
Physical Exam
HEENT-atraumatic, normocephalic, tracheostomy
Heart-regular rate and rhythm-no murmurs, rubs or gallops
Chest scattered rhonchi
Back without tenderness
Abdomen-soft, nontender, nondistended, PEG
Extremities-no edema
[2024-10-09] MEDS: LIDOCAINE 4% PATCH TOPICAL ×2 (08:54→09:00)
[2024-10-09] MEDS: MIRALAX 17 GRAMS TUBE (08:54)
[2024-10-09] MEDS: PROTONIX IV 40 MG IV ×2 (08:54→21:31)
[2024-10-09] MEDS: VIBRAMYCIN 100 MG TUBE ×2 (08:56→22:12)
[2024-10-09 09:24] LABS: Hemoglobin 8.3 g/dL (13.0-18.0); Mean Corp Hgb Conc. 34.6 g/dL (33.0-37.0); Mean Corpuscular Hgb 31.4 pg (27.0-31.0); Mean Corpuscular Volume 90.9 fL (80.0-94.0); Mean Platelet Volume 8.7 fL (7.4-10.4); Platelet Count 222 10^3/uL (130-400); Red Blood Cell Count 2.64 10^6/uL (4.70-6.10); Red Cell Dist. Width 16.3 % (11.5-14.5); White Blood Cell Count 8.9 10^3/uL (4.8-10.8)
[2024-10-09 10:45] LABS: Blood Urea Nitrogen 15 mg/dl (9-20); Calcium 7.5 mg/dl (8.4-10.2); Carbon Dioxide 29 mmol/L (22-30); Chloride 94 mmol/L (98-107); Estimated Creatinine Clearance 98 ml/min; Glucose 125 mg/dl (70-99); Potassium 3.8 mmol/L (3.5-5.1); Sodium 130 mmol/L (135-145); eGFR > 60.00
--- NOTE | 2024-10-09 14:06 | CM ---
Addendum entered by Azeb Sanford RN 10/09/24 15:50:
Message from [facility]; they anticipate that they will have a bed on Wednesday 10/11. Contact [place] tomorrow at [phone]. Please send patient with an extra trach.
Spoke with patient's Alena; informed her that [facility] can accept on Sat once insurance approves.
Plan insurance auth tomorrow for [facility] for Sat 10/11.
Original Note:
Patient with Hx Tongue cancer/SCC status post radiation/chemo, status post trach and PEG with bolus tube feeds at home, who is s/p transfusions. Room air. Receiving Abx via PEG, Roxicodone prn via PEG, Lidocaine & Scopolamine Patches. Jevity
tube feeds. PT/OT recommend skilled rehab. Physiatry Consult pending.
Received phone call from patient's ; provided update Physiatry Eval is still pending and [facility] has no available beds.
Message from [facility]; they have no available bed today.
Spoke with [facility]; they reviewed the patient's benefits and discovered that there are no Tier 1 benefits with [facility] for acute rehab - she will relay this information to patient's . There is a concern about patient's ongoing anemia and
stability for [facility]. Physiatry PA Holly [facility] will see him. They are wondering if patient may benefit from a Palliative Care Consult----> message sent to Kevyn Porras & [facility].
Plan [facility] acute [facility]hab vs [facility].
--- NOTE | 2024-10-09 14:33 | PTCARENOTE ---
Assumed care of patient this morning. He was agreeable to most care, eg. oral and trachestomy. Pt did refuse Lidocaine patch this morning. He c/o of pain to his throat and left ribs. Pt medicated with PRN Oxycodone, see MAR. Pt frequently coughing
up moderately thick, white to clear sputum either orally or through trach. Pt reports he does not think it has increased more than normal. Assessment, care and VS as charted.
--- NOTE | 2024-10-09 15:12 | W.PN.HOSP.TC ---
Today's Communication/Plan
-
further anemia workup per hematology
monitor Hb
continue Abx
Assessment / Plan
Assessment / Plan
Assessment:
Tongue cancer/SCC status post radiation/chemo
- Follows up with Dr. Cole coronel and had chemo therapy 1 week back.
- Patient have part of anterior tongue sloughed off from dry gangrene, sample in the room. Remaining tongue looks healthy on exam, no sign of active bleeding
- Dr. Kameron Schmidt discussed with Dr. Anglin who recommended repeat PET scan and to skip CT neck that was planned outpt as it is redundant imaging.
s/p Tracheostomy
s/p PEG tube
- patient tracheostomy in place with excessive secretion. Continue respiratory care
- Robitussin through PEG tube ordered
- PEG dislodged 10/04 and replaced by GI
- continue tube feeds
Sepsis in immunocompromise patient
- fever/tachycardia/leukocytosis
- potential source of wound around tracheostomy site, purulent drainage on wound.
- Also left lingular lobe presumed postobstructive pneumonia vs mets
- continue Levaquin/Doxycycline (PCN allergy), day 04/02. Cultures NGTD
Coag neg staph
- likely contaminant, repeat cultures NGTD
Left lingular lobe mass
- Will require transcutaneous biopsy versus PET scan, oncology to decide.
Melena/acute blood loss anemia - likely stemming from tongue bleeding trickling into GI bleed
- Total 4 unit of PRBCs this admission
- No reported hematemesis/melena. BUN normal. PEG irrigated without bloody return.
- Discussed with GI and starting patient on trickle tube feed
- Maintain on IV PPI for now
- Hbg 8.3
- d/w hematology on 10/09 for additional workup of anemia
Hypokalemia
- replace prn
Hyponatremia
- suspected euvolemic from malignancy vs pna.
Left-sided complex effusion
Pleuritic pain
- Patient having significant left-sided pleuritic pain. X-ray showed small effusion developing
- Chest ultrasound showed small effusion not amenable to drainage
- continue pain control
CAD
COPD
Essential HTN
Prostate cancer s/p radiation
Severe protein calorie malnutrition
DVT ppx: Lovenox
Code: DNR/DNI
Anticipated Discharge: > 48 hours
Subjective/Interval History
-
Date of Service: October 09, 2024
no new complaints
no melena
Objective Data
-
Labs:
Laboratory Results
10/09/24
09:16
WBC 8.9
Hgb 8.3 L
Hct 24.0 L
Plt Count 222
Sodium 130 L
Potassium 3.8
Chloride 94 L
Carbon Dioxide 29
BUN 15
Creatinine 0.5 L
Glucose 125 H
Calcium 7.5 L
Vital Signs:
Vital Signs
Temp Pulse Resp BP Pulse Ox
99.1 F 73 17 120/66 97
10/09/24 11:44 10/09/24 14:00 10/09/24 14:00 10/09/24 14:00 10/09/24 14:00
I&O
10/08/24 10/09/24 10/10/24
06:59 06:59 06:59
Intake Total 1400 / 1400 1060 / 1060
Output Total 1100 / 1100 1300 / 1300 600 / 600
Balance 300 / 300 -240 / -240 -600 / -600
Physical Exam
-
General: No Apparent Distress
HEENT: Normocephalic, Atraumatic and Other (no tongue bleeding)
Respiratory: Negative Wheezes
Cardiac: Regular Rhythm and S1/S2
GI: Soft
Genito-urinary: No Costovertebral Tender
Hematologic / Lymphatic: No Lymphadenopathy
Psych: Calm
Data Reviewed
-
Total Time Spent with Patient (in minutes): 42
Labs: Labs Reviewed by me
[2024-10-09 17:08] LABS: Reticulocyte Count 1.6 % (0.4-2.8)
[2024-10-09 17:17] LABS: Iron 39 ug/dl (49-181); LDH 154 U/L (120-246)
[2024-10-09 17:26] LABS: Percent Saturation 21 % (20-50); Total Iron Binding Capacity 182 ug/dl (261-462)
[2024-10-09 17:50] LABS: TSH 0.93 uIU/ml (0.47-4.68)
[2024-10-09 18:25] LABS: Folate 6.5 ng/ml (2.76-20); Vitamin B12 804 pg/ml (239-931)
[2024-10-10] VITALS (12 sets, daily range): BP systolic 95–124; BP diastolic 59–88
[2024-10-10] MEDS: ATIVAN 0.5 MG PO ×5 (02:18→21:57)
[2024-10-10] MEDS: ROXICODONE ORAL SOLUTION 10 MG TUBE ×5 (02:18→21:56)
--- NOTE | 2024-10-10 03:40 | PTCARENOTE ---
Assumed care for patient overnight, received report from dayshift RN. Pt AAOx3, garbled speech, flat affect, and agitated at times. Pt adamantly refusing trach care and wound care, despite education and addressing concerns and importance. Pt
agreeable to PEG site care. Pt agreeable to CHG bath and oral care. Pt complaining of 6/10 neck and ribcage pain, requesting Roxicodone for pain and Ativan for anxiety, see MAR. Increasingly more agitated when asking pain and anxiety assessment
questions. Pt NSR on tele. 96% on room air. Educated on the importance of shifting around in the bed and frequent repositioning. Pt ringing call fall appropriately, call fall is within reach.
[2024-10-10 06:47] LABS: Hematocrit 24.5 % (39.0-52.0); Hemoglobin 8.2 g/dL (13.0-18.0)
[2024-10-10] MEDS: LEVAQUIN 750 MG TUBE (08:11)
[2024-10-10] MEDS: LIDOCAINE 4% PATCH TOPICAL (08:11)
[2024-10-10] MEDS: VIBRAMYCIN 100 MG TUBE ×2 (08:11→19:30)
[2024-10-10] MEDS: MIRALAX 17 GRAMS TUBE (08:11)
[2024-10-10] MEDS: PROTONIX IV 40 MG IV ×2 (08:11→19:30)
[2024-10-10] MEDS: NSS (PRESERVATIVE FREE) 10 ML IV ×2 (08:11→19:30)
--- NOTE | 2024-10-10 08:13 | W.PN.ONC2 ---
Today's Communication / Plan
-
discharge planning in progress
Impression
Impression
Sepsis 2/2 post obstructive PNA, Bcx gram stain with gram positive cocci in clusters
symptomatic anemia -ABLA secondary to bleeding tongue vs GI related melena. No evidence of hemolysis with normal retic, LDH and LFTs.
Tongue cancer status post radiation/chemo, trach, peg
Enlarging lingular mass
Hx prostate Ca with prior radiation/TURP
hyponatremia
hypokalemia
sternal fracture
Plan
Plan
transfuse prn
on PPI, GI no plans for scope at this time
abx per ID
Radiation suspended
Outpt PET scan to confirm suspicion of metastatic disease with enlarging lingular mass
symptom managemetn
Goals of care restorative -Will review palliative systemic options pending results of additional imaging/biopsy
Subjective/Objective
Subjective
no new complaints
Vital Signs:
Vital Signs
Temp Pulse Resp BP Pulse Ox
99.4 F 70 22 100/62 98
10/10/24 04:49 10/10/24 06:00 10/10/24 06:00 10/10/24 06:00 10/10/24 04:01
Lab Results:
Laboratory Data
WBC 8.9 10^3/uL (4.8-10.8) 10/09/24 09:16
Hgb 8.2 g/dL (13.0-18.0) L 10/10/24 06:34
Plt Count 222 10^3/uL (130-400) 10/09/24 09:16
PT 15.8 Sec (11.4-14.6) H 09/30/24 22:09
INR 1.23 09/30/24 22:09
eGFR > 60.00 10/09/24 09:16
Physical Exam
HEENT-atraumatic, normocephalic, tracheostomy
Heart-regular rate and rhythm-no murmurs, rubs or gallops
Chest scattered rhonchi
Back without tenderness
Abdomen-soft, nontender, nondistended, PEG
Extremities-no edema
--- NOTE | 2024-10-10 10:02 | CM ---
Addendum entered by Isis Wright 10/10/24 15:14:
CM spoke with patient's spouse via phone; update on SNF Authorization provided
IMM benefit explained to spouse via phone; form dated/timed @ 151
Addendum entered by Isis Wright 10/10/24 15:02:
SNF Authorization approved; Referral # [id number]
Starting 10/11/2024
Next Review 10/15/2024; Call
Plan: Discharge to [facility] tomorrow afternoon; will transport
Report # [phone]

CM will call Michael (#[phone]) @ facility in AM for bed acceptance time
*Nursing needs to send an extra Trach with patient
Addendum entered by Isis Wright 10/10/24 13:22:
Discharge plan discussed with patient's via phone
reported she will provide transport to facility via private car
Addendum entered by Isis Wright 10/10/24 10:10:
Facility NPI # [id number]
Provider NPI # [id number] (Rodriguez Tsai MD)
Original Note:
Notified PT/OT to reassess patient today. CM will submit Insurance AUTH when notes are available
Plan: Discharge to [facility] tomorrow afternoon, 10/11/2024 pending Authorization Approval
Report # [phone]
[2024-10-10] MEDS: TRANSDERM-SCOP TRANSDERM (10:19)
--- NOTE | 2024-10-10 13:25 | W.PN.HOSP.TC ---
Today's Communication/Plan
-
dc planning to SNF in 24 hours
Assessment / Plan
Assessment / Plan
Assessment:
Tongue cancer/SCC status post radiation/chemo
- Follows up with Dr. Cole coronel and had chemo therapy 1 week back.
- Patient have part of anterior tongue sloughed off from dry gangrene, sample in the room. Remaining tongue looks healthy on exam, no sign of active bleeding
- Dr. Kameron Schmidt discussed with Dr. Anglin who recommended repeat PET scan and to skip CT neck that was planned outpt as it is redundant imaging.
s/p Tracheostomy
s/p PEG tube
- patient tracheostomy in place with excessive secretion. Continue respiratory care
- Robitussin through PEG tube ordered
- PEG dislodged 10/04 and replaced by GI
- continue tube feeds
Sepsis in immunocompromise patient
- fever/tachycardia/leukocytosis
- potential source of wound around tracheostomy site, purulent drainage on wound.
- Also left lingular lobe presumed postobstructive pneumonia vs mets
- continue Levaquin/Doxycycline (PCN allergy), day 05/03. Cultures NGTD
Coag neg staph
- likely contaminant, repeat cultures NGTD
Left lingular lobe mass
- Will require transcutaneous biopsy versus PET scan, oncology to decide.
Melena/acute blood loss anemia - likely stemming from tongue bleeding trickling into GI bleed
- Total 4 unit of PRBCs this admission
- No reported hematemesis/melena. BUN normal. PEG irrigated without bloody return.
- Maintain on IV PPI for now
- Hbg 8.2
- d/w hematology on 10/09 for additional workup of anemia; labs negative for evidence of substrate deficiency or hemolysis.
Hypokalemia
- replace prn
Hyponatremia
- suspected euvolemic from malignancy vs pna.
Left-sided complex effusion
Pleuritic pain
- Patient having significant left-sided pleuritic pain. X-ray showed small effusion developing
- Chest ultrasound showed small effusion not amenable to drainage
- continue pain control
CAD
COPD
Essential HTN
Prostate cancer s/p radiation
Severe protein calorie malnutrition
DVT ppx: Lovenox
Code: DNR/DNI
Anticipated Discharge: Within 24 hours
Subjective/Interval History
-
Date of Service: October 10, 2024
no new complaints
Objective Data
-
Labs:
Laboratory Results
10/10/24
06:34
Hgb 8.2 L
Hct 24.5 L
Vital Signs:
Vital Signs
Temp Pulse Resp BP Pulse Ox
99.6 F 70 22 100/62 98
10/10/24 11:31 10/10/24 06:00 10/10/24 06:00 10/10/24 06:00 10/10/24 04:01
I&O
10/09/24 10/10/24 10/11/24
06:59 06:59 06:59
Intake Total 1060 / 1060 1060 / 1060
Output Total 1300 / 1300 1475 / 1475 600 / 600
Balance -240 / -240 -415 / -415 -600 / -600
Physical Exam
-
General: No Apparent Distress
HEENT: Normocephalic
Respiratory: Negative Wheezes
Cardiac: Regular Rhythm and S1/S2
GI: Soft and Nontender
Genito-urinary: No Costovertebral Tender
Neuro: AO x 3
Psych: Calm
Data Reviewed
-
Total Time Spent with Patient (in minutes): 41
Labs: Labs Reviewed by me
--- NOTE | 2024-10-10 17:40 | PTCARENOTE ---
Rec'd pt this AM. Remains resistent to most personal care. OOB to BSC x1. PT got pt OOB to chair but then pt quickly requested to go back to bed. Pt more cooperative in afternoon. vital signs stable. requests pain meds and Ativan q 4. Plan for d.c.
to [facility] tomorrow. Pt is to be d.c. with extra trach.
--- NOTE | 2024-10-10 21:00 | PTCARENOTE ---
Pt received at beginning of shift resting in bed. AAOx3. Speech garbled. Can be hard to understand at times. Admits to throat pain 6-04/02. Will give pain med when due. VSS. Afebrile. SR on CM. Tolerating TF Jevity 1.5 at goal of 60ml/hr with 25ml/hr
water flushes. Tube remains at 3.5cm george. Pt refuses trach care. CHG bath given. Using urinal in bed. Refuses to turn self or with assist. Rest of assessment as documented. Call fall remains within reach. Will continue to monitor.
[2024-10-11] VITALS (9 sets, daily range): BP systolic 98–125; BP diastolic 60–87
[2024-10-11] MEDS: ATIVAN 0.5 MG PO ×4 (01:59→15:17)
[2024-10-11] MEDS: ROXICODONE ORAL SOLUTION 10 MG TUBE ×4 (01:59→14:39)
[2024-10-11] MEDS: MIRALAX 17 GRAMS TUBE (08:30)
[2024-10-11] MEDS: LEVAQUIN 750 MG TUBE (08:30)
[2024-10-11] MEDS: LIDOCAINE 4% PATCH TOPICAL (08:30)
[2024-10-11] MEDS: VIBRAMYCIN 100 MG TUBE (08:31)
[2024-10-11] MEDS: PROTONIX IV 40 MG IV (08:31)
[2024-10-11] MEDS: NSS (PRESERVATIVE FREE) 10 ML IV (08:31)
--- NOTE | 2024-10-11 09:51 | CM ---
CM reviewed chart, patient auth approved for [facility]. CM placed call to , Alena, aware of discharge, will provide transportation to facility around 4:00 p.m (facility able to accept around 4:00). CM will continue to follow for all
discharge planning needs.
SNF Authorization approved; Referral # [id number]
Starting 10/11/2024
Next Review 10/15/2024; Call
Plan: Discharge to [facility] 4:00 p.m. will transport
Report # [phone]

*Nursing needs to send an extra Trach with patient
--- NOTE | 2024-10-11 10:05 | W.PN.HOSP.TC ---
Today's Communication/Plan
-
dc to SNF
Assessment / Plan
Assessment / Plan
Assessment:
Tongue cancer/SCC status post radiation/chemo
- Follows up with Dr. Cole coronel and had chemo therapy 1 week back.
- Patient have part of anterior tongue sloughed off from dry gangrene, sample in the room. Remaining tongue looks healthy on exam, no sign of active bleeding
- Dr. Kameron Schmidt discussed with Dr. Anglin who recommended repeat PET scan and to skip CT neck that was planned outpt as it is redundant imaging.
s/p Tracheostomy
s/p PEG tube
- patient tracheostomy in place with excessive secretion. Continue respiratory care
- Robitussin through PEG tube ordered
- PEG dislodged 10/04 and replaced by GI
- continue tube feeds
Sepsis in immunocompromise patient
- fever/tachycardia/leukocytosis
- potential source of wound around tracheostomy site, purulent drainage on wound.
- Also left lingular lobe presumed postobstructive pneumonia vs mets
- continue Levaquin/Doxycycline (PCN allergy), day 06/03. Cultures NGTD
Coag neg staph
- likely contaminant, repeat cultures NGTD
Left lingular lobe mass
- Will require transcutaneous biopsy versus PET scan, oncology to decide.
Melena/acute blood loss anemia - likely stemming from tongue bleeding trickling into GI bleed
- Total 4 unit of PRBCs this admission
- No reported hematemesis/melena. BUN normal. PEG irrigated without bloody return.
- PPI daily at discharge
- Hbg 8.2
- d/w hematology on 10/09 for additional workup of anemia; labs negative for evidence of substrate deficiency or hemolysis.
Hypokalemia
- replace prn
Hyponatremia
- suspected euvolemic from malignancy vs pna.
Left-sided complex effusion
Pleuritic pain
- Patient having significant left-sided pleuritic pain. X-ray showed small effusion developing
- Chest ultrasound showed small effusion not amenable to drainage
- continue pain control
CAD
COPD
Essential HTN
Prostate cancer s/p radiation
Severe protein calorie malnutrition
DVT ppx: Lovenox
Code: DNR/DNI
More than 30 minutes spent in discharge including
Final examination of the patient
Summarizing hospital stay
Instructions for continuing care to all relevant caregivers
Preparation of discharge records, prescriptions, and referral forms
Total time spent (in minutes):41
Anticipated Discharge: Today
Subjective/Interval History
-
Date of Service: October 11, 2024
no new complaints
for DC to SNF today
Objective Data
-
Vital Signs:
Vital Signs
Temp Pulse Resp BP Pulse Ox
98.7 F 68 21 101/62 98
10/10/24 19:26 10/11/24 06:00 10/11/24 06:00 10/11/24 06:00 10/11/24 02:00
I&O
10/10/24 10/11/24 10/12/24
06:59 06:59 06:59
Intake Total 1060 / 1060 1060 / 1060
Output Total 1475 / 1475 1900 / 1900
Balance -415 / -415 -840 / -840
Physical Exam
-
General: No Apparent Distress
HEENT: Normocephalic, Atraumatic and Tracheostomy Collar
Respiratory: Negative Wheezes
Cardiac: Regular Rhythm and S1/S2
GI: Soft
Genito-urinary: No Costovertebral Tender
Neuro: AO x 3
Hematologic / Lymphatic: No Lymphadenopathy
Psych: Calm
Data Reviewed
-
Total Time Spent with Patient (in minutes): 41
Labs: Labs Reviewed by me
--- NOTE | 2024-10-11 10:25 | W.DS.TRANS ---
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
-
Discharge Instructions:
Discharge Diagnosis/Procedures tongue cancer, lung mass (left), sepsis with
pneumonia, anemia requiring 4 units blood
Diet Tube feeding
Activity As tolerated
Other Services PT,OT
Instructions:
Stand-Alone Forms:
Changes to Home Medications: No
Discharge Medications:
DC Medications w/original date entered in [facility]
cyanocobalamin (vitamin B-12) 1,000 mcg tablet 1,000 mcg feeding tube DAILY Supplement 05/26/24
glycopyrrolate 1 mg/5 mL (0.2 mg/mL) oral solution 1 mg feeding tube Q6HPRN PRN secrtions 07/25/24
scopolamine base 1 mg over 3 days transdermal patch 1 patch transdermal Q3D SECRETIONS 08/15/24
acetaminophen 650 mg/20.3 mL oral solution 650 mg (20.3 mL) feeding tube Q4HPRN PRN mild pain/ fever > 100.5 #500 mL 10/11/24
doxycycline monohydrate 25 mg/5 mL oral suspension 100 mg (20 mL) feeding tube Q12H #60 mL 10/11/24
guaifenesin 100 mg/5 mL oral liquid 200 mg (10 mL) feeding tube Q6HPRN PRN cough/congestion #120 mL 10/11/24
lansoprazole 30 mg delayed release,disintegrating tablet (Prevacid SoluTab) 30 mg feeding tube DAILY #30 tabs 10/11/24
levofloxacin 750 mg tablet 750 mg feeding tube DAILY #1 tab 10/11/24
lidocaine 4 % topical patch 1 patch topical DAILY left back pain #30 ea 10/11/24
lorazepam 2 mg/mL oral concentrate (Lorazepam Intensol) 1 mg (0.5 mL) feeding tube DAILY Mental Health/Anxiety #30 mL 10/11/24
lorazepam 2 mg/mL oral concentrate (Lorazepam Intensol) 1 mg (0.5 mL) feeding tube TIDPRN PRN anxiety #30 mL 10/11/24
oxycodone 5 mg/5 mL oral solution 10 mg (10 mL) feeding tube Q4H PRN mod pain #100 mL 10/11/24
oxycodone 5 mg/5 mL oral solution 15 mg (15 mL) feeding tube Q4HPRN PRN SEVERE PAIN #100 mL 10/11/24
polyethylene glycol 3350 17 gram oral powder packet 17 g feeding tube DAILY #30 ea 10/11/24
sennosides 8.6 mg-docusate sodium 50 mg tablet 1 tab feeding tube BIDPRN PRN constipation #60 tabs 10/11/24
sennosides 8.8 mg/5 mL oral syrup 8.8 mg (5 mL) feeding tube BID PRN Constipation #120 mL 10/11/24
Home Medication Changes
Pending Results: No
Total time spent discharging patient (in min): 41
--- NOTE | 2024-10-11 15:12 | PTCARENOTE ---
pt agreed to wound care this shift prior to d/c. wound care completed by this RN. pt continued to refuse all trach care.
--- NOTE | 2024-10-11 15:54 | PTCARENOTE ---
pt discharged to SNF w/ . left unit via wheelchair w/ PCT and . port deaccessed. wound care completed prior to discharge. Pt received discharge instructions and continue of care packet for SNF. Pt understanding of discharge
instructions. Pt received full CHG bath prior to discharge. last set of VS stable. pt left hospital w/ extra trach per MD instructions. report called to nursing computer operations supervisor at [facility] prior to discharge.
[2024-10-12 02:01] LABS: Haptoglobin 389 mg/dL (30-200)
== END 2024-10-11 15:48 | DRG 871 ==
LOC: IMU 02:03
PROVIDERS: Emergency Medicine; Hospitalist; Internal Medicine Hematology & Oncology; Nurse Practitioner Family; Registered Nurse; ADMITTING PHYSICIAN Internal Medicine; ATTENDING PHYSICIAN Internal Medicine; CONSULT PHYSICIAN Internal Medicine Gastroenterology; CONSULT PHYSICIAN Internal Medicine Hematology & Oncology; EMERGENCY PHYSICIAN Student in an Organized Health Care Education/Training Program; FAMILY PHYSICIAN Nurse Practitioner Family; OTHER PHYSICIAN Internal Medicine Critical Care Medicine
PROC: 30233N1 Transfusion of Nonautologous Red Blood Cells into Peripheral Vein, Percutaneous Approach (ICD-10-PCS; 2024-10-01)
DX: A41.89 Other specified sepsis (principal); E43 Unspecified severe protein-calorie malnutrition; J18.9 Pneumonia, unspecified organism; J98.11 Atelectasis; R64 Cachexia; D62 Acute posthemorrhagic anemia; E87.1 Hypo-osmolality and hyponatremia; Z68.1 Body mass index [BMI] 19.9 or less, adult; D84.9 Immunodeficiency, unspecified; I31.39 Other pericardial effusion (noninflammatory); J44.0 Chronic obstructive pulmonary disease with (acute) lower respiratory infection; J90 Pleural effusion, not elsewhere classified; Z87.891 Personal history of nicotine dependence; Z11.52 Encounter for screening for COVID-19; C02.9 Malignant neoplasm of tongue, unspecified; Z66 Do not resuscitate; E87.6 Hypokalemia; I10 Essential (primary) hypertension; D69.6 Thrombocytopenia, unspecified; E83.51 Hypocalcemia; F41.9 Anxiety disorder, unspecified; J43.2 Centrilobular emphysema; K59.03 Drug induced constipation; Z92.21 Personal history of antineoplastic chemotherapy; Z92.3 Personal history of irradiation; Z93.0 Tracheostomy status; Z93.1 Gastrostomy status
CPT/HCPCS: 49465; 71046; 71275; 76604; 80048; 80053; 81003; 81015; 82607; 82728; 82746; 82962; 83010; 83540; 83550; 83605; 83615; 84145; 84443; 84484; 85014; 85018; 85025; 85027; 85045; 85610; 86850; 86880; 86900; 86901; 86920; 87040; 87070; 87086; 87150; 87205; 87449; 87502; 87811; 93005; 97116; 97163; 97167; 97530; 97535; P9016; Q9967

== ENCOUNTER → 2024-10-28 07:53 | Outpatient (REF) | payer BC, SELFPAY | LOC: WOUND 07:53 | PROVIDERS: ATTENDING PHYSICIAN Surgery; FAMILY PHYSICIAN Nurse Practitioner Family | DX: S11.90XA Unspecified open wound of unspecified part of neck, initial encounter (principal); C06.9 Malignant neoplasm of mouth, unspecified; L59.8 Other specified disorders of the skin and subcutaneous tissue related to radiation; Y84.2 Radiological procedure and radiotherapy as the cause of abnormal reaction of the patient, or of later complication, without mention of misadventure at the time of the procedure | CPT/HCPCS: 99214 ==

== ENCOUNTER → 2024-11-06 13:37 | Outpatient (REF) | payer BC, SELFPAY | LOC: WOUND 13:37 | PROVIDERS: ATTENDING PHYSICIAN Surgery; FAMILY PHYSICIAN Nurse Practitioner Family | DX: S11.90XA Unspecified open wound of unspecified part of neck, initial encounter (principal); C06.9 Malignant neoplasm of mouth, unspecified; L59.8 Other specified disorders of the skin and subcutaneous tissue related to radiation; Y84.2 Radiological procedure and radiotherapy as the cause of abnormal reaction of the patient, or of later complication, without mention of misadventure at the time of the procedure | CPT/HCPCS: 99213 ==

== ENCOUNTER → 2024-11-13 13:40 | Outpatient (REF) | payer BC, SELFPAY | LOC: WOUND 13:40 | PROVIDERS: ATTENDING PHYSICIAN Surgery; FAMILY PHYSICIAN Nurse Practitioner Family | DX: S11.90XA Unspecified open wound of unspecified part of neck, initial encounter (principal); C06.9 Malignant neoplasm of mouth, unspecified; L59.8 Other specified disorders of the skin and subcutaneous tissue related to radiation; Y84.2 Radiological procedure and radiotherapy as the cause of abnormal reaction of the patient, or of later complication, without mention of misadventure at the time of the procedure | CPT/HCPCS: 99213 ==

== ENCOUNTER → 2024-11-14 08:16 | Outpatient (REF) | payer BC, SELFPAY | LOC: PET 08:16 | PROVIDERS: ATTENDING PHYSICIAN Internal Medicine Hematology & Oncology | DX: Z85.818 Personal history of malignant neoplasm of other sites of lip, oral cavity, and pharynx (principal) | CPT/HCPCS: 78815; A9552 ==

== ENCOUNTER → 2024-11-18 13:23 | Outpatient (REF) | payer BC, SELFPAY ==
[2024-11-18 16:03] LABS: % Eosinophils 3.4 % (0-6); % Immature Granulocytes 0.8 % (0-0.5); % Lymphocytes 16.8 % (20.5-51.1); % Monocytes 9.6 % (1.7-9.3); % Neutrophils 68.4 % (42.2-75.2); Absolute Basophils 0.1 10^3/uL (0-0.2); Absolute Eosinophils 0.2 10^3/uL (0-0.7); Absolute Lymphocytes 0.8 10^3/uL (1.2-3.4); Absolute Monocytes 0.5 10^3/uL (0.1-0.6); Absolute Neutrophils 3.4 10^3/uL (1.4-6.5); Hematocrit 29.3 % (39.0-52.0); Hemoglobin 9.3 g/dL (13.0-18.0); Mean Corp Hgb Conc. 31.7 g/dL (33.0-37.0); Mean Corpuscular Hgb 31.5 pg (27.0-31.0); Mean Corpuscular Volume 99.3 fL (80.0-94.0); Mean Platelet Volume 9.5 fL (7.4-10.4); Nucleated Red Blood Cells % 0 % (-); Platelet Count 292 10^3/uL (130-400); Red Blood Cell Count 2.95 10^6/uL (4.70-6.10); Red Cell Dist. Width 17.2 % (11.5-14.5)
[2024-11-18 16:10] LABS: Blood Urea Nitrogen 33 mg/dl (9-20); Calcium 9.4 mg/dl (8.4-10.2); Carbon Dioxide 29 mmol/L (22-30); Chloride 99 mmol/L (98-107); Glucose 130 mg/dl (70-99); Potassium 4.6 mmol/L (3.5-5.1); Sodium 137 mmol/L (135-145); eGFR > 60.00
== END ==
LOC: HWLAB 13:23
PROVIDERS: ATTENDING PHYSICIAN Nurse Practitioner Family
DX: Z09 Encounter for follow-up examination after completed treatment for conditions other than malignant neoplasm (principal); D64.9 Anemia, unspecified
CPT/HCPCS: 36415; 80048; 85025

== ENCOUNTER → 2024-11-27 10:19 | Outpatient (REF) | payer BC, SELFPAY | LOC: WOUND 10:19 | PROVIDERS: ATTENDING PHYSICIAN Surgery; FAMILY PHYSICIAN Nurse Practitioner Family | DX: S11.90XA Unspecified open wound of unspecified part of neck, initial encounter (principal); C06.9 Malignant neoplasm of mouth, unspecified; L59.8 Other specified disorders of the skin and subcutaneous tissue related to radiation; Y84.2 Radiological procedure and radiotherapy as the cause of abnormal reaction of the patient, or of later complication, without mention of misadventure at the time of the procedure; X58.XXXA Exposure to other specified factors, initial encounter | CPT/HCPCS: 99213 ==

== ENCOUNTER → 2024-12-04 13:46 | Outpatient (REF) | payer BC, SELFPAY | LOC: WOUND 13:46 | PROVIDERS: ATTENDING PHYSICIAN Surgery; FAMILY PHYSICIAN Nurse Practitioner Family | DX: S11.90XA Unspecified open wound of unspecified part of neck, initial encounter (principal); C06.9 Malignant neoplasm of mouth, unspecified; L59.8 Other specified disorders of the skin and subcutaneous tissue related to radiation; Y84.2 Radiological procedure and radiotherapy as the cause of abnormal reaction of the patient, or of later complication, without mention of misadventure at the time of the procedure | CPT/HCPCS: 99213 ==

== ENCOUNTER → 2024-12-05 12:56 | Outpatient (REF) | payer BC, SELFPAY | LOC: RAD 12:56 | PROVIDERS: ATTENDING PHYSICIAN Otolaryngology; FAMILY PHYSICIAN Nurse Practitioner Family | DX: Z92.3 Personal history of irradiation (principal); C01 Malignant neoplasm of base of tongue | CPT/HCPCS: 70491; Q9967 ==

== ENCOUNTER → 2024-12-18 13:09 | Outpatient (REF) | payer BC, SELFPAY ==
[2024-12-18 16:09] LABS: % Basophils 0.6 % (0-2); % Eosinophils 2.7 % (0-6); % Immature Granulocytes 0.6 % (0-0.5); % Monocytes 12.2 % (1.7-9.3); % Neutrophils 71.9 % (42.2-75.2); Absolute Eosinophils 0.1 10^3/uL (0-0.7); Absolute Lymphocytes 0.6 10^3/uL (1.2-3.4); Absolute Monocytes 0.6 10^3/uL (0.1-0.6); Absolute Neutrophils 3.7 10^3/uL (1.4-6.5); Blood Urea Nitrogen 34 mg/dl (9-20); Calcium 9.5 mg/dl (8.4-10.2); Carbon Dioxide 33 mmol/L (22-30); Chloride 100 mmol/L (98-107); Glucose 97 mg/dl (70-99); Hematocrit 31.2 % (39.0-52.0); Hemoglobin 10.1 g/dL (13.0-18.0); Iron 64 ug/dl (49-181); Mean Corp Hgb Conc. 32.4 g/dL (33.0-37.0); Mean Corpuscular Hgb 31.8 pg (27.0-31.0); Mean Corpuscular Volume 98.1 fL (80.0-94.0); Mean Platelet Volume 9.4 fL (7.4-10.4); Nucleated Red Blood Cells % 0 % (-); Platelet Count 332 10^3/uL (130-400); Potassium 4.1 mmol/L (3.5-5.1); Red Blood Cell Count 3.18 10^6/uL (4.70-6.10); Red Cell Dist. Width 14.8 % (11.5-14.5); Sodium 141 mmol/L (135-145); White Blood Cell Count 5.2 10^3/uL (4.8-10.8); eGFR > 60.00
[2024-12-18 16:18] LABS: Percent Saturation 22 % (20-50); Total Iron Binding Capacity 288 ug/dl (261-462)
[2024-12-18 17:15] LABS: Vitamin B12 932 pg/ml (239-931)
== END ==
LOC: HWLAB 13:09
PROVIDERS: ATTENDING PHYSICIAN Internal Medicine Hematology & Oncology; FAMILY PHYSICIAN Nurse Practitioner Family
DX: Z85.818 Personal history of malignant neoplasm of other sites of lip, oral cavity, and pharynx (principal); C76.0 Malignant neoplasm of head, face and neck; D64.9 Anemia, unspecified; Z09 Encounter for follow-up examination after completed treatment for conditions other than malignant neoplasm
CPT/HCPCS: 36415; 80048; 82607; 82746; 83540; 83550; 85025

== ENCOUNTER → 2024-12-19 09:40 | Outpatient (REF) | payer BC, SELFPAY | LOC: WOUND 09:40 | PROVIDERS: ATTENDING PHYSICIAN Surgery; FAMILY PHYSICIAN Nurse Practitioner Family | DX: C06.9 Malignant neoplasm of mouth, unspecified (principal); L59.8 Other specified disorders of the skin and subcutaneous tissue related to radiation; Y84.2 Radiological procedure and radiotherapy as the cause of abnormal reaction of the patient, or of later complication, without mention of misadventure at the time of the procedure | CPT/HCPCS: 99213 ==

== ENCOUNTER → 2025-01-02 09:02 | Outpatient (REF) | payer BC, SELFPAY | LOC: WOUND 09:02 | PROVIDERS: ATTENDING PHYSICIAN Surgery; FAMILY PHYSICIAN Nurse Practitioner Family | DX: S11.90XA Unspecified open wound of unspecified part of neck, initial encounter (principal); C06.9 Malignant neoplasm of mouth, unspecified; L59.8 Other specified disorders of the skin and subcutaneous tissue related to radiation; Y84.2 Radiological procedure and radiotherapy as the cause of abnormal reaction of the patient, or of later complication, without mention of misadventure at the time of the procedure | CPT/HCPCS: 99213 ==

== ENCOUNTER 2025-01-03 04:55 | Emergency (ER) | payer BC, SELFPAY ==
[2025-01-03 04:57] VITALS: BP 156/91
--- NOTE | 2025-01-03 05:30 | ED.GENMED ---
History of Present Illness
General
Chief Complaint: Airway Problem
Source: patient and spouse
Exam Limitations: none
Time Seen by Provider: 01/03/25 05:09
Nursing documentation reviewed up to this point in time: agreed with
History of Present Illness
History of Present Illness:
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 Follows with specialist at [facility].
Presents tonight with his after tracheostomy tube inadvertently fell out.
She has brought a replacement tracheostomy, 8 Czech cuffless tube.
He admits to chronic cough which has been unchanged. He denies shortness of breath.
Past History
Past History
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 Sleep apnea, Anemia, )
ED Past Surgical History: Orthopedic (Bilateral total hip replacements), Urological (lithotripsies, TURP) and Other (Trach, Peg tube)
Social History
Tobacco: Former smoker
Alcohol: None
Drug: Marijuana
Personal:
Living: with family
Employment: Employed
Family History
Family History: Other (Noncontributory)
Phy Exam
Physical Exam
Physical Exam:
GENERAL: 69-year-old gentleman appears somewhat older than stated age. Bright and alert, pleasant, appears in no acute distress. is accompanying.
EYE: pupils equal and reactive. anicteric
NECK: Chronic, moderately flexed cervical spine, nontender. Tracheostomy stoma in place, clean and dry.
ENT: oral mucosa is moist. No rhinorrhea.
CARDIAC: Regular rate and rhythm. no murmur.
LUNGS: no acute respiratory distress, scant upper airway rhonchi, clears with cough.
ABDOMEN: Soft, nondistended, without focal tenderness
NEUROLOGICAL: Alert and oriented x3, no focal neuro deficits.
SKIN: Warm and dry, normal color, skin intact. No rash.
MUSCULOSKELETAL: No C/C/E. peripheral pulses are full and equal b/l. No palpable tenderness.
PSYCH: Normal and appropriate interaction.
Course
Orders/Labs/Results
Orders:
Orders
01/03/25 05:13
Lidocaine 2% [Lidocaine Uro-Jet 2%] 1 syringe .ROUTE .[employer]
Vital Signs
Initial and Last Documented VS:
Initial Vital Signs
Temp Pulse Resp BP Pulse Ox
99.0 F 96 22 156/91 97
01/03/25 04:57 01/03/25 04:57 01/03/25 04:57 01/03/25 04:57 01/03/25 04:57
Last Documented Vital Signs
Temp Pulse Resp BP Pulse Ox
99.0 F 96 22 156/91 97
01/03/25 04:57 01/03/25 04:57 01/03/25 04:57 01/03/25 04:57 01/03/25 04:57
MDM/Problems Addressed
Differential Diagnosis Includes:
Tracheal stoma site is clean, well-healed. Area prepped with ChloraPrep and local anesthesia with HurriCaine spray.
Due to concern for potential early stenosis a 6 Czech cuffed tracheal tube inserted without difficulty.
This was then removed and patient's 8 Czech uncuffed tracheal tube inserted without difficulty.
Patient tolerated procedure well. No complications.
Tracheostomy tube secured.
Will discharge to home with plan to continue care with his various specialists.
Chronic conditions affecting care: Cancer
*Pulse Oximetry
Patient hypoxic: no
*Critical Care Note
Total Time (30-74mins, 75-104mins- exclusive of procedures): Not Applicable
ED Attending Note
-
Portions of this chart may have been created with voice recognition software.� Occasional wrong word or��sound alike� substitutions may have occurred due to the inherent limitations of voice recognition software.
Discharge Plan
Departure
Patient Disposition: Home (Routine Discharge)
Date of Disposition: 01/03/25
Time of Disposition: 05:30
Patient with high blood pressure during this ER visit?: No
Condition: Good
Discharge Problem:
tracheostomy replacement
Instructions: How to care for a tracheostomy
Prescriptions:
No Action
cyanocobalamin (vitamin B-12) 1,000 mcg Tablet
1,000 mcg feeding tube DAILY
glycopyrrolate 1 mg/5 mL (0.2 mg/mL) Solution
1 mg feeding tube Q6HPRN PRN (Reason: secrtions)
scopolamine base 1 mg over 3 days Patch 3 Day
1 patch TRANSDERMAL Q3D
doxycycline monohydrate 25 mg/5 mL Suspension For Reconstitution
100 mg feeding tube Q12H Qty: 60 0RF
Rx Instructions:
next dose 10/11 PM (each dose 20mL)
lidocaine 4 % Adhesive Patch,Medicated
1 patch topical DAILY Qty: 30 0RF
polyethylene glycol 3350 17 gram Powder In Packet
17 g feeding tube DAILY Qty: 30 0RF
sennosides 8.8 mg/5 mL Syrup
8.8 mg feeding tube BID PRN (Reason: Constipation) Qty: 120 0RF
guaifenesin 100 mg/5 mL Liquid
200 mg feeding tube Q6HPRN PRN (Reason: cough/congestion) Qty: 120 0RF
levofloxacin 750 mg Tablet
750 mg feeding tube DAILY Qty: 1 0RF
acetaminophen 650 mg/20.3 mL Solution
650 mg feeding tube Q4HPRN PRN (Reason: mild pain/ fever > 100.5) Qty: 500 0RF
lansoprazole [Prevacid SoluTab] 30 mg tablet,disintegrat, delay rel
30 mg feeding tube DAILY Qty: 30 0RF
sennosides-docusate sodium 8.6-50 mg Tablet
1 tab feeding tube BIDPRN PRN (Reason: constipation) Qty: 60 0RF
lorazepam 2 mg/mL concentrate
1 mg feeding tube TID PRN (Reason: agitation) Qty: 30 0RF
lorazepam 2 mg/mL concentrate
1 mg PO DAILY Qty: 30 0RF
oxycodone 5 mg/5 mL solution
10 mg PO Q4H Qty: 60 0RF
oxycodone 5 mg/5 mL solution
15 mg PO Q6H PRN (Reason: Pain) Qty: 60 0RF
Interventions
Interventions:
*Risk Screen - Suicide Last Done: 01/03/25 04:57
*Nursing Disposition Last Done: 01/03/25 06:13
ED- Pulmonary Assessment Last Done: 01/03/25 05:54
Discharge Date and Time
Discharge Date/Time: 01/03/25 06:13
Print Language: YI
== END 2025-01-03 06:13 | disposition home or self-care (01) ==
LOC: EMR 04:55
PROVIDERS: EMERGENCY PHYSICIAN Emergency Medicine
DX: Z43.0 Encounter for attention to tracheostomy (principal); C32.9 Malignant neoplasm of larynx, unspecified; G47.30 Sleep apnea, unspecified; I10 Essential (primary) hypertension; Z87.891 Personal history of nicotine dependence; Z90.79 Acquired absence of other genital organ(s)
CPT/HCPCS: 99283

== ENCOUNTER 2025-01-03 18:50 | Emergency (ER) | payer BC, SELFPAY ==
[2025-01-03 18:59] VITALS: BP 158/78
--- NOTE | 2025-01-03 21:16 | ED.GENMED ---
History of Present Illness
General
Chief Complaint: Airway Problem
Source: patient and spouse
Time Seen by Provider: 01/03/25 19:18
History of Present Illness
History of Present Illness:
69-year-old male brought to the emergency room by after he inadvertently were perhaps intentionally removed his tracheostomy. 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 Patient is
having discomfort on the right side of his face which is exacerbated by the strap of the tracheostomy. His theorizes this may be the reason that the tracheostomy is falling out because he is manipulating the strap. That area of pain is
thought to be recurrence of his cancer and is being evaluated by his oncology team. Patient's does have a replacement trach with her.
Past History
Past History
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 Sleep apnea, Anemia, )
ED Past Surgical History: Orthopedic (Bilateral total hip replacements), Urological (lithotripsies, TURP) and Other (Trach, Peg tube)
Social History
Tobacco: Former smoker
Alcohol: None
Drug: Marijuana
Personal:
Living: with family
Employment: Employed
Family History
Family History: Other (Noncontributory)
Phy Exam
Physical Exam
Physical Exam:
General: Awake, Alert, Oriented X3. Appears cachectic and chronically ill
Vitals: unremarkable
Head: Atraumatic
Eyes: Pupils equal, EOMI
Throat: Airway intact, no exudates
Neck: Trachea midline, significant kyphosis. Tracheostomy stoma noted
Lungs: Clear and equal b/l
Heart: Regular rate, no murmurs
Neuro: Nonfocal
Skin: Warm, dry, no rash
Extremities: pulses equal b/l, no edema
Course
Vital Signs
Initial and Last Documented VS:
Initial Vital Signs
Temp Pulse Resp BP Pulse Ox
99.2 F 83 24 158/78 100
01/03/25 18:59 01/03/25 18:59 01/03/25 18:59 01/03/25 18:59 01/03/25 18:59
Last Documented Vital Signs
Temp Pulse Resp BP Pulse Ox
99.2 F 83 24 158/78 100
01/03/25 18:59 01/03/25 18:59 01/03/25 18:59 01/03/25 18:59 01/03/25 18:59
MDM/Problems Addressed
Differential Diagnosis Includes:
Tracheostomy displaced
MDM/Problems Addressed:
Tracheostomy replaced with this replacement device provided by the patient's . He was able to fairly easily be placed in the stoma. Retention strap placed. Inner cannula placed.
*Pulse Oximetry
Patient hypoxic: no
*Critical Care Note
Total Time (30-74mins, 75-104mins- exclusive of procedures): Not Applicable
ED Attending Note
-
Portions of this chart may have been created with voice recognition software.� Occasional wrong word or��sound alike� substitutions may have occurred due to the inherent limitations of voice recognition software.
Discharge Plan
Departure
Patient Disposition: Home (Routine Discharge)
Date of Disposition: 01/03/25
Time of Disposition: 21:16
Patient with high blood pressure during this ER visit?: Yes
Condition: Good
Discharge Problem:
Acute tracheostomy management
Instructions: How to care for a tracheostomy
Prescriptions:
No Action
cyanocobalamin (vitamin B-12) 1,000 mcg Tablet
1,000 mcg feeding tube DAILY
glycopyrrolate 1 mg/5 mL (0.2 mg/mL) Solution
1 mg feeding tube Q6HPRN PRN (Reason: secrtions)
scopolamine base 1 mg over 3 days Patch 3 Day
1 patch TRANSDERMAL Q3D
doxycycline monohydrate 25 mg/5 mL Suspension For Reconstitution
100 mg feeding tube Q12H Qty: 60 0RF
Rx Instructions:
next dose 10/11 PM (each dose 20mL)
lidocaine 4 % Adhesive Patch,Medicated
1 patch topical DAILY Qty: 30 0RF
polyethylene glycol 3350 17 gram Powder In Packet
17 g feeding tube DAILY Qty: 30 0RF
sennosides 8.8 mg/5 mL Syrup
8.8 mg feeding tube BID PRN (Reason: Constipation) Qty: 120 0RF
guaifenesin 100 mg/5 mL Liquid
200 mg feeding tube Q6HPRN PRN (Reason: cough/congestion) Qty: 120 0RF
levofloxacin 750 mg Tablet
750 mg feeding tube DAILY Qty: 1 0RF
acetaminophen 650 mg/20.3 mL Solution
650 mg feeding tube Q4HPRN PRN (Reason: mild pain/ fever > 100.5) Qty: 500 0RF
lansoprazole [Prevacid SoluTab] 30 mg tablet,disintegrat, delay rel
30 mg feeding tube DAILY Qty: 30 0RF
sennosides-docusate sodium 8.6-50 mg Tablet
1 tab feeding tube BIDPRN PRN (Reason: constipation) Qty: 60 0RF
lorazepam 2 mg/mL concentrate
1 mg feeding tube TID PRN (Reason: agitation) Qty: 30 0RF
lorazepam 2 mg/mL concentrate
1 mg PO DAILY Qty: 30 0RF
oxycodone 5 mg/5 mL solution
10 mg PO Q4H Qty: 60 0RF
oxycodone 5 mg/5 mL solution
15 mg PO Q6H PRN (Reason: Pain) Qty: 60 0RF
Referrals:
Kwame Kendrick CRNP [Family Provider] -
Interventions
Interventions:
*Risk Screen - Suicide Last Done: 01/03/25 18:59
*General Assessment Last Done: 01/03/25 18:59
*Neglect/Abuse Screening Last Done: 01/03/25 18:59
*ED- Fall Risk Assessment Last Done: 01/03/25 18:59
*ED COVID-19 Vaccine History Last Done: 01/03/25 18:59
*Nursing Disposition Last Done: 01/03/25 21:59
ED- Pulmonary Assessment Last Done: 01/03/25 20:06
Discharge Date and Time
Discharge Date/Time: 01/03/25 21:59
Print Language: KIS[place]HILI
== END 2025-01-03 21:59 | disposition home or self-care (01) ==
LOC: EMR 18:50
PROVIDERS: EMERGENCY PHYSICIAN Emergency Medicine; FAMILY PHYSICIAN Nurse Practitioner Family
DX: Z43.0 Encounter for attention to tracheostomy (principal); C14.0 Malignant neoplasm of pharynx, unspecified; C02.9 Malignant neoplasm of tongue, unspecified; I10 Essential (primary) hypertension
CPT/HCPCS: 99283

== ENCOUNTER 2025-01-04 02:01 | Emergency (ER) | payer BC, SELFPAY ==
[2025-01-04 02:04] VITALS: BP 148/82
--- NOTE | 2025-01-04 02:24 | ED.GENMED ---
History of Present Illness
General
Chief Complaint: Catheter/Tube Problem
Source: patient and previous hospital records (Evaluated by myself last night and again at 7 PM this evening by Dr. Fregoso for similar complaint of inadvertent tracheostomy tube dislodgment.)
Exam Limitations: none
Time Seen by Provider: 01/04/25 02:13
Nursing documentation reviewed up to this point in time: agreed with
History of Present Illness
History of Present Illness:
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
He follows with specialist at [facility].
More recently has been having increased right facial pain thought to be recurrence of cancer and as such he has been loosening his tracheostomy ties and inadvertently coughing out his tracheostomy tube.
He presents to the ED after admittedly loosening his ties and the tracheostomy fell out.
Similar presentation on two previous occurrences within the past 24 hours.
He does have a mild chronic cough but denies shortness of breath. No fever no chills, no chest pain.
Past History
Past History
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 Sleep apnea, Anemia, )
ED Past Surgical History: Orthopedic (Bilateral total hip replacements), Urological (lithotripsies, TURP) and Other (Trach, Peg tube)
Social History
Tobacco: Former smoker
Alcohol: None
Drug: Marijuana
Personal:
Living: with family
Employment: Employed
Family History
Family History: Other (Noncontributory)
Phy Exam
Physical Exam
Physical Exam:
GENERAL: 69-year-old gentleman appears somewhat older than stated age. Bright and alert, pleasant, appears in no acute distress. Daughter is accompanying.
EYE: anicteric
NECK: Chronic, moderately flexed cervical spine, nontender. Tracheostomy stoma in place, clean and dry.
ENT: oral mucosa is moist. No rhinorrhea.
CARDIAC: Regular rate and rhythm. no murmur.
LUNGS: no acute respiratory distress, scant upper airway rhonchi, clears with cough.
ABDOMEN: Soft, nondistended, without focal tenderness
NEUROLOGICAL: Alert and oriented x3, no focal neuro deficits.
SKIN: Warm and dry, normal color, skin intact. No rash.
MUSCULOSKELETAL: No C/C/E. peripheral pulses are full and equal b/l. No palpable tenderness.
PSYCH: Normal and appropriate interaction
Course
Orders/Labs/Results
Orders:
Orders
01/04/25 02:17
Lidocaine 2% [Lidocaine Uro-Jet 2%] 1 syringe .ROUTE .[facility]-MED ONE
Vital Signs
Initial and Last Documented VS:
Initial Vital Signs
Temp Pulse Resp BP Pulse Ox
97.8 F 100 24 148/82 97
01/04/25 02:04 01/04/25 02:04 01/04/25 02:04 01/04/25 02:04 01/04/25 02:04
Last Documented Vital Signs
Temp Pulse Resp BP Pulse Ox
97.8 F 100 24 148/82 97
01/04/25 02:04 01/04/25 02:04 01/04/25 02:04 01/04/25 02:04 01/04/25 02:04
MDM/Problems Addressed
Differential Diagnosis Includes:
Patient presents for third time in the past 24 hours with tracheostomy tube dislodgment.
8 Romanian uncuffed tracheostomy tube reinserted without difficulty.
Tube firmly secured with soft foam tracheostomy strap and I have encouraged the patient to keep the straps firmly in place to hopefully prevent tracheostomy dislodgment going forward.
He continues to have no respiratory distress.
Encouraged prompt follow-up with his tracheostomy specialist this week.
Chronic conditions affecting care: Cancer
*Pulse Oximetry
Patient hypoxic: no
*Critical Care Note
Total Time (30-74mins, 75-104mins- exclusive of procedures): Not Applicable
ED Attending Note
-
Portions of this chart may have been created with voice recognition software.� Occasional wrong word or��sound alike� substitutions may have occurred due to the inherent limitations of voice recognition software.
Discharge Plan
Departure
Patient Disposition: Home (Routine Discharge)
Date of Disposition: 01/04/25
Time of Disposition: :25
Patient with high blood pressure during this ER visit?: No
Condition: Good
Discharge Problem:
Acute tracheostomy management, tracheostomy tube replacement
Instructions: How to care for a tracheostomy
Prescriptions:
No Action
cyanocobalamin (vitamin B-12) 1,000 mcg Tablet
1,000 mcg feeding tube DAILY
glycopyrrolate 1 mg/5 mL (0.2 mg/mL) Solution
1 mg feeding tube Q6HPRN PRN (Reason: secrtions)
scopolamine base 1 mg over 3 days Patch 3 Day
1 patch TRANSDERMAL Q3D
doxycycline monohydrate 25 mg/5 mL Suspension For Reconstitution
100 mg feeding tube Q12H Qty: 60 0RF
Rx Instructions:
next dose 1/18 PM (each dose 20mL)
lidocaine 4 % Adhesive Patch,Medicated
1 patch topical DAILY Qty: 30 0RF
polyethylene glycol 3350 17 gram Powder In Packet
17 g feeding tube DAILY Qty: 30 0RF
sennosides 8.8 mg/5 mL Syrup
8.8 mg feeding tube BID PRN (Reason: Constipation) Qty: 120 0RF
guaifenesin 100 mg/5 mL Liquid
200 mg feeding tube Q6HPRN PRN (Reason: cough/congestion) Qty: 120 0RF
levofloxacin 750 mg Tablet
750 mg feeding tube DAILY Qty: 1 0RF
acetaminophen 650 mg/20.3 mL Solution
650 mg feeding tube Q4HPRN PRN (Reason: mild pain/ fever > 100.5) Qty: 500 0RF
lansoprazole [Prevacid SoluTab] 30 mg tablet,disintegrat, delay rel
30 mg feeding tube DAILY Qty: 30 0RF
sennosides-docusate sodium 8.6-50 mg Tablet
1 tab feeding tube BIDPRN PRN (Reason: constipation) Qty: 60 0RF
lorazepam 2 mg/mL concentrate
1 mg feeding tube TID PRN (Reason: agitation) Qty: 30 0RF
lorazepam 2 mg/mL concentrate
1 mg PO DAILY Qty: 30 0RF
oxycodone 5 mg/5 mL solution
10 mg PO Q4H Qty: 60 0RF
oxycodone 5 mg/5 mL solution
15 mg PO Q6H PRN (Reason: Pain) Qty: 60 0RF
Discharge Date and Time
Print Language: YORUBA
[2025-01-04 02:36] VITALS: BP 135/83
== END 2025-01-04 02:52 | disposition home or self-care (01) ==
LOC: EMR 02:01
PROVIDERS: EMERGENCY PHYSICIAN Emergency Medicine; FAMILY PHYSICIAN Nurse Practitioner Family
DX: Z43.0 Encounter for attention to tracheostomy (principal); I10 Essential (primary) hypertension; Z85.810 Personal history of malignant neoplasm of tongue; Z85.818 Personal history of malignant neoplasm of other sites of lip, oral cavity, and pharynx; Z87.891 Personal history of nicotine dependence; Z90.79 Acquired absence of other genital organ(s); G47.30 Sleep apnea, unspecified
CPT/HCPCS: 99283

== ENCOUNTER 2025-01-05 01:54 | Emergency (ER) | payer BC, SELFPAY ==
[2025-01-05 01:57] VITALS: BP 134/78
[2025-01-05 02:06] VITALS: BP 145/90
[2025-01-05 02:09] VITALS: BMI 18.5
[2025-01-05] MEDS: LET TOPICAL ANESTHETIC GEL 3 ML TOPICAL (02:11)
--- NOTE | 2025-01-05 02:28 | ED.GENMED ---
History of Present Illness
General
Chief Complaint: Catheter/Tube Problem
Source: patient, spouse and previous hospital records
Exam Limitations: none
Time Seen by Provider: 01/05/25 02:08
Nursing documentation reviewed up to this point in time: agreed with
History of Present Illness
History of Present Illness:
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
He follows with specialist at [facility] [address].
More recently has been having increased right facial pain thought to be recurrence of cancer and as such he has been loosening his tracheostomy ties and inadvertently coughing out his tracheostomy tube.
He presents to the ED after admittedly loosening his ties and the tracheostomy fell out.
Similar presentation on 3 previous occurrences within the past 48 hours.
He does have a mild chronic cough but denies shortness of breath. No fever no chills, no chest pain.
Past History
Past History
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 Sleep apnea, Anemia, )
ED Past Surgical History: Orthopedic (Bilateral total hip replacements), Urological (lithotripsies, TURP) and Other (Trach, Peg tube)
Social History
Tobacco: Former smoker
Alcohol: None
Drug: Marijuana
Personal:
Living: with family
Employment: Employed
Family History
Family History: Other (Noncontributory)
Phy Exam
Physical Exam
Physical Exam:
GENERAL: 69-year-old gentleman appears somewhat older than stated age. Bright and alert, pleasant, appears in no acute distress. is accompanying.
EYE: anicteric
NECK: Chronic, moderately flexed cervical spine, nontender. Tracheostomy stoma in place, clean and dry.
ENT: oral mucosa is moist. No rhinorrhea.
CARDIAC: Regular rate and rhythm. no murmur.
LUNGS: no acute respiratory distress, scant upper airway rhonchi, clears with cough.
ABDOMEN: Soft, nondistended, without focal tenderness. PEG tube site with scant crusty debris about the site but no erythema, no soft tissue swelling.
NEUROLOGICAL: Alert and oriented x3, no focal neuro deficits.
SKIN: Warm and dry, normal color, skin intact. No rash.
MUSCULOSKELETAL: No C/C/E. peripheral pulses are full and equal b/l. No palpable tenderness.
PSYCH: Normal and appropriate interaction
Course
Orders/Labs/Results
Orders:
Orders
01/05/25 02:10
Lidocaine/Epinephrine/Tetracai [Let Topical Anesthetic Gel] 3 ml .ROUTE .STK-MED ONE
01/05/25 02:11
Lidocaine/Epinephrine/Tetracai [Let Topical Anesthetic Gel] 3 ml TOPICAL NOW STA
01/05/25 02:15
Lidocaine 2% [Lidocaine Uro-Jet 2%] 1 syringe .ROUTE .STK-MED ONE
Vital Signs
Initial and Last Documented VS:
Initial Vital Signs
Temp Pulse Resp BP Pulse Ox
97.8 F 88 20 134/78 96
01/05/25 01:57 01/05/25 01:57 01/05/25 01:57 01/05/25 01:57 01/05/25 01:57
Last Documented Vital Signs
Temp Pulse Resp BP Pulse Ox
98.2 F 88 20 145/90 98
01/05/25 02:09 01/05/25 01:57 01/05/25 01:57 01/05/25 02:06 01/05/25 02:07
MDM/Problems Addressed
Differential Diagnosis Includes:
Patient presents for fourth time in the past 48 hours with tracheostomy tube dislodgment.
8 [place] uncuffed tracheostomy tube reinserted without difficulty.
Tube firmly secured with soft foam tracheostomy strap and I have encouraged the patient to keep the straps firmly in place to hopefully prevent tracheostomy dislodgment going forward.
He continues to have no respiratory distress.
Encouraged prompt follow-up with his tracheostomy specialist this week.
Chronic conditions affecting care: Cancer
*Pulse Oximetry
Patient hypoxic: no
*Critical Care Note
Total Time (30-74mins, 75-104mins- exclusive of procedures): Not Applicable
ED Attending Note
-
Portions of this chart may have been created with voice recognition software.� Occasional wrong word or��sound alike� substitutions may have occurred due to the inherent limitations of voice recognition software.
Discharge Plan
Departure
Patient Disposition: Home (Routine Discharge)
Date of Disposition: 01/05/25
Time of Disposition: 02:32
Patient with high blood pressure during this ER visit?: No
Condition: Good
Discharge Problem:
Acute tracheostomy management, Replacement of tracheostomy tube
Instructions: How to care for a tracheostomy
Prescriptions:
No Action
cyanocobalamin (vitamin B-12) 1,000 mcg Tablet
1,000 mcg feeding tube DAILY
glycopyrrolate 1 mg/5 mL (0.2 mg/mL) Solution
1 mg feeding tube Q6HPRN PRN (Reason: secrtions)
scopolamine base 1 mg over 3 days Patch 3 Day
1 patch TRANSDERMAL Q3D
doxycycline monohydrate 25 mg/5 mL Suspension For Reconstitution
100 mg feeding tube Q12H Qty: 60 0RF
Rx Instructions:
next dose 18 PM (each dose 20mL)
lidocaine 4 % Adhesive Patch,Medicated
1 patch topical DAILY Qty: 30 0RF
polyethylene glycol 3350 17 gram Powder In Packet
17 g feeding tube DAILY Qty: 30 0RF
sennosides 8.8 mg/5 mL Syrup
8.8 mg feeding tube BID PRN (Reason: Constipation) Qty: 120 0RF
guaifenesin 100 mg/5 mL Liquid
200 mg feeding tube Q6HPRN PRN (Reason: cough/congestion) Qty: 120 0RF
levofloxacin 750 mg Tablet
750 mg feeding tube DAILY Qty: 1 0RF
acetaminophen 650 mg/20.3 mL Solution
650 mg feeding tube Q4HPRN PRN (Reason: mild pain/ fever > 100.5) Qty: 500 0RF
lansoprazole [Prevacid SoluTab] 30 mg tablet,disintegrat, delay rel
30 mg feeding tube DAILY Qty: 30 0RF
sennosides-docusate sodium 8.6-50 mg Tablet
1 tab feeding tube BIDPRN PRN (Reason: constipation) Qty: 60 0RF
lorazepam 2 mg/mL concentrate
1 mg feeding tube TID PRN (Reason: agitation) Qty: 30 0RF
lorazepam 2 mg/mL concentrate
1 mg PO DAILY Qty: 30 0RF
oxycodone 5 mg/5 mL solution
10 mg PO Q4H Qty: 60 0RF
oxycodone 5 mg/5 mL solution
15 mg PO Q6H PRN (Reason: Pain) Qty: 60 0RF
Interventions
Interventions:
*Risk Screen - Suicide Last Done: 01/05/25 01:55
*Neglect/Abuse Screening Last Done: 01/05/25 01:55
Discharge Date and Time
Print Language: SETSWANA
[2025-01-05] MEDS: ROXICODONE ORAL SOLUTION 10 MG TUBE (02:42)
[2025-01-05 02:51] VITALS: BP 145/90
== END 2025-01-05 03:11 | disposition home or self-care (01) ==
LOC: EMR 01:54
PROVIDERS: EMERGENCY PHYSICIAN Emergency Medicine; FAMILY PHYSICIAN Nurse Practitioner Family
DX: Z43.0 Encounter for attention to tracheostomy (principal); C32.9 Malignant neoplasm of larynx, unspecified; C02.9 Malignant neoplasm of tongue, unspecified; I10 Essential (primary) hypertension; G47.30 Sleep apnea, unspecified; Z87.891 Personal history of nicotine dependence
CPT/HCPCS: 99283

== ENCOUNTER → 2025-01-16 09:14 | Outpatient (REF) | payer BC, SELFPAY | LOC: WOUND 09:14 | PROVIDERS: ATTENDING PHYSICIAN Surgery; FAMILY PHYSICIAN Nurse Practitioner Family | DX: S11.90XA Unspecified open wound of unspecified part of neck, initial encounter (principal); C06.9 Malignant neoplasm of mouth, unspecified; L59.8 Other specified disorders of the skin and subcutaneous tissue related to radiation; Y84.2 Radiological procedure and radiotherapy as the cause of abnormal reaction of the patient, or of later complication, without mention of misadventure at the time of the procedure | CPT/HCPCS: 99213 ==

== ENCOUNTER 2025-01-29 08:23 | Outpatient (RCR) | payer BC, SELFPAY ==
[2025-01-27 14:18] VITALS: BP 146/74
[2025-01-27 14:54] LABS: % Basophils 0.1 % (0-2); % Eosinophils 0.1 % (0-6); % Immature Granulocytes 0.6 % (0-0.5); % Lymphocytes 2.4 % (20.5-51.1); % Monocytes 2.1 % (1.7-9.3); % Neutrophils 94.7 % (42.2-75.2); Absolute Immature Granulocytes 0.1 10^3/uL (0-0.05); Absolute Lymphocytes 0.2 10^3/uL (1.2-3.4); Absolute Monocytes 0.2 10^3/uL (0.1-0.6); Absolute Neutrophils 7.6 10^3/uL (1.4-6.5); Hematocrit 26.8 % (39.0-52.0); Hemoglobin 8.9 g/dL (13.0-18.0); Mean Corp Hgb Conc. 33.2 g/dL (33.0-37.0); Mean Corpuscular Hgb 31.4 pg (27.0-31.0); Mean Corpuscular Volume 94.7 fL (80.0-94.0); Mean Platelet Volume 9.1 fL (7.4-10.4); Nucleated Red Blood Cells % 0 % (-); Platelet Count 322 10^3/uL (130-400); Red Blood Cell Count 2.83 10^6/uL (4.70-6.10); Red Cell Dist. Width 14.2 % (11.5-14.5)
[2025-01-27 15:31] LABS: ALT (SGPT) 21 U/L (0-50); AST (SGOT) 18 U/L (17-59); Albumin 3.9 g/dl (3.5-5.0); Alkaline Phosphatase 84 U/L (38-126); Blood Urea Nitrogen 21 mg/dl (9-20); Calcium 8.9 mg/dl (8.4-10.2); Carbon Dioxide 32 mmol/L (22-30); Chloride 94 mmol/L (98-107); Glucose 148 mg/dl (70-99); Potassium 3.9 mmol/L (3.5-5.1); Sodium 136 mmol/L (135-145); Total Bilirubin 0.6 mg/dl (0.2-1.3); eGFR > 60.00
[2025-01-27 15:40] LABS: TSH Reflex To Free T4 0.28 uIU/ml (0.47-4.68)
[2025-01-27 16:09] LABS: Free T4 1.33 ng/dl (0.78-2.19)
--- NOTE | 2025-01-29 09:10 | PTCARENOTE ---
Addendum entered by Zohra Gray RN 01/29/25 09:56:
CBC results report to Ray Bauman NP HGB at 8.8 Pt reported that his breathing has been more difficult since epoxide of hemoptysis and has ' tightness in throat'
Pt transferred to ED via wheelchair as advised by Ray Bauman NP Report tiger text to ED call in patient group, called charge nurse spoke to Najma.
Original Note:
0830 Pt arrived accompanied by his brother. Pt c/o episodes of coughing up blood during the night few episodes over a two hour period. 'had 2 large clots'. No bleeding at this time. [place] text sent to Ray Bauman NP repeating cbc urgent.
[2025-01-29 09:12] LABS: % Basophils 0.1 % (0-2); % Immature Granulocytes 0.2 % (0-0.5); % Lymphocytes 5.1 % (20.5-51.1); % Monocytes 7.7 % (1.7-9.3); % Neutrophils 85.9 % (42.2-75.2); Absolute Eosinophils 0.1 10^3/uL (0-0.7); Absolute Lymphocytes 0.4 10^3/uL (1.2-3.4); Absolute Monocytes 0.6 10^3/uL (0.1-0.6); Hematocrit 26.7 % (39.0-52.0); Hemoglobin 8.8 g/dL (13.0-18.0); Mean Corpuscular Hgb 31.3 pg (27.0-31.0); Mean Platelet Volume 8.8 fL (7.4-10.4); Platelet Count 306 10^3/uL (130-400); Red Blood Cell Count 2.81 10^6/uL (4.70-6.10); Red Cell Dist. Width 14.3 % (11.5-14.5); White Blood Cell Count 8.2 10^3/uL (4.8-10.8)
[2025-01-29 09:13] VITALS: BP 152/80
== END 2025-02-21 23:59 | disposition home or self-care (01) ==
LOC: OID 08:23
PROVIDERS: ATTENDING PHYSICIAN Internal Medicine Hematology & Oncology
DX: C76.0 Malignant neoplasm of head, face and neck (principal); Z85.818 Personal history of malignant neoplasm of other sites of lip, oral cavity, and pharynx; Z87.891 Personal history of nicotine dependence
CPT/HCPCS: 36415; 36591; 80053; 84439; 84443; 85025

== ENCOUNTER 2025-01-29 15:02 | Inpatient (IN) | payer BC, SELFPAY ==
[2025-01-29] VITALS (57 sets, daily range): BP systolic 105–172; BP diastolic 63–102; BMI 18.3
[2025-01-29] MEDS: DILAUDID 1 MG IV ×2 (10:44→12:05)
[2025-01-29 11:24] LABS: ALT (SGPT) 17 U/L (0-50); AST (SGOT) 18 U/L (17-59); Albumin 3.5 g/dl (3.5-5.0); Alkaline Phosphatase 75 U/L (38-126); Blood Urea Nitrogen 22 mg/dl (9-20); Carbon Dioxide 33 mmol/L (22-30); Chloride 95 mmol/L (98-107); Glucose 120 mg/dl (70-99); Potassium 3.7 mmol/L (3.5-5.1); Sodium 136 mmol/L (135-145); Total Bilirubin 1.1 mg/dl (0.2-1.3); Total Protein 6.6 g/dl (6.3-8.2); eGFR > 60.00
[2025-01-29] MEDS: ROXICODONE 15 MG PO (13:39)
--- NOTE | 2025-01-29 13:42 | ED.GENMED ---
History of Present Illness
<Dewey Monique PA-C - Last Filed: 01/29/25 16:24>
General
Chief Complaint: Breathing Problem
Time Seen by Provider: 01/29/25 10:32
History of Present Illness
History of Present Illness:
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 He states bleeding began overnight. He is status post tracheostomy but
states he has not had any blood coming out of the trach. Reporting some difficulty breathing at this time. Denies any lightheadedness or weakness. Presented for his outpatient chemoinfusion today however was deferred to the ED due to hemoptysis.
He is not on anticoagulants
Past History
<Dewye Monique PA-C - Last Filed: 01/29/25 16:24>
Past History
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 Sleep apnea, Anemia, )
ED Past Surgical History: Orthopedic (Bilateral total hip replacements), Urological (lithotripsies, TURP) and Other (Trach, Peg tube)
Social History
Tobacco: Former smoker
Alcohol: None
Drug: Marijuana
Personal:
Living: with family
Employment: Employed
Family History
Family History: Other (Noncontributory)
Review of Systems
<Dewey Monique PA-C - Last Filed: 01/29/25 16:24>
Review of Systems
Allergies reviewed?: Yes
All Other Systems: ROS reviewed and negative except as documented in HPI and ROS
Phy Exam
<Dewey Monique PA-C - Last Filed: 01/29/25 16:24>
Physical Exam
Physical Exam:
GEN: Well appearing, NAD, WDWN
HEENT: Oral mucosa moist, no scleral icterus. Significant baseline trismus due to prior oropharyngeal surgery, unable to visualize the oropharynx, no active bleeding seen from the mouth at present, no epistaxis
Cardiac: Regular rate
Lung: No respiratory distress, no tachypnea, lungs clear
MSK: No gross deformity or injuries
Skin: Good color, no pallor or jaundice, no rashes
Neuro: AO x3, moves all extremities freely
Psych: Calm, cooperative
Scores
<Dewey Monique PA-C - Last Filed: 01/29/25 16:24>
Heart Failure Risk
Heart Failure Risk Score: Not Applicable
Course
<Dewey Monique PA-C - Last Filed: 01/29/25 16:24>
Orders/Labs/Results
Orders:
Orders
01/29/25 10:40
HYDROmorphone [Dilaudid] 1 mg IV NOW STA
01/29/25 10:43
Heparin Pf [Heparin Lock Flush] 500 unit .ROUTE .STK-MED ONE
01/29/25 10:47
CT Chest Angio W/wo Iv Contras Urgent
Comment:
Reason For Exam: hemoptysis
01/29/25 10:53
Comprehensive Metabolic Panel Urgent
01/29/25 11:54
HYDROmorphone [Dilaudid] 1 mg IV NOW STA
01/29/25 12:04
Heparin Pf [Heparin Lock Flush] 500 unit .ROUTE .STK-MED ONE
01/29/25 13:30
Oxycodone [Roxicodone] 15 mg PO NOW STA
01/29/25 14:08
Code Status As Directed
Resuscitation Status: Do not resuscitate
Reached after discussion with pt or family/Healthcare POA: Yes
PRN Pain Medication Management As Directed
May give lesser potent ordered pain med per pt: Yes
preference::
Protocol:: Medication orders for pain may be administered in a
manner that supports deferring to patient preference
when the pt is:
- Requesting an ordered lesser potent pain medication.
Least to most potent pain medications are defined
as: acetaminophen < NSAID < tramadol < opioids
(morphine, oxycodone, hydromorphone).
- Requesting a lesser dose of the same medication IF
ORDERED.
- Requesting a less intrusive route of administration
if both routes are prescribed by the provider (PO <
IV).
01/29/25 14:13
DNR Bracelet Application ONCE
01/29/25 14:[address] Non Medication Order As Directed
Physician Order: please TT me when home med rec complete
01/29/25 14:30
Tranexamic Acid 1000 mg/100 ml [Tranexamic Acid] 1,000 mg in 100 ml IV ONCE
01/29/25 14:47
ASA Classification Routine
Fentanyl Citrate/Pf [Sublimaze] 100 mcg IV NOW STA
Propofol [Diprivan] 100 mg IV NOW STA
01/29/25 14:48
CT Angio Neck W/Wo Iv Contrast [CT Neck Angio W/wo Iv Contrast] Urgent
Comment:
Reason For Exam: upper airway hemorrhage
Triglycerides Routine
Comment: baseline levels with propofol infusion
Fentanyl Citrate/Pf [Sublimaze] 100 mcg .ROUTE .STK-MED ONE
Propofol 1,000,000 Mcg/100 ml [Diprivan] 1,000,000 mcg in 100 ml .ROUTE .STK-MED
Propofol [Diprivan] 20 ml .ROUTE .STK-MED
01/29/25 15:00
Propofol 1,000,000 Mcg/100 ml [Diprivan] 1,000,000 mcg in 100 ml IV PER PROTOCOL
Indication:: Deep Sedation
Begin Infusion:: Now
Goal:: RASS -3 to -5 or BIS < 60 or ventilator synchrony
Maximum dose in mcg/kg/min:: 50
Initial Dose in mcg/kg/min:: 50
Titration Instructions:: Titrate by 5-10 mcg/kg/min every 5 minutes until RASS -3 to -5 or
Titration Instructions:: BIS < 60 or ventilator synchrony is met.
Titration Instructions:: Administer analgesia bolus dose(s) & titrate analgesia prior to
Titration Instructions:: adjusting sedation.
Taper Instructions:: If RASS is at or below goal for 4 consecutive hours decrease infusion by
Taper Instructions:: 5-10 mcg/kg/min every 2 hours. Do not wean infusion to off if patient is
Taper Instructions:: receiving a continuous NMBA or has received bolus NMBA with the past 3 hrs
Over-sedation Instructions:: If BIS < 40 and synchronous with ventilator decrease infusion by
Over-sedation Instructions:: 5-10 mcg/kg/min every 2 hour until BIS = 40-60.
Notify provider:: immediately if patient exhibits signs/symptoms of propofol-related
Notify provider:: infusion syndrome.
Additional Instructions:: Patient MUST be mechanically ventilated and MUST receive analgesia.
01/29/25 15:27
Hemoglobin Urgent
01/31/25 11:00
DC Protocol for Telemetry ONCE
02/01/25 06:00
Triglycerides Q3D
Comment: every 72 hours while patient is on propofol
02/04/25 06:00
Triglycerides Q3D
Comment: every 72 hours while patient is on propofol
02/07/25 06:00
Triglycerides Q3D
Comment: every 72 hours while patient is on propofol
Abnormal Lab Results
01/29/25
10:53
Chloride 95 L mmol/L
(98-107)
Carbon Dioxide 33 H mmol/L
(22-30)
BUN 22 H mg/dl
(9-20)
Creatinine 0.5 L mg/dL
(0.7-1.3)
Glucose 120 H mg/dl
(70-99)
01/29/25 10:53
Vital Signs
Initial and Last Documented VS:
Initial Vital Signs
Pulse Resp BP Pulse Ox
90 20 150/85 98
01/29/25 09:51 01/29/25 09:51 01/29/25 09:51 01/29/25 09:51
Last Documented Vital Signs
Pulse Resp BP Pulse Ox
71 16 119/68 100
01/29/25 16:05 01/29/25 16:05 01/29/25 16:05 01/29/25 16:05
<Ean Mcdermott MD - Last Filed: 01/29/25 15:45>
Orders/Labs/Results
Orders:
Orders
01/29/25 10:40
HYDROmorphone [Dilaudid] 1 mg IV NOW STA
01/29/25 10:43
Heparin Pf [Heparin Lock Flush] 500 unit .ROUTE .STK-MED ONE
01/29/25 10:47
CT Chest Angio W/wo Iv Contras Urgent
Comment:
Reason For Exam: hemoptysis
01/29/25 10:53
Comprehensive Metabolic Panel Urgent
01/29/25 11:54
HYDROmorphone [Dilaudid] 1 mg IV NOW STA
01/29/25 12:04
Heparin Pf [Heparin Lock Flush] 500 unit .ROUTE .STK-MED ONE
01/29/25 13:30
Oxycodone [Roxicodone] 15 mg PO NOW STA
01/29/25 14:08
Code Status As Directed
Resuscitation Status: Do not resuscitate
Reached after discussion with pt or family/Healthcare POA: Yes
PRN Pain Medication Management As Directed
May give lesser potent ordered pain med per pt: Yes
preference::
Protocol:: Medication orders for pain may be administered in a
manner that supports deferring to patient preference
when the pt is:
- Requesting an ordered lesser potent pain medication.
Least to most potent pain medications are defined
as: acetaminophen < NSAID < tramadol < opioids
(morphine, oxycodone, hydromorphone).
- Requesting a lesser dose of the same medication IF
ORDERED.
- Requesting a less intrusive route of administration
if both routes are prescribed by the provider (PO <
IV).
01/29/25 14:13
DNR Bracelet Application ONCE
01/29/25 14:[address] Non Medication Order As Directed
Physician Order: please TT me when home med rec complete
01/29/25 14:30
Tranexamic Acid 1000 mg/100 ml [Tranexamic Acid] 1,000 mg in 100 ml IV ONCE
01/29/25 14:47
ASA Classification Routine
Fentanyl Citrate/Pf [Sublimaze] 100 mcg IV NOW STA
Propofol [Diprivan] 100 mg IV NOW STA
01/29/25 14:48
CT Angio Neck W/Wo Iv Contrast [CT Neck Angio W/wo Iv Contrast] Urgent
Comment:
Reason For Exam: upper airway hemorrhage
Triglycerides Routine
Comment: baseline levels with propofol infusion
Fentanyl Citrate/Pf [Sublimaze] 100 mcg .ROUTE .STK-MED ONE
Propofol 1,000,000 Mcg/100 ml [Diprivan] 1,000,000 mcg in 100 ml .ROUTE .STK-MED
Propofol [Diprivan] 20 ml .ROUTE .STK-MED
01/29/25 15:00
Propofol 1,000,000 Mcg/100 ml [Diprivan] 1,000,000 mcg in 100 ml IV PER PROTOCOL
Indication:: Deep Sedation
Begin Infusion:: Now
Goal:: RASS -3 to -5 or BIS < 60 or ventilator synchrony
Maximum dose in mcg/kg/min:: 50
Initial Dose in mcg/kg/min:: 50
Titration Instructions:: Titrate by 5-10 mcg/kg/min every 5 minutes until RASS -3 to -5 or
Titration Instructions:: BIS < 60 or ventilator synchrony is met.
Titration Instructions:: Administer analgesia bolus dose(s) & titrate analgesia prior to
Titration Instructions:: adjusting sedation.
Taper Instructions:: If RASS is at or below goal for 4 consecutive hours decrease infusion by
Taper Instructions:: 5-10 mcg/kg/min every 2 hours. Do not wean infusion to off if patient is
Taper Instructions:: receiving a continuous NMBA or has received bolus NMBA with the past 3 hrs
Over-sedation Instructions:: If BIS < 40 and synchronous with ventilator decrease infusion by
Over-sedation Instructions:: 5-10 mcg/kg/min every 2 hour until BIS = 40-60.
Notify provider:: immediately if patient exhibits signs/symptoms of propofol-related
Notify provider:: infusion syndrome.
Additional Instructions:: Patient MUST be mechanically ventilated and MUST receive analgesia.
01/29/25 15:27
Hemoglobin Urgent
01/31/25 11:00
DC Protocol for Telemetry ONCE
02/01/25 06:00
Triglycerides Q3D
Comment: every 72 hours while patient is on propofol
02/04/25 06:00
Triglycerides Q3D
Comment: every 72 hours while patient is on propofol
02/07/25 06:00
Triglycerides Q3D
Comment: every 72 hours while patient is on propofol
Abnormal Lab Results
01/29/25
10:53
Chloride 95 L mmol/L
(98-107)
Carbon Dioxide 33 H mmol/L
(22-30)
BUN 22 H mg/dl
(9-20)
Creatinine 0.5 L mg/dL
(0.7-1.3)
Glucose 120 H mg/dl
(70-99)
01/29/25 10:53
Vital Signs
Initial and Last Documented VS:
Initial Vital Signs
Pulse Resp BP Pulse Ox
90 20 150/85 98
01/29/25 09:51 01/29/25 09:51 01/29/25 09:51 01/29/25 09:51
Last Documented Vital Signs
Pulse Resp BP Pulse Ox
71 16 119/68 100
01/29/25 16:05 01/29/25 16:05 01/29/25 16:05 01/29/25 16:05
<Dewey Monique PA-C - Last Filed: 01/29/25 16:24>
MDM/Problems Addressed
MDM/Problems Addressed:
CT angiogram of the chest shows no evidence for active hemorrhage at this time. Prior to this image I discussed with radiology as we cannot obtain angiograms of the neck and chest simultaneously. Given that his bleeding source was felt to be from
the oropharynx evident by lack of tracheal bleeding and known oropharyngeal carcinoma, I feel ENT direct visualization will be more advantageous than angiogram, ENT is made aware of the need for urgent consultation. Will admit to the hospitalist
service overnight for monitoring
<Dewey Monique PA-C - Last Filed: 01/29/25 16:24>
*Critical Care Note
Total Time (30-74mins, 75-104mins- exclusive of procedures): 90 minutes
comment:
Critical care time: 90 minutes
Critical care time was exclusive of: Separately billable procedures, treating other patients, and teaching time
Critical care was necessary to treat or prevent imminent or life-threatening deterioration of the following conditions: Upper airway hemorrhage
Critical care time spent personally by me on the following activities:
[x] Review of old charts
[x] Obtaining history from patient or surrogate
[x] Ordering and review of the laboratory studies
[x] Ordering and review of radiographic studies
[x] Ordering and performing treatments and interventions
[x] Patient patient's response to treatment
[x] Development of treatment plan with patient or surrogate
<Dewey Monique PA-C - Last Filed: 01/29/25 16:24>
Update Note
Update Note:
1430: Notified by RN that patient began with significant volume of upper airway hemorrhage. ENT arrived shortly thereafter. Reviewed plan with ENT, at this time we will plan to sedate the patient and exchange his trach for a cuffed tube and placed
him on mechanical ventilation, ED will sedate the patient and the ENT provider will attempt to pack the upper airway for local control. We will then send him over for CT angiogram of the neck to evaluate for active arterial hemorrhage. In all
likelihood the patient will require transfer to a tertiary care center. Patient was sedated with propofol and IV fentanyl premedication, trach was exchanged without difficulty however significant upper airway hemorrhage was noted to continue,
during packing process the patient received additional sedation and paralytics in order to facilitate procedure. He is currently maintained on a propofol and fentanyl drip for adequate sedation
1615: Positive detail discussion with patient's head and neck rating specialist at [facility] Dr. Mcclure, at this time there is no indication for transfer based on lack of intervention capabilities. Patient has an advanced age of cancer, and there
is no evidence of active hemorrhage on CT angiogram, regardless of this any procedure to the internal carotid would likely result in a cerebrovascular accident that would worsen the patient's quality of life. Plan at this time will be to admit to
the intensive care unit for further monitoring and sedation, remove packing tomorrow and reassess with potential need for hospice
ED Attending Note
<Dewey Monique PA-C - Last Filed: 01/29/25 16:24>
-
Portions of this chart may have been created with voice recognition software.� Occasional wrong word or��sound alike� substitutions may have occurred due to the inherent limitations of voice recognition software.
<Ean Mcdermott MD - Last Filed: 01/29/25 15:45>
ED Attending Note
Patient seen and examined by attending physician: Yes
ED Attending Note:
Patient with history of head and neck cancer, currently receiving treatment at [facility], with existing tracheostomy tube, presents to ED after coughing up blood at home this morning.
During observation in the ED, patient noted to have more episodes of hemoptysis.
H&H noted. Patient evaluated at bedside by ENT physician, Dr. Perrin. Decision made to switch uncuffed tracheostomy tube to cuffed tube for the purpose of connecting patient on the ventilator.
Tracheostomy tube replaced excessively by Dr. Perrin. Patient given fentanyl bolus, followed by propofol bolus with infusion afterwards. Patient also paralyzed with succinylcholine for bedside procedure.
Afterwards, patient's oral region will be packed by Dr. Perrin at bedside with Kerlix to tamponade acute bleeding. Patient will afterwards receive CT angiogram of neck, to potentially embolize any active bleeding site. Patient may need to be
transferred to [facility] afterwards.
Critical care statement: A total of 40 minutes of critical care time was provided for this patient. This includes management of unstable vital signs, evaluation of the patient at bedside, reviewing the patient's pertinent medical records, discussion
with consultants, review of old EKGs and review of pertinent medical records. This time with separate from time utilized to perform the aforementioned documented procedures
Discharge Plan
Departure
Patient Disposition: Admit
Date of Disposition: 01/29/25
Time of Disposition: 13:45
Admit to: ICU
Presentation/result/management discussed w/ accepting MD/DO: Hospitalist
Discharge Problem:
Hemoptysis
Interventions
Interventions:
*Risk Screen - Suicide Last Done: 01/29/25 09:51
*General Assessment Last Done: 01/29/25 09:51
*ED COVID-19 Vaccine History Last Done: 01/29/25 09:51
ED- Cardiac Assessment Last Done: 01/29/25 10:41
ED- Pulmonary Assessment Last Done: 01/29/25 15:58
--- NOTE | 2025-01-29 13:48 | HPS.HSE ---
Addendum entered and electronically signed by Kim Gil MD 01/29/25 16:52:
with drop in Hg to 8.1, expect delayed reaction with significant hemoptysis seen and will therefore transfuse 1 unit PRBC
Addendum entered and electronically signed by Kim Gil MD 01/29/25 16:47:
Scot is s/p Trach exchange to cuffed shiley; placed on vent with sedation. He is s/p packing by ENT. Per ER discussion with [place], no active extravasation seen on CT angio and even so, it would be from ICA which would have significant stroke
risk with embolization. If packing insufficient to control bleeding, then GOC and hospice should be discussed. Family at bedside understanding and agree with plan.
He is s/p TXA in the ER and per ENT recs, will continue q 24 hours.
Building Equipment Operator consulted.
Continue sedation on fentanyl/propofol. Recommendation is to keep patient sedated until seen by ENT for packing removal tomorrow.
Per family, patient did not tolerate fentanyl patches in past; comfortable on current sedation.
Total Critical Care Time 60 minutes. I was immediately available to the patient and staff. I personally examined, reviewed labs, diagnostic images/reports, interpretations, treatment plans, discussed patient care with other providers and family
or caregivers (if patient is unable to make decisions), entered orders as appropriate and documented the medical record.
Addendum entered and electronically signed by Kim Gil MD 01/29/25 14:48:
ENT at bedside with plans for packing followed by IR embolization. CTA to be obtained to then help decide disposition (here versus [facility])
Original Note:
Family Physician
-
Family Physician: NEMO Chauhan
Chief Complaint
-
coughing up blood
History of Present Illness
Mr. Nba Arguello is a 69 yo man with hx former smoker, prostate CA s/p radiation/TURP, oropharyngeal cancer receiving chemotherapy; s/p trach/PEG, sent to ER from outpatient infusion center for hemoptysis. Bleeding began overnight. Denies blood
coming out of trach.
Patient denies fevers/chills. No chest pain. He has constant secretions, newly blood overnight. reported clot seen in sink.
No nausea/vomiting/diarrhea. No LE swelling. No abdominal pain.
Medical History
Past Medical History
Past Medical History: Reports CAD and Cancer (Squamous cell cancer of the tongue,)
Past Surgical History: Reports Other
Social History
Tobacco: Former Smoker
Alcohol: None
Drug: None
Personal:
Living: With Family
Family History
Family History: Not pertinent
Allergies / Home Medications
Allergies reflects when Allergies were last updated in [employer].
Home Medications with original date entered in [employer]
Allergy/Medication List:
Allergies
Allergy/AdvReac Type Severity Reaction Status Date / Time
bee venom protein (honey bee) Allergy Severe Anaphylaxis Verified 01/29/25 09:54
Penicillins Allergy Rash Verified 01/29/25 09:54
Home Medications
cyanocobalamin (vitamin B-12) 1,000 mcg tablet 1,000 mcg feeding tube DAILY Supplement 05/26/24
glycopyrrolate 1 mg/5 mL (0.2 mg/mL) oral solution 1 mg feeding tube Q6HPRN PRN secrtions 07/25/24
scopolamine base 1 mg over 3 days transdermal patch 1 patch transdermal Q3D SECRETIONS 08/15/24
acetaminophen 650 mg/20.3 mL oral solution 650 mg (20.3 mL) feeding tube Q4HPRN PRN mild pain/ fever > 100.5 #500 mL 10/11/24
guaifenesin 100 mg/5 mL oral liquid 200 mg (10 mL) feeding tube Q6HPRN PRN cough/congestion #120 mL 10/11/24
lansoprazole 30 mg delayed release,disintegrating tablet (Prevacid SoluTab) 30 mg feeding tube DAILY #30 tabs 10/11/24
lidocaine 4 % topical patch 1 patch topical DAILY left back pain #30 ea 10/11/24
lorazepam 2 mg/mL oral concentrate 1 mg (0.5 mL) PO DAILY #30 mL 10/11/24
lorazepam 2 mg/mL oral concentrate 1 mg (0.5 mL) feeding tube TID PRN agitation #30 mL 10/11/24
polyethylene glycol 3350 17 gram oral powder packet 17 g feeding tube DAILY #30 ea 10/11/24
oxycodone 5 mg/5 mL oral solution 15 mg PO Q4H 01/27/25
prednisone 10 mg tablet 60 mg PO DAILY 01/27/25
Review of Systems
-
History Source: Patient
A 12 point ROS was completed and negative except as noted: Yes
Physical Exam
Vital Signs
Vital Signs
Pulse Resp BP Pulse Ox
85 22 151/91 99
01/29/25 13:24 01/29/25 13:24 01/29/25 13:24 01/29/25 13:24
Physical Exam
General: No Apparent Distress
HEENT: Other (trach present; pooling of blood along patient's dental line; unable to open up mouth given severe trismus from prior surgery )
Cardiac: S1/S2 and Regular Rhythm
GI: Soft and Non Tender
Skin: Warm and Dry; No Rash
Neuro: AO x 3
Psych: Calm
Laboratory Results
-
01/29/25 10:53
Laboratory Results
Total Bilirubin 1.1 mg/dl (0.2-1.3) 01/29/25 10:53
AST 18 U/L (17-59) 01/29/25 10:53
ALT 17 U/L (0-50) 01/29/25 10:53
Alkaline Phosphatase 75 U/L (38-126) 01/29/25 10:53
Data Reviewed
-
Diagnostic Radiology: Report Reviewed by me
Lab Data: Labs Reviewed by me
Impression/Plan
-
Mr. Nba Arguello is a 69 yo man with hx former smoker, prostate CA s/p radiation/TURP, oropharyngeal cancer receiving chemotherapy; s/p trach/PEG, sent to ER from outpatient infusion center for hemoptysis.
Triage VS: P 90, RR 20, BP 150/85, SpO2 98%
LABS: WBC 8.2, Hg 8.8, PLT 306, Na 136, K+ 3.7, Cl 95, CO2 33, Cr 0.5, Glucose 120, liver enzymes WNL
CTA Chest:
IMPRESSION:
No evidence of central pulmonary embolism.
Changes of emphysema again seen. No findings in the lung parenchyma bilaterally to suggest hemorrhage.
Mild pericardial thickening versus tiny pericardial effusion, decreased.
Small portion of the included abdomen significantly obscured by beam hardening artifact from the patient's bilateral upper extremities. At least one small left renal cyst.
Hemoptysis
-case discussed between ER and ENT inspector production plastic parts for urgent consultation
-admit patient to telemetry
-trend Hg, blood consent signed. Current Hg stable from 2 days ago
-ENT consult
-Keep NPO until ENT eval, will start D5LR
Chronic Pain Opiate Dependence
-continue home regimen
Hx Squamous Cell CA of Tongue
Hx PEG
-hold TF
*awaiting home med regimen
DVT PPx SCD
DNR - confirmed on admission
[2025-01-29] MEDS: TRANEXAMIC ACID 100 IV (14:40)
[2025-01-29] MEDS: DIPRIVAN 100 MG IV (14:56)
[2025-01-29] MEDS: SUBLIMAZE 100 MCG IV (14:57)
--- NOTE | 2025-01-29 14:59 | EDRN ---
Call recieved that pt started having an increase in bleeding with clots. ENT bedside. Plan is to sedate pt and place on ventilator.
1456: Pt given 100mcg Fentanyl for Sedation. Dr. Mcdermott, JI Monique and Dr. Perrin, and respiratory at the bedside.
1457: 60mg Propofol given by Dr. Mcdermott and propofol gtt started at 50mcg/kg/min - 147/92, HR 79
1500: Pt given an additional 30mg Propofol by Dr. Mcdermott - 6.0 cuffed trach placed by Dr. Perrin
1502: Dr. Perrin remains bedside and packing placed in his mouth to assist with the bleeding.
A/C rate 16, TV 400, Peep 5 100% FiO2 - current vent settings
[2025-01-29 15:36] LABS: Hemoglobin 8.1 g/dL (13.0-18.0)
[2025-01-29] MEDS: DIPRIVAN 100 IV (15:53)
[2025-01-29] MEDS: SUBLIMAZE 100 IV (15:53)
--- NOTE | 2025-01-29 16:18 | W.PN.ENT ---
Today's Communication
-
Will need to keep patient sedated as long as OP packing is in place.
Impression / Plan
-
The patient is a 69yoM with OP scca and hemorrhaging from the tumor. Trach was changed to a #6 cuffed shiley, patient placed on the vent with sedation and sent to IR for possible intervention or to [facility] for additional treatment.
Subjective Data
-
ENT called to evaluate oropharyngeal hemorrhaging on this patient with h/o OP SCCA. According to his , decision was not to operate and to pursue chemo.
Objective Data
-
Vital Signs
Pulse Resp BP Pulse Ox
71 16 119/68 100
01/29/25 16:05 01/29/25 16:05 01/29/25 16:05 01/29/25 16:05
Lab Results
01/29/25 15:27
01/29/25 10:53
Calcium 9.0 mg/dl (8.4-10.2) 01/29/25 10:53
Total Bilirubin 1.1 mg/dl (0.2-1.3) 01/29/25 10:53
AST 18 U/L (17-59) 01/29/25 10:53
ALT 17 U/L (0-50) 01/29/25 10:53
Alkaline Phosphatase 75 U/L (38-126) 01/29/25 10:53
Physical Exam
-
GEN: Distressed, uncomfortable male with large blood/clots hemoptysis
HEENT: Restricted tongue motion, large clots, large mass right side. #[address], cuffless.
Due to hemorrhaging, decision is made to protect his airway and get hemostasis by packing the OP. Trach is changed to a #6 shiley cuffed trach, patient was sedated and OP packed with one Kerlix with good control of bleeding.
Data Reviewed
-
Radiology Results: Image Reviewed
[2025-01-29 17:01] LABS: APTT 25.4 Sec (23.4-35.0); INR 1.16; PT 15.3 Sec (11.4-14.6)
[2025-01-29 17:03] LABS: Triglycerides 79 mg/dl (10-149)
--- NOTE | 2025-01-29 17:22 | CON.INTV ---
Consultation
Consultation Request
Date/Time Consultation Requested: 01/29/2025
Date/Time Consultation Performed: 01/29/2025
Requesting Provider: Kim Gil
Performing Provider: Prabha Asif
Reason for Consultation: Hemoptysis
Medical History
-
Chief Complaint: Hemoptysis
History of Present Illness:
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 Patient at baseline has a known cough to
tracheostomy tube. Reportedly bleeding developed the night before and patient was bringing up blood per mouth, no bleeding from the tracheostomy site however. Patient also has a diagnosis of prostate cancer s/p radiation and TURP. Patient has
received chemotherapy for the oropharyngeal cancer and follows with the [facility].
In the emergency room patient had a CT PE which was negative for any pulmonary embolism. Subsequently patient had the tracheostomy tube changed to a cuffed Shiley 6.0 and patient was connected to mechanical ventilation. ENT service evaluated the
patient and placed gauze packing. Subsequently a CT angiogram of neck was performed which was negative for an ongoing extravasation. Emergency room physician contacted [facility] and no further therapies were suggested. Patient is
being admitted to the ICU for further management and informix developer service was consulted for further input.
Past Medical History
Past Medical History: None (CAD. COPD. Hypertension. Prostate cancer treated with radiation. Tongue cancer-squamous cell status post resection, chemo, radiation. Chronic aspiration. Tracheostomy tube. Gastrostomy tube.)
Social History
Tobacco: Former Smoker
Alcohol: Former
Drug: None
Personal:
Living: With Family
Occupational Exposures: No known asbestos exposure
Environmental Exposures: No known tuberculosis exposure
Family History
Family History: Reviewed & Not Pertinent
Allergies / Home Medications
Allergies
Allergy/AdvReac Type Severity Reaction Status Date / Time
bee venom protein (honey bee) Allergy Severe Anaphylaxis Verified 01/29/25 09:54
Penicillins Allergy Rash Verified 01/29/25 09:54
Home Medications
�Medication �Instructions �Recorded �Confirmed �Last Taken �Type
cyanocobalamin (vitamin B-12) 1,000 mcg feeding tube DAILY 05/26/24 01/29/25 01/28/25 History
1,000 mcg tablet Supplement
glycopyrrolate 1 mg/5 mL (0.2 1 mg feeding tube Q6HPRN PRN 07/25/24 01/29/25 01/28/25 History
mg/mL) oral solution secrtions
scopolamine base 1 mg over 3 days 1 patch transdermal Q3D SECRETIONS 08/15/24 01/29/25 01/27/25 History
transdermal patch
acetaminophen 650 mg/20.3 mL oral 650 mg (20.3 mL) feeding tube 10/11/24 01/29/25 01/28/25 Rx
solution Q4HPRN PRN mild pain/ fever >
100.5 #500 mL
guaifenesin 100 mg/5 mL oral liquid 200 mg (10 mL) feeding tube Q6HPRN 10/11/24 01/29/25 01/28/25 Rx
PRN cough/congestion #120 mL
lansoprazole 30 mg delayed 30 mg feeding tube DAILY #30 tabs 10/11/24 01/29/25 Unknown Rx
release,disintegrating tablet
(Prevacid SoluTab)
lidocaine 4 % topical patch 1 patch topical DAILY left back 10/11/24 01/29/25 01/28/25 Rx
pain #30 ea
lorazepam 2 mg/mL oral concentrate 1 mg (0.5 mL) feeding tube TID PRN 10/11/24 01/29/25 01/28/25 Rx
agitation #30 mL
prednisone 10 mg tablet 60 mg PO DIRECTED 01/27/25 01/29/25 01/28/25 History
lorazepam 2 mg/mL oral concentrate 1 mg feeding tube DAILY 01/29/25 01/29/25 Unknown History
oxycodone 10 mg tablet 15 mg feeding tube Q4H 01/29/25 01/29/25 Unknown History
polyethylene glycol 3350 17 gram 17 g feeding tube DAILYPRN PRN 01/29/25 01/29/25 Unknown History
oral powder packet constipation
trazodone 50 mg tablet 50 mg feeding tube HSPRN PRN sleep 01/29/25 01/29/25 Unknown History
Review of Systems
-
Unable to Obtain full review of systems at this time due to: Patient Intubation
Vitals / Labs / Diagnostic Testing
Vital Signs
Pulse Resp BP Pulse Ox
70 16 119/67 100
01/29/25 16:20 01/29/25 16:20 01/29/25 16:20 01/29/25 16:20
Lab Data
01/29/25 15:27
01/29/25 10:53
Laboratory Results
01/29/25
16:44
PT 15.3 H
INR 1.16
APTT 25.4
Diagnostic Testing:
Physical Exam
-
HEENT: Normocephalic and Other (Mild conjunctival pallor. Oral packing in place, no active hemoptysis noted.)
Cardiovascular: S1/S2
Respiratory: Clear and Non-Labored Respirations
GI: Soft and Non Distended
Neurology: Other (Sedated with propofol and fentanyl)
Skin: Warm
General: Comfortable
Assessment
-
#1. Hemoptysis. Suspect this is originating from upper airway likely the tumor bed. S/p packing by ENT service.
- Plan to keep the patient on mechanical ventilation via tracheostomy. Cuffed Shiley tube 6.o in place (at home patient used Portex 8.0, changes inner cannula 1-2 times per day).
- Maintain deep sedation with propofol and fentanyl overnight, monitor closely for any tracheostomy tube dislodgment. PRN Ativan in addition.
- Continue Mechanical ventilation, currently on 400/16/30%/5, check ABG and make changes accordingly.
- CXR in AM.
- Continue tranexamic acid as ordered
- Serial H&H, transfuse as needed
- Avoid antiplatelets and anticoagulants
#2. Emphysema with 6 mm lung nodule.
- Reported significant secretions at baseline, ?Chronic bronchitis.
- Extensive smoking history and emphysema on imaging. Suspect underlying COPD
- Start Duoneb qid, continue Scopolamine patch
- Depending on patient's clinical course, will need further workup including PFTs and serial CT surveillance as outpatient
#3. History of squamous cell carcinoma, oral cavity, status post chemotherapy and radiation.
- Patient is s/p tracheostomy as well as PEG tube
- Follows up with Dr. Galvan at [facility] as well as manager billing [place]
- Patient was scheduled to start a second line chemotherapy today, was sent to emergency room for hemoptysis
#4. H/O Smoking, more then 40 pack year smoking history
-Patient quit in 05/2024
Continue lansoprazole for GI prophylaxis
SCDs for DVT prophylaxis
Updated patient's and daughter.
Critical Care time 68 mins -- The patient is admitted for acute critical illness for the treatment of vital organ failure and/or prevention of further life-threatening conditions. Total care includes time spent in review of history, physical exam,
medications, hemodynamic/ventilator parameters, laboratory data, imaging and discussion with house staff, pharmacy, respiratory therapy, software release engineer, and nursing.
Data:
CTA Neck: 01/2025: 1. New 1.8 cm irregular shaped air-filled cavity in the right side of the oropharynx which could be secondary to interval surgical resection of tongue carcinoma or tumor necrosis.
2. Irregular shaped regions of enhancing soft tissue in the left oropharynx and posterior right oropharynx and bonderizer operator space. Diagnostic possibilities are (1) tumor infiltration or (2) post therapy edema.
3. 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
4. Tracheostomy tube in place.
5. Moderate bilateral upper lobe emphysema.
6. 6 mm solid pulmonary nodule in the right upper lobe which could be a pulmonary metastasis or infectious/inflammatory pulmonary nodule.
7. Severe multilevel cervical discogenic degenerative disease with multilevel disc-osteophyte complexes causing mild spinal cord compression and central canal stenosis.
8. Less than 50% diameter stenosis in both internal carotid arteries.
CT-PE 01/2025: No evidence of central pulmonary embolism.
Changes of emphysema again seen. No findings in the lung parenchyma bilaterally to suggest hemorrhage.
Mild pericardial thickening versus tiny pericardial effusion, decreased.
Small portion of the included abdomen significantly obscured by beam hardening artifact from the patient's bilateral upper extremities. At least one small left renal cyst.
ECHO 04/2024: Normal left ventricular size, wall thickness and systolic function. No regional
wall motion abnormalities are seen. LV ejection fraction is 60-65% by Coto's
method of discs. Normal diastolic function.
Normal right ventricular size and function.
Trace tricuspid regurgitation. Estimated pulmonary artery pressure of 20-25
mmHg, assuming a right atrial pressure of 3 mmHg.
No significant valvular disease.
No prior study available for comparison.
[2025-01-29 18:27] LABS: B.E. 8.5 mmol/L; HCO3 33.4 mmol/L (21-28); O2 Saturation % 80.4 % (94-98); PCO2 47 mmHg (35-48); pH 7.46 (7.35-7.45)
[2025-01-29 18:29] LABS: PO2 48 mmHg (83-108)
[2025-01-29 18:36] LABS: % Basophils 0.2 % (0-2); % Eosinophils 1.1 % (0-6); % Immature Granulocytes 0.6 % (0-0.5); % Lymphocytes 5.3 % (20.5-51.1); % Monocytes 6.9 % (1.7-9.3); % Neutrophils 85.9 % (42.2-75.2); Absolute Eosinophils 0.1 10^3/uL (0-0.7); Absolute Immature Granulocytes 0.1 10^3/uL (0-0.05); Absolute Lymphocytes 0.5 10^3/uL (1.2-3.4); Absolute Monocytes 0.6 10^3/uL (0.1-0.6); Absolute Neutrophils 7.5 10^3/uL (1.4-6.5); Hematocrit 24.7 % (39.0-52.0); Hemoglobin 8.3 g/dL (13.0-18.0); Mean Corp Hgb Conc. 33.6 g/dL (33.0-37.0); Mean Corpuscular Hgb 31.7 pg (27.0-31.0); Mean Corpuscular Volume 94.3 fL (80.0-94.0); Nucleated Red Blood Cells % 0 % (-); Platelet Count 304 10^3/uL (130-400); Red Blood Cell Count 2.62 10^6/uL (4.70-6.10); Red Cell Dist. Width 14.2 % (11.5-14.5); White Blood Cell Count 8.7 10^3/uL (4.8-10.8)
[2025-01-29 18:38] LABS: Magnesium 1.8 mg/dl (1.6-2.3); Phosphorus 3.1 mg/dl (2.5-4.5)
[2025-01-29 18:41] LABS: Glucose - Point of Care 85 mg/dl (70-99)
--- NOTE | 2025-01-29 18:45 | PTCARENOTE ---
Rec'd pt at 1745 via stretcher from the ED. Rec'd pt sedated on Diprivan at 50 mcg and Fentanyl at 100 mcg. With stimulation pt will reach up toward his head. Strong picker and packer with his hands whenever something is place in them. RASS currently a -1 and
CPOT is a 2. Goal is deep sedation. NINO. JOSE at 2mm-sluggish. Skin is pale/sallow wm and dry. Scabbed skin tear noted L lateral lower arm. Silicone border foam dressing applied. Neck and lower jaw sl swollen. Per ENT report oropharynx packed with
guaze and part of guaze sticking out of his mouth. To be kept there per ENT. No bleeding noted. Respirs are intact on the vent. Pt with #6 Shiley cuffed trach- Site wnl. Vent settings AC 16/tv 400/peep 5 Fio2 30%. ABG sent as ordered and results
given to Lennox Nesbitt SCRATCH POLISHER- Will recheck ABG as results could be venous as pts sats per pulse ox are 99-100%. Adds a few breaths with stimulation but mostly controlled at 16. Adding no additional volume. BS are sl coarse and decreased. Did not
suction pt. Monitor SR. + pulses. No edema. VS as documented. ABd with L abd PEG tube that is clamped. Site Reddend/pink- redressed. 6 cm just above abd. No urine. #25 condom cath placed as per pt normally wears a brief. #20 int intact R
forearm- #1 unit PRBC hung at 1833 per MD order. Fent and Propophol infusing via R chest SQ port. Site wnl. CHG bath given. Pts and daughter updated on plan of care. Bilat soft wrist restraints placed on pt for pt safety. Of note documentation
entered as Kavitha Vargas RN was completed by Dary Wakefield RN.
[2025-01-29 19:26] LABS: B.E. 9.4 mmol/L; HCO3 31.9 mmol/L (21-28); O2 Saturation % 99.7 % (94-98); PCO2 34 mmHg (35-48); PO2 140 mmHg (83-108); pH 7.58 (7.35-7.45)
[2025-01-29] MEDS: DUONEB 3 ML INH (19:33)
--- NOTE | 2025-01-29 20:00 | PTCARENOTE ---
mail sorter, pt sedated on vent, SR HR 60-70s, RSQ port/RFA IV WNL- Prop and Fent infusing as documented on work list, 1uPRBC continues to infuse. Trach/Vent, tolerating, Sat 100% on 30% Fi02. Peg tube WNL, clamped. yellow urine draining through
condom cath. family updated at bedside. will continue to monitor.
[2025-01-29] MEDS: TRANSDERM-SCOP 1 PATCH TRANSDERM (20:22)
[2025-01-29 23:52] LABS: Hemoglobin 9.1 g/dL (13.0-18.0)
[2025-01-30] VITALS (25 sets, daily range): BP systolic 95–150; BP diastolic 57–71; BMI 18.5
--- NOTE | 2025-01-30 00:15 | PTCARENOTE ---
pt voided mod amt yellow urine, bladder scanned for 790cc- straight cath for 800cc. kenya care. turned/repositioned. no further changes in assessment.
[2025-01-30] MEDS: SUBLIMAZE 100 IV ×3 (00:21→23:04)
[2025-01-30] MEDS: NSS 1000 IV ×2 (00:55→17:24)
--- NOTE | 2025-01-30 04:15 | PTCARENOTE ---
no changes in pt assessment.
[2025-01-30] MEDS: DIPRIVAN 100 IV ×4 (04:38→20:33)
[2025-01-30 04:41] LABS: Hematocrit 26.6 % (39.0-52.0); Hemoglobin 9.1 g/dL (13.0-18.0); Mean Corp Hgb Conc. 34.2 g/dL (33.0-37.0); Mean Corpuscular Hgb 31.5 pg (27.0-31.0); Platelet Count 254 10^3/uL (130-400); Red Blood Cell Count 2.89 10^6/uL (4.70-6.10); Red Cell Dist. Width 14.2 % (11.5-14.5); White Blood Cell Count 7.1 10^3/uL (4.8-10.8)
[2025-01-30 05:09] LABS: ALT (SGPT) 13 U/L (0-50); AST (SGOT) 15 U/L (17-59); Albumin 2.9 g/dl (3.5-5.0); Alkaline Phosphatase 66 U/L (38-126); Blood Urea Nitrogen 17 mg/dl (9-20); Calcium 8.1 mg/dl (8.4-10.2); Carbon Dioxide 29 mmol/L (22-30); Chloride 100 mmol/L (98-107); Estimated Creatinine Clearance 95 ml/min; Glucose 95 mg/dl (70-99); Magnesium 1.8 mg/dl (1.6-2.3); Potassium 3.4 mmol/L (3.5-5.1); Sodium 136 mmol/L (135-145); Total Bilirubin 1.1 mg/dl (0.2-1.3); Total Protein 5.5 g/dl (6.3-8.2); eGFR > 60.00
[2025-01-30] MEDS: KCL 270 MEQ IV (06:09)
[2025-01-30] MEDS: DUONEB 3 ML INH ×4 (07:36→20:58)
[2025-01-30] MEDS: LIDOCAINE 4% PATCH 1 PATCH TOPICAL (08:04)
[2025-01-30] MEDS: PREVACID 30 MG TUBE (08:04)
[2025-01-30] MEDS: MIRALAX 17 GRAMS TUBE (08:05)
--- NOTE | 2025-01-30 08:22 | W.PN.HOSP.TC ---
Addendum entered and electronically signed by Ean Gautam MD 01/30/25 20:00:
Attending Addendum-
I saw and evaluated the patient. I reviewed the resident�s note and agree with findings and plan as documented in the resident�s note. Sub: intubated and sedated. seen with and daughter present. transferred to ICU and started on mech vent due
to hemoptysis. ROS unable to be reviewed due to sedation. Exam: Vitals reviewed in chart GEN-NAD sedated HEENT ventilated, trach collar in place with no bleeding noted @ site Heart RRR lungs scattered rhonchi abd soft PEG in place LE no edema
Plan:
#Hemoptysis
- likely from tongue base
- S/p packing by ENT 01/29.
- Packing removed 01/30, no further bleeding noted
- Continue mechanical ventilation for now for airway protection
- for possible SBT later today transition to trach collar with - resume previous cuffless trach tube when available
- Continue propofol and fentanyl for now
- No bleeding noted from ET tube
- Continue TXA
- transfused 1 unit PRBC due to dropping hb
- Serial H&H stable.
- Avoid antiplatelets
# History of squamous cell carcinoma, oral cavity, status post chemotherapy and radiation.
- s/p tracheostomy as well as PEG tube
- Follows up with Dr. Galvan and [facility]
- Patient was scheduled to start a second line chemotherapy
# Hypokalemia
- replete
- CTM
# Cachectic/Dysphagia
- cont NPO
- restart PEG TF
# 6MM pulm nodule- likely underlying COPD, with need eventual workup and follow up as indicated - d/w family
# H/O Prostate ca s/p TURP
# Anxiety- cont ativan prn
# GERD- cont lansoprazole
# Chronic Pain with narcotic dependence- cont oxycodone
CODE- DNR->Limited (no CPR)
ACP
Patient unable to consent to discuss, was with POA/ and daughter, time spent explanation of advance directives, changes in health status, patient�s health care wishes if the patient becomes unable to make health decisions, goals of care, code
status, and prognosis 'he wouldn't want for his ribs to be broken with that CPR. Everything else is fine' - 16 minutes
CC Note
Due to a high probability of clinically significant, life-threatening deterioration, the patient required a high level of preparedness to intervene emergently. I personally spent this critical care time directly and personally managing the patient.
This critical care time included obtaining a history; examining the patient; ordering and review of studies and STAT labs; arranging urgent treatment with development of a management plan; evaluation of patient's response to treatment; reassessment;
and, discussions with other providers.
This critical care time was performed to assess and manage the high probability of imminent, life-threatening deterioration that could result in multi-organ failure. It was exclusive of separately billable procedures and treating other patients and
teaching time. Total time documented is also exclusive of any additional time listed that was spent in advance care planning discussion
Total critical care time: Approximately 34 minutes
Original Note:
Today's Communication/Plan
-
ENT removed packing.
Resume tube feeds.
Continue tranexamic acid as prescribed
Trend H&H, blood transfusion if needed.
Mechanical ventilation for 24 hours.
Assessment / Plan
Assessment / Plan
Ugr[age]ys[age]om-87-jozm-old male with PMHx significant for SCC at base of tongue s/p resection, on chemoradiation, s/p tracheostomy tube placement and gastrostomy tube placement presents to the hospital for evaluation of hemoptysis, hemoptysis suspected
directly a bleed from the tumor site.
Plan-
Hemoptysis-
CT PE protocol negative for pulmonary embolism. ENT removed packing today and reexamined tumor site for bleed. No bleeding source identified.
Initially intubated and connected to mechanical ventilation to protect airway from aspiration. Continue deep sedation and mechanical ventilation for 24 hours.
Chest x-ray shows no evidence of active cardiopulmonary disease, left apical hemithorax is limited in evaluation because of patient's position.
ENT to reevaluate bleeding site tomorrow.
Patient is receiving tranexamic acid.
Avoid any form of anticoagulation.
Appreciate ENT, and tubing mill operator inputs.
Acute blood loss anemia-
Hemoglobin 8.5 upon arrival, s/p 1 unit of blood transfusion.
Serial H&H's, and monitor for any acute blood loss
Transfusion if Hb less than 8.5
Hb today-10.1.
Pulmonary nodule-6 mm, emphysema-as noted on CAT scan
Unclear if patient has a diagnosis of COPD.
[id number]-wdel of smoking history recently quit smoking about 2 months ago after diagnosis of basal cell tongue cancer.
Dater Assembler recommends outpatient follow-up for COPD evaluation.
History of squamous cell carcinoma, oral cavity-s/p chemoradiation.
Follows up with Dr. Galvan at [facility], ended you plan with ENT.
Patient's family also wants a close ENT follow-up within the [facility] along with you pending ENT.
Will provide local ENT referral.
Tracheostomy tube -
Previously on trocar 8, changes to cannula twice a day.
Currently on Shiley 6.0, ENT plans to change back to trocar 8 at the time of discharge.
GI prophylaxis-
Lansoprazole
PEG tube in place-
Resume Jevity 1.5 tube feeds.
Chronic pain syndrome-opioid dependence-
Continue home medication regimen
On 135 MME per day.
Cachexia-
Secondary to malignancy.
BMI at 18.5 to
DVT prophylaxis-sequential compression device
CODE STATUS-
Limited DNR.
Anticipated Discharge: > 48 hours
Subjective/Interval History
-
Date of Service: January 30, 2025
Patient appears sedated, history could not be obtained.
Objective Data
-
Labs:
Laboratory Results
01/29/25 01/30/25
23:39 04:27
WBC 7.1
Hgb 9.1 L 9.1 L
Hct 26.6 L
Plt Count 254
Sodium 136
Potassium 3.4 L
Chloride 100
Carbon Dioxide 29
BUN 17
Creatinine 0.4 L
Glucose 95
Calcium 8.1 L
Total Bilirubin 1.1
AST 15 L
ALT 13
Alkaline Phosphatase 66
Vital Signs:
Vital Signs
Temp Pulse Resp BP Pulse Ox
97.9 F 108 16 126/68 99
01/30/25 08:02 01/30/25 07:36 01/30/25 07:36 01/30/25 06:00 01/30/25 07:36
I&O
01/29/25 01/30/25 01/31/25
06:59 06:59 06:59
Intake Total 1193.1 / 1193.1
Output Total 1075 / 1075
Balance 118.1 / 118.1
Review of Systems
-
Unable to obtain full review of systems at this time due to: Acuity and Patient Intubation
Physical Exam
-
General: Comfortable
HEENT: Moist Mucous Membranes and Other (Tracheostomy tube, covered Shiley 6.0); Negative Thrush
Respiratory: Clear to Auscultation and Other (On mechanical ventilation, settings-PEEP of 5, VT O2 of 500, RR at 16, FiO2 at 30%); Negative Wheezes, Rales, Rhonchi or Crackles
Cardiac: Regular Rhythm and S1/S2; Negative Murmur, Rub or Gallop
GI: Soft, Nontender, Nondistended, Normal Bowel Sounds and Peg Tube (No erythema, edema, drainage from the PEG tube site.)
Musculoskeletal: No Clubbing, No Cyanosis, No Edema and Other (Skin color changes.)
Skin: Warm
Neuro: AO x 3
Psych: Calm
Data Reviewed
-
Diagnostic Radiology: Report Reviewed by me and Discussed with Physician
CT Scan: Image personally visualized and interpreted, Report Reviewed by me and Discussed with Physician
Medical Tests (Nuc Med, Echo etc): Image personally visualized and interpreted, Report Reviewed by me and Discussed with Physician
Labs: Labs Reviewed by me, Discussed with Physician and Discussed with Nurse
[2025-01-30] MEDS: SUBLIMAZE 50 MCG IV (08:26)
--- NOTE | 2025-01-30 08:37 | VNURNOTE ---
Chart reviewed. [facility]. Will continue to follow hospital course and DC dispo plans.
--- NOTE | 2025-01-30 09:00 | PTCARENOTE ---
pt sedated on vent support , opens eyes with tactile stimuli , NSR on monitor , BP 120/68 , suctioning small amt of blood tinged secretions from trac , no blood noted from oral secretions , packing is stilll intact
--- NOTE | 2025-01-30 09:12 | CM ---
Reviewed chart and spoke with Nba's related that they live together in a single two story home with a basement and one step to enter. She described him as in need of supervision for ADLs, personal care, dressing, bathing and toileting. He uses
a walker to assist with ambulation. He is able to do some light chores, however, his does the cooking, cleaning and laundry. She still works during the day, however, she stated that patient is doing alright during the day and she is home with
him in the evenings when he does his bathing and personal care. Patient has a PEG ; currently intubated in ICU.
Patient is known to [facility]. His wants resumption at discharge if appropriate.
Hx of SNF at [facility].
Pharm: [facility] in [place]
PCP: Kwame Scott.
Plan: Case management will continue to follow/assist with discharge planning needs. Tentatively home with resumption of [facility].
--- NOTE | 2025-01-30 10:45 | W.PN.ENT ---
Today's Communication
-
pt seen at bedside
Impression / Plan
-
The patient is a 69yoM with OP scca and hemorrhaging from the tumor. Trach was changed to a #6 cuffed shiley, patient placed on the vent with sedation and sent to IR for possible intervention or to [facility] for additional treatment.
Pack removed today (01/30). No active bleeding noted
Subjective Data
-
ENT called to evaluate oropharyngeal hemorrhaging on this patient with h/o OP SCCA. According to his , decision was not to operate and to pursue chemo.
addendum 01/30-pt did well overnight, no bleeding
Objective Data
-
Vital Signs
Temp Pulse Resp BP Pulse Ox
97.9 F 68 16 126/63 98
01/30/25 08:02 01/30/25 09:00 01/30/25 09:00 01/30/25 09:00 01/30/25 08:45
Intake & Output
01/29/25 01/30/25 01/31/25
06:59 06:59 06:59
Intake:
IV fluids (Total) 673.1 / 775.2 306.3 / 306.3
Fentanyl 110 / 120 30 / 30
Nss 1,000 ml @ 75 mls/hr IV . 375 / 450 225 / 225
[id number] [facility] Rx#:[id number]
Propophol 188.1 / 205.2 51.3 / 51.3
IV piggybacks 270 / 270
Blood Product Amount Infused ( 250 / 250
mL)
Packed Rbc Leukoreduced Unit 250 / 250
[id number]
Output:
Straight cath output 1075 / 1075
Other:
How many times incontinent 1
SMALL amount urine
Lab Results
01/30/25 04:27
01/30/25 04:27
PT 15.3 Sec (11.4-14.6) H 01/29/25 16:44
INR 1.16 01/29/25 16:44
APTT 25.4 Sec (23.4-35.0) 01/29/25 16:44
Calcium 8.1 mg/dl (8.4-10.2) L 01/30/25 04:27
Phosphorus 3.1 mg/dl (2.5-4.5) 01/29/25 16:44
Magnesium 1.8 mg/dl (1.6-2.3) 01/30/25 04:27
Total Bilirubin 1.1 mg/dl (0.2-1.3) 01/30/25 04:27
AST 15 U/L (17-59) L 01/30/25 04:27
ALT 13 U/L (0-50) 01/30/25 04:27
Alkaline Phosphatase 66 U/L (38-126) 01/30/25 04:27
Triglycerides 79 mg/dl (10-149) 01/29/25 16:44
Physical Exam
-
packing in mouth and oropharynx
no active bleeding noted
TXA for minor bleeding
Chest: Clear
Respiratory: Clear
Data Reviewed
-
Radiology Results: Report Reviewed
--- NOTE | 2025-01-30 12:20 | PTCARENOTE ---
Dr Hollingsworth here to remove oral packing , no bleeding noted from oral pharyngeal area, plan per intensive care team to keep patient on vent overnight the SBT tomorrow , tube feedings are ordered , pt and daughter at bedside updated on plan of
care and condition
--- NOTE | 2025-01-30 13:25 | CHAP ---
Emotional and spiritual support provided, prayer blanket given. WIll follow.
--- NOTE | 2025-01-30 14:36 | W.PN.INTV ---
Today's Communication / Plan
Recommendations
- Start tube feeding
- If no further bleeding noted today, will start weaning from mechanical ventilation on 01/31
Assessment
-
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 Patient at baseline has a known cough to
tracheostomy tube. Reportedly bleeding developed the night before and patient was bringing up blood per mouth, no bleeding from the tracheostomy site however. Patient also has a diagnosis of prostate cancer s/p radiation and TURP. Patient has
received chemotherapy for the oropharyngeal cancer and follows with the [facility].
In the emergency room patient had a CT PE which was negative for any pulmonary embolism. Subsequently patient had the tracheostomy tube changed to a cuffed Shiley 6.0 and patient was connected to mechanical ventilation. ENT service evaluated the
patient and placed gauze packing. Subsequently a CT angiogram of neck was performed which was negative for an ongoing extravasation. Emergency room physician contacted [facility] and no further therapies were suggested. Patient is
being admitted to the ICU for further management and rd lab technician service was consulted for further input.
#1. Hemoptysis. Suspect this is originating from upper airway likely the tumor bed. S/p packing by ENT service 01/29.
- Packing removed , no further bleeding noted. ENT service on case.
- Continue mechanical ventilation for now.. Cuffed Shiley tube 6.o in place (at home patient used Cuffless Portex 8.0, changes inner cannula 1-2 times per day).
- If no further bleeding today, will start weaning the patient from mechanical ventilation with the goal of eventually transitioning to trach collar
- Continue propofol and fentanyl for sedation. As needed Ativan in addition.
- Continue Mechanical ventilation
- CXR reviewed, no changes. No bleeding noted from ET tube
- Continue tranexamic acid as ordered
- Serial H&H stable.
- Avoid antiplatelets and anticoagulants
#2. Emphysema with 6 mm lung nodule.
- Reported significant secretions at baseline, ?Chronic bronchitis.
- Extensive smoking history and emphysema on imaging. Suspect underlying COPD
- Continue Duoneb qid, continue Scopolamine patch
- Depending on patient's clinical course, will need further workup including PFTs and serial CT surveillance as outpatient
#3. History of squamous cell carcinoma, oral cavity, status post chemotherapy and radiation.
- Patient is s/p tracheostomy as well as PEG tube
- Follows up with Dr. Galvan at [facility] as well as [facility]
- Patient was scheduled to start a second line chemotherapy t001/29, was sent to emergency room for hemoptysis
#4. H/O Smoking, more then 40 pack year smoking history
-Patient quit in 05/2024
Continue lansoprazole for GI prophylaxis
SCDs for DVT prophylaxis
Updated patient's at bedside
Critical Care time 48 mins -- The patient is admitted for acute critical illness for the treatment of vital organ failure and/or prevention of further life-threatening conditions. Total care includes time spent in review of history, physical exam,
medications, hemodynamic/ventilator parameters, laboratory data, imaging and discussion with house staff, pharmacy, respiratory therapy, bonding machine operator, and nursing.
Data:
CTA Neck: 01/2025: 1. New 1.8 cm irregular shaped air-filled cavity in the right side of the oropharynx which could be secondary to interval surgical resection of tongue carcinoma or tumor necrosis.
2. Irregular shaped regions of enhancing soft tissue in the left oropharynx and posterior right oropharynx and windscreen fitter space. Diagnostic possibilities are (1) tumor infiltration or (2) post therapy edema.
3. 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
4. Tracheostomy tube in place.
5. Moderate bilateral upper lobe emphysema.
6. 6 mm solid pulmonary nodule in the right upper lobe which could be a pulmonary metastasis or infectious/inflammatory pulmonary nodule.
7. Severe multilevel cervical discogenic degenerative disease with multilevel disc-osteophyte complexes causing mild spinal cord compression and central canal stenosis.
8. Less than 50% diameter stenosis in both internal carotid arteries.
CT-PE 01/2025: No evidence of central pulmonary embolism.
Changes of emphysema again seen. No findings in the lung parenchyma bilaterally to suggest hemorrhage.
Mild pericardial thickening versus tiny pericardial effusion, decreased.
Small portion of the included abdomen significantly obscured by beam hardening artifact from the patient's bilateral upper extremities. At least one small left renal cyst.
ECHO 04/2024: Normal left ventricular size, wall thickness and systolic function. No regional
wall motion abnormalities are seen. LV ejection fraction is 60-65% by Coto's
method of discs. Normal diastolic function.
Normal right ventricular size and function.
Trace tricuspid regurgitation. Estimated pulmonary artery pressure of 20-25
mmHg, assuming a right atrial pressure of 3 mmHg.
No significant valvular disease.
No prior study available for comparison.
Subjective Dataa
Subjective Data
Date of Service:
Date of Service: January 30, 2025
Subjective:
Patient currently intubated, mechanically ventilated and sedated.
Review of Systems
General: Unobtainable - Sedation
Objective Data
Data Reviewed
Vital Signs / I&O / Oxygen:
Vital Signs
Temp Pulse Resp BP Pulse Ox
98.4 F 71 17 119/65 97
01/30/25 11:30 01/30/25 12:15 01/30/25 12:15 01/30/25 12:00 01/30/25 12:15
Intake and Output
01/29/25 01/30/25 01/31/25
06:59 06:59 06:59
Intake Total 1193.1 / 1295.2 612.6 / 612.6
Output Total 1075 / 1075
Balance 118.1 / 220.2 612.6 / 612.6
SaO2 [A/C] 97
SaO2 97
Physical Exam
General: Comfortable
HEENT: Normocephalic
Cardiovascular: S1-S2
Respiratory: Clear and Non-Labored Respirations
GI: Soft and Non Distended
Skin: Warm
Labs/Micro/Reports
Lab Data
01/30/25 04:27
01/30/25 04:27
Laboratory Results
01/29/25 01/29/25 01/29/25
16:44 18:16 19:21
PT 15.3 H
INR 1.16
APTT 25.4
pH 7.46 H 7.58 H
pCO2 47 34 L
pO2 48 L* 140 H
HCO3 33.4 H 31.9 H
O2 Delivery Level
--- NOTE | 2025-01-30 15:33 | PN.CDI ---
CDI
- -
CDI:
Physician Documentation Request
Admit Date: 01/29/25 15:02
Dear Doctor Flex,
Patient admitted for tumor site bleed.
ER Physician Documentation: 'squamous cell carcinoma of the tongue base status post excision...status post tracheostomy'
Please review the following and provide your response in the progress notes.
Clinical Indicators:
Height: 5' 9'
Weight: 125 lbs
BMI: 18.5
If possible, please provide an associated diagnosis related to the abnormal BMI, such as:
Cachectic
Underweight
BMI is not significant
Other
BMI < or = to 19.9
Underweight
Weight Loss
Cachectic
Anorexia
Use of terms such as suspected, likely, concern for, or probable (associated with a specific diagnosis that is being evaluated, monitored, or treated as if it exists) are acceptable and can be coded in the inpatient setting, when documented at the
time of discharge.
Thank you,
Lilliam Nolan
CDI Specialist
Please use your independent medical judgment in providing your response.
[2025-01-30] MEDS: ROXICODONE 15 MG TUBE ×2 (15:36→19:43)
[2025-01-30] MEDS: TRANEXAMIC ACID 100 IV (15:37)
--- NOTE | 2025-01-30 17:41 | PTCARENOTE ---
no urine output , pt was straight cath for 950 ml of marlen urine
--- NOTE | 2025-01-30 20:00 | PTCARENOTE ---
Received pt. at 1900. Pt. currently sedated and on ventilator via tracheostomy. No signs of pain/discomfort. Afebrile. Heart rhythm sinus. Blood pressure normotensive. Ventilator settings verified. Lungs sound coarse. Tube feeds running via PEG
tube. Pt. requiring straight catheterization intermittently. Skin as documented. Vital signs stable at this time.
[2025-01-31] VITALS (25 sets, daily range): BP systolic 95–166; BP diastolic 54–100; BMI 18.9
--- NOTE | 2025-01-31 | PTCARENOTE ---
Pt. assessment unchanged. Remains sedated and on ventilator. Vital signs stable at this time.
[2025-01-31] MEDS: ROXICODONE 15 MG TUBE ×6 (00:07→20:00)
[2025-01-31] MEDS: DIPRIVAN 100 IV ×2 (02:08→07:52)
[2025-01-31] MEDS: NSS 1000 IV (04:21)
[2025-01-31 04:43] LABS: % Basophils 0.1 % (0-2); % Immature Granulocytes 0.5 % (0-0.5); % Lymphocytes 4.5 % (20.5-51.1); % Monocytes 5.6 % (1.7-9.3); % Neutrophils 87.3 % (42.2-75.2); Absolute Eosinophils 0.2 10^3/uL (0-0.7); Absolute Lymphocytes 0.3 10^3/uL (1.2-3.4); Absolute Monocytes 0.4 10^3/uL (0.1-0.6); Absolute Neutrophils 6.5 10^3/uL (1.4-6.5); Hematocrit 24.5 % (39.0-52.0); Hemoglobin 8.4 g/dL (13.0-18.0); Mean Corp Hgb Conc. 34.3 g/dL (33.0-37.0); Mean Corpuscular Hgb 31.9 pg (27.0-31.0); Mean Corpuscular Volume 93.2 fL (80.0-94.0); Mean Platelet Volume 8.9 fL (7.4-10.4); Nucleated Red Blood Cells % 0 % (-); Platelet Count 226 10^3/uL (130-400); Red Blood Cell Count 2.63 10^6/uL (4.70-6.10); Red Cell Dist. Width 14.4 % (11.5-14.5); White Blood Cell Count 7.5 10^3/uL (4.8-10.8)
--- NOTE | 2025-01-31 04:45 | PTCARENOTE ---
Pt. assessment remains unchanged. AM labs drawn. Vital signs stable at this time.
[2025-01-31 05:02] LABS: Triglycerides 51 mg/dl (10-149)
[2025-01-31 05:04] LABS: ALT (SGPT) 11 U/L (0-50); AST (SGOT) 14 U/L (17-59); Albumin 2.5 g/dl (3.5-5.0); Alkaline Phosphatase 60 U/L (38-126); Blood Urea Nitrogen 13 mg/dl (9-20); Calcium 7.5 mg/dl (8.4-10.2); Carbon Dioxide 26 mmol/L (22-30); Chloride 103 mmol/L (98-107); Estimated Creatinine Clearance 96 ml/min; Glucose 145 mg/dl (70-99); Potassium 3.6 mmol/L (3.5-5.1); Sodium 136 mmol/L (135-145); Total Bilirubin 0.7 mg/dl (0.2-1.3); Total Protein 5.2 g/dl (6.3-8.2); eGFR > 60.00
[2025-01-31] MEDS: DUONEB 3 ML INH ×4 (07:33→20:49)
[2025-01-31] MEDS: MIRALAX 17 GRAMS TUBE (08:44)
[2025-01-31] MEDS: LIDOCAINE 4% PATCH 1 PATCH TOPICAL (08:44)
[2025-01-31] MEDS: PREVACID 30 MG TUBE (08:55)
--- NOTE | 2025-01-31 09:40 | W.PN.INTV ---
Today's Communication / Plan
Recommendations
- Start weaning propofol and fentanyl
- Once awake transition to pressure support and eventually trach collar as tolerated
- DC maintenance IV fluids
- Start intranasal normal saline spray every hour to clear nasal passages from clotted blood
Assessment
-
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 Patient at baseline has a known cough to
tracheostomy tube. Reportedly bleeding developed the night before and patient was bringing up blood per mouth, no bleeding from the tracheostomy site however. Patient also has a diagnosis of prostate cancer s/p radiation and TURP. Patient has
received chemotherapy for the oropharyngeal cancer and follows with the [facility].
In the emergency room patient had a CT PE which was negative for any pulmonary embolism. Subsequently patient had the tracheostomy tube changed to a cuffed Shiley 6.0 and patient was connected to mechanical ventilation. ENT service evaluated the
patient and placed gauze packing. Subsequently a CT angiogram of neck was performed which was negative for an ongoing extravasation. Emergency room physician contacted [facility] and no further therapies were suggested. Patient is
being admitted to the ICU for further management and caisson worker service was consulted for further input.
01/31. 97/56, not needing any pressors. Temperature 99.8. Saturating 98% on 30% FiO2.
Hemoglobin 8.4, slight drift from 9.1 yesterday. Platelet count normal, normal WBC count. CMP unremarkable
Currently on mechanical ventilation volume control, 400/16/30%, PEEP 5. Saturating 98%.
Current infusions. Propofol and fentanyl. Maintenance IV fluids at 75 cc an hour. Tube feeding via PEG tube.
#1. Hemoptysis. Suspect this was originating from upper airway likely the tumor bed. S/p packing by ENT service 01/29, packing removed 01/30.
- Packing removed 01/30, no further bleeding noted. ENT service on case.
- Start weaning from mechanical ventilation. Cuffed Shiley tube 6.o in place (at home patient used Cuffless Portex 8.0, changes inner cannula 1-2 times per day).
- Start weaning propofol and fentanyl
- Serial H&H stable.
- Avoid antiplatelets and anticoagulants
- Clotted dark blood noted in nares, start [place] to help clear nasal passage
#2. Emphysema with 6 mm lung nodule.
- Reported significant secretions at baseline, ?Chronic bronchitis.
- Extensive smoking history and emphysema on imaging. Suspect underlying COPD
- Continue Duoneb qid, continue Scopolamine patch
- Depending on patient's clinical course, will need further workup including PFTs and serial CT surveillance as outpatient
#3. History of squamous cell carcinoma, oral cavity, status post chemotherapy and radiation.
- Patient is s/p tracheostomy as well as PEG tube
- Follows up with Dr. Galvan at [facility] as well as [facility]
- Patient was scheduled to start a second line chemotherapy t001/29, was sent to emergency room for hemoptysis
#4. H/O Smoking, more then 40 pack year smoking history
-Patient quit in 05/2024
Continue lansoprazole for GI prophylaxis
SCDs for DVT prophylaxis
Critical Care time 44 mins -- The patient is admitted for acute critical illness for the treatment of vital organ failure and/or prevention of further life-threatening conditions. Total care includes time spent in review of history, physical exam,
medications, hemodynamic/ventilator parameters, laboratory data, imaging and discussion with house staff, pharmacy, respiratory therapy, stretcher leveler operator, and nursing.
Data:
CTA Neck: 01/2025: 1. New 1.8 cm irregular shaped air-filled cavity in the right side of the oropharynx which could be secondary to interval surgical resection of tongue carcinoma or tumor necrosis.
2. Irregular shaped regions of enhancing soft tissue in the left oropharynx and posterior right oropharynx and watch dial maker space. Diagnostic possibilities are (1) tumor infiltration or (2) post therapy edema.
3. 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
4. Tracheostomy tube in place.
5. Moderate bilateral upper lobe emphysema.
6. 6 mm solid pulmonary nodule in the right upper lobe which could be a pulmonary metastasis or infectious/inflammatory pulmonary nodule.
7. Severe multilevel cervical discogenic degenerative disease with multilevel disc-osteophyte complexes causing mild spinal cord compression and central canal stenosis.
8. Less than 50% diameter stenosis in both internal carotid arteries.
CT-PE 01/2025: No evidence of central pulmonary embolism.
Changes of emphysema again seen. No findings in the lung parenchyma bilaterally to suggest hemorrhage.
Mild pericardial thickening versus tiny pericardial effusion, decreased.
Small portion of the included abdomen significantly obscured by beam hardening artifact from the patient's bilateral upper extremities. At least one small left renal cyst.
ECHO 04/2024: Normal left ventricular size, wall thickness and systolic function. No regional
wall motion abnormalities are seen. LV ejection fraction is 60-65% by Coto's
method of discs. Normal diastolic function.
Normal right ventricular size and function.
Trace tricuspid regurgitation. Estimated pulmonary artery pressure of 20-25
mmHg, assuming a right atrial pressure of 3 mmHg.
No significant valvular disease.
No prior study available for comparison.
Subjective Dataa
Subjective Data
Date of Service:
Date of Service: January 31, 2025
Subjective:
Patient currently on mechanical ventilation, sedated.
Review of Systems
General: Unobtainable - Sedation
Objective Data
Data Reviewed
Vital Signs / I&O / Oxygen:
Vital Signs
Temp Pulse Resp BP Pulse Ox
99.8 F 64 16 97/56 97
01/31/25 07:42 01/31/25 07:41 01/31/25 07:41 01/31/25 06:00 01/31/25 08:00
Intake and Output
01/30/25 01/31/25 02/01/25
06:59 06:59 06:59
Intake Total 1193.1 / 1295.2 2940.4 / 3112.5 489.2 / 489.2
Output Total 1075 / 1075 1350 / 1350
Balance 118.1 / 220.2 1590.4 / 1762.5 489.2 / 489.2
SaO2 [A/C] 97
SaO2 98
Physical Exam
General: Comfortable
HEENT: Normocephalic and Other (No oral bleeding noted. Clotted blood noted in the naris.)
Cardiovascular: S1-S2
Respiratory: Clear and Non-Labored Respirations
GI: Soft and Non Distended
Skin: Warm
Labs/Micro/Reports
Lab Data
01/31/25 04:31
01/31/25 04:31
--- NOTE | 2025-01-31 10:05 | PTCARENOTE ---
0700 patient received this am Intubated; sedated on Propofol 50mcg and Fentanyl 100 mcg; Shilley # 6 ; Vent 16/+5/400/30% Tube Feed via chronic PEG tube; Restraints to b/l wrist to prevent pulling lines
At 09:00 Propofol and Fentanyl off Weaning Trial started 5/5/30% At this time patient awake. will continue with restraints
--- NOTE | 2025-01-31 11:00 | PTCARENOTE ---
Restraints in place to prevent patient to pull trach out
--- NOTE | 2025-01-31 11:36 | W.PN.HOSP.TC ---
Today's Communication/Plan
-
Wean from MV
Continue with TXA
Monitor for bleeding/trend CBC
Wean sedation
Continue with tube feeds
Assessment / Plan
Assessment / Plan
#VDRF
#Chronic trach collar and PEG tube
#Massive hemoptysis with acute blood loss anemia
#Squamous cell carcinoma of oropharynx currently on chemotherapy
- Significant bleeding on arrival due to tumor burden in the upper airway; s/p ENT packing on 01/29 removed 01/26
- Was started on mechanical ventilation for airway protection; started on strict avoidance of AC and antiplatelet
- Received 1 unit of PRBC for blood loss; was started on TXA 1 g daily; Hgb stabilized subsequently
- Currently on MV CMV 400//20/02, has tolerated well, per ICU will start to wean from MV today
- SpO2 goal 88 to 94% with underlying COPD
- Continue to monitor for bleeding, trend CBC
- Started on [place] for clot burden
- Aspiration precautions
- Continue TXA for now
#Severe protein calorie malnutrition
- BMI here 18.9, secondary to cancer history and requirements of PEG tube feeding
- Currently on tube feeds here; albumin was 2.5 on morning lab
- Continue on Jevity 1.5 with Prosource 3 times daily
#GERD
- Home medications include lansoprazole
- No history of Cuevas's esophagus or erosive disease
#Emphysema
#Former smoker
#6 mm lung nodule
- Suspected underlying COPD, emphysema on CT scans
- Noted to have excessive smoking history, concern for chronic bronchitis as well with secretions
- Currently on DuoNebs every QID standing and scopolamine patch for secretion
- Will need to follow-up with pulm for PFTs and 6 MWT if improving
- Will also need repeat CT scan from nodule, in 6 to 12 months
#Chronic pain with opiate dependence
- Home regimen includes multimodal pain medications
- Plan to continue home regimen
#H/O prostate cancer s/p XRT and TURP
Diet: Tube feeds with Prosource supplement
DVT prophylaxis: SCDs, avoid AC and antiplatelets
CODE STATUS: Limited DNR (no compressions)
Family at bedside and updated on 01/31
Anticipated Discharge: > 48 hours
Subjective/Interval History
-
Date of Service: January 31, 2025
Seen and examined at the bedside. No acute events reported overnight. AFVSS on MV with CMV 400//30/5 with low P peak, SpO2 mid 90s
Planning for transition back to formerly [facility], [facility] and baseline respiratory status today. Was started on Rice mist for nasal passage clots
Hemoglobin downtrending from 9.1-8.4, no significant bleeding reported overnight or this morning
Objective Data
-
Labs:
Laboratory Results
01/31/25
04:31
WBC 7.5
Hgb 8.4 L
Hct 24.5 L
Plt Count 226
Sodium 136
Potassium 3.6
Chloride 103
Carbon Dioxide 26
BUN 13
Creatinine 0.5 L
Glucose 145 H
Calcium 7.5 L
Total Bilirubin 0.7
AST 14 L
ALT 11
Alkaline Phosphatase 60
Vital Signs:
Vital Signs
Temp Pulse Resp BP Pulse Ox
99.8 F 88 11 142/74 97
01/31/25 07:42 01/31/25 11:21 01/31/25 11:21 01/31/25 11:00 01/31/25 11:21
I&O
01/30/25 01/31/25 02/01/25
06:59 06:59 06:59
Intake Total 1193.1 / 1295.2 2940.4 / 3112.5 489.2 / 489.2
Output Total 1075 / 1075 1350 / 1350
Balance 118.1 / 220.2 1590.4 / 1762.5 489.2 / 489.2
Review of Systems
-
Unable to obtain full review of systems at this time due to: Patient Intubation
Physical Exam
-
General: Well Developed, No Apparent Distress, Appears Chronically Ill and Cachectic
HEENT: Normocephalic, Atraumatic, Moist Mucous Membranes, Tracheostomy Collar and Anicteric
Respiratory: Clear to Auscultation and Non Labored Respirations; Negative Accessory Resp Muscle Use
Cardiac: Regular Rhythm and S1/S2; Negative Murmur, Rub or Gallop
GI: Soft, Nontender, Nondistended, Normal Bowel Sounds and Peg Tube
Musculoskeletal: No Clubbing, No Cyanosis and No Edema
Skin: Warm and Dry; Negative Rash
Neuro: Sedated, Nonfocal/Grossly Intact and Central Nerve's Intact
Data Reviewed
-
Labs: Labs Reviewed by me, Discussed with Patient and Discussed with Family
[2025-01-31] MEDS: TYLENOL ORAL SOLUTION 650 MG TUBE (14:39)
[2025-01-31] MEDS: ROBITUSSIN 200 MG TUBE (14:39)
[2025-01-31] MEDS: TRANEXAMIC ACID 100 IV (14:40)
[2025-01-31] MEDS: ATIVAN 1 MG IV ×2 (15:03→20:00)
[2025-01-31] MEDS: NSS (PRESERVATIVE FREE) 10 ML IV (15:03)
--- NOTE | 2025-01-31 15:10 | PTCARENOTE ---
Patient on Trach color 35%. Trach shilley # 6 . Frequent productive cough with yellow thick mucus via trach . Oral white thin suctions. Oral care done. Unable to void. Bladder scanned for 1000 cc. Bladder empty via straight cath 1200cc yellow urine.
Patient AAOx 3 + Anxiety
106 BP 148/83 MAP 100 Axiliary temp 100.0 Tylenol suspension given via PEG tube
Abdomen soft non-tender PEG tube flushed auscultated for proper placement
Continues having urinary retention;
--- NOTE | 2025-01-31 16:09 | CHAP ---
Nba was sleeping, non-responsive; his and family were faithfully at his side. Emotional and spiritual support provided.
--- NOTE | 2025-01-31 17:43 | PTCARENOTE ---
17:30 While on Trach 30% : Patient appears more tired than before ST 120 . Increased secretion via trach. Switch don to previous settings AC: 16/+5/30%
--- NOTE | 2025-01-31 20:00 | PTCARENOTE ---
Received pt. at 1900. Pt. currently on ventilator. Awake, nods appropriately. Afebrile. Heart rhythm sinus. Blood pressure normotensive. Ventilator settings verified. Lungs sound coarse. Tube feeds running via PEG tube. Straight cath PRN. Skin as
documented. Discussed plan of care with patient. Vital signs stable at this time.
[2025-01-31] MEDS: SUBLIMAZE 50 MCG IV (20:14)
[2025-02-01] VITALS (26 sets, daily range): BP systolic 107–195; BP diastolic 50–112; BMI 18.9
--- NOTE | 2025-02-01 | PTCARENOTE ---
Pt. assessment unchanged. PRN medication for pain and agitation, see MAR. Remains synchronous with ventilator. Vital signs stable at this time.
[2025-02-01] MEDS: ROXICODONE 15 MG TUBE ×7 (00:27→23:15)
[2025-02-01] MEDS: TYLENOL ORAL SOLUTION 650 MG TUBE ×4 (00:51→17:52)
[2025-02-01 03:53] LABS: Hematocrit 26.5 % (39.0-52.0); Hemoglobin 8.9 g/dL (13.0-18.0); Mean Corp Hgb Conc. 33.6 g/dL (33.0-37.0); Mean Corpuscular Hgb 31.2 pg (27.0-31.0); Mean Platelet Volume 9.2 fL (7.4-10.4); Platelet Count 237 10^3/uL (130-400); Red Blood Cell Count 2.85 10^6/uL (4.70-6.10); Red Cell Dist. Width 13.9 % (11.5-14.5); White Blood Cell Count 7.1 10^3/uL (4.8-10.8)
--- NOTE | 2025-02-01 04:00 | PTCARENOTE ---
Pt. assessment remains unchanged. AM labs drawn. Vital signs stable at this time.
[2025-02-01 04:10] LABS: Blood Urea Nitrogen 14 mg/dl (9-20); Calcium 7.7 mg/dl (8.4-10.2); Carbon Dioxide 29 mmol/L (22-30); Chloride 100 mmol/L (98-107); Estimated Creatinine Clearance 98 ml/min; Glucose 142 mg/dl (70-99); Magnesium 1.7 mg/dl (1.6-2.3); Potassium 3.3 mmol/L (3.5-5.1); Sodium 136 mmol/L (135-145); Triglycerides 45 mg/dl (10-149); eGFR > 60.00
[2025-02-01] MEDS: KCL 270 MEQ IV ×2 (06:01→10:09)
[2025-02-01 06:47] LABS: Absolute Neutrophils -Man Diff 6.7 10^3/uL (1.4-6.5); Band Neutrophils 17 % (0-3); Eosinophils 1 % (0-6); Lymphocytes 3 % (20-51); Monocytes 1 % (2-9); Normal RBC Morphology Yes; Platelets Checked Yes; Segmented Neutrophils 78 % (42-75); Total Cells Counted 100; Toxic Granulation 1+
[2025-02-01 06:49] LABS: Vacuolated Segs Occasional
[2025-02-01] MEDS: DUONEB 3 ML INH ×4 (07:29→21:24)
--- NOTE | 2025-02-01 07:45 | PTCARENOTE ---
- 0700 assumed care. Patient in bed. Awake, alert, following commends. HOB elevated +Anxiety
- Normal Sinus Rhythm to telemetry 94; BP via left upper arm 120/72; MAP 86; RR 26; Core temp 101.1
-no edema pedal pulses present to palpation
- patent switched to SPONT 5/+5/30% POx 95% Trach : Shilley # 6 . No hemoptysis. productive cough with yellow thick secretion via trach . Oral secretion white thin.
- Indwelling [place] placed for urinal retention during previous shift draining clear marlen urine . Wells care done per hospital protocol
-Abdomen soft non-tender . Normal bowel sound thought. Pre-existing PEG tube in place . Proper placement present to auscultation. Jevity 1.2 infusing per order 45/hr (at goal ) Auto flush 25/hr
- Lines: RT chest subcutaneous port accessed dressing dry and intact capped at this time meds adm via Rt FA peripheral line
- Call fall within reach. Robitussin +Ativan adm per prn order
[2025-02-01] MEDS: ATIVAN 1 MG IV ×3 (07:58→21:49)
[2025-02-01] MEDS: NSS (PRESERVATIVE FREE) 10 ML IV (07:58)
[2025-02-01] MEDS: LIDOCAINE 4% PATCH 1 PATCH TOPICAL (07:59)
[2025-02-01] MEDS: MIRALAX 17 GRAMS TUBE (07:59)
[2025-02-01] MEDS: PREVACID 30 MG TUBE (08:02)
[2025-02-01 10:20] LABS: Urine Albumin 2+ (Neg - Trace); Urine Bilirubin Negative (Negative); Urine Color Yellow; Urine Glucose Negative (Negative); Urine Ketone Negative (Negative); Urine Leukocyte 2+ (Negative); Urine Nitrite Negative (Negative); Urine Occult Blood 2+ (Negative); Urine Urobilinogen 3+ (Neg - 1+)
[2025-02-01 10:24] LABS: Urine Character Slightly Cloudy (Clear)
--- NOTE | 2025-02-01 10:27 | W.PN.INTV ---
Addendum entered and electronically signed by Prabha Asif MD 02/01/25 10:36:
History of skin rash with penicillin.
Switch Unasyn to cefepime.
Original Note:
Today's Communication / Plan
Recommendations
- Send tracheal aspirate for culture sensitivity
- Blood cultures
- Start Unasyn IV every 6 hours
- Continue to wean to trach collar. Might need nightly ventilatory support
Assessment
-
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 Patient at baseline has a known cough to
tracheostomy tube. Reportedly bleeding developed the night before and patient was bringing up blood per mouth, no bleeding from the tracheostomy site however. Patient also has a diagnosis of prostate cancer s/p radiation and TURP. Patient has
received chemotherapy for the oropharyngeal cancer and follows with the [facility].
In the emergency room patient had a CT PE which was negative for any pulmonary embolism. Subsequently patient had the tracheostomy tube changed to a cuffed Shiley 6.0 and patient was connected to mechanical ventilation. ENT service evaluated the
patient and placed gauze packing. Subsequently a CT angiogram of neck was performed which was negative for an ongoing extravasation. Emergency room physician contacted [facility] and no further therapies were suggested. Patient is
being admitted to the ICU for further management and twisting press operator service was consulted for further input.
02/01. 120/72. Not on any pressors. Saturating 95% on 30% FiO2. Temperature 101.1 �F
WBC count normal at 7.1. Hemoglobin stable at 8.9.
Currently on mechanical ventilation, pressure support 5 x 5. FiO2 30%. Pulling 350-400 tidal volume
Tube feeding via PEG tube
#1. Hemoptysis. Suspect this was originating from upper airway likely the tumor bed. S/p packing by ENT service 01/29, packing removed 01/30.
- Packing removed 01/30, no further bleeding noted. ENT service on case.
- Serial H&H stable.
- Avoid antiplatelets and anticoagulants
- Clotted dark blood noted in nares, started [place] to help clear nasal passage, clearing
#2. Acute respiratory failure, at baseline s/p tracheostomy on trach collar.
- Patient at baseline wears a cough flex Portex 8.0 tracheostomy tube with trach collar. In view of hemoptysis, he was switched to Shiley 6.0 cuffed tracheostomy tube and was placed on mechanical ventilation.
- 01/31, patient was weaned to pressure support and then subsequently to trach collar all day. He started to get tired towards the end of the day and was switched back to mechanical ventilation. This morning back on pressure support 5 x 5
- Continue to wean to trach collar. Depending on patient's symptom, might need nightly pressure support versus full vent support
- Once tolerating trach collar for 24 hours, will need to switch to cuffless Portex 8.0. Patient's has brought that particular tube and it is at bedside.
#3. Fever. ?etiology
- Blood cultures, send tracheal aspirate considering it is starting to look parnell-colored and thick in consistency
- Chest x-ray without any new infiltrate
- ? Aspiration versus tumor related fever
- Initiate Unasyn and follow-up on culture and sensitivity
#4. Emphysema with 6 mm lung nodule.
- Reported significant secretions at baseline, ?Chronic bronchitis.
- Extensive smoking history and emphysema on imaging. Suspect underlying COPD
- Continue Duoneb qid, continue Scopolamine patch
- Depending on patient's clinical course, will need further workup including PFTs and serial CT surveillance as outpatient
#5. History of squamous cell carcinoma, tongue, status post chemotherapy and radiation.
- Patient is s/p tracheostomy as well as PEG tube
- Follows up with Dr. Galvan at [facility] as well as [facility]
- Patient was scheduled to start a second line chemotherapy t001/29, was sent to emergency room for hemoptysis
#4. H/O Smoking, more then 40 pack year smoking history
-Patient quit in 05/2024
Continue lansoprazole for GI prophylaxis
SCDs for DVT prophylaxis
Discussed with ENT service
Critical Care time 52 mins -- The patient is admitted for acute critical illness for the treatment of vital organ failure and/or prevention of further life-threatening conditions. Total care includes time spent in review of history, physical exam,
medications, hemodynamic/ventilator parameters, laboratory data, imaging and discussion with house staff, pharmacy, respiratory therapy, softlines supervisor, and nursing.
Data:
CTA Neck: 01/2025: 1. New 1.8 cm irregular shaped air-filled cavity in the right side of the oropharynx which could be secondary to interval surgical resection of tongue carcinoma or tumor necrosis.
2. Irregular shaped regions of enhancing soft tissue in the left oropharynx and posterior right oropharynx and marketing analyst space. Diagnostic possibilities are (1) tumor infiltration or (2) post therapy edema.
3. 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
4. Tracheostomy tube in place.
5. Moderate bilateral upper lobe emphysema.
6. 6 mm solid pulmonary nodule in the right upper lobe which could be a pulmonary metastasis or infectious/inflammatory pulmonary nodule.
7. Severe multilevel cervical discogenic degenerative disease with multilevel disc-osteophyte complexes causing mild spinal cord compression and central canal stenosis.
8. Less than 50% diameter stenosis in both internal carotid arteries.
CT-PE 01/2025: No evidence of central pulmonary embolism.
Changes of emphysema again seen. No findings in the lung parenchyma bilaterally to suggest hemorrhage.
Mild pericardial thickening versus tiny pericardial effusion, decreased.
Small portion of the included abdomen significantly obscured by beam hardening artifact from the patient's bilateral upper extremities. At least one small left renal cyst.
ECHO 04/2024: Normal left ventricular size, wall thickness and systolic function. No regional
wall motion abnormalities are seen. LV ejection fraction is 60-65% by [place]oto's
method of discs. Normal diastolic function.
Normal right ventricular size and function.
Trace tricuspid regurgitation. Estimated pulmonary artery pressure of 20-25
mmHg, assuming a right atrial pressure of 3 mmHg.
No significant valvular disease.
No prior study available for comparison.
Subjective Dataa
Subjective Data
Date of Service:
Date of Service: February 01, 2025
Subjective:
Patient on pressure support trial this morning, tolerating well.
Review of Systems
Genitourinary: Other (No new symptoms reported.)
Objective Data
Data Reviewed
Vital Signs / I&O / Oxygen:
Vital Signs
Temp Pulse Resp BP Pulse Ox
101.1 F H 93 23 120/72 95
02/01/25 08:00 02/01/25 07:30 02/01/25 07:30 02/01/25 07:00 02/01/25 07:30
Intake and Output
01/31/25 02/01/25 02/02/25
06:59 06:59 06:59
Intake Total 3710.4 / 3882.5 1609.2 / 1609.2
Output Total 1350 / 1350 2370 / 2370
Balance 2360.4 / 2532.5 -760.8 / -760.8
SaO2 [A/C] 94
SaO2 95
Physical Exam
General: Comfortable
HEENT: Normocephalic and Other (No oral bleeding noted. Clotted blood noted in the naris.)
Cardiovascular: S1-S2
Respiratory: Clear and Non-Labored Respirations
GI: Soft and Non Distended
Neurology: Awake
Skin: Warm
Labs/Micro/Reports
Lab Data
02/01/25 03:14
02/01/25 03:14
[2025-02-01 10:36] LABS: Urine Squamous Cell 0-2 /LPF (Few)
[2025-02-01 10:36] LABS: COVID-19 Antigen Negative (Negative)
[2025-02-01 10:37] LABS: Urine Bacteria Few (Negative); Urine White Cell 16-20 /HPF (0-5)
[2025-02-01] MEDS: MAGNESIUM SULFATE 100 IV (10:48)
--- NOTE | 2025-02-01 11:08 | W.PN.HOSP.TC ---
Today's Communication/Plan
-
Agree with IV Unasyn
Trend temperature curve and CBC
Continue TXA
Continue to avoid AC and antiplatelet agents
Replete potassium and magnesium
Assessment / Plan
Assessment / Plan
#Massive hemoptysis with acute blood loss anemia
#Status post VDRF
#Chronic trach collar and PEG tube
#Squamous cell carcinoma of oropharynx currently on chemotherapy
- Significant bleeding on arrival due to tumor burden in the upper airway; s/p ENT packing on 01/29 removed 01/26
- Was started on mechanical ventilation for airway protection; started on strict avoidance of AC and antiplatelet
- Received 1 unit of PRBC for blood loss; was started on TXA 1 g daily; Hgb stabilized subsequently
- Has been transition from mechanical ventilator to baseline respiratory status via trach collar
- SpO2 goal 88 to 94% with underlying COPD
- Continue to monitor for bleeding, trend CBC
- Continue with [place] for clot burden
- Aspiration precautions
- Continue TXA for now
#Fever
- Unclear etiology, possibly related to tumor burden v. clotting process v. occult infection v. reflux/aspiration from
- Has had persistent fever near 101 �F since yesterday, CXR unchanged, UA without florid signs of infection, viral testing negative
- Was started on IV Unasyn by ICU team on 02/01, agree with empiric coverage
- Consider sending respiratory cultures
- Trend CBC and temperature curve on Unasyn
#Electrolyte deficiency
- Potassium 3.3 this morning with magnesium 1.7
- Receiving 80 mEq KCl and 1 g magnesium
- Continue to monitor and replete as needed
#Severe protein calorie malnutrition
- BMI here 18.9, secondary to cancer history and requirements of PEG tube feeding
- Currently on tube feeds here; albumin was 2.5 on morning lab
- Continue on Jevity 1.5 with Prosource 3 times daily
#GERD
- Home medications include lansoprazole
- No history of Cuevas's esophagus or erosive disease
#Emphysema
#Former smoker
#6 mm lung nodule
- Suspected underlying COPD, emphysema on CT scans
- Noted to have excessive smoking history, concern for chronic bronchitis as well with secretions
- Currently on DuoNebs every QID standing and scopolamine patch for secretion
- Will need to follow-up with pulm for PFTs and 6 MWT if improving
- Will also need repeat CT scan from nodule, in 6 to 12 months
#Chronic pain with opiate dependence
- Home regimen includes multimodal pain medications
- Plan to continue home regimen
#H/O prostate cancer s/p XRT and TURP
Diet: Tube feeds with Prosource supplement
DVT prophylaxis: SCDs, avoid AC and antiplatelets
CODE STATUS: Limited DNR (no compressions)
Family at bedside and updated on 01/31, 02/01
Anticipated Discharge: > 48 hours
Subjective/Interval History
-
Date of Service: February 01, 2025
Seen and examined at the bedside. Has been spiking fever since yesterday evening, initially low-grade in <101 though most recent temp 101.1 �F. Otherwise hemodynamically stable on baseline vent settings
Was started on IV Unasyn by transcription specialist today. Sent off sputum cultures. Potassium was low at 3.3 with mag 1.7. Chest x-ray without new infiltrate, UA not consistent with UTI. COVID-negative
ROS limited by his chronic trach status
Objective Data
-
Labs:
Laboratory Results
02/01/25
03:14
WBC 7.1
Hgb 8.9 L
Hct 26.5 L
Plt Count 237
Sodium 136
Potassium 3.3 L
Chloride 100
Carbon Dioxide 29
BUN 14
Creatinine 0.4 L
Glucose 142 H
Calcium 7.7 L
Vital Signs:
Vital Signs
Temp Pulse Resp BP Pulse Ox
101.1 F H 93 23 120/72 95
02/01/25 08:00 02/01/25 07:30 02/01/25 07:30 02/01/25 07:00 02/01/25 07:30
I&O
01/31/25 02/01/25 02/02/25
06:59 06:59 06:59
Intake Total 3710.4 / 3882.5 1609.2 / 1609.2
Output Total 1350 / 1350 2370 / 2370
Balance 2360.4 / 2532.5 -760.8 / -760.8
Review of Systems
-
History Source: Patient
All other systems: Reviewed and negative
Physical Exam
-
General: Well Developed, No Apparent Distress, Appears Chronically Ill and Cachectic
HEENT: Normocephalic, Atraumatic, Moist Mucous Membranes and Anicteric
Respiratory: Clear to Auscultation and Non Labored Respirations; Negative Accessory Resp Muscle Use
Cardiac: Regular Rhythm and S1/S2; Negative Murmur, Rub, JVD or Gallop
GI: Soft, Nontender, Nondistended and Normal Bowel Sounds
Musculoskeletal: No Clubbing, No Cyanosis and No Edema
Skin: Warm, Dry and Normal Turgor; Negative Rash
Neuro: AO x 3 and Nonfocal/Grossly Intact; Negative Tremors
Psych: Calm
Data Reviewed
-
Labs: Labs Reviewed by me, Discussed with Physician (ICU) and Discussed with Patient
[2025-02-01] MEDS: STERILE WATER FOR INJECTION 10 ML IV ×2 (11:41→19:41)
[2025-02-01] MEDS: MAXIPIME 2000 MG IV ×2 (11:41→19:41)
[2025-02-01] MEDS: TRANEXAMIC ACID 100 IV (15:24)
[2025-02-01] MEDS: TRANSDERM-SCOP 1 PATCH TRANSDERM (15:28)
[2025-02-01] MEDS: ROBINUL 1 MG TUBE ×2 (17:58→23:19)
--- NOTE | 2025-02-01 20:00 | PTCARENOTE ---
Rec'd pt resting in bed, nods head appropriately to questions asked, follows simple commands, SR, weak distal pulses, skin warm/dry, #6 shiley trach- 28 % trach collar, sat 95, lungs decr & coarse, coughing up clear secretions, hypo bowel sounds, no
bm, abd soft, rec jevity 1.5 at 45ml/hr & 25ml/hr h20 flush via peg, no n/v, [place] draining yellow urine
--- NOTE | 2025-02-01 22:16 | PTCARENOTE ---
bp elevated, RR 28, sat 88, changed to cpap5/ps 5, 30% by resp therapist
--- NOTE | 2025-02-01 23:41 | PTCARENOTE ---
sys reviewed, changes noted, comf on vent,robinal 1mg via tube given for secretions
[2025-02-02] VITALS (24 sets, daily range): BP systolic 101–158; BP diastolic 63–87; BMI 18.5
--- NOTE | 2025-02-02 | PTCARENOTE ---
Inner canula cleansed & replaced, trach ties changed, CHG bath done, linens changed
[2025-02-02 03:36] LABS: Hematocrit 27.3 % (39.0-52.0); Hemoglobin 9.1 g/dL (13.0-18.0); Mean Corp Hgb Conc. 33.3 g/dL (33.0-37.0); Mean Corpuscular Hgb 31.1 pg (27.0-31.0); Mean Corpuscular Volume 93.2 fL (80.0-94.0); Mean Platelet Volume 8.8 fL (7.4-10.4); Platelet Count 242 10^3/uL (130-400); Red Blood Cell Count 2.93 10^6/uL (4.70-6.10); Red Cell Dist. Width 13.9 % (11.5-14.5)
[2025-02-02] MEDS: ROXICODONE 15 MG TUBE ×5 (03:44→19:35)
[2025-02-02] MEDS: STERILE WATER FOR INJECTION 10 ML IV ×3 (03:45→19:36)
[2025-02-02] MEDS: MAXIPIME 2000 MG IV ×3 (03:45→19:36)
[2025-02-02 03:48] LABS: Blood Urea Nitrogen 15 mg/dl (9-20); Calcium 7.7 mg/dl (8.4-10.2); Carbon Dioxide 28 mmol/L (22-30); Chloride 99 mmol/L (98-107); Estimated Creatinine Clearance 98 ml/min; Glucose 127 mg/dl (70-99); Potassium 4.1 mmol/L (3.5-5.1); Sodium 133 mmol/L (135-145); eGFR > 60.00
[2025-02-02] MEDS: TYLENOL ORAL SOLUTION 650 MG TUBE (03:58)
--- NOTE | 2025-02-02 04:02 | PTCARENOTE ---
sys reviewed, tylenol 650mg via tube given for temp
[2025-02-02] MEDS: ROBINUL 1 MG TUBE (06:01)
--- NOTE | 2025-02-02 06:10 | PTCARENOTE ---
robinal 1mg via tube given for secretions
[2025-02-02 06:56] LABS: Absolute Neutrophils -Man Diff 5.3 10^3/uL (1.4-6.5); Band Neutrophils 35 % (0-3); Lymphocytes 3 % (20-51); Segmented Neutrophils 54 % (42-75)
[2025-02-02 06:57] LABS: Eosinophils 2 % (0-6); Metamyelocytes 1 % (-); Monocytes 5 % (2-9); Total Cells Counted 100; Toxic Granulation 1+; Vacuolated Segs 1+
[2025-02-02 07:01] LABS: Normal RBC Morphology Yes; Platelets Checked Yes
[2025-02-02] MEDS: DUONEB 3 ML INH (07:34)
--- NOTE | 2025-02-02 07:55 | W.PN.HOSP.TC ---
Addendum entered and electronically signed by Dilan Hairston DO 02/03/25 13:02:
CDI: Severe protein calorie malnutrition. BMI 19. Severe loss of body fat and muscle mass.
Original Note:
Today's Communication/Plan
-
Follow blood cultures
Follow respiratory cultures
Continue to wean off ventilator as able
Continue to monitor temperature, WBC count, electrolytes, hemoglobin
CT Chest-to give further insight into patient's fever
Assessment / Plan
Assessment / Plan
Impression
Patient is a 69-year-old male, diagnosed case of oropharyngeal squamous cell carcinoma admitted with hemorrhage from tumor site. Massive hemoptysis along with acute blood loss anemia requiring 1 pack of blood transfusion. Required gauze packing
and sedation along with mechanical ventilation. Currently patient is off vasopressors, sedation and has no further bleed. Maintained on pressure support with eventual goal of resuming tracheal collar and tracheostomy tube (trocar #8)
Assessment/plan
1. Hemoptysis.
Site of origin, tumor bed. Packing done 01/29, removed 01/30, no further bleed
Required 1 pack of blood. Hemoglobin stable around 9
Did not require any further pressure support
Remains off sedation
Required mechanical ventilation, starting around 10 PM due to high blood pressure and tachypnea along with an Ativan which patient uses at home as well. Patient also uses trazodone at home which he has been off in hospital.
Cuffed Shiley tube 6.o in place (at home patient used Cuffless Portex 8.0, changes inner cannula 1-2 times per day).
[place] spray to clear nasal passages
Wean off ventilator as able
Avoid antiplatelets and anticoagulants
Continue to monitor hemoglobin
2.Fever
Unclear source, could be related to bacteremia/sepsis, ventilator associated, tumor fever, delayed blood transfusion reaction.
Had a fever of 101 �F at around 10 PM and had 101 �F fever today in the morning as well, CXR unchanged, UA without florid signs of infection, viral testing negative
Started on IV Unasyn by ICU team on 02/01, day 2 of antibiotic
Blood culture-pending
Respiratory [id number]
Many WBC
Few Squamous Epithelial Cells
Many Mixed Bacterial Morphotypes
Repeat cxr today-no change
3.Electrolyte deficiency
Hypokalemia 02/01-received 80 mEq of potassium. Potassium today 4.1. Continue to monitor replete as needed
Also received 1 g magnesium on 02/01(1.7)-follow magnesium levels
4.Severe protein calorie malnutrition
We are like to check thick and appears chronically ill possibly secondary to the cancerous process
Feeds through the gastrostomy tube
Continue on Jevity 1.5 with Prosource 3 times daily
Other medical problems
# GERD-continue PPI for GI prophylaxis as well as GERD
#Emphysema
#Former smoker
#6 mm lung nodule
- Suspected underlying COPD, emphysema on CT scans
- Noted to have excessive smoking history, concern for chronic bronchitis as well with secretions-on scopolamine patch and DuoNebs 4 times daily standing order
- Will need to follow-up with pulm for PFTs and 6 MWT if improving
- Will also need repeat CT scan from nodule, in 6 to 12 months
#Chronic pain with opiate dependence
- Home regimen includes multimodal pain medications
- Plan to continue home regimen
#H/O prostate cancer s/p XRT and TURP
Diet: Tube feeds with Prosource supplement
DVT prophylaxis: SCDs, avoid AC and antiplatelets given the recent bleed
CODE STATUS: Limited DNR (no compressions), tracheostomy is okay which is baseline for patient
Anticipated Discharge: 24 - 48 hours
Subjective/Interval History
-
Date of Service: February 02, 2025
Patient awake, responding well to commands, sitting in bed with hunched over neck, notes with head in response to questions
Objective Data
-
Labs:
Laboratory Results
02/02/25
03:11
WBC 6.0
Hgb 9.1 L
Hct 27.3 L
Plt Count 242
Sodium 133 L
Potassium 4.1
Chloride 99
Carbon Dioxide 28
BUN 15
Creatinine 0.4 L
Glucose 127 H
Calcium 7.7 L
Vital Signs:
Vital Signs
Temp Pulse Resp BP Pulse Ox
101 F H 82 20 121/66 94
02/02/25 04:00 02/02/25 07:37 02/02/25 07:37 02/02/25 06:00 02/02/25 07:37
I&O
02/01/25 02/02/25 02/03/25
06:59 06:59 06:59
Intake Total 1609.2 / 1609.2 1530 / 1530
Output Total 2370 / 2370 2175 / 2175
Balance -760.8 / -760.8 -645 / -645
Review of Systems
-
All other systems: Reviewed and negative
Physical Exam
-
General: Fever, Appears Chronically Ill, Cachectic and Other (Secretions from mouth, on mechanical ventilation)
HEENT: Normocephalic, Atraumatic and Other (Tracheostomy tube in place, on mechanical ventilation with an FiO2 of 30 and pressure support of 5 x 5)
Respiratory: Other (Harsh vesicular breathing, no accessory muscle use, no crackles in chest)
Cardiac: Regular Rhythm, S1/S2 and Other (No murmurs rub or gallop)
GI: Soft, Nontender and Normal Bowel Sounds
Musculoskeletal: No Clubbing, No Cyanosis and No Edema
Skin: Warm, Dry and Normal Turgor
Neuro: Awake and Other (Able to follow commands and communicate with eyes and head nodding)
Psych: Calm
[2025-02-02] MEDS: LIDOCAINE 4% PATCH 1 PATCH TOPICAL (07:57)
[2025-02-02] MEDS: PREVACID 30 MG TUBE (07:58)
[2025-02-02] MEDS: MIRALAX 17 GRAMS TUBE (07:58)
--- NOTE | 2025-02-02 08:00 | PTCARENOTE ---
Assumed care of patient. Pt rec'd sleeping...drowsy but arousable. Nods head and follows commands. S1 S2 reg w/ NSR on monitor. Weak PP. No edema. Knee hi SCD's on. #6 cuffed shiley trach....vent settings: CPAP 5/PSV 5/30%...sats 98%. Lungs
diminished...scattered coarse. Suctioned orally and via trach for thick foul smelling parnell secretions. Trach ties clean. Trach site care completed. Abdomen round...+hypo BS. Peg tube noted. Site reddened...area cleansed and 3M applied w/ new
dressing. Jevity 1.5 @ 45ml/hr w/ 25ml/hr H2O flushes...prosource given. [place] draining yellow urine (re: retention). Skin pale in color. Sacrum intact...repositioned q2h. (R) SQ port. LFA 20P. VS documented. Call fall within reach. Will
continue to monitor closey.
--- NOTE | 2025-02-02 08:15 | W.PN.INTV ---
Today's Communication / Plan
Recommendations
Continue cefepime for Pseudomonas spp. pneumonia
Follow-up blood culture
Continue trach collar today with VBG later today � if patient is stable on trach collar then would continue trach collar throughout the night as long as he is stable with work of breathing and SpO2 >90%
Placed back onto mechanical ventilation on CPAP: 5 if he is not tolerating trach collar tonight
If he does tolerate trach collar for >24 hours, then will replace his current 6.0 trach to his home Portex 8.0 that he wears at home on 02/03 and do [facility] valve trial
Continue ICU level care for this critically ill patient
Assessment
-
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 Patient at baseline has a known cough to
tracheostomy tube. Reportedly bleeding developed the night before and patient was bringing up blood per mouth, no bleeding from the tracheostomy site however. Patient also has a diagnosis of prostate cancer s/p radiation and TURP. Patient has
received chemotherapy for the oropharyngeal cancer and follows with the [facility].
In the emergency room patient had a CT PE which was negative for any pulmonary embolism. Subsequently patient had the tracheostomy tube changed to a cuffed Shiley 6.0 and patient was connected to mechanical ventilation. ENT service evaluated the
patient and placed gauze packing. Subsequently a CT angiogram of neck was performed which was negative for an ongoing extravasation. Emergency room physician contacted [facility] and no further therapies were suggested. Patient is
being admitted to the ICU for further management and performance specialist service was consulted for further input.
#1. Hemoptysis - now resolved s/p packing via ENT + nebulized TXA Suspect this was originating from upper airway likely the tumor bed. S/p packing by ENT service 01/29, packing removed 01/30.
- Packing removed 01/30, no further bleeding noted. ENT service on case.
- Serial H&H stable.
- Avoid antiplatelets and anticoagulants for now
- Clotted dark blood noted in nares, started prn Rebecca Mercer to help clear nasal passage, clearing
- Last day of nebulized TXA today
#2. Acute respiratory failure, at baseline s/p tracheostomy on trach collar.
- Patient at baseline wears a cough flex Portex 8.0 tracheostomy tube with trach collar. In view of hemoptysis, he was switched to Shiley 6.0 cuffed tracheostomy tube and was placed on mechanical ventilation.
- 01/31, patient was weaned to pressure support and then subsequently to trach collar all day. He started to get tired towards the end of the day and was switched back to mechanical ventilation. on AM of 02/01, he was back on pressure support 5 x 5
- As of 02/02, he was now tolerating trach collar after being on pressure support via vent overnight
- Continue with trach collar and monitor respiratory status, SpO2 and work of breathing, and as long as he is saturating >90% and not in respiratory distress would keep on trach collar for as long as possible, ideally throughout the night with goal
of doing [facility] [facility] valve tomorrow (02/03)
- Placed back onto the ventilator on pressure support with PS: 5, CPAP: 5 if he does become tachypneic tonight
- Check venous blood gas later today to assure that he is not retaining CO2; continue to trend blood gas to assure pH + pCO2 remained stable
- Once tolerating trach collar for 24 hours, will need to switch to cuffless Portex 8.0. Patient's has brought that particular tube and it is at bedside
- Patient is on prednisone as an outpatient, likely to reduce swelling from his head and neck cancer to resume prednisone today with slow taper (appears he has been on prednisone 30 mg prescribed him in mid December 2024, and prior to that was on 20
mg daily the month prior, as per pharmacist review of his outpatient medical records during rounds today on 02/02)
#3. Fever -due to Pseudomonas pneumonia
- His secretions coming out of his tracheostomy site are foul-smelling and it is positive for Pseudomonas (sensitivities pending)
- He was started on cefepime on 02/01 which he should be continued on for at least 7 days
- Follow-up blood cultures collected 02/01/2025 which shows NGTD
-Of note, urine culture also positive for Enterococcus species � follow-up sensitivities
#4. Emphysema with 6 mm lung nodule.
- Reported significant secretions at baseline, ?Chronic bronchitis.
- Extensive smoking history and emphysema on imaging. Suspect underlying COPD
- Continue Duoneb but changed from scheduled QID to q4hr prn given tachycardia this morning, and also add on a prn nebulized 3% if needed for secretions
- Continue Scopolamine patch which is a home med --> if secretions continue to be thick then we will need to remove this patch
- Depending on patient's clinical course, will need further workup including PFTs and serial CT surveillance as outpatient
#5. History of squamous cell carcinoma, tongue, status post chemotherapy and radiation.
- Patient is s/p tracheostomy as well as PEG tube
- Follows up with Dr. Galvan at [facility] as well as [facility] --> consult oncology now
- Patient was scheduled to start a second line chemotherapy t001/29, was sent to emergency room for hemoptysis
#4. H/O Smoking, more then 40 pack year smoking history
-Patient quit in 05/2024
Continue lansoprazole for GI prophylaxis
SCDs for DVT prophylaxis
Continue ICU level care for this critically ill patient
Critical care statement: A total of 37 minutes of critical care time was provided for this patient today. This includes management of unstable vital signs, evaluation of the patient at bedside, reviewing the patient's pertinent medical records
including radiographs, microbiology, laboratory evaluations, and discussion with primary team, consultants, pharmacy, nutrition, physical therapy, case management, charge nurse, critical care nursing, and respiratory therapy.
Data:
CTA Neck: 01/2025: 1. New 1.8 cm irregular shaped air-filled cavity in the right side of the oropharynx which could be secondary to interval surgical resection of tongue carcinoma or tumor necrosis.
2. Irregular shaped regions of enhancing soft tissue in the left oropharynx and posterior right oropharynx and cargo bracer space. Diagnostic possibilities are (1) tumor infiltration or (2) post therapy edema.
3. 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
4. Tracheostomy tube in place.
5. Moderate bilateral upper lobe emphysema.
6. 6 mm solid pulmonary nodule in the right upper lobe which could be a pulmonary metastasis or infectious/inflammatory pulmonary nodule.
7. Severe multilevel cervical discogenic degenerative disease with multilevel disc-osteophyte complexes causing mild spinal cord compression and central canal stenosis.
8. Less than 50% diameter stenosis in both internal carotid arteries.
CT-PE 01/2025: No evidence of central pulmonary embolism.
Changes of emphysema again seen. No findings in the lung parenchyma bilaterally to suggest hemorrhage.
Mild pericardial thickening versus tiny pericardial effusion, decreased.
Small portion of the included abdomen significantly obscured by beam hardening artifact from the patient's bilateral upper extremities. At least one small left renal cyst.
ECHO 04/2024: Normal left ventricular size, wall thickness and systolic function. No regional
wall motion abnormalities are seen. LV ejection fraction is 60-65% by Coto's
method of discs. Normal diastolic function.
Normal right ventricular size and function.
Trace tricuspid regurgitation. Estimated pulmonary artery pressure of 20-25
mmHg, assuming a right atrial pressure of 3 mmHg.
No significant valvular disease.
No prior study available for comparison.
Subjective Dataa
Subjective Data
Date of Service:
Date of Service: February 02, 2025
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
Subjective:
Patient was seen and evaluated this morning. Remains on trach collar with FiO2 30%. Saturating 95% with heart rate 96 and BP 129/79. Tolerated Tc until midnight then was placed onto vent for remainder of night until this AM at around 9AM (patient
was on CPAP of 5 overnight with FiO2 30%). No hemoptysis overnight. Remains on TXA. Has thick, found smelling secretins from trach. I spoke to the patient's friend, Humble, and then also the patient's this morning. Patient currently on tube
feeds at 55 cc/h.
Review of Systems
General: Other (Unobtainable due to patient's acute clinical status/unable to speak due to trach/secretions)
Objective Data
Data Reviewed
Vital Signs / I&O / Oxygen:
Vital Signs
Temp Pulse Resp BP Pulse Ox
101 F H 82 20 121/66 93
02/02/25 04:00 02/02/25 07:37 02/02/25 07:37 02/02/25 06:00 02/02/25 09:01
Intake and Output
02/01/25 02/02/25 02/03/25
06:59 06:59 06:59
Intake Total 1609.2 / 1609.2 1530 / 1600 70 / 70
Output Total 2370 / 2370 2175 / 2175
Balance -760.8 / -760.8 -645 / -575 70 / 70
SaO2 [CPAP/PSV] 94
SaO2 [A/C] 95
SaO2 93
Physical Exam
General: Respiratory Distress (negative), Comfortable, Chills (negative) and Sweats (negative)
HEENT: Normocephalic and Other (+trach in place with thick, foul smelling mucous coming out)
Cardiovascular: S1-S2
Respiratory: Wheeze (negative), Crackles (Bilaterally mainly in the upper lung freder[place]), Rhonchi (negative), Non-Labored Respirations and Stridor (negative)
GI: Soft, Non Distended, Non Tender and Normal Bowel Sounds
Neurology: Awake and Tremors (negative)
Skin: Warm and Dry
Labs/Micro/Reports
Lab Data
02/02/25 03:11
02/02/25 03:11
Microbiology
02/01/25 09:58 Urine Urine Culture - Preliminary
Enterococcus species
02/01/25 13:10 Tracheal Aspirate Gram Stain - Preliminary
02/01/25 13:23 Nasal Swab Influenza Types A & B (ROMMEL) - Final
Negative for Influenza A & B, NAAT
Negative results must be combined with clinical observations
and patient history.
Nucleic Acid Amplification test (NAAT)performed on the
[facility] platform.
[2025-02-02 10:35] LABS: Magnesium 1.8 mg/dl (1.6-2.3)
--- NOTE | 2025-02-02 11:28 | PHA.VAN.IN ---
Assessment
- Assessment
Renal Function: Appears similar to baseline
Maximum Temperature: 101 - 5/12 0400
Concomitant Antimicrobials: cefepime
AUC Dosing Plan
- Dosing Variables
Dosing Weight (kg): 57
Dosing CrCl (ml/min): 96
Vd coefficient (L/kg): 0.7
- Empiric Dosing
Initial / Loading Dose: in lieu of loading dose start 750 mg x 1 now
Maintenance Regimen: 750 mg q12h to start at 1800 today
Estimated AUC (mcg*h/mL): 466
Estimated Peak (mcg*h/mL): 29.6
Estimated Trough (mcg/ml): 11.7
Estimated Half Life (H): 8.2
- Monitoring
No levels ordered at this time: consider levels when pt nears steady state
Pharmacokinetics Vancomycin I
- -
Patient Age: 69
Patient Sex: Male
Vancomycin Day #: 1
Indication: Genito-Urinary Tract
Requesting Provider: Ronni
Pertinent Antimicrobial Allergies:
penicillins - rash
Height / Weight:
Height 5 ft 9 in
Actual Weight 56.7 kg
Pertinent Past Medical History: BMI 18; sq cell Ca, tongue s/p chemo,radiation
- Vital Signs / Lab Results
Temp Pulse Resp BP Pulse Ox
98.6 F 107 20 129/79 96
02/02/25 08:00 02/02/25 10:00 02/02/25 10:00 02/02/25 10:00 02/02/25 10:00
Lab Results - Hematology
01/31/25 02/01/25 02/02/25
04:31 03:14 03:11
WBC 7.5 7.1 6.0
Band Neutrophils 17 H 35 H D
Lab Results - Chemistry
01/31/25 02/01/25 02/02/25
04:31 03:14 03:11
BUN 13 14 15
Creatinine 0.5 L 0.4 L 0.4 L
Estimated Creat Clear 96 98 98
Albumin 2.5 L
Lab Results - Urine
02/01/25
09:58
Urine Nitrite (Reflex) Negative
Leukocyte Esterase Rfl 2+ A
Urine WBC (Reflex) 16-20 A
Ur Squamous Epith Cells 0-2
Urine Bacteria (Reflex) Few A
Microbiology Results
02/01/25 13:10 Respiratory Culture - Preliminary
Tracheal Aspirate Pseudomonas species
Gram Stain - Preliminary
02/01/25 09:58 Urine Culture - Preliminary
Urine Enterococcus species
02/01/25 13:23 Influenza Types A & B (ROMMEL) - Final
Nasal Swab Negative for Influenza A & B, NAAT
Negative results must be combined with clinical observations
and patient history.
Nucleic Acid Amplification test (NAAT)performed on the
[employer] platform.
[2025-02-02] MEDS: DELTASONE 30 MG TUBE (11:31)
[2025-02-02] MEDS: ATIVAN 0.5 MG TUBE (11:31)
[2025-02-02] MEDS: MAGNESIUM OXIDE 500 MG TUBE (11:31)
[2025-02-02] MEDS: ROBITUSSIN 200 MG TUBE ×3 (11:31→21:48)
[2025-02-02] MEDS: VANCOCIN 150 IV ×2 (12:00→18:07)
--- NOTE | 2025-02-02 12:00 | PTCARENOTE ---
Pt remains on 30% trach collar...sats 96%. Trach suctioning/trach cleaning done frequently....suctioned for thick foul smelling parnell secretions. Oral care done q2h. Pt uncooperative w/ trach care and repositioning at times. Call fall within
reach. Will continue to monitor.
[2025-02-02] MEDS: TRANEXAMIC ACID 100 IV (13:17)
--- NOTE | 2025-02-02 14:55 | CON.ONC ---
Consultation
-
Date Consultation Requested: 02/02/25
Date Consultation Performed: 02/02/25
Requesting Provider: Dilan Hairston
Performing Provider: Sandy Cain
Reason for Consultation: H&N Ca
Impression
Impression
base of the tongue recurrent disease squamous cell carcinoma p16 high risk HPV negative s/p C 1 pembro, carbo, taxol 01/29 with pegfilgrastim on 01/30
ABLA from tumor s/p 1 UPRBC 01/29, Hgb stable 9.1
Fever, not neutropenic
PEG
Trach
chronic pain, on chronic opioids
malnutrition
Plan
Plan
abx per primary service, follow cultures, f/u CT chest
on tranexamic acid 1000mg daily
GOC discussed with at bedside, currently goals remain restorative, she would like to take 1 day at a time
OP treatment pembro, carbo, taxol 01/29 with pegfilgrastim on 01/30 rescheduling dependent on hospital outcomes
Patient History
History of Present Illness
69 yo M with presented with hemoptysis from the OID. Bleeding started 01/28 overnight. He reported blood from trach and reported that he was passing clots via his trach. He underwent trach exchange and packing to hemorrhaging tumor by ENT.
Packing was removed 01/30 and he has no further bleeding. He received 1U PRBC, antiplatelet therapy is on hold, and he has been receiving TXA. Hospital course c/b fever 101F.
In brief, head neck carcinoma at the base of the tongue clinical T3 N0 M0 stage III squamous cell carcinoma p16 high risk HPV negative that was treated with concurrent CDDP 40 mg/m2 weekly chemotherapy + XRT and unfortunately was found to have
recurrent disease. He declined extensive debilitating surgery in favor of systemic therapy. He was scheduled for 1st cycle of pembro, carbo, taxol 01/29 with pegfilgrastim on 01/30, however, was admitted with hemoptysis.
Unable to obtain history due poor historian. History obtained via chart review and at bedside.
Past-Medical/Surgical History
PMH:
CAD, Squamous cell cancer of the tongue, Hypertension, prostate carcinoma treated with ADT + radiation therapy
PSH:
Repair of a hip fracture
Diagnostic bronchoscopy
Laryngeal endoscopy
Tracheotomy
G-tube
Social History
Tobacco: Former Smoker
Alcohol: Former ETOH
Drug: None
Personal:
Living: With Family
Family History: Not pertinent
Patient Medication
�Medication �Instructions �Recorded �Confirmed �Last Taken �Type
cyanocobalamin (vitamin B-12) 1,000 mcg feeding tube DAILY 05/26/24 01/29/25 01/28/25 History
1,000 mcg tablet Supplement
glycopyrrolate 1 mg/5 mL (0.2 1 mg feeding tube Q6HPRN PRN 07/25/24 01/29/25 01/28/25 History
mg/mL) oral solution secretions
scopolamine base 1 mg over 3 days 1 patch transdermal Q3D SECRETIONS 08/15/24 01/29/25 01/27/25 History
transdermal patch
acetaminophen 650 mg/20.3 mL oral 650 mg (20.3 mL) feeding tube 10/11/24 01/29/25 01/28/25 Rx
solution Q4HPRN PRN mild pain/ fever >
100.5 #500 mL
guaifenesin 100 mg/5 mL oral liquid 200 mg (10 mL) feeding tube Q6HPRN 10/11/24 01/29/25 01/28/25 Rx
PRN cough/congestion #120 mL
lansoprazole 30 mg delayed 30 mg feeding tube DAILY #30 tabs 10/11/24 01/29/25 Unknown Rx
release,disintegrating tablet
(Prevacid SoluTab)
lidocaine 4 % topical patch 1 patch topical DAILY left back 10/11/24 01/29/25 01/28/25 Rx
pain #30 ea
lorazepam 2 mg/mL oral concentrate 1 mg (0.5 mL) feeding tube TID PRN 10/11/24 01/29/25 01/28/25 Rx
agitation #30 mL
prednisone 10 mg tablet 60 mg PO DIRECTED Cancer 01/27/25 01/29/25 01/28/25 History
lorazepam 2 mg/mL oral concentrate 1 mg feeding tube DAILY Mental 01/29/25 01/29/25 Unknown History
Health/Anxiety
oxycodone 10 mg tablet 15 mg feeding tube Q4H Pain 01/29/25 01/29/25 Unknown History
polyethylene glycol 3350 17 gram 17 g feeding tube DAILYPRN PRN 01/29/25 01/29/25 Unknown History
oral powder packet constipation
trazodone 50 mg tablet 50 mg feeding tube HSPRN PRN sleep 01/29/25 01/29/25 Unknown History
Active Medications
Generic Name Dose Route Start Last Admin
Trade Name Freq PRN Reason Stop Dose Admin
Acetaminophen 650 mg 01/29/25 17:38 02/02/25 03:58
Acetaminophen (Oral Solution) 650 Mg/20.3 Ml Cup TUBE 02/26/25 17:37 650 mg
Q4HPRN PRN Administration
mild pain/ fever > 100.5
Albuterol/Ipratropium 3 ml 02/02/25 11:07
Ipratropium 0.5/Albuterol 3 Mg (3 Ml Ampul) INH
R Q4HPRN PRN
SOB/wheezing
Protocol
Bisacodyl 10 mg 01/29/25 17:38
Bisacodyl 10 Mg Rectal Suppository RECTAL 02/26/25 17:37
[id number] PRN
constipation
Cefepime HCl 2,000 mg 02/01/25 12:00 02/02/25 11:31
Cefepime Hcl 2,000 Mg/12.5 Ml Vial IV 2,000 mg
Q8H EDUARDO Administration
Fentanyl Citrate 50 mcg 01/29/25 17:38 01/31/25 20:14
Fentanyl (50 Mcg/Ml) 100 Mcg/2 Ml Ampul IV 02/12/25 17:37 50 mcg
[id number] PRN Administration
see protocol
Protocol
Glycopyrrolate 1 mg 01/29/25 18:12 02/02/25 06:01
Glycopyrrolate 1 Mg Tablet TUBE 02/26/25 18:11 1 mg
Q6HPRN PRN Administration
secretions
Guaifenesin 200 mg 01/29/25 17:38 01/31/25 14:39
Guaifenesin Oral Solution (200 Mg/10 Ml) Cup TUBE 02/26/25 17:37 200 mg
Q6HPRN PRN Administration
cough/congestion
Guaifenesin 200 mg 02/02/25 13:00 02/02/25 11:31
Guaifenesin Oral Solution (200 Mg/10 Ml) Cup TUBE 02/08/25 08:01 200 mg
QID EDUARDO Administration
Heparin Sodium (Porcine) 500 unit 02/02/25 03:15 02/02/25 10:03
Heparin Flush Pf (100 Unit/Ml) 5 Ml Syringe IV 03/02/25 03:14 500 unit
PRN PRN Administration
PORT FLUSH
Tranexamic Acid 1,000 mg in 100 mls @ 200 mls/hr 01/30/25 14:00 02/02/25 13:17
Tranexamic Acid IV 02/27/25 13:59 100 mls
DAILY@1400 EDUARDO Administration
Vancomycin HCl 750 mg in 150 mls @ 150 mls/hr 02/02/25 12:00 02/02/25 12:00
Vancocin IV 150 mls
BID@0600,1800 EDUARDO Administration
Protocol
Lansoprazole 30 mg 01/30/25 08:00 02/02/25 07:58
Lansoprazole 30 Mg Solutab TUBE 02/27/25 07:59 30 mg
DAILY EDUARDO Administration
Lidocaine 1 patch 01/30/25 08:00 02/02/25 07:57
Lidocaine 4% Topical Patch TOPICAL 02/27/25 07:59 1 patch
DAILY EDUARDO Administration
Protocol
Lorazepam 1 mg 01/29/25 17:58 02/01/25 21:49
Lorazepam 2 Mg/Ml Vial IV 02/26/25 17:57 1 mg
Q4HPRN PRN Administration
Agitation
Lorazepam 0.5 mg 02/02/25 12:00 02/02/25 11:31
Lorazepam 0.5 Mg Tablet TUBE 03/02/25 11:59 0.5 mg
DAILY EDUARDO Administration
Oxycodone HCl 15 mg 01/30/25 16:00 02/02/25 11:31
Oxycodone 5 Mg Regular Release Tablet TUBE 02/13/25 15:59 15 mg
Q4 EDUARDO Administration
Polyethylene Glycol 17 grams 01/29/25 17:38
Polyethylene Glycol Powder 17 Grams Packet TUBE 02/26/25 17:37
DAILYPRN PRN
constipation
Polyethylene Glycol 17 grams 01/30/25 08:00 02/02/25 07:58
Polyethylene Glycol Powder 17 Grams Packet TUBE 02/27/25 07:59 17 grams
DAILY EDUARDO Administration
Prednisone 30 mg 02/02/25 11:00 02/02/25 11:31
Prednisone 10 Mg Tablet TUBE 02/06/25 08:01 30 mg
DAILY EDUARDO Administration
Prednisone 20 mg 02/07/25 08:00
Prednisone 20 Mg Tablet TUBE 03/07/25 07:59
DAILY EDUARDO
Scopolamine HBr 1 patch 01/29/25 18:00 02/01/25 15:28
Scopolamine Patch (1 Mg/3 Days) TRANSDERM 02/26/25 17:59 1 patch
Q3D EDUARDO Administration
Senna/Docusate Sodium 1 tablet 01/29/25 17:38
Docusate W/Senna (Coco-Colace) Tablet TUBE 02/26/25 17:37
BIDPRN PRN
constipation
Sodium Chloride 0 ml 01/29/25 19:00 02/01/25 07:58
Sodium Chloride 0.9% (Preservative Free) 10 Ml Vial IV 02/26/25 18:59 10 ml
PRN PRN Administration
IV Lorazepam dilution
Protocol
Sodium Chloride 0 flush 01/29/25 19:00
Sodium Chloride 0.9% (Flush) Syringe IV 02/26/25 18:59
PER PROTOCOL EDUARDO
Sodium Chloride 2 sprays 01/31/25 09:02
Sodium Chloride 0.65% Nasal Scooba 45 Ml Bottle NASAL 02/28/25 09:01
Q1HPRN PRN
Obstruction
Sodium Chloride 1 vial 02/02/25 11:06
Sodium Chloride 3% For Inhalation 4 Ml Vial INH
R Q4HPRN PRN
assist with expectoration
Sterile Water 10 ml 02/01/25 12:00 02/02/25 11:31
Sterile Water For Injection 10 Ml Vial IV 03/01/25 11:59 10 ml
Q8H EDUARDO Administration
Review of Systems
-
Unable to obtain full review of systems at this time due to: Patient Intubation
Physical Exam
-
General: Appears Chronically Ill and Other (trach)
HEENT: Moist Mucous Membranes; Negative Jaundice
Cardiology: Normal Sinus Rhythm
Pulmonary: Clear
GI: Soft and Other (PEG)
Extremities: Pulses Present; Negative Edema
Skin: Warm
Labs
Lab Results
WBC 6.0 10^3/uL (4.8-10.8) 02/02/25 03:11
RBC 2.93 10^6/uL (4.70-6.10) L 02/02/25 03:11
Hgb 9.1 g/dL (13.0-18.0) L 02/02/25 03:11
Hct 27.3 % (39.0-52.0) L 02/02/25 03:11
MCV 93.2 fL (80.0-94.0) 02/02/25 03:11
MCH 31.1 pg (27.0-31.0) H 02/02/25 03:11
MCHC 33.3 g/dL (33.0-37.0) 02/02/25 03:11
RDW 13.9 % (11.5-14.5) 02/02/25 03:11
Plt Count 242 10^3/uL (130-400) 02/02/25 03:11
MPV 8.8 fL (7.4-10.4) 02/02/25 03:11
Abs Immat Gran (auto) 0.0 10^3/uL (0-0.05) 01/31/25 04:31
Absolute Neuts (auto) 6.5 10^3/uL (1.4-6.5) 01/31/25 04:31
Absolute Lymphs (auto) 0.3 10^3/uL (1.2-3.4) L 01/31/25 04:31
Absolute Monos (auto) 0.4 10^3/uL (0.1-0.6) 01/31/25 04:31
Absolute Eos (auto) 0.2 10^3/uL (0-0.7) 01/31/25 04:31
Absolute Basos (auto) 0.0 10^3/uL (0-0.2) 01/31/25 04:31
Immature Gran % 0.5 % (0-0.5) 01/31/25 04:31
Neutrophils % 87.3 % (42.2-75.2) H 01/31/25 04:31
Lymphocytes % 4.5 % (20.5-51.1) L 01/31/25 04:31
Monocytes % 5.6 % (1.7-9.3) 01/31/25 04:31
Eosinophils % 2.0 % (0-6) 01/31/25 04:31
Basophils % 0.1 % (0-2) 01/31/25 04:31
Creatinine 0.4 mg/dL (0.7-1.3) L 02/02/25 03:11
Vital Signs
Vital Signs
Temp Pulse Resp BP Pulse Ox
99.3 F 90 20 136/69 96
02/02/25 12:25 02/02/25 12:25 02/02/25 12:25 02/02/25 12:00 02/02/25 12:25
[2025-02-02] MEDS: ATIVAN 1 MG IV ×2 (15:11→19:08)
--- NOTE | 2025-02-02 15:29 | CM ---
Reviewed the chart notes and spoke with the patient and spouse at the bedside. Patient on trach collar. Per spouse, she will not be able to take him home if he is not mobile. CM continues to be available to patient/family and is monitoring
medical plan for needs at discharge.
Plan: Discharge plans will depend on the patient's progress. If needing SNF off vent patient's spouse only agrees to [facility].
--- NOTE | 2025-02-02 16:00 | PTCARENOTE ---
No major changes in physical assessment. Frequent oral and trach suctioning done due to copious thick parnell secretions. VBG to be sent per MD orders. at bedside and fully updated. All questions answered and emotional support provided. Call
fall within reach. Will continue to monitor.
[2025-02-02 16:30] LABS: Venous Blood Gas B.E. 3.2 mmol/L (-4 to +4); Venous Blood Gas HCO3 27.9 mmol/L (22-27); Venous Blood Gas O2 Sat % 85.8 %; Venous Blood Gas pCO2 42 mmHg (35-48); Venous Blood Gas pH 7.43 (7.32-7.43); Venous Blood Gas pO2 53 mmHg (30-50)
--- NOTE | 2025-02-02 20:00 | PTCARENOTE ---
Rec'd pt restless, taking off gown, pulling at salazar, follows commands, ativan 1mg iv given at 1910, denies pain, ST, bp stable, weak distal pulses, skin warm/dry, O2 via 28% trach collar- #6 shiley trach, lg amt parnell secretions via trach, lungs
coarse, sat 94, Hypo bowel sounds, no bm, abd soft, no n/v, rec jevity 1.5 at 55ml/hr & 25ml/hr h20 flush via peg, salazar draining slightly pink tinged urine- pt was pulling at salazar and took stat lock off
[2025-02-02] MEDS: DESYREL 50 MG TUBE (21:48)
--- NOTE | 2025-02-02 21:49 | PTCARENOTE ---
Addendum entered by Holly Andres RN 02/02/25 21:55:
trach care donhe
Original Note:
restless , trying to climb oob, sat 88, ST up to 125, bp elevated, placed on cpap 5/ ps 5, 30% fio2 by resp therapist,lip bleeding sm amt, trazadone 50mg via tube,
[2025-02-03] VITALS (25 sets, daily range): BP systolic 99–149; BP diastolic 67–121; BMI 18.1
[2025-02-03] MEDS: ROXICODONE 15 MG TUBE ×7 (00:06→23:44)
--- NOTE | 2025-02-03 00:10 | PTCARENOTE ---
sys reviewed, changes noted, CHG bath done, linens changed
[2025-02-03] MEDS: MAXIPIME 2000 MG IV ×3 (03:22→19:43)
[2025-02-03] MEDS: STERILE WATER FOR INJECTION 10 ML IV ×3 (03:22→19:43)
[2025-02-03 03:42] LABS: Hematocrit 26.1 % (39.0-52.0); Hemoglobin 8.7 g/dL (13.0-18.0); Mean Corp Hgb Conc. 33.3 g/dL (33.0-37.0); Mean Corpuscular Hgb 30.6 pg (27.0-31.0); Mean Corpuscular Volume 91.9 fL (80.0-94.0); Platelet Count 248 10^3/uL (130-400); Red Blood Cell Count 2.84 10^6/uL (4.70-6.10); Red Cell Dist. Width 13.6 % (11.5-14.5)
[2025-02-03 03:58] LABS: ALT (SGPT) 12 U/L (0-50); AST (SGOT) 14 U/L (17-59); Albumin 2.5 g/dl (3.5-5.0); Alkaline Phosphatase 74 U/L (38-126); Blood Urea Nitrogen 24 mg/dl (9-20); Calcium 7.9 mg/dl (8.4-10.2); Carbon Dioxide 31 mmol/L (22-30); Chloride 102 mmol/L (98-107); Estimated Creatinine Clearance 96 ml/min; Glucose 151 mg/dl (70-99); Potassium 3.7 mmol/L (3.5-5.1); Sodium 136 mmol/L (135-145); Total Bilirubin 0.5 mg/dl (0.2-1.3); Total Protein 5.2 g/dl (6.3-8.2); Triglycerides 66 mg/dl (10-149); eGFR > 60.00
[2025-02-03 04:03] LABS: % Basophils 0.2 % (0-2); % Eosinophils 0.8 % (0-6); % Immature Granulocytes 0.7 % (0-0.5); % Lymphocytes 4.8 % (20.5-51.1); % Monocytes 4.6 % (1.7-9.3); % Neutrophils 88.9 % (42.2-75.2); Absolute Eosinophils 0.1 10^3/uL (0-0.7); Absolute Lymphocytes 0.3 10^3/uL (1.2-3.4); Absolute Monocytes 0.3 10^3/uL (0.1-0.6); Absolute Neutrophils 5.4 10^3/uL (1.4-6.5); Nucleated Red Blood Cells % 0 % (-)
--- NOTE | 2025-02-03 04:03 | PTCARENOTE ---
sys reviewed, changes noted
[2025-02-03] MEDS: ATIVAN 1 MG IV ×3 (04:34→23:21)
--- NOTE | 2025-02-03 04:35 | PTCARENOTE ---
ativan 1mg iv givwen at pt request
[2025-02-03] MEDS: VANCOCIN 150 IV ×2 (05:04→17:38)
--- NOTE | 2025-02-03 05:54 | PTCARENOTE ---
martin aguila'd per order, #25 cc applied
--- NOTE | 2025-02-03 07:44 | W.PN.HOSP.TC ---
Addendum entered and electronically signed by Nannette Mccord MD, Resident 02/03/25 17:43:
Spoke to ICU resident, and ICU team. Patient's tranexamic acid was discontinued yesterday p.m. For some reason the orders were not dropped in the morning today. So there was some confusion in terms of patient receiving tranexamic acid today.
Also touch based with ENT who recommended holding off on tranexamic acid to see if the patient rebleeds versus continuing patient on a low-dose tranexamic acid as prophylaxis for bleeding prevention from the tumor. Currently patient not on
tranexamic acid. Will review TXA in the a.m. tomorrow again.
Original Note:
Today's Communication/Plan
-
Consult ID for management.
Continue tranexamic acid.
Continue vancomycin and cefepime for now.
Delirium precautions per
Assessment / Plan
Assessment / Plan
Assessment-
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
bleed from the tumor site.
Plan-
Hemoptysis-
Massive, with acute blood loss anemia.
CT PE protocol negative for pulmonary embolism. ENT removed packing on 01/30. No bleeding source identified.
Weaned off of ventilator on 01/31. Currently on trach collar for 12 hours. Plan is to switch the trach collar. SpO2 goal 88 to 94% with underlying COPD.
Chest x-ray shows no evidence of active cardiopulmonary disease, left apical hemithorax is limited in evaluation because of patient's position.
Patient placed with ENT who recommends continuing tranexamic acid given his tumor site bleeding
Continues to remain on tranexamic acid and [place] to reduce the clot burden.
Avoid any form of anticoagulation.
Appreciate ENT, and gse mechanic inputs.
Brief episode of acute delirium-
Sundowning versus ICU induced delirium, single episode
Self resolved spontaneously.
Delirium precautions, use restraints with caution
Haldol as needed.
Acute blood loss anemia-
Hemoglobin 8.5 upon arrival, s/p 1 unit of blood transfusion.
Serial H&H's, and monitor for any acute blood loss
Transfusion if Hb less than 8.5
Currently hemoglobin remained stable.
Pulmonary nodule-6 mm, emphysema-as noted on CAT scan
Unclear if patient has a diagnosis of COPD.
73-[id number] of smoking history recently quit smoking about 2 months ago after diagnosis of basal cell tongue cancer.
Tour Consultant recommends outpatient follow-up for COPD evaluation.
History of squamous cell carcinoma, oral cavity-s/p chemoradiation.
[facility]
Patient's family also wants a close ENT follow-up within the [facility] along with you pending ENT.
Will provide local ENT referral.
Fever
Possibly inflammatory secondary to malignancy versus hypercoagulability versus infection from aspiration.
Trach secretions positive for Pseudomonas and Staph aureus. Staph aureus sensitivity pending.
Urine cultures positive for Enterococcus species, sensitive only to vancomycin and Unasyn.
Will consult ID for further management. Last recorded temperature spike was 101 on 02/02 in the evening yesterday.
Chest x-ray-no significant change,
Urine analysis and culture-positive for Enterococcus species, tracheal aspirate-positive for Pseudomonas species,
Blood cultures x 2-negative. Flu and COVID testing-negative.
Currently patient on IV Unasyn-day 3 today (started on 02/01).
Hypokalemia-
Resolved. Trend potassium levels
Replete as needed.
Hypomagnesemia-
Resolved. Trend magnesium levels.
Replete as needed.
Tracheostomy tube -
Previously on trocar 8, changes to cannula twice a day.
Currently on Shiley 6.0, ENT plans to change back to trocar 8 at the time of discharge.
GI prophylaxis-
Lansoprazole
Chronic pain syndrome-opioid dependence-
Continue home medication regimen
On 135 MME per day.
Cachexia-
Secondary to malignancy.
BMI at 18.1. currently on Jevity 1.5, 3 times a day.
DVT prophylaxis-sequential compression device
CODE STATUS-
Limited DNR.
Anticipated Discharge: > 48 hours
Subjective/Interval History
-
Date of Service: February 03, 2025
Patient had an episode of agitation in the evening yesterday, suspected to be ?.
Currently patient is sleeping and is connected to ventilator preemptively.
Will be weaned off and switch to trach collar in the morning when he wakes up. Patient not awake on bedside when I rounded in the a.m. today.
Objective Data
-
Labs:
Laboratory Results
02/03/25
03:20
WBC 6.0
Hgb 8.7 L
Hct 26.1 L
Plt Count 248
Sodium 136
Potassium 3.7
Chloride 102
Carbon Dioxide 31 H
BUN 24 H
Creatinine 0.5 L
Glucose 151 H
Calcium 7.9 L
Total Bilirubin 0.5
AST 14 L
ALT 12
Alkaline Phosphatase 74
Vital Signs:
Vital Signs
Temp Pulse Resp BP Pulse Ox
98.9 F 84 19 108/71 96
02/03/25 03:08 02/03/25 06:00 02/03/25 06:00 02/03/25 06:00 02/03/25 06:00
I&O
02/02/25 02/03/25 02/04/25
06:59 06:59 06:59
Intake Total 1530 / 1600 2680 / 2680
Output Total 2175 / 2175 2345 / 2345
Balance -645 / -575 335 / 335
Review of Systems
-
Unable to obtain full review of systems at this time due to: Acuity and Patient Intubation
Physical Exam
-
General: No Apparent Distress and Comfortable
HEENT: Moist Mucous Membranes
Respiratory: Crackles (More prominent in the upper lobes compared to lower lobes.) and Other (Tracheostomy tube in place, connected to ventilator at the time of physical exam.); Negative Clear to Auscultation, Wheezes, Rales or Rhonchi
Cardiac: Regular Rhythm and S1/S2; Negative Murmur, Rub or Gallop
GI: Soft, Nontender, Nondistended, Normal Bowel Sounds and Peg Tube (Connected to Jevity tube feed. No erythema, edema or discharge. No local rise of temperature.)
Musculoskeletal: No Clubbing, No Cyanosis and No Edema
Skin: Warm
Neuro: No Motor Deficits; Negative AO x 3
Psych: Calm
Data Reviewed
-
Medical Tests (Nuc Med, Echo etc): Image personally visualized and interpreted and Report Reviewed by me
Labs: Labs Reviewed by me and Discussed with Physician
[2025-02-03] MEDS: MIRALAX 17 GRAMS TUBE (08:04)
[2025-02-03] MEDS: PREVACID 30 MG TUBE (08:05)
[2025-02-03] MEDS: DELTASONE 30 MG TUBE (08:05)
[2025-02-03] MEDS: ATIVAN 0.5 MG TUBE (08:05)
[2025-02-03] MEDS: ROBITUSSIN 200 MG TUBE ×4 (08:05→21:32)
[2025-02-03] MEDS: LIDOCAINE 4% PATCH TOPICAL ×2 (08:06→16:03)
--- NOTE | 2025-02-03 08:12 | W.PN.INTV ---
Today's Communication / Plan
Recommendations
Continue cefepime + IV vancomycin for Pseudomonas aeruginosa pneumonia with culture now growing Staphylococcus aureus (follow-up sensitivities)
Continue with IV vancomycin also for Enterococcus faecalis UTI
Follow-up blood culture
Continue trach collar today with blood gas later today � if patient is stable on trach collar then would continue trach collar throughout the night as long as he is stable with work of breathing and SpO2 >90%
Place back onto mechanical ventilation on CPAP: 5 if he is not tolerating trach collar tonight
Once he can tolerate trach collar for >24 hours, then will replace his current 6.0 trach to his home Portex 8.0 that he wears at home and do Passy-Smackover valve trial
Guarded prognosis � goals of care discussion warranted; seems hospice appropriate especially if patient too ill to resume chemotherapy - defer this conversation to oncology although I will continue to have discussions regarding other medical issues
including goals of care with the as the patient said he wanted to 'go home today'
Continue ICU level care for this critically ill patient
Assessment
-
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 Patient at baseline has a known cough to
tracheostomy tube. Reportedly bleeding developed the night before and patient was bringing up blood per mouth, no bleeding from the tracheostomy site however. Patient also has a diagnosis of prostate cancer s/p radiation and TURP. Patient has
received chemotherapy for the oropharyngeal cancer and follows with the [facility].
In the emergency room patient had a CT PE which was negative for any pulmonary embolism. Subsequently patient had the tracheostomy tube changed to a cuffed Shiley 6.0 and patient was connected to mechanical ventilation. ENT service evaluated the
patient and placed gauze packing. Subsequently a CT angiogram of neck was performed which was negative for an ongoing extravasation. Emergency room physician contacted [facility] and no further therapies were suggested. Patient is
being admitted to the ICU for further management and commercial illustrator service was consulted for further input.
#1. Hemoptysis - now resolved s/p packing via ENT + nebulized TXA Suspect this was originating from upper airway likely the tumor bed. S/p packing by ENT service 01/29, packing removed 01/30.
- Packing removed 01/30, no further bleeding noted. ENT service on case.
- Serial H&H stable.
- Avoid antiplatelets and anticoagulants for now
- Clotted dark blood noted in nares, started prn [place] to help clear nasal passage
- Last day of nebulized TXA on 02/02 --> may need to be resumed if recommended by ENT or if hemoptysis recurs
#2. Acute respiratory failure, at baseline s/p tracheostomy on trach collar.
- Patient at baseline wears a cough flex Portex 8.0 tracheostomy tube with trach collar. In view of hemoptysis, he was switched to Shiley 6.0 cuffed tracheostomy tube and was placed on mechanical ventilation.
- 01/31, patient was weaned to pressure support and then subsequently to trach collar all day. He started to get tired towards the end of the day and was switched back to mechanical ventilation. on AM of 02/01, he was back on pressure support 5 x 5
- As of 02/02, tolerating trach collar after being on pressure support via vent overnight
- He did get very agitated on the evening of 02/02, likely due to ing with acute delirium, and was placed back onto the ventilator. He's back on trach collar as of the morning of 02/03
- Continue with trach collar and monitor respiratory status, SpO2 and work of breathing, and as long as he is saturating >90% and not in respiratory distress would keep on trach collar for as long as possible, ideally throughout the night with goal
of doing Passy-Smackover valve tomorrow (02/04)
- Placed back onto the ventilator on pressure support with PS: 5, CPAP: 5 if he does become tachypneic tonight
- Check blood gas later tonight at 2030 to assure that he is not retaining CO2; continue to trend blood gas to assure pH + pCO2 remained stable
- Once tolerating trach collar for 24 hours, will need to switch to cuffless Portex 8.0. Patient's has brought that particular tube and it is at bedside
- Patient is on prednisone as an outpatient, likely to reduce swelling from his head and neck cancer - resumes prednisone on 02/02 with slow taper (appears he has been on prednisone 30 mg prescribed him in mid December 2024, and prior to that was on 20
mg daily the month prior, as per pharmacist review of his outpatient medical records during rounds on 02/02)
#3. Fever -due to Pseudomonas pneumonia
- His secretions coming out of his tracheostomy site are foul-smelling and it is positive for hamilton-sensitive Pseudomonas aeruginosa + Staph aureus (sensitivities pending)
- He was started on cefepime on 02/01 which he should be continued on for at least 7 days
- Follow-up blood cultures collected 02/01/2025 which shows NGTD
- Of note, urine culture also positive for Enterococcus faecalis --> given his penicillin allergy, continue vancomycin for now. If Staphylococcus aureus found to be MSSA, then we will consider trial of ampicillin to see if patient has an allergic
reaction - for now, continue with cefepime + IV vancomycin
#4. Emphysema with 6 mm lung nodule.
- Reported significant secretions at baseline, ?Chronic bronchitis.
- Extensive smoking history and emphysema on imaging. Suspect underlying COPD
- Continue Duoneb but changed from scheduled QID to q4hr prn given tachycardia this morning, and also add on a prn nebulized 3% if needed for secretions
- Continue Scopolamine patch which is a home med --> if secretions continue to be thick then we will need to remove this patch
- Depending on patient's clinical course, will need further workup including PFTs and serial CT surveillance as outpatient
#5. History of squamous cell carcinoma, tongue, status post chemotherapy and radiation.
- Patient is s/p tracheostomy as well as PEG tube
- Follows up [facility] --> oncology consulted on 02/02
- Patient was scheduled to start a second line chemotherapy on 01/29 - was sent to emergency room for hemoptysis
#4. H/O Smoking, more then 40 pack year smoking history
-Patient quit in 05/2024
Continue lansoprazole for GI prophylaxis
SCDs for DVT prophylaxis
Guarded prognosis � goals of care discussion warranted here. wants the patient to continue with medical treatment to get better so that she he can resume treatment for his tongue SCC
Continue ICU level care for this critically ill patient
Critical care statement: A total of 41 minutes of critical care time was provided for this patient today. This includes management of unstable vital signs, evaluation of the patient at bedside, reviewing the patient's pertinent medical records
including radiographs, microbiology, laboratory evaluations, and discussion with primary team, consultants, pharmacy, nutrition, physical therapy, case management, charge nurse, critical care nursing, and respiratory therapy.
Data:
CTA Neck: 01/2025: 1. New 1.8 cm irregular shaped air-filled cavity in the right side of the oropharynx which could be secondary to interval surgical resection of tongue carcinoma or tumor necrosis.
2. Irregular shaped regions of enhancing soft tissue in the left oropharynx and posterior right oropharynx and department store salesperson space. Diagnostic possibilities are (1) tumor infiltration or (2) post therapy edema.
3. 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
4. Tracheostomy tube in place.
5. Moderate bilateral upper lobe emphysema.
6. 6 mm solid pulmonary nodule in the right upper lobe which could be a pulmonary metastasis or infectious/inflammatory pulmonary nodule.
7. Severe multilevel cervical discogenic degenerative disease with multilevel disc-osteophyte complexes causing mild spinal cord compression and central canal stenosis.
8. Less than 50% diameter stenosis in both internal carotid arteries.
CT-PE 01/2025: No evidence of central pulmonary embolism.
Changes of emphysema again seen. No findings in the lung parenchyma bilaterally to suggest hemorrhage.
Mild pericardial thickening versus tiny pericardial effusion, decreased.
Small portion of the included abdomen significantly obscured by beam hardening artifact from the patient's bilateral upper extremities. At least one small left renal cyst.
ECHO 04/2024: Normal left ventricular size, wall thickness and systolic function. No regional
wall motion abnormalities are seen. LV ejection fraction is 60-65% by Coto's
method of discs. Normal diastolic function.
Normal right ventricular size and function.
Trace tricuspid regurgitation. Estimated pulmonary artery pressure of 20-25
mmHg, assuming a right atrial pressure of 3 mmHg.
No significant valvular disease.
No prior study available for comparison.
Subjective Dataa
Subjective Data
Date of Service:
Date of Service: February 03, 2025
Chief Complaint: Corporate Development Officer Follow Up
Subjective:
Patient seen and evaluated this morning. Got very agitated last night and hypoxic --> placed back onto the vent on 5/5 30% FiO2. Taken off vent this AM. Still having foul smelling secretions from trach. This AM, vitals showed: HR 106, BP 118/70,
SpO2 94% on trach collar via FiO2 30%. Still no hemoptysis overnight or this AM. He told the nurse that he wants to go home. He appears to have capacity to make his own decisions.
Review of Systems
General: Other (Negative unless mentioned above)
Objective Data
Data Reviewed
Vital Signs / I&O / Oxygen:
Vital Signs
Temp Pulse Resp BP Pulse Ox
99.2 F 82 18 108/69 96
02/03/25 08:00 02/03/25 10:00 02/03/25 10:00 02/03/25 10:00 02/03/25 10:00
Intake and Output
02/02/25 02/03/25 02/04/25
06:59 06:59 06:59
Intake Total 1530 / 1600 2680 / 2760 420 / 420
Output Total 2175 / 2175 2345 / 2345
Balance -645 / -575 335 / 415 420 / 420
SaO2 [CPAP/PSV] 97
SaO2 [A/C] 95
SaO2 96
Physical Exam
General: Respiratory Distress (negative), Comfortable, Chills (negative) and Sweats (negative)
HEENT: Normocephalic and Other (+trach in place with thick, foul smelling mucous coming out)
Cardiovascular: S1-S2, Rub (negative) and Peripheral Edema (negative)
Respiratory: Wheeze (negative), Crackles (Bilaterally mainly in the upper lung [place]), Rhonchi (negative), Non-Labored Respirations and Stridor (negative)
GI: Soft, Non Distended, Non Tender and Normal Bowel Sounds
Neurology: Awake, Alert and Tremors (negative)
Skin: Warm, Dry, Cyanosis (negative) and Jaundice (negative)
Labs/Micro/Reports
Lab Data
02/03/25 03:20
02/03/25 03:20
Microbiology
02/01/25 09:58 Urine Urine Culture - Preliminary
Enterococcus faecalis
02/01/25 18:43 Blood/Venous Blood Culture - Preliminary
No Growth in 24 hours- Final report to follow
02/01/25 13:10 Tracheal Aspirate Respiratory Culture - Preliminary
Pseudomonas aeruginosa
Staphylococcus aureus
02/01/25 13:10 Tracheal Aspirate Gram Stain - Preliminary
02/01/25 13:21 Blood/Venous Blood Culture - Preliminary
No Growth in 24 hours- Final report to follow
02/01/25 13:23 Nasal Swab Influenza Types A & B (ROMMEL) - Final
Negative for Influenza A & B, NAAT
Negative results must be combined with clinical observations
and patient history.
Nucleic Acid Amplification test (NAAT)performed on the
[employer] platform.
--- NOTE | 2025-02-03 08:53 | PTCARENOTE ---
Assumed care of patient. Pt rec'd sleeping, drowsy but arousable. Nods head and follows commands. SR on monitor. Weak PP. No edema. Knee hi SCD's on. #6 cuffed shiley trach, vent settings: CPAP 5/PSV 5/30%, sats 97%. Lungs scattered rhonchi.
Suctioned orally and via trach for thick foul smelling parnell secretions. Trach ties clean. Abdomen round, +hypo BS. Peg tube noted. Site reddened, optifoam in place. Jevity 1.5 @ 55ml/hr w/ 25ml/hr H2O flushes, prosource given. Wells removed at
0600, DTV at 1200. Skin pale in color. Sacrum intact, repositioned q2h. (R) SQ port. LFA 20P. VS documented. Call fall within reach.
--- NOTE | 2025-02-03 09:15 | W.PN.ONC2 ---
Today's Communication / Plan
-
.
Impression
Impression
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
ABLA from tumor s/p 1 UPRBC 5/8, Hgb 8.7g/dL today
Fever, not neutropenic
PEG
Trach
chronic pain, on chronic opioids
malnutrition
Plan
Plan
abx per primary service, follow cultures, f/u CT chest
on tranexamic acid 1000mg daily
GOC discussed with at bedside on 02/03, currently goals remain restorative, she would like to take 1 day at a time
OP treatment initiation of cycle 1 pembro, carbo, taxol with pegfilgrastim will be rescheduled dependent on hospital outcomes
OP follow up with Dr. Galvan will be arranged upon discharge
Subjective/Objective
Subjective
no new complaints, remains frustrated with limited abiltity to communicate
Vital Signs:
Vital Signs
Temp Pulse Resp BP Pulse Ox
99.2 F 85 23 107/70 97
02/03/25 08:00 02/03/25 08:00 02/03/25 08:00 02/03/25 08:00 02/03/25 08:00
Lab Results:
Laboratory Data
WBC 6.0 10^3/uL (4.8-10.8) 02/03/25 03:20
Hgb 8.7 g/dL (13.0-18.0) L 02/03/25 03:20
Plt Count 248 10^3/uL (130-400) 02/03/25 03:20
PT 15.3 Sec (11.4-14.6) H 01/29/25 16:44
INR 1.16 01/29/25 16:44
APTT 25.4 Sec (23.4-35.0) 01/29/25 16:44
eGFR > 60.00 02/03/25 03:20
Physical Exam
General: Appears Chronically Ill and Other (trach)
HEENT: Moist Mucous Membranes; Negative Jaundice
Cardiology: Normal Sinus Rhythm
Pulmonary: Clear
GI: Soft and Other (PEG)
Extremities: Pulses Present; Negative Edema
Skin: Warm
--- NOTE | 2025-02-03 10:34 | PTCARENOTE ---
Pt changed to trach collar 28% with SpO2 95%.
--- NOTE | 2025-02-03 10:41 | PN.CDI ---
CDI
- -
CDI:
Physician Documentation Request
Admit Date: 01/29/25 15:02
Dear Doctor Radha,
Patient admitted for hemoptysis.
02/02 Hospitalist PN: 'Severe protein calorie malnutrition
We are like to check thick and appears chronically ill possibly secondary to the cancerous process
Feeds through the gastrostomy tube
Continue on Jevity 1.5 with Prosource 3 times daily'
The request is for one of the following:
- Additional documentation to support the condition. Indicate if this is in lieu of what may be considered standard criteria, and/or support why the standard criteria may not be present for this patient.
- A more appropriate diagnosis, reflecting the patient's condition
- Severe PCM remains a known or suspected condition for this patient and is further supported by (include additional documentation in the medical record)
- Severe PCM has been ruled out and a more appropriate diagnosis for this patient's condition is .
- Other (please specify)
[place] Criteria ([facility] Hospitalist 2017)
2 or more criteria must be present for either
non severe or severe malnutrition
Note that the criteria differs related to the
presence of an acute or chronic illness
Acute Illness Chronic Illness
Energy Intake Non Severe: <75% for >7 days Non Severe: <75% for >1 month
Severe: <50% for >5 days Severe: <75% for >1 month
Weight Loss Non Severe: 1-2% over 1 week Non Severe: 5% over 1 month
5% over 1 month 7.5% over 3 months
7.5% over 3 months 10% over 6 months
1 year N/A 20% over 1 year
Severe: >2% over 1 week Severe: >5% over 1 month
>5% over 1 month >7.5% over 3 months
>7.5% over 3 months >10% over 6 months
1 year N/A >20% over 1 year
Body Fat Non Severe: Mild Decrease Non Severe: Mild Loss
Severe: Moderate Decrease Severe: Severe Loss
Muscle Mass Non Severe: Mild Decrease Non Severe: Mild Loss
Severe: Moderate Decrease Severe: Severe Loss
Fluid Accumulation Non Severe: Mild Accumulation Non Severe: Mild Accumulation
Severe: Moderate to severe Severe: Moderate to severe
accumulation accumulation
Reduced Certified Hyperbaric Technician Strength Non Severe: N/A Non Severe: N/A
Severe: Measurably reduced Severe: Measurably reduced
Additional criteria that can be used to Determine if Mild or Moderate Malnutrition (Merck Manual 2018)
Mild Moderate Severe
Albumin gm/dl <3.0 gm/dl <2.5 gm/dl <2.0 gm/dl
Pre Albumin mg/dl <15 gm/dl <10 mg/dl <5.0 mg/dl
BMI <18.5 <17 <16
Use of terms such as suspected, likely, concern for, or probable (associated with a specific diagnosis that is being evaluated, monitored, or treated as if it exists) are acceptable and can be coded in the inpatient setting, when documented at the
time of discharge.
Thank you,
Lilliam Nolan RN, BSN
CDI Specialist
Available via [employer] text
Please use your independent medical judgment in providing your response.
--- NOTE | 2025-02-03 11:50 | PHA.VAN.FU ---
Vancomycin Assessment / Plan
- Assessment
Renal Function: Stable
WBC's are: WNL
In the past 24 hrs, patient has been: Afebrile
Concomitant Antimicrobials: cefepime
- Dosing Plan
Continue: Vanc 750mg Q12H
- Monitoring Plan
No level(s) ordered at this time: consider levels in next few days
- Follow Up
Pharmacy will continue to follow.
Vancomycin Follow UP
- -
Patient Age: 69
Patient Sex: Male
Vancomycin Day #: 2
Indication: Genito-Urinary Tract
Requesting Provider: Ronni
Pertinent Antimicrobial Allergies:
penicillins - rash
Height / Weight:
Height 5 ft 9 in
Actual Weight 55.6 kg
IBW in k.7
Pertinent Past Medical History: BMI ~18, Squamous cell carcinoma of tongue (Trach/PEG)
- Vital Signs / Lab Results
Temp Pulse Resp BP Pulse Ox
99.2 F 92 23 118/70 95
02/03/25 08:00 02/03/25 11:00 02/03/25 11:00 02/03/25 11:00 02/03/25 11:00
Lab Results - Hematology
02/01/25 02/02/25 02/03/25
03:14 03:11 03:20
WBC 7.1 6.0 6.0
Band Neutrophils 17 H 35 H D
Lab Results - Chemistry
02/01/25 02/02/25 02/03/25
03:14 03:11 03:20
BUN 14 15 24 H
Creatinine 0.4 L 0.4 L 0.5 L
Estimated Creat Clear 98 98 96
Albumin 2.5 L
Microbiology Results
02/01/25 09:58 Urine Culture - Preliminary
Urine Enterococcus faecalis
02/01/25 18:43 Blood Culture - Preliminary
Blood/Venous No Growth in 24 hours- Final report to follow
02/01/25 13:10 Respiratory Culture - Preliminary
Tracheal Aspirate Pseudomonas aeruginosa
Staphylococcus aureus
Gram Stain - Preliminary
02/01/25 13:21 Blood Culture - Preliminary
Blood/Venous No Growth in 24 hours- Final report to follow
02/01/25 13:23 Influenza Types A & B (ROMMEL) - Final
Nasal Swab Negative for Influenza A & B, NAAT
Negative results must be combined with clinical observations
and patient history.
Nucleic Acid Amplification test (NAAT)performed on the
[employer] platform.
--- NOTE | 2025-02-03 13:18 | PTCARENOTE ---
Pt assisted OOB to chair. Unable to hold weight without max assistance. Small BM during movement. Pt mouthing 'I want to go home' over and over. Microfilm Camera Operator notified. Assessment unchanged.
--- NOTE | 2025-02-03 14:13 | W.PN.UPDATE ---
Update Note
Progress Note Update
Imaging and case reviewed with Dr. Farias -could consider RT BID x 2 days to help control bleeding after discharge
Updates provided to at bedside and primary team resident
--- NOTE | 2025-02-03 14:24 | PTCARENOTE ---
Pt stated urge to void. Unable to void. Straight cath 450cc marlen urine with blood tinged as bladder fully emptied.
--- NOTE | 2025-02-03 16:08 | PTCARENOTE ---
Pt returned to bed with 2 person max assist. required multiple trach suctioning for thick parnell secretions. at bedside and plan of care discussed.
--- NOTE | 2025-02-03 20:00 | PTCARENOTE ---
Rec'd pt restin in bed, dtr at bedside, dtr concerned that pt seems confused, pt following commands, gets agitated when suctioned or trach care given, support ST lenny, bp stable,weak distal pulses, skin warm/dry, # 6 shiley trach to 28% trach
collar, sat 97, resp easy, coughing up lg amts parnell secretions, hypo bowel sounds, peg- rec jevity 1.5 at 55/hr & 25ml/hr h20 flush, no n/v,bladder scanned for 400ml, str cathed for 350 ml marlen urine w/ blood tinge
[2025-02-03] MEDS: DESYREL 50 MG TUBE (21:32)
--- NOTE | 2025-02-03 21:32 | PTCARENOTE ---
trazadone 50mg po given for sleep
--- NOTE | 2025-02-03 23:20 | PTCARENOTE ---
suct for large amts thick parnell, while attempting to do trach care pt trying to punch and get oob, ativan 1mg iv given, trach care done
[2025-02-04] VITALS (21 sets, daily range): BP systolic 107–185; BP diastolic 70–99; PULSE 98–107; O2SAT 94–97; BMI 18.3
--- NOTE | 2025-02-04 00:05 | PTCARENOTE ---
sys reviewed, inc lg amt urine, CHG bath done, linens changed, # 25 condom cath applied
[2025-02-04] MEDS: STERILE WATER FOR INJECTION 10 ML IV ×3 (03:23→19:39)
[2025-02-04] MEDS: MAXIPIME 2000 MG IV ×3 (03:23→19:39)
[2025-02-04 03:37] LABS: Hematocrit 26.3 % (39.0-52.0); Hemoglobin 8.8 g/dL (13.0-18.0); Mean Corp Hgb Conc. 33.5 g/dL (33.0-37.0); Mean Corpuscular Hgb 30.6 pg (27.0-31.0); Mean Corpuscular Volume 91.3 fL (80.0-94.0); Platelet Count 274 10^3/uL (130-400); Red Blood Cell Count 2.88 10^6/uL (4.70-6.10); Red Cell Dist. Width 13.5 % (11.5-14.5); White Blood Cell Count 6.1 10^3/uL (4.8-10.8)
[2025-02-04] MEDS: ROXICODONE 15 MG TUBE ×6 (03:46→23:44)
--- NOTE | 2025-02-04 04:01 | PTCARENOTE ---
sys reviewed, resting comf
[2025-02-04 04:11] LABS: Blood Urea Nitrogen 24 mg/dl (9-20); Calcium 8.1 mg/dl (8.4-10.2); Carbon Dioxide 30 mmol/L (22-30); Chloride 99 mmol/L (98-107); Estimated Creatinine Clearance 95 ml/min; Glucose 121 mg/dl (70-99); Potassium 3.6 mmol/L (3.5-5.1); Sodium 136 mmol/L (135-145); Triglycerides 74 mg/dl (10-149); eGFR > 60.00
[2025-02-04] MEDS: VANCOCIN 150 IV ×2 (05:06→17:09)
--- NOTE | 2025-02-04 07:31 | W.PN.HOSP.TC ---
Today's Communication/Plan
-
Continue IV vancomycin and cefepime.
Pending Staph aureus sensitivities.
Monitor for bleeding.
S/p trach collar for 24 hours.
Assessment / Plan
Assessment / Plan
Assessment-
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
bleed from the tumor site.
Plan-
Hemoptysis-
Massive, with acute blood loss anemia.
CT PE protocol negative for pulmonary embolism. ENT removed packing on 01/30. No bleeding source identified.
Weaned off of ventilator on 01/31. Through 01/31 to 02/02-patient tolerated intervals of trach collar for 8 to 12 hours.
S/p 24 hours on trach collar without mechanical ventilation. SpO2 goal 88 to 94% with underlying COPD.
Chest x-ray shows no evidence of active cardiopulmonary disease, left apical hemithorax is limited in evaluation because of patient's position.
S/p discontinuation of tranexamic acid x 2 days. Last dose of TXA on 02/02 at 2 PM.
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 Reviewed with my supervising provider Dr. Hairston.
[place] to reduce the clot burden.
Avoid any form of anticoagulation.
Appreciate ENT, and authorization rep inputs.
Brief episode of acute delirium-
Sundowning versus ICU induced delirium, single episode
Self resolved spontaneously.
Delirium precautions, use restraints with caution
No further delirium episodes.
Acute blood loss anemia-
Hemoglobin 8.5 upon arrival, s/p 1 unit of blood transfusion.
Serial H&H's, and monitor for any acute blood loss
Transfusion if Hb less than 8.5
Currently hemoglobin remained stable.
Pulmonary nodule-6 mm, emphysema-as noted on CAT scan
Unclear if patient has a diagnosis of COPD.
89-honp-swyq of smoking history recently quit smoking about 2 months ago after diagnosis of basal cell tongue cancer.
Sales Management Intern recommends outpatient follow-up for COPD evaluation.
History of squamous cell carcinoma, oral cavity-s/p chemoradiation.
[facility]
Patient's family also wants a close ENT follow-up within the [facility] system along with you pending ENT.
Will provide local ENT referral.
Fever
Possibly inflammatory secondary to malignancy versus hypercoagulability versus infection from aspiration.
Trach secretions positive for Pseudomonas and Staph aureus. Staph aureus sensitivity pending.
Urine cultures positive for Enterococcus species, sensitive only to vancomycin and Unasyn.
Will consult ID for further management. Last recorded temperature spike was 101 on 02/02 in the evening yesterday.
Chest x-ray-no significant change,
Urine analysis and culture-positive for Enterococcus species, tracheal aspirate-positive for Pseudomonas species,
Blood cultures x 2-negative. Flu and COVID testing-negative.
Currently patient on IV Unasyn-day 3 today (started on 02/01).
Hypokalemia-
Resolved. Trend potassium levels
Replete as needed.
Hypomagnesemia-
Resolved. Trend magnesium levels.
Replete as needed.
Tracheostomy tube -
Previously on trocar 8, changes to cannula twice a day.
Currently on Shiley 6.0, ENT plans to change back to trocar 8 at the time of discharge.
GI prophylaxis-
Lansoprazole
Chronic pain syndrome-opioid dependence-
Continue home medication regimen
On 135 MME per day.
Cachexia-
Secondary to malignancy.
BMI at 18.1. currently on Jevity 1.5, 3 times a day.
DVT prophylaxis-sequential compression device
CODE STATUS-
Limited DNR.
Anticipated Discharge: > 48 hours
Subjective/Interval History
-
Date of Service: February 04, 2025
Patient states that he is thirsty but denies all other complaints.
He is able to nod his head yes or no for complaints.
Remains on trach collar for 24 hours now.
Objective Data
-
Labs:
Laboratory Results
02/04/25
03:21
WBC 6.1
Hgb 8.8 L
Hct 26.3 L
Plt Count 274
Sodium 136
Potassium 3.6
Chloride 99
Carbon Dioxide 30
BUN 24 H
Creatinine 0.4 L
Glucose 121 H
Calcium 8.1 L
Vital Signs:
Vital Signs
Temp Pulse Resp BP Pulse Ox
99.9 F 80 18 117/71 99
02/04/25 03:13 02/04/25 06:00 02/04/25 06:00 02/04/25 06:00 02/04/25 06:00
I&O
02/03/25 02/04/25 02/05/25
06:59 06:59 06:59
Intake Total 2680 / 2760 2310 / 2310
Output Total 2345 / 2345 850 / 850
Balance 335 / 415 1460 / 1460
Review of Systems
-
History Source: Patient
Constitutional: Reports No Symptoms
Respiratory: Reports No Symptoms
Cardiac: Reports No Symptoms
Abdomen/GI: Reports No Symptoms
Genitourinary: Reports No Symptoms
Musculoskeletal: Reports No Symptoms
Neuro: Reports No Symptoms
Endocrine: Reports No Symptoms
Hematologic / Lymphatic: Reports No Symptoms
Physical Exam
-
General: Comfortable and Cachectic; Negative Respiratory Distress
HEENT: Moist Mucous Membranes, Tracheostomy Collar and [place] Conjunctivae
Respiratory: Crackles (In bilateral upper lobes.) and Decreased Breath Sounds (In bilateral lower lobes.); Negative Clear to Auscultation, Wheezes, Rales or Rhonchi
Cardiac: Regular Rhythm and S1/S2; Negative Murmur, Rub or Gallop
GI: Soft, Nontender, Nondistended and Normal Bowel Sounds
Genito-urinary: No Costovertebral Tender
Musculoskeletal: No Clubbing, No Cyanosis and No Edema
Skin: Warm
Neuro: AO x 3 and No Motor Deficits
Psych: Calm
--- NOTE | 2025-02-04 08:10 | PTCARENOTE ---
Assumed care of patient. Nods head and follows commands. Attempting to get out of bed, reoriented and pt indicated that he needed to have BM. Already incontinent small amt stool. SR on monitor. Weak PP. No edema. Knee hi SCD's on, removed at pt
request. #6 cuffed shiley trach, on trach collar 28% FiO2, sats 97%. Lungs scattered rhonchi. Suctioned orally and via trach for thick foul smelling parnell secretions. Trach ties clean. Abdomen round, +hypo BS. Peg tube noted. Site reddened,
optifoam in place. Jevity 1.5 @ 55ml/hr w/ 25ml/hr H2O flushes, prosource given. Condom cath in place. Skin pale in color. Sacrum intact, repositioned q2h. (R) SQ port. LFA 20P. VS documented. Call fall within reach.
[2025-02-04] MEDS: ROBITUSSIN 200 MG TUBE ×4 (08:12→22:27)
[2025-02-04] MEDS: MIRALAX 17 GRAMS TUBE (08:12)
[2025-02-04] MEDS: ATIVAN 0.5 MG TUBE (08:13)
[2025-02-04] MEDS: DELTASONE 30 MG TUBE (08:13)
[2025-02-04] MEDS: PREVACID 30 MG TUBE (08:13)
[2025-02-04] MEDS: LIDOCAINE 4% PATCH TOPICAL (08:13)
--- NOTE | 2025-02-04 09:20 | W.PN.INTV ---
Today's Communication / Plan
Recommendations
Discontinue scopolamine patch
Continue antibiotics
Continue suction
Continue supportive measures
Initiate speaking valve
Continue furthering goals of care discussion with family and patient
Assessment
-
Assessment:
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 Reportedly
patient was in the infusion center about to receive a cycle of chemotherapy when he developed hemoptysis and was subsequently sent to emergency department. Reportedly bleeding developed the night before and patient was bringing up blood per mouth,
no bleeding from the tracheostomy. Patient also has a diagnosis of prostate cancer s/p radiation and TURP. Patient reportedly follows oncology at [facility].
Plan:
#Hemoptysis
Resolved
Status post packing via ENT and nebulized TXA
Suspect originating from tumor bed in upper airway
ENT following, bleeding has resolved. ENT recommended doing nothing, or initiating low-dose TXA. Will defer to primary team
If patient is stable for be discharge, radiation oncology can consider giving BID radiation for 2 days to ideally control bleeding
Continue daily CBC to monitor hemoglobin
Avoid antiplatelets and anticoagulation
#Acute respiratory failure
Currently at baseline s/p tracheostomy on trach collar.
at baseline wears a cough flex Portex 8.0 tracheostomy tube with trach collar. In view of hemoptysis, he was switched to Shiley 6.0 cuffed tracheostomy tube and was placed on mechanical ventilation.
Have been alternating between pressure support and mechanical ventilation during his stay. Currently he is not requiring mechanical ventilation
Takes prednisone as outpatient, likely from chemo and/or to reduce swelling from his head neck cancer
Resume prednisone with slow taper
Continue supportive measures
Continue suction
#Fever
Resolved
Likely secondary to Pseudomonas pneumonia and/or Enterococcus UTI
Currently receiving IV cefepime and IV vancomycin
Foul-smelling secretions, thick still produced from tracheostomy site
Sputum positive for pansensitive Pseudomonas and Staph aureus�sensitivities pending
Enterococcus sensitive to vancomycin and ampicillin
If Staph aureus sensitivities return sensitive to ampicillin, will discontinue vancomycin initiate ampicillin
Blood cultures no growth to date
Continue current antibiotics until sensitivities return
#Squamous cell carcinoma, base of tongue
#Goals of care discussion
High risk disease, p16 negative
Per records, patient follows ENT at [facility] and Dr. Galvan for medical oncology
Patient is status post laryngectomy , First cycle of chemotherapy was postponed due to patient requiring hospitalization secondary to hemoptysis
Patient is hospice appropriate, current goals from are to take things 1 day at a time. She endorses still wanting to pursue treatment options
Dr. Galvan is scheduled to round tomorrow, optimistically he will be able further or goals of care discussion regarding hospice/palliative care
Oncology evaluated KPS is 0 and he is not a candidate for any additional chemotherapy at this time
Can consider 4 fractions of twice daily radiation to palliatively prevent future bleeding, if patient is able to be discharged.
Will initiate speaking valve
# Emphysema with 6 mm lung nodule.
Reported significant secretions at baseline
Extensive smoking history and emphysema on imaging�suggestive of underlying COPD
Continue DuoNeb, adjustments for tachycardia as needed
Added on 3% nebulized saline as needed for secretions
Scopolamine patch discontinued as secretions were very thick
Would benefit from PFTs and outpatient workup if feasible in the future
Diet: Tube feeds
DVT prophylaxis: SCDs
CODE STATUS Limited DNR
Subjective Dataa
Subjective Data
Date of Service:
Date of Service: February 04, 2025
Chief Complaint: Tower Control Operator Follow Up
Subjective:
No acute events overnight. Patient still having copious thick foul-smelling secretions from his tracheostomy site.
Review of Systems
General: Other (Status post tracheostomy. Patient nonverbal. Able to participate via head nods and writing on clipboard. Clipboard writing is unfortunately illegible.)
Objective Data
Data Reviewed
Vital Signs / I&O / Oxygen:
Vital Signs
Temp Pulse Resp BP Pulse Ox
98.6 F 80 18 117/71 96
02/04/25 07:51 02/04/25 06:00 02/04/25 06:00 02/04/25 06:00 02/04/25 07:42
Intake and Output
02/03/25 02/04/25 02/05/25
06:59 06:59 06:59
Intake Total 2680 / 2760 2310 / 2310
Output Total 2345 / 2345 850 / 850
Balance 335 / 415 1460 / 1460
SaO2 [CPAP/PSV] 97
SaO2 [A/C] 95
SaO2 96
Physical Exam
General: Respiratory Distress (negative), Comfortable, Chills (negative) and Sweats (negative)
HEENT: Normocephalic and Other (+trach in place with thick, foul smelling mucous coming out)
Cardiovascular: S1-S2, Rub (negative) and Peripheral Edema (negative)
Respiratory: Wheeze (negative), Crackles (Bilaterally mainly in the upper lung [place]), Rhonchi (negative), Non-Labored Respirations and Stridor (negative)
GI: Soft, Non Distended, Non Tender and Normal Bowel Sounds
Neurology: Awake, Alert and Tremors (negative)
Skin: Warm, Dry, Cyanosis (negative) and Jaundice (negative)
Labs/Micro/Reports
Lab Data
02/04/25 03:21
02/04/25 03:21
Microbiology
02/01/25 18:43 Blood/Venous Blood Culture - Preliminary
No Growth in 48 hours- Final report to follow
02/01/25 09:58 Urine Urine Culture - Final
Enterococcus faecalis
Aerococcus Species
02/01/25 13:21 Blood/Venous Blood Culture - Preliminary
No Growth in 48 hours- Final report to follow
02/01/25 13:10 Tracheal Aspirate Respiratory Culture - Preliminary
Pseudomonas aeruginosa
Staphylococcus aureus
02/01/25 13:10 Tracheal Aspirate Gram Stain - Preliminary
02/01/25 13:23 Nasal Swab Influenza Types A & B (ROMMEL) - Final
Negative for Influenza A & B, NAAT
Negative results must be combined with clinical observations
and patient history.
Nucleic Acid Amplification test (NAAT)performed on the
[employer] platform.
--- NOTE | 2025-02-04 10:40 | W.PN.ONC2 ---
Today's Communication / Plan
-
Hospice appropriate. Not eligible for chemotherapy based on poor performance status.
Impression
Impression
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
ABLA from tumor s/p 1 UPRBC 5/8, Hgb 8.7g/dL today
Fever, not neutropenic
PEG
Trach
chronic pain, on chronic opioids
malnutrition
Plan
Plan
GOC discussed with at bedside on 02/03, currently goals remain restorative, she would like to take 1 day at a time
OP treatment initiation of cycle 1 pembro, carbo, taxol with pegfilgrastim will be rescheduled dependent on hospital outcomes
At this point, patient does not appear to be eligible to resume therapy and hospice is appropriate although is currently being pushed back upon by per prior conversations with my team.
Dr. Galvan rounds tomorrow and may be will be more successful in transitioning to comfort measures.
Subjective/Objective
Chief Complaint
ACS
Subjective
Patient is pretty moribund and actively dying. PS = 4. Extremely deconditioned
Vital Signs:
Vital Signs
Temp Pulse Resp BP Pulse Ox
98.6 F 103 28 130/81 97
02/04/25 07:51 02/04/25 10:00 02/04/25 10:00 02/04/25 10:00 02/04/25 10:00
Lab Results:
Laboratory Data
WBC 6.1 10^3/uL (4.8-10.8) 02/04/25 03:21
Hgb 8.8 g/dL (13.0-18.0) L 02/04/25 03:21
Plt Count 274 10^3/uL (130-400) 02/04/25 03:21
PT 15.3 Sec (11.4-14.6) H 01/29/25 16:44
INR 1.16 01/29/25 16:44
APTT 25.4 Sec (23.4-35.0) 01/29/25 16:44
eGFR > 60.00 02/04/25 03:21
Physical Exam
Trach
HEENT: Jaundice
Cardiology: S1 and S2
Pulmonary: Rhonchi
--- NOTE | 2025-02-04 11:51 | CON.ID ---
Consultation
-
Date/Time Consultation Requested: 02/04/25 10:57
Date/Time Consultation Performed: 02/04/25 11:51
Requesting Provider: Dr Mccord
Performing Provider: Dr Torrez
Reason for Consultation: trach aspirates pseudomonas and MSSA, urine culture MDRO entoerococcus
Chief Complaint / Past History
Chief Complaint
hemoptysis
History of Present Illness
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 He is a former smoker. There was no
bleeding through the trache. No fevers, chills, chest pain. He did notice bloody secretions overnight which was new for him. no nausea, vomiting, diarrhea or LE swelling. Also on prednisone 10 mg po qday prior to arrival.
Since arrival here he was initially afebrile for the first 48 hours then 01/31 developed fevers to Tmax of 101.1 via the core route, with resumption of axillary Ts fever resolved and patient has been afebrile x48 hours, BP has been stable and he has
not required pressors, wbc on arrival 8.7 and remains 6.1 today, hgb has been running in the 8s throughout his stay - he has been getting periodic transfusions, plt 200-300 range - normal, L shift was noted on arrival and when checked has persisted
- last assessed yesterday, Na 136 on arrival, cr has been in the 0.4 to 0.5 range, lfts essnetially normal, ua on 02/01 showed 16-20 wbc/hpf and few bacteria, urine culture 100 K e faecalis amp sensitive, covid ag negative, CTA neck 01/29 showed: 1.8
cm irregular shaped air-filled cavity in the right side of the oropharynx which could be secondary to interval surgical resection of tongue carcinoma or tumor necrosis. regions of enhancing soft tissue in the left oropharynx and posterior right
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 Diagnostic possibilities are (1) tumor infiltration or (2) post therapy edema.' CT PE: no PE He was placed on the ventilator and sedated. He underwent packing with ENT. Embolization was considered but assessed as
being high risk for stroke and no pursued. 01/30 CXR: no active CP disease, 02/01 CXR: clear lungs, 02/02 CXR: low lung volumes no definite consolidation. 02/01 a tracheal aspirate was done growing few Pseudomonas and moderate S aurues - sensitives
pending, 02/01 blood cultures x2 no growth to date. packing was removed 01/30. Tracheostomy was changed to cuffed shiley. With the start of core T monitoring he had a tmax of 101.1 and tracheal aspirate was sent, he was planned to start unasyn
however was switched to vancomycin and cefepime which he remains on at this time.
Past History
Additional Past Medical History:
CAD and Cancer (Squamous cell cancer of the tongue,)
Additional Past Surgical History:
as per hpi
Allergy History:
bee venom protein (honey bee) Allergy (Severe, Verified 01/29/25 09:54)
Anaphylaxis
Penicillins Allergy (Verified 01/29/25 09:54)
Rash
Medications Reviewed: Yes
Social History
Tobacco: Former Smoker
Alcohol: None
Drug: None
Family History
Family History: Not Pertinent
Review of Systems
Review of Systems
General: Negative Fever or Chills
All systems: All other systems were reviewed and were negative
Vital Signs
Temp Pulse Resp BP Pulse Ox
98.8 F 88 22 118/81 98
02/04/25 11:15 02/04/25 11:00 02/04/25 11:00 02/04/25 11:00 02/04/25 11:00
Physical Exam
Physical Exam
Constitutional: No Acute Distress, Chronically Ill and Cachetic
Cardiovascular: Regular Rate and S1/S2; Negative Murmur or Rub
Pulmonary: Clear and Symmetric; Negative Wheezes, Rales or Rhonchi
Gastrointestinal: Soft, Non Tender, Non Distended and Normal Bowel Sounds
Skin: Warm and Dry; Negative Rash or Jaundice
Lines: Other (PEG and Trache)
Lab / Diagnostic Study Results
02/04/25 03:21
02/04/25 03:21
Abs Immat Gran (auto) 0.0 10^3/uL (0-0.05) 02/03/25 03:20
Absolute Neuts (auto) 5.4 10^3/uL (1.4-6.5) 02/03/25 03:20
Absolute Lymphs (auto) 0.3 10^3/uL (1.2-3.4) L 02/03/25 03:20
Absolute Monos (auto) 0.3 10^3/uL (0.1-0.6) 02/03/25 03:20
Absolute Basos (auto) 0.0 10^3/uL (0-0.2) 02/03/25 03:20
Total Counted 100 02/02/25 03:11
Immature Gran % 0.7 % (0-0.5) H 02/03/25 03:20
Neutrophils % 88.9 % (42.2-75.2) H 02/03/25 03:20
Lymphocytes % 4.8 % (20.5-51.1) L 02/03/25 03:20
Monocytes % 4.6 % (1.7-9.3) 02/03/25 03:20
Eosinophils % 0.8 % (0-6) 02/03/25 03:20
Basophils % 0.2 % (0-2) 02/03/25 03:20
Abs Neuts (Manual) 5.3 10^3/uL (1.4-6.5) 02/02/25 03:11
Segmented Neutrophils 54 % (42-75) 02/02/25 03:11
Band Neutrophils 35 % (0-3) H D 02/02/25 03:11
Lymphocytes (Manual) 3 % (20-51) L 02/02/25 03:11
Eosinophils (Manual) 2 % (0-6) 02/02/25 03:11
PT 15.3 Sec (11.4-14.6) H 01/29/25 16:44
INR 1.16 01/29/25 16:44
Ur Squamous Epith Cells 0-2 /LPF (Few) 02/01/25 09:58
Microbiology Results
Micro:
02/01/25 13:10 Respiratory Culture - Preliminary
Tracheal Aspirate Pseudomonas aeruginosa
Staphylococcus aureus
Gram Stain - Preliminary
02/01/25 18:43 Blood Culture - Preliminary
Blood/Venous No Growth in 48 hours- Final report to follow
02/01/25 09:58 Urine Culture - Final
Urine Enterococcus faecalis
Aerococcus Species
02/01/25 13:21 Blood Culture - Preliminary
Blood/Venous No Growth in 48 hours- Final report to follow
02/01/25 13:23 Influenza Types A & B (ROMMEL) - Final
Nasal Swab Negative for Influenza A & B, NAAT
Negative results must be combined with clinical observations
and patient history.
Nucleic Acid Amplification test (NAAT)performed on the
[employer] platform.
Urine Culture Final 02/04/25-0843
CC: Greater than 100,000 CFU/ML Enterococcus faecalis
CC: 20,000 CFU/ML AEROCOCCUS SPECIES
No standardized antibiotic susceptibility testing is
available for Aerococcus species. Potentially active agents
include penicillins and vancomycin. Effectiveness of
cephalosporins is uncertain.
Organism 1 Enterococcus faecalis
1. Enterococcus faecalis
M.I.C. RX
--------- ---
Ampicillin <=2 S
Gentamicin Synergy Screen <=500 S
Susceptible result indicates synergy is likely with a cell
wall active agent that is also susceptible
(e.g.ampicillin,penicillin,vancomycin)
Levofloxacin >4 R
Nitrofurantoin-Urine Only <=32 S
Tetracycline >8 R
Vancomycin 2 S
Respiratory Culture Preliminary 02/04/25
Few Pseudomonas aeruginosa
Moderate Presumptive Staphylococcus aureus
Organism 1 Pseudomonas aeruginosa
1. Pseudomonas aeruginosa
M.I.C. RX
--------- ---
Aztreonam <=4 S
Cefepime <=2 S
Ceftazidime <=1 S
Ciprofloxacin <=0.25 S
Meropenem <=1 S
Piperacillin/Tazobactam <=8 S
Tobramycin <=2 S
Assessment / Plan
Fever - resolved
Tracheitis
Possible UTI
Hemoptysis
SCC of the oral cavity-s/p chemoradiation
- note that fever via the core route (rectal) is defined as over 101.0, he did have mild fever via this route of 101.1 on 02/01; currently getting axillary Ts which I would continue. Using a consistent route to assess Ts is important for trending a
fever curve; never had leukocytosis
- blood cultures x2 no growth to date
- tracheal aspirate - Pseudomonas and S aureus - awaiting sensitivities on the S aureus
- UA with mild pyuria and urine culture notable for 100K amp sensitive E faecalis; 20K aerococcus is not sufficient concentration to warrant treatment
- continue cefepime - day 3
- continue vancomycin day 2
- plan 5 day overall course of antibiotics, deescalation to orals pending S aureus susceptibilities
- appreciate oncology input
- note plans to change back to trocar at the time of discharge - this will also decrease the overall bioburden
--- NOTE | 2025-02-04 12:02 | PTCARENOTE ---
Pt stated urge to void but unable, reconfirmed condom cath placement and reassured pt. Continues to be unable to void. Straight cath without issue for 675cc.
--- NOTE | 2025-02-04 12:39 | PTCARENOTE ---
Pt assisted OOB to chair with OT/PT. See note. Pt then indicated need to have BM. Placed on Bedpan, pt unable to get comfortable. To bedside commode with Mod asst. Large BM. Max assist back to chair.
--- NOTE | 2025-02-04 14:17 | RESPNOTE ---
met bedside with speech therapy to assess patient for speaking valve per MD order. patient had multiple episodes of consistent coughing and had copious amounts of oral and tracheal secretions. speaking valve was not placed-will re assess tomorrow.
RN aware.
--- NOTE | 2025-02-04 14:24 | PTCARENOTE ---
Pt repeatedly trying to get out of chair. Unable to indicate why and is angry when redirected/reminded to stay seated. While RN out of the room, family visitor stepped out of room and pt removed oxygen (has happened repeatedly throughout shift) and
broke IV tubing at port. Pt found standing when chair alarm went off, with blood on front of gown. SQ port access and dressing intact. IV flushed and gown changed. Pt repeatedly stating that he wants to go home. Reoriented to situation.
--- NOTE | 2025-02-04 14:50 | HOSPNOTE ---
Spouse will call me back tomorrow to discuss hospice and the philosophy. More information to follow.
--- NOTE | 2025-02-04 15:36 | CM ---
MD consult for hospice evaluation and treat. Referral forwarded.
--- NOTE | 2025-02-04 16:23 | PHA.VAN.FU ---
Vancomycin Assessment / Plan
- Assessment
Renal Function: Stable
WBC's are: WNL
In the past 24 hrs, patient has been: Afebrile
Concomitant Antimicrobials: cefepime
- Dosing Plan
Continue: Vanc 750mg Q12H
- Monitoring Plan
Peak Level: 02/04 21:00
Trough Level: 02/05 05:30
Monitoring Comments: levels to be drawn after 6th maintenance dose
- Follow Up
Pharmacy will continue to follow.
Vancomycin Follow UP
- -
Patient Age: 69
Patient Sex: Male
Vancomycin Day #: 3
Indication: Genito-Urinary Tract
Requesting Provider: Ronni
Pertinent Antimicrobial Allergies:
penicillins - rash
Height / Weight:
Height 5 ft 9 in
Actual Weight 56.2 kg
IBW in k.7
Pertinent Past Medical History: BMI ~18, Squamous cell carcinoma of tongue (Trach/PEG)
- Vital Signs / Lab Results
Temp Pulse Resp BP Pulse Ox
98.8 F 134 23 114/92 98
02/04/25 11:15 02/04/25 15:00 02/04/25 15:00 02/04/25 14:02 02/04/25 15:00
Lab Results - Hematology
02/02/25 02/03/25 02/04/25
03:11 03:20 03:21
WBC 6.0 6.0 6.1
Band Neutrophils 35 H D
Lab Results - Chemistry
02/02/25 02/03/25 02/04/25
03:11 03:20 03:21
BUN 15 24 H 24 H
Creatinine 0.4 L 0.5 L 0.4 L
Estimated Creat Clear 98 96 95
Albumin 2.5 L
Microbiology Results
02/01/25 13:21 Blood Culture - Preliminary
Blood/Venous No Growth in 72 hours- Final report to follow
02/01/25 13:10 Respiratory Culture - Preliminary
Tracheal Aspirate Pseudomonas aeruginosa
Staphylococcus aureus
Gram Stain - Preliminary
02/01/25 18:43 Blood Culture - Preliminary
Blood/Venous No Growth in 48 hours- Final report to follow
02/01/25 09:58 Urine Culture - Final
Urine Enterococcus faecalis
Aerococcus Species
[2025-02-04] MEDS: ZYPREXA 5 MG IM (17:17)
[2025-02-04] MEDS: STERILE WATER FOR INJECTION 2.1 ML IM (17:18)
[2025-02-04] MEDS: DESYREL 50 MG TUBE (20:16)
--- NOTE | 2025-02-04 20:30 | PTCARENOTE ---
Assumed care of pt. Pt can follow commands and mouth words, attempts to get OOB frequently/restless. medicated with prn trazadone. Incont of stool. Suctioned orally and via trach for thick parnell secretions. Pt hasn't voided (straight cathed at 1200) ,
bladder scanned for 500. St cathed for 425 ccs. Jevity 1.5 going @ 55ml/hr w/ 25 ml/hr flushes. 1:1 at bedside.
[2025-02-04 20:54] LABS: Venous Blood Gas B.E. 5.5 mmol/L (-4 to +4); Venous Blood Gas HCO3 29.9 mmol/L (22-27); Venous Blood Gas O2 Sat % 94.3 %; Venous Blood Gas pCO2 42 mmHg (35-48); Venous Blood Gas pH 7.46 (7.32-7.43); Venous Blood Gas pO2 64 mmHg (30-50)
[2025-02-04 21:17] LABS: Venous Blood Gas O2 Therapy %Oxygen/Room Air 28
[2025-02-04 21:26] LABS: Vancomycin Peak 15.8 ug/ml (18-26)
[2025-02-04] MEDS: ATIVAN 1 MG IV (22:27)
[2025-02-05] VITALS (11 sets, daily range): BP systolic 105–147; BP diastolic 69–97; BMI 18.1
--- NOTE | 2025-02-05 00:26 | PTCARENOTE ---
Pt restless, trying to get OOB and becomes tachypneic with activity. 97% on trach collar 28%. Tachycardic up to 120s-130s with turns. COP notified and ordered IM zyprexa.
[2025-02-05] MEDS: ZYPREXA 5 MG IM (01:07)
[2025-02-05] MEDS: MAXIPIME 2000 MG IV ×3 (04:09→19:24)
[2025-02-05] MEDS: STERILE WATER FOR INJECTION 10 ML IV ×3 (04:09→19:24)
[2025-02-05] MEDS: ROXICODONE 15 MG TUBE ×6 (04:09→23:56)
[2025-02-05 05:09] LABS: Hematocrit 31.7 % (39.0-52.0); Hemoglobin 10.7 g/dL (13.0-18.0); Mean Corp Hgb Conc. 33.8 g/dL (33.0-37.0); Mean Corpuscular Hgb 30.9 pg (27.0-31.0); Mean Corpuscular Volume 91.6 fL (80.0-94.0); Mean Platelet Volume 9.2 fL (7.4-10.4); Platelet Count 348 10^3/uL (130-400); Red Blood Cell Count 3.46 10^6/uL (4.70-6.10); Red Cell Dist. Width 13.8 % (11.5-14.5); White Blood Cell Count 6.9 10^3/uL (4.8-10.8)
[2025-02-05 05:32] LABS: Blood Urea Nitrogen 24 mg/dl (9-20); Calcium 8.3 mg/dl (8.4-10.2); Carbon Dioxide 30 mmol/L (22-30); Chloride 98 mmol/L (98-107); Estimated Creatinine Clearance 95 ml/min; Glucose 138 mg/dl (70-99); Magnesium 1.8 mg/dl (1.6-2.3); Potassium 3.5 mmol/L (3.5-5.1); Sodium 137 mmol/L (135-145); eGFR > 60.00
[2025-02-05] MEDS: VANCOCIN 150 IV (06:43)
--- NOTE | 2025-02-05 08:08 | W.PN.HOSP.TC ---
Today's Communication/Plan
-
MSSA
Hospice discussions
Optimal pain management.
Continue Zyprexa as needed.
Assessment / Plan
Assessment / Plan
Assessment-
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
bleed from the tumor site.
Plan-
Hemoptysis-
Massive, with acute blood loss anemia.
CT PE protocol negative for pulmonary embolism. ENT removed packing on 01/30. No bleeding source identified.
Weaned off of ventilator on 01/31. Through 01/31 to 02/02-patient tolerated intervals of trach collar for 8 to 12 hours.
S/p 24 hours on trach collar without mechanical ventilation. SpO2 goal 88 to 94% with underlying COPD.
Chest x-ray shows no evidence of active cardiopulmonary disease, left apical hemithorax is limited in evaluation because of patient's position.
S/p discontinuation of tranexamic acid x 2 days. Last dose of TXA on 02/02 at 2 PM.
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 Reviewed with my supervising provider Dr. Hairston.
[place] to reduce the clot burden.
Avoid any form of anticoagulation.
Appreciate ENT, and animal anatomist inputs.
Fever
Possibly inflammatory secondary to malignancy versus hypercoagulability versus infection from aspiration.
Trach secretions positive for Pseudomonas and Staph aureus. Staph aureus - MSSA.
Blood cultures X 2 - no growth for 72 hrs.
Urine cultures positive for Enterococcus species, sensitive only to vancomycin and Unasyn -Asymptomatic bacteruria.
Will consult ID for further management. Last recorded temperature spike was 101 on 02/02 in the evening yesterday.
Chest x-ray-no significant change,
Urine analysis and culture-positive for Enterococcus species, tracheal aspirate-positive for Pseudomonas species,
Blood cultures x 2-negative. Flu and COVID testing-negative.
Currently patient on IV Unasyn-day 4 today (started on 02/01). Vancomycin- day 3.
Brief episode of acute delirium-
Sundowning versus ICU induced delirium, single episode
Self resolved spontaneously.
Delirium precautions, use restraints with caution
No further delirium episodes.
Acute blood loss anemia-
Hemoglobin 8.5 upon arrival, s/p 1 unit of blood transfusion.
Serial H&H's, and monitor for any acute blood loss
Transfusion if Hb less than 8.5
Currently hemoglobin remained stable.
Pulmonary nodule-6 mm, emphysema-as noted on CAT scan
Unclear if patient has a diagnosis of COPD.
[id number] of smoking history recently quit smoking about 2 months ago after diagnosis of basal cell tongue cancer.
Flake Or Shred Roll Operator recommends outpatient follow-up for COPD evaluation.
History of squamous cell carcinoma, oral cavity-s/p chemoradiation.
[facility]
Patient's family also wants a close ENT follow-up within the [facility] system along with you pending ENT.
Will provide local ENT referral.
Hypokalemia-
Resolved. Trend potassium levels
Replete as needed.
Hypomagnesemia-
Resolved. Trend magnesium levels.
Replete as needed.
Tracheostomy tube -
Previously on trocar 8, changes to cannula twice a day.
Currently on Shiley 6.0, ENT plans to change back to trocar 8 at the time of discharge.
GI prophylaxis-
Lansoprazole
Chronic pain syndrome-opioid dependence-
Continue home medication regimen
On 135 MME per day.
Cachexia-
Secondary to malignancy.
BMI at 18.1. currently on Jevity 1.5, 3 times a day.
DVT prophylaxis-sequential compression device
CODE STATUS-
Limited DNR.
Anticipated Discharge: > 48 hours
Subjective/Interval History
-
Date of Service: February 05, 2025
Patient had acute axillary temperature spike-101.2 today. He has copious amounts of thick green tracheal secretions. He reports constant pain. Single episode of elevated blood pressure in the morning around 6 AM.
Objective Data
-
Labs:
Laboratory Results
02/05/25
04:41
WBC 6.9
Hgb 10.7 L D
Hct 31.7 L
Plt Count 348 D
Sodium 137
Potassium 3.5
Chloride 98
Carbon Dioxide 30
BUN 24 H
Creatinine 0.4 L
Glucose 138 H
Calcium 8.3 L
Vital Signs:
Vital Signs
Temp Pulse Resp BP Pulse Ox
101.2 F H 113 24 147/97 99
02/05/25 07:00 02/05/25 06:00 02/05/25 06:00 02/05/25 06:00 02/05/25 06:00
I&O
02/04/25 02/05/25 02/06/25
06:59 06:59 06:59
Intake Total 2310 / 2390 1110 / 1110
Output Total 850 / 850 1100 / 1100
Balance 1460 / 1540
Review of Systems
-
Unable to obtain full review of systems at this time due to: Patient Non-verbal
History Source: Patient (Still nods his head yes or no for complaints.)
Constitutional: Reports No Symptoms
EENT: Reports No Symptoms Reported
Respiratory: Reports Cough and Trouble Breathing
Cardiac: Reports No Symptoms
Abdomen/GI: Reports No Symptoms
Breast: Reports No Symptoms
Genitourinary: Reports No Symptoms
Musculoskeletal: Reports No Symptoms
Skin: Reports No Symptoms
Neuro: Reports No Symptoms
Endocrine: Reports No Symptoms
Hematologic / Lymphatic: Reports No Symptoms
Physical Exam
-
General: Comfortable and Respiratory Distress (Mild)
HEENT: Moist Mucous Membranes
Respiratory: Wheezes (In bilateral upper lobes. ) and Crackles (Bilateral lower lobes.); Negative Rales or Rhonchi
Cardiac: Regular Rhythm and S1/S2; Negative Murmur, Rub or Gallop
GI: Soft, Nontender, Nondistended and Normal Bowel Sounds
Musculoskeletal: No Clubbing, No Cyanosis and No Edema
Neuro: AO x 3 and No Motor Deficits
Psych: Calm
Data Reviewed
-
Labs: Labs Reviewed by me, Discussed with Physician and Discussed with Nurse
--- NOTE | 2025-02-05 08:17 | PHA.VAN.FU ---
Vancomycin Assessment / Plan
- Assessment
Renal Function: Stable
WBC's are: WNL
Concomitant Antimicrobials: cefepime
- Assessment - Therapeutic Drug Monitoring
Peak level was drawn: Appropriately (drawn ~2.6H after end of previous infusion)
Extrapolated Cmin (mcg/mL): 7.7
Trough Drawn: Appropriately
Levels were drawn: At steady state (levels drawn after 6th maintenance dose)
Calculated AUC (mcg*h/mL): 309
Calculated ke: 0.0861
Calculated half life (H): 8
Calculated Vd (L): 56 (~1 L/kg)
Calculated Vanc CL (ml/min): 81
- Dosing Plan
Continue: Vanc 1000mg Q12H starting at 1800
New Regimen Predicts: AUC (430), Peak (27.6), Trough (10.7)
Dosing Comments: give additional 500mg x1 now to booster levels
- Monitoring Plan
No level(s) ordered at this time: consider levels in next few days
- Follow Up
Pharmacy will continue to follow.
Vancomycin Follow UP
- -
Patient Age: 69
Patient Sex: Male
Vancomycin Day #: 4
Indication: Genito-Urinary Tract
Requesting Provider: Ronni
Pertinent Antimicrobial Allergies:
penicillins - rash
Height / Weight:
Height 5 ft 9 in
Actual Weight 55.6 kg
IBW in k.7
Pertinent Past Medical History: BMI ~18, Squamous cell carcinoma of tongue (Trach/PEG)
- Vital Signs / Lab Results
Temp Pulse Resp BP Pulse Ox
101.2 F H 113 24 147/97 99
02/05/25 07:00 02/05/25 06:00 02/05/25 06:00 02/05/25 06:00 02/05/25 06:00
Lab Results - Hematology
02/03/25 02/04/25 02/05/25
03:20 03:21 04:41
WBC 6.0 6.1 6.9
Lab Results - Chemistry
02/03/25 02/04/25 02/05/25
03:20 03:21 04:41
BUN 24 H 24 H 24 H
Creatinine 0.5 L 0.4 L 0.4 L
Estimated Creat Clear 96 95 95
Albumin 2.5 L
Microbiology Results
02/01/25 13:10 Respiratory Culture - Preliminary
Tracheal Aspirate Pseudomonas aeruginosa
Staphylococcus aureus
Gram Stain - Preliminary
02/01/25 18:43 Blood Culture - Preliminary
Blood/Venous No Growth in 72 hours- Final report to follow
02/01/25 13:21 Blood Culture - Preliminary
Blood/Venous No Growth in 72 hours- Final report to follow
02/01/25 09:58 Urine Culture - Final
Urine Enterococcus faecalis
Aerococcus Species
Therapeutic Drug Monitoring
Vancomycin Peak 15.8 ug/ml (18-26) L 02/04/25 20:47
Vancomycin Trough 8.0 ug/ml (5-20) 02/05/25 04:41
[2025-02-05] MEDS: LIDOCAINE 4% PATCH 1 PATCH TOPICAL (08:19)
[2025-02-05] MEDS: TYLENOL ORAL SOLUTION 650 MG TUBE (08:19)
[2025-02-05] MEDS: ROBITUSSIN 200 MG TUBE ×4 (08:19→23:56)
[2025-02-05] MEDS: PREVACID 30 MG TUBE (08:20)
[2025-02-05] MEDS: ATIVAN 0.5 MG TUBE (08:20)
[2025-02-05] MEDS: DELTASONE 30 MG TUBE (08:20)
[2025-02-05] MEDS: MIRALAX TUBE (08:20)
[2025-02-05] MEDS: ROBINUL 1 MG TUBE ×2 (08:20→16:23)
--- NOTE | 2025-02-05 08:35 | W.PN.INTV ---
Addendum entered and electronically signed by Patricio Maciel MD 02/05/25 16:28:
CDI inquiry response:
Acute hypoxic respiratory failure
Original Note:
Today's Communication / Plan
Recommendations
Appropriate for downgrade to IMU
Optimistically, hospice/palliative care conversation with Dr. Galvan during rounds
Defer to infectious disease regarding antibiotic management, we recommend transition to Zosyn
Continue rectal trumpet for diarrhea
Continue supportive measures and suctioning
Assessment
-
Assessment:
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 Reportedly
patient was in the infusion center about to receive a cycle of chemotherapy when he developed hemoptysis and was subsequently sent to emergency department. Reportedly bleeding developed the night before and patient was bringing up blood per mouth,
no bleeding from the tracheostomy. Patient also has a diagnosis of prostate cancer s/p radiation and TURP. Patient reportedly follows ENT at [facility], and Dr. Galvan for medical oncology.
Plan:
#Hemoptysis
Resolved
Status post packing via ENT and nebulized TXA
Suspect originating from tumor bed in upper airway
ENT following, bleeding has resolved. ENT recommended doing nothing, or initiating low-dose TXA. Will defer to primary team
If patient is stable for be discharge, radiation oncology can consider giving BID radiation for 2 days to ideally control bleeding
Continue daily CBC to monitor hemoglobin
Avoid antiplatelets and anticoagulation
#Acute respiratory failure
Currently at baseline s/p tracheostomy on trach collar.
at baseline wears a cough flex Portex 8.0 tracheostomy tube with trach collar. In view of hemoptysis, he was switched to Shiley 6.0 cuffed tracheostomy tube and was placed on mechanical ventilation.
Have been alternating between pressure support and mechanical ventilation during his stay. Currently he is not requiring mechanical ventilation
Takes prednisone as outpatient, likely from chemo and/or to reduce swelling from his head neck cancer
Resume prednisone with slow taper
Continue supportive measures
Continue suction
Appropriate for downgrade to IMU. Reportedly wants downgrade to IMU
#Fever
Had previous resolved, did spike 1 fever today, 101.2 axillary temp.
Likely secondary to Pseudomonas pneumonia and/or Enterococcus UTI
Currently receiving IV cefepime and IV vancomycin
Foul-smelling thick secretions, from tracheostomy site
Sputum positive for pansensitive Pseudomonas and Staph aureus
Enterococcus sensitive to vancomycin and ampicillin
Sensitivities of Enterococcus, Pseudomonas and Staph aureus returned. We recommend Zosyn to cover all 3
Will continue with current antibiotics of IV cefepime and vancomycin. Will defer to infectious disease regarding antibiotic coverage
Infectious disease following
Blood cultures no growth to date
#Squamous cell carcinoma, base of tongue
#Goals of care discussion
High risk disease, p16 negative
Per records, patient follows ENT at [facility] and Dr. Galvan for medical oncology
Patient is status post laryngectomy , First cycle of chemotherapy was postponed due to patient requiring hospitalization secondary to hemoptysis
Patient is hospice appropriate, current goals from are to take things 1 day at a time. She endorses still wanting to pursue treatment options
Dr. Galvan is scheduled to round tomorrow, optimistically he will be able further or goals of care discussion regarding hospice/palliative care
Hospice consult ordered by primary care service yesterday, reportedly did not want to engage conversation
Oncology evaluated ECOG score of 4 and he is not a candidate for any additional chemotherapy at this time
Can consider 4 fractions of twice daily radiation to palliatively prevent future bleeding, if patient is able to be discharged.
# Emphysema with 6 mm lung nodule.
Reported significant secretions at baseline
Extensive smoking history and emphysema on imaging�suggestive of underlying COPD
Continue DuoNeb, adjustments for tachycardia as needed
Added on 3% nebulized saline as needed for secretions
Scopolamine patch discontinued as secretions were very thick
Would benefit from PFTs and outpatient workup if feasible in the future
Diet: Tube feeds
DVT prophylaxis: SCDs
CODE STATUS Limited DNR
Subjective Dataa
Subjective Data
Date of Service:
Date of Service: February 05, 2025
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
Subjective:
Overnight patient developed a fever, did receive IM Zyprexa and reportedly began having copious diarrhea-prompting rectal trumpet administration. still currently adamant about restorative goals of care for chemotherapy. Reportedly wants
patient downgraded to IMU. Hospice was consulted yesterday.
Review of Systems
General: Other (Patient nonverbal secondary to laryngectomy)
Objective Data
Data Reviewed
Vital Signs / I&O / Oxygen:
Vital Signs
Temp Pulse Resp BP Pulse Ox
101.2 F H 113 24 147/97 99
02/05/25 07:00 02/05/25 06:00 02/05/25 06:00 02/05/25 06:00 02/05/25 06:00
Intake and Output
02/04/25 02/05/25 02/06/25
06:59 06:59 06:59
Intake Total 2310 / 2390 1110 / 1110
Output Total 850 / 850 1100 / 1100
Balance 1460 / 1540 10 / 10
SaO2 [CPAP/PSV] 97
SaO2 [A/C] 95
SaO2 99
Nasal Cannula flow liters per 3
minute
Physical Exam
General: Respiratory Distress (negative), Comfortable, Chills (negative) and Sweats (negative)
HEENT: Normocephalic and Other (+trach in place with thick, foul smelling mucous coming out)
Cardiovascular: S1-S2, Rub (negative) and Peripheral Edema (negative)
Respiratory: Wheeze (negative), Crackles (Bilaterally mainly in the upper lung frederick), Rhonchi (negative), Non-Labored Respirations and Stridor (negative)
GI: Soft, Non Distended, Non Tender and Normal Bowel Sounds
Neurology: Awake, Alert and Tremors (negative)
Skin: Warm, Dry, Cyanosis (negative) and Jaundice (negative)
Labs/Micro/Reports
Lab Data
02/05/25 04:41
02/05/25 04:41
Microbiology
02/01/25 13:10 Tracheal Aspirate Respiratory Culture - Final
Pseudomonas aeruginosa
S aureus-Methicillin Sensitive
02/01/25 13:10 Tracheal Aspirate Gram Stain - Final
02/01/25 18:43 Blood/Venous Blood Culture - Preliminary
No Growth in 72 hours- Final report to follow
02/01/25 13:21 Blood/Venous Blood Culture - Preliminary
No Growth in 72 hours- Final report to follow
02/01/25 09:58 Urine Urine Culture - Final
Enterococcus faecalis
Aerococcus Species
--- NOTE | 2025-02-05 08:57 | W.PN.ONC2 ---
Today's Communication / Plan
-
.
Impression
Impression
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
ABLA from tumor s/p 1 UPRBC 5/8, Hgb 8.7g/dL today
Fever, not neutropenic
PEG
Trach
chronic pain, on chronic opioids
malnutrition
Plan
Plan
GOC discussed with at bedside on 02/03, currently goals remain restorative, she would like to take 1 day at a time
could consider RT BID x 2 days to help control bleeding after discharge d/w Dr. Farias
OP treatment initiation of cycle 1 pembro, carbo, taxol with pegfilgrastim will be rescheduled dependent on hospital outcomes
At this point, patient does not appear to be eligible to resume therapy and hospice is appropriate
monitor for bleeding
Subjective/Objective
Subjective
poor historian, lethargic
no obvious bleeding on exam
breathing unlabored
Vital Signs:
Vital Signs
Temp Pulse Resp BP Pulse Ox
101.2 F H 113 24 147/97 99
02/05/25 07:00 02/05/25 06:00 02/05/25 06:00 02/05/25 06:00 02/05/25 06:00
Lab Results:
Laboratory Data
WBC 6.9 10^3/uL (4.8-10.8) 02/05/25 04:41
Hgb 10.7 g/dL (13.0-18.0) L D 02/05/25 04:41
Plt Count 348 10^3/uL (130-400) D 02/05/25 04:41
PT 15.3 Sec (11.4-14.6) H 01/29/25 16:44
INR 1.16 01/29/25 16:44
APTT 25.4 Sec (23.4-35.0) 01/29/25 16:44
eGFR > 60.00 02/05/25 04:41
Physical Exam
General: Appears Chronically Ill and Other (trach)
HEENT: Moist Mucous Membranes; Negative Jaundice
Cardiology: Normal Sinus Rhythm
Pulmonary: Clear
GI: Soft and Other (PEG)
Extremities: Pulses Present; Negative Edema
Skin: Warm
[2025-02-05] MEDS: VANCOCIN HCL 500 MG 100 IV (09:01)
--- NOTE | 2025-02-05 09:20 | PTCARENOTE ---
report received, assessments per work list. patient restless and combative with all care. does at times follow commands. 1:1 supervision at bedside to maintain safety. monitor sinus tachycardia, short period afib noted. self limited. right sq port
with good blood returns. copious oral and trach secretion. parnell and pungent. suctions frequently. drooling. prn robinul administered. allowed oral care. trach care provided in conjunction with RT's. protective foam placed between neck/chin and top of
trach. lungs with coarse rhonchi. abdomen soft. peg in place. tube feeds as ordered. incontinent large amount loose yellow brown stool. trumpet placed. no urine output. bladder scan as per work list.
--- NOTE | 2025-02-05 09:37 | HOSPNOTE ---
Meeting with spouse today at 2pm to discuss hospice and the philosophy. More information to follow.
[2025-02-05] MEDS: DILAUDID 0.5 MG IV (10:13)
--- NOTE | 2025-02-05 11:13 | W.PN.ID1 ---
Date of Service
Date of Service: February 05, 2025
Today's Communication
- continue cefepime - day 3
- continue vancomycin day 2
- add metronidazole
- appreciate oncology input, agree that hospice is indicated at this time; if patient transitions to hospice recommend stopping antibiotics
Assessment / Plan
Intermittent Fevers
Tracheitis
Possible UTI
Hemoptysis
SCC of the oral cavity-s/p chemoradiation
Reported allergy to penicillin - rash
- relapse of fevers
- blood cultures x2 no growth to date
- tracheal aspirate - Pseudomonas and MSSA
- UA with mild pyuria and urine culture notable for 100K amp sensitive E faecalis; 20K aerococcus is not sufficient concentration to warrant treatment
- continue cefepime - day 3
- continue vancomycin day 2
- add metronidazole
- appreciate oncology input, agree that hospice is indicated at this time; if patient transitions to hospice recommend stopping antibiotics
Chief Complaint
-: UTI and Other (tracheitis)
Subjective / Review of Systems
febrile yesterday
bp overall stable
not responding to questions, I am not clear if trache has been exchanged though I see it is planned
Vital Signs / Physical Exam
Vital Signs
Vital Signs
Temp Pulse Resp BP Pulse Ox
98.6 F 110 19 129/82 98
02/05/25 10:14 02/05/25 09:00 02/05/25 09:00 02/05/25 08:00 02/05/25 10:14
Physical Exam
Constitutional: Acutely Ill and Chronically Ill
Cardiovascular: Regular Rate and S1/S2; Negative Murmur or Rub
Pulmonary: Clear and Symmetric; Negative Wheezes or Rales
Gastrointestinal: Soft, Non Tender, Non Distended and Normal Bowel Sounds
Skin: Warm and Dry; Negative Rash or Jaundice
Objective Data
Lab Data
Lab Results
02/05/25 04:41
02/05/25 04:41
PT 15.3 Sec (11.4-14.6) H 01/29/25 16:44
INR 1.16 01/29/25 16:44
APTT 25.4 Sec (23.4-35.0) 01/29/25 16:44
Estimated Creat Clear 95 ml/min 02/05/25 04:41
Total Bilirubin 0.5 mg/dl (0.2-1.3) 02/03/25 03:20
AST 14 U/L (17-59) L 02/03/25 03:20
ALT 12 U/L (0-50) 02/03/25 03:20
Alkaline Phosphatase 74 U/L (38-126) 02/03/25 03:20
Most recent labs reviewed.
Respiratory Culture Final 02/05/25-830
Few Pseudomonas aeruginosa
Moderate S aureus-Methicillin Sensitive
No Usual Respiratory Cynthia
Organism 1 Pseudomonas aeruginosa
Organism 2 S aureus-Methicillin Sensitive
P.AERU MSSA
M.I.C. RX M.I.C. RX
--------- --- --------- ---
Amoxicillin/Potas. Clavulanate <=4/2 S
Ampicillin 8 R
Aztreonam <=4 S
Cefepime <=2 S
Ceftazidime <=1 S
Clindamycin <=0.5 S
Ciprofloxacin <=0.25 S
Gentamicin <=4 S
Erythromycin >4 R
Levofloxacin >4 R
Oxacillin 0.5 S
Meropenem <=1 S
Piperacillin/Tazobactam <=8 S
Tetracycline <=4 S
Tobramycin <=2 S
Trimethoprim/Sulfamethoxazole <=0.5/9.5 S
Vancomycin 1 S
Urine Culture Final 02/04/25-0843
CC: Greater than 100,000 CFU/ML Enterococcus faecalis
CC: 20,000 CFU/ML AEROCOCCUS SPECIES
No standardized antibiotic susceptibility testing is
available for Aerococcus species. Potentially active agents
include penicillins and vancomycin. Effectiveness of
cephalosporins is uncertain.
Organism 1 Enterococcus faecalis
1. Enterococcus faecalis
M.I.C. RX
--------- ---
Ampicillin <=2 S
Gentamicin Synergy Screen <=500 S
Susceptible result indicates synergy is likely with a cell
wall active agent that is also susceptible
(e.g.ampicillin,penicillin,vancomycin)
Levofloxacin >4 R
Nitrofurantoin-Urine Only <=32 S
Tetracycline >8 R
Vancomycin 2 S
Micro Results:
02/01/25 13:10 Respiratory Culture - Final
Tracheal Aspirate Pseudomonas aeruginosa
S aureus-Methicillin Sensitive
Gram Stain - Final
02/01/25 18:43 Blood Culture - Preliminary
Blood/Venous No Growth in 72 hours- Final report to follow
02/01/25 13:21 Blood Culture - Preliminary
Blood/Venous No Growth in 72 hours- Final report to follow
02/01/25 09:58 Urine Culture - Final
Urine Enterococcus faecalis
Aerococcus Species
02/01/25 13:23 Influenza Types A & B (ROMMEL) - Final
Nasal Swab Negative for Influenza A & B, NAAT
Negative results must be combined with clinical observations
and patient history.
Nucleic Acid Amplification test (NAAT)performed on the
[employer]st platform.
[2025-02-05] MEDS: FLAGYL 500 MG 100 IV ×2 (12:04→19:26)
[2025-02-05] MEDS: DILAUDID 1 MG IV ×2 (13:38→20:58)
--- NOTE | 2025-02-05 14:03 | PTCARENOTE ---
patient reassessed, prn pain medication administered per NOV. bladder scan post void as per work list. Hand Sign Writer updated, salazar placed. patient remains combative with all care.
--- NOTE | 2025-02-05 15:07 | CM ---
Peg, trach, hospice consult, 1:1 monitoring. Discharge Plan of Care: TBD.
--- NOTE | 2025-02-05 15:14 | HOSPNOTE ---
Met with spouse and discussed hospice and the philosophy. At this time we will continue with treatment. I will call spouse tomorrow to follow up after spouse speaks with daughter.
--- NOTE | 2025-02-05 15:28 | PTCARENOTE ---
patient reassessed, remains agitated with care, but less so than this am. rectal trumpet leaking, stool too thick. fecal pouch applied. trach suctioned for large amount secretions. spouse met with hospice, updated spouse on plan of care. she is not
ready for hospice, she stated to this proposal writer, 'I will talk to him and he will go to rehab to get stronger'. advised spouse that patient exhibits increased discomfort, verbal and non verbal pain cues and that prn doses dilaudid have been administered
for patient comfort.
--- NOTE | 2025-02-05 15:54 | PN.CDI ---
CDI
- -
CDI:
Physician Documentation Request
Admit Date: 01/29/25 15:02
Dear Doctor Raheem,
Patient admitted for hemoptysis.
02/05 Mid Level Practitioner PN: 'Acute respiratory failure, at baseline s/p tracheostomy on trach collar...In view of hemoptysis, he was switched to Shiley 6.0 cuffed tracheostomy tube and was placed on mechanical ventilation.
- 01/31, patient was weaned to pressure support and then subsequently to trach collar all day. He started to get tired towards the end of the day and was switched back to mechanical ventilation. on AM of 02/01, he was back on pressure support 5 x 5'
01/31 PCN: 'sedated on Propofol 50mcg and Fentanyl 100 mcg; Shilley # 6 ; Vent 16/+5/400/30%'
Please clarify the type of respiratory failure:
Hypoxic
Hypercapnic
Other
Use of terms such as suspected, likely, concern for, or probable (associated with a specific diagnosis that is being evaluated, monitored, or treated as if it exists) are acceptable and can be coded in the inpatient setting, when documented at the
time of discharge.
Thank you,
Lilliam Nolan RN, BSN
CDI Specialist
Available via [employer] text
Please use your independent medical judgment in providing your response.
[2025-02-05] MEDS: DUONEB 3 ML INH ×2 (16:00→20:12)
[2025-02-05] MEDS: VANCOCIN 200 IV (17:38)
--- NOTE | 2025-02-05 17:59 | PTCARENOTE ---
fecal pouch leaking large amount stool. d/w radiosonde specialist, orders received. reviewed with patient and spouse plan to insert fms. when patient asked he shook his head yes, and when asked if he wanted additional pain medication prior to procedure again
he shook his head yes. patient spouse then interjected 'Lets hold off, don't give him anything'. patient then deferred to his spouse. fecal management system placed
[2025-02-05] MEDS: SODIUM CHLORIDE 3% FOR INHALATION 1 VIAL INH (20:12)
[2025-02-06] VITALS (15 sets, daily range): BP systolic 115–138; BP diastolic 71–96; PULSE 93; O2SAT 98; BMI 18.1
--- NOTE | 2025-02-06 01:19 | PTCARENOTE ---
Pt received start of shift. HR SR/ST on telemetry. Family left bedside, pt by self - pt removed fms. Pt cleaned, and new system in place. Trach in place w/ trach collar O2 delivery. Suctioning PRN. Tube feeding Jevity 1.5 at 55mL/hr.
[2025-02-06] MEDS: ROBINUL 1 MG TUBE (04:13)
[2025-02-06] MEDS: STERILE WATER FOR INJECTION 10 ML IV ×3 (04:39→21:17)
[2025-02-06] MEDS: ROXICODONE TUBE (04:39)
[2025-02-06] MEDS: MAXIPIME 2000 MG IV ×3 (04:39→21:17)
[2025-02-06] MEDS: ROXICODONE 15 MG TUBE ×5 (04:51→21:25)
[2025-02-06] MEDS: VANCOCIN 200 IV ×2 (05:47→17:11)
[2025-02-06 05:52] LABS: Venous Blood Gas B.E. 8.8 mmol/L (-4 to +4); Venous Blood Gas HCO3 32.8 mmol/L (22-27); Venous Blood Gas pCO2 42 mmHg (35-48); Venous Blood Gas pO2 120 mmHg (30-50)
[2025-02-06 05:57] LABS: Hemoglobin 8.4 g/dL (13.0-18.0); Mean Corp Hgb Conc. 33.6 g/dL (33.0-37.0); Mean Corpuscular Hgb 30.8 pg (27.0-31.0); Mean Corpuscular Volume 91.6 fL (80.0-94.0); Mean Platelet Volume 9.3 fL (7.4-10.4); Platelet Count 291 10^3/uL (130-400); Red Blood Cell Count 2.73 10^6/uL (4.70-6.10); Red Cell Dist. Width 13.7 % (11.5-14.5); White Blood Cell Count 6.2 10^3/uL (4.8-10.8)
[2025-02-06 06:23] LABS: Blood Urea Nitrogen 21 mg/dl (9-20); Calcium 7.8 mg/dl (8.4-10.2); Carbon Dioxide 32 mmol/L (22-30); Chloride 98 mmol/L (98-107); Estimated Creatinine Clearance 94 ml/min; Glucose 111 mg/dl (70-99); Magnesium 1.8 mg/dl (1.6-2.3); Phosphorus 3.3 mg/dl (2.5-4.5); Potassium 3.6 mmol/L (3.5-5.1); Sodium 133 mmol/L (135-145); eGFR > 60.00
--- NOTE | 2025-02-06 06:35 | PTCARENOTE ---
Pt self removed FMS. Large clot followed. Urine turning tea color. LICENSED TAX CONSULTANT aware.
[2025-02-06] MEDS: SODIUM CHLORIDE 3% FOR INHALATION 1 VIAL INH ×2 (07:33→20:01)
[2025-02-06] MEDS: DUONEB 3 ML INH ×2 (07:33→20:01)
[2025-02-06] MEDS: DELTASONE 30 MG TUBE (08:02)
[2025-02-06] MEDS: MIRALAX TUBE (08:04)
[2025-02-06] MEDS: ROBITUSSIN 200 MG TUBE ×4 (08:04→21:19)
[2025-02-06] MEDS: LIDOCAINE 4% PATCH 1 PATCH TOPICAL (08:04)
[2025-02-06] MEDS: PREVACID 30 MG TUBE (08:04)
[2025-02-06] MEDS: ATIVAN 0.5 MG TUBE (08:05)
[2025-02-06] MEDS: FLAGYL 500 MG 100 IV ×2 (08:06→21:18)
--- NOTE | 2025-02-06 08:43 | W.PN.HOSP.TC ---
Today's Communication/Plan
-
Continue vancomycin, cefepime, metronidazole
Continue suctioning.
Hospice discussions.
Tylenol for fever, and optimal pain management.
Delirium precautions.
Assessment / Plan
Assessment / Plan
Assessment-
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
bleed from the tumor site.
Plan-
Hemoptysis-
Massive, with acute blood loss anemia.
CT PE protocol negative for pulmonary embolism. ENT removed packing on 01/30. No bleeding source identified.
Weaned off of ventilator on 01/31. Through 01/31 to 02/02-patient tolerated intervals of trach collar for 8 to 12 hours.
S/p 24 hours on trach collar without mechanical ventilation. SpO2 goal 88 to 94% with underlying COPD.
Chest x-ray shows no evidence of active cardiopulmonary disease, left apical hemithorax is limited in evaluation because of patient's position.
S/p discontinuation of tranexamic acid x 2 days. Last dose of TXA on 02/02 at 2 PM.
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 Reviewed with my supervising provider Dr. Hairston.
[place] to reduce the clot burden.
Avoid any form of anticoagulation.
Appreciate ENT, and photographic plate maker inputs.
Fever
Possibly inflammatory secondary to malignancy versus hypercoagulability versus infection from aspiration.
Trach secretions positive for Pseudomonas and Staph aureus. Staph aureus - MSSA.
Blood cultures X 2 - no growth for 72 hrs.
Urine cultures positive for Enterococcus species, sensitive only to vancomycin and cefepime-Asymptomatic bacteruria.
Appreciate ID inputs. Added metronidazole to the current regimen, last recorded fever spike was on 02/02
Chest x-ray-no significant change,
Blood cultures x 2-negative. Flu and COVID testing-negative.
Currently patient on IV cefepime-day 4 today (started on 02/01). Vancomycin- day 4, metronidazole day 2.
Brief episode of acute delirium-
Sundowning versus ICU induced delirium, recurrent
On Zyprexa and delirium precautions
Continue delirium precautions, one-to-one as needed, use restraints with caution
Acute blood loss anemia-
Hemoglobin 8.5 upon arrival, s/p 1 unit of blood transfusion.
Serial H&H's, and monitor for any acute blood loss
Transfusion if Hb less than 8.
Currently hemoglobin remained stable.
Pulmonary nodule-6 mm, emphysema-as noted on CAT scan
Unclear if patient has a diagnosis of COPD.
[id number] of smoking history recently quit smoking about 2 months ago after diagnosis of basal cell tongue cancer.
[facility]about [facility] recommends outpatient follow-up for COPD evaluation.
History of squamous cell carcinoma, oral cavity-s/p chemoradiation.
[facility]
Patient's family also wants a close ENT follow-up within the [facility] system along with you pending ENT.
Will provide local ENT referral.
Hypokalemia-
Resolved. Trend potassium levels
Replete as needed.
Hypomagnesemia-
Resolved. Trend magnesium levels.
Replete as needed.
Tracheostomy tube -
Previously on trocar 8, changes to cannula twice a day.
Currently on Shiley 6.0, ENT plans to change back to trocar 8 at the time of discharge.
GI prophylaxis-
Lansoprazole
Chronic pain syndrome-opioid dependence-
Continue home medication regimen
On 135 MME per day.
Cachexia-
Secondary to malignancy.
BMI at 18.1. currently on Jevity 1.5, 3 times a day.
Ongoing discussions about transformation of care to hospice.
Hospice consult involved, oncology also recommends hospice at this point of time.
Will continue hospice discussions through weekend.
DVT prophylaxis-sequential compression device
CODE STATUS-
Limited DNR.
Anticipated Discharge: > 48 hours
Subjective/Interval History
-
Date of Service: February 06, 2025
Patient has no complaints. Overnight he has been mildly agitated, had 2 episodes of loose stools, and received suction throughout night. His secretions worsened
Objective Data
-
Labs:
Laboratory Results
02/06/25
05:44
WBC 6.2
Hgb 8.4 L D
Hct 25.0 L
Plt Count 291
Sodium 133 L
Potassium 3.6
Chloride 98
Carbon Dioxide 32 H
BUN 21 H
Creatinine 0.4 L
Glucose 111 H
Calcium 7.8 L
Vital Signs:
Vital Signs
Temp Pulse Resp BP Pulse Ox
99.6 F 87 20 122/71 98
02/06/25 07:44 02/06/25 07:35 02/06/25 07:35 02/06/25 06:00 02/06/25 07:35
I&O
02/05/25 02/06/25 02/07/25
06:59 06:59 06:59
Intake Total 1110 / 1190 2537 / 2537
Output Total 1100 / 1100 1800 / 1800
Balance 10 737 / 737
Review of Systems
-
Unable to obtain full review of systems at this time due to: Other (Tracheostomy, no [place] valve to speak)
History Source: Patient
Constitutional: Reports No Symptoms
Respiratory: Reports Cough, Trouble Breathing and Other (Copious secretions.)
Cardiac: Reports No Symptoms
Abdomen/GI: Reports No Symptoms
Genitourinary: Reports No Symptoms
Musculoskeletal: Reports No Symptoms
Neuro: Reports No Symptoms
Hematologic / Lymphatic: Reports No Symptoms
Allergy / Immunology: Reports No Symptoms
Physical Exam
-
General: Respiratory Distress, Cachectic and Other (Copious amounts of secretions.)
HEENT: Normocephalic, Atraumatic and Moist Mucous Membranes
Respiratory: Wheezes (Across all lung lobes), Rhonchi and Crackles (Across all lung lobes); Negative Rales
Cardiac: Regular Rhythm and S1/S2; Negative Murmur, Rub or Gallop
GI: Soft, Nontender, Nondistended, Normal Bowel Sounds and Other (PEG tube in place, no drainage, no discharge.)
Musculoskeletal: No Clubbing, No Cyanosis, Edema, Right Lower Extrem (Nonpitting edema) and Edema, Left Lower Extrem (Nonpitting edema)
Skin: Warm
Neuro: AO x 3 and No Motor Deficits
Hematologic / Lymphatic: Other (Port on the left chest wall in place-no erythema, discharge, edema.)
Psych: Confused and Anxious
Data Reviewed
-
Labs: Labs Reviewed by me and Discussed with Physician
--- NOTE | 2025-02-06 09:19 | W.PN.ID1 ---
Date of Service
Date of Service: February 06, 2025
Today's Communication
- continue cefepime - day 4
- continue vancomycin - day 1
- continue metronidazole - day 2
- appreciate oncology input, agree that hospice is indicated at this time and expect remitting relapsing infections will ultimately be the cause of his which is a major cause of in oncology patients; if patient transitions to hospice
recommend stopping antibiotics and treating any fevers with PRN tylenol
Assessment / Plan
Intermittent Fevers
Tracheitis
Possible UTI
Hemoptysis
SCC of the oral cavity-s/p chemoradiation
Reported allergy to penicillin - rash
- relapse of fevers - possibly improving
- blood cultures x2 no growth to date
- tracheal aspirate - Pseudomonas and MSSA
- UA with mild pyuria and urine culture notable for 100K amp sensitive E faecalis; 20K aerococcus is not sufficient concentration to warrant treatment
- continue cefepime - day 4
- continue vancomycin - day 1
- continue metronidazole - day 2
- appreciate oncology input, agree that hospice is indicated at this time and expect remitting relapsing infections will ultimately be the cause of his which is a major cause of in oncology patients; if patient transitions to hospice
recommend stopping antibiotics and treating any fevers with PRN tylenol
Chief Complaint
-: UTI and Other (tracheitis)
Subjective / Review of Systems
fever curve appears to have improved
bp stable without pressors
Vital Signs / Physical Exam
Vital Signs
Vital Signs
Temp Pulse Resp BP Pulse Ox
99.6 F 87 20 122/71 98
02/06/25 07:44 02/06/25 07:35 02/06/25 07:35 02/06/25 06:00 02/06/25 07:35
Physical Exam
Constitutional: Acutely Ill and Chronically Ill
Head: Other (neck in flexed position)
Cardiovascular: Regular Rate
Pulmonary: Symmetric and Non Labored
Gastrointestinal: Non Distended
Objective Data
Lab Data
Lab Results
02/06/25 05:44
02/06/25 05:44
PT 15.3 Sec (11.4-14.6) H 01/29/25 16:44
INR 1.16 01/29/25 16:44
APTT 25.4 Sec (23.4-35.0) 01/29/25 16:44
Estimated Creat Clear 94 ml/min 02/06/25 05:44
Total Bilirubin 0.5 mg/dl (0.2-1.3) 02/03/25 03:20
AST 14 U/L (17-59) L 02/03/25 03:20
ALT 12 U/L (0-50) 02/03/25 03:20
Alkaline Phosphatase 74 U/L (38-126) 02/03/25 03:20
Most recent labs reviewed.
Micro Results:
02/01/25 18:43 Blood Culture - Preliminary
Blood/Venous No Growth in 4 days- Final report to follow
02/01/25 13:21 Blood Culture - Preliminary
Blood/Venous No Growth in 4 days- Final report to follow
02/01/25 13:10 Respiratory Culture - Final
Tracheal Aspirate Pseudomonas aeruginosa
S aureus-Methicillin Sensitive
Gram Stain - Final
02/01/25 09:58 Urine Culture - Final
Urine Enterococcus faecalis
Aerococcus Species
02/01/25 13:23 Influenza Types A & B (ROMMEL) - Final
Nasal Swab Negative for Influenza A & B, NAAT
Negative results must be combined with clinical observations
and patient history.
Nucleic Acid Amplification test (NAAT)performed on the
[employer] platform.
--- NOTE | 2025-02-06 09:35 | W.PN.PUL3 ---
Today's Communication / Plan
-
Antibiotics per ID
Continue trach collar with FiO2 28%
Ventilator at night only if needed for increased WOB, increased secretions with inability to effectively suction, acute hypoxia or AMS; if he is altered then check stat blood gases to assess pH + pCO2
Once secretions improve then would perform Passy-Marilee valve trial per [employer]INE [employer]ENDER + RT
Continue to hold scopolamine patch given the thickness of his secretions
Frequent suctioning through tracheostomy
Continue DuoNebs + nebulized 3% with prn doses in between
Guarded prognosis � hospice appropriate, although he is much more awake, alert and oriented today
PT/OT
Continue IMU level of care
Pulmonary service will continue to briefly follow along
Assessment
-
#1. Hemoptysis - now resolved s/p packing via ENT + nebulized TXA Suspect this was originating from upper airway likely the tumor bed. S/p packing by ENT service 01/29, packing removed 01/30.
- Packing removed 01/30, no further bleeding noted. ENT service on case.
- Serial H&H stable.
- Avoid antiplatelets and anticoagulants for now
- Clotted dark blood noted in nares, started prn [place] to help clear nasal passage
- Last day of nebulized TXA on 02/02 --> may need to be resumed if recommended by ENT or if hemoptysis recurs
#2. Acute hypoxic respiratory failure, at baseline s/p tracheostomy on trach collar.
- Patient at baseline wears a cough flex Portex 8.0 tracheostomy tube with trach collar. In view of hemoptysis, he was switched to Shiley 6.0 cuffed tracheostomy tube and was placed on mechanical ventilation.
- 01/31, patient was weaned to pressure support and then subsequently to trach collar all day. He started to get tired towards the end of the day and was switched back to mechanical ventilation. on AM of 02/01, he was back on pressure support 01/26
- As of 02/02, tolerating trach collar after being on pressure support via vent overnight
- He did get very agitated on the evening of 02/02, likely due to owning with acute delirium, and was placed back onto the ventilator. He's back on trach collar as of the morning of 02/03 with no need for vent since evening of 02/02-02/03
- Given his thick secretions, DuoNebs + nebulized 3% BID started with frequent tracheal suctioning as needed
- Speech pathology consulted but patient unable to try Passy-Marilee trials due to the degree of his tracheal secretions. This will be an ongoing assessment.
-- Continue PT/OT
- Aspiration precautions
- Continue with trach collar and monitor respiratory status, SpO2 and work of breathing, and as long as he is saturating >90% and not in respiratory distress would keep on trach collar
- If he does become tachypneic, then place onto the ventilator on pressure support with PS: 5, CPAP: 5
- Blood gas checked on evening of 02/04 while on trach collar all day, and showed stable pCO2 at 42 with pH 7.46.
- Considering he has not required the ventilator since overnight on 02/02 - 02/03/2025, I reached out to ENT, spoke with Dr. Perrin who feels it is best to keep patient with his current tracheostomy(his home trach is: cuffless Portex 8.0 and is
present at bedside), which is cuffed in the event that he does need the ventilator. If patient were to continue improving, we can always exchange his tracheostomy at a later date.
- Patient is on prednisone as an outpatient, likely to reduce swelling from his head and neck cancer - resumed prednisone on 02/02 with slow taper (appears he has been on prednisone 30 mg prescribed him in mid December 2024, and prior to that was on 20
mg daily the month prior, as per pharmacist review of his outpatient medical records during rounds on 02/02)
- Given his poor functional status, he is not a candidate for additional chemotherapy per oncology. He is hospice appropriate. This will be an ongoing discussion
#3. Fever -due to Pseudomonas pneumonia
- His secretions coming out of his tracheostomy site are foul-smelling and it is positive for hamilton-sensitive Pseudomonas aeruginosa + MSSA
- He was started on cefepime on 02/01
- Follow-up blood cultures collected 02/01/2025 which shows NGTD
- Of note, urine culture also positive for Enterococcus faecalis + Aerococcus species--> patient currently on cefepime + IV vancomycin and ID added IV Flagyl on 02/05. Recommend to change antibiotics to Zosyn per the microbial sensitivities. He
does have a penicillin allergy.
- Will ultimately defer Abx to ID
#4. Emphysema with 6 mm lung nodule.
- Reported significant secretions at baseline, ?Chronic bronchitis.
- Extensive smoking history and emphysema on imaging. Suspect underlying COPD
- Continue DuoNebs +3% BID with prn doses in between
- Given that his secretions are thick, scopolamine patch discontinued on 02/04
- Depending on patient's clinical course, will need further workup including PFTs and serial CT surveillance as outpatient - doubtful this will occur given his clinical cource as he is heading towards hospice
#5. History of squamous cell carcinoma, tongue, status post chemotherapy and radiation.
- Patient is s/p tracheostomy as well as PEG tube
- Follows up with Dr. Galvan at [facility] as well as [facility] --> oncology consulted on 02/02
- Patient was scheduled to start a second line chemotherapy on 01/29 - was sent to emergency room for hemoptysis
#4. H/O Smoking, more then 40 pack year smoking history
-Patient quit in 05/2024
Continue lansoprazole for GI prophylaxis
SCDs for DVT prophylaxis
Guarded prognosis � goals of care discussion warranted here. wants the patient to continue with medical treatment to get better so that she he can resume treatment for his tongue SCC. Per oncology, functional status is too poor for
chemotherapy to resume. Radiation therapy is an option although unclear if he has the strength to make it to future treatment appointments. He is hospice appropriate. On 02/04 he was saying that he wants to go home however unclear if he has
capacity to make his own decisions at this point. He is now lethargic as of 02/05
Pulmonary service will continue to briefly follow along. Of note, patient is hospice appropriate but has not officially been transitioned to hospice yet. This will be an ongoing discussion.
Data:
CTA Neck: 01/2025: 1. New 1.8 cm irregular shaped air-filled cavity in the right side of the oropharynx which could be secondary to interval surgical resection of tongue carcinoma or tumor necrosis.
2. Irregular shaped regions of enhancing soft tissue in the left oropharynx and posterior right oropharynx and stock fitter space. Diagnostic possibilities are (1) tumor infiltration or (2) post therapy edema.
3. 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
4. Tracheostomy tube in place.
5. Moderate bilateral upper lobe emphysema.
6. 6 mm solid pulmonary nodule in the right upper lobe which could be a pulmonary metastasis or infectious/inflammatory pulmonary nodule.
7. Severe multilevel cervical discogenic degenerative disease with multilevel disc-osteophyte complexes causing mild spinal cord compression and central canal stenosis.
8. Less than 50% diameter stenosis in both internal carotid arteries.
CT-PE 01/2025: No evidence of central pulmonary embolism.
Changes of emphysema again seen. No findings in the lung parenchyma bilaterally to suggest hemorrhage.
Mild pericardial thickening versus tiny pericardial effusion, decreased.
Small portion of the included abdomen significantly obscured by beam hardening artifact from the patient's bilateral upper extremities. At least one small left renal cyst.
ECHO 04/2024: Normal left ventricular size, wall thickness and systolic function. No regional
wall motion abnormalities are seen. LV ejection fraction is 60-65% by Coto's
method of discs. Normal diastolic function.
Normal right ventricular size and function.
Trace tricuspid regurgitation. Estimated pulmonary artery pressure of 20-25
mmHg, assuming a right atrial pressure of 3 mmHg.
No significant valvular disease.
No prior study available for comparison.
Total time spent today was 39 minutes for this encounter. Time includes reviewing laboratory test/imaging results, reviewing pertinent medical records, obtaining and reviewing medical history, performing an appropriate exam, ordering medications,
tests and procedures. Time also includes documentation of this encounter, coordinating patient care and communicating with other healthcare professionals. Total time does not include separately billed tests performed on this date of service.
Subjective Data
-
Date of Service:
Date of Service: February 06, 2025
Chief Complaint: Pulmonary Follow Up
Subjective:
Patient was seen and evaluated today at bedside. Patient's brother, Sameer, was at bedside and all questions were answered. The patient appears much more awake, alert and lively this morning. Heart rate currently 100, BP 125/86 and saturating 99% on
trach collar at 28% FiO2. Patient still has an increased amount of secretions coming from trachea but they are being suctioned. Patient currently feels okay, denying chest pain, COHEN, abdominal pain.
Review of Systems
General: Other (Negative unless mentioned above)
Objective Data
Data Reviewed
Vital Signs / I&O / Oxygen:
Vital Signs
Temp Pulse Resp BP Pulse Ox
99.6 F 87 20 122/71 98
02/06/25 07:44 02/06/25 07:35 02/06/25 07:35 02/06/25 06:00 02/06/25 07:35
Intake and Output
02/05/25 02/06/25 02/07/25
06:59 06:59 06:59
Intake Total 1110 / 1190 2537 / 2537
Output Total 1100 / 1100 1800 / 1800
Balance 737 / 737
SaO2 [CPAP/PSV] 97
SaO2 [A/C] 95
SaO2 98
Nasal Cannula flow liters per 3
minute
Physical Exam
General: Respiratory Distress (negative), Comfortable, Chills (negative) and Sweats (negative)
HEENT: Normocephalic, Anicteric and Other (Tracheostomy)
Cardiovascular: S1-S2 and Peripheral Edema (negative)
Respiratory: Wheeze (negative), Crackles (Bilaterally in the anterior lung frederick), Rhonchi (Bilateral), Non-Labored Respirations and Stridor (negative)
GI: Soft, Non Distended, Non Tender and Normal Bowel Sounds
Neurology: AO x 3 and Tremors (negative)
Skin: Warm, Dry, Cyanosis (negative) and Jaundice (negative)
Labs/Micro/Reports
Lab Data
02/06/25 05:44
02/06/25 05:44
Microbiology
02/01/25 18:43 Blood/Venous Blood Culture - Preliminary
No Growth in 4 days- Final report to follow
02/01/25 13:21 Blood/Venous Blood Culture - Preliminary
No Growth in 4 days- Final report to follow
02/01/25 13:10 Tracheal Aspirate Respiratory Culture - Final
Pseudomonas aeruginosa
S aureus-Methicillin Sensitive
02/01/25 13:10 Tracheal Aspirate Gram Stain - Final
02/01/25 09:58 Urine Urine Culture - Final
Enterococcus faecalis
Aerococcus Species
--- NOTE | 2025-02-06 12:34 | HOSPNOTE ---
Spoke with spouse about hospice and the spouse at this time states that she wants to try rehab when the patient is more stable. The spouse is still open to continue to talk about hospice. The plan is to re assess on Sunday and speak with spouse
again.
--- NOTE | 2025-02-06 15:56 | CM ---
Hospice team discussed services again. prefers patient go to inpatient therapy after discharge. Hospice will discuss with again on 02/09/25. Therapy recommended SNF vs Acute. [facility] preference for SNF. Will send
referral.
--- NOTE | 2025-02-06 15:58 | PHA.VAN.FU ---
Vancomycin Assessment / Plan
- Assessment
Renal Function: Stable
WBC's are: WNL
In the past 24 hrs, patient has been: Afebrile
Concomitant Antimicrobials: cefepime
- Dosing Plan
Continue: Vanc 1000mg Q12H (adjusted 02/05)
- Monitoring Plan
No level(s) ordered at this time: consider levels in next few days
- Follow Up
Pharmacy will continue to follow.
Vancomycin Follow UP
- -
Patient Age: 69
Patient Sex: Male
Vancomycin Day #: 5
Indication: Genito-Urinary Tract
Requesting Provider: Ronni
Pertinent Antimicrobial Allergies:
penicillins - rash
Height / Weight:
Height 5 ft 9 in
Actual Weight 55.6 kg
IBW in k.7
Pertinent Past Medical History: BMI ~18, Squamous cell carcinoma of tongue (Trach/PEG)
- Vital Signs / Lab Results
Temp Pulse Resp BP Pulse Ox
99.2 F 87 20 122/71 99
02/06/25 15:12 02/06/25 07:35 02/06/25 07:35 02/06/25 06:00 02/06/25 07:35
Lab Results - Hematology
02/04/25 02/05/25 02/06/25
03:21 04:41 05:44
WBC 6.1 6.9 6.2
Lab Results - Chemistry
02/04/25 02/05/25 02/06/25
03:21 04:41 05:44
BUN 24 H 24 H 21 H
Creatinine 0.4 L 0.4 L 0.4 L
Estimated Creat Clear 95 95 94
Microbiology Results
02/01/25 13:21 Blood Culture - Final
Blood/Venous No Growth - Final Report
02/01/25 18:43 Blood Culture - Preliminary
Blood/Venous No Growth in 4 days- Final report to follow
02/01/25 13:10 Respiratory Culture - Final
Tracheal Aspirate Pseudomonas aeruginosa
S aureus-Methicillin Sensitive
Gram Stain - Final
Therapeutic Drug Monitoring
Vancomycin Peak 15.8 ug/ml (18-26) L 02/04/25 20:47
Vancomycin Trough 8.0 ug/ml (5-20) 02/05/25 04:41
--- NOTE | 2025-02-06 18:11 | PTCARENOTE ---
Pt received in bed @ 0700. Pt restless. Turning in bed. Attempting to get up. Pulling at lines and wires. 1:1 supervision maintained for safety. Communicating with writing. Asking where his clothes is, where is is. Soon will ask the same
question unable to remember asking briefly before. Sinus rhythm/Sinus tach on ekg monitor tech. MAP > 65 without pressors. Palpable pedal pulses. 28% trach collar. SaO2 99%. Coarse rhonchi breath sounds. Copious thick parnell pungent secretions. Pt
requesting suction, but expectorating more efficiently than able to remove with suctioning. Deep breathing and coughing encouraged. Jevity 1.5 @ 55 ml/hr with 25ml/hr water flush. Prosource administered. Wells catheter draining tea colored; clearing
up to yellow at end of shift. Pt able to sit oob in chair for 2 hours today. (R) SubQ port with KVO and scheduled ABX.
[2025-02-06] MEDS: ATIVAN 1 MG IV (21:19)
[2025-02-07] VITALS (12 sets, daily range): BP systolic 114–154; BP diastolic 72–97; BMI 18.0
[2025-02-07] MEDS: TYLENOL ORAL SOLUTION 650 MG TUBE (01:00)
[2025-02-07] MEDS: ROXICODONE 15 MG TUBE ×6 (01:00→20:11)
[2025-02-07] MEDS: ATIVAN 1 MG IV ×4 (04:20→20:12)
[2025-02-07] MEDS: MAXIPIME 2000 MG IV ×3 (04:32→20:12)
[2025-02-07] MEDS: STERILE WATER FOR INJECTION 10 ML IV ×3 (04:32→20:12)
[2025-02-07 04:35] LABS: Hematocrit 27.7 % (39.0-52.0); Hemoglobin 9.3 g/dL (13.0-18.0); Mean Corp Hgb Conc. 33.6 g/dL (33.0-37.0); Mean Corpuscular Hgb 30.5 pg (27.0-31.0); Mean Corpuscular Volume 90.8 fL (80.0-94.0); Platelet Count 350 10^3/uL (130-400); Red Blood Cell Count 3.05 10^6/uL (4.70-6.10); Red Cell Dist. Width 13.9 % (11.5-14.5); White Blood Cell Count 6.4 10^3/uL (4.8-10.8)
[2025-02-07 04:51] LABS: Blood Urea Nitrogen 20 mg/dl (9-20); Calcium 8.3 mg/dl (8.4-10.2); Carbon Dioxide 32 mmol/L (22-30); Chloride 96 mmol/L (98-107); Estimated Creatinine Clearance 93 ml/min; Glucose 95 mg/dl (70-99); Potassium 3.8 mmol/L (3.5-5.1); Sodium 136 mmol/L (135-145); eGFR > 60.00
[2025-02-07] MEDS: VANCOCIN 200 IV ×2 (05:09→17:26)
--- NOTE | 2025-02-07 06:17 | PTCARENOTE ---
Addendum entered by Neetu Murguia RN 02/07/25 06:25:
Early in evening Pt had complaint of needing to pee, education given about Wells. Tech went to check Wells was not kinked, urine began to come out around Wells. RN told and Wells flushed and balloon checked. Pt has not had any other events of
leaking at this time.
Original Note:
Over night patient having periods of anxiousness and agitation needing redirection frequently. Pt able to write clearly but what is written does not always make sense. Pt continued on TF, appears to be tolerating well. Pt TF and adaptor changed. Pt
maintaining spo2 94% and above, Pt is non compliant with trach collar and continues to take it off or move to other side. Pt having heavy secretion leaving area always moist. Right SQ port dressing changed by VAT due to secretions soaking and
loosening it. Assessment care and vitals as charted.
[2025-02-07] MEDS: SODIUM CHLORIDE 3% FOR INHALATION 1 VIAL INH ×2 (07:35→19:31)
[2025-02-07] MEDS: DUONEB 3 ML INH ×3 (07:35→19:31)
[2025-02-07] MEDS: MIRALAX 17 GRAMS TUBE (08:36)
[2025-02-07] MEDS: DELTASONE 20 MG TUBE (08:37)
[2025-02-07] MEDS: PREVACID 30 MG TUBE (08:37)
[2025-02-07] MEDS: FLAGYL 500 MG 100 IV ×2 (08:37→20:15)
[2025-02-07] MEDS: ROBITUSSIN 200 MG TUBE ×3 (08:37→17:26)
[2025-02-07] MEDS: ATIVAN 0.5 MG TUBE (08:37)
[2025-02-07] MEDS: LIDOCAINE 4% PATCH 1 PATCH TOPICAL (08:37)
[2025-02-07] MEDS: NSS (PRESERVATIVE FREE) 0.5 ML IV ×2 (09:59→15:36)
--- NOTE | 2025-02-07 10:13 | PTCARENOTE ---
Patient with increased agitation and pulling at cords and trach. When patient asked to write down what he needs on paper he wrote 'chicken toaster bread'. Patient educated that he gets tube feeds through his PEG tube and that he is NPO. 1:1 at
bedside. at bedside. PRN IV ativan given per MAR.
--- NOTE | 2025-02-07 10:34 | W.PN.HOSP.TC ---
Today's Communication/Plan
-
Continue broad-spectrum IV antibiotics
Trend CBC
Monitor O2 status
Delirium precautions
Ongoing GOC
Assessment / Plan
Assessment / Plan
#Ventilator associated pneumonia
-Status post VDRF due to massive hemoptysis, developed fevers with purulent green sputum
-Respiratory cultures growing MSSA and Pseudomonas aeruginosa, was started on vancomycin/cefepime/Flagyl
-Over the last few days has remained stable at respiratory baseline, no hypoxemia, fevers improving
-Infectious disease following, currently without leukocytosis and fevers as of morning 02/07
-Will continue with broad-spectrum IV antibiotics, trend CBC and temperature curve
-Planning for at least 7 days of antibiotics, ID recs appreciated on duration
-SpO2 goal 90% or greater on trach collar
-Planning for home trach collar with Passy-[place] valve when improved
#Status post VDRF
#Massive hemoptysis
#ABLA s/p 1 unit PRBC
#SCC of tongue base
-Had massive hemoptysis requiring intubation for airway protection, secondary to bleeding tongue base SCC
-Received 1 unit of PRBC for bleeding, status post course of TXA, CBC has been stable since
-No longer candidate for chemotherapy due to ECOG status and comorbidities
-Consideration for palliative XRT to temporize bleeding
-Trend CBC daily and monitor for recurrent
#Acute TME
#Hospital delirium
-Multifactorial change in mental status due to underlying infection, critical disease, delirium
-Has required one-to-one, as needed Zyprexa
-Continue with PRNs and delirium precaution
-Maintain one-to-one for now
#Pulmonary nodule (6 mm)
#Emphysema on CT scan
#Former smoker
-Likely with underlying COPD though no signs of flare or bronchospasm throughout this hospital stay
-Noted to have [id number] smoking history, stopped roughly 2 months after diagnosis of squamous cell tongue cancer
-If condition improves to point of discharge will consider standing LABA v LAMA maintenance therapy
-Plan for OP pulmonology for PFTs and repeat CT if his clinical course permits this
-SpO2 goal 88 to 94%
#S/P Tracheostomy tube
#S/P PEG tube
-Secondary to obstructive SCC at his tongue base as above
-Previously on trocar 8, changes to cannula twice a day.
-Currently on Shiley 6.0, ENT plans to change back to trocar 8 at the time of discharge.
-Planning for Passy-Marilee valve as above
-Continue with tube feedings as tolerated
-NPO ecxept ice chips
#Chronic pain syndrome
#Opioid dependence
-Continue home medication regimen
-On 135 MME per day.
#Cachexia
-Secondary to malignancy.
-BMI at 18.1. currently on Jevity 1.5, 3 times a day.
GI prophylaxis-Lansoprazole
DVT prophylaxis-SCDs
Diet-tube feeds with Jevity 1.5
CODE STATUS-limited DNR (no chest compressions)
GOC ongoing
Anticipated Discharge: > 48 hours
Subjective/Interval History
-
Date of Service: February 07, 2025
Seen and examined at the bedside. No acute events reported overnight. AFVSS on baseline via trach collar
Hemoglobin stable, no leukocytosis. No fevers overnight. Remains delirious
Unable to obtain ROS due to his delirium and inability to speak
Objective Data
-
Labs:
Laboratory Results
02/07/25
04:13
WBC 6.4
Hgb 9.3 L
Hct 27.7 L
Plt Count 350 D
Sodium 136
Potassium 3.8
Chloride 96 L
Carbon Dioxide 32 H
BUN 20
Creatinine 0.5 L
Glucose 95
Calcium 8.3 L
Vital Signs:
Vital Signs
Temp Pulse Resp BP Pulse Ox
99.4 F 97 26 136/81 96
02/07/25 07:55 02/07/25 10:00 02/07/25 10:00 02/07/25 10:00 02/07/25 10:00
I&O
02/06/25 02/07/25 02/08/25
06:59 06:59 06:59
Intake Total 2537 / 2617 2440 / 2440
Output Total 1800 / 1800 2600 / 2600 900 / 900
Balance 737 / 817 -160 / -160 -900 / -900
Review of Systems
-
Unable to obtain full review of systems at this time due to: Acuity and Patient Non-verbal
Physical Exam
-
General: Well Developed, No Apparent Distress, Appears Chronically Ill and Cachectic
HEENT: Normocephalic, Atraumatic, Moist Mucous Membranes, Tracheostomy Collar and Anicteric
Respiratory: Rales, Rhonchi and Non Labored Respirations; Negative Wheezes or Accessory Resp Muscle Use
Cardiac: Regular Rhythm and S1/S2; Negative Murmur or Gallop
GI: Soft, Nontender, Nondistended, Normal Bowel Sounds and Peg Tube
Musculoskeletal: No Clubbing, No Cyanosis and No Edema
Skin: Warm, Dry and Normal Turgor; Negative Rash
Neuro: Awake, Alert and Nonfocal/Grossly Intact; Negative Oriented or Tremors
Psych: Confused
Data Reviewed
-
Labs: Labs Reviewed by me and Discussed with Nurse
[2025-02-07] MEDS: ROBINUL 1 MG TUBE ×2 (11:42→20:11)
[2025-02-07] MEDS: ROXICODONE TUBE (11:52)
--- NOTE | 2025-02-07 12:24 | PHA.VAN.FU ---
Vancomycin Assessment / Plan
- Assessment
Renal Function: Stable
WBC's are: WNL
In the past 24 hrs, patient has been: Afebrile
Concomitant Antimicrobials: CEFEPIME
- Dosing Plan
Continue: 1000MG Q12H
- Monitoring Plan
Peak Level: 02/07 @2100
Trough Level: 02/08 @0530
- Follow Up
Pharmacy will continue to follow.
Vancomycin Follow UP
- -
Patient Age: 69
Patient Sex: Male
Vancomycin Day #: 6
Indication: Genito-Urinary Tract
Requesting Provider: Ronni
Pertinent Antimicrobial Allergies:
penicillins - rash
Height / Weight:
Height 5 ft 9 in
Actual Weight 55.3 kg
IBW in k.7
Pertinent Past Medical History: BMI ~18, Squamous cell carcinoma of tongue (Trach/PEG)
- Vital Signs / Lab Results
Temp Pulse Resp BP Pulse Ox
99.4 F 97 26 136/81 96
02/07/25 07:55 02/07/25 10:00 02/07/25 10:00 02/07/25 10:00 02/07/25 10:00
Lab Results - Hematology
02/05/25 02/06/25 02/07/25
04:41 05:44 04:13
WBC 6.9 6.2 6.4
Lab Results - Chemistry
02/05/25 02/06/25 02/07/25
04:41 05:44 04:13
BUN 24 H 21 H 20
Creatinine 0.4 L 0.4 L 0.5 L
Estimated Creat Clear 95 94 93
Microbiology Results
02/01/25 18:43 Blood Culture - Final
Blood/Venous No Growth - Final Report
02/01/25 13:21 Blood Culture - Final
Blood/Venous No Growth - Final Report
02/01/25 13:10 Respiratory Culture - Final
Tracheal Aspirate Pseudomonas aeruginosa
S aureus-Methicillin Sensitive
Gram Stain - Final
Therapeutic Drug Monitoring
Vancomycin Peak 15.8 ug/ml (18-26) L 02/04/25 20:47
Vancomycin Trough 8.0 ug/ml (5-20) 02/05/25 04:41
--- NOTE | 2025-02-07 15:30 | W.PN.PUL3 ---
Today's Communication / Plan
-
Antibiotics per ID
Continue trach collar with FiO2 21 to 28%
Ventilator at night only if needed for increased WOB, increased secretions with inability to effectively suction, acute hypoxia or AMS; if he is altered then check stat blood gases to assess pH + pCO2
Once secretions improve then would perform Passy-Garner valve trial per SENIOR BUSINESS CONSULTANT + RT
Continue to hold scopolamine patch given the thickness of his secretions
Increase Mucinex to 400 mg QID
Start cofflator
Frequent suctioning through tracheostomy
Continue DuoNebs + nebulized 3% with prn doses in between
Guarded prognosis � hospice appropriate, although he has been much more awake, alert and oriented since 02/06
PT/OT - will likely need skilled SNF vs acute rehab
Continue IMU level of care
Pulmonary service will continue to briefly follow along
Assessment
-
#1. Hemoptysis - now resolved s/p packing via ENT + nebulized TXA Suspect this was originating from upper airway likely the tumor bed. S/p packing by ENT service 01/29, packing removed 01/30.
- Packing removed 01/30, no further bleeding noted. ENT service on case.
- Serial H&H stable.
- Avoid antiplatelets and anticoagulants for now
- Clotted dark blood noted in nares, started prn [place] Yoder to help clear nasal passage
- Last day of nebulized TXA on 02/02 --> may need to be resumed if recommended by ENT or if hemoptysis recurs
#2. Acute hypoxic respiratory failure, at baseline s/p tracheostomy on trach collar.
- Patient at baseline wears a cough flex Portex 8.0 tracheostomy tube with trach collar. In view of hemoptysis, he was switched to Shiley 6.0 cuffed tracheostomy tube and was placed on mechanical ventilation.
- 01/31, patient was weaned to pressure support and then subsequently to trach collar all day. He started to get tired towards the end of the day and was switched back to mechanical ventilation. on AM of 02/01, he was back on pressure support 01/26
- As of 02/02, tolerating trach collar after being on pressure support via vent overnight
- He did get very agitated on the evening of 02/02, likely due to owning with acute delirium, and was placed back onto the ventilator. He's back on trach collar as of the morning of 02/03 with no need for vent since evening of 02/02-02/03
- Given his thick secretions, DuoNebs + nebulized 3% BID started with frequent tracheal suctioning as needed
- Start cofflator and increase Mucinex to 400mg QID
- Speech pathology consulted but patient unable to try Passy-Marilee trials due to the degree of his tracheal secretions. This will be an ongoing assessment.
- Continue PT/OT
- Aspiration precautions
- Continue with trach collar and monitor respiratory status, SpO2 and work of breathing, and as long as he is saturating >90% and not in respiratory distress would keep on trach collar
- If he does become tachypneic, then place onto the ventilator on pressure support with PS: 5, CPAP: 5
- Blood gas checked on evening of 02/04 while on trach collar all day, and showed stable pCO2 at 42 with pH 7.46.
- Considering he has not required the ventilator since overnight on 02/02 - 02/03/2025, I reached out to ENT, spoke with Dr. Perrin who feels it is best to keep patient with his current tracheostomy(his home trach is: cuffless Portex 8.0 and is
present at bedside), which is cuffed in the event that he does need the ventilator. If patient were to continue improving, we can always exchange his tracheostomy at a later date.
- Patient is on prednisone as an outpatient, likely to reduce swelling from his head and neck cancer - resumed prednisone on 02/02 with slow taper (appears he has been on prednisone 30 mg prescribed him in mid December 2024, and prior to that was on 20
mg daily the month prior, as per pharmacist review of his outpatient medical records during rounds on 02/02)
- Given his poor functional status, he is not a candidate for additional chemotherapy per oncology. He is hospice appropriate. This will be an ongoing discussion
#3. Fever -due to Pseudomonas pneumonia
- His secretions coming out of his tracheostomy site are foul-smelling and it is positive for hamilton-sensitive Pseudomonas aeruginosa + MSSA
- He was started on cefepime on 02/01
- Follow-up blood cultures collected 02/01/2025 which shows NGTD
- Of note, urine culture also positive for Enterococcus faecalis + Aerococcus species--> patient currently on cefepime + IV vancomycin and ID added IV Flagyl on 02/05. Recommend to change antibiotics to Zosyn per the microbial sensitivities. He
does have a penicillin allergy.
- Will ultimately defer Abx to ID
#4. Emphysema with 6 mm lung nodule.
- Reported significant secretions at baseline, ?Chronic bronchitis.
- Extensive smoking history and emphysema on imaging. Suspect underlying COPD
- Continue DuoNebs +3% BID with prn doses in between
- Given that his secretions are thick, scopolamine patch discontinued on 02/04
- Depending on patient's clinical course, will need further workup including PFTs and serial CT surveillance as outpatient - doubtful this will occur given his clinical cource as he is heading towards hospice
#5. History of squamous cell carcinoma, tongue, status post chemotherapy and radiation.
- Patient is s/p tracheostomy as well as PEG tube
- Follows up with Dr. Galvan at [facility] as well as [facility] --> oncology consulted on 02/02
- Patient was scheduled to start a second line chemotherapy on 01/29 - was sent to emergency room for hemoptysis
#4. H/O Smoking, more then 40 pack year smoking history
-Patient quit in 05/2024
Continue lansoprazole for GI prophylaxis
SCDs for DVT prophylaxis
Guarded prognosis � goals of care discussion warranted here. wants the patient to continue with medical treatment to get better so that she he can resume treatment for his tongue SCC. Per oncology, functional status is too poor for
chemotherapy to resume. Radiation therapy is an option although unclear if he has the strength to make it to future treatment appointments. He is hospice appropriate. On 02/04 he was saying that he wants to go home however unclear if he has
capacity to make his own decisions at this point. He is now lethargic as of 02/05
Pulmonary service will continue to briefly follow along. Of note, patient is hospice appropriate but has not officially been transitioned to hospice yet. This will be an ongoing discussion.
Data:
CTA Neck: 01/2025: 1. New 1.8 cm irregular shaped air-filled cavity in the right side of the oropharynx which could be secondary to interval surgical resection of tongue carcinoma or tumor necrosis.
2. Irregular shaped regions of enhancing soft tissue in the left oropharynx and posterior right oropharynx and bird sitter space. Diagnostic possibilities are (1) tumor infiltration or (2) post therapy edema.
3. 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
4. Tracheostomy tube in place.
5. Moderate bilateral upper lobe emphysema.
6. 6 mm solid pulmonary nodule in the right upper lobe which could be a pulmonary metastasis or infectious/inflammatory pulmonary nodule.
7. Severe multilevel cervical discogenic degenerative disease with multilevel disc-osteophyte complexes causing mild spinal cord compression and central canal stenosis.
8. Less than 50% diameter stenosis in both internal carotid arteries.
CT-PE 01/2025: No evidence of central pulmonary embolism.
Changes of emphysema again seen. No findings in the lung parenchyma bilaterally to suggest hemorrhage.
Mild pericardial thickening versus tiny pericardial effusion, decreased.
Small portion of the included abdomen significantly obscured by beam hardening artifact from the patient's bilateral upper extremities. At least one small left renal cyst.
ECHO 04/2024: Normal left ventricular size, wall thickness and systolic function. No regional
wall motion abnormalities are seen. LV ejection fraction is 60-65% by Coto's
method of discs. Normal diastolic function.
Normal right ventricular size and function.
Trace tricuspid regurgitation. Estimated pulmonary artery pressure of 20-25
mmHg, assuming a right atrial pressure of 3 mmHg.
No significant valvular disease.
No prior study available for comparison.
Total time spent today was 36 minutes for this encounter. Time includes reviewing laboratory test/imaging results, reviewing pertinent medical records, obtaining and reviewing medical history, performing an appropriate exam, ordering medications,
tests and procedures. Time also includes documentation of this encounter, coordinating patient care and communicating with other healthcare professionals. Total time does not include separately billed tests performed on this date of service.
Subjective Data
-
Date of Service:
Date of Service: February 07, 2025
Chief Complaint: Pulmonary Follow Up
Subjective:
Patient was seen and evaluated earlier today (late note entry). Patient continues to appear awake and alert. Heart rate 115, BP 142/97 and saturating 97% on trach collar at 28% FiO2. Patient's at bedside, all questions were answered. He
continues to have thick mucus but is able to cough it out. He currently denies chest pain or abdominal pain.
Review of Systems
General: Other (Negative unless mentioned above)
Objective Data
Data Reviewed
Vital Signs / I&O / Oxygen:
Vital Signs
Temp Pulse Resp BP Pulse Ox
99.4 F 88 20 150/79 96
02/07/25 07:55 02/07/25 07:40 02/07/25 07:40 02/07/25 06:00 02/07/25 07:40
Intake and Output
02/06/25 02/07/25 02/08/25
06:59 06:59 06:59
Intake Total 2537 / 2617 2440 / 2440
Output Total 1800 / 1800 2600 / 2600 900 / 900
Balance 737 / 817 -160 / -160 -900 / -900
SaO2 [CPAP/PSV] 97
SaO2 [A/C] 95
SaO2 96
Nasal Cannula flow liters per 3
minute
Physical Exam
General: Respiratory Distress (negative), Comfortable, Chills (negative) and Sweats (negative)
HEENT: Normocephalic, Anicteric and Other (Tracheostomy)
Cardiovascular: S1-S2 and Peripheral Edema (negative)
Respiratory: Wheeze (negative), Crackles (Bilaterally in the anterior lung frederick), Rhonchi (Bilateral), Non-Labored Respirations and Stridor (negative)
GI: Soft, Non Distended, Non Tender and Normal Bowel Sounds
Neurology: AO x 3 and Tremors (negative)
Skin: Warm, Dry, Cyanosis (negative) and Jaundice (negative)
Labs/Micro/Reports
Lab Data
02/07/25 04:13
02/07/25 04:13
Microbiology
02/01/25 18:43 Blood/Venous Blood Culture - Final
No Growth - Final Report
02/01/25 13:21 Blood/Venous Blood Culture - Final
No Growth - Final Report
02/01/25 13:10 Tracheal Aspirate Respiratory Culture - Final
Pseudomonas aeruginosa
S aureus-Methicillin Sensitive
02/01/25 13:10 Tracheal Aspirate Gram Stain - Final
02/01/25 09:58 Urine Urine Culture - Final
Enterococcus faecalis
Aerococcus Species
--- NOTE | 2025-02-07 16:06 | PTCARENOTE ---
Patient AOx1 (self). Patient is restless, confused, agitated, anxious, and forgetful. PRN ativan administered per NOV. Bed alarm on and audible. 1:1 at bedside throughout shift. Patients at bedside throughout shift. Patient nods head, mouths
words, and writes. #[address]. Copious amount of white thick secretions. Frequent suctioning and mouth care provided. SpO2 greater than 92%. NSR-sinus tach with BBB on monitor. Wells in place draining yellow urine. Incontinent soft
brown BM's. Jevity 1.5 running through PEG at goal of 55 mL/hr with 25 mL/hr flush. Care provided to PEG tube. OOB assist x1 with RW to chair. Call fall within reach, bed in lowest position, and bed of wheels locked.
[2025-02-07] MEDS: ROBITUSSIN 400 MG TUBE (21:19)
[2025-02-07 22:02] LABS: Vancomycin Peak 18.5 ug/ml (18-26)
[2025-02-07] MEDS: ZYPREXA 5 MG IM (22:51)
[2025-02-07] MEDS: STERILE WATER FOR INJECTION 2.1 ML IM (22:53)
[2025-02-07 23:45] LABS: B.E. 10.3 mmol/L; HCO3 32.1 mmol/L (21-28); O2 Saturation % 99.9 % (94-98); PCO2 32 mmHg (35-48); PO2 151 mmHg (83-108)
[2025-02-07 23:46] LABS: pH 7.61 (7.35-7.45)
[2025-02-08] VITALS (13 sets, daily range): BP systolic 108–141; BP diastolic 65–91
[2025-02-08] MEDS: ROXICODONE 15 MG TUBE ×6 (00:12→21:12)
[2025-02-08] MEDS: ATIVAN 1 MG IV ×6 (00:12→21:15)
--- NOTE | 2025-02-08 01:21 | PTCARENOTE ---
Addendum entered by Neetu Murguia RN 02/08/25 03:06:
Pt having positive result from Zyprexa and prn Ativan. Pt appears to be resting well at this time. Spo2 96% respirations even, RR 24.
Original Note:
Pt becoming agitated and uncooperative, not easily redirected. Pt trying to remove cords and pushing to get oob, taking multiple people to get him back in bed safely. Night SUPERVISOR BINDERY made aware, Zyprexa ordered, see (NOV) ABG ordered for increased
agitation and confusion. Plan, also give prn's to help with agitation and sleep. Pt having copious secretions now blood tinge, SUPERVISOR BINDERY made aware wile at bed side.
--- NOTE | 2025-02-08 04:35 | PTCARENOTE ---
RT to bed side to assist with inner canula replacement. Size in question, inner canula cleaned with sterile water and tools.
[2025-02-08] MEDS: STERILE WATER FOR INJECTION 10 ML IV ×3 (04:39→21:11)
[2025-02-08] MEDS: MAXIPIME 2000 MG IV ×3 (04:39→21:12)
[2025-02-08] MEDS: VANCOCIN 200 IV (05:06)
[2025-02-08 05:24] LABS: % Basophils 0.3 % (0-2); % Eosinophils 1.9 % (0-6); % Lymphocytes 8.3 % (20.5-51.1); % Monocytes 8.5 % (1.7-9.3); Absolute Eosinophils 0.1 10^3/uL (0-0.7); Absolute Immature Granulocytes 0.1 10^3/uL (0-0.05); Absolute Lymphocytes 0.6 10^3/uL (1.2-3.4); Absolute Monocytes 0.6 10^3/uL (0.1-0.6); Absolute Neutrophils 5.6 10^3/uL (1.4-6.5); Hematocrit 29.7 % (39.0-52.0); Hemoglobin 9.9 g/dL (13.0-18.0); Mean Corp Hgb Conc. 33.3 g/dL (33.0-37.0); Mean Corpuscular Hgb 30.5 pg (27.0-31.0); Mean Corpuscular Volume 91.4 fL (80.0-94.0); Mean Platelet Volume 9.2 fL (7.4-10.4); Nucleated Red Blood Cells % 0 % (-); Platelet Count 365 10^3/uL (130-400); Red Blood Cell Count 3.25 10^6/uL (4.70-6.10); Red Cell Dist. Width 13.9 % (11.5-14.5)
[2025-02-08 05:47] LABS: Blood Urea Nitrogen 14 mg/dl (9-20); Calcium 8.4 mg/dl (8.4-10.2); Carbon Dioxide 30 mmol/L (22-30); Chloride 97 mmol/L (98-107); Estimated Creatinine Clearance 93 ml/min; Glucose 131 mg/dl (70-99); Potassium 3.3 mmol/L (3.5-5.1); Sodium 134 mmol/L (135-145); eGFR > 60.00
[2025-02-08 05:51] LABS: Vancomycin Trough 10.3 ug/ml (5-20)
[2025-02-08] MEDS: KCL ELIXIR 20 MEQ TUBE (06:10)
[2025-02-08] MEDS: SODIUM CHLORIDE 3% FOR INHALATION 1 VIAL INH ×2 (07:31→19:24)
[2025-02-08] MEDS: DUONEB 3 ML INH ×2 (07:31→19:24)
[2025-02-08] MEDS: ATIVAN 0.5 MG TUBE (08:27)
[2025-02-08] MEDS: NSS (PRESERVATIVE FREE) 0.5 ML IV ×2 (08:28→17:07)
--- NOTE | 2025-02-08 08:30 | PHA.VAN.FU ---
Vancomycin Assessment / Plan
- Assessment
Renal Function: Stable
WBC's are: Stable
In the past 24 hrs, patient has been: Afebrile
Concomitant Antimicrobials: cefepime, metronidazole
- Assessment - Therapeutic Drug Monitoring
Extrapolated Cmax (mcg/mL): 23.2
Peak level was drawn: Appropriately
Extrapolated Cmin (mcg/mL): 10.0
Trough Drawn: Appropriately
Levels were drawn: At steady state (prior to 6th dose of 1000 mg q12h)
Calculated AUC (mcg*h/mL): 378
Calculated ke: 0.0761
Calculated half life (H): 9.1
Calculated Vd (L): 69
Calculated Vanc CL (ml/min): 88
- Dosing Plan
Adjust Regimen to: vancomycin 1250 mg q12h
New Regimen Predicts: AUC (500), Peak (30.1), Trough (13.5)
- Monitoring Plan
No level(s) ordered at this time: consider in upcoming days
- Follow Up
Pharmacy will continue to follow.
Vancomycin Follow UP
- -
Patient Age: 69
Patient Sex: Male
Vancomycin Day #: 7
Indication: Genito-Urinary Tract
Requesting Provider: Dr Rudolph/ Dr Torrez
Pertinent Antimicrobial Allergies:
penicillins - rash
Height / Weight:
Height 5 ft 9 in
Actual Weight 55.3 kg
IBW in k.7
Pertinent Past Medical History: BMI ~18, Squamous cell carcinoma of tongue (Trach/PEG)
- Vital Signs / Lab Results
Temp Pulse Resp BP Pulse Ox
99.2 F 102 21 127/72 100
02/08/25 03:00 02/08/25 07:37 02/08/25 07:37 02/08/25 06:00 02/08/25 07:37
Lab Results - Hematology
02/06/25 02/07/25 02/08/25
05:44 04:13 05:05
WBC 6.2 6.4 7.0
Lab Results - Chemistry
02/06/25 02/07/25 02/08/25
05:44 04:13 05:05
BUN 21 H 20 14
Creatinine 0.4 L 0.5 L 0.4 L
Estimated Creat Clear 94 93 93
Microbiology Results
02/01/25 18:43 Blood Culture - Final
Blood/Venous No Growth - Final Report
02/01/25 13:21 Blood Culture - Final
Blood/Venous No Growth - Final Report
Therapeutic Drug Monitoring
Vancomycin Peak 18.5 ug/ml (18-26) 02/07/25 21:23
Vancomycin Trough 10.3 ug/ml (5-20) 02/08/25 05:05
[2025-02-08] MEDS: ROBITUSSIN 400 MG TUBE ×4 (08:36→21:11)
[2025-02-08] MEDS: PREVACID 30 MG TUBE (08:37)
[2025-02-08] MEDS: MIRALAX 17 GRAMS TUBE (08:37)
[2025-02-08] MEDS: ROBINUL 1 MG TUBE ×2 (08:37→17:06)
[2025-02-08] MEDS: DELTASONE 20 MG TUBE (08:37)
[2025-02-08] MEDS: FLAGYL 500 MG 100 IV ×2 (08:37→21:12)
[2025-02-08] MEDS: LIDOCAINE 4% PATCH 1 PATCH TOPICAL (08:38)
--- NOTE | 2025-02-08 08:55 | PTCARENOTE ---
Patient very agitated and pulling at lines, trach, PEG and pulling off gown. Patient kicking 1:1. RN at bedside and patient given PRN IV ativan. Dr. Hairston made aware. Patient educated that he cannot pull at lines, trach, and PEG. Restraints ordered
if needed. Patient much more calm after IV ativan administered. 1:1 remains at bedside. Care ongoing.
[2025-02-08] MEDS: KCL 270 MEQ IV (09:59)
--- NOTE | 2025-02-08 10:23 | W.PN.HOSP.TC ---
Today's Communication/Plan
-
Continue broad-spectrum antibiotics
Replete potassium
As needed Zyprexa/one-to-one/restraints
Ongoing GOC
Assessment / Plan
Assessment / Plan
#Ventilator associated pneumonia
-Status post VDRF due to massive hemoptysis, developed fevers with purulent green sputum
-Respiratory cultures growing MSSA and Pseudomonas aeruginosa, was started on vancomycin/cefepime/Flagyl
-Over the last few days has remained stable at respiratory baseline, no hypoxemia, fevers improving
-Infectious disease following, currently without leukocytosis and fevers as of morning 02/07
-Will continue with broad-spectrum IV antibiotics, trend CBC and temperature curve
-Planning for at least 7 days of antibiotics, ID recs appreciated on duration
-SpO2 goal 90% or greater on trach collar
-Planning for home trach collar with Passy-Marilee valve when improved
#Status post VDRF
#Massive hemoptysis
#ABLA s/p 1 unit PRBC
#SCC of tongue base
-Had massive hemoptysis requiring intubation for airway protection, secondary to bleeding tongue base SCC
-Received 1 unit of PRBC for bleeding, status post course of TXA, CBC has been stable since
-No longer candidate for chemotherapy due to ECOG status and comorbidities
-Consideration for palliative XRT to temporize bleeding
-Trend CBC daily and monitor for recurrent
#Acute TME
#Hospital delirium
-Multifactorial change in mental status due to underlying infection, critical disease, delirium
-Has required one-to-one, as needed Zyprexa
-Continue with PRNs and delirium precaution
-Maintain one-to-one for now
-Start bilateral soft upper limb restraints
#Hypokalemia
-Likely related to intake, critical illness
-Potassium 3.3 on morning 02/08, 40 mEq KCl ordered
-Continue to trend BMP and replete as needed
#Pulmonary nodule (6 mm)
#Emphysema on CT scan
#Former smoker
-Likely with underlying COPD though no signs of flare or bronchospasm throughout this hospital stay
-Noted to have [id number] smoking history, stopped roughly 2 months after diagnosis of squamous cell tongue cancer
-If condition improves to point of discharge will consider standing LABA v LAMA maintenance therapy
-Plan for OP pulmonology for PFTs and repeat CT if his clinical course permits this
-SpO2 goal 88 to 94%
#S/P Tracheostomy tube
#S/P PEG tube
-Secondary to obstructive SCC at his tongue base as above
-Previously on trocar 8, changes to cannula twice a day.
-Currently on Shiley 6.0, ENT plans to change back to trocar 8 at the time of discharge.
-Planning for Passy-Marilee valve as above
-Continue with tube feedings as tolerated
-NPO ecxept ice chips
#Chronic pain syndrome
#Opioid dependence
-Continue home medication regimen
-On 135 MME per day.
#Cachexia
-Secondary to malignancy.
-BMI at 18.1. currently on Jevity 1.5, 3 times a day.
GI prophylaxis-Lansoprazole
DVT prophylaxis-SCDs
Diet-tube feeds with Jevity 1.5
CODE STATUS-limited DNR (no chest compressions)
GOC ongoing
Poor prognosis
Anticipated Discharge: > 48 hours
Subjective/Interval History
-
Date of Service: February 08, 2025
Seen and examined at the bedside. No acute events reported overnight. AFVSS this morning on baseline trach
Reportedly with agitation, restraints were needed this morning. Potassium 3.3 and repleted
ROS limited by inability to speak
Objective Data
-
Labs:
Laboratory Results
02/07/25 02/08/25
23:39 05:05
WBC 7.0
Hgb 9.9 L
Hct 29.7 L
Plt Count 365
HCO3 32.1 H
Sodium 134 L
Potassium 3.3 L
Chloride 97 L
Carbon Dioxide 30
BUN 14
Creatinine 0.4 L
Glucose 131 H
Calcium 8.4
Vital Signs:
Vital Signs
Temp Pulse Resp BP Pulse Ox
99.2 F 98 20 135/88 95
02/08/25 03:00 02/08/25 09:00 02/08/25 09:00 02/08/25 08:00 02/08/25 08:00
I&O
02/07/25 02/08/25 02/09/25
06:59 06:59 06:59
Intake Total 2440 / 2440 2049
Output Total 2600 / 2600 3500 / 3500
Balance -160 / -160 -1450 / -1450
Review of Systems
-
Unable to obtain full review of systems at this time due to: Patient Non-verbal
Physical Exam
-
General: Well Developed, No Apparent Distress, Appears Chronically Ill and Cachectic
HEENT: Normocephalic, Atraumatic, Moist Mucous Membranes and Anicteric
Respiratory: Rales, Rhonchi and Non Labored Respirations; Negative Accessory Resp Muscle Use
Cardiac: Regular Rhythm and S1/S2; Negative Murmur, Rub or Gallop
GI: Soft, Nontender, Nondistended and Normal Bowel Sounds
Musculoskeletal: No Clubbing, No Cyanosis and No Edema
Skin: Warm and Dry; Negative Rash
Neuro: Awake, Alert, Nonfocal/Grossly Intact and Central Nerve's Intact; Negative Oriented or Tremors
Psych: Agitated
Data Reviewed
-
Labs: Labs Reviewed by me and Discussed with Nurse
--- NOTE | 2025-02-08 14:22 | W.PN.PUL3 ---
Today's Communication / Plan
-
Antibiotics per ID
Continue trach collar with FiO2 21 to 28%
Ventilator at night only if needed for increased WOB, increased secretions with inability to effectively suction, acute hypoxia or AMS; if he is altered then check stat blood gases to assess pH + pCO2
Once secretions improve then would perform Passy-Duncan valve trial per [employer] + RT
Continue to hold scopolamine patch given the thickness of his secretions
Mucolytics
Continue cofflator (started 02/07)
Frequent suctioning through tracheostomy
Continue DuoNebs + nebulized 3% with prn doses in between
Guarded prognosis � hospice appropriate, although he has been much more awake, alert and oriented since 02/06
PT/OT - will likely need skilled SNF vs acute rehab
prn ativan or zyprexa for agitation
Continue IMU level of care
Pulmonary service will continue to briefly follow along
Assessment
-
#1. Hemoptysis - now resolved s/p packing via ENT + nebulized TXA Suspect this was originating from upper airway likely the tumor bed. S/p packing by ENT service 01/29, packing removed 01/30.
- Packing removed 01/30, no further bleeding noted. ENT service on case.
- Serial H&H stable.
- Avoid antiplatelets and anticoagulants for now
- Clotted dark blood noted in nares, started prn [place] to help clear nasal passage
- Last day of nebulized TXA on 02/02 --> may need to be resumed if recommended by ENT or if hemoptysis recurs
#2. Acute hypoxic respiratory failure, at baseline s/p tracheostomy on trach collar.
- Patient at baseline wears a cough flex Portex 8.0 tracheostomy tube with trach collar. In view of hemoptysis, he was switched to Shiley 6.0 cuffed tracheostomy tube and was placed on mechanical ventilation.
- 01/31, patient was weaned to pressure support and then subsequently to trach collar all day. He started to get tired towards the end of the day and was switched back to mechanical ventilation. on AM of 02/01, he was back on pressure support 01/26
- As of 02/02, tolerating trach collar after being on pressure support via vent overnight
- He did get very agitated on the evening of 02/02, likely due to owning with acute delirium, and was placed back onto the ventilator. He's back on trach collar as of the morning of 02/03 with no need for vent since evening of 02/02-02/03
- Given his thick secretions, DuoNebs + nebulized 3% BID started with frequent tracheal suctioning as needed
- Started cofflator on 02/07 and increased Mucinex to 400mg QID
- Speech pathology consulted but patient unable to try Passy-Duncan trials due to the degree of his tracheal secretions. This will be an ongoing assessment.
- Continue PT/OT
- Aspiration precautions
- Continue with trach collar and monitor respiratory status, SpO2 and work of breathing, and as long as he is saturating >90% and not in respiratory distress would keep on trach collar
- If he does become tachypneic, then place onto the ventilator on pressure support with PS: 5, CPAP: 5
- Blood gas checked on evening of 02/04 while on trach collar all day, and showed stable pCO2 at 42 with pH 7.46.
- Considering he has not required the ventilator since overnight on 02/02 - 02/03/2025, I reached out to ENT, spoke with Dr. Perrin who feels it is best to keep patient with his current tracheostomy(his home trach is: cuffless Portex 8.0 and is
present at bedside), which is cuffed in the event that he does need the ventilator. If patient were to continue improving, we can always exchange his tracheostomy at a later date.
- Patient is on prednisone as an outpatient, likely to reduce swelling from his head and neck cancer - resumed prednisone on 02/02 with slow taper (appears he has been on prednisone 30 mg prescribed him in mid December 2024, and prior to that was on 20
mg daily the month prior, as per pharmacist review of his outpatient medical records during rounds on 02/02)
- Given his poor functional status, he is not a candidate for additional chemotherapy per oncology. He is hospice appropriate. This will be an ongoing discussion
#3. Fever -due to Pseudomonas pneumonia
- His secretions coming out of his tracheostomy site are foul-smelling and it is positive for hamilton-sensitive Pseudomonas aeruginosa + MSSA
- He was started on cefepime on 02/01
- Follow-up blood cultures collected 02/01/2025 which shows NGTD
- Of note, urine culture also positive for Enterococcus faecalis + Aerococcus species--> patient currently on cefepime + IV vancomycin and ID added IV Flagyl on 02/05. Recommend to change antibiotics to Zosyn per the microbial sensitivities. He
does have a penicillin allergy.
- Will ultimately defer Abx to ID
#4. Emphysema with 6 mm lung nodule.
- Reported significant secretions at baseline, ?Chronic bronchitis.
- Extensive smoking history and emphysema on imaging. Suspect underlying COPD
- Continue DuoNebs +3% BID with prn doses in between
- Given that his secretions are thick, scopolamine patch discontinued on 02/04
- Depending on patient's clinical course, will need further workup including PFTs and serial CT surveillance as outpatient - doubtful this will occur given his clinical cource as he is heading towards hospice
#5. History of squamous cell carcinoma, tongue, status post chemotherapy and radiation.
- Patient is s/p tracheostomy as well as PEG tube
- Follows up with Dr. Galvan at [facility] as well as [facility] --> oncology consulted on 02/02
- Patient was scheduled to start a second line chemotherapy on 01/29 - was sent to emergency room for hemoptysis
#4. H/O Smoking, more then 40 pack year smoking history
-Patient quit in 05/2024
Continue lansoprazole for GI prophylaxis
SCDs for DVT prophylaxis
Guarded prognosis � goals of care discussion warranted here. wants the patient to continue with medical treatment to get better so that she he can resume treatment for his tongue SCC. Per oncology, functional status is too poor for
chemotherapy to resume. Radiation therapy is an option although unclear if he has the strength to make it to future treatment appointments. He is hospice appropriate. On 02/04 he was saying that he wants to go home however unclear if he has
capacity to make his own decisions at this point. He is now lethargic as of 02/05
Pulmonary service will continue to briefly follow along. Of note, patient is hospice appropriate but has not officially been transitioned to hospice yet. This will be an ongoing discussion.
Data:
CTA Neck: 01/2025: 1. New 1.8 cm irregular shaped air-filled cavity in the right side of the oropharynx which could be secondary to interval surgical resection of tongue carcinoma or tumor necrosis.
2. Irregular shaped regions of enhancing soft tissue in the left oropharynx and posterior right oropharynx and fabric worker supervisor space. Diagnostic possibilities are (1) tumor infiltration or (2) post therapy edema.
3. 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
4. Tracheostomy tube in place.
5. Moderate bilateral upper lobe emphysema.
6. 6 mm solid pulmonary nodule in the right upper lobe which could be a pulmonary metastasis or infectious/inflammatory pulmonary nodule.
7. Severe multilevel cervical discogenic degenerative disease with multilevel disc-osteophyte complexes causing mild spinal cord compression and central canal stenosis.
8. Less than 50% diameter stenosis in both internal carotid arteries.
CT-PE 01/2025: No evidence of central pulmonary embolism.
Changes of emphysema again seen. No findings in the lung parenchyma bilaterally to suggest hemorrhage.
Mild pericardial thickening versus tiny pericardial effusion, decreased.
Small portion of the included abdomen significantly obscured by beam hardening artifact from the patient's bilateral upper extremities. At least one small left renal cyst.
ECHO 04/2024: Normal left ventricular size, wall thickness and systolic function. No regional
wall motion abnormalities are seen. LV ejection fraction is 60-65% by Coto's
method of discs. Normal diastolic function.
Normal right ventricular size and function.
Trace tricuspid regurgitation. Estimated pulmonary artery pressure of 20-25
mmHg, assuming a right atrial pressure of 3 mmHg.
No significant valvular disease.
No prior study available for comparison.
Total time spent today was 38 minutes for this encounter. Time includes reviewing laboratory test/imaging results, reviewing pertinent medical records, obtaining and reviewing medical history, performing an appropriate exam, ordering medications,
tests and procedures. Time also includes documentation of this encounter, coordinating patient care and communicating with other healthcare professionals. Total time does not include separately billed tests performed on this date of service.
Subjective Data
-
Date of Service:
Date of Service: February 08, 2025
Chief Complaint: Pulmonary Follow Up
Subjective:
Patient seen today at bedside (late note entry). 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 This morning he is requiring Ativan to keep him calm. Current heart rate 73, BP 135/86 and saturating 97% on trach collar at FiO2
28%. Patient's at bedside. All questions were answered. Continues to have thick secretions which are green/yellow.
Review of Systems
General: Other (Unobtainable given patient's acute clinical status/agitation)
Objective Data
Data Reviewed
Vital Signs / I&O / Oxygen:
Vital Signs
Temp Pulse Resp BP Pulse Ox
99.2 F 98 20 135/88 95
02/08/25 03:00 02/08/25 09:00 02/08/25 09:00 02/08/25 08:00 02/08/25 08:00
Intake and Output
02/07/25 02/08/25 02/09/25
06:59 06:59 06:59
Intake Total 2440 / 2440 2049 / 2049
Output Total 2600 / 2600 3500 / 3500
Balance -160 / -160 -1450 / -1450
SaO2 [CPAP/PSV] 97
SaO2 [A/C] 95
SaO2 95
Nasal Cannula flow liters per 3
minute
Physical Exam
General: Respiratory Distress (negative), Comfortable, Chills (negative) and Sweats (negative)
HEENT: Normocephalic, Anicteric and Other (Tracheostomy)
Cardiovascular: S1-S2 and Peripheral Edema (negative)
Respiratory: Wheeze (negative), Crackles (Bilaterally), Rhonchi (Bilateral), Non-Labored Respirations and Stridor (negative)
GI: Soft, Non Distended, Non Tender and Normal Bowel Sounds
Neurology: Awake, Tremors (negative) and Other (Confused/agitated at times)
Skin: Warm, Dry, Cyanosis (negative) and Jaundice (negative)
Labs/Micro/Reports
Lab Data
02/08/25 05:05
02/08/25 05:05
Laboratory Results
02/07/25
23:39
pH 7.61 H*
pCO2 32 L
pO2 151 H
HCO3 32.1 H
O2 Delivery Level
Microbiology
02/01/25 18:43 Blood/Venous Blood Culture - Final
No Growth - Final Report
02/01/25 13:21 Blood/Venous Blood Culture - Final
No Growth - Final Report
02/01/25 13:10 Tracheal Aspirate Respiratory Culture - Final
Pseudomonas aeruginosa
S aureus-Methicillin Sensitive
02/01/25 13:10 Tracheal Aspirate Gram Stain - Final
--- NOTE | 2025-02-08 15:03 | PTCARENOTE ---
Patient AOx1 (self). Patient is restless, confused, agitated, anxious, and forgetful. PRN ativan administered per NOV. Bed alarm on and audible. 1:1 at bedside throughout shift. Patients at bedside throughout shift. Patient nods head, mouths
words, and writes. #[address]. Copious amount of white thick secretions. Frequent suctioning and mouth care provided. SpO2 greater than 92%. NSR-sinus tach on monitor. Wells in place draining yellow urine. Incontinent soft brown BM's.
Jevity 1.5 running through PEG at goal of 55 mL/hr with 25 mL/hr flush. Care provided to PEG tube. Call fall within reach, bed in lowest position, and bed of wheels locked.
--- NOTE | 2025-02-08 16:01 | CHAP ---
Nba was sleeping, with his at the bedside. She shared her anxiety about the situation and the road ahead. Emotional and spiritual support provided.
[2025-02-08] MEDS: DIAMOX 250 MG TUBE (17:05)
[2025-02-08] MEDS: VANCOCIN 275 MG IV (17:07)
--- NOTE | 2025-02-08 22:16 | PTCARENOTE ---
Patient aao x3, forgetfulness noted at times, affect flat. Patient continues on trach collar, refuses at times. Large amount of parnell/yellow secretions noted from trach. Suctioning provided prn. Patient NSR to ST with anxiety or activity. Jevity
continues at 55ml/hr with 25ml/hr flush, tolerating well. 0 TFR noted. Wells remains intact and draining clear, yellow urine. Hygiene provided this evening, patient attempting to assist with turning during care, also attempting to get oob during
care. Call fall within reach, 1:[address] patient safety[address] Will continue to monitor patient closely.
[2025-02-09] VITALS (12 sets, daily range): BP systolic 99–149; BP diastolic 68–118
[2025-02-09] MEDS: ROXICODONE 15 MG TUBE ×7 (00:14→23:25)
[2025-02-09] MEDS: ATIVAN 1 MG IV ×2 (01:21→08:01)
[2025-02-09] MEDS: ROBINUL 1 MG TUBE ×2 (03:20→17:59)
[2025-02-09] MEDS: MAXIPIME 2000 MG IV (03:20)
[2025-02-09] MEDS: DESYREL 50 MG TUBE ×2 (03:20→23:19)
[2025-02-09] MEDS: STERILE WATER FOR INJECTION 10 ML IV (03:21)
[2025-02-09] MEDS: VANCOCIN 275 MG IV (03:21)
[2025-02-09 03:42] LABS: Venous Blood Gas HCO3 27.9 mmol/L (22-27); Venous Blood Gas pCO2 43 mmHg (35-48); Venous Blood Gas pH 7.42 (7.32-7.43); Venous Blood Gas pO2 63 mmHg (30-50)
[2025-02-09 03:47] LABS: % Basophils 0.4 % (0-2); % Eosinophils 1.5 % (0-6); % Immature Granulocytes 1.5 % (0-0.5); % Lymphocytes 7.5 % (20.5-51.1); % Monocytes 6.5 % (1.7-9.3); % Neutrophils 82.6 % (42.2-75.2); Absolute Eosinophils 0.1 10^3/uL (0-0.7); Absolute Immature Granulocytes 0.1 10^3/uL (0-0.05); Absolute Lymphocytes 0.7 10^3/uL (1.2-3.4); Absolute Monocytes 0.6 10^3/uL (0.1-0.6); Absolute Neutrophils 7.9 10^3/uL (1.4-6.5); Hematocrit 29.8 % (39.0-52.0); Hemoglobin 9.9 g/dL (13.0-18.0); Mean Corp Hgb Conc. 33.2 g/dL (33.0-37.0); Mean Corpuscular Hgb 30.7 pg (27.0-31.0); Mean Corpuscular Volume 92.5 fL (80.0-94.0); Nucleated Red Blood Cells % 0 % (-); Platelet Count 393 10^3/uL (130-400); Red Blood Cell Count 3.22 10^6/uL (4.70-6.10); Red Cell Dist. Width 14.2 % (11.5-14.5); White Blood Cell Count 9.5 10^3/uL (4.8-10.8)
[2025-02-09 04:12] LABS: ALT (SGPT) 18 U/L (0-50); AST (SGOT) 17 U/L (17-59); Albumin 3.2 g/dl (3.5-5.0); Alkaline Phosphatase 94 U/L (38-126); Blood Urea Nitrogen 18 mg/dl (9-20); Calcium 8.3 mg/dl (8.4-10.2); Carbon Dioxide 26 mmol/L (22-30); Chloride 102 mmol/L (98-107); Estimated Creatinine Clearance 93 ml/min; Glucose 121 mg/dl (70-99); Magnesium 1.8 mg/dl (1.6-2.3); Phosphorus 3.1 mg/dl (2.5-4.5); Potassium 4.3 mmol/L (3.5-5.1); Sodium 134 mmol/L (135-145); Total Bilirubin 0.4 mg/dl (0.2-1.3); Total Protein 6.1 g/dl (6.3-8.2); eGFR > 60.00
[2025-02-09] MEDS: SODIUM CHLORIDE 3% FOR INHALATION 1 VIAL INH ×2 (07:23→19:25)
[2025-02-09] MEDS: DUONEB 3 ML INH ×2 (07:23→19:25)
--- NOTE | 2025-02-09 07:44 | W.PN.HOSP.TC ---
Addendum entered and electronically signed by Jamar Schmidt MD 02/09/25 16:17:
Unfortunately overall prognosis is grim. He presented with hemoptysis cough with acute blood loss anemia requiring 1 unit PRBCs. Additionally required mechanical ventilator eventually was weaned now 12 hours on 12 hours off via trach. Has a known
history of stage IV basal cell carcinoma with mets to the liver and bone along with history of prostate cancer s/p radiation. Trach culture growing Pseudomonas and MSSA for which infectious diseases is evaluating and has provided recommendations in
terms of antibiotic use with Keflex/Cipro/metronidazole via PEG tube with a stop date of 02/14. Additionally oncology evaluated the for this stage IV basal cell carcinoma of the tongue and has deemed him not a candidate for any additional systemic
therapy and has recommended hospice.
He tells his brothers that he wants to give up he wants to be comfortable however his is a decision maker and wants to continue full steam ahead as she believes that he will be able to go to SNF improve and continue treatment. Due to the fact
that he is voicing his opinion of comfort care/hospice and this is appropriate in this clinical setting as he is no longer a candidate for systemic therapy in the treatment of stage IV basal cell carcinoma ethics has been consulted to facilitate
discussions as his would like to continue providing full treatment. At this time I do believe it would be in his best interest for comfort care and to provide him with quality of life versus quantity of life.
Original Note:
Today's Communication/Plan
-
GOC discussion ongoing
Ativan standing orders
Zyprexa once a night standing orders.
Continue suctioning, DuoNebs, cofflator and Mucinex.
Assessment / Plan
Assessment / Plan
Assessment-
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
hypoglossal nerve tumor bed.
Plan-
Ventilator associated pneumonia-
S/p AVR DF for massive hemoptysis, fevers with purulent green sputum
Respiratory cultures consistent with MSSA and Pseudomonas aeruginosa (obtained from tracheostomy tube)-was started on vancomycin, cefepime and Flagyl.
ID on board, ID addressing antibiotics. Appreciate ID input.
Cefepime-day 7, vancomycin-day 6, metronidazole-day 4.
Currently patient not hypoxemic respiratory status at baseline, fevers improving.
No leukocytosis, no fever since 02/07/2025.
Trend CBC and monitor temperature curve
ID planning on at least 7 days of antibiotics.
Given underlying baseline COPD (although no official diagnosis), but noted emphysema on CT-SpO2 goal to be 88-94%
Currently patient saturations greater than 90% on trach collar.
ENT's plan is to get Passy-Marilee valve when patient improves.
Massive hemoptysis-resolved
Acute blood loss anemia-
Secondary to massive hemoptysis from the tumor site s/p 1 unit PRBC
SCC of the tongue base
Requiring intubation for airway protection. Received 1 unit of PRBC for bleeding s/p TXA.
TXA discontinued on 02/03.
Oncology consulted, no longer a candidate for chemotherapy per oncology.
Poor prognosis at this point of time, ongoing goals of care discussion with .
Radiation oncology recommended palliative radiation therapy to temporize bleeding in case patient rebleeds.
Trend CBC and monitor for recurrent bleeding.
Acute toxic metabolic encephalopathy-
Suspect hospital-acquired delirium in conference with cefepime.
Multifactorial-confluence of critical disease, infection, antibiotic.
Delirium present even before starting patient on cefepime.
Added as needed Zyprexa, 1-1.
Restraints as needed, but recommend refraining from using restraints.
Restraints may worsen patient's agitation.
Hypokalemia-
Resolved.
S/p potassium supplementation-40 mEq
Trend potassium and replete as needed.
Hyponatremia-
Serum sodium of 134.
Likely hypovolemic hyponatremia.
Continue trending serum sodium.
Emphysema on CT scan, pulmonary nodule of 6 mm
Copious amounts of tracheostomy secretions-
Likely a confluence of infection and decreased clearance from the tumor burden.
Currently patient on DuoNebs, suctioning, Cofflator since 02/07, and Mucinex at 400 4 times daily.
Appreciate pulmonology input. Pulmonology also recommends hospice.
Continue PT OT. Continue aspiration precautions.
GI prophylaxis-on lansoprazole
#Status post VDRF
#Massive hemoptysis
#ABLA s/p 1 unit PRBC
#SCC of tongue base
-Had massive hemoptysis requiring intubation for airway protection, secondary to bleeding tongue base SCC
-Received 1 unit of PRBC for bleeding, status post course of TXA, CBC has been stable since
-No longer candidate for chemotherapy due to ECOG status and comorbidities
-Consideration for palliative XRT to temporize bleeding
-Trend CBC daily and monitor for recurrent
Tracheostomy tube-
PEG tube-
Secondary to obstructive SCC at the base of the tongue
Previously on trocar 8, changes his cannula twice a day at home.
Currently on Shiley 6. ENT plans back for trocar right at the time of discharge.
Failed Passy-Marilee valve trials before. Planning for Passy-Marilee valve.
Continue with tube feedings as tolerated, n.p.o. except for ice chips.
Chronic pain syndrome-
Due to malignancy, opioid dependence
Continue home medication regimen
Continue 135 morphine milliequivalents per day
Added Dilaudid for moderate and severe pain.
Cachexia-
Severe protein calorie malnutrition based on muscle mass and temporal wasting.
Decreased consumption of oral intake-greater than 20%
BMI at 18.1, currently on Jevity 1.53 times a day.
DVT prophylaxis-SCDs
CODE STATUS-limited DNR (no chest compressions)
Goals of care discussion-
Patient clearly stated his wishes that he is not comfortable and wants only comfort care. He does not want to pursue treatments any further. Oncology assessed the patient and did remind him not a candidate for chemotherapy anymore given the acuity
of his conditions and infections. Intensive care, primary hospital medicine team, oncology, -discussed prognosis with the patient family multiple times over the last week with no result of decision making from his . wants to pursue all
treatments at any cost. Medical ethics consult placed to resolve the conflict in decision making. Will continue to encourage patient's spouse and patient to make informed decisions on hospice/comfort care.
Poor prognosis as determined by all specialists.
Anticipated Discharge: > 48 hours
Subjective/Interval History
-
Date of Service: February 09, 2025
No symptoms today.
Patient states to his one-on-one and his brother that he is done fighting the disease and wants to be comfortable.
Objective Data
-
Labs:
Laboratory Results
02/09/25
03:33
WBC 9.5
Hgb 9.9 L
Hct 29.8 L
Plt Count 393
Sodium 134 L
Potassium 4.3 D
Chloride 102
Carbon Dioxide 26
BUN 18
Creatinine 0.5 L
Glucose 121 H
Calcium 8.3 L
Total Bilirubin 0.4
AST 17
ALT 18
Alkaline Phosphatase 94
Vital Signs:
Vital Signs
Temp Pulse Resp BP Pulse Ox
98.7 F 94 20 149/91 96
02/09/25 04:00 02/09/25 07:25 02/09/25 07:25 02/09/25 06:00 02/09/25 07:25
I&O
02/08/25 02/09/25 02/10/25
06:59 06:59 06:59
Intake Total 2049 1360 / 1360
Output Total 3500 / 3500 2049
Balance -1450 / -1450 -690 / -690
Review of Systems
-
Unable to obtain full review of systems at this time due to: Acuity and Other (tracheal collar)
History Source: Patient
Constitutional: Reports No Symptoms
EENT: Reports No Symptoms Reported
Respiratory: Reports Cough, Trouble Breathing and Wheezing
Cardiac: Reports No Symptoms
Abdomen/GI: Reports No Symptoms
Genitourinary: Reports No Symptoms
Musculoskeletal: Reports No Symptoms
Skin: Reports No Symptoms
Neuro: Reports No Symptoms
Endocrine: Reports No Symptoms
Hematologic / Lymphatic: Reports No Symptoms
Allergy / Immunology: Reports No Symptoms
Physical Exam
-
General: Respiratory Distress, Cachectic and Other (accessory muscle use for respiration. )
Respiratory: Wheezes (Across all lung lobes), Rales (across all lung lobes), Crackles (across all lung lobes) and Accessory Resp Muscle Use; Negative Rhonchi
Cardiac: Regular Rhythm and S1/S2; Negative Murmur, Rub or Gallop
GI: Soft, Nontender, Nondistended and Normal Bowel Sounds
Musculoskeletal: No Clubbing, No Cyanosis, Edema, Right Lower Extrem and Edema, Left Lower Extrem
Skin: Warm
Neuro: No Motor Deficits
Psych: Agitated
Data Reviewed
-
Labs: Labs Reviewed by me, Discussed with Physician and Discussed with Nurse
[2025-02-09] MEDS: NSS (PRESERVATIVE FREE) 0.5 ML IV (08:01)
[2025-02-09] MEDS: ATIVAN 0.5 MG TUBE (08:01)
[2025-02-09] MEDS: MIRALAX TUBE (08:10)
[2025-02-09] MEDS: FLAGYL 500 MG 100 IV (08:15)
[2025-02-09] MEDS: LIDOCAINE 4% PATCH 1 PATCH TOPICAL (08:16)
[2025-02-09] MEDS: PREVACID 30 MG TUBE (08:16)
[2025-02-09] MEDS: ROBITUSSIN 400 MG TUBE ×4 (08:16→22:30)
[2025-02-09] MEDS: DELTASONE 20 MG TUBE (08:16)
--- NOTE | 2025-02-09 09:03 | PTCARENOTE ---
Patient very agitated attempting to pull at trach and PEG and pulled BP cuff off mouthing 'no more, I want to be done'. Dr. Mccord and Dr. Schmidt made aware. 1:1 at bedside. Safe environment maintained. Care ongoing.
--- NOTE | 2025-02-09 09:05 | HOSPNOTE ---
Spoke with spouse and at this time still not interested in hospice. I will continue to follow.
--- NOTE | 2025-02-09 09:11 | W.PN.PUL3 ---
Today's Communication / Plan
-
Trach to baseline settings, not on vent and hemoptysis has resolved
Remains on abx course per ID
Patient has been refusing care, aggressive, he does not wish to continue treatment--now on 1:1
Family has not been agreeable to hospice, ongoing discussions
Nothing further to offer from our perspective, can let us know if family does not wish to transition to hospice
Ethics consult can be considered
Assessment
-
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 Patient at baseline has a known cough to
tracheostomy tube. Reportedly bleeding developed the night before and patient was bringing up blood per mouth, no bleeding from the tracheostomy site however. Patient also has a diagnosis of prostate cancer s/p radiation and TURP, follows at [place].
He is enrolled in outpatient [facility] care. In the emergency room patient had a CT PE which was negative for any pulmonary embolism. Subsequently patient had the tracheostomy tube changed to a cuffed Shiley 6.0 and patient was connected to mechanical
ventilation. Patient is being admitted to the ICU for further management and recreation therapy aide service was consulted for further input.
Hemoptysis - now resolved s/p packing via ENT + nebulized TXA
Acute hypoxic respiratory failure, at baseline s/p tracheostomy on trach collar
Fever -due to Pseudomonas pneumonia
Acute delirium
Severe protein calorie malnutrition, FTT
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
Former smoker, 40 PY
Emphysema
6 mm pulmonary nodule
History of squamous cell carcinoma, tongue, status post chemotherapy and radiation.
Prostate cancer s/p Lupron
Percutaneous endoscopic gastrostomy status
2-vessel coronary artery disease
Insomnia
Alcohol abuse
Noncompliance with health related screening/preventions
Plan
Suspect this was originating from upper airway likely the tumor bed. S/p packing by ENT service 01/29, packing removed 01/30.
Packing removed 01/30, no further bleeding noted. ENT to see PRN
Serial H&H stable.
Avoid antiplatelets and anticoagulants
Last day of nebulized TXA on 02/02
Resolved
Patient is s/p tracheostomy as well as PEG tube
Patient at baseline wears a cough flex Portex 8.0 tracheostomy tube with trach collar--back to baseline/no vent
Airway clearance continued --cofflator, Mucinex to 400mg QID
Speech pathology following for trach assessments, PMV
Continue PT/OT
Aspiration precautions
Blood gas checked on evening of 02/04 while on trach collar all day, and showed stable pCO2 at 42 with pH 7.46
Continue with trach collar and monitor respiratory status, SpO2 and work of breathing, and as long as he is saturating >90% and not in respiratory distress would keep on trach collar
Follows up with Dr. Galvan at [facility] as well as [facility] --> oncology consulted on 02/02
Patient was scheduled to start a second line chemotherapy on 01/29 - was sent to emergency room for hemoptysis
Patient is on prednisone as an outpatient, likely to reduce swelling from his head and neck cancer - resumed prednisone 20mg daily/baseline dose
Given his poor functional status, he is not a candidate for additional chemotherapy per oncology. He is hospice appropriate. This will be an ongoing discussion
Sputum culture positive for hamilton-sensitive Pseudomonas aeruginosa + MSSA
Started on cefepime on 02/01
Follow-up blood cultures collected 02/01/2025 which shows NGTD
Of note, urine culture also positive for Enterococcus faecalis + Aerococcus species--> patient currently on cefepime + IV vancomycin and ID added IV Flagyl on 02/05.
ID following, changed to Cipro, Kelfex and Flagyl PO
Reported significant secretions at baseline, ?Chronic bronchitis.
Extensive smoking history and emphysema on imaging. Suspect underlying COPD
H/O Smoking, more then 40 pack year smoking history--Patient quit in 05/2024
Continue DuoNebs +3% BID with prn doses in between
Continue lansoprazole for GI prophylaxis
SCDs for DVT prophylaxis
Family Discussions
Guarded prognosis � goals of care discussion warranted here. wants the patient to continue with medical treatment to get better so that she he can resume treatment for his tongue SCC. Per oncology, functional status is too poor for
chemotherapy to resume. Radiation therapy is an option although unclear if he has the strength to make it to future treatment appointments. He is hospice appropriate. On 02/04 he was saying that he wants to go home however family has not yet
agreed to this
Of note, patient is hospice appropriate but has not officially been transitioned to hospice yet. This will be an ongoing discussion.
Reviewed case with primary team, has not been agreeing to hospice care, defer to team for ongoing discussions
Consider ethics consult if there still seems disagreement with patient's wishes
Data:
CTA Neck: 01/2025: 1. New 1.8 cm irregular shaped air-filled cavity in the right side of the oropharynx which could be secondary to interval surgical resection of tongue carcinoma or tumor necrosis.
2. Irregular shaped regions of enhancing soft tissue in the left oropharynx and posterior right oropharynx and pole framer machine space. Diagnostic possibilities are (1) tumor infiltration or (2) post therapy edema.
3. 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
4. Tracheostomy tube in place.
5. Moderate bilateral upper lobe emphysema.
6. 6 mm solid pulmonary nodule in the right upper lobe which could be a pulmonary metastasis or infectious/inflammatory pulmonary nodule.
7. Severe multilevel cervical discogenic degenerative disease with multilevel disc-osteophyte complexes causing mild spinal cord compression and central canal stenosis.
8. Less than 50% diameter stenosis in both internal carotid arteries.
CT-PE 01/2025: No evidence of central pulmonary embolism. Changes of emphysema again seen. No findings in the lung parenchyma bilaterally to suggest hemorrhage. Mild pericardial thickening versus tiny pericardial effusion, decreased. Small portion
of the included abdomen significantly obscured by beam hardening artifact from the patient's bilateral upper extremities. At least one small left renal cyst.
ECHO 04/2024: Normal left ventricular size, wall thickness and systolic function. No regional wall motion abnormalities are seen. LV ejection fraction is 60-65% by Coto's method of discs. Normal diastolic function. Normal right ventricular size
and function. Trace tricuspid regurgitation. Estimated pulmonary artery pressure of 20-25 mmHg, assuming a right atrial pressure of 3 mmHg. No significant valvular disease. No prior study available for comparison.
-----
Total time spent today was 53 minutes for this encounter. Time includes reviewing laboratory test/imaging results, reviewing pertinent medical records, obtaining and reviewing medical history, performing an appropriate exam, ordering medications,
tests and procedures. Time also includes documentation of this encounter, coordinating patient care and communicating with other healthcare professionals. Total time does not include separately billed tests performed on this date of service.
Subjective Data
-
Date of Service:
Date of Service: February 09, 2025
Chief Complaint: Pulmonary Follow Up
Subjective:
Sleeping, agitated when awake
With 1:1 in room
Trach to trach collar/PMV, no vent use
Objective Data
Data Reviewed
Vital Signs / I&O / Oxygen:
Vital Signs
Temp Pulse Resp BP Pulse Ox
98.7 F 94 20 149/91 96
02/09/25 04:00 02/09/25 07:25 02/09/25 07:25 02/09/25 06:00 02/09/25 07:25
Intake and Output
02/08/25 02/09/25 02/10/25
06:59 06:59 06:59
Intake Total 2049 1360 / 1360
Output Total 3500 / 3500 2049
Balance -1450 / -1450 -690 / -690
SaO2 [CPAP/PSV] 97
SaO2 [A/C] 95
SaO2 96
Nasal Cannula flow liters per 3
minute
Physical Exam
General: Respiratory Distress (negative), Comfortable, Chills (negative) and Sweats (negative)
HEENT: Normocephalic, Anicteric and Tracheotomy (PMV, trach collar)
Cardiovascular: S1-S2, Regular Rhythm and Peripheral Edema (negative)
Respiratory: Wheeze (negative), Rhonchi (Bilateral, mild), Non-Labored Respirations and Stridor (negative)
GI: Soft, Non Distended, Non Tender and Normal Bowel Sounds
Neurology: Tremors (negative), Lethargic and Other (Confused/agitated at times)
Skin: Warm, Dry, Cyanosis (negative) and Jaundice (negative)
Labs/Micro/Reports
Lab Data
02/09/25 03:33
02/09/25 03:33
Microbiology
02/01/25 18:43 Blood/Venous Blood Culture - Final
No Growth - Final Report
02/01/25 13:21 Blood/Venous Blood Culture - Final
No Growth - Final Report
--- NOTE | 2025-02-09 10:27 | W.PN.ID1 ---
Date of Service
Date of Service: February 09, 2025
Today's Communication
- start keflex (suspension)/ciprofloxacin/metronidazole via the PEG tube - course 02/05-02/14 then stop
- asked egg caser to investigate if facilities will accept pt with keflex suspension
- appreciate oncology input, agree that hospice is indicated at this time and expect remitting relapsing infections will ultimately be the cause of his which is a major cause of in oncology patients; if patient transitions to hospice
recommend stopping antibiotics and treating any fevers with PRN tylenol
- stable for dc from ID perspective
Assessment / Plan
Intermittent Fevers
Tracheitis
Possible UTI
Hemoptysis
SCC of the oral cavity-s/p chemoradiation
Reported allergy to penicillin - rash
- relapse of fevers - resolved
- blood cultures x2 no growth to date
- tracheal aspirate - Pseudomonas and MSSA
- has completed an adequate course of vancomycin for the E faecalis in the urine
- start keflex (suspension)/ciprofloxacin/metronidazole via the PEG tube - course 02/05-02/14 then stop
- asked egg caser to investigate if facilities will accept pt with keflex suspension
- appreciate oncology input, agree that hospice is indicated at this time and expect remitting relapsing infections will ultimately be the cause of his which is a major cause of in oncology patients; if patient transitions to hospice
recommend stopping antibiotics and treating any fevers with PRN tylenol
- stable for dc from ID perspective
Chief Complaint
-: Fever, UTI and Other (tracheitis)
Subjective / Review of Systems
afebrile
bp stable
tolerating current therapies
not responding to questions
Vital Signs / Physical Exam
Vital Signs
Vital Signs
Temp Pulse Resp BP Pulse Ox
98.7 F 100 26 131/118 96
02/09/25 04:00 02/09/25 10:00 02/09/25 10:00 02/09/25 08:00 02/09/25 10:00
Physical Exam
Constitutional: No Acute Distress and Chronically Ill
Cardiovascular: Regular Rate and S1/S2; Negative Murmur or Rub
Pulmonary: Clear and Symmetric; Negative Wheezes or Rales
Gastrointestinal: Soft, Non Tender, Non Distended and Normal Bowel Sounds
Skin: Warm and Dry; Negative Rash or Jaundice
Objective Data
Lab Data
Lab Results
02/09/25 03:33
02/09/25 03:33
PT 15.3 Sec (11.4-14.6) H 01/29/25 16:44
INR 1.16 01/29/25 16:44
APTT 25.4 Sec (23.4-35.0) 01/29/25 16:44
Estimated Creat Clear 93 ml/min 02/09/25 03:33
Total Bilirubin 0.4 mg/dl (0.2-1.3) 02/09/25 03:33
AST 17 U/L (17-59) 02/09/25 03:33
ALT 18 U/L (0-50) 02/09/25 03:33
Alkaline Phosphatase 94 U/L (38-126) 02/09/25 03:33
Most recent labs reviewed.
Micro Results:
02/01/25 18:43 Blood Culture - Final
Blood/Venous No Growth - Final Report
02/01/25 13:21 Blood Culture - Final
Blood/Venous No Growth - Final Report
02/01/25 13:10 Respiratory Culture - Final
Tracheal Aspirate Pseudomonas aeruginosa
S aureus-Methicillin Sensitive
Gram Stain - Final
02/01/25 09:58 Urine Culture - Final
Urine Enterococcus faecalis
Aerococcus Species
02/01/25 13:23 Influenza Types A & B (ROMMEL) - Final
Nasal Swab Negative for Influenza A & B, NAAT
Negative results must be combined with clinical observations
and patient history.
Nucleic Acid Amplification test (NAAT)performed on the
[employer] platform.
Care Review
Plan reviewed with: Physician (Dr Brayan bazzi)
--- NOTE | 2025-02-09 10:50 | WOUNDNOTE ---
[facility] RN note: ANDREW Marcial stated now is not a good time to see patient as he finally fell asleep. ANDREW Silverio text this automatic typewriter inspector when a good time to return is. Patient's prognosis is poor as per chart review.
--- NOTE | 2025-02-09 12:43 | CM ---
Patient with Hx Tongue cancer/SCC status post radiation/chemo, status post trach and PEG with tube feeds at home with Dx Ventilator associated pneumonia, Massive hemoptysis, Acute TME/Hospital delirium. Room air. Trach collar with suctioning.
Jevity tube feeds. Per nurse; 1:[address] for patient safety. Latest PT & OT 02/06; Skilled vs Acute, PT held 02/08, patient declined PT/OT today.
Met with patient who was sleeping.
Met with patient's brother Baltazar and spoke with Alena on speaker phone with brother present;
offered support and d/c planning with and brother.
Provided update that [facility] has declined due to his complex care needs. states she is aware that with his trach that placement in a SNF may be difficult.
says she is not ready to make a decision about hospice.
Suggested she meet with MD to discuss and offered to help coordinate meeting time- she offered after 4:30pm today, 6:30am tomorrow or after 2:30pm tomorrow.
After phone call concluded, Baltazar states that the patient cannot currently communicate his wishes either verbally or in writing due to lethargy, however he thinks he would want hospice, and Baltazar and another brother agree with hospice.
Spoke with Dr Schmidt; he agrees to meeting with at 2:30pm tomorrow.
Information re; meeting date/time relayed to .
Plan follow up after MD/family meeting tomorrow.
[2025-02-09] MEDS: KEFLEX 250 MG/5 ML 500 MG TUBE ×3 (12:44→22:30)
[2025-02-09] MEDS: CIPRO 500 MG TUBE ×2 (13:50→20:37)
--- NOTE | 2025-02-09 15:00 | WOUNDNOTE ---
[facility] RN note: Jean Claude texted RN Aggie re: will ask wound nurse Pia to check in with patient's nurse tomorrow about seeing patient. Aggie agreeable to plan and mentioned patient is currently very agitated.
--- NOTE | 2025-02-09 15:30 | HOSPNOTE ---
Spoke with spouse again about hospice and at this time the spouse feels that he may get better and does not wish for hospice. We will continue to support and follow.
--- NOTE | 2025-02-09 15:37 | PTCARENOTE ---
Patient AOx1 (self). Patient is restless, confused, agitated at times, anxious, and forgetful. PRN ativan administered per NOV. Bed alarm on and audible. 1:1 at bedside throughout shift. Patient nods head, mouths words, and writes. #[address]. Copious amount of white thick secretions. Frequent suctioning and mouth care provided. SpO2 greater than 92%. NSR-sinus tach on monitor. Wells in place draining yellow urine. Incontinent soft brown BM's. Jevity 1.5 running through PEG at
goal of 55 mL/hr with 25 mL/hr flush. Care provided to PEG tube. Call fall within reach, bed in lowest position, and bed of wheels locked.
--- NOTE | 2025-02-09 15:59 | CHAP ---
Ethics consult received. Will discuss situation with staff and attempt to talk with family. I note that a family meeting is scheduled for February 10 at 2:30pm -- unfortunately I will not be able to attend but will follow up on Sunday if
a panel needs to be called.
[2025-02-09] MEDS: ZYPREXA 5 MG TUBE (20:37)
[2025-02-09] MEDS: FLAGYL 500 MG TUBE (20:37)
[2025-02-10] VITALS (11 sets, daily range): BP systolic 109–157; BP diastolic 69–98; BMI 17.6
[2025-02-10] MEDS: ROXICODONE 15 MG TUBE ×6 (04:30→23:45)
[2025-02-10 05:25] LABS: % Basophils 0.4 % (0-2); % Eosinophils 1.2 % (0-6); % Immature Granulocytes 1.4 % (0-0.5); % Lymphocytes 4.6 % (20.5-51.1); % Monocytes 5.8 % (1.7-9.3); % Neutrophils 86.6 % (42.2-75.2); Absolute Basophils 0.1 10^3/uL (0-0.2); Absolute Eosinophils 0.2 10^3/uL (0-0.7); Absolute Immature Granulocytes 0.2 10^3/uL (0-0.05); Absolute Lymphocytes 0.6 10^3/uL (1.2-3.4); Absolute Monocytes 0.7 10^3/uL (0.1-0.6); Absolute Neutrophils 10.5 10^3/uL (1.4-6.5); Hematocrit 30.6 % (39.0-52.0); Hemoglobin 10.1 g/dL (13.0-18.0); Mean Corpuscular Hgb 30.3 pg (27.0-31.0); Mean Corpuscular Volume 91.9 fL (80.0-94.0); Mean Platelet Volume 9.1 fL (7.4-10.4); Nucleated Red Blood Cells % 0 % (-); Platelet Count 432 10^3/uL (130-400); Red Blood Cell Count 3.33 10^6/uL (4.70-6.10); Red Cell Dist. Width 14.3 % (11.5-14.5); White Blood Cell Count 12.1 10^3/uL (4.8-10.8)
[2025-02-10 05:43] LABS: Blood Urea Nitrogen 19 mg/dl (9-20); Calcium 8.4 mg/dl (8.4-10.2); Carbon Dioxide 27 mmol/L (22-30); Chloride 101 mmol/L (98-107); Estimated Creatinine Clearance 93 ml/min; Glucose 156 mg/dl (70-99); Potassium 3.9 mmol/L (3.5-5.1); Sodium 135 mmol/L (135-145); eGFR > 60.00
--- NOTE | 2025-02-10 06:05 | PTCARENOTE ---
Caring for pt overnight. NSR/ST. Tube feeds running at goal 55/hr with 25 flush. HOB 30degrees. Pt refused turns. Can be uncooperative at times but was well behaved most of the night. aaox2. Refused trach collar. RT & RN at bedside, inner cannula
cleansed. Suction done orally continously throughout night and through trach 2 times. Copious amount of thick white sputum. Rhonchi coase, loud. NO other issues at this time. Will monitor.
[2025-02-10] MEDS: SODIUM CHLORIDE 3% FOR INHALATION 1 VIAL INH (07:34)
[2025-02-10] MEDS: DUONEB 3 ML INH (07:34)
[2025-02-10] MEDS: ROBITUSSIN 400 MG TUBE ×4 (08:37→20:53)
[2025-02-10] MEDS: DELTASONE 20 MG TUBE (08:37)
[2025-02-10] MEDS: PREVACID 30 MG TUBE (08:37)
[2025-02-10] MEDS: ATIVAN 0.5 MG TUBE (08:38)
[2025-02-10] MEDS: FLAGYL 500 MG TUBE ×2 (08:38→20:52)
[2025-02-10] MEDS: LIDOCAINE 4% PATCH 1 PATCH TOPICAL (08:39)
[2025-02-10] MEDS: MIRALAX 17 GRAMS TUBE (08:42)
[2025-02-10] MEDS: CIPRO 500 MG TUBE ×2 (09:00→22:04)
--- NOTE | 2025-02-10 09:23 | W.PN.ID1 ---
Date of Service
Date of Service: February 10, 2025
Today's Communication
- c/w keflex (suspension)/ciprofloxacin/metronidazole via the PEG tube - course 02/05-02/14 then stop
- asked casework supervisor to investigate if facilities will accept pt with keflex suspension on 02/09
- one time dose of extended interval gent today
Assessment / Plan
Resolved Fevers
Tracheitis
Possible UTI
Hemoptysis- resolved
SCC of the oral cavity-s/p chemoradiation
Reported allergy to penicillin - rash
- blood cultures x2 no growth to date
- tracheal aspirate - Pseudomonas and MSSA
- has completed an adequate course of vancomycin for the E faecalis in the urine
- c/w keflex (suspension)/ciprofloxacin/metronidazole via the PEG tube - course 02/05-02/14 then stop
- asked casework supervisor to investigate if facilities will accept pt with keflex suspension on 02/09
- one time dose of extended interval gent today
- appreciate oncology input, agree that hospice is indicated at this time and expect remitting relapsing infections will ultimately be the cause of his which is a major cause of in oncology patients (60%+ in some studies); if patient
transitions to hospice recommend stopping antibiotics and treating any fevers with PRN tylenol
- stable for dc from ID perspective
Chief Complaint
-: Fever, UTI and Other (tracheitis)
Subjective / Review of Systems
afebrile
bp stable
note that patient has been refusing care and removing devices
Vital Signs / Physical Exam
Vital Signs
Vital Signs
Temp Pulse Resp BP Pulse Ox
99.7 F 107 19 153/98 98
02/10/25 07:20 02/10/25 07:41 02/10/25 07:41 02/10/25 04:00 02/10/25 07:41
Physical Exam
Constitutional: No Acute Distress and Chronically Ill
Cardiovascular: Regular Rate
Pulmonary: Symmetric, Rales and Non Labored
Gastrointestinal: Non Distended
Skin: Dry; Negative Rash or Jaundice
Neurological: Awake
Psychological: Calm
Objective Data
Lab Data
Lab Results
02/10/25 04:53
02/10/25 04:53
PT 15.3 Sec (11.4-14.6) H 01/29/25 16:44
INR 1.16 01/29/25 16:44
APTT 25.4 Sec (23.4-35.0) 01/29/25 16:44
Estimated Creat Clear 93 ml/min 02/10/25 04:53
Total Bilirubin 0.4 mg/dl (0.2-1.3) 02/09/25 03:33
AST 17 U/L (17-59) 02/09/25 03:33
ALT 18 U/L (0-50) 02/09/25 03:33
Alkaline Phosphatase 94 U/L (38-126) 02/09/25 03:33
Most recent labs reviewed.
Micro Results:
02/01/25 13:10 Respiratory Culture - Final
Tracheal Aspirate Pseudomonas aeruginosa
S aureus-Methicillin Sensitive
Gram Stain - Final
02/01/25 18:43 Blood Culture - Final
Blood/Venous No Growth - Final Report
02/01/25 13:21 Blood Culture - Final
Blood/Venous No Growth - Final Report
02/01/25 09:58 Urine Culture - Final
Urine Enterococcus faecalis
Aerococcus Species
02/01/25 13:23 Influenza Types A & B (ROMMEL) - Final
Nasal Swab Negative for Influenza A & B, NAAT
Negative results must be combined with clinical observations
and patient history.
Nucleic Acid Amplification test (NAAT)performed on the
[employer] platform.
Care Review
Plan reviewed with: Physician (Dr Román enrique; Dr Brayan bazzi)
--- NOTE | 2025-02-10 09:25 | W.PN.PUL3 ---
Today's Communication / Plan
-
MS improved today, able to carry on appropriate conversation
He has been refusing treatment, refused vent
I encouraged him to write down his wishes to express to his
Ethics consult placed, family mtg later today
We are available for any upcoming mtgs if our service is needed, otherwise will sign off at this time
Please call if our presence is needed for family discussions
Assessment
-
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 Patient at baseline has a known cough to
tracheostomy tube. Reportedly bleeding developed the night before and patient was bringing up blood per mouth, no bleeding from the tracheostomy site however. Patient also has a diagnosis of prostate cancer s/p radiation and TURP, follows at [facility].
He is enrolled in outpatient [facility] care. In the emergency room patient had a CT PE which was negative for any pulmonary embolism. Subsequently patient had the tracheostomy tube changed to a cuffed Shiley 6.0 and patient was connected to mechanical
ventilation. Patient is being admitted to the ICU for further management and pricing manager service was consulted for further input.
Hemoptysis - now resolved s/p packing via ENT + nebulized TXA
Acute hypoxic respiratory failure, at baseline s/p tracheostomy on trach collar
Fever -due to Pseudomonas pneumonia
Acute delirium
Severe protein calorie malnutrition, FTT
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
Former smoker, 40 PY
Emphysema
6 mm pulmonary nodule
History of squamous cell carcinoma, tongue, status post chemotherapy and radiation.
Prostate cancer s/p Lupron
Percutaneous endoscopic gastrostomy status
2-vessel coronary artery disease
Insomnia
Alcohol abuse
Noncompliance with health related screening/preventions
Plan
Suspect this was originating from upper airway likely the tumor bed. S/p packing by ENT service 01/29, packing removed 01/30.
Packing removed 01/30, no further bleeding noted. ENT to see PRN
Serial H&H stable.
Avoid antiplatelets and anticoagulants
Last day of nebulized TXA on 02/02
Resolved
Patient is s/p tracheostomy as well as PEG tube
Patient at baseline wears a cough flex Portex 8.0 tracheostomy tube with trach collar--back to baseline/no vent
Airway clearance continued --cofflator, Mucinex to 400mg QID
Speech pathology following for trach assessments, PMV
Continue PT/OT
Aspiration precautions
Blood gas checked on evening of 02/04 while on trach collar all day, and showed stable pCO2 at 42 with pH 7.46
Continue with trach collar and monitor respiratory status, SpO2 and work of breathing, and as long as he is saturating >90% and not in respiratory distress would keep on trach collar
Follows up with Dr. Galvan at [facility] as well as [facility] --> oncology consulted on 02/02
Patient was scheduled to start a second line chemotherapy on 01/29 - was sent to emergency room for hemoptysis
Patient is on prednisone as an outpatient, likely to reduce swelling from his head and neck cancer - resumed prednisone 20mg daily/baseline dose
Given his poor functional status, he is not a candidate for additional chemotherapy per oncology. He is hospice appropriate. This will be an ongoing discussion
Sputum culture positive for hamilton-sensitive Pseudomonas aeruginosa + MSSA
Started on cefepime on 02/01
Follow-up blood cultures collected 02/01/2025 which shows NGTD
Of note, urine culture also positive for Enterococcus faecalis + Aerococcus species--> patient currently on cefepime + IV vancomycin and ID added IV Flagyl on 02/05.
ID following, changed to Cipro, Kelfex and Flagyl PO
MS seems improved today
Remains on 1:1
Refusing treatments
Reported significant secretions at baseline, ?Chronic bronchitis.
Extensive smoking history and emphysema on imaging. Suspect underlying COPD
H/O Smoking, more then 40 pack year smoking history--Patient quit in 05/2024
Continue DuoNebs +3% BID with prn doses in between
Continue lansoprazole for GI prophylaxis
SCDs for DVT prophylaxis
Family Discussions
Guarded prognosis � goals of care discussion warranted here. wants the patient to continue with medical treatment to get better so that she he can resume treatment for his tongue SCC. Per oncology, functional status is too poor for
chemotherapy to resume. Radiation therapy is an option although unclear if he has the strength to make it to future treatment appointments. He is hospice appropriate. On 02/04 he was saying that he wants to go home however family has not yet
agreed to this
Of note, patient is hospice appropriate but has not officially been transitioned to hospice yet. This will be an ongoing discussion.
Reviewed case with primary team, has not been agreeing to hospice care, defer to team for ongoing discussions
Consider ethics consult if there still seems disagreement with patient's wishes
02/10 ethics has been consulted, fam sdquentin slated for 2PM today. I implored patient to write down his wishes on paper so his may read this. We discussed that if he does not make his wishes known to her she is not acting in his best interest. He
understands.
Data:
CTA Neck: 01/2025: 1. New 1.8 cm irregular shaped air-filled cavity in the right side of the oropharynx which could be secondary to interval surgical resection of tongue carcinoma or tumor necrosis.
2. Irregular shaped regions of enhancing soft tissue in the left oropharynx and posterior right oropharynx and hand iii cutter space. Diagnostic possibilities are (1) tumor infiltration or (2) post therapy edema.
3. 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
4. Tracheostomy tube in place.
5. Moderate bilateral upper lobe emphysema.
6. 6 mm solid pulmonary nodule in the right upper lobe which could be a pulmonary metastasis or infectious/inflammatory pulmonary nodule.
7. Severe multilevel cervical discogenic degenerative disease with multilevel disc-osteophyte complexes causing mild spinal cord compression and central canal stenosis.
8. Less than 50% diameter stenosis in both internal carotid arteries.
CT-PE 01/2025: No evidence of central pulmonary embolism. Changes of emphysema again seen. No findings in the lung parenchyma bilaterally to suggest hemorrhage. Mild pericardial thickening versus tiny pericardial effusion, decreased. Small portion
of the included abdomen significantly obscured by beam hardening artifact from the patient's bilateral upper extremities. At least one small left renal cyst.
ECHO 04/2024: Normal left ventricular size, wall thickness and systolic function. No regional wall motion abnormalities are seen. LV ejection fraction is 60-65% by Coto's method of discs. Normal diastolic function. Normal right ventricular size
and function. Trace tricuspid regurgitation. Estimated pulmonary artery pressure of 20-25 mmHg, assuming a right atrial pressure of 3 mmHg. No significant valvular disease. No prior study available for comparison.
-----
Total time spent today was 55 minutes for this encounter. Time includes reviewing laboratory test/imaging results, reviewing pertinent medical records, obtaining and reviewing medical history, performing an appropriate exam, ordering medications,
tests and procedures. Time also includes documentation of this encounter, coordinating patient care and communicating with other healthcare professionals. Total time does not include separately billed tests performed on this date of service.
Subjective Data
-
Date of Service:
Date of Service: February 10, 2025
Chief Complaint: Pulmonary Follow Up
Subjective:
Very calm and lucid today, able to answer me appropriately
No new complaints
Does not wish to continue treatment
Objective Data
Data Reviewed
Vital Signs / I&O / Oxygen:
Vital Signs
Temp Pulse Resp BP Pulse Ox
99.7 F 107 19 153/98 98
02/10/25 07:20 02/10/25 07:41 02/10/25 07:41 02/10/25 04:00 02/10/25 07:41
Intake and Output
02/09/25 02/10/25 02/11/25
06:59 06:59 06:59
Intake Total 1360 / 1360 800 / 800
Output Total 2049 / 2299
Balance -690 / -690 -1500 / -1500
SaO2 [CPAP/PSV] 97
SaO2 [A/C] 95
SaO2 98
Nasal Cannula flow liters per 3
minute
Physical Exam
General: Respiratory Distress (negative), Comfortable, Chills (negative) and Sweats (negative)
HEENT: Normocephalic, Anicteric and Tracheotomy (PMV, trach collar)
Cardiovascular: S1-S2, Regular Rhythm and Peripheral Edema (negative)
Respiratory: Wheeze (negative), Rhonchi (Bilateral, mild), Non-Labored Respirations and Stridor (negative)
GI: Soft, Non Distended, Non Tender and Normal Bowel Sounds
Neurology: Tremors (negative), Lethargic and Other (Confused/agitated at times)
Skin: Warm, Dry, Cyanosis (negative) and Jaundice (negative)
Labs/Micro/Reports
Lab Data
02/10/25 04:53
02/10/25 04:53
Microbiology
02/01/25 13:10 Tracheal Aspirate Respiratory Culture - Final
Pseudomonas aeruginosa
S aureus-Methicillin Sensitive
02/01/25 13:10 Tracheal Aspirate Gram Stain - Final
02/01/25 18:43 Blood/Venous Blood Culture - Final
No Growth - Final Report
[2025-02-10] MEDS: TYLENOL ORAL SOLUTION 650 MG TUBE (10:54)
[2025-02-10] MEDS: KEFLEX 250 MG/5 ML 500 MG TUBE ×4 (10:55→20:56)
[2025-02-10] MEDS: GENTAMICIN 109.5 MG IV (10:55)
--- NOTE | 2025-02-10 11:19 | PTOTSP ---
Speech Therapy
Cuff is deflated and patient is now communicating effectively though with some listener burden. Patient continues with copious secretions which do not allow for speaking valve trial. Tracheal suctioning is needed throughout day. As patient is not
managing secretions/high risk for aspiration, oral trials will not be attempted. Patient receiving nutrition through PEG tube.
Recommend:
1. Continue NPO pending outcome of family meeting/GOC decisions.
2. No further ST needs at this time. Reconsult if patient is able to manage secretions more effectively.
--- NOTE | 2025-02-10 12:05 | WOUNDNOTE ---
WON RN note: Patient admitted with hemoptysis.
See H&P for complete history. Lives with at home, has VN.
PMH:Prostate cancer-Turp, squamous cell oral cancer- chemo/radiation/trach, feeding tube.
Wound Location and type/assessment: Patient known to service, admitted with: almost healed chronic ulcer underneath distal trach plate and healed ulcer under jaw/neck. Patient has been going to [facility] regularly for wound care. Trach was exchange to
katiuska Vadlovinos by ENT, using split drainage gauze under trach. Mucous drainage on gauze, moist over healing wound. Patient has frequent coughing fits requiring suctioning. Patient just repositioned and did not want to turn again, complaining of a
head ache. Nurse Mclean and PCT at bedside, confirmed sacrum and heels are intact, protective foams in use.
Appetite: NPO, Tube feeds.
Pressure redistribution devices in place: On Centrella air bed, Pillow under calves.
Plan: Today cleaned ulcer with warm water, patted dry then skin prepped periwound. Small Exuderm thin placed over ulcer. Split drainage sponge placed over dressing and under trach ties, PCT assisted. Will confirm orders with hospitalist and updated
nurse Mclean. Updated care plan and will follow as needed.
Note to case management of equipment requested for discharge: None.
Recommend follow up at wound care center upon discharge.
--- NOTE | 2025-02-10 12:18 | W.PN.HOSP.TC ---
Addendum entered and electronically signed by Jamar Schmidt MD 02/10/25 16:50:
Had a lengthy discussion with family at bedside that included , 's friend, and Nba's brothers Jax and Baltazar. At this time no decision has been made in terms of comfort care or hospice. Want to continue on the same path. Wants to
await daughter's arrival from [place] that should have been on to further discuss amongst family next steps.
Original Note:
Today's Communication/Plan
-
Continue antibiotics-Keflex/ciprofloxacin/metronidazole via PEG tube per ID recommendations
Continue tracheal suctioning.
Hospice goals of care discussion meeting pending at 2:30 PM today.
Assessment / Plan
Assessment / Plan
Assessment-
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
hypoglossal nerve tumor bed.
Plan-
Ventilator associated pneumonia-
S/p AVR DF for massive hemoptysis, fevers with purulent green sputum
Respiratory cultures consistent with MSSA and Pseudomonas aeruginosa (obtained from tracheostomy tube)-was started on vancomycin, cefepime and Flagyl.
ID on board, ID addressing antibiotics. Appreciate ID input.
ID switched the patient to Keflex, ciprofloxacin and metronidazole via PEG tube course from 02/05 through 02/14 and then stop.
Currently patient not hypoxemic respiratory status at baseline, fevers improving.
No leukocytosis, no fever since 02/07/2025.
Trend CBC and monitor temperature curve
ID planning on at least 7 days of antibiotics.
Given underlying baseline COPD (although no official diagnosis), but noted emphysema on CT-SpO2 goal to be 88-94%
Currently patient saturations greater than 90% on trach collar.
ENT's plan is to get Passy-[place] valve when patient improves.
Massive hemoptysis-resolved
Acute blood loss anemia-
Secondary to massive hemoptysis from the tumor site s/p 1 unit PRBC
SCC of the tongue base
Requiring intubation for airway protection. Received 1 unit of PRBC for bleeding s/p TXA.
TXA discontinued on 02/03.
Oncology consulted, no longer a candidate for chemotherapy per oncology.
Poor prognosis at this point of time, ongoing goals of care discussion with .
Radiation oncology recommended palliative radiation therapy to temporize bleeding in case patient rebleeds.
Trend CBC and monitor for recurrent bleeding.
Acute toxic metabolic encephalopathy-
Suspect hospital-acquired delirium in conference with cefepime.
Multifactorial-confluence of critical disease, infection, antibiotic.
Delirium present even before starting patient on cefepime.
Added as needed Zyprexa, 1-1.
Restraints as needed, but recommend refraining from using restraints.
Restraints may worsen patient's agitation.
Hypokalemia-
Resolved.
S/p potassium supplementation-40 mEq
Trend potassium and replete as needed.
Hyponatremia-
Serum sodium of 134.
Likely hypovolemic hyponatremia.
Continue trending serum sodium.
Emphysema on CT scan, pulmonary nodule of 6 mm
Copious amounts of tracheostomy secretions-
Likely a confluence of infection and decreased clearance from the tumor burden.
Currently patient on DuoNebs, suctioning, Cofflator since 02/07, and Mucinex at 400 4 times daily.
Appreciate pulmonology input. Pulmonology also recommends hospice.
Continue PT OT. Continue aspiration precautions.
GI prophylaxis-on lansoprazole
Tracheostomy tube-
PEG tube-
Secondary to obstructive SCC at the base of the tongue
Previously on trocar 8, changes his cannula twice a day at home.
Currently on Shiley 6. ENT plans back for trocar right at the time of discharge.
Failed Pass[place] valve trials before. Planning for Pass[place] valve.
Continue with tube feedings as tolerated, n.p.o. except for ice chips.
Chronic pain syndrome-
Due to malignancy, opioid dependence
Continue home medication regimen
Continue 135 morphine milliequivalents per day
Added Dilaudid for moderate and severe pain.
Cachexia-
Severe protein calorie malnutrition based on muscle mass and temporal wasting.
Decreased consumption of oral intake-greater than 20%
BMI at 18.0, currently on Jevity 1.53 times a day.
DVT prophylaxis-SCDs
CODE STATUS-limited DNR (no chest compressions)
Goals of care discussion-
Patient clearly stated his wishes that he is not comfortable and wants only comfort care. He does not want to pursue treatments any further. Oncology assessed the patient and did remind him not a candidate for chemotherapy anymore given the acuity
of his conditions and infections. Intensive care, primary hospital medicine team, oncology, -discussed prognosis with the patient family multiple times over the last week with no result of decision making from his . wants to pursue all
treatments at any cost. Medical ethics consult placed to resolve the conflict in decision making. Will continue to encourage patient's spouse and patient to make informed decisions on hospice/comfort care.
Ethics consult placed, through discussion ethics found out that family is also likely on page with hospice. Ethics recommended family to write down patient's hospice wishes and goals. This will be processed during the 2:30 PM meeting today. Will
add an addendum following the 2:30 PM meeting.
Hospice meeting with the family today at 2:30 PM.
Poor prognosis as determined by all specialists.
Anticipated Discharge: 24 - 48 hours
Subjective/Interval History
-
Date of Service: February 10, 2025
Patient is happy, states that he feels better, and is frustrated that he does not have a trach collar of right size. The wrong trach collar size is causing him pain.
Objective Data
-
Labs:
Laboratory Results
02/10/25
04:53
WBC 12.1 H
Hgb 10.1 L
Hct 30.6 L
Plt Count 432 H
Sodium 135
Potassium 3.9
Chloride 101
Carbon Dioxide 27
BUN 19
Creatinine 0.5 L
Glucose 156 H
Calcium 8.4
Vital Signs:
Vital Signs
Temp Pulse Resp BP Pulse Ox
98.1 F 103 18 157/80 95
02/10/25 11:05 02/10/25 10:00 02/10/25 10:00 02/10/25 10:00 02/10/25 10:22
I&O
02/09/25 02/10/25 02/11/25
06:59 06:59 06:59
Intake Total 1360 / 1360 800 / 800
Output Total 2049 / 2049 2300 / 2300
Balance -690 / -690 -1500 / -1500
Review of Systems
-
History Source: Patient
Constitutional: Reports No Symptoms
Respiratory: Reports No Symptoms
Cardiac: Reports No Symptoms
Abdomen/GI: Reports No Symptoms
Genitourinary: Reports No Symptoms
Musculoskeletal: Reports No Symptoms
Neuro: Reports No Symptoms
Hematologic / Lymphatic: Reports No Symptoms
Allergy / Immunology: Reports No Symptoms
Physical Exam
-
General: No Apparent Distress and Comfortable
HEENT: Moist Mucous Membranes and [place] Conjunctivae
Respiratory: Wheezes and Crackles; Negative Rales or Rhonchi
Cardiac: Regular Rhythm and S1/S2; Negative Murmur, Rub or Gallop
GI: Soft, Nontender, Nondistended and Normal Bowel Sounds
Musculoskeletal: No Clubbing, No Cyanosis, Edema, Right Lower Extrem and Edema, Left Lower Extrem
Skin: Warm
Psych: Calm
Data Reviewed
-
Labs: Labs Reviewed by me and Discussed with Physician
--- NOTE | 2025-02-10 15:11 | CM ---
Patient with Hx Tongue cancer/SCC status post radiation/chemo, status post trach and PEG with tube feeds at home with Dx Ventilator associated pneumonia, Massive hemoptysis, Acute TME/Hospital delirium. Room air. Trach collar with suctioning.
Jevity tube feeds. Per nurse; 1:[address] for patient safety. Latest PT & OT 02/06; Skilled vs Acute, PT held 02/08, patient declined PT/OT 02/09 and today.
Family Meeting for goals of care discussion with Dr Schmidt, Resident Flex, [facility], patient, , patient's brother Baltazar, another brother and family friend, with daughter on speaker phone;
presented patient's status and provided prognosis to patient/family.
Patient was asked by MD if he wants further active treatment vs hospice; patient and chose not to decide today.
requested she meet with patient tomorrow after 2:30 with PT/OT to see if patient could participate in rehab.
Family was made aware that patient has made several statements to the hospital team indicating his desire for hospice.
CM mentioned to patient and family that SNF placement for rehab, for patient with complex medical needs including trach, may be difficult in obtaining an accepting facility, and may necessitate request for higher level of care facility that is not
local.
Coordinated meeting with PT/OT and for tomorrow 2:30pm.
Per Dr Schmidt; they will reach out to Ethics Committee Chair Emilia to request Ethics Committee Meeting.
Plan follow up if Ethics Committee Meeting is scheduled.
Plan follow up after patient works with PT/OT tomorrow with observing.
--- NOTE | 2025-02-10 20:00 | PTCARENOTE ---
day shift note. see nursing assessment. pt suctioned numerous times throughout shift for thick white sputum. area under trach collar checked by woc rn and foam dressing intact. one to one observation maintained for safety, tolerating tube
feedings.sats in high 90s on room air.
[2025-02-10] MEDS: DUONEB INH (20:15)
[2025-02-10] MEDS: SODIUM CHLORIDE 3% FOR INHALATION INH (20:16)
[2025-02-10] MEDS: ZYPREXA 5 MG TUBE (20:53)
--- NOTE | 2025-02-10 22:00 | PTCARENOTE ---
Assumed care of pt from dayshift RN. 98% on RA. Pt has a frequent productive cough. Pt suctioned throughout shift. NSR on monitor. Wells in place draining yellow urine. Pt aaox2 (not to place). Pt is confused and restless. Pt on one to one
observation by hospital associate. Hygiene complete and pt is now resting in bed with call fall in reach and one to one at bedside.
[2025-02-11] VITALS (16 sets, daily range): BP systolic 117–157; BP diastolic 73–101; PULSE 102–107; O2SAT 97–98
--- NOTE | 2025-02-11 | RESPNOTE ---
PT pulled out his trach at this time. HAIR MIXER was called to the room, along with respiratory and RNs and trach was re-placed at this time by RT with the ok from the HAIR MIXER. Trach was placed with the obturator in place without incident, and inner cannula
was placed after. Fresh trach ties were placed and PT was suctioned. Site remained dry and clean and no blood was reported.
--- NOTE | 2025-02-11 01:26 | PTCARENOTE ---
This RN was notified that pt had removed trach. Pt 98% on RA. No signs of respiratory distress. Emely, BONBON DIPPER and RT therapists both made aware. BONBON DIPPER and RT came to bedside. New trach now in place.
--- NOTE | 2025-02-11 01:29 | PTCARENOTE ---
This RN was notified that pt had removed trach. Pt 98% on RA. No signs of respiratory distress. Emely, HEAD INSPECTOR and RT made aware, both of whom came to bedside. New trach now in place.
--- NOTE | 2025-02-11 01:42 | W.PN.UPDATE ---
Update Note
Progress Note Update
Notified by nurse that pt pulled out his trach. Pt maintaining airway despite this. Respiratory at bedside was able to reinsert.
Unclear whether he did on purpose or by accident. 1:1 at [facility] stated she thought he was itching and then he had it out.
[2025-02-11] MEDS: DESYREL 50 MG TUBE ×2 (01:48→21:43)
[2025-02-11] MEDS: ROXICODONE 15 MG TUBE ×2 (03:52→10:25)
[2025-02-11 04:40] LABS: % Basophils 0.4 % (0-2); % Eosinophils 1.2 % (0-6); % Immature Granulocytes 1.2 % (0-0.5); % Lymphocytes 4.2 % (20.5-51.1); % Monocytes 6.6 % (1.7-9.3); % Neutrophils 86.4 % (42.2-75.2); Absolute Eosinophils 0.1 10^3/uL (0-0.7); Absolute Immature Granulocytes 0.1 10^3/uL (0-0.05); Absolute Lymphocytes 0.5 10^3/uL (1.2-3.4); Absolute Monocytes 0.7 10^3/uL (0.1-0.6); Absolute Neutrophils 9.5 10^3/uL (1.4-6.5); Hematocrit 28.5 % (39.0-52.0); Hemoglobin 9.5 g/dL (13.0-18.0); Mean Corp Hgb Conc. 33.3 g/dL (33.0-37.0); Mean Corpuscular Hgb 30.5 pg (27.0-31.0); Mean Corpuscular Volume 91.6 fL (80.0-94.0); Mean Platelet Volume 9.2 fL (7.4-10.4); Nucleated Red Blood Cells % 0 % (-); Platelet Count 410 10^3/uL (130-400); Red Blood Cell Count 3.11 10^6/uL (4.70-6.10); Red Cell Dist. Width 14.4 % (11.5-14.5)
[2025-02-11 05:04] LABS: Blood Urea Nitrogen 17 mg/dl (9-20); Calcium 8.3 mg/dl (8.4-10.2); Carbon Dioxide 29 mmol/L (22-30); Chloride 99 mmol/L (98-107); Estimated Creatinine Clearance 91 ml/min; Glucose 147 mg/dl (70-99); Potassium 3.7 mmol/L (3.5-5.1); Sodium 135 mmol/L (135-145); eGFR > 60.00
[2025-02-11] MEDS: DUONEB 3 ML INH ×2 (07:52→19:47)
[2025-02-11] MEDS: SODIUM CHLORIDE 3% FOR INHALATION 1 VIAL INH ×2 (07:53→19:46)
--- NOTE | 2025-02-11 09:11 | W.PN.ID1 ---
Date of Service
Date of Service: February 11, 2025
Today's Communication
- recommend hospice - patient is communicative of his wishes and his decision seems to have consistent through time thus far. I suspect he could write a rational for his wishes. If patient transitions to hospice would stop antibiotics and treat
fevers with PRN tylenol.
- I am available for family discussions or ethics meetings PRN. ID service will no longer actively follow this patient please recall for further questions.
Assessment / Plan
Resolved Fevers
Tracheitis
Possible UTI
Hemoptysis- resolved
SCC of the oral cavity-s/p chemoradiation
Reported allergy to penicillin - rash
- blood cultures x2 no growth to date
- tracheal aspirate - Pseudomonas and MSSA
- has completed an adequate course of vancomycin for the E faecalis in the urine
- c/w keflex (suspension)/ciprofloxacin/metronidazole via the PEG tube - course 02/05-02/14 then stop
- had one time dose of extended interval gent 02/10
- recommend hospice - patient is communicative of his wishes and his decision seems to have consistent through time thus far. I suspect he could write a rational for his wishes. If patient transitions to hospice would stop antibiotics and treat
fevers with PRN tylenol.
- I am available for family discussions or ethics meetings PRN. ID service will no longer actively follow this patient please recall for further questions.
Chief Complaint
-: UTI and Other (tracheitis)
Subjective / Review of Systems
remains afebrile
bp stable
patient pulled out his trache last night; it was reinserted by respiratory
patient and family wishes seem to be at odds
's comment to me 'he looks so much better'
Vital Signs / Physical Exam
Vital Signs
Vital Signs
Temp Pulse Resp BP Pulse Ox
97.8 F 102 24 146/73 96
02/11/25 07:06 02/11/25 08:12 02/11/25 08:12 02/11/25 08:12 02/11/25 08:16
Physical Exam
Constitutional: Chronically Ill and Non-toxic
Cardiovascular: Regular Rate and S1/S2; Negative Murmur or Rub
Pulmonary: Clear and Symmetric; Negative Wheezes or Rales
Gastrointestinal: Soft, Non Tender, Non Distended and Normal Bowel Sounds
Skin: Warm and Dry; Negative Rash or Jaundice
Objective Data
Lab Data
Lab Results
02/11/25 03:52
02/11/25 03:52
PT 15.3 Sec (11.4-14.6) H 01/29/25 16:44
INR 1.16 01/29/25 16:44
APTT 25.4 Sec (23.4-35.0) 01/29/25 16:44
Estimated Creat Clear 91 ml/min 02/11/25 03:52
Total Bilirubin 0.4 mg/dl (0.2-1.3) 02/09/25 03:33
AST 17 U/L (17-59) 02/09/25 03:33
ALT 18 U/L (0-50) 02/09/25 03:33
Alkaline Phosphatase 94 U/L (38-126) 02/09/25 03:33
Most recent labs reviewed.
Micro Results:
02/01/25 13:10 Respiratory Culture - Final
Tracheal Aspirate Pseudomonas aeruginosa
S aureus-Methicillin Sensitive
Gram Stain - Final
02/01/25 18:43 Blood Culture - Final
Blood/Venous No Growth - Final Report
02/01/25 13:21 Blood Culture - Final
Blood/Venous No Growth - Final Report
02/01/25 09:58 Urine Culture - Final
Urine Enterococcus faecalis
Aerococcus Species
02/01/25 13:23 Influenza Types A & B (ROMMEL) - Final
Nasal Swab Negative for Influenza A & B, NAAT
Negative results must be combined with clinical observations
and patient history.
Nucleic Acid Amplification test (NAAT)performed on the
[employer] platform.
[2025-02-11] MEDS: ATIVAN 0.5 MG TUBE (09:44)
[2025-02-11] MEDS: FLAGYL 500 MG TUBE ×2 (09:44→20:30)
[2025-02-11] MEDS: CIPRO 500 MG TUBE ×2 (09:44→21:38)
[2025-02-11] MEDS: DELTASONE 20 MG TUBE (09:44)
[2025-02-11] MEDS: ROBITUSSIN 400 MG TUBE ×4 (09:45→21:38)
[2025-02-11] MEDS: KEFLEX 250 MG/5 ML 500 MG TUBE ×4 (09:45→21:38)
[2025-02-11] MEDS: LIDOCAINE 4% PATCH 1 PATCH TOPICAL (09:46)
[2025-02-11] MEDS: MIRALAX 17 GRAMS TUBE (09:46)
--- NOTE | 2025-02-11 09:47 | HOSPNOTE ---
We will continue to follow if hospice is wanted.
--- NOTE | 2025-02-11 10:00 | PTCARENOTE ---
Assumed care of patient this AM. Was given report of the nights events. Apparently patient accidently pulled trach out. No respiratory distress was reported and new trach in place. Patient #6 shiley with trach collar and no supplemental oxygen.
Pulse ox has been 97%-99%. 1:1 supervision d/c for day shift. Patient's in room at bedside. Patient is calm and appropriate. Patient gets more confused and agitated at night time. Will check on patient frequently and resume 1:1 at night
shift.
[2025-02-11] MEDS: PREVACID 30 MG TUBE (10:25)
--- NOTE | 2025-02-11 13:08 | W.PN.HOSP.TC ---
Addendum entered and electronically signed by Jamar Schmidt MD 02/12/25 13:06:
Ventilator associated pneumonia with respiratory cultures growing MSSA Pseudomonas present cefepime and Flagyl eventually transition to Keflex Cipro metronidazole Flagyl PEG tube last planned dose on 02/14/2025.
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 Unfortunately, deemed not a candidate for additional systemic therapy with chemotherapy at this time per oncology is considered a end-stage condition
Hypokalemia resolved
Original Note:
Today's Communication/Plan
-
Continue antibiotics.
Zyprexa up to 10 mg in the night.
Oxycodone dose bumped to 20 mg Q4 hourly.
Dilaudid 1 mg discontinued.
Dilaudid 0.5 mg as needed.
Assessment / Plan
Assessment / Plan
Assessment-
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
hypoglossal nerve tumor bed.
Plan-
Ventilator associated pneumonia-
S/p AVR DF for massive hemoptysis, fevers with purulent green sputum
Respiratory cultures consistent with MSSA and Pseudomonas aeruginosa (obtained from tracheostomy tube)-was started on vancomycin, cefepime and Flagyl.
ID on board, ID addressing antibiotics. Appreciate ID input.
Currently patient on Keflex, ciprofloxacin and metronidazole via PEG tube course from 02/05 through 02/14 and then stop.
Currently patient not hypoxemic respiratory status at baseline, fevers improving.
No leukocytosis, no fever since 02/07/2025.
Trend CBC and monitor temperature curve
ID planning on at least 7 days of antibiotics.
Given underlying baseline COPD (although no official diagnosis), but noted emphysema on CT-SpO2 goal to be 88-94%
Currently patient saturations greater than 90% on trach collar.
ENT's plan is to get Passy-Stratton valve when patient improves.
Massive hemoptysis-resolved
Acute blood loss anemia-
Secondary to massive hemoptysis from the tumor site s/p 1 unit PRBC
SCC of the tongue base
Requiring intubation for airway protection. Received 1 unit of PRBC for bleeding s/p TXA.
TXA discontinued on 02/03.
Oncology consulted, no longer a candidate for chemotherapy per oncology.
Poor prognosis at this point of time, ongoing goals of care discussion with .
Radiation oncology recommended palliative radiation therapy to temporize bleeding in case patient rebleeds.
Trend CBC and monitor for recurrent bleeding.
Acute toxic metabolic encephalopathy-
Suspect hospital-acquired delirium in conference with cefepime.
Multifactorial-confluence of critical disease, infection, antibiotic.
Delirium present even before starting patient on cefepime.
Added as needed Zyprexa, 1-1.
Restraints as needed, but recommend refraining from using restraints.
Restraints may worsen patient's agitation.
Hypokalemia-
Resolved.
S/p potassium supplementation-40 mEq
Trend potassium and replete as needed.
Hematuria -
Suspect secondary to radiation from prostrate
Will reassess to remove the Wells catheter.
CBC and urine analysis, culture.
Hyponatremia-
Serum sodium of 134.
Likely hypovolemic hyponatremia.
Continue trending serum sodium.
Emphysema on CT scan, pulmonary nodule of 6 mm
Copious amounts of tracheostomy secretions-
Likely a confluence of infection and decreased clearance from the tumor burden.
Currently patient on DuoNebs, suctioning, Cofflator since 02/07, and Mucinex at 400 4 times daily.
Appreciate pulmonology input. Pulmonology also recommends hospice.
Continue PT OT. Continue aspiration precautions.
GI prophylaxis-on lansoprazole
Tracheostomy tube-
PEG tube-
Secondary to obstructive SCC at the base of the tongue
Previously on trocar 8, changes his cannula twice a day at home.
Currently on Shiley 6. ENT plans back for trocar right at the time of discharge.
Failed Passy-Stratton valve trials before. Planning for Passy-Marilee valve.
Continue with tube feedings as tolerated, n.p.o. except for ice chips.
Chronic pain syndrome-
Due to malignancy, opioid dependence
Continue home medication regimen
Continue 135 morphine milliequivalents per day
Added Dilaudid for moderate and severe pain.
Cachexia-
Severe protein calorie malnutrition based on muscle mass and temporal wasting.
Decreased consumption of oral intake-greater than 20%
BMI at 18.0, currently on Jevity 1.53 times a day.
DVT prophylaxis-SCDs
CODE STATUS-limited DNR (no chest compressions)
Goals of care discussion-
Yesterday around 2:30 PM, Dr. Schmidt my supervising provider and our hospital medicine team along with patient case coordinator representing a family meeting in conversation surrounding hospice, and helping the family, with the decision of hospice. Given
patient's projected prognosis is 3 to 6 months, his oncology deemed him no more a candidate for chemotherapy, and his tracheal secretions, infection not being [id number] unfortunately had recurrent risk of infections from his trach collar
with poor prognosis. Family wants to proceed with giving physical therapy at [facility] and see if he is able to gain his strength back before making the decision of hospice. Family would be able to come to a decision on per . Relayed
information to medical ethics as well. Today medical ethics follow-up consult on hold in the prospects that family may come with the decision by tomorrow. Will follow-up with hospice and medical ethics discussions tomorrow.
Patient clearly stated his wishes that he is not comfortable and wants only comfort care. He does not want to pursue treatments any further. Oncology assessed the patient and did remind him not a candidate for chemotherapy anymore given the acuity
of his conditions and infections. Intensive care, primary hospital medicine team, oncology, -discussed prognosis with the patient family multiple times over the last week with no result of decision making from his . wants to pursue all
treatments at any cost. Medical ethics consult placed to resolve the conflict in decision making. Will continue to encourage patient's spouse and patient to make informed decisions on hospice/comfort care.
Ethics consult placed, through discussion ethics found out that family is also likely on page with hospice. Ethics recommended family to write down patient's hospice wishes and goals. This will be processed during the 2:30 PM meeting today. Will
add an addendum following the 2:30 PM meeting.
Poor prognosis as determined by all specialists.
Anticipated Discharge: > 48 hours
Subjective/Interval History
-
Date of Service: February 11, 2025
Overnight patient had an episode of agitation, pulled his tracheostomy out which was placed again in the a.m. Patient is refusing suction of his trach secretions per nurse.
Objective Data
-
Labs:
Laboratory Results
02/11/25
03:52
WBC 11.0 H
Hgb 9.5 L
Hct 28.5 L
Plt Count 410 H
Sodium 135
Potassium 3.7
Chloride 99
Carbon Dioxide 29
BUN 17
Creatinine 0.5 L
Glucose 147 H
Calcium 8.3 L
Vital Signs:
Vital Signs
Temp Pulse Resp BP Pulse Ox
99.4 F 105 25 139/95 97
02/11/25 11:12 02/11/25 10:00 02/11/25 10:00 02/11/25 10:00 02/11/25 10:00
I&O
02/10/25 02/11/25 02/12/25
06:59 06:59 06:59
Intake Total 800 / 800
Output Total 2300 / 2300 2250 / 2250
Balance -1500 / -1500 -2250 / -2250
Review of Systems
-
History Source: Patient
Constitutional: Reports Fatigue; Denies Chills or Weakness
Respiratory: Reports Cough and Trouble Breathing
Cardiac: Reports No Symptoms
Abdomen/GI: Reports No Symptoms
Genitourinary: Reports No Symptoms and Bleeding (Wells)
Musculoskeletal: Reports No Symptoms
Skin: Reports No Symptoms
Neuro: Reports No Symptoms
Physical Exam
-
General: No Apparent Distress
HEENT: Moist Mucous Membranes and [place] Conjunctivae; Negative Thrush or Anicteric
Respiratory: Wheezes and Crackles; Negative Rales or Rhonchi
Cardiac: Regular Rhythm and S1/S2; Negative Murmur, Rub or Gallop
GI: Soft, Nontender, Nondistended, Normal Bowel Sounds and Other (Peg tube in place.)
Musculoskeletal: No Clubbing, No Cyanosis and No Edema
Skin: Warm
Neuro: AO x 3 and No Motor Deficits
Psych: Calm
Data Reviewed
-
Labs: Labs Reviewed by me and Discussed with Physician
[2025-02-11] MEDS: ROXICODONE 20 MG TUBE ×3 (15:02→20:30)
--- NOTE | 2025-02-11 15:28 | CM ---
Patient with Hx Tongue cancer/SCC status post radiation/chemo, status post trach and PEG with tube feeds at home with Dx Ventilator associated pneumonia, Massive hemoptysis, Acute TME/Hospital delirium. Pulled out trach overnight and replaced.
Room air. Receiving Roxicodone. PT 02/11 recommends skilled vs acute.
CM observed PT/OT with present as previously scheduled. The patient was observed getting OOB to chair with assist of therapists and walked a few steps and back to chair. Noting HR 126 briefly during mobility and some SOB. states she
asked patient again and they both want rehab and no hospice. She would like short term SNF for rehab at [facility]. is aware that [facility] already declined him.
Spoke with Resident [employer]; they are going ahead with Ethics Consult tomorrow. As patient has new dark urine today and they are watching his Hgb today, CM should hold off on making SNF referral today, and if stable they are asking for CM to
make SNF referral tomorrow.
Spoke with Maryann from Facility Environmental Technician Office who relayed that Ethics Consult is on hold until tomorrow - Facility Environmental Technician Emilia will arrange for Th02/12.
Case discussed with Urszula Figueroa CM Director and Elizabeth Maxwell CM Cold Header Operator.
Plan re-referral to [facility] tomorrow if MD indicates medically stable.
Plan Ethics Committee Meeting tomorrow.
--- NOTE | 2025-02-11 16:58 | PTCARENOTE ---
Patient out of bed to chair with PTT/OT. Assistance x2 with walker. Pain medication dose increased today by MD. Patient's in room at bedside.
[2025-02-11 17:03] LABS: Urine Albumin 3+ (Neg - Trace); Urine Bilirubin Negative (Negative); Urine Character Cloudy (Clear); Urine Color Brown; Urine Glucose Negative (Negative); Urine Ketone 1+ (Negative); Urine Leukocyte 2+ (Negative); Urine Nitrite Positive (Negative); Urine Occult Blood 4+ (Negative); Urine Urobilinogen 1+ (Neg - 1+)
[2025-02-11 17:13] LABS: Urine Bacteria Moderate (Negative); Urine Red Blood Cell >100 /HPF (0-2); Urine Squamous Cell 0-2 /LPF (Few); Urine White Cell 30-40 /HPF (0-5)
[2025-02-11 17:17] LABS: Hematocrit 30.9 % (39.0-52.0); Hemoglobin 10.3 g/dL (13.0-18.0); Mean Corp Hgb Conc. 33.3 g/dL (33.0-37.0); Mean Corpuscular Hgb 30.7 pg (27.0-31.0); Mean Platelet Volume 9.1 fL (7.4-10.4); Platelet Count 500 10^3/uL (130-400); Red Blood Cell Count 3.36 10^6/uL (4.70-6.10); Red Cell Dist. Width 14.5 % (11.5-14.5)
[2025-02-11] MEDS: ZYPREXA 10 MG TUBE (20:31)
[2025-02-12] VITALS (16 sets, daily range): BP systolic 119–170; BP diastolic 76–91; PULSE 102–113; O2SAT 93–98
[2025-02-12] MEDS: ROXICODONE 20 MG TUBE ×7 (00:58→23:45)
[2025-02-12 06:04] LABS: Hemoglobin 9.7 g/dL (13.0-18.0); Mean Corpuscular Volume 91.8 fL (80.0-94.0); White Blood Cell Count 10.7 10^3/uL (4.8-10.8)
[2025-02-12 06:05] LABS: Blood Urea Nitrogen 22 mg/dl (9-20); Calcium 8.5 mg/dl (8.4-10.2); Carbon Dioxide 32 mmol/L (22-30); Chloride 97 mmol/L (98-107); Estimated Creatinine Clearance 91 ml/min; Glucose 143 mg/dl (70-99); Potassium 3.5 mmol/L (3.5-5.1); Sodium 133 mmol/L (135-145); eGFR > 60.00
--- NOTE | 2025-02-12 06:34 | PTCARENOTE ---
Pt refusing suction, Q2T's, oral care & meds overnight. Pt called during med pass and convinced pt to take meds. Scheduled meds given and PRN trazadone. meds were effective, pt slept overnight. Tube feeds running at goal. NSR ST. Remains
RA. Thick white moderate secretions. NPO. Wells in place, brown. no other issues at this time. Will monitor.
[2025-02-12 06:38] LABS: Mean Corp Hgb Conc. 33.4 g/dL (33.0-37.0); Mean Corpuscular Hgb 30.7 pg (27.0-31.0); Mean Platelet Volume 9.2 fL (7.4-10.4); Platelet Count 455 10^3/uL (130-400); Red Blood Cell Count 3.16 10^6/uL (4.70-6.10); Red Cell Dist. Width 14.5 % (11.5-14.5)
[2025-02-12] MEDS: LIDOCAINE 4% PATCH 1 PATCH TOPICAL (07:36)
[2025-02-12] MEDS: MIRALAX 17 GRAMS TUBE (07:36)
[2025-02-12] MEDS: ROBITUSSIN 400 MG TUBE ×4 (07:36→20:47)
[2025-02-12] MEDS: FLAGYL 500 MG TUBE ×2 (07:37→19:29)
[2025-02-12] MEDS: DELTASONE 20 MG TUBE (07:37)
[2025-02-12] MEDS: KEFLEX 250 MG/5 ML 500 MG TUBE ×4 (07:38→20:47)
[2025-02-12] MEDS: ATIVAN 0.5 MG TUBE (07:39)
[2025-02-12] MEDS: CIPRO 500 MG TUBE ×2 (10:25→20:46)
--- NOTE | 2025-02-12 11:34 | W.PN.HOSP.TC ---
Addendum entered and electronically signed by Jamar Schmidt MD 02/12/25 13:06:
Ventilator associated pneumonia with respiratory cultures growing MSSA Pseudomonas present cefepime and Flagyl eventually transition to Keflex Cipro metronidazole Flagyl PEG tube last planned dose on 02/14/2025.
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 Unfortunately, deemed not a candidate for additional systemic therapy with chemotherapy at this time per oncology is considered a end-stage condition
Hypokalemia resolved
Original Note:
Today's Communication/Plan
-
Zyprexa 10 mg
Urology evaluation for hematuria and Wells catheter
Plan for discharge with SNF placement.
Assessment / Plan
Assessment / Plan
Assessment-
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
hypoglossal nerve tumor bed.
Plan-
Ventilator associated pneumonia-
S/p AVR DF for massive hemoptysis, fevers with purulent green sputum
Respiratory cultures consistent with MSSA and Pseudomonas aeruginosa (obtained from tracheostomy tube)-was started on vancomycin, cefepime and Flagyl.
ID on board, ID addressing antibiotics. Appreciate ID input.
Currently patient on Keflex, ciprofloxacin and metronidazole via PEG tube course from 02/05 through 02/14 and then stop.
Currently patient not hypoxemic respiratory status at baseline, fevers improving.
No leukocytosis, no fever since 02/07/2025.
Trend CBC and monitor temperature curve
ID planning on at least 7 days of antibiotics.
Given underlying baseline COPD (although no official diagnosis), but noted emphysema on CT-SpO2 goal to be 88-94%
Currently patient saturations greater than 90% on trach collar.
Massive hemoptysis-resolved
Acute blood loss anemia-
Secondary to massive hemoptysis from the tumor site s/p 1 unit PRBC
SCC of the tongue base
Requiring intubation for airway protection. Received 1 unit of PRBC for bleeding s/p TXA.
TXA discontinued on 02/03.
Oncology consulted, no longer a candidate for chemotherapy per oncology.
Poor prognosis at this point of time, ongoing goals of care discussion with .
Radiation oncology recommended palliative radiation therapy to temporize bleeding in case patient rebleeds.
Trend CBC and monitor for recurrent bleeding.
Acute toxic metabolic encephalopathy-
Suspect hospital-acquired delirium in conference with cefepime.
Multifactorial-confluence of critical disease, infection, antibiotic.
Delirium present even before starting patient on cefepime.
Added standing Zyprexa, changed the dose to 10 mg, agitation improved. 1-1.
Restraints as needed, but recommend refraining from using restraints.
Restraints may worsen patient's agitation.
Hypokalemia-
Resolved.
Trend potassium and replete as needed.
Hematuria -
Suspect secondary to radiation cystitis versus traumatic Wells insertion.
Will reassess to remove the Wells catheter.
CBC and urine analysis, culture. Urology consulted, urology on board.
Hyponatremia-
Serum sodium of 134.
Likely hypovolemic hyponatremia.
Continue trending serum sodium.
Emphysema on CT scan, pulmonary nodule of 6 mm
Copious amounts of tracheostomy secretions-
Likely a confluence of infection and decreased clearance from the tumor burden.
Currently patient on DuoNebs, suctioning, Cofflator since 02/07, and Mucinex at 400 4 times daily.
Appreciate pulmonology input. Pulmonology also recommends hospice.
Continue PT OT. Continue aspiration precautions.
GI prophylaxis-on lansoprazole
Tracheostomy tube-
PEG tube-
Secondary to obstructive SCC at the base of the tongue
Previously on trocar 8, changes his cannula twice a day at home.
Currently on Shiley 6. ENT plans back for trocar right at the time of discharge.
Failed Passy-Glennie valve trials before. Planning for Passy-Marilee valve.
Continue with tube feedings as tolerated, n.p.o. except for ice chips.
Chronic pain syndrome-
Due to malignancy, opioid dependence
Continue home medication regimen
Continue 135 morphine milliequivalents per day
Added Dilaudid for moderate and severe pain.
Cachexia-
Severe protein calorie malnutrition based on muscle mass and temporal wasting.
Decreased consumption of oral intake-greater than 20%
BMI at 18.0, currently on Jevity 1.53 times a day.
DVT prophylaxis-SCDs
CODE STATUS-limited DNR (no chest compressions)
Goals of care discussion-
Yesterday around 2:30 PM, Dr. Schmidt my supervising provider and our hospital medicine team along with case monitor representing a family meeting in conversation surrounding hospice, and helping the family, with the decision of hospice. Given
patient's projected prognosis is 3 to 6 months, his oncology deemed him no more a candidate for chemotherapy, and his tracheal secretions, infection not being [id number] unfortunately had recurrent risk of infections from his trach collar
with poor prognosis. Family wants to proceed with giving physical therapy at [facility] and see if he is able to gain his strength back before making the decision of hospice. Family would be able to come to a decision on per . Relayed
information to medical ethics as well. Today medical ethics follow-up consult on hold in the prospects that family may come with the decision by tomorrow. Will follow-up with hospice and medical ethics discussions tomorrow.
Patient clearly stated his wishes that he is not comfortable and wants only comfort care. He does not want to pursue treatments any further. Oncology assessed the patient and did remind him not a candidate for chemotherapy anymore given the acuity
of his conditions and infections. Intensive care, primary hospital medicine team, oncology, -discussed prognosis with the patient family multiple times over the last week with no result of decision making from his . wants to pursue all
treatments at any cost. Medical ethics consult placed to resolve the conflict in decision making. Will continue to encourage patient's spouse and patient to make informed decisions on hospice/comfort care.
Ethics consult placed, through discussion ethics found out that family is also likely on page with hospice. Ethics recommended family to write down patient's hospice wishes and goals. This will be processed during the 2:30 PM meeting today. Will
add an addendum following the 2:30 PM meeting.
Patient wants to go to rehab, Emilia from ethics will be talking to the family once today. Will initiate SNF placement planning with case management.
Poor prognosis as determined by all specialists.
Anticipated Discharge: 24 - 48 hours
Subjective/Interval History
-
Date of Service: February 12, 2025
No episodes of agitation after the change of Zyprexa. Patient reports no complaints today.
Objective Data
-
Labs:
Laboratory Results
02/12/25
05:25
WBC 10.7
Hgb 9.7 L
Hct 29.0 L
Plt Count 455 H
Sodium 133 L
Potassium 3.5
Chloride 97 L
Carbon Dioxide 32 H
BUN 22 H
Creatinine 0.4 L
Glucose 143 H
Calcium 8.5
Vital Signs:
Vital Signs
Temp Pulse Resp BP Pulse Ox
98.1 F 81 16 126/77 95
02/12/25 11:33 02/12/25 10:00 02/12/25 10:00 02/12/25 10:00 02/12/25 10:53
I&O
02/11/25 02/12/25 02/13/25
06:59 06:59 06:59
Intake Total 950 / 950
Output Total 2250 / 2250 950 / 950
Balance -2250 / -2250 0 / 0
Review of Systems
-
History Source: Patient
Constitutional: Reports No Appetite, Fatigue and Weakness; Denies Fever
Respiratory: Reports Trouble Breathing and Wheezing
Cardiac: Reports No Symptoms
Abdomen/GI: Reports No Symptoms
Genitourinary: Reports Bleeding and Other (Wells); Denies Dysuria, Frequency or Flank Pain
Skin: Reports No Symptoms
Neuro: Reports Weakness
Hematologic / Lymphatic: Reports No Symptoms
Physical Exam
-
General: Comfortable and Appears in Distress (Mild respiratory)
HEENT: Moist Mucous Membranes and Tracheotomy (Continues to have secretions. Requiring suctioning.)
Respiratory: Wheezes (Across all lung lobes) and Crackles (Across all lung lobes); Negative Rales or Rhonchi
Cardiac: Regular Rhythm and S1/S2; Negative Murmur, Rub or Gallop
GI: Soft, Nontender, Nondistended, Normal Bowel Sounds and Peg Tube
Musculoskeletal: No Clubbing, No Cyanosis, Edema, Right Lower Extrem and Edema, Left Lower Extrem
Skin: Warm
Neuro: AO x 3 and No Motor Deficits
Psych: Calm
--- NOTE | 2025-02-12 12:15 | W.PN.ONC2 ---
Today's Communication / Plan
-
.
Impression
Impression
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
ABLA from tumor s/p 1 UPRBC /, Hgb remain stable, last amicar 02/02
Fever, not neutropenic -resolved
PEG
Trach
chronic pain, on chronic opioids
malnutrition
Plan
Plan
GOC discussed with pt and at bedside again today by Dr. Galvan, currently goals remain restorative, she would like to take 1 day at a time
could consider RT BID x 2 days to help control bleeding after discharge once he returns home
At this point, patient and understand that PS precludes systemic palliative therapy and hospice is appropriate
monitor for bleeding
Subjective/Objective
Subjective
no new complaints
denies bleeding
reports 7hours in chair yesterday
Vital Signs:
Vital Signs
Temp Pulse Resp BP Pulse Ox
98.1 F 81 16 126/77 95
02/12/25 11:33 02/12/25 10:00 02/12/25 10:00 02/12/25 10:00 02/12/25 10:53
Lab Results:
Laboratory Data
WBC 10.7 10^3/uL (4.8-10.8) 02/12/25 05:25
Hgb 9.7 g/dL (13.0-18.0) L 02/12/25 05:25
Plt Count 455 10^3/uL (130-400) H 02/12/25 05:25
PT 15.3 Sec (11.4-14.6) H 01/29/25 16:44
INR 1.16 01/29/25 16:44
APTT 25.4 Sec (23.4-35.0) 01/29/25 16:44
eGFR > 60.00 02/12/25 05:25
Physical Exam
General: Appears Chronically Ill and Other (trach)
HEENT: Moist Mucous Membranes; Negative Jaundice
Cardiology: Normal Sinus Rhythm
Pulmonary: Clear
GI: Soft and Other (PEG)
Extremities: Pulses Present; Negative Edema
Skin: Warm
[2025-02-12] MEDS: PREVACID 30 MG TUBE (12:17)
--- NOTE | 2025-02-12 13:32 | CM ---
Antibiotics now via tube. Looks much better. Alert, head elevated, writing notes to , responding to questions. Discharge POC was to return to [facility], however, [facility] not accept as of 02/06/25 because 'care needs exceed current
capacity.' Patient noted to be improving in PT.
02/11/25 recommendation for SNF vs Acute and 02/12/25 for SNF. Will await another PT recommendation on 02/13/25 and forward updated referral to [facility] requesting reconsideration. Discharge POC: SNF.
--- NOTE | 2025-02-12 13:52 | HOSPNOTE ---
Spoke with spouse Alena and at this time they are hoping patient will work with PT and then be accepted at [facility] and then come home. Spouse Alena stated that this is patient's choice and she is hoping he can come home. She stated he is
sitting up in a chair writing and appears much better. We will continue to follow.
--- NOTE | 2025-02-12 15:05 | CHAP ---
Ethics consult on hold with patient improvement, willingness to work with PT and possible rehab. Will continue to follow and will continue to provide emotional and spiritual support to Nba and his family through his hospital stay.
--- NOTE | 2025-02-12 17:04 | CONS.URO ---
Consultation
-
Date/Time Consultation Performed: 02/12/25 1600
Requesting Provider: Hospitalist
Performing Provider: Alice
Reason for Consultation: hematuria, urinary retention
Medical History
History of Present Illness
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
Prior urologic h/o BPH s/p TURP in last ~5 yrs followed by diagnosis of prostate cancer s/p XRT ([facility]winder).
He follows regularly w/ his urologist (Dr. Sanchez).
PSA levels have been undetectable since XRT.
Required SC this admission w/ subsequent placement of Wells catheter.
Brown-tinged UOP noted in last 24 hrs w/ intermittent clearing.
No cristiane blood in urine, no clots, or obstruction of catheter.
Patient denies h/o urinary retention or significant LUTS at baseline.
Denies h/o hematuria.
Past Medical History
Past Medical History: CAD and Cancer (SCCa of tongue)
Past Surgical History: None
Social History
Tobacco: Non-smoker
Alcohol: None
Drug: None
Personal:
Living: With Family
Family History
Family History: Reviewed & Not Pertinent
Allergies/Home Medications
Allergies
Allergy/AdvReac Type Severity Reaction Status Date / Time
bee venom protein (honey bee) Allergy Severe Anaphylaxis Verified 01/29/25 09:54
Penicillins Allergy Rash Verified 02/09/25 10:43
Home Medications
�Medication �Instructions �Recorded �Confirmed �Type
cyanocobalamin (vitamin B-12) 1,000 mcg feeding tube DAILY 05/26/24 01/29/25 History
1,000 mcg tablet Supplement
glycopyrrolate 1 mg/5 mL (0.2 1 mg feeding tube Q6HPRN PRN 07/25/24 01/29/25 History
mg/mL) oral solution secretions
scopolamine base 1 mg over 3 days 1 patch transdermal Q3D SECRETIONS 08/15/24 01/29/25 History
transdermal patch
acetaminophen 650 mg/20.3 mL oral 650 mg (20.3 mL) feeding tube 10/11/24 01/29/25 Rx
solution Q4HPRN PRN mild pain/ fever >
100.5 #500 mL
guaifenesin 100 mg/5 mL oral liquid 200 mg (10 mL) feeding tube Q6HPRN 10/11/24 01/29/25 Rx
PRN cough/congestion #120 mL
lansoprazole 30 mg delayed 30 mg feeding tube DAILY #30 tabs 10/11/24 01/29/25 Rx
release,disintegrating tablet
(Prevacid SoluTab)
lidocaine 4 % topical patch 1 patch topical DAILY left back 10/11/24 01/29/25 Rx
pain #30 ea
lorazepam 2 mg/mL oral concentrate 1 mg (0.5 mL) feeding tube TID PRN 10/11/24 01/29/25 Rx
agitation #30 mL
prednisone 10 mg tablet 60 mg PO DIRECTED Cancer 01/27/25 01/29/25 History
lorazepam 2 mg/mL oral concentrate 1 mg feeding tube DAILY Mental 01/29/25 01/29/25 History
Health/Anxiety
oxycodone 10 mg tablet 15 mg feeding tube Q4H Pain 01/29/25 01/29/25 History
polyethylene glycol 3350 17 gram 17 g feeding tube DAILYPRN PRN 01/29/25 01/29/25 History
oral powder packet constipation
trazodone 50 mg tablet 50 mg feeding tube HSPRN PRN sleep 01/29/25 01/29/25 History
Review of Systems
-
History Source: Patient
A 12 point Review of Systems was completed except as noted: Yes
Physical Exam
Vital Signs
Vital Signs
Temp Pulse Resp BP Pulse Ox
98.1 F 98 15 123/91 94
02/12/25 15:54 02/12/25 14:00 02/12/25 14:00 02/12/25 14:00 02/12/25 14:00
Lab / Testing Results
Laboratory Results
02/12/25 05:25
02/12/25 05:25
Physical Exam
General: Well Developed
HEENT: Normocephalic, Anicteric and Tracheotomy
Respiratory: Non Labored Respirations
Cardiac: Regular Rhythm
Breast: N/A
GI: Soft, Non Tender and Non Distended
Rectal: Deferred by Provider
Genito-urinary: Wells Catheter
Musculoskeletal: No Edema
Neuro: AO x 3, No Motor Deficits and Nonfocal/Grossly Intact
Psych: Calm and Intact Judgement
Assessment / Plan
-
Urinary retention
Hematuria - improving
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
H/o prostate cancer s/p XRT
H/o BPH s/p TURP
UOP marlen in tubing and brownish in drainage bag (indicative of old lysing blood products).
No evidence of active bleeding.
Catheter draining well w/o obstruction or clots.
- Recommend AM voiding trial when ambulatory/closer to baseline functional status before discharge (per Hospital Medicine)
- Continue outpatient F/U w/ established urologist (Dr. Sanchez, [facility])
D/w patient, daughter, and spouse.
D/w RN.
D/w Hospitalist.
Urology will sign off, please call w/ questions.
Data Reviewed
-
Total Time Spent with Patient (in minutes): 25
Lab Data: Labs Reviewed, Discussed with Physician, Discussed with Patient and Discussed with Family
Old Records: Reviewed
[2025-02-12] MEDS: ZYPREXA 10 MG TUBE (20:46)
[2025-02-12] MEDS: DESYREL 50 MG TUBE (20:48)
[2025-02-13] VITALS (14 sets, daily range): BP systolic 105–150; BP diastolic 70–119; PULSE 91; O2SAT 95
[2025-02-13] MEDS: ROXICODONE 20 MG TUBE ×6 (05:18→23:29)
--- NOTE | 2025-02-13 05:45 | PTCARENOTE ---
Continues to have copious amounts of secretions. Tube feeds running at goal. Refused q2t. Agreeable to take meds. NPO. VSS. NSR/ST. Refuses trach collar, remains on RA 95%. Borja still draining brown urine.
Secretions through his trach this AM were pink in color.
NO other issues. will monitor.
[2025-02-13] MEDS: ATIVAN 0.5 MG TUBE (09:01)
[2025-02-13] MEDS: CIPRO 500 MG TUBE ×2 (09:01→19:23)
[2025-02-13] MEDS: PREVACID 30 MG TUBE (09:02)
[2025-02-13] MEDS: FLAGYL 500 MG TUBE ×2 (09:02→19:23)
[2025-02-13] MEDS: MIRALAX 17 GRAMS TUBE (09:02)
[2025-02-13] MEDS: DELTASONE 20 MG TUBE (09:02)
[2025-02-13] MEDS: LIDOCAINE 4% PATCH 1 PATCH TOPICAL (09:03)
[2025-02-13] MEDS: ROBITUSSIN 400 MG TUBE ×4 (09:04→21:22)
[2025-02-13] MEDS: KEFLEX 250 MG/5 ML 500 MG TUBE ×4 (09:04→21:22)
--- NOTE | 2025-02-13 13:12 | W.PN.HOSP.TC ---
Addendum entered and electronically signed by Jamar Schmidt MD 02/13/25 15:52:
NAD
Scleral Anicteric, wearing corrective lenses
DMM
No JVD
Trach with thick gunky secretion
Rhonchorous throughout all lung frederick
RRR, S1/S2
Soft, NT, ND, BS+
Warm, Dry
AAOx3
Calm
Ventilator associated pneumonia with respiratory cultures growing MSSA Pseudomonas present cefepime and Flagyl eventually transition to Keflex Cipro metronidazole Flagyl PEG tube last planned dose on 02/14/2025.
Continue trach care and frequent suctioning
Multiple attempts to pass/place passy-jason valve
Reach out to ENT for potential trach collar/custom. Unfortunately do not have supplies in the hospital at this time. They will attempt on Sunday to place
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 Unfortunately, deemed not a candidate for additional systemic therapy with chemotherapy at this time per oncology is considered a end-stage condition
Massive hemoptysis resolved
S/p 1 unit PRBC and TXA
Hypokalemia resolved
Hematuria
Evaluated by urology likely believed to be radiation cystitis versus catheter trauma
A.m. voiding trial when ambulatory/closer to baseline functional status before discharge
Cachexia with severe protein calorie malnutrition
Continue Jevity 1.5
Chronic pain syndrome
Continue morphine and Dilaudid
PT/OT SNF
Original Note:
Today's Communication/Plan
-
Continue antibiotics per ID.
Evaluation for trach replacement-by pulmonology and ENT.
Case management working on dispo planning.
Assessment / Plan
Assessment / Plan
Assessment-
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
hypoglossal nerve tumor bed.
Plan-
Ventilator associated pneumonia-
S/p AVR DF for massive hemoptysis, fevers with purulent green sputum
Respiratory cultures consistent with MSSA and Pseudomonas aeruginosa (obtained from tracheostomy tube)-was started on vancomycin, cefepime and Flagyl.
ID on board, ID addressing antibiotics. Appreciate ID input.
Currently patient on Keflex, ciprofloxacin and metronidazole via PEG tube course from 02/05 through 02/14 and then stop.
Currently patient not hypoxemic respiratory status at baseline, fevers improving.
No leukocytosis, no fever since 02/07/2025.
Trend CBC and monitor temperature curve
ID planning on at least 7 days of antibiotics.
Given underlying baseline COPD (although no official diagnosis), but noted emphysema on CT-SpO2 goal to be 88-94%
Currently patient saturations greater than 90% on trach collar.
Massive hemoptysis-resolved
Acute blood loss anemia-
Secondary to massive hemoptysis from the tumor site s/p 1 unit PRBC
SCC of the tongue base
Requiring intubation for airway protection. Received 1 unit of PRBC for bleeding s/p TXA.
TXA discontinued on 02/03.
Oncology consulted, no longer a candidate for chemotherapy per oncology.
Poor prognosis at this point of time, ongoing goals of care discussion with .
Radiation oncology recommended palliative radiation therapy to temporize bleeding in case patient rebleeds.
Trend CBC and monitor for recurrent bleeding.
Acute toxic metabolic encephalopathy-
Suspect hospital-acquired delirium in conference with cefepime.
Multifactorial-confluence of critical disease, infection, antibiotic.
Delirium present even before starting patient on cefepime.
Added standing Zyprexa, changed the dose to 10 mg, agitation improved. 1-1.
Restraints as needed, but recommend refraining from using restraints.
Restraints may worsen patient's agitation.
Hypokalemia-
Resolved.
Trend potassium and replete as needed.
Hematuria -
Suspect secondary to radiation cystitis versus traumatic Wells insertion.
Will reassess to remove the Wells catheter.
CBC and urine analysis, culture. Urology consulted, urology on board.
Hyponatremia-
Serum sodium of 134.
Likely hypovolemic hyponatremia.
Continue trending serum sodium.
Emphysema on CT scan, pulmonary nodule of 6 mm
Copious amounts of tracheostomy secretions-
Likely a confluence of infection and decreased clearance from the tumor burden.
Currently patient on DuoNebs, suctioning, Cofflator since 02/07, and Mucinex at 400 4 times daily.
Appreciate pulmonology input. Pulmonology also recommends hospice.
Continue PT OT. Continue aspiration precautions.
GI prophylaxis-on lansoprazole
Tracheostomy tube-
PEG tube-
Secondary to obstructive SCC at the base of the tongue
Previously on trocar 8, changes his cannula twice a day at home.
Currently on Shiley 6. ENT plans back for trocar right at the time of discharge.
Failed Passy-Jason valve trials before. Planning for Passy-Parrish valve.
Continue with tube feedings as tolerated, n.p.o. except for ice chips.
Chronic pain syndrome-
Due to malignancy, opioid dependence
Continue home medication regimen
Continue 135 morphine milliequivalents per day
Added Dilaudid for moderate and severe pain.
Cachexia-
Severe protein calorie malnutrition based on muscle mass and temporal wasting.
Decreased consumption of oral intake-greater than 20%
BMI at 18.0, currently on Jevity 1.53 times a day.
DVT prophylaxis-SCDs
CODE STATUS-limited DNR (no chest compressions)
Goals of care discussion-
02/12/25-ethics meeting concluded, family made a decision to pursue rehab and further treatment. Family wants Passy-Jason valve back, last day of antibiotic course on Sunday. Updated ENT and pulmonology to reevaluate the patient. Currently case
management is working on finding a skilled rehab facility for the patient.
Sunday 02/11 around 2:30 PM, Dr. Schmidt my supervising provider and our hospital medicine team along with director case management representing a family meeting in conversation surrounding hospice, and helping the family, with the decision of hospice. Given
patient's projected prognosis is 3 to 6 months, his oncology deemed him no more a candidate for chemotherapy, and his tracheal secretions, infection not being [id number] unfortunately had recurrent risk of infections from his trach collar
with poor prognosis. Family wants to proceed with giving physical therapy at [facility] and see if he is able to gain his strength back before making the decision of hospice. Family would be able to come to a decision on per . Relayed
information to medical ethics as well. Today medical ethics follow-up consult on hold in the prospects that family may come with the decision by tomorrow. Will follow-up with hospice and medical ethics discussions tomorrow.
02/10/21 - Patient clearly stated his wishes that he is not comfortable and wants only comfort care. He does not want to pursue treatments any further. Oncology assessed the patient and did remind him not a candidate for chemotherapy anymore given
the acuity of his conditions and infections. Intensive care, primary hospital medicine team, oncology, -discussed prognosis with the patient family multiple times over the last week with no result of decision making from his . wants to
pursue all treatments at any cost. Medical ethics consult placed to resolve the conflict in decision making. Will continue to encourage patient's spouse and patient to make informed decisions on hospice/comfort care.
02/10/21 - Ethics consult placed, through discussion ethics found out that family is also likely on page with hospice. Ethics recommended family to write down patient's hospice wishes and goals. This will be processed during the 2:30 PM meeting
today. Will add an addendum following the 2:30 PM meeting.
Patient wants to go to rehab, Emilia from ethics will be talking to the family once today. Will initiate SNF placement planning with case management.
Poor prognosis as determined by all specialists.
Anticipated Discharge: > 48 hours
Subjective/Interval History
-
Date of Service: February 13, 2025
Patient is doing better, is writing and asked for Passy-Parrish valve. He has been working with physical therapy and walked hallway.
Objective Data
-
Labs:
Not performed today, no need to repeat Dennis
Vital Signs:
Vital Signs
Temp Pulse Resp BP Pulse Ox
99.1 F 98 21 150/79 94
02/13/25 11:11 02/13/25 06:00 02/13/25 06:00 02/13/25 06:00 02/13/25 06:00
I&O
02/12/25 02/13/25 02/14/25
06:59 06:59 06:59
Intake Total 950 / 950 950 / 950
Output Total 950 / 950 1200 / 1200
Balance 0 / 0 -250 / -250
Review of Systems
-
History Source: Patient
Constitutional: Reports Fatigue
Respiratory: Reports Cough, Trouble Breathing and Wheezing
Cardiac: Reports No Symptoms
Abdomen/GI: Reports No Symptoms
Genitourinary: Reports No Symptoms
Musculoskeletal: Reports No Symptoms
Skin: Reports No Symptoms
Neuro: Reports No Symptoms
Allergy / Immunology: Reports No Symptoms
Physical Exam
-
General: No Apparent Distress and Comfortable
HEENT: Moist Mucous Membranes
Respiratory: Wheezes (Gross lung lobe) and Crackles (All gross all lung lobes)
Cardiac: Regular Rhythm and S1/S2; Negative Murmur, Rub or Gallop
GI: Soft, Nontender, Nondistended and Normal Bowel Sounds
Musculoskeletal: No Clubbing, No Cyanosis, Edema, Right Lower Extrem and Edema, Left Lower Extrem
Neuro: AO x 3 and No Motor Deficits
Psych: Calm
--- NOTE | 2025-02-13 15:46 | W.PN.UPDATE ---
Update Note
Progress Note Update
Pt requesting change of trach to allow passy marilee speaking valve
Hx Sq cell CA oropharynx, c bleeding
Was using cuffless trach at home for easier speech
Still on IV antibx
Chronic trach, sq cell CA
Feel pt should keep a cuffed trach to protect airway given his history of tumor bleeding
Can use either a #6 Cuffed or #8 Cuffed trach,
With cuff deflated, still could use Passy Marilee valve
#6 easier to speak with, #8 easier to breathe thru
Since he had #8 previously, reasonable to change to cuffed #8, though #6 cuffed trach may be easier to place
These can be ordered from central supply or OR.
Will consider changing trach on Sunday.
--- NOTE | 2025-02-13 17:51 | PTCARENOTE ---
see nursing flowsheet. one to one iobservation maintained for safety. tolerating tube feeds. oob to chair for several hours and tolerated well. suctioned via trach x 2 for mod amount parnell sputum. inner cannula changed. pts salazar removed this am. pt
unable to void after 6 hrs. bladder scan 406. satraight cathed at 1730 drained only 150 mls marlen urine with small amount of blood. sats in mid to high 90s on room air. sinus rythym on monitor. family at bedside.
--- NOTE | 2025-02-13 17:51 | CM ---
Addendum entered by Azeb Sanford RN 02/13/25 18:04:
Noting Ethics Consult on hold.
Original Note:
Patient with Hx Tongue cancer/SCC status post radiation/chemo, status post trach and PEG with tube feeds at home with Dx Ventilator associated pneumonia, Massive hemoptysis, Acute TME/Hospital delirium. Pulled out trach overnight and replaced.
Room air. Receiving Roxicodone. PT 02/11 recommends skilled vs acute. Room air. Trach collar with suctioning. Jevity tube feeds. PT/OT 02/13 recommend skilled rehab.
Phone call to [facility]; left message with request to review updated referral for rehab.
Plan follow up with [facility] for acceptance.
--- NOTE | 2025-02-13 20:49 | PTCARENOTE ---
Pt received resting in bed at beginning of shift. at bedside. Continue son 1:1 observation. Tech in room. Pt AAOx3. Denies any pain or discomfort. Intermittent secretions orally and via trash. Pt self suctioning. Trach suctioned for moderate
amount thick parnell/white secretions. POX 99%. Coarse/rhonchi throughout. VSS. Afebrile SR on CM currently. Wounds as documented. Tolerating TF. Cipro given as ordered. TF placed on hold till approx 2130. Pt had one small smear. Cleansed and changed.
Agreeable to care provided. Able to mouth requests/write on paper as well. Russell aguila'd at approx 11 this am. Bladder scanned and straight cathed at approx 1730 prior to beginning of shift. At present time pt does not feel the need to void. Explained
to pt if unable to void by 0000 will need to bladder scan and possibly straight cath. Pt agreeable. Rest of assessment as documented. Call fall within reach. Paper and pen within reach. Will continue to monitor.
[2025-02-13] MEDS: DESYREL 50 MG TUBE (21:22)
[2025-02-13] MEDS: ZYPREXA 10 MG TUBE (21:22)
[2025-02-14] VITALS (12 sets, daily range): BP systolic 108–154; BP diastolic 75–111
--- NOTE | 2025-02-14 00:30 | PTCARENOTE ---
No urine output since straight cathed at dinner time. Bladder scanned for 690ml. Straight cathed for 700. Will continue to monitor.
[2025-02-14] MEDS: ROXICODONE 20 MG TUBE ×5 (03:33→19:15)
[2025-02-14 04:48] LABS: Hemoglobin 8.7 g/dL (13.0-18.0); Mean Corp Hgb Conc. 33.5 g/dL (33.0-37.0); Mean Corpuscular Hgb 30.6 pg (27.0-31.0); Mean Corpuscular Volume 91.5 fL (80.0-94.0); Mean Platelet Volume 8.8 fL (7.4-10.4); Platelet Count 410 10^3/uL (130-400); Red Blood Cell Count 2.84 10^6/uL (4.70-6.10); Red Cell Dist. Width 14.6 % (11.5-14.5); White Blood Cell Count 8.1 10^3/uL (4.8-10.8)
[2025-02-14 05:14] LABS: Blood Urea Nitrogen 16 mg/dl (9-20); Calcium 8.3 mg/dl (8.4-10.2); Carbon Dioxide 33 mmol/L (22-30); Chloride 95 mmol/L (98-107); Estimated Creatinine Clearance 91 ml/min; Glucose 127 mg/dl (70-99); Potassium 3.7 mmol/L (3.5-5.1); Sodium 131 mmol/L (135-145); eGFR > 60.00
--- NOTE | 2025-02-14 06:22 | PTCARENOTE ---
No for since straight cathed at 0030. Bladder scanned at this time for 199mls. Will continue to monitor.
[2025-02-14] MEDS: LIDOCAINE 4% PATCH TOPICAL ×2 (07:53→08:15)
[2025-02-14] MEDS: FLAGYL 500 MG TUBE ×2 (07:53→19:14)
[2025-02-14] MEDS: ATIVAN 0.5 MG TUBE (07:53)
[2025-02-14] MEDS: DELTASONE 20 MG TUBE (07:54)
[2025-02-14] MEDS: ROBITUSSIN 400 MG TUBE ×4 (07:54→21:18)
[2025-02-14] MEDS: CIPRO 500 MG TUBE ×2 (07:54→19:15)
[2025-02-14] MEDS: PREVACID 30 MG TUBE (07:54)
[2025-02-14] MEDS: KEFLEX 250 MG/5 ML 500 MG TUBE ×4 (07:55→21:18)
[2025-02-14] MEDS: MIRALAX 17 GRAMS TUBE (07:55)
--- NOTE | 2025-02-14 09:15 | W.PN.HOSP.TC ---
Today's Communication/Plan
-
Assessment / Plan
Assessment / Plan
NAD
Scleral Anicteric, wearing corrective lenses
DMM
No JVD
Trach with thick gunky secretion
Rhonchorous throughout all lung frederick
RRR, S1/S2
Soft, NT, ND, BS+
Warm, Dry
AAOx3
Calm
Ventilator associated pneumonia with respiratory cultures growing MSSA Pseudomonas present cefepime and Flagyl eventually transition to Keflex Cipro metronidazole Flagyl PEG tube last planned dose on 02/14/2025.
Continue trach care and frequent suctioning
Multiple attempts to pass/place passy-jason valve, ENT has placed recommendations To order a cuff #6 or cuff #8 trach
Reach out to ENT for potential trach collar/custom. Unfortunately do not have supplies in the hospital at this time. They will attempt on Sunday to place
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 Unfortunately, deemed not a candidate for additional systemic therapy with chemotherapy at this time per oncology is considered a end-stage condition
Massive hemoptysis resolved
S/p 1 unit PRBC and TXA
Hypokalemia resolved
Hematuria
Evaluated by urology likely believed to be radiation cystitis versus catheter trauma
A.m. voiding trial when ambulatory/closer to baseline functional status before discharge
Cachexia with severe protein calorie malnutrition
Continue Jevity 1.5
Chronic pain syndrome
Continue morphine and Dilaudid
Anticipated Discharge: > 48 hours
Subjective/Interval History
-
Date of Service: February 14, 2025
Seen and examined. No new complaints. No acute overnight events.
One-to-one at bedside. Had coughing as well however since then has been sleeping well
Objective Data
-
Labs:
Laboratory Results
02/14/25
04:33
WBC 8.1
Hgb 8.7 L
Hct 26.0 L
Plt Count 410 H
Sodium 131 L
Potassium 3.7
Chloride 95 L
Carbon Dioxide 33 H
BUN 16
Creatinine 0.4 L
Glucose 127 H
Calcium 8.3 L
Vital Signs:
Vital Signs
Temp Pulse Resp BP Pulse Ox
100.2 F 115 27 149/96 96
02/14/25 07:13 02/14/25 06:00 02/14/25 06:00 02/14/25 06:00 02/14/25 06:00
I&O
02/13/25 02/14/25 02/15/25
06:59 06:59 06:59
Intake Total 950 / 950
Output Total 1200 / 1200 850 / 850
Balance -250 / -250 -850 / -850
--- NOTE | 2025-02-14 11:19 | W.PN.URO.CBU ---
Today's Communication / Plan
-
I&O cath or indwelling Wells if he cannot voidi volitionally
- Continue outpatient F/U w/ established urologist (Dr. Sanchez, [facility])
Assessment / Plan
-
Urinary retention
Hematuria - improving
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
H/o prostate cancer s/p XRT
H/o BPH s/p TURP
voiding trial in progress
Diagnosis
-
Date of Service: February 14, 2025
-
Patient Diagnosis:
Urinary retention
Hematuria - improving
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
H/o prostate cancer s/p XRT
H/o BPH s/p TURP
Subjective
-
Wells has been removed -- pt has yet to void volitionally
Objective
-
Vital Signs
Temp Pulse Resp BP Pulse Ox
100.2 F 115 27 149/96 96
02/14/25 07:13 02/14/25 06:00 02/14/25 06:00 02/14/25 06:00 02/14/25 06:00
Intake and Output
02/13/25 02/14/25 02/15/25
06:59 06:59 06:59
Intake Total 950 / 950
Output Total 1200 / 1200 850 / 850
Balance -250 / -250 -850 / -850
Intake:
Tube feeding 550 / 550
Feeding tube flush amount 400 / 400
Output:
Urine, Wells 1200 / 1200
Straight cath output 850 / 850
Other:
How many times incontinent 1
SMALL amount urine
Laboratory Results
02/14/25 04:33
02/14/25 04:33
Physical Exam
-
General - adult male in ICU bed; can't talk directly
abdomen - soft
--- NOTE | 2025-02-14 16:51 | CM ---
Patient with Hx Tongue cancer/SCC status post radiation/chemo, status post trach and PEG with tube feeds at home with Dx Ventilator associated pneumonia, Massive hemoptysis, Acute TME/Hospital delirium. Room air. Trach collar with suctioning.
Seen by ENT for patient request for passy jason speaking valve. Jevity tube feeds. PT/OT 02/13 recommend skilled rehab.
Spoke with Alba, [facility]; provided clinical update and requested re-review of SNF referral. She will look at it tomorrow and let CM know.
Plan follow up with [facility] for acceptance.
--- NOTE | 2025-02-14 20:59 | PTCARENOTE ---
Pt received at beginning of shift resting in bed in good spirits. VSS. Afebrile. SR/ST on CM. Cipro given and TF on hold for 2 hrs will restart approx 2130. Pt self sections orally. Trach suctioned x 1 for small amount thick parnell white secretions. Pt
able to make needs known writing on paper. Rest of assessment as documented. Can refuse turns will attempt to encourage turns throughout night. Pt remains on 1:1 with sitter in room. Denies any pain or discomfort. Will continue to monitor.
[2025-02-14] MEDS: ZYPREXA 10 MG TUBE (21:17)
[2025-02-14] MEDS: DESYREL 50 MG TUBE (21:17)
[2025-02-15] VITALS (12 sets, daily range): BP systolic 116–154; BP diastolic 70–139
[2025-02-15] MEDS: ROXICODONE 20 MG TUBE ×6 (00:23→20:51)
--- NOTE | 2025-02-15 06:55 | W.PN.URO.CBU ---
Today's Communication / Plan
-
continue to permit/encourage patient to void volitionally
I&O cath prn only
Assessment / Plan
-
Urinary retention -- improved
Hematuria - improved
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
H/o prostate cancer s/p XRT
H/o BPH s/p TURP
Diagnosis
-
Date of Service: February 15, 2025
-
Patient Diagnosis:
Urinary retention
Hematuria - improving
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
H/o prostate cancer s/p XRT
H/o BPH s/p TURP
Objective
-
Vital Signs
Temp Pulse Resp BP Pulse Ox
98.3 F 84 22 138/70 94
02/14/25 23:00 02/15/25 06:00 02/15/25 06:00 02/15/25 06:00 02/15/25 06:00
Intake and Output
02/13/25 02/14/25 02/15/25
06:59 06:59 06:59
Intake Total 950 / 950 950 / 950 950 / 950
Output Total 1200 / 1200 850 / 850
Balance -250 / -250 100 / 100 950 / 950
Intake:
Tube feeding 550 / 550 550 / 550 550 / 550
Feeding tube flush amount 400 / 400 400 / 400 400 / 400
Output:
Urine, Wells 1200 / 1200
Straight cath output 850 / 850
Other:
Number of approximated MODERATE 1
amounts of urine
How many times incontinent 1
SMALL amount urine
Laboratory Results
02/14/25 04:33
02/14/25 04:33
I&O cath'ed ~ MN for 199 ml
Physical Exam
-
General - well developed, well nourished, no acute distress
Chest - clear bilaterally
Abdomen - soft, non-tender, positive bowel sounds, no CVAT, no incisional pain or distention
Genitalia - normal
Rectal - normal
Skin - warm & dry with no rash
Neuro - AOx3, no motor deficits
Extremities - no clubbing, no cyanosis, no edema
Incision - clean, dry
Dressing - clean, dry, intact
[2025-02-15] MEDS: ATIVAN 0.5 MG TUBE (08:57)
[2025-02-15] MEDS: ROBITUSSIN 400 MG TUBE ×4 (08:57→21:06)
[2025-02-15] MEDS: MIRALAX 17 GRAMS TUBE (08:57)
[2025-02-15] MEDS: PREVACID 30 MG TUBE (08:58)
[2025-02-15] MEDS: URECHOLINE 25 MG PO ×3 (08:58→21:07)
[2025-02-15] MEDS: DELTASONE 20 MG TUBE (08:58)
[2025-02-15] MEDS: LIDOCAINE 4% PATCH TOPICAL (09:10)
--- NOTE | 2025-02-15 11:03 | W.PN.HOSP.TC ---
Today's Communication/Plan
-
Discharge planning
Assessment / Plan
Assessment / Plan
NAD
Scleral Anicteric, wearing corrective lenses
DMM
No JVD
Trach with thick gunky secretion
Rhonchorous throughout all lung frederick
RRR, S1/S2
Soft, NT, ND, BS+
Warm, Dry
AAOx3
Calm
Ventilator associated pneumonia with respiratory cultures growing MSSA Pseudomonas present cefepime and Flagyl eventually transition to Keflex Cipro metronidazole Flagyl PEG tube last planned dose on 02/14/2025.
Continue trach care and frequent suctioning
Multiple attempts to pass/place passy-jason valve, ENT has placed recommendations To order a cuff #6 or cuff #8 trach
Reach out to ENT for potential trach collar/custom. Unfortunately do not have supplies in the hospital at this time. They will attempt on Sunday to place
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 Unfortunately, deemed not a candidate for additional systemic therapy with chemotherapy at this time per oncology is considered a end-stage condition
Massive hemoptysis resolved
S/p 1 unit PRBC and TXA
Hypokalemia resolved
Hematuria
Evaluated by urology likely believed to be radiation cystitis versus catheter trauma
A.m. voiding trial when ambulatory/closer to baseline functional status before discharge
Cachexia with severe protein calorie malnutrition
Continue Jevity 1.5
Chronic pain syndrome
Continue morphine and Dilaudid
Anticipated Discharge: 24 - 48 hours
Subjective/Interval History
-
Date of Service: February 15, 2025
Seen and examined. No new complaints. No acute overnight events.
Objective Data
-
Vital Signs:
Vital Signs
Temp Pulse Resp BP Pulse Ox
100.4 F H 84 22 138/70 94
02/15/25 08:00 02/15/25 06:00 02/15/25 06:00 02/15/25 06:00 02/15/25 06:00
I&O
02/14/25 02/15/25 02/16/25
06:59 06:59 06:59
Intake Total 950 / 950 950 / 950
Output Total 850 / 850
Balance 100 / 100 950 / 950
--- NOTE | 2025-02-15 12:00 | PTCARENOTE ---
Pt resting comfortably in bed; Large loose BM - assisted with clean up; Noted MASD on scrotum and groin - area cleaned and calazime applied. Trach suctioned, trach care completed and inner cannula changed; PEG site care completed; Bladder
scanned for > 700ml's; Assisted to BSC, but Pt unable to void. Straight cath performed for 900ml's of marlen colored urine. Will continue to monitor and assess.
--- NOTE | 2025-02-15 15:40 | CHAP ---
Nba was awake, propped up in bed, working on ice chips. Alena was at his side, encouraged by his progress. She shared her hope that Nba will be able to go to rehab, and she welcomed prayer. Emotional and spiritual support provided.
[2025-02-15] MEDS: ZYPREXA 10 MG TUBE (21:06)
[2025-02-16] VITALS (14 sets, daily range): BP systolic 128–183; BP diastolic 78–98
[2025-02-16] MEDS: ROXICODONE 20 MG TUBE ×7 (00:21→23:52)
--- NOTE | 2025-02-16 04:00 | PTCARENOTE ---
Assumed care of pt who has a staff member at bedside for 1:1 safety. large amount of secretions from mouth and coughing out of trach. Secretions are parnell, clear and most recent blood tinged. Lungs are coarse throughout with Rhonchi. Pt denies feeling
SOB or uncomfortable with resp status. Room air puls ox has been high 90% range. Assessment completed and documented.
--- NOTE | 2025-02-16 04:13 | PTCARENOTE ---
Day shift RN reported that pt had been st cathed in the am and then @ [address] cath pt without success. Follow up on bladder distention and Scan reveals 599 ml. Pt has been sta cathed at 4 times in the past 24 hours. Discussed with
hospitalist NEMO and Salazar placed and had 500 ml immediate return of clear yellow urine. Pt tolerated well and salazar placed with 1 attempt. Patent to closed collection bag
[2025-02-16] MEDS: ROBINUL 1 MG TUBE ×2 (04:58→20:37)
--- NOTE | 2025-02-16 07:33 | W.PN.HOSP.TC ---
Today's Communication/Plan
-
Pain management-medications changed to long-acting opioids with Roxicodone for breakthrough pain.
Continue monitoring fever curve.
Assessment / Plan
Assessment / Plan
Assessment-
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
hypoglossal nerve tumor bed.
Plan-
Ventilator associated pneumonia-
S/p mechanical ventilation for airway protection after massive hemoptysis, caused fevers with green purulent sputum.
Respiratory cultures consistent with MSSA and Pseudomonas aeruginosa from tracheostomy tube, started on vancomycin cefepime and Flagyl.
Switch to Keflex ciprofloxacin and metronidazole via PEG tube from 02/05 through 02/14-finish the course.
Single episode of fever-100.4 yesterday, less likely secondary to infection.
Obtain CBC with differentials, and CMP in the a.m. tomorrow to reassess for any ongoing active infection.
No leukocytosis since 02/07/2025.
ID signed off, secretions improved.
Currently receiving tracheostomy suctions. Baseline COPD with no official diagnosis but noted emphysema on CT-SpO2 goal is 88 to 94%.
ENT placed recommendations to order cuffed tracheostomy 6 or cuffed tracheostomy 8.
Massive hemoptysis-resolved.
Acute blood loss anemia-
Resolved, secondary to massive hemoptysis from the tumor site, s/p 1 unit RBC
SCC of the tongue base.
Oncology consulted, determined no longer candidate for chemotherapy.
Radiation oncology recommended palliative radiation therapy to temporize bleeding in case patient rebleeds.
Repeat CBC in the a.m. tomorrow.
Acute toxic metabolic encephalopathy-
Multifactorial-likely a confluence of critical disease, infection, antibiotic.
Significantly improved
Some delirium and agitation present even before starting cefepime.
Zyprexa 10 mg, restraints as needed. Recommended refraining from using restraints.
Ativan 0.5 mg as needed.
Hematuria-
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 Hematuria resolved
Wells catheter removed on 02/13-per urology recommendations.
Patient developed acute urinary retention-failed voiding trial, back on Wells on 02/15/2025.
Suspected secondary to neurogenic bladder from radiation-bethanechol added by urology.
Appreciate urology inputs.
Hyponatremia-
Serum sodium at 131
Likely hypovolemic hyponatremia, suspect secondary to Jevity feeds
Continue trending serum sodium if does not improve, obtain SIADH workup.
Emphysema on CT scan, pulmonary nodule of 6 mm
Copious amounts of tracheostomy secretions-
Likely a confluence of infection and decreased clearance from the tumor burden.
Currently patient on DuoNebs, suctioning, Cofflator since 02/07, and Mucinex at 400 4 times daily.
Appreciate pulmonology input. Pulmonology also recommends hospice.
Continue PT OT. Continue aspiration precautions.
GI prophylaxis-on lansoprazole
Chronic pain syndrome-
Due to malignancy, opioid dependence
Continue home medication regimen
Continue 135 morphine milliequivalents per day
Added Dilaudid for moderate and severe pain.
Cachexia-
Severe protein calorie malnutrition based on muscle mass and temporal wasting.
Decreased consumption of oral intake-greater than 20%
BMI at 18.0, currently on Jevity 1.53 times a day.
DVT prophylaxis-SCDs
CODE STATUS-limited DNR (no chest compressions)
Poor prognosis as determined by all specialists.
Anticipated Discharge: > 48 hours
Subjective/Interval History
-
Date of Service: February 16, 2025
Patient is complaining of right-sided neck pain that radiates into his jaw and back of the head that is sensitive to touch. His left-sided neck pain is not as bad as the right sided neck pain.
He has no pain while sleeping but can feel the pain when awake.
Objective Data
-
Vital Signs:
Vital Signs
Temp Pulse Resp BP Pulse Ox
99.2 F 90 18 144/84 95
02/16/25 03:34 02/16/25 06:00 02/16/25 06:00 02/16/25 06:00 02/16/25 06:00
I&O
02/15/25 02/16/25 02/17/25
06:59 06:59 06:59
Intake Total 950 / 950
Output Total 1175 / 1175
Balance 950 / 950 -1175 / -1175
Review of Systems
-
History Source: Patient
Constitutional: Reports No Symptoms
EENT: Reports Other (Neck pain radiating into head)
Respiratory: Reports No Symptoms
Cardiac: Reports No Symptoms
Abdomen/GI: Reports No Symptoms
Genitourinary: Reports No Symptoms
Musculoskeletal: Reports No Symptoms
Skin: Reports No Symptoms
Neuro: Reports No Symptoms
Hematologic / Lymphatic: Reports No Symptoms
Physical Exam
-
General: Comfortable, Cachectic and Other (On room air)
HEENT: Moist Mucous Membranes, Anicteric, Collyer Conjunctivae and Other (Neck tender to touch on the right side.); Negative Thrush
Respiratory: Wheezes (Across all lung lobes), Crackles (Across all lung lobes) and Other (Trach collar-continues to have secretions. No erythema, edema noted.)
Cardiac: Regular Rhythm, S1/S2 and Other (Port on the chest wall-no erythema, edema or discharge at the port site noted.); Negative Murmur, Rub or Gallop
GI: Soft, Nontender, Nondistended, Normal Bowel Sounds and Other (PEG tube-no erythema, edema or discharge noted.)
Genito-urinary: Wells
Skin: Warm
Neuro: AO x 3 and No Motor Deficits
Psych: Calm
Data Reviewed
-
Labs: Labs Reviewed by me and Discussed with Physician
--- NOTE | 2025-02-16 08:00 | PTCARENOTE ---
On am rounds pt is AAO and agitated for some unknown reason. Pt Is NPO may have ice chips. TF running as ordered. Pt has salazar cath due to retention and unable to void.. Pthas harsh cough with copious secretions. #[address] Pt is a
1:1 observation.
[2025-02-16] MEDS: MIRALAX 17 GRAMS TUBE (08:35)
[2025-02-16] MEDS: LIDOCAINE 4% PATCH 1 PATCH TOPICAL (08:35)
[2025-02-16] MEDS: PREVACID 30 MG TUBE (08:35)
[2025-02-16] MEDS: ROBITUSSIN 400 MG TUBE ×4 (08:35→22:37)
[2025-02-16] MEDS: URECHOLINE 25 MG PO ×3 (08:35→22:36)
[2025-02-16] MEDS: DELTASONE 20 MG TUBE (08:36)
[2025-02-16] MEDS: ATIVAN 0.5 MG TUBE (08:36)
--- NOTE | 2025-02-16 10:07 | W.PN.URO.CBU ---
Today's Communication / Plan
-
keep Wells
pt to f/u with his establish urologist -- Dr Carranza
will sign off
Assessment / Plan
-
Urinary retention -- persistent
Hematuria - improved
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
H/o prostate cancer s/p XRT
H/o BPH s/p TURP
Diagnosis
-
Date of Service: February 16, 2025
-
Patient Diagnosis:
Urinary retention
Hematuria - improving
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
H/o prostate cancer s/p XRT
H/o BPH s/p TURP
Subjective
-
again could not void: I&O cathed the Wells placed for ~ 500 ml
Objective
-
Vital Signs
Temp Pulse Resp BP Pulse Ox
99.8 F 105 20 150/80 98
02/16/25 08:34 02/16/25 08:00 02/16/25 08:00 02/16/25 08:00 02/16/25 08:00
Intake and Output
02/15/25 02/16/25 02/17/25
06:59 06:59 06:59
Intake Total 950 / 950
Output Total 1175 / 1175
Balance 950 / 950 -1175 / -1175
Intake:
Tube feeding 550 / 550
Feeding tube flush amount 400 / 400
Output:
Urine, Wells 625 / 625
Urine, Voided 50 / 50
Straight cath output 500 / 500
Other:
Number of approximated MODERATE 1
amounts of urine
How many times incontinent 1
SMALL amount urine
Laboratory Results
02/14/25 04:33
02/14/25 04:33
Physical Exam
-
Wells draining marlen urine
--- NOTE | 2025-02-16 13:49 | W.PN.UPDATE ---
Update Note
Progress Note Update
Seen and examined by me independently in collaboration with the medical assistant secretary.
Lab data and imaging data reviewed.
Addendum as below :
Stabilized from a tongue bleeding.
Patient with new trach-cuffed Shiley 8. Await Passy-[place] valve which will be obtained on Sunday. Will discuss with the ENT whether this is going to be a new trach for him moving forward. He has cuffless trach at home.
His main complaint today is the right neck pain more intense than the left neck pain.
Patient has tenderness over the right masseter area. Looking at the CT of the neck I suspect this may be related to the cancer. He has soft tissue abnormality in the right masseter space as well as right carotid space. Continue to optimize pain
regimen. Switch to OxyContin and add as needed oxycodone. Offered trial of Neurontin but she wants to hold on that.
Total time spent on today's encounter was 52 minutes which included time spent in counseling the patient/family regarding diagnosis and treatment plan as listed above, goals of care, and symptom management. Case was discussed with nursing staff,
specialists, and care coordinators/case management. All labs and imaging personally reviewed by me. Remainder the time spent in detailed review of previous records, lab data, imaging, and other medical provider documentation.
[2025-02-16] MEDS: ATIVAN 0.5 MG IV ×2 (13:52→23:53)
--- NOTE | 2025-02-16 14:21 | PTCARENOTE ---
Pt co of SOB pox 96% lungs have rhonchi no wheezing detected . Given prn ativan as ordered, trach collar olaced for humidity
--- NOTE | 2025-02-16 15:37 | PTCARENOTE ---
Pt pulled out trach, was sitting with him and said it was too fast for her stop him. RSP called trach replaced . Pt 100% on trach collar.1:1 present
[2025-02-16] MEDS: ZYPREXA 10 MG TUBE (22:37)
[2025-02-17] VITALS (14 sets, daily range): BP systolic 119–156; BP diastolic 76–108; PULSE 105; O2SAT 95
[2025-02-17] MEDS: ROXICODONE 20 MG TUBE ×6 (05:11→23:37)
[2025-02-17 06:20] LABS: Hematocrit 29.4 % (39.0-52.0); Hemoglobin 9.7 g/dL (13.0-18.0); Mean Corpuscular Hgb 30.6 pg (27.0-31.0); Mean Corpuscular Volume 92.7 fL (80.0-94.0); Mean Platelet Volume 8.7 fL (7.4-10.4); Platelet Count 455 10^3/uL (130-400); Red Blood Cell Count 3.17 10^6/uL (4.70-6.10); Red Cell Dist. Width 15.2 % (11.5-14.5); White Blood Cell Count 9.2 10^3/uL (4.8-10.8)
--- NOTE | 2025-02-17 06:27 | PTCARENOTE ---
Pt able to make needs known by written communication. later in evening Pt requesting medication for feeling unsettles. PRN medication given, see mar. Pt remains on room air with trach in place. Upon Trach care inner canula found to be missing. RT to
bed side to double check this RN finding of no inner canula and to confirm size of trach. Trach is a cuffed Shiley 7.5 but deflated, with no inner canula in place (for spd number [id number]). Pt having multiple liquid stools with suspicious smell, PSYCHOLOGICAL ANTHROPOLOGIST
made aware stool ordered and sent rt in place. Pt Wells also having bloody clots at times, PSYCHOLOGICAL ANTHROPOLOGIST made aware.
[2025-02-17 06:36] LABS: Blood Urea Nitrogen 16 mg/dl (9-20); Calcium 8.1 mg/dl (8.4-10.2); Carbon Dioxide 35 mmol/L (22-30); Chloride 93 mmol/L (98-107); Estimated Creatinine Clearance 91 ml/min; Glucose 126 mg/dl (70-99); Potassium 3.6 mmol/L (3.5-5.1); Sodium 131 mmol/L (135-145); eGFR > 60.00
--- NOTE | 2025-02-17 07:41 | W.PN.HOSP.TC ---
Addendum entered and electronically signed by Tee Tom MD 02/17/25 14:03:
Seen and examined by me independently in collaboration with the chief medical director.
Lab data and imaging data reviewed.
Addendum as below :
Patient trach dislodged yesterday. Patient says by mistake. Communication of the patient is written.
Denies shortness of breath.
No worsening of neck pain he was complaining yesterday.
Saturating well on room air. Hemodynamically stable.
Alert and oriented.
ENT correspondence from today noted. Trach changed to Shiley #6 and the cuff deflated. Breathing comfortably.
Transfer to telemetry.
Start DC planning to rehab
Original Note:
Today's Communication/Plan
-
Try Passy-[place] valve
Change oxycodone to Q4 hourly after reviewing with .
Reviewed with my supervising provider the Passy-[place] valve situation.
Assessment / Plan
Assessment / Plan
Assessment-
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
hypoglossal nerve tumor bed.
Plan-
Ventilator associated pneumonia-
S/p mechanical ventilation for airway protection after massive hemoptysis, caused fevers with green purulent sputum.
Respiratory cultures consistent with MSSA and Pseudomonas aeruginosa from tracheostomy tube, started on vancomycin cefepime and Flagyl.
Switch to Keflex ciprofloxacin and metronidazole via PEG tube from 02/05 through 02/14-finish the course.
Single episode of fever-100.4 yesterday, less likely secondary to infection.
Obtain CBC with differentials, and CMP in the a.m. tomorrow to reassess for any ongoing active infection.
No leukocytosis since 02/07/2025.
ID signed off, secretions improved.
Currently receiving tracheostomy suctions. Baseline COPD with no official diagnosis but noted emphysema on CT-SpO2 goal is 88 to 94%.
ENT changed his tracheostomy to 6 cuffed Shiley. Cuff is deflated. The ENT recommended trying Passy-[place] valve. ENT signed off.
Massive hemoptysis-resolved.
Acute blood loss anemia-
Resolved, secondary to massive hemoptysis from the tumor site, s/p 1 unit RBC
SCC of the tongue base.
Oncology consulted, determined no longer candidate for chemotherapy.
Radiation oncology recommended palliative radiation therapy to temporize bleeding in case patient rebleeds.
Repeat CBC in the a.m. tomorrow.
Acute toxic metabolic encephalopathy-
Multifactorial-likely a confluence of critical disease, infection, antibiotic.
Significantly improved
Some delirium and agitation present even before starting cefepime.
Zyprexa 10 mg, restraints as needed. Recommended refraining from using restraints.
Ativan 0.5 mg as needed.
Hematuria-
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 Hematuria resolved
Wells catheter removed on 02/13-per urology recommendations.
Patient developed acute urinary retention-failed voiding trial, back on Wells on 02/15/2025.
Suspected secondary to neurogenic bladder from radiation-bethanechol added by urology.
Appreciate urology inputs.
Hyponatremia-
Serum sodium at 131
Likely hypovolemic hyponatremia, suspect secondary to Jevity feeds
Continue trending serum sodium if does not improve, obtain SIADH workup.
Emphysema on CT scan, pulmonary nodule of 6 mm
Copious amounts of tracheostomy secretions-
Likely a confluence of infection and decreased clearance from the tumor burden.
Currently patient on DuoNebs, suctioning, Cofflator since 02/07, and Mucinex at 400 4 times daily.
Appreciate pulmonology input. Pulmonology also recommends hospice.
Continue PT OT. Continue aspiration precautions.
GI prophylaxis-on lansoprazole
Chronic pain syndrome-
Due to malignancy, opioid dependence
Continue home medication regimen
Continue 135 morphine milliequivalents per day
Added Dilaudid for moderate and severe pain.
Cachexia-
Severe protein calorie malnutrition based on muscle mass and temporal wasting.
Decreased consumption of oral intake-greater than 20%
BMI at 18.0, currently on Jevity 1.53 times a day.
DVT prophylaxis-SCDs
CODE STATUS-limited DNR (no chest compressions)
Poor prognosis as determined by all specialists.
Anticipated Discharge: 24 - 48 hours
Subjective/Interval History
-
Date of Service: February 17, 2025
Overnight patient had another episode of agitation, he pulled his tracheostomy tube out, continues to remain on one-to-one. A trach collar 7 was placed by physician grants and contracts assistant bedside yesterday night, and was changed to 6 in the AM today. Continues
to have neck pain, could not offer him long-acting opioids given they can be crushed and taken through PEG tube. Patient says he feels ' so-so,' and denies all other complaints.
Objective Data
-
Labs:
Laboratory Results
02/17/25
05:57
WBC 9.2
Hgb 9.7 L
Hct 29.4 L
Plt Count 455 H
Sodium 131 L
Potassium 3.6
Chloride 93 L
Carbon Dioxide 35 H
BUN 16
Creatinine 0.4 L
Glucose 126 H
Calcium 8.1 L
Vital Signs:
Vital Signs
Temp Pulse Resp BP Pulse Ox
98.8 F 96 17 119/76 95
02/17/25 03:19 02/17/25 06:00 02/17/25 06:00 02/17/25 06:00 02/17/25 06:00
I&O
02/16/25 02/17/25 02/18/25
06:59 06:59 06:59
Intake Total 880 / 880
Output Total 1175 / 1175 1200 / 1200
Balance -1175 / -1175 -320 / -320
Review of Systems
-
History Source: Patient
Constitutional: Reports Fatigue and Weakness
EENT: Reports Other (Neck pain, right greater than left, radiating into his head. Trach collar-changed today to 6 cuffed.)
Respiratory: Reports Cough; Denies Trouble Breathing
Cardiac: Reports No Symptoms
Abdomen/GI: Reports No Symptoms
Genitourinary: Reports No Symptoms
Musculoskeletal: Reports No Symptoms
Skin: Reports No Symptoms
Neuro: Reports No Symptoms
Hematologic / Lymphatic: Reports No Symptoms
Physical Exam
-
General: No Apparent Distress and Comfortable
HEENT: Negative Moist Mucous Membranes
Respiratory: Wheezes (Across all lung lobes) and Crackles (Across all lung lobes); Negative Rales or Rhonchi
Cardiac: Regular Rhythm and S1/S2; Negative Murmur, Rub or Gallop
GI: Soft, Nontender, Nondistended and Normal Bowel Sounds
Musculoskeletal: No Clubbing, No Cyanosis, Edema, Right Lower Extrem (Trace pedal edema) and Edema, Left Lower Extrem (Trace pedal edema)
Neuro: AO x 3 and No Motor Deficits
Psych: Calm
Data Reviewed
-
Labs: Labs Reviewed by me and Discussed with Physician
[2025-02-17] MEDS: ATIVAN 0.5 MG TUBE (08:20)
[2025-02-17] MEDS: URECHOLINE 25 MG PO ×3 (08:20→22:19)
[2025-02-17] MEDS: ROBITUSSIN 400 MG TUBE ×4 (08:20→22:17)
[2025-02-17] MEDS: PREVACID 30 MG TUBE (08:21)
[2025-02-17] MEDS: LIDOCAINE 4% PATCH 1 PATCH TOPICAL (08:21)
[2025-02-17] MEDS: DELTASONE 20 MG TUBE (08:21)
--- NOTE | 2025-02-17 08:23 | W.PN.UPDATE ---
Update Note
Progress Note Update
pt's trach fell out yesterday, replaced but with no inner cannula
changed to #6 cuffed Bonifacio . he had been breathing fine with this before.
can keep cuff deflated and try Passy [place] valve with this trach
contact again if needed
--- NOTE | 2025-02-17 08:36 | PTCARENOTE ---
ENT heree changed trach to 6.5 maryannekey with an inner cannula . pt on RA meds given via PEG . Wells dath in place draining yellow urine
--- NOTE | 2025-02-17 09:07 | RESPNOTE ---
0820 - patient using humidified trach collar PRN - not currently using
--- NOTE | 2025-02-17 10:42 | W.PN.ONC2 ---
Today's Communication / Plan
-
.
Impression
Impression
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
ABLA from tumor s/p 1 UPRBC /, Hgb remain stable, last amicar 02/02
Fever, not neutropenic -resolved
PEG
Trach
chronic pain, on chronic opioids
malnutrition
Plan
Plan
currently goals remain restorative with plan for SNF to improve PS
could consider RT BID x 2 days to help control bleeding after discharge once he returns home
At this point, patient and understand that PS precludes systemic palliative therapy at this time and hospice is appropriate
pain management
monitor for bleeding
Subjective/Objective
Subjective
on 1:1
sitting in chair no distress
using pain medication for neck pain
denies overt bleeding
Vital Signs:
Vital Signs
Temp Pulse Resp BP Pulse Ox
98.8 F 98 19 124/80 96
02/17/25 07:30 02/17/25 08:00 02/17/25 08:00 02/17/25 08:00 02/17/25 08:00
Lab Results:
Laboratory Data
WBC 9.2 10^3/uL (4.8-10.8) 02/17/25 05:57
Hgb 9.7 g/dL (13.0-18.0) L 02/17/25 05:57
Plt Count 455 10^3/uL (130-400) H 02/17/25 05:57
PT 15.3 Sec (11.4-14.6) H 01/29/25 16:44
INR 1.16 01/29/25 16:44
APTT 25.4 Sec (23.4-35.0) 01/29/25 16:44
eGFR > 60.00 02/17/25 05:57
Physical Exam
General: Appears Chronically Ill and Other (trach)
HEENT: Moist Mucous Membranes; Negative Jaundice. tenderness over the right masseter area on palpatation
Cardiology: Normal Sinus Rhythm
Pulmonary: scattered rhonchi
GI: Soft and Other (PEG), fecal management system with liquid stool
salazar with yellow urine
Extremities: Pulses Present; Negative Edema
Skin: Warm
--- NOTE | 2025-02-17 10:45 | CHAP ---
Spoke with Mr. Arguello without his present. I said that some folks felt like he was giving mixed messages regarding hospice vs. rehab and he wrote 'how can I pick?' I said we just wanted to make sure that his needs were expressed and wishes
known, and he told me to talk to his . I will do so this afternoon. There were words on his paper that I could not make out, but when I asked him to confirm that he was saying I should talk to his and he wanted to keep working towards
rehab he indicated 'yes' by nodding. Will follow.
--- NOTE | 2025-02-17 12:03 | CM ---
CM reviewed chart and discussed with nurse. ADC >48 hours.
Patient remains on 1:1, new trach placed. PEG/tube feeds.
Therapy continues to follow.
Discussion with Alba Montaño in Admissions, referral remains under review.
Ongoing GOC discussions, per prior CM notes, Spous and pt not ready for hospice.
Discharge plan: SNF pending auth
--- NOTE | 2025-02-17 12:11 | PTCARENOTE ---
Report to [id number], made aware of transfer. Brother here to visit.
[2025-02-17 13:34] LABS: Osmolality Urine 678 mOsm/kg (300-900)
[2025-02-17 14:33] LABS: Osmolality Serum 272 mOsm/kg (275-300)
[2025-02-17 14:54] LABS: Urine Sodium 7 mmol/L (30-90)
[2025-02-17] MEDS: ZYPREXA 10 MG TUBE (22:17)
[2025-02-18] VITALS (7 sets, daily range): BP systolic 140–163; BP diastolic 74–97
[2025-02-18] MEDS: ROXICODONE 20 MG TUBE ×6 (04:01→23:38)
[2025-02-18] MEDS: PREVACID 30 MG TUBE (08:31)
[2025-02-18] MEDS: URECHOLINE 25 MG PO ×3 (08:31→22:43)
[2025-02-18] MEDS: ROBITUSSIN 400 MG TUBE ×4 (08:32→20:39)
[2025-02-18] MEDS: ATIVAN 0.5 MG TUBE (08:32)
[2025-02-18] MEDS: LIDOCAINE 4% PATCH 1 PATCH TOPICAL (08:32)
[2025-02-18] MEDS: DELTASONE 20 MG TUBE (08:32)
--- NOTE | 2025-02-18 10:16 | WOUNDNOTE ---
ZARA RN NOTE: Patient is on Accumax bed after being transferred from IMU. Asked nurse Yaritza to apply air overlay to bed, turning schedule in place. Nurse confirmed she will apply.
--- NOTE | 2025-02-18 12:14 | CM ---
CM following re: discharge planning.
Reviewed pt's chart, met with pt and spoke to pt's spouse over the phone to update on discharge plan progress.
PT and OT continue recommending SNF level of carte. Preferred SNF is [facility].
CM spoke to [facility] credit director and she confirmed that after detailed review pt's clinical their team made a final decision to denied pt's admission to [facility].
CM spoke to pt's spouse, she brought her disappointed feelings stating: 'What should I do, if no nursing accepts my I would need to bring him home, I will take 1 week off from work and I will take care of him'. Emotional support offered and
provided.
Other options of SNFs and acute custodial care hospitals like [facility] discussed with the pt's spouse. Pt's spouse she will not go to [facility] where [facility] locates. Pt's spouse asked to try following SNFs: [facility], [facility],
[facility] SN[facility], [facility] and [facility] SNF. A referral to above SNFs made. Awaiting for determination.
D/C plan: Plan A: preferred SNF if available. Plan B: home with [facility] and family support.
CM will follow with discharge plan updates as hospitalization progresses.
--- NOTE | 2025-02-18 12:59 | PTCARENOTE ---
Patient was seen by PT/OT today. pt refused PT/OT. Pain medication administered as schedule. . plan of care ongoing.
--- NOTE | 2025-02-18 16:23 | W.PN.HOSP.TC ---
Addendum entered and electronically signed by Tee Tom MD 02/18/25 16:45:
Seen and examined by me independently in collaboration with the medical staff services coordinator.
Lab data and imaging data reviewed.
Addendum as below :
Patient in written communication states his trouble with breathing especially with his current size cuff. He also having more secretions requiring suctioning. Chest with rhonchorous breathing but no respiratory distress. Remains stable on room
air. Will ask ENT to change to Shiley 8 size as appropriate.
Tolerating tube feeds.
Start DC planning
Original Note:
Today's Communication/Plan
-
Stable for discharge.
ENT to change to 8 uncuffed Shiley.
Jevity fluid rate changed to 35 push.
Assessment / Plan
Assessment / Plan
Assessment-
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
hypoglossal nerve tumor bed.
Plan-
Ventilator associated pneumonia-
S/p mechanical ventilation for airway protection after massive hemoptysis, caused fevers with green purulent sputum.
Respiratory cultures consistent with MSSA and Pseudomonas aeruginosa from tracheostomy tube, started on vancomycin cefepime and Flagyl.
Switch to Keflex ciprofloxacin and metronidazole via PEG tube from 02/05 through 02/14-finish the course.
Single episode of fever-100.4 yesterday, less likely secondary to infection.
Obtain CBC with differentials, and CMP in the a.m. tomorrow to reassess for any ongoing active infection.
No leukocytosis since 02/07/2025.
ID signed off, secretions improved.
Currently receiving tracheostomy suctions. Baseline COPD with no official diagnosis but noted emphysema on CT-SpO2 goal is 88 to 94%.
ENT changed his tracheostomy to 6 cuffed Shiley. Cuff is deflated. The ENT recommended trying Pass[place] valve. ENT signed off.
Difficulty breathing -
Patient states that secondary to 6 cuffed Shiley
He would prefer 8 cuffed Shiley.
ENT reconsulted.
Placed an order for 8 cuffed Shiley with Passy-[place] valve.
Massive hemoptysis-resolved.
Acute blood loss anemia-
Resolved, secondary to massive hemoptysis from the tumor site, s/p 1 unit RBC
SCC of the tongue base.
Oncology consulted, determined no longer candidate for chemotherapy.
Radiation oncology recommended palliative radiation therapy to temporize bleeding in case patient rebleeds.
Repeat CBC in the a.m. tomorrow.
Acute toxic metabolic encephalopathy-
Multifactorial-likely a confluence of critical disease, infection, antibiotic.
Significantly improved
Some delirium and agitation present even before starting cefepime.
Zyprexa 10 mg, restraints as needed. Recommended refraining from using restraints.
Ativan 0.5 mg as needed.
Hematuria-
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 Hematuria resolved
Wells catheter removed on 02/13-per urology recommendations.
Patient developed acute urinary retention-failed voiding trial, back on Wells on 02/15/2025.
Suspected secondary to neurogenic bladder from radiation-bethanechol added by urology.
Appreciate urology inputs.
Hyponatremia-
Serum sodium at 131
Likely hypovolemic hyponatremia, suspect secondary to Jevity feeds
Continue trending serum sodium if does not improve, obtain SIADH workup.
Emphysema on CT scan, pulmonary nodule of 6 mm
Copious amounts of tracheostomy secretions-
Likely a confluence of infection and decreased clearance from the tumor burden.
Currently patient on DuoNebs, suctioning, Cofflator since 02/07, and Mucinex at 400 4 times daily.
Appreciate pulmonology input. Pulmonology also recommends hospice.
Continue PT OT. Continue aspiration precautions.
GI prophylaxis-on lansoprazole
Chronic pain syndrome-
Due to malignancy, opioid dependence
Continue home medication regimen
Continue 135 morphine milliequivalents per day
Added Dilaudid for moderate and severe pain.
Cachexia-
Severe protein calorie malnutrition based on muscle mass and temporal wasting.
Decreased consumption of oral intake-greater than 20%
BMI at 18.0, currently on Jevity 1.53 times a day.
DVT prophylaxis-SCDs
CODE STATUS-limited DNR (no chest compressions)
Poor prognosis as determined by all specialists.
Anticipated Discharge: 24 - 48 hours
Subjective/Interval History
-
Date of Service: February 18, 2025
Patient reports breathing difficulty with tracheostomy tube size 6. He states he is more interested in breathing than talking at this point and wants to breathe comfortably.
His sodium is suspected likely secondary to insensible losses from tracheostomy suctioning.
Patient denied all other symptoms.
Objective Data
-
Vital Signs:
Vital Signs
Temp Pulse Resp BP Pulse Ox
98.4 F 106 20 163/97 95
02/18/25 15:00 02/18/25 15:00 02/18/25 15:00 02/18/25 15:00 02/18/25 15:00
I&O
02/17/25 02/18/25 02/19/25
06:59 06:59 06:59
Intake Total 880 / 880 0 / 0
Output Total 1200 / 1200 1900 / 1900
Balance -320 / -320 -1900 / -1900
Review of Systems
-
History Source: Patient
All other systems: Reviewed and negative
Constitutional: Reports Fatigue and Weakness
Respiratory: Reports Cough and Trouble Breathing
Cardiac: Reports No Symptoms
Abdomen/GI: Reports No Symptoms
Genitourinary: Reports No Symptoms
Musculoskeletal: Reports No Symptoms
Neuro: Reports No Symptoms
Hematologic / Lymphatic: Reports No Symptoms
Physical Exam
-
Respiratory: Wheezes (in b/l upper lobes, ), Crackles and Accessory Resp Muscle Use; Negative Clear to Auscultation, Rales or Rhonchi
Cardiac: Regular Rhythm and S1/S2; Negative Murmur, Rub or Gallop
GI: Soft, Nontender, Nondistended and Normal Bowel Sounds
Musculoskeletal: No Clubbing, No Cyanosis and No Edema
Skin: Warm
Neuro: AO x 3 and No Motor Deficits
Psych: Calm
Data Reviewed
-
Labs: Labs Reviewed by me, Discussed with Physician and Discussed with Nurse
--- NOTE | 2025-02-18 17:28 | DOWNTIME ---
There was a [employer] Downtime on 02/18/2025 from 1230 to 02/18/2025 at 1550. Downtime documentation of patient's care, including medication administrations, has been reconciled in the electronic record per guidelines. Refer to the
patient's paper chart under the miscellaneous tab to see printed paper medication records and downtime forms.
[2025-02-18] MEDS: ZYPREXA 10 MG TUBE (20:39)
[2025-02-19] VITALS (7 sets, daily range): BP systolic 127–149; BP diastolic 73–90; PULSE 97; O2SAT 93
[2025-02-19] MEDS: DUONEB 3 ML INH (02:01)
--- NOTE | 2025-02-19 02:12 | W.PN.UPDATE ---
Update Note
Progress Note Update
Called to evaluate patient for increased secretions, wheezing and increased accessory muscle use. Pt on room air 21%, Trach collar w/humidification, O2 sat 92-94%. RR 20. Ordered duoneb, respiratory at bedside. Duoneb treatment given by respiratory.
Inner canula removed by respiratory and was clogged w/thick parnell secretions, left inner cannula out at this time. Patient suctioned for copious secretions and patient able to cough secretions up on his own. Patient states he feels better, no longer
wheezing, respirations unlabored, continues to wear humidified trach collar.
[2025-02-19] MEDS: ROXICODONE 20 MG TUBE ×5 (04:20→21:27)
--- NOTE | 2025-02-19 04:40 | PTCARENOTE ---
late note due to patient care:
During the shift pt had copious thick secretions. pt was suctioned 3 times using fine suction. RN was unable to advance the catheter more that 3cms into the cannula before meeting resistance. RT was contact for assistance. Pt was placed on
humidified air at this time but refused to be suctioned by the RT.
Pt later was showing signs of mild resp distress with supraclavicular retractions and use of the abd muscles. SPO2 remained @ 95 on room air. ( off of the humidification, as pt had Provider was contacted for orders. Duoneb placed. RT contacted and
came to administer the neb. Inner cannula was removed and found to have copious thick secretions.. trach was left open, orburator and shiley of the same size at the bedside. Pt's distress resolved.
RN discussed with pt the importance of using the humidification to prevent to formation of mucus plugs. RN reemphasized pt's goal to become more independent and to leave the hospital and eventually return home. Pt agreed that this was the goal of
his care and agreed to keep the trach collar on. Pt requested that his be updated by the RN.
Pt is resting comfortably with even respirations, 1:1 at bedside. call fall within reach.
--- NOTE | 2025-02-19 08:14 | W.PN.ENT ---
Today's Communication
-
pt seen at bedside
Impression / Plan
-
pt currently refusing trach change or replacement of inner cannula despite my explaing rationale behind inner cannula
Subjective Data
-
asked to see patient to change trach to #8
patient ventilating well with 6 currently but has significant secretions
Objective Data
-
Vital Signs
Temp Pulse Resp BP Pulse Ox
98.9 F 93 16 143/73 99
02/19/25 07:20 02/19/25 07:20 02/19/25 07:20 02/19/25 07:20 02/19/25 07:20
Intake & Output
02/18/25 02/19/25 02/20/25
06:59 06:59 06:59
Intake:
Oral fluids 0 / 0 120 / 120
Output:
Liquid stool amount 450 / 450
Rectum 450 / 450
Urine, Wells 1450 / 1450 725 / 725
Urine, Voided 300 / 300
Lab Results
02/17/25 05:57
02/17/25 05:57
PT 15.3 Sec (11.4-14.6) H 01/29/25 16:44
INR 1.16 01/29/25 16:44
APTT 25.4 Sec (23.4-35.0) 01/29/25 16:44
Calcium 8.1 mg/dl (8.4-10.2) L 02/17/25 05:57
Phosphorus 3.1 mg/dl (2.5-4.5) 02/09/25 03:33
Magnesium 1.8 mg/dl (1.6-2.3) 02/09/25 03:33
Total Bilirubin 0.4 mg/dl (0.2-1.3) 02/09/25 03:33
AST 17 U/L (17-59) 02/09/25 03:33
ALT 18 U/L (0-50) 02/09/25 03:33
Alkaline Phosphatase 94 U/L (38-126) 02/09/25 03:33
Triglycerides 74 mg/dl (10-149) 02/04/25 03:21
Urine Color Brown 02/11/25 16:54
Urine Clarity Cloudy (Clear) 02/11/25 16:54
Urine pH 5.0 (5.0-9.0) 02/11/25 16:54
Ur Specific [place] 1.020 (<1.030) 02/11/25 16:54
Urine Ketones 1+ (Negative) A 02/11/25 16:54
Physical Exam
-
trach in pace
ventilating well
inner cannula not in place
Chest: Clear
Respiratory: Clear
Data Reviewed
-
Radiology Results: Report Reviewed
--- NOTE | 2025-02-19 08:20 | W.PN.ONC2 ---
Today's Communication / Plan
-
discharge planning
Impression
Impression
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
ABLA from tumor s/p 1 UPRBC /, Hgb remain stable, last amicar 02/02
Fever, not neutropenic -resolved
PEG
Trach
chronic pain, on chronic opioids
malnutrition
Plan
Plan
currently goals remain restorative with plan for SNF to improve PS
could consider RT BID x 2 days to help control bleeding after discharge once he returns home
At this point, patient and understand that PS precludes systemic palliative therapy at this time and hospice is appropriate
pain management
monitor for bleeding
Subjective/Objective
Subjective
no new complaints
denies overt bleeding
sitting in chair on 1:1
Vital Signs:
Vital Signs
Temp Pulse Resp BP Pulse Ox
98.9 F 93 16 143/73 99
02/19/25 07:20 02/19/25 07:20 02/19/25 07:20 02/19/25 07:20 02/19/25 07:20
Lab Results:
Laboratory Data
WBC 9.2 10^3/uL (4.8-10.8) 02/17/25 05:57
Hgb 9.7 g/dL (13.0-18.0) L 02/17/25 05:57
Plt Count 455 10^3/uL (130-400) H 02/17/25 05:57
PT 15.3 Sec (11.4-14.6) H 01/29/25 16:44
INR 1.16 01/29/25 16:44
APTT 25.4 Sec (23.4-35.0) 01/29/25 16:44
eGFR > 60.00 02/17/25 05:57
Physical Exam
General: Appears Chronically Ill
HEENT: Moist Mucous Membranes; Negative Jaundice. tenderness over the right masseter area on palpitation. trach with significant secretions (non-bloody)
Cardiology: Normal Sinus Rhythm
Pulmonary: scattered rhonchi
GI: Soft and Other (PEG), fecal management system with liquid stool
salazar with yellow urine
Extremities: Pulses Present; Negative Edema
Skin: Warm
[2025-02-19] MEDS: ATIVAN 0.5 MG TUBE (09:59)
[2025-02-19] MEDS: ROBITUSSIN 400 MG TUBE ×4 (09:59→21:26)
[2025-02-19] MEDS: PREVACID 30 MG TUBE (09:59)
[2025-02-19] MEDS: URECHOLINE 25 MG PO ×3 (09:59→23:18)
[2025-02-19] MEDS: LIDOCAINE 4% PATCH TOPICAL ×2 (09:59)
[2025-02-19] MEDS: DELTASONE 20 MG TUBE (10:01)
--- NOTE | 2025-02-19 10:59 | W.PN.HOSP.TC ---
Addendum entered and electronically signed by Tee Tom MD 02/19/25 13:35:
Seen and examined by me independently in collaboration with the manager medical device.
Lab data and imaging data reviewed.
Addendum as below :
Last evening events noted. Patient had respiratory distress creations including clogged inner cannula with mucus and could not be replaced.
Patient initially said no but agreed for trach switch-currently switched to 8 cuffed Shiley without difficulty by ENT today. To leave the cuff deflated to help us with speaking valve if he so desires. Cuffed trach is safer in case he rebleeds.
Saturating well on room air.
Tolerating tube feeds.
Will start a discharge plan.
Original Note:
Today's Communication/Plan
-
Shiley cuffed 8 tracheostomy tube
another order of shiley for replacement at [facility]
Plan for discharge
Assessment / Plan
Assessment / Plan
Assessment-
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
hypoglossal nerve tumor bed.
Plan-
Ventilator associated pneumonia-
S/p mechanical ventilation for airway protection after massive hemoptysis, caused fevers with green purulent sputum.
Respiratory cultures consistent with MSSA and Pseudomonas aeruginosa from tracheostomy tube, started on vancomycin cefepime and Flagyl.
Switch to Keflex ciprofloxacin and metronidazole via PEG tube from 02/05 through 02/14-finish the course.
Single episode of fever-100.4 yesterday, less likely secondary to infection.
Obtain CBC with differentials, and CMP in the a.m. tomorrow to reassess for any ongoing active infection.
No leukocytosis since 02/07/2025.
ID signed off, secretions improved.
Currently receiving tracheostomy suctions. Baseline COPD with no official diagnosis but noted emphysema on CT-SpO2 goal is 88 to 94%.
ENT changed his tracheostomy to 6 cuffed Shiley. Cuff is deflated. The ENT recommended trying Passy-[place] valve.
Difficulty breathing -
Patient states that secondary to 6 cuffed Shiley
He would prefer 8 cuffed Shiley.
ENT reconsulted.
Placed an order for 8 cuffed Shiley with Passy-[place] valve.
Massive hemoptysis-resolved.
Acute blood loss anemia-
Resolved, secondary to massive hemoptysis from the tumor site, s/p 1 unit RBC
SCC of the tongue base.
Oncology consulted, determined no longer candidate for chemotherapy.
Radiation oncology recommended palliative radiation therapy to temporize bleeding in case patient rebleeds.
Repeat CBC in the a.m. tomorrow.
Acute toxic metabolic encephalopathy-
Multifactorial-likely a confluence of critical disease, infection, antibiotic.
Significantly improved
Some delirium and agitation present even before starting cefepime.
Zyprexa 10 mg, restraints as needed. Recommended refraining from using restraints.
Ativan 0.5 mg as needed.
Hematuria-
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 Hematuria resolved
Wells catheter removed on 02/13-per urology recommendations.
Patient developed acute urinary retention-failed voiding trial, back on Wells on 02/15/2025.
Suspected secondary to neurogenic bladder from radiation-bethanechol added by urology.
Appreciate urology inputs.
Hyponatremia-
Serum sodium at 131
Likely hypovolemic hyponatremia, suspect secondary to Jevity feeds
Continue trending serum sodium if does not improve, obtain SIADH workup.
Emphysema on CT scan, pulmonary nodule of 6 mm
Copious amounts of tracheostomy secretions-
Likely a confluence of infection and decreased clearance from the tumor burden.
Currently patient on DuoNebs, suctioning, Cofflator since 02/07, and Mucinex at 400 4 times daily.
Appreciate pulmonology input. Pulmonology also recommends hospice.
Continue PT OT. Continue aspiration precautions.
GI prophylaxis-on lansoprazole
Chronic pain syndrome-
Due to malignancy, opioid dependence
Continue home medication regimen
Continue 135 morphine milliequivalents per day
Added Dilaudid for moderate and severe pain.
Cachexia-
Severe protein calorie malnutrition based on muscle mass and temporal wasting.
Decreased consumption of oral intake-greater than 20%
BMI at 18.0, currently on Jevity 1.53 times a day.
DVT prophylaxis-SCDs
CODE STATUS-limited DNR (no chest compressions)
Poor prognosis as determined by all specialists.
Anticipated Discharge: 24 - 48 hours
Subjective/Interval History
-
Date of Service: February 19, 2025
Patient declined change of trach tube today, stated that he is super tired and sick of everything at the hospital. He said he needs a break. Denied all symptoms today.
Objective Data
-
Vital Signs:
Vital Signs
Temp Pulse Resp BP Pulse Ox
98.9 F 93 16 143/73 99
02/19/25 07:20 02/19/25 07:20 02/19/25 07:20 02/19/25 07:20 02/19/25 07:20
I&O
02/18/25 02/19/25 02/20/25
06:59 06:59 06:59
Intake Total 0 / 0 120 / 120
Output Total 1900 / 1900 1025 / 1025
Balance -1900 / -1900 -905 / -905
Review of Systems
-
History Source: Patient
All other systems: Reviewed and negative
EENT: Reports No Symptoms Reported
Respiratory: Reports No Symptoms
Cardiac: Reports No Symptoms
Abdomen/GI: Reports No Symptoms
Breast: Reports No Symptoms
Genitourinary: Reports No Symptoms
Musculoskeletal: Reports No Symptoms
Skin: Reports No Symptoms
Neuro: Reports No Symptoms
Endocrine: Reports No Symptoms
Hematologic / Lymphatic: Reports No Symptoms
Allergy / Immunology: Reports No Symptoms
Physical Exam
-
General: No Apparent Distress and Comfortable
HEENT: Moist Mucous Membranes, Anicteric and [place] Conjunctivae
Respiratory: Clear to Auscultation (In bilateral lower lobes) and Wheezes (In bilateral upper lobes); Negative Rales, Rhonchi or Crackles
Cardiac: Regular Rhythm and S1/S2; Negative Murmur, Rub or Gallop
GI: Soft, Nontender, Nondistended and Normal Bowel Sounds
Musculoskeletal: No Clubbing, No Cyanosis and No Edema
Skin: Warm
Neuro: AO x 3 and No Motor Deficits
Psych: Calm
--- NOTE | 2025-02-19 11:37 | W.PN.UPDATE ---
Update Note
Progress Note Update
Pt c #6 Shirebel, breathing comforatably, but had inner cannula clogged c mucus and it has not been replaced
While pt presently stable, would be safer with inner cannula in case of additional mucus plugging
Switched to #8 cuffed Shiley without diffuculty
Can leave cuff deflated to help with speaking valve if he so desires. Cuffed trach still safer given his history of bleeding , which could be inflated to protect airway if rebleeds
contact again if needed
--- NOTE | 2025-02-19 14:09 | CM ---
CM following re: discharge planning.
Reviewed pt's chart, met with pt and spoke to pt's spouse over the phone to update on discharge plan progress.
PT and OT continue recommending SNF level of care.
[facility], [facility] and [facility] offered a bed.
CM spoke to pt's spouse and she stated she preferred [facility] and she spoke to [facility] liaison already.
[facility]
Accepting physician: Foster Berger
D/C plan: [facility].
CM will follow to assist pt with discharge to [facility].
[2025-02-19 18:28] LABS: Glucose - Point of Care 154 mg/dl (70-99)
[2025-02-19] MEDS: TYLENOL ORAL SOLUTION 650 MG TUBE (21:26)
[2025-02-19] MEDS: ROBINUL 1 MG TUBE (21:26)
[2025-02-19] MEDS: DESYREL 50 MG TUBE (21:27)
[2025-02-19] MEDS: ZYPREXA 10 MG TUBE (21:27)
[2025-02-20] MEDS: ROXICODONE 20 MG TUBE ×6 (00:24→20:09)
[2025-02-20 03:27] VITALS: BP 146/80
[2025-02-20 07:15] VITALS: BP 146/79
[2025-02-20] MEDS: DELTASONE 20 MG TUBE (08:54)
[2025-02-20] MEDS: ATIVAN 0.5 MG TUBE (08:54)
[2025-02-20] MEDS: URECHOLINE 25 MG PO ×2 (08:54→16:27)
[2025-02-20] MEDS: PREVACID 30 MG TUBE (08:54)
[2025-02-20] MEDS: ROBITUSSIN 400 MG TUBE (08:54)
[2025-02-20] MEDS: LIDOCAINE 4% PATCH TOPICAL (08:57)
[2025-02-20 11:50] VITALS: BP 141/81
[2025-02-20] MEDS: TYLENOL ORAL SOLUTION 650 MG TUBE (12:14)
--- NOTE | 2025-02-20 12:33 | CM ---
CM following re: discharge planning.
Reviewed pt's chart, met with pt and spoke to pt's spouse over the phone to update on discharge plan progress.
PT and OT continue recommending SNF level of care.
[facility] accepted the pt and per liaison, [facility] staff has major concerns bringing the pt today due to pt's medical complexity and they requested to admit the pt on Sunday to make sure full staff is amiable to provide
necessary care.
Pt's spouse is aware, expressed her great satisfaction with a plan.
MD is aware of the above.
[facility]
Accepting physician: Foster Berger
D/C plan: [facility].
CM will follow to assist pt with discharge to [facility]
--- NOTE | 2025-02-20 14:48 | W.PN.HOSP.TC ---
Addendum entered and electronically signed by Tee Tom MD 02/20/25 15:09:
Total time spent on today's encounter was 52 minutes which included time spent in counseling the patient/family regarding diagnosis and treatment plan as listed above, goals of care, and symptom management. Case was discussed with nursing staff,
specialists, and care coordinators/case management. All labs and imaging personally reviewed by me. Remainder the time spent in detailed review of previous records, lab data, imaging, and other medical provider documentation.
Denies shortness of breath. Tolerating current trach tube. Secretions are thin and easily suctioned.
Tolerating tube feeds.
Alert. No distress.
- Medical stability for discharge to rehab. Ongoing disposition efforts.
Original Note:
Today's Communication/Plan
-
Passy-Marilee valve placement.
Continue current medications.
Pending discharge to SNF.
Assessment / Plan
Assessment / Plan
Assessment-
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
hypoglossal nerve tumor bed.
Plan-
Ventilator associated pneumonia-
S/p mechanical ventilation for airway protection after massive hemoptysis, caused fevers with green purulent sputum.
Respiratory cultures consistent with MSSA and Pseudomonas aeruginosa from tracheostomy tube, started on vancomycin cefepime and Flagyl.
Switch to Keflex ciprofloxacin and metronidazole via PEG tube from 02/05 through 02/14-finish the course.
Single episode of fever-100.4 yesterday, less likely secondary to infection.
Obtain CBC with differentials, and CMP in the a.m. tomorrow to reassess for any ongoing active infection.
No leukocytosis since 02/07/2025.
ID signed off, secretions improved.
Currently receiving tracheostomy suctions. Baseline COPD with no official diagnosis but noted emphysema on CT-SpO2 goal is 88 to 94%.
ENT changed his tracheostomy to 6 cuffed Shiley. Cuff is deflated. The ENT recommended trying Passy-[place] valve.
Difficulty breathing -
Patient states that secondary to 6 cuffed Shiley
He would prefer 8 cuffed Shiley.
ENT reconsulted.
Placed an order for 8 cuffed Shiley with Passy-Marilee valve.
Massive hemoptysis-resolved.
Acute blood loss anemia-
Resolved, secondary to massive hemoptysis from the tumor site, s/p 1 unit RBC
SCC of the tongue base.
Oncology consulted, determined no longer candidate for chemotherapy.
Radiation oncology recommended palliative radiation therapy to temporize bleeding in case patient rebleeds.
Repeat CBC in the a.m. tomorrow.
Acute toxic metabolic encephalopathy-
Multifactorial-likely a confluence of critical disease, infection, antibiotic.
Significantly improved
Some delirium and agitation present even before starting cefepime.
Zyprexa 10 mg, restraints as needed. Recommended refraining from using restraints.
Ativan 0.5 mg as needed.
Hematuria-
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 Hematuria resolved.
Finally Wells catheter removed on 02/19/2025. Patient passed voiding trial.
Continues to remain on bethanechol per urology.
Wells catheter removed on 02/13-per urology recommendations.
Patient developed acute urinary retention-failed voiding trial, back on Wells on 02/15/2025.
Suspected secondary to neurogenic bladder from radiation-bethanechol added by urology.
Hyponatremia-
Serum sodium at 131
Likely hypovolemic hyponatremia, suspect secondary to Jevity feeds
Continue trending serum sodium if does not improve, obtain SIADH workup.
Emphysema on CT scan, pulmonary nodule of 6 mm
Copious amounts of tracheostomy secretions-
Likely a confluence of infection and decreased clearance from the tumor burden.
Currently patient on DuoNebs, suctioning, Cofflator since 02/07, and Mucinex at 400 4 times daily.
Appreciate pulmonology input. Pulmonology also recommends hospice.
Continue PT OT. Continue aspiration precautions.
GI prophylaxis-on lansoprazole
Chronic pain syndrome-
Due to malignancy, opioid dependence
Continue home medication regimen
Continue 135 morphine milliequivalents per day
Added Dilaudid for moderate and severe pain.
Cachexia-
Severe protein calorie malnutrition based on muscle mass and temporal wasting.
Decreased consumption of oral intake-greater than 20%
BMI at 18.0, currently on Jevity 1.53 times a day.
DVT prophylaxis-SCDs
CODE STATUS-limited DNR (no chest compressions)
Poor prognosis as determined by all specialists.
Anticipated Discharge: > 48 hours
Subjective/Interval History
-
Date of Service: February 20, 2025
No symptoms today.
Objective Data
-
Vital Signs:
Vital Signs
Temp Pulse Resp BP Pulse Ox
100.4 F H 103 22 141/81 93
02/20/25 11:50 02/20/25 11:50 02/20/25 11:50 02/20/25 11:50 02/20/25 11:50
I&O
02/19/25 02/20/25 02/21/25
06:59 06:59 06:59
Intake Total 120 / 120 120 / 120
Output Total 1025 / 1025 1360 / 1360
Balance -905 / -905 -1240 / -1240
Review of Systems
-
History Source: Patient
Constitutional: Reports No Symptoms
Respiratory: Reports Trouble Breathing (Improved with trach change.)
Cardiac: Reports No Symptoms
Abdomen/GI: Reports No Symptoms
Genitourinary: Reports No Symptoms
Skin: Reports No Symptoms
Neuro: Reports No Symptoms
Endocrine: Reports No Symptoms
Hematologic / Lymphatic: Reports No Symptoms
Allergy / Immunology: Reports No Symptoms
Physical Exam
-
General: No Apparent Distress, Comfortable and Other (Tracheostomy collar-requiring suctioning.)
HEENT: Moist Mucous Membranes
Respiratory: Wheezes (Across all lung lobes) and Other (Coarse breath sounds across all lung lobe)
Cardiac: Regular Rhythm and S1/S2; Negative Murmur, Rub or Gallop
GI: Soft, Nontender, Nondistended and Normal Bowel Sounds
Genito-urinary: No Costovertebral Tender
Musculoskeletal: No Clubbing, No Cyanosis, Edema, Right Lower Extrem (Trace edema around ankle) and Edema, Left Lower Extrem (Trace edema around ankles)
Neuro: Awake, Alert, Oriented, AO x 3 and DTR's Intact & Symmetrica
Psych: Calm
[2025-02-20 15:00] VITALS: BP 146/83
[2025-02-20] MEDS: ROBINUL 1 MG TUBE ×2 (16:27→22:27)
[2025-02-20 19:22] VITALS: BP 139/82
[2025-02-20] MEDS: URECHOLINE PO ×2 (22:25→22:39)
[2025-02-20] MEDS: ZYPREXA TUBE ×2 (22:25→22:33)
[2025-02-20] MEDS: ATIVAN 0.5 MG IV (22:51)
[2025-02-20] MEDS: NSS (PRESERVATIVE FREE) 10 ML IV (22:52)
[2025-02-20] MEDS: FLUSH (NSS) 2 FLUSH IV (22:56)
[2025-02-20 23:01] VITALS: BP 153/83
[2025-02-20] MEDS: DUONEB 3 ML INH (23:47)
[2025-02-21] MEDS: ROXICODONE 20 MG TUBE ×6 (00:09→20:08)
[2025-02-21 03:53] VITALS: BP 145/91
[2025-02-21] MEDS: TYLENOL ORAL SOLUTION 650 MG TUBE ×2 (04:00→20:07)
--- NOTE | 2025-02-21 05:38 | PTCARENOTE ---
temp 101.3. Excess linens removed, room temp lowered. Cool washcloth placed on patients forehead.
[2025-02-21 07:00] VITALS: BP 142/85
[2025-02-21] MEDS: ATIVAN 0.5 MG TUBE (09:02)
[2025-02-21] MEDS: DELTASONE 20 MG TUBE (09:02)
[2025-02-21] MEDS: PREVACID 30 MG TUBE (09:02)
[2025-02-21] MEDS: URECHOLINE 25 MG PO ×3 (09:03→22:06)
[2025-02-21] MEDS: LIDOCAINE 4% PATCH TOPICAL (09:04)
[2025-02-21 11:00] VITALS: BP 139/80
--- NOTE | 2025-02-21 12:31 | W.PN.HOSP.TC ---
Addendum entered and electronically signed by Tee Tom MD 02/21/25 13:09:
Seen and examined by me independently in collaboration with the medical donation professional.
Lab data and imaging data reviewed.
Addendum as below :
Continue with current treatments.
Ongoing disposition efforts.
Original Note:
Today's Communication/Plan
-
Stable for discharge
Renew oxycodone prescription
PT and OT
Failed Passy-[place] valve trial
Assessment / Plan
Assessment / Plan
Assessment-
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
hypoglossal nerve tumor bed.
Plan-
Ventilator associated pneumonia-
S/p mechanical ventilation for airway protection after massive hemoptysis, caused fevers with green purulent sputum.
Respiratory cultures consistent with MSSA and Pseudomonas aeruginosa from tracheostomy tube, started on vancomycin cefepime and Flagyl.
Switch to Keflex ciprofloxacin and metronidazole via PEG tube from 02/05 through 02/14-finish the course.
Single episode of fever-100.4 yesterday, less likely secondary to infection.
Obtain CBC with differentials, and CMP in the a.m. tomorrow to reassess for any ongoing active infection.
No leukocytosis since 02/07/2025.
ID signed off, secretions improved.
Currently receiving tracheostomy suctions. Baseline COPD with no official diagnosis but noted emphysema on CT-SpO2 goal is 88 to 94%.
ENT changed his tracheostomy to 8 cuffed Shiley. Cuff is deflated. The ENT recommended trying Passy-[place] valve. Speech therapy and respiratory therapy was at bedside, yesterday tried to do Passy-[place] valve yesterday, patient has trismus from his
malignancy. That limited Passy-[place] valve placement. Patient is encouraged to have communication through gestures and writing.
Difficulty breathing -
Patient states that secondary to 6 cuffed Shiley
He would prefer 8 cuffed Shiley.
ENT reconsulted.
Placed an order for 8 cuffed Shiley with Passy-[place] valve.
Massive hemoptysis-resolved.
Acute blood loss anemia-
Resolved, secondary to massive hemoptysis from the tumor site, s/p 1 unit RBC
SCC of the tongue base.
Oncology consulted, determined no longer candidate for chemotherapy.
Radiation oncology recommended palliative radiation therapy to temporize bleeding in case patient rebleeds.
Repeat CBC in the a.m. tomorrow.
Acute toxic metabolic encephalopathy-
Multifactorial-likely a confluence of critical disease, infection, antibiotic.
Significantly improved
Some delirium and agitation present even before starting cefepime.
Zyprexa 10 mg, restraints as needed. Recommended refraining from using restraints.
Ativan 0.5 mg as needed.
Hematuria-
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 Hematuria resolved.
Finally Wells catheter removed on 02/19/2025. Patient passed voiding trial.
Continues to remain on bethanechol per urology.
Wells catheter removed on 02/13-per urology recommendations.
Patient developed acute urinary retention-failed voiding trial, back on Wells on 02/15/2025.
Suspected secondary to neurogenic bladder from radiation-bethanechol added by urology.
Hyponatremia-
Serum sodium at 131
Likely hypovolemic hyponatremia, suspect secondary to Jevity feeds
Continue trending serum sodium if does not improve, obtain SIADH workup.
Emphysema on CT scan, pulmonary nodule of 6 mm
Copious amounts of tracheostomy secretions-
Likely a confluence of infection and decreased clearance from the tumor burden.
Currently patient on DuoNebs, suctioning, Cofflator since 02/07, and Mucinex at 400 4 times daily.
Appreciate pulmonology input. Pulmonology also recommends hospice.
Continue PT OT. Continue aspiration precautions.
GI prophylaxis-on lansoprazole
Chronic pain syndrome-
Due to malignancy, opioid dependence
Continue home medication regimen
Continue 135 morphine milliequivalents per day
Added Dilaudid for moderate and severe pain.
Cachexia-
Severe protein calorie malnutrition based on muscle mass and temporal wasting.
Decreased consumption of oral intake-greater than 20%
BMI at 18.0, currently on Jevity 1.53 times a day.
DVT prophylaxis-SCDs
CODE STATUS-limited DNR (no chest compressions)
Poor prognosis as determined by all specialists.
Anticipated Discharge: 24 - 48 hours
Subjective/Interval History
-
Date of Service: February 21, 2025
Currently patient is stable on bedside. He does not have any complaints. He is frustrated, and does not want to be bothered by tests.
Objective Data
-
Vital Signs:
Vital Signs
Temp Pulse Resp BP Pulse Ox
98.9 F 104 18 139/80 91
02/21/25 11:00 02/21/25 11:00 02/21/25 11:00 02/21/25 11:00 02/21/25 11:00
I&O
02/20/25 02/21/25 02/22/25
06:59 06:59 06:59
Intake Total 120 / 120 660 / 660
Output Total 1360 / 1360
Balance -1240 / -1240 660 / 660
Review of Systems
-
History Source: Patient
Constitutional: Reports Fatigue and Weakness
Respiratory: Reports No Symptoms
Cardiac: Reports No Symptoms
Abdomen/GI: Reports No Symptoms
Genitourinary: Reports No Symptoms
Musculoskeletal: Reports No Symptoms
Neuro: Reports No Symptoms
Endocrine: Reports No Symptoms
Physical Exam
-
General: No Apparent Distress and Comfortable
HEENT: Moist Mucous Membranes
Respiratory: Clear to Auscultation (b/l lower lobes), Wheezes (b/l upper lobes), Crackles and Other (trach shiley cuffed 8); Negative Rales or Rhonchi
Cardiac: Regular Rhythm and S1/S2; Negative Murmur, Rub or Gallop
GI: Soft, Nontender, Nondistended, Normal Bowel Sounds and Peg Tube
Musculoskeletal: No Clubbing, No Cyanosis, Edema, Right Lower Extrem (trace) and Edema, Left Lower Extrem (trace)
Neuro: AO x 3, No Motor Deficits and DTR's Intact & Symmetrica
Psych: Calm
[2025-02-21 15:00] VITALS: BP 147/86
[2025-02-21] MEDS: ROBINUL 1 MG TUBE (17:06)
[2025-02-21] MEDS: ZYPREXA 10 MG TUBE (22:05)
[2025-02-21] MEDS: DESYREL 50 MG TUBE (22:05)
[2025-02-21 23:03] VITALS: BP 146/83
[2025-02-22] MEDS: ROXICODONE TUBE (00:30)
[2025-02-22] MEDS: ROXICODONE 20 MG TUBE ×5 (03:22→20:00)
[2025-02-22] MEDS: DUONEB 3 ML INH (06:30)
[2025-02-22 07:24] VITALS: BP 114/78
[2025-02-22] MEDS: ROBINUL 1 MG TUBE ×2 (07:54→16:07)
[2025-02-22] MEDS: ATIVAN 0.5 MG TUBE (07:54)
[2025-02-22] MEDS: URECHOLINE 25 MG PO ×3 (07:54→23:00)
[2025-02-22] MEDS: PREVACID 30 MG TUBE (07:55)
[2025-02-22] MEDS: DELTASONE 20 MG TUBE (07:55)
[2025-02-22] MEDS: LIDOCAINE 4% PATCH TOPICAL (07:55)
[2025-02-22] MEDS: FLUSH (NSS) 2 FLUSH IV ×2 (07:56→11:53)
[2025-02-22 09:02] LABS: Hematocrit 30.2 % (39.0-52.0); Hemoglobin 9.8 g/dL (13.0-18.0); Mean Corp Hgb Conc. 32.5 g/dL (33.0-37.0); Mean Corpuscular Hgb 30.1 pg (27.0-31.0); Mean Corpuscular Volume 92.6 fL (80.0-94.0); Mean Platelet Volume 8.8 fL (7.4-10.4); Platelet Count 405 10^3/uL (130-400); Red Blood Cell Count 3.26 10^6/uL (4.70-6.10); Red Cell Dist. Width 15.8 % (11.5-14.5); White Blood Cell Count 9.7 10^3/uL (4.8-10.8)
[2025-02-22 09:40] LABS: Blood Urea Nitrogen 20 mg/dl (9-20); Calcium 8.1 mg/dl (8.4-10.2); Carbon Dioxide 33 mmol/L (22-30); Chloride 89 mmol/L (98-107); Estimated Creatinine Clearance 91 ml/min; Glucose 139 mg/dl (70-99); Potassium 3.6 mmol/L (3.5-5.1); eGFR > 60.00
[2025-02-22 10:49] LABS: Sodium 127 mmol/L (135-145)
[2025-02-22] MEDS: MAXIPIME 2000 MG IV ×2 (11:52→20:00)
[2025-02-22] MEDS: STERILE WATER FOR INJECTION 10 ML IV ×2 (11:52→20:00)
[2025-02-22] MEDS: TYLENOL ORAL SOLUTION 650 MG TUBE ×2 (12:19→23:11)
--- NOTE | 2025-02-22 12:21 | W.PN.HOSP.TC ---
Addendum entered and electronically signed by Tee Tom MD 02/22/25 15:21:
Seen and examined by me independently in collaboration with the nuclear medicine medical director.
Lab data and imaging data reviewed.
Addendum as below :
Patient started to spike fever. He was having increased secretions and needing suctioning and now chest x-ray suggested left lower lobe consolidation and clinical picture is concerning for pneumonia. Based on recent sputum culture we will start
him on cefepime and hold discharge. His not hypoxic and on room air. Hemodynamically stable.
Discussed the plan with the at bedside.
Discussed with RN.
Total time spent on today's encounter was 52 minutes which included time spent in counseling the patient/family regarding diagnosis and treatment plan as listed above, goals of care, and symptom management. Case was discussed with nursing staff,
specialists, and care coordinators/case management. All labs and imaging personally reviewed by me. Remainder the time spent in detailed review of previous records, lab data, imaging, and other medical provider documentation.
Original Note:
Today's Communication/Plan
-
IV cefepime.
Obtain sputum cultures
New lower lobe pneumonia on chest x-ray.
Increase fluid rate in Jevity to 45.
Assessment / Plan
Assessment / Plan
Assessment-
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
hypoglossal nerve tumor bed.
Plan-
New onset fever, SOB - 02/21/25 - overnight
Chest x-ray showed evidence for left lower lobe pneumonia
Fevers with no tachycardia or tachypnea.
Restarted the patient on cefepime after obtaining sputum culture and blood cultures x 2.
Discharge to SNF depending on patient's response to antibiotics.
Ventilator associated pneumonia-
S/p mechanical ventilation for airway protection after massive hemoptysis, caused fevers with green purulent sputum.
Respiratory cultures consistent with MSSA and Pseudomonas aeruginosa from tracheostomy tube, started on vancomycin cefepime and Flagyl.
Switch to Keflex ciprofloxacin and metronidazole via PEG tube from 02/05 through 02/14-finish the course.
Single episode of fever-100.4 yesterday, less likely secondary to infection.
Obtain CBC with differentials, and CMP in the a.m. tomorrow to reassess for any ongoing active infection.
No leukocytosis since 02/07/2025.
ID signed off, secretions improved.
Currently receiving tracheostomy suctions. Baseline COPD with no official diagnosis but noted emphysema on CT-SpO2 goal is 88 to 94%.
ENT changed his tracheostomy to 8 cuffed Shiley. Cuff is deflated. The ENT recommended trying Passy-[place] valve. Speech therapy and respiratory therapy was at bedside, yesterday tried to do Passy-[place] valve yesterday, patient has trismus from his
malignancy. That limited Passy-[place] valve placement. Patient is encouraged to have communication through gestures and writing.
Difficulty breathing -
Patient states that secondary to 6 cuffed Shiley
He would prefer 8 cuffed Shiley.
ENT reconsulted.
Placed an order for 8 cuffed Shiley with Passy-[place] valve.
Massive hemoptysis-resolved.
Acute blood loss anemia-
Resolved, secondary to massive hemoptysis from the tumor site, s/p 1 unit RBC
SCC of the tongue base.
Oncology consulted, determined no longer candidate for chemotherapy.
Radiation oncology recommended palliative radiation therapy to temporize bleeding in case patient rebleeds.
Repeat CBC in the a.m. tomorrow.
Acute toxic metabolic encephalopathy-
Multifactorial-likely a confluence of critical disease, infection, antibiotic.
Significantly improved
Some delirium and agitation present even before starting cefepime.
Zyprexa 10 mg, restraints as needed. Recommended refraining from using restraints.
Ativan 0.5 mg as needed.
Hematuria-
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 Hematuria resolved.
Finally Wells catheter removed on 02/19/2025. Patient passed voiding trial.
Continues to remain on bethanechol per urology.
Wells catheter removed on 02/13-per urology recommendations.
Patient developed acute urinary retention-failed voiding trial, back on Wells on 02/15/2025.
Suspected secondary to neurogenic bladder from radiation-bethanechol added by urology.
Hyponatremia-
Today serum sodium at 127.
Likely hypovolemic hyponatremia, suspect secondary to sensible volume losses from tracheostomy suction.
SIADH workup negative. Increase fluid intake and Jevity tube feeds to 45.
Emphysema on CT scan, pulmonary nodule of 6 mm
Copious amounts of tracheostomy secretions-
Likely a confluence of infection and decreased clearance from the tumor burden.
Currently patient on DuoNebs, suctioning, Cofflator since 02/07, and Mucinex at 400 4 times daily.
Appreciate pulmonology input. Pulmonology also recommends hospice.
Continue PT OT. Continue aspiration precautions.
GI prophylaxis-on lansoprazole
Chronic pain syndrome-
Due to malignancy, opioid dependence
Continue home medication regimen
Continue 135 morphine milliequivalents per day
Added Dilaudid for moderate and severe pain.
Cachexia-
Severe protein calorie malnutrition based on muscle mass and temporal wasting.
Decreased consumption of oral intake-greater than 20%
BMI at 18.0, currently on Jevity 1.53 times a day.
DVT prophylaxis-SCDs
CODE STATUS-limited DNR (no chest compressions)
Poor prognosis as determined by all specialists.
Anticipated Discharge: > 48 hours
Subjective/Interval History
-
Date of Service: February 22, 2025
Nba reports to be feeling tired and fatigued, has chills and has been having increased tracheal secretions with difficulty breathing. His fevers are new since yesterday. He was off of antibiotics since 02/15/2025.
Objective Data
-
Labs:
Laboratory Results
02/22/25
08:52
WBC 9.7
Hgb 9.8 L
Hct 30.2 L
Plt Count 405 H
Sodium 127 L
Potassium 3.6
Chloride 89 L
Carbon Dioxide 33 H
BUN 20
Creatinine 0.4 L
Glucose 139 H
Calcium 8.1 L
Vital Signs:
Vital Signs
Temp Pulse Resp BP Pulse Ox
102.1 F H 126 18 114/78 98
02/22/25 12:12 02/22/25 07:24 02/22/25 07:24 02/22/25 07:24 02/22/25 08:09
I&O
02/21/25 02/22/25 02/23/25
06:59 06:59 06:59
Intake Total 660 / 660 2160 / 2160
Balance 660 / 660 2160 / 2160
Review of Systems
-
History Source: Patient
Constitutional: Reports No Appetite and Fatigue
EENT: Reports No Symptoms Reported
Respiratory: Reports Cough and Trouble Breathing
Cardiac: Reports No Symptoms
Abdomen/GI: Reports No Symptoms
Genitourinary: Reports No Symptoms
Musculoskeletal: Reports No Symptoms
Neuro: Reports No Symptoms
Endocrine: Reports No Symptoms
Hematologic / Lymphatic: Reports No Symptoms
Allergy / Immunology: Reports No Symptoms
Physical Exam
-
General: Appears in Distress (mild distress on 8l high flow through tracheostomy tube)
HEENT: Normocephalic, Atraumatic and Moist Mucous Membranes
Respiratory: Wheezes (in b/l upper lobes, with coarse brath sounds), Rales (in b/l lower lobes) and Crackles (diminished breath sounds. ); Negative Rhonchi
Cardiac: Regular Rhythm and S1/S2; Negative Murmur, Rub or Gallop
GI: Soft, Nontender, Nondistended and Normal Bowel Sounds
Genito-urinary: No Costovertebral Tender
Musculoskeletal: No Clubbing, No Cyanosis, Edema, Right Lower Extrem (mild) and Edema, Left Lower Extrem (mild)
Neuro: AO x 3, No Motor Deficits and DTR's Intact & Symmetrica
Psych: Calm
Data Reviewed
-
Diagnostic Radiology: Image personally visualized and interpreted, Report Reviewed by me and Discussed with Physician
Labs: Labs Reviewed by me, Discussed with Physician and Discussed with Nurse
[2025-02-22 13:48] LABS: Osmolality Serum 266 mOsm/kg (275-300)
[2025-02-22 13:48] LABS: Osmolality Urine 597 mOsm/kg (300-900)
[2025-02-22 14:01] LABS: Urine Sodium 18 mmol/L (30-90)
[2025-02-22 15:00] VITALS: BP 126/81
--- NOTE | 2025-02-22 15:27 | PTCARENOTE ---
Aprox 1200 pt began with shivers. Rectal temp done, 102.1. Dr Tom and resident notified. Oral Tylenol given through peg tube. Urine and labs sent.
[2025-02-22] MEDS: ZYPREXA 10 MG TUBE (23:01)
[2025-02-22] MEDS: DESYREL 50 MG TUBE (23:01)
[2025-02-22 23:11] VITALS: BP 142/84
[2025-02-23] MEDS: ROXICODONE 20 MG TUBE ×6 (00:30→21:34)
[2025-02-23] MEDS: PREVACID 30 MG TUBE ×2 (00:52→09:00)
[2025-02-23] MEDS: ROBINUL 1 MG TUBE ×3 (01:07→16:28)
[2025-02-23] MEDS: STERILE WATER FOR INJECTION 10 ML IV ×3 (04:39→21:34)
[2025-02-23] MEDS: MAXIPIME 2000 MG IV ×3 (04:44→21:33)
[2025-02-23 06:23] LABS: Hematocrit 25.2 % (39.0-52.0); Hemoglobin 8.5 g/dL (13.0-18.0); Mean Corp Hgb Conc. 33.7 g/dL (33.0-37.0); Mean Corpuscular Hgb 30.6 pg (27.0-31.0); Mean Corpuscular Volume 90.6 fL (80.0-94.0); Platelet Count 343 10^3/uL (130-400); Red Blood Cell Count 2.78 10^6/uL (4.70-6.10); Red Cell Dist. Width 15.8 % (11.5-14.5); White Blood Cell Count 6.9 10^3/uL (4.8-10.8)
[2025-02-23 06:55] LABS: Blood Urea Nitrogen 25 mg/dl (9-20); Calcium 7.9 mg/dl (8.4-10.2); Carbon Dioxide 31 mmol/L (22-30); Chloride 91 mmol/L (98-107); Estimated Creatinine Clearance 91 ml/min; Glucose 140 mg/dl (70-99); Potassium 4.1 mmol/L (3.5-5.1); Sodium 127 mmol/L (135-145); eGFR > 60.00
[2025-02-23 07:01] VITALS: BP 131/73
[2025-02-23] MEDS: LIDOCAINE 4% PATCH TOPICAL (08:59)
[2025-02-23] MEDS: URECHOLINE 25 MG PO ×3 (09:00→21:35)
[2025-02-23] MEDS: DELTASONE 20 MG TUBE (09:00)
[2025-02-23] MEDS: ATIVAN 0.5 MG TUBE (09:00)
[2025-02-23 09:01] VITALS: BP 131/73
--- NOTE | 2025-02-23 09:42 | W.PN.HOSP.TC ---
Addendum entered and electronically signed by Ean Gautam MD 02/23/25 22:28:
Attending Addendum-
I saw and evaluated the patient. I reviewed the resident�s note and agree with findings and plan as documented in the resident�s note. Sub: Seen with present. Patient barely able to write due to fatigue. Seems weak. States he has increased
mucous. Full 12 point ROS reviewed and negative except as documented Exam: Vitals reviewed in chart GEN-NAD heart RRR HEENT trach in place Lungs wet rhonchi at bases abd PEG in place LE b/l +1 pitting edema salazar in place draining clear yellow
urine
Plan:
#Recurrent PNA
Chest x-ray showed evidence for left lower lobe pneumonia
cont cefepime # 2
sputum culture-GNB
blood cultures x 2-NGTD
overall extremely poor prognosis likely recurrent episodes
d/w ID and mutually agreed re prognosis and futility of care
#Ventilator associated pneumonia-resolved
#Acute blood loss anemia-
Resolved, secondary to massive hemoptysis from the tumor site, s/p 1 unit RBC
#SCC of the tongue base.
Oncology consulted, determined no longer candidate for chemotherapy.
Radiation oncology recommended palliative radiation therapy to temporize bleeding in case patient rebleeds.
02/19-ENT placed 8 cuffed Shiley with Passy-Marilee valve.
Repeat CBC in the a.m
#Acute toxic metabolic encephalopathy-
Multifactorial-likely a confluence of critical disease, infection, antibiotic.
Zyprexa 10 mg, restraints as needed. Recommended refraining from using restraints.
Ativan 0.5 mg as needed.
#Hematuria-
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 Hematuria resolved.
Continues to remain on bethanechol per urology.
Patient developed acute urinary retention-failed voiding trial, back on Salazar on 02/15/2025.
Suspected secondary to neurogenic bladder from radiation-bethanechol added by urology.
#Hyponatremia-
Today serum sodium at 127.
Likely hypovolemic hyponatremia, suspect secondary to sensible volume losses from tracheostomy suction.
SIADH workup negative. Increase fluid intake and Jevity tube feeds to 45. decrease h20 flushes
repeat BMP in am
#Emphysema on CT scan, pulmonary nodule of 6 mm
Copious amounts of tracheostomy secretions-
Likely a confluence of infection and decreased clearance from the tumor burden.
Currently patient on DuoNebs, suctioning, Cofflator since 02/07, and Mucinex at 400 4 times daily.
Appreciate pulmonology input. Pulmonology also recommends hospice.
Continue PT OT. Continue aspiration precautions.
#GI prophylaxis-on lansoprazole
#Chronic pain syndrome-
Due to malignancy, opioid dependence
Continue home medication regimen
Continue 135 morphine milliequivalents per day
Added Dilaudid for moderate and severe pain.
#Cachexia-
Severe protein calorie malnutrition based on muscle mass and temporal wasting.
Decreased consumption of oral intake-greater than 20%
BMI at 18.0, currently on Jevity 1.53 times a day.
#DVT prophylaxis-SCDs
#CODE STATUS-limited DNR (no chest compressions)
Poor prognosis as determined by all specialists.
Dispo - possible dc to [facility] when able
Time spent coordinating care, review of plan of care with resident, personally reviewed records in EMR, med rec, consults, notes, labs, radiology, d/w nursing ID and POA � 55 mins
Original Note:
Today's Communication/Plan
-
;/
Assessment / Plan
Assessment / Plan
Assessment/plan
#Left lower lobe pneumonia
-CXR 02/22- Large airspace consolidation in the basilar left lower lobe suggesting SEVERE LEFT LOWER LOBE PNEUMONIA
-Initiated on cefepime (D2)
-Blood cultures preliminary negative
-Sputum culture with gram-negative bacilli preliminary
-Infectious disease consulted, given new onset fever, temperature curve, possible aspiration
-Monitor WBC, follow temperature curve
#Hyponatremia
-Na 127 today, consistently low
-Urine osmo 597, urine any 18, serum osmo 266
-Given urine osmole, likely inappropriately concentrated due to impaired free water excretion vs high free water intake
-Will cut back water flushes from 35 mL/h to 15 mL/h
-Fluid restrict
-Monitor BMP
#Ventilator associated pneumonia-
-Now resolved
-S/p mechanical ventilation for airway protection after massive hemoptysis, caused fevers with green purulent sputum.
-Respiratory cultures consistent with MSSA and Pseudomonas aeruginosa from tracheostomy tube, started on vancomycin cefepime and Flagyl.
-Completed course of Keflex ciprofloxacin and metronidazole via PEG tube from 02/05 through 02/14-
-tracheostomy suctions.
-ENT input appreciated. changed his tracheostomy to 8 cuffed Shiley.
#Difficulty breathing secondary to 6 cuffed Shiley
-Resolved upon switching to 8 cuffed Shiley
#Massive hemoptysis-resolved.
#Acute blood loss anemia-
-Resolved, secondary to massive hemoptysis from the tumor site, s/p 1 unit RBC
#SCC of the tongue base.
-Oncology consulted, determined no longer candidate for chemotherapy.
-Radiation oncology recommended palliative radiation therapy to temporize bleeding in case patient rebleeds.
#Acute toxic metabolic encephalopathy-now resolved
-Ativan 0.5 mg as needed.
#Hematuria-
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 Hematuria resolved.
-Finally Salazar catheter removed on 02/19/2025. Patient passed voiding trial.
-Continues to remain on bethanechol per urology.
-Salazar catheter removed on 02/13-per urology recommendations.
-Patient developed acute urinary retention-failed voiding trial, back on Salazar on 02/15/2025.
-Suspected secondary to neurogenic bladder from radiation-bethanechol added by urology.
#Emphysema on CT scan, pulmonary nodule of 6 mm
#Cachexia-
-Severe protein calorie malnutrition based on muscle mass and temporal wasting.
-Decreased consumption of oral intake-greater than 20%
-BMI at 18.0, currently on Jevity 1.53 times a day.
DVT prophylaxis-SCDs
CODE STATUS-limited DNR (no chest compressions)
Overall poor prognosis
Anticipated Discharge: > 48 hours
Subjective/Interval History
-
Date of Service: February 23, 2025
Objective Data
-
Labs:
Laboratory Results
02/23/25
05:46
WBC 6.9
Hgb 8.5 L
Hct 25.2 L
Plt Count 343
Sodium 127 L
Potassium 4.1
Chloride 91 L
Carbon Dioxide 31 H
BUN 25 H
Creatinine 0.4 L
Glucose 140 H
Calcium 7.9 L
Vital Signs:
Vital Signs
Temp Pulse Resp BP Pulse Ox
99.9 F 104 20 131/73 93
02/23/25 09:01 02/23/25 09:01 02/23/25 09:01 02/23/25 09:01 02/23/25 09:01
I&O
02/22/25 02/23/25 02/24/25
06:59 06:59 06:59
Intake Total 2159 / 1079
Balance 2159 / 1079
Review of Systems
-
All other systems: Reviewed and negative (Except as documented)
Physical Exam
-
General: Appears in Distress
HEENT: Normocephalic and Atraumatic
Respiratory: Rales and Non Labored Respirations
Cardiac: Regular Rhythm and S1/S2
GI: Soft, Nontender, Nondistended and Normal Bowel Sounds
Musculoskeletal: No Edema
Neuro: Awake, Alert, Oriented and AO x 3
Psych: Anxious
[2025-02-23] MEDS: SENOKOT-S 1 TABLET TUBE (12:35)
[2025-02-23] MEDS: TYLENOL ORAL SOLUTION 650 MG TUBE ×2 (12:38→21:34)
[2025-02-23] MEDS: FLUSH (NSS) 2 FLUSH IV (12:46)
--- NOTE | 2025-02-23 13:02 | CM ---
CM following re: discharge planning.
Reviewed pt's chart, met with pt and spoke to pt's spouse over the phone to update on discharge plan progress.
PT and OT continue recommending SNF level of care.
Pt's spouse called and she stated that she was working with [facility] admission department, resolved the problem, paid outstanding balance and [facility] accepted the pt for admission.
CM spoke to [facility] sales and events coordinator and she confirmed that all obstacles have been resolved and they accepted the pt for admission when pt is medically stable.
CM called [facility] admissions liaison and cancelled a referral.
[facility]
Accepting Physician Dr. Tsai .
D/C plan: [facility]
CM will follow to assist pt with discharge to [facility]
[2025-02-23 15:00] VITALS: BP 135/83
--- NOTE | 2025-02-23 16:03 | PTCARENOTE ---
Upon head to toe assessment for this RN, pts stomach found to be round/distended/firm. Pt w/ c/o mild nausea and stomach pain, not requesting any medications at this time. Residual 70mL of parnell tube feeding mixed with gastric contents. No BM, PRN
senna given. MD made aware, no new orders at this time.
--- NOTE | 2025-02-23 16:13 | W.PN.ID1 ---
Date of Service
Date of Service: February 23, 2025
Today's Communication
fine to continue cefepime pending ID and cultures
patient deferring to to make medical decisions are this time
lawrence understands that a cure of cancer is not thought to be possible and it is likely that he will pass away of an infection - her main objections to hospice are 1) management of tube feeds and 2) she wants lucian to make the decision.
The situation is challenging and would encourage ongoing conversations with team and family
Assessment / Plan
HAP vs aspiration pneumonia;
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
Constipation
Hemoptysis- resolved
SCC of the oral cavity-s/p chemoradiation
- without curative options at this point
Reported allergy to penicillin - rash
- sputum culture with moderate GNR
- expect recurrent infections, eventual development of a resistant infection which is the most likely cause of his demise
- reasonable to continue
discussed at length with Lucian, I would respond verbally and he would write. Explained that the last time I saw him, he was requesting hospice when discussing with Dr Melchor. He responded that he doesn't recall what was said previously and that he's
depending on his Lawrence to help him make medical decisions and asks me to call her. He adds that he 'doesnt feel that badly today'
Called and spoke with Lawrence. She was already aware that recurrent infections and progressive acquisition of resistant bacteria are expected and likely to be the ultimate cause of his . She understands that curative chemotherapy is not
being offered and that radiation would be palliative. She works multimedia producer (an employee of the cardiology call center) and is not available to care for him during the day. Her hope has been that he might go to rehab, improve in strength to the
point that he can return home on palliative care (not hospice) and care for himself for several months prior to passing away. 'Im not God, I dont know what's going to happen to him, no one else can know the future either.' Her biggest concern with
palliative care at this time would be stopping tube feeds given that he is not able to swallow foods. She feels very certain that stopping tube feeds would be a requirement; I responded that I am not certain about that and I believe it would be up
to the attending MD managing his hospice and might be considered in some circumstances, I will review with the medical team. Note that Lawrence tells me 'its his life, he's got to make the decision Im just following his wishes, I understand it may
not be what everyone else thinks, but Im just doing my best.' Also note that if he returns to [facility] as currently planned, then believes there is no current hospice bed available.
His adult daughter is getting this weekend and family are tentatively planning to visit him at the facility or hospital during that time.
Also note that 02/10 ethics consult was cancelled because patient reportedly started deferring to his to make medical decisions at that time.
Chief Complaint
-: UTI and Other (tracheitis)
Subjective / Review of Systems
Patient reassessed at hospitalist request
Has been having fevers since 02/21 as high as 102
Increased secretions and productive cough
sputum with moderate GNR
CXR with dense consolidation.
Remains on a 1:1 because he has pulled out his tracheostomy x4.
discussed at length with Lucian, I would respond verbally and he would write. Explained that the last time I saw him, he was requesting hospice when discussing with Dr Melchor. He responded that he doesn't recall what was said previously and that he's
depending on his Lawrence to help him make medical decisions and asks me to call her.
Called and spoke with Lawrence. She was already aware that recurrent infections and progressive acquisition of resistant bacteria are expected and likely to be the ultimate cause of his . She understands that curative chemotherapy is not
being offered and that radiation would be palliative. She works multimedia producer (an employee of the cardiology call center and is not available to care for him during the day. Her hope has been that he might go to rehab, improve in strength to the
point that he can return home on palliative care (not hospice) and care for himself for several months. Her biggest concern with palliative care at this time would be stopping tube feeds given that he is not able to swallow foods. She feels very
certain from her discussion with our hospice liason that stopping tube feeds would be a requirement; I responded that I am not certain about that and I believe it would be up to the attending MD managing his hospice and might be considered in some
circumstances. Note that Lawrence tells me 'its his life, he's got to make the decision Im just following his wishes, I understand it may not be what everyone else thinks, but Im just doing my best.'
Vital Signs / Physical Exam
Vital Signs
Vital Signs
Temp Pulse Resp BP Pulse Ox
100.6 F H 111 21 135/83 93
02/23/25 15:00 02/23/25 15:00 02/23/25 15:00 02/23/25 15:00 02/23/25 15:00
Physical Exam
Constitutional: Chronically Ill and Non-toxic
Cardiovascular: Regular Rate and S1/S2; Negative Murmur or Rub
Pulmonary: Clear, Symmetric, Coarse, Non Labored and Other (requiring frequent suctioning); Negative Wheezes or Rales
Gastrointestinal: Soft, Non Tender, Non Distended and Normal Bowel Sounds
Skin: Warm and Dry; Negative Rash or Jaundice
Neurological: Awake and Alert
Objective Data
Lab Data
Lab Results
02/23/25 05:46
02/23/25 05:46
PT 15.3 Sec (11.4-14.6) H 01/29/25 16:44
INR 1.16 01/29/25 16:44
APTT 25.4 Sec (23.4-35.0) 01/29/25 16:44
Estimated Creat Clear 91 ml/min 02/23/25 05:46
Total Bilirubin 0.4 mg/dl (0.2-1.3) 05/19/25 03:33
AST 17 U/L (17-59) 02/09/25 03:33
ALT 18 U/L (0-50) 02/09/25 03:33
Alkaline Phosphatase 94 U/L (38-126) 02/09/25 03:33
Most recent labs reviewed.
Micro Results:
02/22/25 11:02 Respiratory Culture - Preliminary
Endotracheal Gram negative bacilli
Gram Stain - Preliminary
02/22/25 09:34 Blood Culture - Preliminary
Blood/Venous No Growth in 24 hours- Final report to follow
02/22/25 08:52 Blood Culture - Preliminary
Blood/Venous No Growth in 24 hours- Final report to follow
02/17/25 05:59 C. difficile GDH Antigen & Toxins - Final
Feces/Stool Negative for toxigenic C.difficile
02/11/25 16:54 Urine Culture - Final
Urine NO GROWTH
02/01/25 13:10 Respiratory Culture - Final
Tracheal Aspirate Pseudomonas aeruginosa
S aureus-Methicillin Sensitive
Gram Stain - Final
02/01/25 18:43 Blood Culture - Final
Blood/Venous No Growth - Final Report
02/01/25 13:21 Blood Culture - Final
Blood/Venous No Growth - Final Report
02/01/25 09:58 Urine Culture - Final
Urine Enterococcus faecalis
Aerococcus Species
02/01/25 13:23 Influenza Types A & B (ROMMEL) - Final
Nasal Swab Negative for Influenza A & B, NAAT
Negative results must be combined with clinical observations
and patient history.
Nucleic Acid Amplification test (NAAT)performed on the
[employer] platform.
Care Review
Plan reviewed with: Physician (Dr Gautam and Dr Beaver - hospice, antibiotics; [facility]
[2025-02-23] MEDS: DESYREL 50 MG TUBE (21:35)
[2025-02-23] MEDS: ZYPREXA 10 MG TUBE (21:35)
[2025-02-23 21:47] VITALS: BP 140/93
[2025-02-24] MEDS: ROBITUSSIN 200 MG TUBE (00:54)
[2025-02-24] MEDS: ROBINUL 1 MG TUBE (00:54)
[2025-02-24] MEDS: ROXICODONE 20 MG TUBE (00:55)
[2025-02-24] MEDS: ATIVAN 0.5 MG IV ×3 (00:55→21:01)
[2025-02-24 01:54] VITALS: BP 138/90
[2025-02-24 02:01] LABS: Glucose - Point of Care 143 mg/dl (70-99)
--- NOTE | 2025-02-24 02:09 | W.PN.UPDATE ---
Update Note
Progress Note Update
TT received from RN, concerned that patient isn't writing full sentences as he had been writing earlier. Pt received scheduled pain medication and PRN dose of Ativan earlier. NIH score 0. Note stated that patient was barely able to write earlier in
the day due to fatigue. Patient appears tired at this time. Bld glucose 143, VSS temp 98.6, BP 138/90, Pulse 105-110, Resp 20, 98% on 21% trach collar.
[2025-02-24 03:11] VITALS: BP 143/96
[2025-02-24 03:28] LABS: Hematocrit 28.9 % (39.0-52.0); Hemoglobin 9.7 g/dL (13.0-18.0); Mean Corp Hgb Conc. 33.6 g/dL (33.0-37.0); Mean Corpuscular Hgb 30.3 pg (27.0-31.0); Mean Corpuscular Volume 90.3 fL (80.0-94.0); Platelet Count 359 10^3/uL (130-400); Red Cell Dist. Width 15.8 % (11.5-14.5); White Blood Cell Count 7.7 10^3/uL (4.8-10.8)
[2025-02-24 03:32] LABS: Venous Blood Gas B.E. 8.4 mmol/L (-4 to +4); Venous Blood Gas HCO3 32.8 mmol/L (22-27); Venous Blood Gas pCO2 44 mmHg (35-48); Venous Blood Gas pH 7.48 (7.32-7.43); Venous Blood Gas pO2 76 mmHg (30-50)
[2025-02-24 03:34] LABS: Venous Blood Gas O2 Therapy 40% 5L
--- NOTE | 2025-02-24 03:39 | RR ---
A Rapid Response was called on this patient, please see Rapid Response form.
prior to call. Pt developed agitation. spO2 was checks and found to be 86%spO2 on 28%fiO2 Trach collar. O2 was increased to 40%fiO2 with an increase in spO2 to 94%. Assessment showed R sided breath sounds as absent. RR was called. Please see RR form
for remaining interventions.
[2025-02-24 03:42] LABS: Blood Urea Nitrogen 27 mg/dl (9-20); Calcium 8.1 mg/dl (8.4-10.2); Carbon Dioxide 30 mmol/L (22-30); Chloride 92 mmol/L (98-107); Estimated Creatinine Clearance 91 ml/min; Glucose 184 mg/dl (70-99); Magnesium 1.8 mg/dl (1.6-2.3); Potassium 3.8 mmol/L (3.5-5.1); Sodium 129 mmol/L (135-145); eGFR > 60.00
--- NOTE | 2025-02-24 03:42 | PTCARENOTE ---
Late note due to pt care:
0150: RN was notified that pt was attempting to communicate but was using odd symbols and illegible words. assessment coordinator that pt had a change in handwriting and was not writing appropriate words in the context of the conversation (using words like
'trees' & '$$'). NIH was completed (0). Pt was assessed by overnight provider. no additional interventions at this time.
[2025-02-24 03:44] LABS: % Basophils 0.8 % (0-2); % Eosinophils 2.2 % (0-6); % Immature Granulocytes 0.8 % (0-0.5); % Lymphocytes 3.7 % (20.5-51.1); % Monocytes 7.4 % (1.7-9.3); % Neutrophils 85.1 % (42.2-75.2); Absolute Basophils 0.1 10^3/uL (0-0.2); Absolute Eosinophils 0.2 10^3/uL (0-0.7); Absolute Immature Granulocytes 0.1 10^3/uL (0-0.05); Absolute Lymphocytes 0.3 10^3/uL (1.2-3.4); Absolute Monocytes 0.6 10^3/uL (0.1-0.6); Absolute Neutrophils 6.5 10^3/uL (1.4-6.5); Nucleated Red Blood Cells % 0 % (-)
[2025-02-24] MEDS: DUONEB 3 ML INH (04:30)
--- NOTE | 2025-02-24 04:44 | W.PN.UPDATE ---
Update Note
Progress Note Update
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 was on room air but now needed 40% fio2 for pulse of 88-89% Does not appear to be in distress. Cxr ordered. Noted right diaphram more elevated than previously
Noted abd being distended. Pt did 'feel full'. TF shut off. Decided to send pt for Ct of chest (hypoxia), Chest Abd, and CT head (nurse noted some confusion).
Later received phone call from network security consultant radiology who reported pt has diffuse pneumoperitoneum with prob bowel perforation and bowel ischemia. Called Alena who was already at pt bedside.
Results of abd ct scan given to pt and . Explained that diire situation to the best of my ability and that a decision needs to be made urgently whether or not he would want surgery. Both seem undecided at that time so ultimately Gen surgeon,
cynthia was called and case discussed with him. He will further review case and be coming to hospital.
[2025-02-24] MEDS: MAXIPIME 2000 MG IV ×2 (05:35→11:49)
[2025-02-24] MEDS: ROXICODONE TUBE (05:35)
[2025-02-24] MEDS: STERILE WATER FOR INJECTION 10 ML IV ×2 (05:35→11:49)
[2025-02-24 06:27] LABS: Lactic Acid 2.5 mmol/L (0.7-2.0)
[2025-02-24] MEDS: LR 1000 IV ×2 (06:35→16:12)
--- NOTE | 2025-02-24 07:13 | W.PN.HOSP.TC ---
Addendum entered and electronically signed by Ean Gautam MD 02/24/25 22:07:
Attending Addendum-
I saw and evaluated the patient. I reviewed the resident�s note and agree with findings and plan as documented in the resident�s note. Sub: patient found to have bowel perf with free air overnight. Seen with daughter and multiple family members
present. Patient appears uncomfortable. doing all of the talking. continued fevers and now abd pain. Full 12 point ROS attempted and reviewed and negative except as documented limited due to inability to talk Exam: Vitals reviewed in chart
GEN-NAD heart RRR HEENT trach in place Lungs wet rhonchi at bases abd PEG in place distended absent bs LE b/l +1 pitting edema salazar in place draining clear yellow urine
Plan:
# Bowel Perforation
-02/24- CT A/P- personally reviewed- Moderate free air an mild free fluid in the abdomen and pelvis suggesting ruptured viscus probably bowel. Associated small bowel pneumatosis and mild small bowel dilatation.
Moderate left lower lobe findings suggesting pneumonia.
- extremely poor prognosis
- surgery input appreciated-futile
- would like to attempt abx x 24 hours - clearly explained futility of care- POA expresses understanding but would like 'to try'
- d/w ID start levaquin and metro for now
- start pain control with morphine gtt- agreeable
- transition to hospice is imperative to patient comfort and dignity, d/w hospice- family to decide in am
- will reconsult ethics if decision is delayed past 02/25
#Recurrent PNA
- Chest x-ray showed evidence for left lower lobe pneumonia
- DC cefepime -> Levaquin (I to pseudomonas)
- sputum culture-GNB psudomonas and MRSA
- blood cultures x 2-NGTD
- overall extremely poor prognosis likely recurrent episodes
- d/w ID and mutually agreed re prognosis and futility of care
#Ventilator associated pneumonia-resolved
#Acute blood loss anemia-
Resolved, secondary to massive hemoptysis from the tumor site, s/p 1 unit RBC
#SCC of the tongue base.
Oncology consulted, determined no longer candidate for chemotherapy.
Radiation oncology recommended palliative radiation therapy to temporize bleeding in case patient rebleeds.
02/19-ENT placed 8 cuffed Shiley with [place] valve.
poor prognosis hospice appropriate
#Acute toxic metabolic encephalopathy-
Multifactorial-likely a confluence of critical disease, infection
Zyprexa 10 mg, restraints as needed. Recommended refraining from using restraints.
Ativan 0.5 mg as needed.
#Hematuria-
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 Hematuria resolved.
Continues to remain on bethanechol per urology.
Patient developed acute urinary retention-failed voiding trial, back on Salazar on 02/15/2025.
Suspected secondary to neurogenic bladder from radiation-bethanechol added by urology.
#Hyponatremia-
sodium at 129.
Likely hypovolemic hyponatremia, suspect secondary to sensible volume losses from tracheostomy suction.
SIADH workup negative. Increase fluid intake and Jevity tube feeds to 45. decrease h20 flushes
repeat BMP in am
#Emphysema on CT scan, pulmonary nodule of 6 mm
Copious amounts of tracheostomy secretions-
Likely a confluence of infection and decreased clearance from the tumor burden.
Currently patient on DuoNebs, suctioning, Cofflator since 02/07, and Mucinex at 400 4 times daily.
Appreciate pulmonology input. Pulmonology also recommends hospice.
Continue PT OT. Continue aspiration precautions.
#GI prophylaxis-on lansoprazole
#Chronic pain syndrome-
Due to malignancy, opioid dependence
Continue home medication regimen
Continue 135 morphine milliequivalents per day
transition to morphine gtt
#Cachexia-
Severe protein calorie malnutrition based on muscle mass and temporal wasting.
Decreased consumption of oral intake-greater than 20%
BMI at 18.0, currently on Jevity 1.53 times a day.
#DVT prophylaxis-SCDs
#CODE STATUS-limited DNR (no chest compressions)->DNR
Poor prognosis as determined by all specialists.
Dispo - inpatient hospice appropriate
ACP
Patient consented to discuss by brenton, was with POA daughter and family, time spent explanation of advance directives, changes in health status, patient�s health care wishes if the patient becomes unable to make health decisions, goals of care,
code status, and prognosis change to DNR from limited, POA still unrealistic but appears to be more accepting of extremely poor prognosis- 18 minutes
Time spent coordinating care, review of plan of care with resident, personally reviewed previous records in EMR, med rec, labs, radiology, d/w nursing, family ID surgery hospice total time documented is exclusive of any additional time listed that
was spent in advance care planning discussion - 55�minutes
Original Note:
Today's Communication/Plan
-
;/
Assessment / Plan
Assessment / Plan
Assessment/plan
#Bowel perforation
-Stat CT chest abdomen pelvis 02/24- Moderate free air an mild free fluid in the abdomen and pelvis suggesting ruptured viscus probably bowel. Associated small bowel pneumatosis and mild small bowel dilatation. Moderate left lower lobe findings
suggesting pneumonia. Nodular appearance superiorly. Repeat exam in approximately 2 weeks following treatment is recommended to confirm improvement or resolution. Stable from prior chest x-ray 02/22/2025.
Simple left renal cysts. Bilateral too small to characterize hypodense renal lesions likely benign cysts. Stable mid thoracic spine compression fracture. Stable sternal fracture. Mild emphysematous disease. Stable
-After discussion with surgery, patient and family decided to opt with medical management only given other ongoing medical
-In the meantime, will start on metronidazole and PPI
-Goals of care discussion
#Left lower lobe pneumonia
-CXR 02/22- Large airspace consolidation in the basilar left lower lobe suggesting SEVERE LEFT LOWER LOBE PNEUMONIA
-Initiated on cefepime (D3)
-Blood cultures preliminary negative
-Sputum culture with Pseudomonas, MRSA
-Infectious disease input appreciated
#Hyponatremia
-Na 129 today,
-Urine osmo 597, urine any 18, serum osmo 266
-Given urine osmole, likely inappropriately concentrated due to impaired free water excretion vs high free water intake
-cut back water flushes from 35 mL/h to 15 mL/h yesterday
-Fluid restrict
-
#Ventilator associated pneumonia-
-Now resolved
-S/p mechanical ventilation for airway protection after massive hemoptysis, caused fevers with green purulent sputum.
-Respiratory cultures consistent with MSSA and Pseudomonas aeruginosa from tracheostomy tube, started on vancomycin cefepime and Flagyl.
-Completed course of Keflex ciprofloxacin and metronidazole via PEG tube from 02/05 through 02/14-
-tracheostomy suctions.
-ENT input appreciated. changed his tracheostomy to 8 cuffed Shiley.
#Difficulty breathing secondary to 6 cuffed Shiley
-Resolved upon switching to 8 cuffed Shiley
#Massive hemoptysis-resolved.
#Acute blood loss anemia-
-Resolved, secondary to massive hemoptysis from the tumor site, s/p 1 unit RBC
#SCC of the tongue base.
-Oncology consulted, determined no longer candidate for chemotherapy.
-Radiation oncology recommended palliative radiation therapy to temporize bleeding in case patient rebleeds.
#Acute toxic metabolic encephalopathy-now resolved
-Ativan 0.5 mg as needed.
#Hematuria-
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 Hematuria resolved.
-Finally Salazar catheter removed on 02/19/2025. Patient passed voiding trial.
-Continues to remain on bethanechol per urology.
-Salazar catheter removed on 02/13-per urology recommendations.
-Patient developed acute urinary retention-failed voiding trial, back on Salazar on 02/15/2025.
-Suspected secondary to neurogenic bladder from radiation-bethanechol added by urology.
#Emphysema on CT scan, pulmonary nodule of 6 mm
#Cachexia-
-Severe protein calorie malnutrition based on muscle mass and temporal wasting.
-Decreased consumption of oral intake-greater than 20%
-BMI at 18.0, currently on Jevity 1.53 times a day.
DVT prophylaxis-SCDs
CODE STATUS- DNR
Overall poor prognosis
Extensive discussion held today with patient and family ( and daughter) at bedside. We reviewed the patient's ongoing bowel perforation and overall prognosis. After thoughtful conversation, patient and family have decided to proceed with
comfort care measures. Although at this time they are not interested in enrolling in hospice services. CODE STATUS was also addressed during the discussion. While the initially preferred to continue with limited DNR (no chest compressions),
after further discussion with the patient, the family reached a consensus to proceed with full DNR
Anticipated Discharge: 24 - 48 hours
Subjective/Interval History
-
Overnight events; patient with increased abdominal distention and pain. O2 sat dropped to 88%. He was evaluated with a chest x-ray and abdominal CT scan.
Objective Data
-
Labs:
Laboratory Results
02/24/25
03:16
WBC 7.7
Hgb 9.7 L
Hct 28.9 L
Plt Count 359
Sodium 129 L
Potassium 3.8
Chloride 92 L
Carbon Dioxide 30
BUN 27 H
Creatinine 0.4 L
Glucose 184 H
Calcium 8.1 L
Vital Signs:
Vital Signs
Temp Pulse Resp BP Pulse Ox
98.6 F 112 24 143/96 93
02/24/25 01:54 02/24/25 04:14 02/24/25 04:14 02/24/25 03:11 02/24/25 04:14
I&O
02/23/25 02/24/25 02/25/25
06:59 06:59 06:59
Intake Total 1080 / 1080 0 / 0
Output Total 1725 / 1725
Balance 1080 / 1080 -1725 / -1725
Review of Systems
-
All other systems: Reviewed and negative (Except as documented)
Physical Exam
-
General: Appears Chronically Ill
Respiratory: Rales and Crackles
Cardiac: S1/S2 and Irregular Rhythm
GI: Soft, Tender and Distended
Musculoskeletal: No Edema
Psych: Anxious
--- NOTE | 2025-02-24 07:16 | CON.GS ---
Medical History
-
Chief Complaint: Abdominal distension and pain
History of Present Illness:
Patient is a 69 yo M with a PMH of HTN, HLD, CAD, diverticulitis, prostate cancer s/p XRT, and SCC of the base of the tongue s/p trach/PEG and s/p chemo plus XRT with unfortunate recurrent disease who was admitted to on 01/29/2025 for issues with
his hemoptysis related to his tracheostomy. His and daughter present at bedside to assist with history. Over the past 24 hours he was found to have worsening abdominal distention prompting a CT scan overnight which demonstrated large volume
pneumoperitoneum and pneumatosis of the small bowel. Per reports from the family and treatment team he has not had any abdominal pain or distention during the course of his prior hospitalization. No nausea or emesis. He has been tolerating tube
feeds via a G-tube that was placed back in May 2024. He has been moving his bowels without any issues. No current anticoagulation. No NSAID use. He was previously on Prednisone oral 20 mg. No PPI. He has had intermittent fevers beginning
on 02/20, which have been believed to be related to a pneumonia. He is currently on Cefepime. He has had intermittent issues with tachycardia, no clear episodes of hypotension or pressor requirements.
Of note, regarding his head neck cancer he was initially stage III T3 N0 M0 p16 high risk HPV negative. He was treated with CDDP weekly chemotherapy and XRT and unfortunately was found to have recurrent disease. He declined extensive debilitating
surgery in favor of systemic therapy. He was scheduled for 1st cycle of Pembro, Carbo, Taxol 01/29 with Pegfilgrastim on 01/30, however, was admitted with hemoptysis as noted above. During the course of his hospitalization he has had extensive
discussions with his family, oncology, and primary medical team regarding goals of care. There have been extensive discussions regarding hospice as well as ethics meetings as relates to these decisions.
Past Medical History
Past Medical History: CAD, Cancer (Prostate and SCC of the tongue), HTN, Hypercholesterolemia and Other (Diverticulitis)
Past Surgical History: Orthopedic (Hip fracture) and Other (Tracheostomy and PEG in 05/2024 at [facility])
Social History
Tobacco: Former Smoker
Alcohol: Former
Drug: None
Personal:
Living: With Family
Family History
Family History: Reviewed & Not Pertinent
Allergies / Home Medications
Allergy/AdvReac Type Severity Reaction Status Date / Time
bee venom protein (honey bee) Allergy Severe Anaphylaxis Verified 01/29/25 09:54
Penicillins Allergy Rash Verified 02/09/25 10:43
�Medication �Instructions �Recorded �Confirmed �Type
cyanocobalamin (vitamin B-12) 1,000 mcg feeding tube DAILY 05/26/24 01/29/25 History
1,000 mcg tablet Supplement
glycopyrrolate 1 mg/5 mL (0.2 1 mg feeding tube Q6HPRN PRN 07/25/24 01/29/25 History
mg/mL) oral solution secretions
scopolamine base 1 mg over 3 days 1 patch transdermal Q3D SECRETIONS 08/15/24 01/29/25 History
transdermal patch
acetaminophen 650 mg/20.3 mL oral 650 mg (20.3 mL) feeding tube 10/11/24 01/29/25 Rx
solution Q4HPRN PRN mild pain/ fever >
100.5 #500 mL
guaifenesin 100 mg/5 mL oral liquid 200 mg (10 mL) feeding tube Q6HPRN 10/11/24 01/29/25 Rx
PRN cough/congestion #120 mL
lansoprazole 30 mg delayed 30 mg feeding tube DAILY #30 tabs 10/11/24 01/29/25 Rx
release,disintegrating tablet
(Prevacid SoluTab)
lidocaine 4 % topical patch 1 patch topical DAILY left back 10/11/24 01/29/25 Rx
pain #30 ea
lorazepam 2 mg/mL oral concentrate 1 mg (0.5 mL) feeding tube TID PRN 10/11/24 01/29/25 Rx
agitation #30 mL
prednisone 10 mg tablet 60 mg PO DIRECTED Cancer 01/27/25 01/29/25 History
lorazepam 2 mg/mL oral concentrate 1 mg feeding tube DAILY Mental 01/29/25 01/29/25 History
Health/Anxiety
oxycodone 10 mg tablet 15 mg feeding tube Q4H Pain 01/29/25 01/29/25 History
polyethylene glycol 3350 17 gram 17 g feeding tube DAILYPRN PRN 01/29/25 01/29/25 History
oral powder packet constipation
trazodone 50 mg tablet 50 mg feeding tube HSPRN PRN sleep 01/29/25 01/29/25 History
Review of Systems
-
A 10 point review of systems was completed, and was negative except as per HPI.
Physical Exam
Vital Signs
Temp Pulse Resp BP Pulse Ox
98.6 F 112 24 143/96 93
02/24/25 01:54 02/24/25 04:14 02/24/25 04:14 02/24/25 03:11 02/24/25 04:14
Body Mass Index (BMI) 17.6
Lab Results
02/24/25 03:16
02/24/25 03:16
WBC 7.7 10^3/uL (4.8-10.8) 02/24/25 03:16
Hgb 9.7 g/dL (13.0-18.0) L 02/24/25 03:16
Hct 28.9 % (39.0-52.0) L 02/24/25 03:16
Plt Count 359 10^3/uL (130-400) 02/24/25 03:16
Abs Immat Gran (auto) 0.1 10^3/uL (0-0.05) H 02/24/25 03:16
Neutrophils % 85.1 % (42.2-75.2) H 02/24/25 03:16
Physical Exam
General: No Apparent Distress and Other (Malnourished, weak)
Respiratory: Rhonchi and Accessory Resp Muscle Use
Cardiac: Irregular Rhythm
GI: Soft, Tender (Diffuse), Distended (Tympanitic) and Other (Peritoneal)
Musculoskeletal: No Edema
Skin: Warm and Dry
Neuro: Nonfocal/Grossly Intact
Data Reviewed
-
Radiology: Image Personally Visualized and interpreted
CT Scan: Image Personally Visualized and interpreted
Labs: Labs Reviewed by me
Assessment / Plan
-
Patient is a 69 yo M with advanced SCC of the base of the tongue (limited treatment options with tentative plan for hospice versus palliative chemo XRT)
Over the past 24 hours he has been found to have increased abdominal distention and pain. A CT scan of the abdomen and pelvis demonstrates large volume pneumoperitoneum as well as pneumatosis of the small bowel. Difficult to say exactly where his
area of perforation is anatomically; differential includes gastric or duodenal ulcer, ischemia and perforation of the small bowel (likely related to underlying atherosclerotic disease with potential embolic phenomena), or perforated diverticular
disease. Options for management reviewed. Situation is very unlikely to resolve with medical management alone. Surgical treatment would involve exploratory laparotomy, possible bowel resection, possible ostomy, possible open abdomen with need for
repeated surgical or procedural interventions. The pros and cons, risks and benefits were discussed. 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
medical issues.
Patient and family are clear that they would not like to proceed with surgical management. They would like to move forward with comfort measures only. All questions answered.
-- No plans for surgical intervention based on patients goals of care
-- Consider adding Flagyl and PPI as part of his [employer] regimen in the off chance that these help
-- Further care and treatment per primary
-- Call with questions or concerns
[2025-02-24 07:20] VITALS: BP 137/97
[2025-02-24] MEDS: LIDOCAINE 4% PATCH TOPICAL (07:50)
--- NOTE | 2025-02-24 08:55 | W.PN.UPDATE ---
Update Note
Progress Note Update
Events of the past 24hr reviewed, including suspected bowel perforation and plans for comfort care, which is most appropriate.
Oncology will sign off. Please call with any questions.
[2025-02-24] MEDS: FLAGYL 500 MG 100 IV ×2 (09:48→17:26)
[2025-02-24] MEDS: PROTONIX IV 40 MG IV (09:48)
[2025-02-24] MEDS: NSS (PRESERVATIVE FREE) 10 ML IV (09:49)
--- NOTE | 2025-02-24 11:24 | W.PN.ID1 ---
Addendum entered and electronically signed by Yelena Torrez MD 02/24/25 17:32:
Discussed with Dr Dodd and ANDREW Tobin, family desires ongoing antibiotics at this time, patient is strict NPO, deescalate to levofloxacin IV and metronidazole 500 mg IV q12
Addendum entered and electronically signed by Yelena Torrez MD 02/24/25 17:17:
Notified by patients ANDREW Tobin that Nba is now comfort care; I recommend stopping antibiotics, they are futile and will lead to further resistance (as we are already seeing from his tracheal tree with the development of MRSA (previously MSSA).
Alternatively could transition to levofloxacin 750 mg per tube Qday and metronidazole 500 mg per tube BID x 5 further days.
ID service will no longer actively follow this patient please recall for further questions.
Original Note:
Date of Service
Date of Service: February 24, 2025
Today's Communication
agree that medical management is futile and only delaying the inevitable; expect development of resistant organisms which we are already seeing from his tracheal tree
- even with aggressive surgical management, which I do not recommend, he has terminal cancer without options for further curative therapy
- very unlikely in my opinion that patient will be able to participate or benefit significantly from rehab
- currently on cefepime and metronidazole, if patient improves we can plan a finite course of antibiotics, however progression and relapse are inevitable and expected
Assessment / Plan
Spontaneous Bowel Perforation
- agree that medical management is futile and only delaying the inevitable; expect development of resistant organisms which we are already seeing from his tracheal tree
- even with aggressive surgical management, which I do not recommend, he has terminal cancer without options for further curative therapy
- very unlikely in my opinion that patient will be able to participate or benefit significantly from rehab
- currently on cefepime and metronidazole, if patient improves we can plan a finite course of antibiotics, however progression and relapse are inevitable and expected
HAP vs aspiration pneumonia;
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
Tracheal colonization with Pseudomonas and MRSA
Hemoptysis- resolved
SCC of the oral cavity-s/p chemoradiation
- without curative options at this point
Reported allergy to penicillin - rash
- sputum culture now with MRSA, persistent Pseudomonas and a second GNR
- expect recurrent infections, eventual development of a resistant infection which is the most likely cause of his demise
- add vancomycin, continue cefepime
Medical management of bowel perforation is likely futile
Chief Complaint
-: UTI and Other (tracheitis)
Subjective / Review of Systems
fevers ongoing
bp remains stable
abdomen firm and patient confused overnight
CT showed bowel perforation
patient was initially planned for hospice today, then I am told family reverted this decision later this AM in favor of medical management x24 hours
patient is pain medications, in that context reporting abdominal pain is controlled
Vital Signs / Physical Exam
Vital Signs
Vital Signs
Temp Pulse Resp BP Pulse Ox
99.2 F 111 20 137/97 90
02/24/25 07:20 02/24/25 07:20 02/24/25 07:20 02/24/25 07:20 02/24/25 10:24
Physical Exam
Constitutional: No Acute Distress
Cardiovascular: Regular Rate and S1/S2; Negative Murmur or Rub
Pulmonary: Clear and Symmetric; Negative Wheezes or Rales
Gastrointestinal: Soft, Tender, Distended and Normal Bowel Sounds
Skin: Warm and Dry; Negative Rash or Jaundice
Neurological: Awake
Objective Data
Lab Data
Lab Results
02/24/25 03:16
02/24/25 03:16
PT 15.3 Sec (11.4-14.6) H 01/29/25 16:44
INR 1.16 01/29/25 16:44
APTT 25.4 Sec (23.4-35.0) 01/29/25 16:44
Estimated Creat Clear 91 ml/min 02/24/25 03:16
Lactic Acid 2.5 mmol/L (0.7-2.0) H 02/24/25 05:44
Total Bilirubin 0.4 mg/dl (0.2-1.3) 02/09/25 03:33
AST 17 U/L (17-59) 02/09/25 03:33
ALT 18 U/L (0-50) 02/09/25 03:33
Alkaline Phosphatase 94 U/L (38-126) 02/09/25 03:33
Most recent labs reviewed.
Micro Results:
02/22/25 09:34 Blood Culture - Preliminary
Blood/Venous No Growth in 48 hours- Final report to follow
02/22/25 11:02 Respiratory Culture - Preliminary
Endotracheal Pseudomonas aeruginosa
Gram negative bacilli
Staph aureus MRSA
Gram Stain - Preliminary
02/22/25 08:52 Blood Culture - Preliminary
Blood/Venous No Growth in 48 hours- Final report to follow
02/17/25 05:59 C. difficile GDH Antigen & Toxins - Final
Feces/Stool Negative for toxigenic C.difficile
02/11/25 16:54 Urine Culture - Final
Urine NO GROWTH
02/01/25 13:10 Respiratory Culture - Final
Tracheal Aspirate Pseudomonas aeruginosa
S aureus-Methicillin Sensitive
Gram Stain - Final
02/01/25 18:43 Blood Culture - Final
Blood/Venous No Growth - Final Report
02/01/25 13:21 Blood Culture - Final
Blood/Venous No Growth - Final Report
02/01/25 09:58 Urine Culture - Final
Urine Enterococcus faecalis
Aerococcus Species
02/01/25 13:23 Influenza Types A & B (ROMMEL) - Final
Nasal Swab Negative for Influenza A & B, NAAT
Negative results must be combined with clinical observations
and patient history.
Nucleic Acid Amplification test (NAAT)performed on the
[email or web address] ID NOW platform.
Care Review
Plan reviewed with: Physician (Dr Dodd - goals of care, antibiotics)
--- NOTE | 2025-02-24 12:17 | HOSPNOTE ---
Attending met with family and the patient will be placed on comfort measures. We will continue to follow and support. The patient will most likely within 48 hours.
[2025-02-24] MEDS: TRANSDERM-SCOP 1 PATCH TRANSDERM (13:54)
[2025-02-24] MEDS: MORPHINE SULFATE 1 MG IV ×4 (16:10→20:38)
[2025-02-24] MEDS: LEVAQUIN 150 IV (18:16)
[2025-02-24] MEDS: ROBINUL 0.2 MG IV (18:43)
[2025-02-24 19:41] VITALS: BP 122/90
[2025-02-24] MEDS: NSS (PRESERVATIVE FREE) 0.25 ML IV (21:02)
[2025-02-25] MEDS: MORPHINE SULFATE 1 MG IV ×4 (01:56→10:03)
[2025-02-25] MEDS: ATIVAN 0.5 MG IV ×2 (01:56→16:50)
[2025-02-25] MEDS: NSS (PRESERVATIVE FREE) 0.125 ML IV (01:56)
[2025-02-25] MEDS: ROBINUL 0.2 MG IV ×5 (01:57→22:01)
[2025-02-25] MEDS: LR 1000 IV (04:12)
[2025-02-25] MEDS: FLAGYL 500 MG 100 IV (05:38)
[2025-02-25 07:05] VITALS: BP 142/92
--- NOTE | 2025-02-25 07:11 | W.PN.HOSP.TC ---
Addendum entered and electronically signed by Ean Gautam MD 02/25/25 20:55:
Attending Addendum-
I saw and evaluated the patient. I reviewed the resident�s note and agree with findings and plan as documented in the resident�s note. Sub: patient appears uncomfortable. Seen with and daughter present. Patient writhing pain. doing all of
the talking. continued fevers and worsening abd pain. Full 12 point ROS attempted and unable to ascertain due to MS Exam: Vitals reviewed in chart GEN-mod distress heart tachycardic HEENT trach in place secretions are plentiful Lungs wet rhonchi at
bases abd PEG in place distended absent bs TTP! LE b/l +1 pitting edema salazar in place draining clear yellow urine
Plan:
# Bowel Perforation
-02/24- CT A/P- personally reviewed- Moderate free air an mild free fluid in the abdomen and pelvis suggesting ruptured viscus probably bowel. Associated small bowel pneumatosis and mild small bowel dilatation.
Moderate left lower lobe findings suggesting pneumonia.
- extremely poor prognosis
- surgery input appreciated-futile
- DC abx - clearly explained futility of care- POA expresses understanding
- Start morphine gtt- agreeable
- continue comfort based approat
- DC IVF
- start scop patch
- imminent
#Recurrent PNA
- overall extremely poor prognosis likely recurrent episodes
- d/w ID and mutually agreed re prognosis and futility of care
#Ventilator associated pneumonia-resolved
#Acute blood loss anemia-
#SCC of the tongue base.
Oncology consulted, determined no longer candidate for chemotherapy.
Radiation oncology recommended palliative radiation therapy to temporize bleeding in case patient rebleeds.
02/19-ENT placed 8 cuffed Shiley with Passy-Manteca valve.
poor prognosis hospice appropriate
#Acute toxic metabolic encephalopathy-
Multifactorial-likely a confluence of critical disease, infection
Zyprexa 10 mg, restraints as needed. Recommended refraining from using restraints.
Ativan 0.5 mg as needed.
#Hematuria-
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 Hematuria resolved.
Continues to remain on bethanechol per urology.
Patient developed acute urinary retention-failed voiding trial, back on Salazar on 02/15/2025.
Suspected secondary to neurogenic bladder from radiation-bethanechol added by urology.
#Hyponatremia-
#Emphysema on CT scan, pulmonary nodule of 6 mm
Copious amounts of tracheostomy secretions-start anticholinergics
Likely a confluence of infection and decreased clearance from the tumor burden.
#GI prophylaxis-on lansoprazole
#Chronic pain syndrome-
Due to bowel perf has opioid dependence
start morphine gtt
#Cachexia-
Severe protein calorie malnutrition based on muscle mass and temporal wasting.
Decreased consumption of oral intake-greater than 20%
DC TF with bowel perf
#CODE STATUS-limited DNR--->DNR
Poor prognosis as determined by all specialists.
Dispo - cont comfort care measures
Time spent coordinating care, review of plan of care with resident, personally reviewed records in EMR, med rec, consults, notes, labs, radiology, d/w nursing family at great length agreeable to comfort care � 51 mins
Original Note:
Today's Communication/Plan
-
Comfort care measures
Assessment / Plan
Assessment / Plan
Assessment/plan
#Bowel perforation
-Stat CT chest abdomen pelvis 02/24- Moderate free air an mild free fluid in the abdomen and pelvis suggesting ruptured viscus probably bowel. Associated small bowel pneumatosis and mild small bowel dilatation. Moderate left lower lobe findings
suggesting pneumonia. Nodular appearance superiorly. Repeat exam in approximately 2 weeks following treatment is recommended to confirm improvement or resolution. Stable from prior chest x-ray 02/22/2025.
Simple left renal cysts. Bilateral too small to characterize hypodense renal lesions likely benign cysts. Stable mid thoracic spine compression fracture. Stable sternal fracture. Mild emphysematous disease. Stable
Discontinue curative interventions
Continue comfort care measures including symptomatic management of pain, dyspnea, secretions
Hospice discussion ongoing with family
#Left lower lobe pneumonia
-CXR 02/22- Large airspace consolidation in the basilar left lower lobe suggesting SEVERE LEFT LOWER LOBE PNEUMONIA
#Hyponatremia
-Urine osmo 597, urine any 18, serum osmo 266
-Given urine osmole, likely inappropriately concentrated due to impaired free water excretion vs high free water intake
#Ventilator associated pneumonia-
-Now resolved
-S/p mechanical ventilation for airway protection after massive hemoptysis, caused fevers with green purulent sputum.
-Respiratory cultures consistent with MSSA and Pseudomonas aeruginosa from tracheostomy tube, started on vancomycin cefepime and Flagyl.
-Completed course of Keflex ciprofloxacin and metronidazole via PEG tube from 02/05 through 02/14-
-tracheostomy suctions.
-ENT input appreciated. changed his tracheostomy to 8 cuffed Shiley.
#Difficulty breathing secondary to 6 cuffed Shiley
-Resolved upon switching to 8 cuffed Shiley
#Massive hemoptysis-resolved.
#Acute blood loss anemia-
-Resolved, secondary to massive hemoptysis from the tumor site, s/p 1 unit RBC
#SCC of the tongue base.
-Oncology consulted, determined no longer candidate for chemotherapy.
-Radiation oncology recommended palliative radiation therapy to temporize bleeding in case patient rebleeds.
#Acute toxic metabolic encephalopathy-now resolved
-Ativan 0.5 mg as needed.
#Hematuria-
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 Hematuria resolved.
-Finally Salazar catheter removed on 02/19/2025. Patient passed voiding trial.
-Continues to remain on bethanechol per urology.
-Salazar catheter removed on 02/13-per urology recommendations.
-Patient developed acute urinary retention-failed voiding trial, back on Salazar on 02/15/2025.
-Suspected secondary to neurogenic bladder from radiation-bethanechol added by urology.
#Emphysema on CT scan, pulmonary nodule of 6 mm
#Cachexia-
-Severe protein calorie malnutrition based on muscle mass and temporal wasting.
-Decreased consumption of oral intake-greater than 20%
DVT prophylaxis-SCDs
CODE STATUS- DNR
Overall poor prognosis
Anticipated Discharge: 24 - 48 hours
Subjective/Interval History
-
Date of Service: February 25, 2025
Objective Data
-
Vital Signs:
Vital Signs
Temp Pulse Resp BP Pulse Ox
99.2 F 128 20 122/90 88
02/24/25 19:41 02/24/25 19:41 02/24/25 19:41 02/24/25 19:41 02/24/25 22:53
I&O
02/24/25 02/25/25 02/26/25
06:59 06:59 06:59
Intake Total 0 / 0 1300 / 1300
Output Total 1725 / 1725 780 / 780
Balance -1725 / -1725 520 / 520
Review of Systems
-
All other systems: Reviewed and negative (Except as documented)
Physical Exam
-
General: Appears Chronically Ill
Respiratory: Rales and Crackles
Cardiac: S1/S2 and Irregular Rhythm
GI: Soft, Tender and Distended
Psych: Anxious
[2025-02-25] MEDS: LIDOCAINE 4% PATCH TOPICAL (07:21)
[2025-02-25] MEDS: PROTONIX IV 40 MG IV (07:59)
[2025-02-25] MEDS: NSS (PRESERVATIVE FREE) 10 ML IV (07:59)
[2025-02-25] MEDS: MORPHINE 100 IV (11:44)
--- NOTE | 2025-02-25 11:55 | HOSPNOTE ---
Patient continues on comfort measures. Spouse is in agreement to stop antibiotics and start a morphine drip. Updated Resident and floor RN. We will continue to follow for support.
--- NOTE | 2025-02-25 13:01 | CM ---
CM following re: discharge planning.
Reviewed pt's chart.
Per chart review, a plan of care has been shifter to comfort care yesterday, pt continue on comfort care. marketing liaison following.
D/C plan: comfort care. marketing liaison following.
CM is available for emotional support.
[2025-02-25] MEDS: MORPHINE SULFATE 2 MG IV ×2 (15:09→16:49)
[2025-02-25] MEDS: NSS (PRESERVATIVE FREE) 0.25 ML IV (16:50)
[2025-02-25 19:42] VITALS: BP 137/82
[2025-02-26] MEDS: DILAUDID 0.5 MG IV ×2 (00:59→06:48)
[2025-02-26] MEDS: ROBINUL 0.2 MG IV ×3 (06:39→21:12)
[2025-02-26 07:05] VITALS: BP 121/77
--- NOTE | 2025-02-26 07:20 | W.PN.HOSP.TC ---
Addendum entered and electronically signed by Ean Gautam MD 02/26/25 20:24:
Attending Addendum-
I saw and evaluated the patient. I reviewed the resident�s note and agree with findings and plan as documented in the resident�s note. Sub: patient appears uncomfortable. Seen with present. 'he can have some IV pain meds' Full 12 point ROS
attempted and unable to ascertain due to MS Exam: Vitals reviewed in chart GEN-mod distress heart tachycardic HEENT trach in place secretions are plentiful Lungs wet rhonchi at bases abd PEG in place distended absent bs TTP LE b/l +1 pitting edema
salazar in place draining clear yellow urine
Plan:
# Bowel Perforation
-02/24- CT A/P- personally reviewed- Moderate free air an mild free fluid in the abdomen and pelvis suggesting ruptured viscus probably bowel. Associated small bowel pneumatosis and mild small bowel dilatation.
Moderate left lower lobe findings suggesting pneumonia.
- poor prognosis
- surgery input appreciated-futile
- DC abx - clearly explained futility of care- POA expresses understanding
- increase morphine gtt- agreeable
- continue comfort based approach
- DC'd IVF
- cont scop patch
- imminent
#Recurrent PNA
- overall poor prognosis likely recurrent episodes
- d/w ID and mutually agreed re prognosis and futility of care
#Ventilator associated pneumonia-resolved
#Acute blood loss anemia
#SCC of the tongue base-poor prognosis hospice appropriate
#Acute toxic metabolic encephalopathy
#Hematuria
#Hyponatremia
#GI prophylaxis-on lansoprazole
#Chronic pain syndrome
#Severe protein calorie malnutrition
#CODE STATUS-limited DNR--->DNR
Dispo - cont comfort care measures
Time spent coordinating care, review of plan of care with resident, personally reviewed records in EMR, med rec, d/w nursing multiple times and family at great length � 35 mins
Original Note:
Today's Communication/Plan
-
Comfort care measures
Assessment / Plan
Assessment / Plan
Assessment/plan
#Bowel perforation
-Stat CT chest abdomen pelvis 02/24- Moderate free air an mild free fluid in the abdomen and pelvis suggesting ruptured viscus probably bowel. Associated small bowel pneumatosis and mild small bowel dilatation. Moderate left lower lobe findings
suggesting pneumonia. Nodular appearance superiorly. Repeat exam in approximately 2 weeks following treatment is recommended to confirm improvement or resolution. Stable from prior chest x-ray 02/22/2025.
Simple left renal cysts. Bilateral too small to characterize hypodense renal lesions likely benign cysts. Stable mid thoracic spine compression fracture. Stable sternal fracture. Mild emphysematous disease. Stable
Discontinue curative interventions
Continue comfort care measures including symptomatic management of pain, dyspnea, secretions
Hospice discussion ongoing with family
#Left lower lobe pneumonia
-CXR 02/22- Large airspace consolidation in the basilar left lower lobe suggesting SEVERE LEFT LOWER LOBE PNEUMONIA
- Extremely poor prognosis
#Ventilator associated pneumonia-
#SCC of the tongue base.
-Oncology consulted, determined no longer candidate for chemotherapy.
#Cachexia-
-Severe protein calorie malnutrition based on muscle mass and temporal wasting.
-Decreased consumption of oral intake-greater than 20%
CODE STATUS- DNR
Anticipated Discharge: > 48 hours
Subjective/Interval History
-
Date of Service: February 26, 2025
Objective Data
-
Vital Signs:
Vital Signs
Temp Pulse Resp BP Pulse Ox
99.5 F 97 24 137/82 89
02/25/25 19:42 02/25/25 19:42 02/25/25 19:42 02/25/25 19:42 02/25/25 19:42
I&O
02/25/25 02/26/25 02/27/25
06:59 06:59 06:59
Intake Total 1300 / 1300
Output Total 780 / 780 1050 / 1050
Balance 520 / 520 -1050 / -1050
Review of Systems
-
Unable to obtain full review of systems at this time due to: Acuity
Physical Exam
-
General: Appears Chronically Ill
Respiratory: Crackles
Cardiac: S1/S2
GI: Tender and Distended
[2025-02-26] MEDS: NSS (PRESERVATIVE FREE) 10 ML IV ×2 (07:57→08:23)
[2025-02-26] MEDS: LIDOCAINE 4% PATCH TOPICAL (07:57)
[2025-02-26] MEDS: PROTONIX IV 40 MG IV (07:57)
[2025-02-26] MEDS: MORPHINE SULFATE 2 MG IV ×4 (08:23→17:11)
[2025-02-26] MEDS: ATIVAN 0.5 MG IV (08:23)
[2025-02-26] MEDS: LIDOCAINE 4% PATCH 1 PATCH TOPICAL (08:34)
--- NOTE | 2025-02-26 13:25 | HOSPNOTE ---
Patient continues on comfort measures. Emotional support provided to family.
--- NOTE | 2025-02-26 13:34 | PTCARENOTE ---
Patient's morphine gtt increased to step 2 per protocol d/t patient reports of pain, infusing at 2mg/hr through R subq port. Trach care and suction performed by this RN and resp therapist, #8 Bonifacio inner cannula replaced, extras at bedside, thick
parnell secretions suctioned via trach. Full bed bath provided to patient by this RN and tech, #30 CC placed on patient, draining yellow/marlen colored urine. Sacrum intact, air overlay in place.
[2025-02-26 20:16] VITALS: BP 138/89
[2025-02-27] MEDS: ROBINUL 0.2 MG IV ×3 (04:19→13:10)
[2025-02-27] MEDS: DILAUDID 0.5 MG IV (04:34)
[2025-02-27] MEDS: MORPHINE SULFATE 2 MG IV ×7 (05:36→22:07)
[2025-02-27 07:25] VITALS: BP 144/82
--- NOTE | 2025-02-27 07:38 | W.PN.HOSP.TC ---
Addendum entered and electronically signed by Ean Gautam MD 02/27/25 19:44:
Attending Addendum-
I saw and evaluated the patient. I reviewed the resident�s note and agree with findings and plan as documented in the resident�s note. Sub: patient appears more comfortable today. was just given pain meds. Seen with present. Happy with care and
surprised he is still alive. Full 12 point ROS attempted and unable to ascertain due to MS Exam: Vitals reviewed in chart GEN-NAD heart tachycardic HEENT trach in place minimal secretions Lungs wet rhonchi at bases abd PEG in place distended absent
bs TTP LE b/l +1 pitting edema salazar in place draining clear yellow urine
Plan:
# Bowel Perforation
-02/24- CT A/P- personally reviewed- Moderate free air an mild free fluid in the abdomen and pelvis suggesting ruptured viscus probably bowel. Associated small bowel pneumatosis and mild small bowel dilatation.
Moderate left lower lobe findings suggesting pneumonia.
- poor prognosis
- surgery input appreciated-futile
- increase morphine gtt- agreeable
- continue comfort based approach
- cont scop patch
- imminent
#Recurrent PNA
#Ventilator associated pneumonia-resolved
#Acute blood loss anemia
#SCC of the tongue base-poor prognosis hospice appropriate
#Acute toxic metabolic encephalopathy
#Hematuria
#Hyponatremia
#GI prophylaxis-on lansoprazole
#Chronic pain syndrome
#Severe protein calorie malnutrition
#CODE STATUS-limited DNR--->DNR
Dispo - cont comfort care measures
Time spent coordinating care, review of plan of care with resident, personally reviewed records in EMR, med rec, d/w nursing multiple times and family at great length � 35 mins
Original Note:
Today's Communication/Plan
-
;/
Assessment / Plan
Assessment / Plan
Assessment/plan
#Bowel perforation
-Stat CT chest abdomen pelvis 02/24- Moderate free air an mild free fluid in the abdomen and pelvis suggesting ruptured viscus probably bowel. Associated small bowel pneumatosis and mild small bowel dilatation. Moderate left lower lobe findings
suggesting pneumonia. Nodular appearance superiorly. Repeat exam in approximately 2 weeks following treatment is recommended to confirm improvement or resolution. Stable from prior chest x-ray 02/22/2025.
Simple left renal cysts. Bilateral too small to characterize hypodense renal lesions likely benign cysts. Stable mid thoracic spine compression fracture. Stable sternal fracture. Mild emphysematous disease. Stable
Discontinue curative interventions
Continue comfort care measures including symptomatic management of pain, dyspnea, secretions
#Left lower lobe pneumonia
-CXR 02/22- Large airspace consolidation in the basilar left lower lobe suggesting SEVERE LEFT LOWER LOBE PNEUMONIA
- Extremely poor prognosis
#Ventilator associated pneumonia-
#SCC of the tongue base.
-Oncology consulted, determined no longer candidate for chemotherapy.
#Cachexia-
-Severe protein calorie malnutrition based on muscle mass and temporal wasting.
-Decreased consumption of oral intake-greater than 20%
CODE STATUS- DNR
Anticipated Discharge: 24 - 48 hours
Subjective/Interval History
-
Date of Service: February 27, 2025
Objective Data
-
Vital Signs:
Vital Signs
Temp Pulse Resp BP Pulse Ox
100.2 F 103 20 138/89 96
02/26/25 20:16 02/26/25 20:16 02/26/25 20:16 02/26/25 20:16 02/26/25 20:16
I&O
02/26/25 02/27/25 02/28/25
06:59 06:59 06:59
Output Total 1050 / 1050 750 / 750
Balance -1050 / -1050 -750 / -750
Physical Exam
-
General: Appears Chronically Ill
Respiratory: Crackles
Cardiac: S1/S2
GI: Tender and Distended
[2025-02-27] MEDS: NSS (PRESERVATIVE FREE) 10 ML IV (07:46)
[2025-02-27] MEDS: PROTONIX IV 40 MG IV (07:46)
--- NOTE | 2025-02-27 12:26 | CM ---
CM following re: discharge planning.
Reviewed pt's chart.
Pt continues on comfort care. patient account liaison following.
D/C plan: comfort care. patient account liaison following.
CM is available for emotional support.
[2025-02-27] MEDS: NSS (PRESERVATIVE FREE) 0.5 ML IV ×3 (13:00→21:23)
[2025-02-27] MEDS: ATIVAN 1 MG IV ×3 (13:00→21:20)
[2025-02-27] MEDS: TRANSDERM-SCOP 1 PATCH TRANSDERM (13:10)
[2025-02-27] MEDS: MORPHINE 100 IV (16:33)
--- NOTE | 2025-02-27 17:09 | HOSPNOTE ---
Patient continues on comfort care, hospice available to provide support.
[2025-02-27] MEDS: MORPHINE SULFATE 4 MG IV ×2 (17:29→17:49)
[2025-02-27 19:15] VITALS: BP 171/90
[2025-02-28] MEDS: MORPHINE SULFATE 2 MG IV (05:14)
[2025-02-28 07:05] VITALS: BP 145/100
[2025-02-28] MEDS: PROTONIX IV 40 MG IV (08:18)
[2025-02-28] MEDS: NSS (PRESERVATIVE FREE) 10 ML IV (08:18)
[2025-02-28] MEDS: MORPHINE SULFATE 4 MG IV ×2 (08:19→18:11)
[2025-02-28] MEDS: ROBINUL 0.2 MG IV (08:20)
[2025-02-28] MEDS: ATIVAN 1 MG IV ×2 (08:31→18:12)
--- NOTE | 2025-02-28 11:10 | W.PN.HOSP.TC ---
Today's Communication/Plan
-
Comfort care
Assessment / Plan
Assessment / Plan
Assessment/plan
#Bowel perforation
#Left lower lobe pneumonia
#Ventilator associated pneumonia
#SCC of the tongue base.
#Cachexia--Severe protein calorie malnutrition based on muscle mass and temporal wasting.
#CODE STATUS- DNR
Plan
Continue comfort care measures including symptomatic management of pain, dyspnea, secretions
Morphine gtt
D/W at bed side
Anticipated Discharge: > 48 hours
Subjective/Interval History
-
Date of Service: February 28, 2025
Objective Data
-
Vital Signs:
Vital Signs
Temp Pulse Resp BP Pulse Ox
98.5 F 123 20 145/100 86
02/28/25 07:05 02/28/25 07:05 02/28/25 07:05 02/28/25 07:05 02/28/25 07:05
I&O
02/27/25 02/28/25 03/01/25
06:59 06:59 06:59
Intake Total 0 / 0
Output Total 750 / 750 775 / 775
Balance -750 / -750 -775 / -775
--- NOTE | 2025-02-28 12:56 | HOSPNOTE ---
Patient comfortable with Morphine IV , informal conference with staff nurse Karly, family and friends visiting. Hospice nurse did not interrupt friends visit, available for support as needed.
[2025-02-28] MEDS: MORPHINE 100 IV (14:02)
[2025-02-28] MEDS: NSS (PRESERVATIVE FREE) 0.5 ML IV (18:13)
--- NOTE | 2025-02-28 18:23 | PTCARENOTE ---
8 shiley inner cannula exchanged by this RN this evening. prn breakthrough and ativan given through R SQ port. see MAR for proper documenttion. #25 CC intact and wound care around trach completed this morning. family educated on morphine gtt as new
bag was hung this afternoon. pt with copious amounts of thick white/brown/yellow colored production through trach site this morning and this evening.
[2025-02-28 19:32] VITALS: BP 128/79
[2025-03-01] MEDS: MORPHINE SULFATE 4 MG IV ×2 (02:36→15:38)
[2025-03-01 07:25] VITALS: BP 121/78
[2025-03-01] MEDS: NSS (PRESERVATIVE FREE) 10 ML IV (08:35)
[2025-03-01] MEDS: PROTONIX IV 40 MG IV (08:36)
[2025-03-01] MEDS: MORPHINE 100 IV (11:10)
--- NOTE | 2025-03-01 14:05 | HOSPNOTE ---
Patient continues on comfort measures. Patient is comfortable on Morphine infusion. bedside. Emotional support provided. Reviewed inpatient hospice vs comfort measures. is okay with continuing comfort measures at this time.
--- NOTE | 2025-03-01 14:38 | W.PN.HSP.1 ---
Assessment / Plan
-
Seen earlier today. Late documentation
Assessment/plan
#Bowel perforation
#Left lower lobe pneumonia
#Ventilator associated pneumonia
#SCC of the tongue base.
#Cachexia--Severe protein calorie malnutrition based on muscle mass and temporal wasting.
#CODE STATUS- DNR
Today's Communication
Plan
Continue comfort care measures including symptomatic management of pain, dyspnea, secretions
Morphine gtt
D/W RN
Physical Exam
-
Temp Pulse Resp BP Pulse Ox
99.2 F 96 16 121/78 97
03/01/25 07:25 03/01/25 07:25 03/01/25 07:25 03/01/25 07:25 03/01/25 07:25
[2025-03-01 19:44] VITALS: BP 141/77
[2025-03-02] MEDS: MORPHINE SULFATE 4 MG IV ×6 (01:49→20:16)
[2025-03-02] MEDS: ROBINUL 0.2 MG IV ×3 (04:14→17:09)
[2025-03-02 07:00] VITALS: BP 154/95
[2025-03-02] MEDS: NSS (PRESERVATIVE FREE) 10 ML IV (09:01)
[2025-03-02] MEDS: PROTONIX IV 40 MG IV (09:01)
[2025-03-02] MEDS: MORPHINE 100 IV (09:38)
[2025-03-02] MEDS: NSS (PRESERVATIVE FREE) 0.5 ML IV (10:33)
[2025-03-02] MEDS: ATIVAN 1 MG IV (10:33)
--- NOTE | 2025-03-02 11:41 | W.PN.HSP.1 ---
Assessment / Plan
-
#Bowel perforation
#Left lower lobe pneumonia
#Ventilator associated pneumonia
#SCC of the tongue base.
#Cachexia--Severe protein calorie malnutrition based on muscle mass and temporal wasting.
#CODE STATUS- DNR
Today's Communication
Continue comfort care measures including symptomatic management of pain, dyspnea, secretions
Morphine gtt Step 3
Pt awake and able write down. But seems to be confused.
D/W RN
Physical Exam
-
Temp Pulse Resp BP Pulse Ox
99.5 F 115 18 154/95 97
03/02/25 07:00 03/02/25 07:00 03/02/25 07:00 03/02/25 07:00 03/02/25 07:00
--- NOTE | 2025-03-02 12:18 | CM ---
CM following re: discharge planning.
Reviewed pt's chart.
Pt continues on comfort care. home hospice aide following.
D/C plan: comfort care. home hospice aide following.
CM is available for emotional support.
[2025-03-02] MEDS: TRANSDERM-SCOP 1 PATCH TRANSDERM (15:47)
[2025-03-02 19:00] VITALS: BP 130/69
[2025-03-03] MEDS: ATIVAN 1 MG IV ×4 (04:37→15:04)
[2025-03-03] MEDS: NSS (PRESERVATIVE FREE) 0.5 ML IV ×2 (04:38→12:10)
[2025-03-03] MEDS: MORPHINE SULFATE 4 MG IV ×4 (04:42→11:58)
[2025-03-03] MEDS: MORPHINE 100 IV ×2 (05:46→23:53)
[2025-03-03 08:32] VITALS: BP 169/94
[2025-03-03] MEDS: NSS (PRESERVATIVE FREE) 10 ML IV (08:40)
[2025-03-03] MEDS: PROTONIX IV 40 MG IV (08:40)
--- NOTE | 2025-03-03 09:58 | HOSPNOTE ---
We continue to follow for support. No family was present when I went to see patient.
[2025-03-03] MEDS: ROBINUL 0.2 MG IV (10:21)
--- NOTE | 2025-03-03 12:37 | W.PN.HSP.1 ---
Assessment / Plan
-
#Bowel perforation
#Left lower lobe pneumonia
#Ventilator associated pneumonia
#SCC of the tongue base.
#Cachexia--Severe protein calorie malnutrition based on muscle mass and temporal wasting.
#CODE STATUS- DNR
Today's Communication
Appears comfortable
Continue comfort care measures including symptomatic management of pain, dyspnea, secretions
Morphine gtt Step 4
D/W Daughter at bed side
D/W RN
Physical Exam
-
Temp Pulse Resp BP Pulse Ox
98.1 F 92 16 169/94 95
03/03/25 08:32 03/03/25 08:32 03/03/25 08:32 03/03/25 08:32 03/03/25 08:32
[2025-03-03] MEDS: MORPHINE SULFATE 6 MG IV ×3 (13:15→15:04)
--- NOTE | 2025-03-03 13:58 | CM ---
CM following re: discharge planning.
Reviewed pt's chart.
Pt continues on comfort care. hospice massage therapist following.
D/C plan: comfort care. hospice massage therapist following.
CM is available for emotional support.
--- NOTE | 2025-03-03 14:58 | PN.CDI ---
CDI
- -
CDI:
Physician Documentation Request
Admit Date: 01/29/25 15:02
Dear Doctor Patricia,
Patient admitted with hemoptysis.
03/02 Nursing skin assessment, 'DTI (Deep Tissue Injury) sacral pressure injury.'
Physician documentation of the type and location of wounds is required for compliant documentation. Based on the above clinical findings and your assessment, please provide the following in your progress note:
Type (etiology) of ulcer/wound:
- Pressure (decubitus) ulcer
- Other
- Unable to determine
For a pressure ulcer, please also include the stage* of the ulcer:
- Stage 1 - Skin intact, non-blanchable redness
- Stage 2 - Partial thickness loss of dermis, includes intact or open blister
- Stage 3 - Full thickness tissue not including bone, tendon or muscle
- Stage 4 - Full thickness tissue loss, including exposed bone, tendon or muscle
- Unstageable - Full thickness loss in which the base of the ulcer is covered by slough (yellow, parnell, price, green or brown) and/or eschar (parnell, brown or black) in the wound bed.
- Unable to determine
Use of terms such as suspected, likely, concern for, or probable (associated with a specific diagnosis that is being evaluated, monitored, or treated as if it exists) are acceptable and can be coded in the inpatient setting, when documented at the
time of discharge.
Thank you,
Jovanna ALVARADO,RN,CCDS
CDI Specialist
Available via [employer] text
Please use your independent medical judgment in providing your response.
*Source: National Pressure Ulcer Advisory Panel (NPUAP)
[2025-03-03] MEDS: MORPHINE SULFATE 8 MG IV ×2 (16:50→22:21)
--- NOTE | 2025-03-03 17:49 | PTCARENOTE ---
pt on a step 5 gtt going at 8mg an hour. pt with 15-20seconds of apnea. pt unresponsive at this time. inner cannula exchanged this morning, wound care complete and partial bath complete. #25cc applied. static air overlay inflated.
[2025-03-03 19:05] VITALS: BP 105/70
[2025-03-04 07:05] VITALS: BP 73/47
[2025-03-04] MEDS: PROTONIX IV 40 MG IV (09:24)
[2025-03-04] MEDS: NSS (PRESERVATIVE FREE) 10 ML IV (09:25)
[2025-03-04] MEDS: MORPHINE SULFATE 8 MG IV ×4 (09:34→13:58)
[2025-03-04] MEDS: MORPHINE 100 IV (09:41)
--- NOTE | 2025-03-04 10:13 | W.PN.HSP.1 ---
Addendum entered and electronically signed by Nakia Gomez MD 03/04/25 11:20:
DTI sacrum
Original Note:
Assessment / Plan
-
#Bowel perforation
#Left lower lobe pneumonia
#Ventilator associated pneumonia
#SCC of the tongue base.
#Cachexia--Severe protein calorie malnutrition based on muscle mass and temporal wasting.
#CODE STATUS- DNR
Today's Communication
Appears comfortable
Shallow breathing
Continue comfort care measures including symptomatic management of pain, dyspnea, secretions
Morphine gtt Step 4
D/W multiple family members at bed side including
D/W RN
Physical Exam
-
Temp Pulse Resp BP Pulse Ox
97.9 F 111 20 73/47 79
03/04/25 07:05 03/04/25 07:05 03/04/25 07:05 03/04/25 07:05 03/04/25 07:05
[2025-03-04] MEDS: ATIVAN 1 MG IV (16:07)
[2025-03-04] MEDS: MORPHINE SULFATE 10 MG IV (16:08)
--- NOTE | 2025-03-04 18:18 | W.PN.DEATH ---
Pronouncement of
-
Called to see patient to pronounce.
No spontaneous heart tones or respirations noted.
Patient not responsive to verbal stimuli.
Patient is pronounced .
Time of : 18:00
Date of : 03/04/25
Cause of : Bowel perforation, pneumonia
Family Notified: Yes
== END 2025-03-04 20:42 | disposition expired | DRG 146 ==
LOC: 2 NORTH 15:02
PROVIDERS: Hospitalist; Internal Medicine; Internal Medicine Critical Care Medicine; Nurse Practitioner Family; Nurse Practitioner Primary Care; Otolaryngology; Physician Assistant; Student in an Organized Health Care Education/Training Program; ADMITTING PHYSICIAN Student in an Organized Health Care Education/Training Program; ATTENDING PHYSICIAN Internal Medicine; CONSULT PHYSICIAN Internal Medicine; CONSULT PHYSICIAN Student in an Organized Health Care Education/Training Program; CONSULT PHYSICIAN Surgery; EMERGENCY PHYSICIAN Emergency Medicine; FAMILY PHYSICIAN Nurse Practitioner Family; OTHER PHYSICIAN Internal Medicine Hematology & Oncology; OTHER PHYSICIAN Surgery
PROC: 5A1945Z Respiratory Ventilation, 24-96 Consecutive Hours (ICD-10-PCS; 2025-01-29)
PROC: 30233N1 Transfusion of Nonautologous Red Blood Cells into Peripheral Vein, Percutaneous Approach (ICD-10-PCS; 2025-01-29)
PROC: 0B21XFZ Change Tracheostomy Device in Trachea, External Approach (ICD-10-PCS; 2025-01-29)
PROC: [UNRECOGNIZED PROCEDURE] (2025-01-29)
PROC: 5A1935Z Respiratory Ventilation, Less than 24 Consecutive Hours (ICD-10-PCS; 2025-01-31)
DX: C01 Malignant neoplasm of base of tongue (principal); E43 Unspecified severe protein-calorie malnutrition; K63.1 Perforation of intestine (nontraumatic); G92.8 Other toxic encephalopathy; J96.01 Acute respiratory failure with hypoxia; R04.2 Hemoptysis; J95.851 Ventilator associated pneumonia; D62 Acute posthemorrhagic anemia; F11.20 Opioid dependence, uncomplicated; J44.0 Chronic obstructive pulmonary disease with (acute) lower respiratory infection; Z16.24 Resistance to multiple antibiotics; K55.9 Vascular disorder of intestine, unspecified; Z68.1 Body mass index [BMI] 19.9 or less, adult; R64 Cachexia; E87.1 Hypo-osmolality and hyponatremia; F05 Delirium due to known physiological condition; Z51.5 Encounter for palliative care; Z66 Do not resuscitate; J04.10 Acute tracheitis without obstruction; R82.81 Pyuria; R33.9 Retention of urine, unspecified; G89.3 Neoplasm related pain (acute) (chronic); T17.990A Other foreign object in respiratory tract, part unspecified in causing asphyxiation, initial encounter; W44.F9XA Other object of natural or organic material, entering into or through a natural orifice, initial encounter; Y84.8 Other medical procedures as the cause of abnormal reaction of the patient, or of later complication, without mention of misadventure at the time of the procedure; R00.0 Tachycardia, unspecified; J43.9 Emphysema, unspecified; L89.156 Pressure-induced deep tissue damage of sacral region; R31.9 Hematuria, unspecified; E87.6 Hypokalemia; R13.10 Dysphagia, unspecified; K21.9 Gastro-esophageal reflux disease without esophagitis; E83.42 Hypomagnesemia; K59.00 Constipation, unspecified; G89.4 Chronic pain syndrome; I10 Essential (primary) hypertension; I25.10 Atherosclerotic heart disease of native coronary artery without angina pectoris; G47.30 Sleep apnea, unspecified; R91.1 Solitary pulmonary nodule; B96.5 Pseudomonas (aeruginosa) (mallei) (pseudomallei) as the cause of diseases classified elsewhere; B95.61 Methicillin susceptible Staphylococcus aureus infection as the cause of diseases classified elsewhere; Z87.891 Personal history of nicotine dependence; Z85.46 Personal history of malignant neoplasm of prostate; Z92.3 Personal history of irradiation; Z93.1 Gastrostomy status; Z92.21 Personal history of antineoplastic chemotherapy; Z88.0 Allergy status to penicillin; Z93.0 Tracheostomy status; Z11.52 Encounter for screening for COVID-19
CPT/HCPCS: 36591; 36600; 70450; 70498; 71045; 71260; 71275; 74177; 80048; 80053; 80202; 81003; 81015; 82805; 82962; 83605; 83735; 83930; 83935; 84100; 84300; 84478; 85018; 85025; 85027; 85610; 85730; 86850; 86900; 86901; 86920; 87040; 87070; 87077; 87086; 87147; 87186; 87205; 87324; 87449; 87502; 87811; 92507; 92610; 93005; 94002; 94003; 94640; 96374; 96376; 97116; 97163; 97167; 97530; 97535; 99291; 99406; J2358; P9016; Q9967